=== PATIENT | female | born 1945 | race Caucasian/White ===

== ENCOUNTER → 2016-10-20 | Outpatient (CLI) | payer BC ==
[~2016-10-20] MED LIST: ADVIN50/60 INH; ALBUAER2 INH; CYAN3INJ IM; FLUC150T PO; INSDGI SC; INSUINJ14 SC; IPRASOL34 INH; MAGN1TAB15 PO; METF1000 PO; MULTCAP33 PO; POLY1POW2 PO; PRED1SUS3 OPB; ROPI0.5T15 PO; SIMV40TA2 PO; TELM40TA11 PO
[2016-10-20 10:58] LABS: HEMATOCRIT 39.5 % (37-47)
[2016-10-20 11:43] LABS: ESTIMATED AVERAGE GLUCOSE 160 mg/dl; HA1C FLAG Normal (Normal)
== END | disposition home or self-care (01) ==
LOC: C.LAB1850 09:38
PROVIDERS: ATTEND Nurse Practitioner Adult Health
DX: E11.9 Type 2 diabetes mellitus without complications (principal)

== ENCOUNTER → 2017-01-29 | Outpatient (CLI) | payer BC ==
[2017-01-29 12:17] LABS: BASO % 0.4 %; BASO ABS # 0.05 K/uL (0-0.2); COMPLETE YES; EOS % 1.1 %; HEMATOCRIT 38.8 % (37-47); IG% 1.2 %; LYMPH % 16.4 %; LYMPH ABS # 2.31 K/uL (1.2-3.4); MEAN CELL VOLUME 88.6 fL (80-100); MEAN CORPUSCULAR HEMOGLOBIN 26.7 pg (25-34); MEAN CORPUSCULAR HGB CONC 30.2 g/dl (32-36); MEAN PLATELET VOLUME 11.8 fL (7.4-10.4); MONO % 4.9 %; PLATELET COUNT 344 K/uL (130-400); RED BLOOD COUNT 4.38 M/uL (4.2-5.4); WHITE BLOOD COUNT 14.08 K/uL (4.8-10.8)
[2017-01-29 12:34] LABS: ALT/SGPT 10 U/L (12-78); BLOOD UREA NITROGEN 17 mg/dl (7-18); BUN/CREATININE RATIO 27.5 (10-20); CARBON DIOXIDE 31 mmol/L (21-32); CHLORIDE 105 mmol/L (98-107); CHOLESTEROL 192 mg/dl (0-200); CREATININE 0.61 mg/dl (0.60-1.20); GLUCOSE 82 mg/dl (70-99); POTASSIUM 3.9 mmol/L (3.5-5.1); SODIUM 143 mmol/L (136-145); TRIGLYCERIDES 64 mg/dl (0-150); VERY LOW DENSITY LIPOPROT CALC 13 mg/dl
[2017-01-29 12:35] LABS: CALCIUM 9.1 mg/dl (8.5-10.1)
[2017-01-29 12:45] LABS: ALB/GLOB RATIO 1.1 (0.9-2); ALKALINE PHOSPHATASE 68 U/L (45-117); AST/SGOT 6 U/L (15-37); CHOLESTEROL/HDL RATIO 2.3; HDL CHOLESTEROL 84 mg/dl; LDL CHOLESTEROL CALCULATED 95 mg/dl; THYROID STIMULATING HORMONE 0.804 uIu/ml (0.300-4.500)
[2017-01-29 12:55] LABS: RATIO 22.4 mcg/mg (0-30.0)
[2017-01-29 13:41] LABS: ESTIMATED AVERAGE GLUCOSE 194 mg/dl; HA1C FLAG Normal (Normal)
[2017-02-03 20:20] LABS: ALTERNARIA CLASS 0; ALTERNARIA IGE <0.10 KU/L; ASPERG FUMIG CLASS 0; ASPERG FUMIG IGE <0.10 KU/L; BAHIA GRASS ASM CLASS 0; BAHIA GRASS IGE <0.10 KU/L; BERMUDA GRASS CLASS 0; BERMUDA GRASS IGE <0.10 KU/L; BIRCH CLASS 0; BLACK LOCUST CLASS 0; BLACK LOCUST IGE <0.35 kU/L (<0.35); CAT DANDER CLASS 0; CLADOSPORIUM HER CLASS 0; CLADOSPORIUM HER IGE <0.10 KU/L; COCKROACH CLASS 0; D. FARINAE CLASS 0; D. FARINAE IGE <0.10 KU/L; D. PTERONYSSINUS CLASS 0; D. PTERONYSSINUS IGE <0.10 KU/L; DOG DANDER CLASS 0; ELM CLASS 0; ENGLISH PLAN CLASS 0; ENGLISH PLAN IGE <0.10 KU/L; JOHNSON CLASS 0; JOHNSON IGE <0.10 KU/L; JUNE (KENTUCKY BLUE) CLASS 0; JUNE IGE <0.10 KU/L; MAPLE (BOX ELDER) IGE <0.10 KU/L; MAPLE CLASS 0; MOUNTAIN CEDAR ASM CLASS 0; MOUNTAIN CEDAR IGE <0.10 KU/L; MUCOR CLASS 0; MUCOR IGE <0.10 KU/L; NETTLE CLASS 0; NETTLE IGE <0.10 KU/L; PENIC NOTATUM CLASS 0; PENIC NOTATUM IGE <0.10 KU/L; ROUGH PIGWEED CLASS 0; ROUGH PIGWEED IGE <0.10 KU/L; SHORT RAGWEED CLASS 0; SHORT RAGWEED IGE <0.10 KU/L; STEMPHY BOTRY CLASS 0; STEMPHY BOTRY IGE <0.10 KU/L; WHITE HICKORY ASM CLASS 0; WHITE HICKORY IGE <0.10 kU/L (<0.35); WHITE MULBERRY CLASS 0; WHITE MULBERRY IGE <0.10 KU/L
--- NOTE | 2017-02-05 08:18 | CODING QUERY MEDICAL NECESSITY ---
CQSUPPORTING DIAGNOSIS NEEDED A supporting diagnosis is required for the test/procedure performed on this patient in order for us to be reimbursed by the patient's insurance. Please provide a supporting diagnosis for the following test/procedure listed below next to the test name along with your signature. *If there is no additional diagnosis for this patient that would support the following test/procedure please document that below next to the test/procedure. Test(s)/Procedure(s) that require a supporting diagnosis: DOS 01/29/17 ALLERGY TESTING Provider Signature: Date: Thank you Lanny Whelan [employer] Once completed, please kindly fax back to [phone] For questions please call [phone]
== END | disposition home or self-care (01) ==
LOC: C.LABBFT 07:49
PROVIDERS: ATTEND Internal Medicine Pulmonary Disease
DX: J45.909 Unspecified asthma, uncomplicated (principal); I10 Essential (primary) hypertension; D50.8 Other iron deficiency anemias; E11.9 Type 2 diabetes mellitus without complications

== ENCOUNTER → 2017-04-09 | Outpatient (CLI) | payer BC ==
--- NOTE | 2017-04-10 12:18 | MAMMOGRAPHY REPORT ---
BILATERAL DIGITAL SCREENING MAMMOGRAM WITH CAD: 04/09/2017 CLINICAL HISTORY: Routine screening. Patient has no complaints. TECHNIQUE: Bilateral CC, MLO and repeat CC views with nipples in profile were obtained. Current stud y was also evaluated with a Computer Aided Detection (CAD) system. COMPARISON: Comparison is made to exams dated: 04/07/2016 mammogram, 04/04/2015 mammogram, 04/03/2014 m ammogram, 03/30/2013 mammogram, 03/29/2012 mammogram, and 03/26/2011 mammogram - [facility]. BREAST COMPOSITION: There are scattered areas of fibroglandular density in both breasts. FINDINGS: There are diffuse bilateral benign-appearing rodlike calcifications and vascular calcificat ions in the breasts. A stable circumscribed mass in the left upper outer quadrant. No new suspiciou s mass, architectural distortion or cluster of microcalcifications is seen. IMPRESSION: ACR BI-RADS CATEGORY 1: NEGATIVE There is no mammographic evidence of malignancy. A 1 year screening mammogram is recommended. The pa tient will receive written notification of the results. Approximately 10% of breast cancers are not detected with mammography. A negative mammographic report should not delay biopsy if a clinically suggestive mass is present. Maria Isabel Pham M.D. ay/:04/09/2017 15:44:54 Hemmer Lockstitch: Dee ODELL)(M), [facility] letter sent: Normal 1/2 BI-RADS Code: ACR BI-RADS Category 1: Negative
== END | disposition home or self-care (01) ==
LOC: C.MAMM 09:19
PROVIDERS: ATTEND Internal Medicine Pulmonary Disease
DX: Z12.31 Encounter for screening mammogram for malignant neoplasm of breast (principal)

== ENCOUNTER → 2017-06-02 | Outpatient (CLI) | payer BC ==
[2017-06-02 13:08] LABS: ESTIMATED AVERAGE GLUCOSE 143 mg/dl; HA1C FLAG Normal (Normal)
== END | disposition home or self-care (01) ==
LOC: C.LABBFT 07:25
PROVIDERS: ATTEND Nurse Practitioner Adult Health
DX: E11.9 Type 2 diabetes mellitus without complications (principal); Z79.4 Long term (current) use of insulin

== ENCOUNTER → 2017-06-05 | Outpatient (CLI) | payer BC ==
--- NOTE | 2017-06-05 09:55 | DIAGNOSTIC IMAGING REPORT ---
CHEST 2 VIEWS ROUTINE CLINICAL HISTORY: R05 [id number] dyspnea COMPARISON STUDY: 12/19/2015 FINDINGS: Unchanging calcified granulomas right lateral costophrenic angle. Thickening of the right minor fissure presumably secondary to localized fluid accumulation. Lungs otherwise appear clear. There are no focal infiltrative changes. IMPRESSION: Chronic change. Moderate thickening of the right minor fissure presumably secondary to localized fluid accumulation. Subsegmental atelectasis is also a consideration. Otherwise negative study. The above report was generated using voice recognition software. It may contain grammatical, syntax or spelling errors. Electronically signed by: Vijay Hernandez M.D. 06/05/2017 9:54 AM Dictated Date/Time: 06/05/2017 9:53 AM
== END | disposition home or self-care (01) ==
LOC: C.RAD1850 09:36
PROVIDERS: ATTEND Physician Assistant Medical
DX: R05 Cough (principal)

== ENCOUNTER → 2017-06-16 | Outpatient (CLI) | payer BC ==
[2017-06-16 12:29] LABS: BLOOD UREA NITROGEN 19 mg/dl (7-18); BUN/CREATININE RATIO 27.2 (10-20); CALCIUM 9.1 mg/dl (8.5-10.1); CARBON DIOXIDE 32 mmol/L (21-32); CHLORIDE 107 mmol/L (98-107); CREATININE 0.71 mg/dl (0.60-1.20); GLUCOSE 105 mg/dl (70-99); POTASSIUM 4.8 mmol/L (3.5-5.1); SODIUM 143 mmol/L (136-145)
== END | disposition home or self-care (01) ==
LOC: C.LAB1850 10:13
PROVIDERS: ATTEND Nurse Practitioner Adult Health
DX: E11.9 Type 2 diabetes mellitus without complications (principal); Z51.81 Encounter for therapeutic drug level monitoring; Z79.4 Long term (current) use of insulin

== ENCOUNTER → 2017-07-14 | Outpatient (CLI) | payer BC ==
--- NOTE | 2017-07-14 09:23 | DIAGNOSTIC IMAGING REPORT ---
CHEST 2 VIEWS ROUTINE CLINICAL HISTORY: R93.8 Abnormal chest [id number] COMPARISON STUDY: 06/05/2017 FINDINGS: The cardiac and mediastinal contours remain stable. There are calcified granulomas within the right lung base. There is decreasing fissural fluid on the right. There is no focal pulmonary consolidation. There is no failure.[ There is a 5 mm opacity within the left midlung zone. This is unlikely to be of clinical significance as bronchogenic carcinoma's of this size are almost never visible on conventional chest x-ray. IMPRESSION: 1. Decreasing fissural fluid 2. Calcified granulomas the right lung base 3. No acute findings. Electronically signed by: Leonidas Aaron M.D. 07/14/2017 9:22 AM Dictated Date/Time: 07/14/2017 9:15 AM
[2017-07-14 13:39] LABS: BLOOD UREA NITROGEN 15 mg/dl (7-18); BUN/CREATININE RATIO 23.2 (10-20); CARBON DIOXIDE 31 mmol/L (21-32); CHLORIDE 104 mmol/L (98-107); CREATININE 0.64 mg/dl (0.60-1.20); GLUCOSE 154 mg/dl (70-99); POTASSIUM 3.9 mmol/L (3.5-5.1); SODIUM 142 mmol/L (136-145)
== END | disposition home or self-care (01) ==
LOC: C.LAB1850 08:53
PROVIDERS: ATTEND Physician Assistant Medical
DX: E11.9 Type 2 diabetes mellitus without complications (principal); R91.8 Other nonspecific abnormal finding of lung field

== ENCOUNTER 2017-10-27 09:11 | Emergency (ER) | payer BC ==
[~2017-10-27] VITALS: Ht 165.1 cm; Wt 121.0 kg
[~2017-10-27 09:11] MED LIST changes: -PRED1SUS3 OPB; +PRED1SUS3 OPL
[2017-10-27 09:17] VITALS: TEMP 36.6; Ht 165.1 cm; Wt 121.0 kg
[2017-10-27] MEDS ORDERED: ONDANSETRON INJ 2 MG/ML 2 ML VIAL IV STA (09:33)
[2017-10-27 09:52] LABS: BASO % 0.6 %; BASO ABS # 0.04 K/uL (0-0.2); EOS % 9.1 %; EOS ABS # 0.64 K/uL (0-0.5); HEMATOCRIT 37.8 % (37-47); HEMOGLOBIN 11.6 g/dL (12.0-16.0); IG# 0.02 K/uL (0.00-0.02); LYMPH % 20.1 %; LYMPH ABS # 1.42 K/uL (1.2-3.4); MEAN CELL VOLUME 89.4 fL (80-100); MEAN CORPUSCULAR HEMOGLOBIN 27.4 pg (25-34); MEAN CORPUSCULAR HGB CONC 30.7 g/dl (32-36); MEAN PLATELET VOLUME 11.1 fL (7.4-10.4); MONO % 6.8 %; MONO ABS # 0.48 K/uL (0.11-0.59); NEUT % 63.1 %; NEUT ABS # 4.47 K/uL (1.4-6.5); PLATELET COUNT 288 K/uL (130-400); RED CELL DISTRIBUTION WIDTH CV 15.4 % (11.5-14.5); RED CELL DISTRIBUTION WIDTH SD 49.8 fL (36.4-46.3); WHITE BLOOD COUNT 7.07 K/uL (4.8-10.8)
[2017-10-27] MEDS: MoRPHine SULFATE 4 MG/ML 1 ML CARP\\VIAL IV PRN ×2 (09:53→12:31)
--- NOTE | 2017-10-27 09:54 | DIAGNOSTIC IMAGING REPORT ---
CHEST ONE VIEW PORTABLE CLINICAL HISTORY: ABDOMINAL PAIN/GI pain. Nausea. COMPARISON STUDY: 07/14/2017 FINDINGS: The bones soft tissues and hemidiaphragms are normal. The cardiomediastinal silhouette is normal. The lungs are clear. The pulmonary vasculature is normal. Mild chronic bibasilar interstitial and peribronchial change. Unchanged calcified granulomas right base. IMPRESSION: Chronic change. No acute process. The above report was generated using voice recognition software. It may contain grammatical, syntax or spelling errors. Electronically signed by: Vijay Hernandez M.D. 10/27/2017 9:52 AM Dictated Date/Time: 10/27/2017 9:51 AM
[2017-10-27 10:01] LABS: INR 0.9 (0.9-1.1); PTT PATIENT 27.3 SECONDS (21.0-31.0)
--- NOTE | 2017-10-27 10:02 | EMERGENCY ROOM VISIT NOTE ---
History Report prepared by Danette: Mayra Pugh Under the Supervision of: Dr. Rajendra Francisco D.O. First contact with patient: 09:23 Chief Complaint: FLANK PAIN Stated Complaint: PAIN IN BACK LEFT SIDE History of Present Illness The patient is a 72 year old female who presents to the Emergency Room with complaints of constant left flank pain beginning Thursday, four days ago. The patient states her pain worsens when she moves and coughs. She denies any urinary bleeding, increased urination, leg pain, chest pain, fevers, rashes or chills. The patient took two Aleve yesterday with minimal relief. The patient has a history of asthma, double knee replacement, hip replacement, hysterectomy , appendectomy, and cholecystectomy. 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 Source of History: patient Onset: four days ago Position: other (left flank) Timing: constant Modifying Factors (Worsening): movement Associated Symptoms: No fevers, No chills, No chest pain, No urinary symptoms Review of Systems See HPI for pertinent positives & negatives. A total of 10 systems reviewed and were otherwise negative. Past Medical & Surgical Medical Problems: (1) Asthma (2) DM (diabetes mellitus) (3) HTN (hypertension) Family History Patient reports no known family medical history. Social History Smoking Status: Never Smoker Marital Status: Housing Status: lives with family Occupation Status: employed Current/Historical Medications Scheduled Amlodipine Besylate (Norvasc), 5 MG PO DAILY Cefdinir (Omnicef), 300 MG PO Q12H Cyanocobalamin (Vitamin B-12 Inj), 1 INJ IM MONTHLY Fluticasone Prop/Salmeterol (Advair Diskus 500/50 60 Dose), 1 PUFF INH BID Insulin Aspart Penfill (Novolog Penfill), 0 SC ACHS Insulin Glargine (Lantus), 35 UNITS SC HS Magnesium Chloride-Calcium (Slow Magnesium/Calcium), 1 TAB PO BID Metformin Hcl (Glucophage), 1,000 MG PO QAM Multiple Vitamins W/ Minerals (Preservision Areds), 1 CAP PO BID Polyethylene Glycol 3350 (Bulk (Polyethylene Glycol 3350), 0.5 DOSE PO QAM Prednisolone Acetate 1% Oph (Pred Forte 1% Oph), 1 DROP OPB QAM Ropinirole (Requip), 1.5 MG PO HS Simvastatin (Zocor), 40 MG PO QPM Telmisartan (Micardis), 40 MG PO QAM Scheduled PRN Albuterol (Ventolin Hfa), 2 PUFFS INH Q4H PRN for Shortness of Breath Fluconazole (Diflucan), 150 MG PO WK PRN Ipratropium-Albuterol (Duoneb), 1 TREATMENT INH TID PRN for Shortness of Breath Oxycodone Immediate Rel Tab (Roxicodone Ir), 1 TAB PO Q4H PRN for Severe Pain Allergies Coded Allergies: No Known Allergies (Verified , 10/27/17) Physical Exam Vital Signs Date Time Temp Pulse Resp B/P (MAP) Pulse Ox O2 Delivery O2 Flow Rate FiO2 10/27/17 14:27 74 20 136/84 96 10/27/17 13:22 77 10/27/17 12:36 96 Nasal Cannula 2.0 10/27/17 12:27 81 20 158/70 95 Nasal Cannula 2.0 10/27/17 10:30 78 20 140/65 92 Room Air 10/27/17 09:52 82 20 168/83 94 Room Air 10/27/17 09:36 96 Room Air 10/27/17 09:33 82 10/27/17 09:17 36.6 83 20 161/80 93 Room Air Physical Exam GENERAL: Patient is awake, alert, and in no acute distress. Patient is uncomfortable appearing and very anxious. EYES: The conjunctivae are clear. The pupils are round and reactive. EARS, NOSE, MOUTH AND THROAT: The nose is without any evidence of any deformity. Mucous membranes are moist tongue is midline NECK: The neck is nontender and supple. RESPIRATORY: Lung sounds diminished throughout, no tachypnea or conversational dyspnea. CARDIOVASCULAR: Regular rate and rhythm noted there no murmurs rubs or gallops normal S1 normal S2 GASTROINTESTINAL: The abdomen is mild distend, no guarding or rigidity. Bowel sounds are present in all quadrants. Abdomen is nontender BACK: No midline tenderness or or step-off noted range of motion in flexion extension as well as rotation no signs of muscle spasm noted MUSCULOSKELETAL/EXTREMITIES: There is no evidence of gross deformity full range of motion is noted in the hips and shoulders SKIN: Pedal edema bilaterally. There is no obvious evidence of any rash. There are no petechiae, pallor or cyanosis noted. NEUROLOGIC: Patient is awake alert and oriented x3 Medical Decision & Procedures ER Provider Diagnostic Interpretation: Radiology results as stated below per my review and radiologist interpretation: CHEST ONE VIEW PORTABLE FINDINGS: The bones soft tissues and hemidiaphragms are normal. The cardiomediastinal silhouette is normal. The lungs are clear. The pulmonary vasculature is normal. Mild chronic bibasilar interstitial and peribronchial change. Unchanged calcified granulomas right base. IMPRESSION: Chronic change. No acute process. The above report was generated using voice recognition software. It may contain grammatical, syntax or spelling errors. Electronically signed by: Vijay Hernandez M.D. ABD/PELVIS NO IV OR ORAL CONT FINDINGS: [employer] Head topogram: Cholecystectomy clips. Total left hip arthroplasty. Lung bases: Multiple solid pulmonary nodules measuring up to 5 mm noted at the lung bases. Calcified pleural plaque on the right. Normal heart size. No pericardial or pleural effusion. Several prominent though small pericardial lymph nodes also noted. Liver: Normal morphology. Density consistent with hepatic steatosis. Biliary: No gross biliary ductal dilatation allowing for noncontrast technique. Gallbladder surgically absent. Pancreas: Moderate parenchymal atrophy. Spleen: Normal noncontrast appearance. Adrenal glands: Normal noncontrast appearance. Kidneys and ureters: Nonobstructing 5 mm calculus at the lower pole the right kidney. No hydronephrosis. Bladder: Incompletely evaluated secondary to underdistention. Pelvic organs: Normal noncontrast appearance. Bowel: Moderate stool burden in the right colon. The patient appears to be postappendectomy. Subtle evidence of mild small bowel wall thickening. No bowel obstruction. Peritoneal cavity: No free fluid or intraperitoneal gas. Lymph nodes: Scattered subcentimeter retroperitoneal nodes likely reactive. Borderline enlarged right external iliac lymph nodes measuring up to 9 mm in short axis. No inguinal lymphadenopathy. Vasculature: Atherosclerosis of the normal caliber abdominal aorta. Abdominal wall: Nonspecific subcutaneous edema in the lumbar region. Musculoskeletal: Total left hip arthroplasty. The acetabular screw courses medial to the medial acetabular wall without significant effect on the adjacent soft tissues. Degenerative changes of the spine. Mild osteopenia. IMPRESSION: 1. Multiple solid pulmonary nodules at the lung bases measuring up to 5 mm. At least a few of these nodules were present in 2009. Multifocal sites of consolidation in the right lung limited evaluation on the prior chest CT to assess for the presence of additional nodules. Follow-up recommended as the chronicity of several nodules cannot be determined. 2. Borderline right external iliac lymphadenopathy. This lymph nodes could be reactive. 3. There is subtle evidence of mild small bowel wall thickening. Correlate for symptoms of enteritis. 4. No evidence of nephrolithiasis or hydronephrosis. 5. Nonobstructing right renal calculus. Please refer to below summary of Fleischner Society 2017 recommendations for follow-up of incidental CT nodules (Shola Michaels et al. Guidelines for management of incidental pulmonary nodules detected on CT images: From the Fleischner Society 2017. Radiology 2017; 284: 228-243.) SOLID NODULES Single nodule; size < 6 mm * Low risk patients: No routine follow-up * High risk patients: Optional CT at 12 months Single nodule; size 6-8 mm * Low risk patients: CT at 6-12 months, then consider CT at 18-24 months * High risk patients: CT at 6-12 months, then at 18-24 months Single nodule; size > 8 mm * Either low or high risk patients: Considered CT at 3 months, PET/CT, or tissue sampling Multiple nodules; size < 6 mm * Low risk patients: No routine follow up * High risk patients: Optional CT at 12 months Multiple nodules; size 6-8 mm * Low risk patients: CT at 3-6 months, then consider CT at 18-24 months * High risk patients: CT at 3-6 months, then at 18-24 months Multiple nodules; size > 8 mm * Low risk patients: CT at 3-6 months, then consider at 18-24 months * High risk patients: CT at 3-6 months, then at 18-24 months Note: These guidelines apply to incidental nodules. These guidelines do not apply to patients younger than 35 years, immunocompromised patients, or patients with cancer. * Low risk patients: Minimal or absent history of smoking and/or other known risk factors * High risk patients: History of smoking, exposure to other carcinogens, emphysema, fibrosis, upper lobe location, family history of lung cancer, etc. * If a nodule up to 8 mm is partly solid or is ground glass, further follow-up is required after 24 months to exclude possible slow growing adenocarcinoma. SUBSOLID NODULES Single ground-glass nodule * Nodule size < 6 mm: No routine follow-up * Nodule size > or = 6 mm: CT at 6-12 months to confirm persistence, then CT every 2 years until 5 years Single part-solid nodule * Nodule size < 6 mm: No routine follow-up * Nodules size > or = 6 mm: CT at 3-6 months to confirm persistence. If unchanged and solid component remains < 6 mm, annual CT should be performed for 5 years Multiple nodules * Nodule size < 6 mm: CT at 3-6 months. If stable, consider CT at 2 and 4 years. * Nodules size > or = 6 mm: CT at 3-6 months. Subsequent management based on the most suspicious nodule(s) Electronically signed by: Jhonny Guzman M.D. Laboratory Results 10/27/17 09:35 Red Blood Count 4.23, Mean Corpuscular Volume 89.4, Mean Corpuscular Hemoglobin 27.4, Mean Corpuscular Hemoglobin Concent 30.7, Mean Platelet Volume 11.1, Neutrophils (%) (Auto) 63.1, Lymphocytes (%) (Auto) 20.1, Monocytes (%) (Auto) 6.8, Eosinophils (%) (Auto) 9.1, Basophils (%) (Auto) 0.6, Neutrophils # (Auto) 4.47, Lymphocytes # (Auto) 1.42, Monocytes # (Auto) 0.48, Eosinophils # (Auto) 0.64, Basophils # (Auto) 0.04 10/27/17 09:35 Test 10/27/17 09:35 10/27/17 11:30 White Blood Count 7.07 K/uL (4.8-10.8) Red Blood Count 4.23 M/uL (4.2-5.4) Hemoglobin 11.6 g/dL (12.0-16.0) Hematocrit 37.8 % (37-47) Mean Corpuscular Volume 89.4 fL (80-100) Mean Corpuscular Hemoglobin 27.4 pg (25-34) Mean Corpuscular Hemoglobin Concent 30.7 g/dl (32-36) Platelet Count 288 K/uL (130-400) Mean Platelet Volume 11.1 fL (7.4-10.4) Neutrophils (%) (Auto) 63.1 % Lymphocytes (%) (Auto) 20.1 % Monocytes (%) (Auto) 6.8 % Eosinophils (%) (Auto) 9.1 % Basophils (%) (Auto) 0.6 % Neutrophils # (Auto) 4.47 K/uL (1.4-6.5) Lymphocytes # (Auto) 1.42 K/uL (1.2-3.4) Monocytes # (Auto) 0.48 K/uL (0.11-0.59) Eosinophils # (Auto) 0.64 K/uL (0-0.5) Basophils # (Auto) 0.04 K/uL (0-0.2) RDW Standard Deviation 49.8 fL (36.4-46.3) RDW Coefficient of Variation 15.4 % (11.5-14.5) Immature Granulocyte % (Auto) 0.3 % Immature Granulocyte # (Auto) 0.02 K/uL (0.00-0.02) Prothrombin Time 9.7 SECONDS (9.0-12.0) Prothromb Time International Ratio 0.9 (0.9-1.1) Activated Partial Thromboplast Time 27.3 SECONDS (21.0-31.0) Partial Thromboplastin Ratio 1.1 Anion Gap 5.0 mmol/L (3-11) Est Creatinine Clear Calc Drug Dose 97.5 ml/min Estimated GFR () 100.9 Estimated GFR (Non- 87.0 BUN/Creatinine Ratio 23.7 (10-20) Calcium Level 8.4 mg/dl (8.5-10.1) Total Bilirubin 0.5 mg/dl (0.2-1) Direct Bilirubin 0.1 mg/dl (0-0.2) Aspartate Amino Transf (AST/SGOT) 5 U/L (15-37) Alanine Aminotransferase (ALT/SGPT) 9 U/L (12-78) Alkaline Phosphatase 83 U/L (45-117) Total Creatine Kinase 18 U/L (26-192) Creatine Kinase MB 0.7 ng/ml (0.5-3.6) Creatine Kinase MB Ratio 3.9 (0-3.0) Troponin I < 0.015 ng/ml (0-0.045) Total Protein 6.5 gm/dl (6.4-8.2) Albumin 3.0 gm/dl (3.4-5.0) Lipase 161 U/L (73-393) Urine Color YELLOW Urine Appearance CLEAR (CLEAR) Urine pH 5.0 (4.5-7.5) Urine Specific [place] 1.026 (1.000-1.030) Urine Protein NEG (NEG) Urine Glucose (UA) NEG (NEG) Urine Ketones NEG (NEG) Urine Occult Blood NEG (NEG) Urine Nitrite POS (NEG) Urine Bilirubin NEG (NEG) Urine Urobilinogen NEG (NEG) Urine Leukocyte Esterase MODERATE (NEG) Urine WBC (Auto) >30 /hpf (0-5) Urine RBC (Auto) 0-4 /hpf (0-4) Urine Hyaline Casts (Auto) 1-5 /lpf (0-5) Urine Epithelial Cells (Auto) >30 /lpf (0-5) Urine Bacteria (Auto) 1+ (NEG) Urine Pathogenic Casts /lpf (0) Laboratory results per my review. Medications Administered Medications (Trade) Dose Ordered Sig/Leonel Route Start Time Stop Time Status Last Admin Dose Admin Morphine Sulfate (MoRPHine SULFATE INJ) 4 mg Q15M PRN IV 10/27/17 09:45 10/27/17 15:33 DC 10/27/17 12:31 4 MG Ondansetron HCl (Zofran Inj) 4 mg NOW STAT IV 10/27/17 09:33 10/27/17 09:35 DC 10/27/17 09:53 4 MG Ceftriaxone Sodium (Rocephin Inj) 1 gm NOW STAT IV 10/27/17 12:04 10/27/17 12:05 DC 10/27/17 12:28 1 GM ECG Indication: back/shoulder pain Rate (beats per minute): 81 Rhythm: sinus rhythm Findings: 1st degree AV block, RBBB, no ectopy Comparison ECG Date: 12/11/13 Change: no significant change Change: EKG interpreted by me. ED Course 0932: The patient was evaluated in room B9. A complete history and physical examination were performed. 0933: Ordered Zofran Inj 4 mg. 0945: Ordered Morphine Sulfated 4 mg IV. 1204: Ordered Rocephin Inj 1 gm IV. 1352: I updated the patient on her test results. 1400: Upon reevaluation, the patient is resting comfortably. I discussed the results and treatment plan with her. She verbalized agreement of the treatment plan. The patient was discharged home. Medical Decision Differential diagnosis: Etiologies such as renal colic, appendicitis, diverticulitis, mesenteric ischemia, aortic pathology, infections, inflammatory bowel disease, PUD, biliary pathology, UTI, as well as others were entertained. Nursing notes reviewed. The patient is a 72-year-old female who presented to the emergency department for an evaluation of left flank pain. The patient did not complain of chest pain but she stated that her pain wrapped around to her upper abdomen. Her EKG did show some changes consistent with a new right bundle-branch block. This does not appear to be related to today's presentation. Her pain is more reproducible. Her cardiac biomarker was negative. The patient had a CAT scan which did not reveal any acute intra-abdominal process but did show some pulmonary nodules. The patient is treated with IV pain medicine and IV antiemetics. She was also treated with IV antibiotics. I discussed the patient' s laboratory radiographic studies with her. Her urinalysis appears to be consistent with a urinary tract infection. I discussed follow-up with the patient. She was encouraged to drink plenty clear liquids and continue all medications as prescribed. She was also encouraged to call her primary care physician to schedule follow-up appointment but return to the emergency department immediately if symptoms change worsen or the need arises. Medication Reconcilliation Current Medication List: was personally reviewed by me Blood Pressure Screening Patient's blood pressure: Elevated blood pressure Blood pressure disposition: Elevated BP felt to be situational Impression Primary Impression: Left flank pain Additional Impressions: Urinary tract infection Abnormal EKG Scribe Attestation The scribe's documentation has been prepared under my direction and personally reviewed by me in its entirety. I confirm that the note above accurately reflects all work, treatment, procedures, and medical decision making performed by me. Departure Information Dispostion Home / Self-Care Prescriptions Oxycodone Immediate Rel Tab (ROXICODONE IR) 5 Mg Tab 1 TAB PO Q4H Y for Severe Pain, #20 TAB Prov: Rajendra Francisco, DO 10/27/17 Cefdinir (Omnicef) 300 Mg Cap 300 MG PO Q12H, #14 CAP Prov: Rajendra Francisco, DO 10/27/17 Referrals Jean Beach M.D. (PCP) Forms HOME CARE DOCUMENTATION FORM, IMPORTANT VISIT INFORMATION Patient Instructions My [facility], Urinary Tract Infecs Women Additional Instructions Call your family to schedule a follow-up appointment. Drink plenty clear liquids. Continue all medications as prescribed. You may also asked her primary care physician specifically about the EKG was done in the emergency department today as well as the CAT scan which did show some nodules in your lung which appear to be present on previous scans. Return to the emergency department immediately if symptoms change worsen or the need arises. Problem Qualifiers Additional Impressions: Urinary tract infection Urinary tract infection type: site unspecified Hematuria presence: without hematuria Qualified Codes: N39.0 - Urinary tract infection, site not specified
[2017-10-27 10:09] LABS: BLOOD UREA NITROGEN 16 mg/dl (7-18); CALCIUM 8.4 mg/dl (8.5-10.1); CARBON DIOXIDE 29 mmol/L (21-32); CREATININE 0.66 mg/dl (0.60-1.20); GLUCOSE 123 mg/dl (70-99); POTASSIUM 4.1 mmol/L (3.5-5.1); SODIUM 140 mmol/L (136-145)
[2017-10-27 10:10] LABS: ALT/SGPT 9 U/L (12-78); AST/SGOT 5 U/L (15-37); LIPASE 161 U/L (73-393)
[2017-10-27 10:15] LABS: ALKALINE PHOSPHATASE 83 U/L (45-117); CKMB 0.7 ng/ml (0.5-3.6); TOTAL PROTEIN 6.5 gm/dl (6.4-8.2)
--- NOTE | 2017-10-27 10:25 | DIAGNOSTIC IMAGING REPORT ---
ABD/PELVIS NO IV OR ORAL CONT CLINICAL HISTORY: 72 years-old Female presenting with left flank pain. TECHNIQUE: Multidetector CT of the abdomen and pelvis was performed without the use of intravenous contrast. IV contrast: None. A dose lowering technique was used consistent with the principles of ALARA (as low as reasonably achievable). COMPARISON: 08/18/[address] from 02/12/2010. CT DOSE (mGy.cm): The estimated cumulative dose is 1869.01 mGy.cm. 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 Total left hip arthroplasty. Lung bases: Multiple solid pulmonary nodules measuring up to 5 mm noted at the lung bases. Calcified pleural plaque on the right. Normal heart size. No pericardial or pleural effusion. Several prominent though small pericardial lymph nodes also noted. Liver: Normal morphology. Density consistent with hepatic steatosis. Biliary: No gross biliary ductal dilatation allowing for noncontrast technique. Gallbladder surgically absent. Pancreas: Moderate parenchymal atrophy. Spleen: Normal noncontrast appearance. Adrenal glands: Normal noncontrast appearance. Kidneys and ureters: Nonobstructing 5 mm calculus at the lower pole the right kidney. No hydronephrosis. Bladder: Incompletely evaluated secondary to underdistention. Pelvic organs: Normal noncontrast appearance. Bowel: Moderate stool burden in the right colon. The patient appears to be postappendectomy. Subtle evidence of mild small bowel wall thickening. No bowel obstruction. Peritoneal cavity: No free fluid or intraperitoneal gas. Lymph nodes: Scattered subcentimeter retroperitoneal nodes likely reactive. Borderline enlarged right external iliac lymph nodes measuring up to 9 mm in short axis. No inguinal lymphadenopathy. Vasculature: Atherosclerosis of the normal caliber abdominal aorta. Abdominal wall: Nonspecific subcutaneous edema in the lumbar region. Musculoskeletal: Total left hip arthroplasty. The acetabular screw courses medial to the medial acetabular wall without significant effect on the adjacent soft tissues. Degenerative changes of the spine. Mild osteopenia. IMPRESSION: 1. Multiple solid pulmonary nodules at the lung bases measuring up to 5 mm. At least a few of these nodules were present in 2009. Multifocal sites of consolidation in the right lung limited evaluation on the prior chest CT to assess for the presence of additional nodules. Follow-up recommended as the chronicity of several nodules cannot be determined. 2. Borderline right external iliac lymphadenopathy. This lymph nodes could be reactive. 3. There is subtle evidence of mild small bowel wall thickening. Correlate for symptoms of enteritis. 4. No evidence of nephrolithiasis or hydronephrosis. 5. Nonobstructing right renal calculus. Please refer to below summary of Fleischner Society 2017 recommendations for follow-up of incidental CT nodules (Shola Michaels et al. Guidelines for management of incidental pulmonary nodules detected on CT images: From the Fleischner Society 2017. Radiology 2017; 284: 228-243.) SOLID NODULES Single nodule; size < 6 mm * Low risk patients: No routine follow-up * High risk patients: Optional CT at 12 months Single nodule; size 6-8 mm * Low risk patients: CT at 6-12 months, then consider CT at 18-24 months * High risk patients: CT at 6-12 months, then at 18-24 months Single nodule; size > 8 mm * Either low or high risk patients: Considered CT at 3 months, PET/CT, or tissue sampling Multiple nodules; size < 6 mm * Low risk patients: No routine follow up * High risk patients: Optional CT at 12 months Multiple nodules; size 6-8 mm * Low risk patients: CT at 3-6 months, then consider CT at 18-24 months * High risk patients: CT at 3-6 months, then at 18-24 months Multiple nodules; size > 8 mm * Low risk patients: CT at 3-6 months, then consider at 18-24 months * High risk patients: CT at 3-6 months, then at 18-24 months Note: These guidelines apply to incidental nodules. These guidelines do not apply to patients younger than 35 years, immunocompromised patients, or patients with cancer. * Low risk patients: Minimal or absent history of smoking and/or other known risk factors * High risk patients: History of smoking, exposure to other carcinogens, emphysema, fibrosis, upper lobe location, family history of lung cancer, etc. * If a nodule up to 8 mm is partly solid or is ground glass, further follow-up is required after 24 months to exclude possible slow growing adenocarcinoma. SUBSOLID NODULES Single ground-glass nodule * Nodule size < 6 mm: No routine follow-up * Nodule size > or = 6 mm: CT at 6-12 months to confirm persistence, then CT every 2 years until 5 years Single part-solid nodule * Nodule size < 6 mm: No routine follow-up * Nodules size > or = 6 mm: CT at 3-6 months to confirm persistence. If unchanged and solid component remains < 6 mm, annual CT should be performed for 5 years Multiple nodules * Nodule size < 6 mm: CT at 3-6 months. If stable, consider CT at 2 and 4 years. * Nodules size > or = 6 mm: CT at 3-6 months. Subsequent management based on the most suspicious nodule(s) Electronically signed by: Jhonny Guzman M.D. 10/27/2017 10:24 AM Dictated Date/Time: 10/27/2017 10:12 AM
[2017-10-27] MEDS ORDERED: AMLO5TAB2 PO (10:58)
[2017-10-27] MEDS ORDERED: CEFTRIAXONE SOD INJ 1 GM ADDVIAL IV STA (12:04)
[2017-10-27 12:36] VITALS: O2SAT 96
[2017-10-27] MEDS ORDERED: CEFD1CAP14 PO (13:50)
[2017-10-27] MEDS ORDERED: OXYC1TAB3 PO (13:51)
[2017-10-27 14:27] VITALS: BP 136/84; PULSE 74; O2SAT 96
--- NOTE | 2017-10-29 14:22 | Pharmacy Progress Note ---
ED Pharmacist Culture FollowUp Date of Service: Oct 29, 2017. Patient was sent home with a prescription for cefdinir 300 mg BID x 7 days, which should cover the Klebsiella pneumoniae and alpha strep. not enterococcus growing from the patient's urine culture.
== END 2017-10-27 14:28 | disposition home or self-care (01) ==
LOC: C.EDB 09:12
DX: R10.9 Unspecified abdominal pain (principal); R94.31 Abnormal electrocardiogram [ECG] [EKG]; R91.8 Other nonspecific abnormal finding of lung field; J45.909 Unspecified asthma, uncomplicated; E11.9 Type 2 diabetes mellitus without complications; I10 Essential (primary) hypertension; Z79.4 Long term (current) use of insulin; Z79.84 Long term (current) use of oral hypoglycemic drugs; Z90.49 Acquired absence of other specified parts of digestive tract

== ENCOUNTER 2017-10-29 12:36 | Emergency (ER) | payer BC ==
[~2017-10-29] VITALS: Ht 172.7 cm; Wt 120.0 kg
[~2017-10-29 12:36] MED LIST changes: +AMLO5TAB2 PO; +CEFD1CAP14 PO; +OXYC1TAB3 PO
[2017-10-29 12:38] VITALS: TEMP 36.6; Ht 172.7 cm; Wt 120.0 kg
[2017-10-29] MEDS ORDERED: ONDANSETRON INJ 2 MG/ML 2 ML VIAL IV STA (12:51)
--- NOTE | 2017-10-29 13:12 | EMERGENCY ROOM VISIT NOTE ---
History Report prepared by Danette: Paresh Simon Under the Supervision of: Dr. Rajendra Francisco D.O. First contact with patient: 12:42 Chief Complaint: FLANK PAIN Stated Complaint: PAIN LEFT SIDE History of Present Illness The patient is a 72 year old female who presents to the Emergency Room with complaints of worsening left flank pain that began five days ago. She rates her pain as a 9/10 in severity. Per the patient's report, the patient presented to the ER two days ago due to left flank pain. She was found to have non reproducible pain, but the pain was worsened with movement. The patient's UA showed she had a UTI, which she was treated with Rocephin in the ED for. She was sent home with a prescription of Omnicef and pain medication and was told to return to the ED if her symptoms worsened. The patient states that she has been taking her Omnicef, which she admits has mildly relieved her pain. She reports that over the last couple of days, her left flank pain has worsened and has been radiating into her back and chest. She states that today when she took a dose of OxyContin at 1130 this morning, but states that she vomited after taking it. The patient states that she become short of breath. She reports that she typically wears oxygen at night and if she knows she has to walk far. The patient denies rashes, leg pain or swelling, abdominal pain, constipation. Source of History: patient Onset: five days ago Position: other (left flank) Symptom Intensity: 9/10 Timing: worsening Modifying Factors (Worsening): movement Modifying Factors (Relieving): other (OxyContin, Omnicef) Associated Symptoms: + chest pain, + SOB, + vomiting, + back pain, No abdominal pain, No rash Review of Systems See HPI for pertinent positives & negatives. A total of 10 systems reviewed and were otherwise negative. Past Medical & Surgical Medical Problems: (1) Asthma (2) DM (diabetes mellitus) (3) HTN (hypertension) Family History Cancer Diabetes mellitus Heart disease Hypertension Lung disease Social History Smoking Status: Never Smoker Marital Status: Housing Status: lives with family Occupation Status: employed Current/Historical Medications Scheduled Amlodipine Besylate (Norvasc), 5 MG PO DAILY Cefdinir (Omnicef), 300 MG PO Q12H Cyanocobalamin (Vitamin B-12 Inj), 1 INJ IM MONTHLY Fluticasone Prop/Salmeterol (Advair Diskus 500/50 60 Dose), 1 PUFF INH BID Insulin Aspart Penfill (Novolog Penfill), 0 SC ACHS Insulin Glargine (Lantus), 40 UNITS SC HS Ipratropium-Albuterol (Duoneb), 1 TREATMENT INH QID Magnesium Chloride-Calcium (Slow Magnesium/Calcium), 1 TAB PO BID Metformin Hcl (Glucophage), 1,000 MG PO QAM Multiple Vitamins W/ Minerals (Preservision Areds), 1 CAP PO BID Omeprazole (Omeprazole), 1 TAB PO DAILY Polyethylene Glycol 3350 (Bulk (Polyethylene Glycol 3350), 0.5 DOSE PO QAM Prednisolone Acetate 1% Oph (Pred Forte 1% Oph), 1 DROP OPL Q2D Ropinirole (Requip), 1.5 MG PO HS Simvastatin (Zocor), 40 MG PO QPM Telmisartan (Micardis), 40 MG PO QAM Scheduled PRN Albuterol (Ventolin Hfa), 2 PUFFS INH Q4H PRN for Shortness of Breath Oxycodone Immediate Rel Tab (Roxicodone Ir), 1 TAB PO Q4H PRN for Severe Pain Oxycodone Immediate Rel Tab (Roxicodone Ir), 1-2 TAB PO Q4H PRN for Severe Pain Allergies Coded Allergies: No Known Allergies (Verified , 10/29/17) Physical Exam Vital Signs Date Time Temp Pulse Resp B/P (MAP) Pulse Ox O2 Delivery O2 Flow Rate FiO2 10/29/17 17:30 75 16 115/76 98 10/29/17 16:15 80 16 163/70 96 Nasal Cannula 2.0 10/29/17 15:00 75 16 137/63 98 Room Air 10/29/17 13:49 72 10/29/17 12:38 36.6 80 20 160/80 93 Nasal Cannula 2.0 Physical Exam GENERAL: Patient is awake, alert, and in no acute distress. Patient is resting comfortably and showing no signs of anxiety EYES: The conjunctivae are clear. The pupils are round and reactive. EARS, NOSE, MOUTH AND THROAT: The nose is without any evidence of any deformity. Mucous membranes are moist tongue is midline NECK: The neck is nontender and supple. RESPIRATORY: Diminished breath sounds throughout. No tachypnea or dyspneic conversation upon exam. There is no evidence of wheezing rhonchi or rales CARDIOVASCULAR: Regular rate and rhythm noted there no murmurs rubs or gallops normal S1 normal S2 GASTROINTESTINAL: The abdomen is soft. Bowel sounds are present in all quadrants. Left lower chest wall and left upper quadrant tenderness to palpation. No guarding or rigidity is appreciated. BACK: No midline tenderness or or step-off noted range of motion in flexion extension as well as rotation no signs of muscle spasm noted MUSCULOSKELETAL/EXTREMITIES: There is no evidence of gross deformity full range of motion is noted in the hips and shoulders SKIN: There is no obvious evidence of any rash. There are no petechiae, pallor or cyanosis noted. Pedal edema bilaterally. NEUROLOGIC: Patient is awake alert and oriented x3 strength is symmetric patellar reflexes are 2+ bilaterally Medical Decision & Procedures ER Provider Diagnostic Interpretation: Radiology results as stated below per my review and radiologist interpretation: CHEST ONE VIEW PORTABLE CLINICAL HISTORY: ABDOMINAL PAIN/GI pain. Nausea. COMPARISON STUDY: 10/27/2017 FINDINGS: Slight peribronchial prominence throughout both hemithoraces. This is slightly increased from the prior exam. A true focal or consolidative infiltrative process is not present. Upper lungs are clear. IMPRESSION: Slightly progressive peribronchial prominence throughout both hemithoraces raises the possibility of a nonspecific lower airway inflammatory process versus bronchitis. The above report was generated using voice recognition software. It may contain grammatical, syntax or spelling errors. Electronically signed by: Vijay Hernandez M.D. 10/29/2017 1:09 PM Dictated Date/Time: 10/29/2017 1:08 PM (CHEST FOR PE) ANGIO WITH CLINICAL HISTORY: 72 years-old Female presenting with ^left CP. TECHNIQUE: Multidetector CT angiography of the chest was performed after administration of intravenous contrast. 3-D volumetric and/or maximum intensity projection (MIP) images were subsequently reconstructed for review. IV contrast: 96 mL of Optiray 320. A dose lowering technique was used consistent with the principles of ALARA (as low as reasonably achievable). COMPARISON: 02/12/2010. CT DOSE (mGy.cm): The estimated cumulative dose is 650.19 mGy.cm. FINDINGS: Record Filing Clerk topogram: Cardiomegaly. Cholecystectomy clips. Pulmonary vasculature: The study is suboptimal for the assessment of the pulmonary vascular tree secondary to timing of the contrast bolus and respiratory motion artifact. Allowing for limited image quality, no central filling defect to suggest pulmonary embolus. Main pulmonary artery enlarged measuring 3.1 cm in transverse dimension. No flattening of the interventricular septum. No intracardiac filling defect. No reflux of contrast into the hepatic veins. Remaining chest: On soft tissue windows, normal thyroid and thoracic inlet. Prominent lymph node in the right supra clavicular fossa, which measures 8 mm in short axis (series 4 image 263). No axillary lymphadenopathy. Enlarged mediastinal and bilateral hilar lymph nodes. A prominent lymph node in the right paratracheal region measures 9 mm in the short axis (series 4 image 222). Hilar lymph nodes are difficult to discretely measure. Atherosclerosis of the aorta. Multichamber enlargement of the heart. Coronary artery and aortic valve calcification. No pericardial or pleural effusion. Borderline hepatic steatosis. On lung windows, Mosaic attenuation at the right upper lobe. Possible loculated fluid in the right major fissure along the superior segment of the right lower lobe. Solid 5 mm pulmonary nodule in the right upper lobe (series 4 image 160). Solid 6 mm nodule in the right middle lobe (series 4 image 139). Numerous additional solid nodules in the right lung involving all 3 lobes. Partially calcified solid nodule measuring 5 mm in the left lower lobe (series 4 image 79). Central airways patent. On bone windows, degenerative changes of the spine. Acute minimally displaced fracture of the left lateral eighth rib. IMPRESSION: 1. Multiple solid pulmonary nodules involving all 5 lobes. These are most concerning for pulmonary metastases. Correlate with an underlying malignancy. 2. Borderline enlarged bilateral hilar, mediastinal, and right supraclavicular lymphadenopathy. This is also concerning for metastatic disease. 3. Acute minimally displaced fracture of the left lateral eighth rib. 4. No evidence of pulmonary embolus. 5. Enlargement of the main pulmonary artery suggests pulmonary arterial hypertension. The report will be called/faxed according to standard departmental protocol. Electronically signed by: Jhonny Guzman M.D. 10/29/2017 4:24 PM Dictated Date/Time: 10/29/2017 4:11 PM Laboratory Results 10/29/17 13:10 Red Blood Count 4.14, Mean Corpuscular Volume 90.1, Mean Corpuscular Hemoglobin 28.0, Mean Corpuscular Hemoglobin Concent 31.1, Mean Platelet Volume 11.7, Neutrophils (%) (Auto) 71.8, Lymphocytes (%) (Auto) 14.2, Monocytes (%) (Auto) 8.8, Eosinophils (%) (Auto) 4.5, Basophils (%) (Auto) 0.4, Neutrophils # (Auto) 5.37, Lymphocytes # (Auto) 1.06, Monocytes # (Auto) 0.66, Eosinophils # (Auto) 0.34, Basophils # (Auto) 0.03 10/29/17 13:10 Test 10/29/17 12:38 10/29/17 13:10 10/29/17 13:15 10/29/17 14:09 Lab Scanned Report Laboratory Report/Additional White Blood Count 7.48 K/uL (4.8-10.8) Red Blood Count 4.14 M/uL (4.2-5.4) Hemoglobin 11.6 g/dL (12.0-16.0) Hematocrit 37.3 % (37-47) Mean Corpuscular Volume 90.1 fL (80-100) Mean Corpuscular Hemoglobin 28.0 pg (25-34) Mean Corpuscular Hemoglobin Concent 31.1 g/dl (32-36) Platelet Count 298 K/uL (130-400) Mean Platelet Volume 11.7 fL (7.4-10.4) Neutrophils (%) (Auto) 71.8 % Lymphocytes (%) (Auto) 14.2 % Monocytes (%) (Auto) 8.8 % Eosinophils (%) (Auto) 4.5 % Basophils (%) (Auto) 0.4 % Neutrophils # (Auto) 5.37 K/uL (1.4-6.5) Lymphocytes # (Auto) 1.06 K/uL (1.2-3.4) Monocytes # (Auto) 0.66 K/uL (0.11-0.59) Eosinophils # (Auto) 0.34 K/uL (0-0.5) Basophils # (Auto) 0.03 K/uL (0-0.2) RDW Standard Deviation 49.4 fL (36.4-46.3) RDW Coefficient of Variation 14.9 % (11.5-14.5) Immature Granulocyte % (Auto) 0.3 % Immature Granulocyte # (Auto) 0.02 K/uL (0.00-0.02) Anion Gap 7.0 mmol/L (3-11) Est Creatinine Clear Calc Drug Dose 108.5 ml/min Estimated GFR () 103.0 Estimated GFR (Non- 88.8 BUN/Creatinine Ratio 19.2 (10-20) Calcium Level 8.9 mg/dl (8.5-10.1) Total Bilirubin 0.6 mg/dl (0.2-1) Direct Bilirubin mg/dl (0-0.2) Aspartate Amino Transf (AST/SGOT) 55 U/L (15-37) Alanine Aminotransferase (ALT/SGPT) 39 U/L (12-78) Alkaline Phosphatase 186 U/L (45-117) Total Creatine Kinase 29 U/L (26-192) Creatine Kinase MB 0.6 ng/ml (0.5-3.6) Creatine Kinase MB Ratio 2.1 (0-3.0) Troponin I < 0.015 ng/ml (0-0.045) Total Protein 6.8 gm/dl (6.4-8.2) Albumin 3.1 gm/dl (3.4-5.0) Lipase 80 U/L (73-393) Chemistry Specimen Hemolysis Urine Color DK YELLOW Urine Appearance CLOUDY (CLEAR) Urine pH 5.0 (4.5-7.5) Urine Specific Anton 1.023 (1.000-1.030) Urine Protein 1+ (NEG) Urine Glucose (UA) NEG (NEG) Urine Ketones TRACE (NEG) Urine Occult Blood NEG (NEG) Urine Nitrite NEG (NEG) Urine Bilirubin NEG (NEG) Urine Urobilinogen NEG (NEG) Urine Leukocyte Esterase TRACE (NEG) Urine WBC (Auto) 5-10 /hpf (0-5) Urine RBC (Auto) 0-4 /hpf (0-4) Urine Hyaline Casts (Auto) 1-5 /lpf (0-5) Urine Epithelial Cells (Auto) >30 /lpf (0-5) Urine Bacteria (Auto) NEG (NEG) Urine Crystals CALCIUM OXALATE (NONE Urine Pathogenic Casts 0-3 GRANULAR CASTS /lpf (0) Prothrombin Time 9.8 SECONDS (9.0-12.0) Prothromb Time International Ratio 0.9 (0.9-1.1) Activated Partial Thromboplast Time 26.6 SECONDS (21.0-31.0) Partial Thromboplastin Ratio 1.0 D-Dimer 700 ug/L FEU (0-500) Laboratory results per my review. Medications Administered Medications (Trade) Dose Ordered Sig/Leonel Route Start Time Stop Time Status Last Admin Dose Admin Morphine Sulfate (MoRPHine SULFATE INJ) 4 mg Q15M PRN IV 10/29/17 13:00 10/29/17 18:30 DC 10/29/17 16:20 4 MG Ondansetron HCl (Zofran Inj) 4 mg NOW STAT IV 10/29/17 12:51 10/29/17 12:53 DC 10/29/17 12:51 4 MG Ceftriaxone Sodium (Rocephin Inj) 1 gm NOW STAT IV 10/29/17 16:17 10/29/17 16:18 DC 10/29/17 16:17 1 GM ECG Indication: chest pain Rate (beats per minute): 76 Rhythm: sinus rhythm Findings: 1st degree AV block, RBBB, other (No PVCs) Comparison ECG Date: 10/27/17 Change: no significant change Change: Patient's EKG was interpreted by me. ED Course 1247: The patient was evaluated in room C11B. A complete history and physical examination were performed. 1251: Ordered Zofran Injection 4 mg IV. 1300: Ordered Morphine Sulfate 4 mg IV. 1342: I reevaluated the patient and she is resting comfortably. 1617: Ordered Rocephin Injection 1 gm IV. 1634: Upon reevaluation, the patient is resting comfortably. I discussed the results and treatment plan with the patient. She verbalized agreement of the treatment plan. The patient was discharged home. Medical Decision Differential diagnosis: Etiologies such as cardiac ischemia, aortic dissection, pulmonary embolism, pneumonia, pneumothorax, musculoskeletal, infections, pericarditis, myocarditis , esophageal rupture, gastrointestinal, as well as others were entertained. Nursing notes reviewed. The patient's previous electronic medical records were reviewed. The patient is a 72-year-old female who I recently treated for left upper quadrant abdominal pain and left lower chest pain. The patient at that time was found have a urinary tract infection. She was started on an antibiotic as well as pain medication. The patient returns the emergency department today because of increasing symptoms and worsening pain. She also had an episode of nausea vomiting which I feel could be related to the patient's pain medication. I discussed the patient's laboratory radiographic studies with her. On this presentation she appears to have more lower chest pain and abdominal pain. I was concerned that there could have been a pulmonary embolism so a CT the chest was obtained. The patient was found have nodules in her lung on her previous visit. This CT does show multiple nodules which are felt to be consistent with a possible metastatic process. I discussed this with her as well as her significant other. She states that this is been ongoing for quite some time but I explained to her as well as her that this will require follow-up to determine where this is coming from. I discussed possible sites and recommended that she follow-up with her doctor for possible referral to a software design manager and biopsy to further evaluate the cause of these software design manager. I also related to her that this could've caused her rib fracture. The patient was encouraged to follow-up with her primary care physician as soon as possible return to the emergency department immediately symptoms change worsen or the need arises. Medication Reconcilliation Current Medication List: was personally reviewed by me Blood Pressure Screening Patient's blood pressure: Elevated blood pressure Blood pressure disposition: Elevated BP felt to be situational Impression Primary Impression: Urinary tract infection Additional Impressions: Pulmonary nodules Rib fracture Scribe Attestation The scribe's documentation has been prepared under my direction and personally reviewed by me in its entirety. I confirm that the note above accurately reflects all work, treatment, procedures, and medical decision making performed by me. Departure Information Dispostion Home / Self-Care Prescriptions Oxycodone Immediate Rel Tab (ROXICODONE IR) 5 Mg Tab 1-2 TAB PO Q4H Y for Severe Pain, #24 TAB Prov: Rajendra Francisco, DO 10/29/17 Referrals Jean Beach M.D. (PCP) Forms HOME CARE DOCUMENTATION FORM, IMPORTANT VISIT INFORMATION Patient Instructions ED Fx Rib, ED UTI Cystitis Female, My [facility] Additional Instructions Call your family doctor to schedule a follow-up appointment. Rest and avoid any strenuous activity. Continue all medications as prescribed. Return to the emergency department if symptoms worsen or change or if the need arises. Problem Qualifiers Primary Impression: Urinary tract infection Urinary tract infection type: site unspecified Hematuria presence: without hematuria Qualified Codes: N39.0 - Urinary tract infection, site not specified Additional Impressions: Rib fracture Encounter type: initial encounter Rib fracture type: single rib Fracture type: closed Laterality: left Qualified Codes: S22.32XA - Fracture of one rib, left side, initial encounter for closed fracture
[2017-10-29 13:34] LABS: BASO % 0.4 %; BASO ABS # 0.03 K/uL (0-0.2); EOS % 4.5 %; EOS ABS # 0.34 K/uL (0-0.5); HEMATOCRIT 37.3 % (37-47); HEMOGLOBIN 11.6 g/dL (12.0-16.0); IG# 0.02 K/uL (0.00-0.02); LYMPH % 14.2 %; LYMPH ABS # 1.06 K/uL (1.2-3.4); MEAN CELL VOLUME 90.1 fL (80-100); MEAN CORPUSCULAR HGB CONC 31.1 g/dl (32-36); MEAN PLATELET VOLUME 11.7 fL (7.4-10.4); MONO % 8.8 %; MONO ABS # 0.66 K/uL (0.11-0.59); NEUT % 71.8 %; NEUT ABS # 5.37 K/uL (1.4-6.5); PLATELET COUNT 298 K/uL (130-400); RED CELL DISTRIBUTION WIDTH CV 14.9 % (11.5-14.5); RED CELL DISTRIBUTION WIDTH SD 49.4 fL (36.4-46.3); WHITE BLOOD COUNT 7.48 K/uL (4.8-10.8)
[2017-10-29] MEDS: MoRPHine SULFATE 4 MG/ML 1 ML CARP\\VIAL IV PRN ×3 (13:42→16:20)
[2017-10-29 14:08] LABS: ALBUMIN 3.1 gm/dl (3.4-5.0); ALKALINE PHOSPHATASE 186 U/L (45-117); ALT/SGPT 39 U/L (12-78); AST/SGOT 55 U/L (15-37); BLOOD UREA NITROGEN 12 mg/dl (7-18); CALCIUM 8.9 mg/dl (8.5-10.1); CARBON DIOXIDE 29 mmol/L (21-32); CKMB 0.6 ng/ml (0.5-3.6); CREATININE 0.62 mg/dl (0.60-1.20); GLUCOSE 98 mg/dl (70-99); LIPASE 80 U/L (73-393); POTASSIUM 4.3 mmol/L (3.5-5.1); SODIUM 137 mmol/L (136-145); TOTAL PROTEIN 6.8 gm/dl (6.4-8.2)
[2017-10-29 14:33] LABS: INR 0.9 (0.9-1.1); PTT PATIENT 26.6 SECONDS (21.0-31.0)
[2017-10-29] MEDS ORDERED: OMEP20TA PO (14:36)
[2017-10-29] MEDS ORDERED: OPTIRAY 320 IV PRN (15:00)
[2017-10-29] MEDS ORDERED: CEFTRIAXONE SOD INJ 1 GM ADDVIAL IV STA (16:17)
--- NOTE | 2017-10-29 16:25 | DIAGNOSTIC IMAGING REPORT ---
(CHEST FOR PE) ANGIO WITH CLINICAL HISTORY: 72 years-old Female presenting with ^left CP. TECHNIQUE: Multidetector CT angiography of the chest was performed after administration of intravenous contrast. 3-D volumetric and/or maximum intensity projection (MIP) images were subsequently reconstructed for review. IV contrast: 96 mL of Optiray 320. A dose lowering technique was used consistent with the principles of ALARA (as low as reasonably achievable). COMPARISON: 02/12/2010. CT DOSE (mGy.cm): The estimated cumulative dose is 650.19 mGy.cm. FINDINGS: [employer] topogram: Cardiomegaly. Cholecystectomy clips. Pulmonary vasculature: The study is suboptimal for the assessment of the pulmonary vascular tree secondary to timing of the contrast bolus and respiratory motion artifact. Allowing for limited image quality, no central filling defect to suggest pulmonary embolus. Main pulmonary artery enlarged measuring 3.1 cm in transverse dimension. No flattening of the interventricular septum. No intracardiac filling defect. No reflux of contrast into the hepatic veins. Remaining chest: On soft tissue windows, normal thyroid and thoracic inlet. Prominent lymph node in the right supra clavicular fossa, which measures 8 mm in short axis (series 4 image 263). No axillary lymphadenopathy. Enlarged mediastinal and bilateral hilar lymph nodes. A prominent lymph node in the right paratracheal region measures 9 mm in the short axis (series 4 image 222). Hilar lymph nodes are difficult to discretely measure. Atherosclerosis of the aorta. Multichamber enlargement of the heart. Coronary artery and aortic valve calcification. No pericardial or pleural effusion. Borderline hepatic steatosis. On lung windows, Mosaic attenuation at the right upper lobe. Possible loculated fluid in the right major fissure along the superior segment of the right lower lobe. Solid 5 mm pulmonary nodule in the right upper lobe (series 4 image 160). Solid 6 mm nodule in the right middle lobe (series 4 image 139). Numerous additional solid nodules in the right lung involving all 3 lobes. Partially calcified solid nodule measuring 5 mm in the left lower lobe (series 4 image 79). Central airways patent. On bone windows, degenerative changes of the spine. Acute minimally displaced fracture of the left lateral eighth rib. IMPRESSION: 1. Multiple solid pulmonary nodules involving all 5 lobes. These are most concerning for pulmonary metastases. Correlate with an underlying malignancy. 2. Borderline enlarged bilateral hilar, mediastinal, and right supraclavicular lymphadenopathy. This is also concerning for metastatic disease. 3. Acute minimally displaced fracture of the left lateral eighth rib. 4. No evidence of pulmonary embolus. 5. Enlargement of the main pulmonary artery suggests pulmonary arterial hypertension. The report will be called/faxed according to standard departmental protocol. Electronically signed by: Jhonny Guzman M.D. 10/29/2017 4:24 PM Dictated Date/Time: 10/29/2017 4:11 PM
[2017-10-29] MEDS ORDERED: OXYC1TAB3 PO (16:35)
[2017-10-29 17:30] VITALS: BP 115/76; PULSE 75; O2SAT 98
== END 2017-10-29 17:31 | disposition home or self-care (01) ==
LOC: C.EDB 12:38 → C.EDC 17:31
DX: N39.0 Urinary tract infection, site not specified (principal); R91.8 Other nonspecific abnormal finding of lung field; Z99.81 Dependence on supplemental oxygen; S22.32XA Fracture of one rib, left side, initial encounter for closed fracture; X58.XXXA Exposure to other specified factors, initial encounter; J45.909 Unspecified asthma, uncomplicated; E11.9 Type 2 diabetes mellitus without complications; I10 Essential (primary) hypertension; Z80.9 Family history of malignant neoplasm, unspecified; Z83.3 Family history of diabetes mellitus; Z82.49 Family history of ischemic heart disease and other diseases of the circulatory system; Z79.4 Long term (current) use of insulin; Z79.899 Other long term (current) drug therapy; Z79.84 Long term (current) use of oral hypoglycemic drugs

== ENCOUNTER → 2017-12-02 | Outpatient (CLI) | payer BC ==
[~2017-12-02] MED LIST changes: -ALBUAER2 INH; -CEFD1CAP14 PO; -CYAN3INJ IM; -FLUC150T PO; +HYDR5SYP11 PO; -INSUINJ14 SC; -IPRASOL34 INH; +IPRASOL4 INH; +MAGN1CAP2 PO; -MAGN1TAB15 PO; +NVLGI/PEN SQ; +NYSTCRE11 TD; +OMEP20TA PO; +OXGN; -OXYC1TAB3 PO; -PRED1SUS3 OPL; -TELM40TA11 PO; +TELM80TA PO; +UMEC1INH INH; +VNTHFA/IN INH
--- NOTE | 2017-12-02 10:20 | DIAGNOSTIC IMAGING REPORT ---
PET/CT SKULL-THIGH HISTORY: Lymphadenopathy PULMONARY NODULE TECHNIQUE: PET/CT was performed from the base of the skull through the pelvis following the intravenous administration of 15.4 mCi of F18-FDG. Non-contrast CT imaging was performed over the same range without breath-hold for attenuation correction of PET images and anatomic correlation, but not for primary interpretation as it is not of standard diagnostic quality. CT DOSE: COMPARISON: CT chest abdomen and pelvis 10/27/2017 FINDINGS: HEAD AND NECK: There is no FDG-avid disease or significant lymphadenopathy in the imaged portions of the head and the neck. CHEST: Multiple parenchymal nodules primarily in the mid to lower lung regions bilaterally similar in distribution compared to the patient's prior CT study. The bulk of these are too small to register on PET scan is active or in active due to resolution limitations. 7 mm right upper lobe nodule shows a minimal increase in activity at 1.8. Several small additional nodules are present showing faint activity most likely secondary to their small size. Moderate increase in activity of a healing left eighth rib fracture. Focus of increased activity immediately lateral to the left scapula with no anatomic correlate. SUVs of 5.1. Moderate increase in hilar activity bilaterally appear to be a combination of atherosclerotic change as well as metabolic reactive hilar adenopathy. As a esophageal recess nodes measure up to 5.1 SUVs. Dimensions measure up to 1.2 cm. Moderate activity hilar nodes are present combine with atherosclerotic activity of the pulmonary vasculature. ABDOMEN/PELVIS: Unremarkable activity characteristics of the genitourinary tracts and liver. Unremarkable activity characteristics of the gastrointestinal tract. Increased metabolic activity of scattered nodes throughout the abdomen and pelvis and inguinal region. Nodes at the level of the renal vasculature at KUB to 6.0. Nodes measure to 1.3 cm. Nodes at the pelvic inlet show increased metabolic activity to SUVs of 3.9. These nodes slightly inferior to the aortic bifurcation measures 2 11 mm on the right and 9 mm on the left. Metabolically active nodes are identified in the iliac chains bilaterally as well as in the pelvic sidewall regions. Nodes measure from 5-11 SUV units bilaterally and measure to 1.0 cm in the right lateral pelvic sidewall regions and 1.7 cm on the left. Inguinal nodes measure to 1.4 cm in long axis measurement on the right and 1.2 cm on the left. Several anterior thigh nodes are present measuring 2 9 mm on the right and left and having increased SUV characteristics to 10 on the left and 11 on the right. Findings of bony metastatic change are noted with several small foci within the thoracic spine, lumbar spine, and at least one left rib. MUSCULOSKELETAL: Metastatic bony foci as noted IMPRESSION: 1. Diffuse increase in metabolic activity throughout renay pathology of the chest, abdomen, pelvis, including inguinal regions bilaterally and iliac chains as well as upper thigh. 2. Bilateral pulmonary nodularity the bulk of which are too small to register. Several larger nodules show mild activity. 3. Metastatic bone foci within the thoracal lumbar spine 4. The appearance is consistent with that of widespread metastatic disease The above report was generated using voice recognition software. It may contain grammatical, syntax or spelling errors. Electronically signed by: Vijay Hernadnez M.D. 12/02/2017 10:19 AM Dictated Date/Time: 12/02/2017 9:56 AM
== END | disposition home or self-care (01) ==
LOC: C.PET 07:06
PROVIDERS: ATTEND Surgery
DX: R91.1 Solitary pulmonary nodule (principal)

== ENCOUNTER → 2017-12-07 | Outpatient (CLI) | payer BC ==
--- NOTE | 2017-12-07 08:30 | DIAGNOSTIC IMAGING REPORT ---
CHEST CT SUPERDIMENSIONAL WITHOUT CONTRAST CT DOSE: 666.76 mGy.cm HISTORY: R91.1 Lung nodule seen on imaging study TECHNIQUE: Multiaxial CT images of the chest were performed without contrast. A dose lowering technique was utilized adhering to the principles of ALARA. Super dimensional imaging was also performed for preoperative evaluation. COMPARISON: Chest CTA 10/29/2017. Head CT 12/02/2017. FINDINGS: No pleural effusions. No pneumothorax. No significant change in the multiple bilateral pulmonary nodules, right greater than left. Dominant nodule within the right lower lobe posteriorly measures 8 mm. Small amount of loculated pleural fluid seen within the right major fissure, unchanged. No new pulmonary nodules identified. A few scattered calcified granulomas remain unchanged. Focal irregular density within the right upper lobe anteriorly may represent scarring and a trace amount of fluid within the minor fissure. This also remains unchanged. Healing left eighth rib fracture. No suspicious lytic or blastic osseous lesions. The visualized liver, spleen, and adrenal glands are unremarkable. No pericardial effusion. The heart is top normal in size. Normal caliber thoracic aorta. Mild calcified plaque within the thoracic aorta. The main pulmonary artery is mildly distended at 3.3 cm consistent with pulmonary arterial hypertension. No change in the borderline enlarged mediastinal lymph nodes. Mild bilateral hilar lymphadenopathy persists. IMPRESSION: 1. Overall, no significant change compared to the prior studies. 2. Multiple bilateral pulmonary nodules and borderline enlarged mediastinal and hilar lymphadenopathy persists. This is nonspecific but can be seen in the setting of metastatic disease. In addition, sarcoidosis could also have a similar appearance. Tissue sampling is recommended for further evaluation. Electronically signed by: Demar Sánchez M.D. 12/07/2017 8:28 AM Dictated Date/Time: 12/07/2017 8:15 AM
== END | disposition home or self-care (01) ==
LOC: C.CTS 07:02
PROVIDERS: ATTEND Surgery
DX: R91.1 Solitary pulmonary nodule (principal)

== ENCOUNTER → 2017-12-11 | Outpatient (CLI) | payer BC ==
[~2017-12-11] MED LIST changes: +ASPI81TA28 PO; +METH4PAK PO
[2017-12-11 12:53] LABS: HEMOGLOBIN A1C 7.5 % (4.5-5.6)
[2017-12-11 12:58] LABS: HEMATOCRIT 36.6 % (37-47); HEMOGLOBIN 11.5 g/dL (12.0-16.0)
[2017-12-11 13:01] LABS: BLOOD UREA NITROGEN 17 mg/dl (7-18); CALCIUM 8.8 mg/dl (8.5-10.1); CARBON DIOXIDE 28 mmol/L (21-32); GLUCOSE 238 mg/dl (70-99); POTASSIUM 4.5 mmol/L (3.5-5.1); SODIUM 139 mmol/L (136-145)
== END | disposition home or self-care (01) ==
LOC: C.LABBFT 08:44
PROVIDERS: ATTEND Nurse Practitioner Adult Health
DX: I10 Essential (primary) hypertension (principal); D51.0 Vitamin B12 deficiency anemia due to intrinsic factor deficiency; E11.9 Type 2 diabetes mellitus without complications; S22.39XA Fracture of one rib, unspecified side, initial encounter for closed fracture; X58.XXXA Exposure to other specified factors, initial encounter; Z79.52 Long term (current) use of systemic steroids

== ENCOUNTER 2017-12-18 05:04 | Inpatient (IN) | payer BC, OTHER ==
[2017-12-01 13:50] VITALS: BMI 40.0
[2017-12-18] VITALS (11 sets, daily range): BP systolic 125–154; BP diastolic 54–68; PULSE 78–101; TEMP 36.4–37.1; O2SAT 93–98; Ht 167.6 cm; Wt 122.0 kg
[~2017-12-18] VITALS: Ht 167.6 cm; Wt 122.0 kg
[~2017-12-18 05:04] MED LIST changes: -ASPI81TA28 PO; -METH4PAK PO
--- NOTE | 2017-12-18 06:57 | History & Physical Bridge Note ---
H&P Re-Evaluation Bridge Note: I have examined the patient, reviewed the History & Physical and in the interval since the performance of the History & Physical I have noted the following changes of clinical significance: No changes noted
[2017-12-18] MEDS ORDERED: FENTANYL CITRATE INJ 50 MCG/1 ML 2 ML VIAL ONE ×3 (06:59→09:09)
[2017-12-18] MEDS ORDERED: MIDAZOLAM HCL 1 MG/ML 2ML VIAL ONE (06:59)
[2017-12-18] MEDS ORDERED: ALBUT/IPRATROP 3MG/0.5MG NEB 3 ML VIAL INH ONE (07:00)
--- NOTE | 2017-12-18 07:06 | Discharge Instructions ---
Discharge Instructions Date of Service Dec 18, 2017. Visit Reason for Visit: Lung Nodules, Type 2 Diabetes Discharge Discharge Diagnosis / Problem: Lung Nodules Discharge Goals Goal(s): Learn about illness Activity Recommendations Activity Limitations: resume your previous activity (in 24 hours) Anesthesia . Post Anesthesia Instructions: If you have had General Anesthesia or IV Sedation: * Do not drive today. * Resume driving when surgeon permits. * Do not make important decisions or sign legal documents today. * Call surgeon for: 1. Temperature elevations greater than 101 degrees F. 2. Uncontrollable pain. 3. Excessive bleeding. 4. Persistent nausea and vomiting. 5. Medication intolerance (nausea, vomiting or rash). * For nausea and vomiting use only clear liquids such as: tea, soda, bouillon until nausea subsides, then gradually increase diet as tolerated. * If you have any concerns or questions, call your surgeon's office. If physician is unavailable and it is an emergency, call 911 or go to the nearest emergency room. . Instructions / Follow-Up Instructions / Follow-Up 1. Keep your scheduled appointment with Dr. Churchill on December 24 @ 9:30 am. 2. You may cough up some blood. Call physician if excessive amount noted. Diet Recommendations Recommended Home Diet: resume previous diet Pending Studies Studies pending at discharge: no Medical Emergencies . Who to Call and When: Medical Emergencies: If at any time you feel your situation is an emergency, please call 911 immediately. . Non-Emergent Contact Non-Emergency issues call your: Surgeon Call Non-Emergent contact if: you have a fever, your pain is not controlled . . "Provider Documentation" section prepared by Yury Sheikh. .
[2017-12-18] MEDS ORDERED: METHYLENE BLUE 0.5% 10 ML VIAL ONE (07:09)
[2017-12-18] MEDS ORDERED: ALBUT/IPRATROP 3MG/0.5MG NEB 3 ML VIAL ONE (07:12)
[2017-12-18] MEDS ORDERED: ASPI81TA28 PO (07:22)
[2017-12-18] MEDS: LACTATED RINGER'S 1000ML 1,000 ML IV SCH ×2 (07:28→11:55)
[2017-12-18] MEDS ORDERED: ONDANSETRON INJ 2 MG/ML 2 ML VIAL IV PRN (07:30)
[2017-12-18] MEDS ORDERED: EpHEDrine SULFATE INJ 50 MG/ML AMP IV PRN (07:30)
[2017-12-18] MEDS ORDERED: MEPERIDINE HCL 25 MG/ML CARP IV PRN (07:30)
[2017-12-18] MEDS ORDERED: FENTANYL CITRATE INJ 50 MCG/1 ML 2 ML VIAL IV PRN (07:30)
[2017-12-18] MEDS ORDERED: NALOXONE HCL 0.4 MG/1 ML VIAL/CARP IV PRN (07:30)
[2017-12-18] MEDS ORDERED: FLUMAZENIL 0.1 MG/1 ML 10 ML VIAL IV PRN (07:30)
[2017-12-18] MEDS ORDERED: ATROPINE SULFATE 0.1 MG/ML 5ML SYR IV PRN (07:30)
[2017-12-18] MEDS ORDERED: LABETALOL HCL IV 5 MG/ML 20ML IV PRN (07:30)
[2017-12-18] MEDS ORDERED: HYDROmorphone INJ 2 MG/ML SYR/VIAL IV PRN (07:30)
[2017-12-18] MEDS ORDERED: PHENYLEPHRINE 100MCG/ML 5ML SYR IV PRN (07:30)
[2017-12-18] MEDS ORDERED: HYDROmorphone INJ 2 MG/ML SYR/VIAL ONE ×2 (08:02→09:09)
[2017-12-18] MEDS ORDERED: SUCCINYLCHOLINE CHLORIDE 20 MG/ML 10 ML VIAL IV ONE (08:10)
[2017-12-18] MEDS ORDERED: PROPOFOL IV EMULSION 10 MG/ML 20 ML VIAL IV ONE (08:10)
[2017-12-18] MEDS ORDERED: LIDOCAINE HCL 2% 2 ML VIAL (20MG/ML) ONE (08:10)
[2017-12-18] MEDS ORDERED: ONDANSETRON INJ 2 MG/ML 2 ML VIAL ONE ×2 (08:10→09:27)
[2017-12-18] MEDS ORDERED: ROCURONIUM BROMIDE 10 MG/ML 5 ML VIAL IV ONE (08:10)
[2017-12-18] MEDS ORDERED: DEXAMETHASONE SOD INJ 4 MG/ML VIAL ONE (08:10)
--- NOTE | 2017-12-18 09:12 | [facility] Post Operative Brief Note ---
Immediate Operative Summary Operative Date Dec 18, 2017. Pre-Operative Diagnosis Multiple lung nodules mediastinal lymphadenopathy Post-Operative Diagnosis same Procedure(s) Performed EBUS ENB Surgeon Dr Churchill Funeral Director/Embalmer/Owner Surgeon(s) Leroy Estimated Blood Loss 5 cc's Findings Consistent with Post-Op Diagnosis Specimens All specimens handled by lab and respiratory Drains None Anesthesia Type General Complication(s) none Disposition Disposition: Recovery Room / PACU
[2017-12-18] MEDS ORDERED: GLYCOPYRROLATE INJ 0.2 MG/ML VIAL ONE (09:27)
[2017-12-18] MEDS ORDERED: NEOSTIGMINE METHYLSULFATE 5 MG/5 ML SYR ONE (09:27)
[2017-12-18] MEDS ORDERED: ESMOLOL HCL 10 MG/ML 10 ML VIAL ONE (10:57)
--- NOTE | 2017-12-18 10:58 | DIAGNOSTIC IMAGING REPORT ---
CHEST ONE VIEW PORTABLE CLINICAL HISTORY: FOB tube position COMPARISON STUDY: 10/29/2017 FINDINGS: Endotracheal tube 3.8 cm above the abe. Atelectasis right midlung. Mild emphysematous change. No focal infiltrate. Diaphragms smooth. IMPRESSION: Endotracheal tube 3.8 cm above the abe. Atelectasis right midlung. No evidence of pneumothorax. The above report was generated using voice recognition software. It may contain grammatical, syntax or spelling errors. Electronically signed by: Vijay Hernandez M.D. 12/18/2017 10:57 AM Dictated Date/Time: 12/18/2017 10:56 AM
--- NOTE | 2017-12-18 11:11 | OPERATIVE REPORT ---
DATE OF OPERATION: 12/18/2017 PREOPERATIVE DIAGNOSIS: Pulmonary nodules with mediastinal hypermetabolic adenopathy. POSTOPERATIVE DIAGNOSIS: Same. PROCEDURE: 1. Endobronchial ultrasound with biopsy. 2. Electromagnetic navigational bronchoscopy with biopsy. SURGEON: Miguel Angel Churchill MD SIGN DESIGNER: Jean Harper, respiratory therapy. ANESTHESIA: General anesthesia endotracheal intubation. INDICATION FOR PROCEDURE AND FINDINGS: Cady Resendiz is a 72-year-old female who sent to the office with a highly suspicious nodules in both lungs. They were rounded and appeared to be metastatic. She also had some hypermetabolic activity, but her mediastinal lymph nodes which were moderately enlarged were hypermetabolic. I felt that an endobronchial ultrasound with biopsy plus and electromagnetic navigation bronchoscopy would be advisable. On 12/18/2017, the patient underwent uncomplicated endobronchial ultrasound with biopsy as well as electromagnetic navigational bronchoscopy. I was disappointed. The lymph nodes were a bit enlarged, but I visualized them well; however, I did 20 separate needle aspirations in the right level 2, right level 4, right level 10 and level 7 and really we did not even see lymphocytes. I then biopsied the 2 of the nodules on the right and again we really did not see any evidence of malignant disease. I explained to the patient that this was possible preoperatively. She tolerated it well, was awakened in the room. PROCEDURE: The patient brought to the operating room and laid in supine position. General anesthesia induced and intubation was performed. After appropriate timeout had been called and antibiotics had been given, the endobronchial ultrasound scope was placed. I went down and saw no abnormal endobronchial lesions. It did appear to me, however, that she had some heaping up of the upper lobe bronchus. At any rate, I was able to visualize the right level 10 nodes well and biopsied these 10 separate occasions and we did not even see lymphocytes. By ultrasound, we were right in the middle of these nodes. I then biopsied level 7 and again appeared to we were right in it; however, we got no lymphocytes whatsoever. I biopsied the right level 4, as well as a right level 2. We did see a few lymphocytes in the right level 2. These nodes were not very large. I irrigated out the airway and sent for culture and cytology. I then switched over to a regular fiberoptic bronchoscope. I placed the navigational probe and we registered all of the airways. I then went down to the right lower lobe and came upon the lesion and did brushings as a needle biopsy, really did not see evidence of malignancy. On ultrasound, appeared we were in this nodule. We then switched over to the upper lobe and again I came down upon this lung mass; however, it was small and peripheral. I did do brushings and a needle biopsy. The rapid on-site evaluation did not show any abnormalities. I then did a washing of the right upper lobe bronchus alone. I slowly withdrew the bronchoscope and really had no abnormalities noted and no bleeding. The patient tolerated it well. She was transported to postanesthesia care unit in stable condition. I attest to the content of the Intraoperative Record and any orders documented therein. Any exception s are noted below.
--- NOTE | 2017-12-18 11:12 | Anesthesiology Progress Note ---
Anesthesia Post Op Note Date & Time Dec 18, 2017 at 10:52 Vital Signs Pain Intensity: 0 Vital Signs Past 12 Hours Date Time Temp Pulse Resp B/P (MAP) Pulse Ox O2 Delivery O2 Flow Rate FiO2 12/18/17 07:16 87 16 93 Room Air 12/18/17 05:44 37.1 92 20 140/64 (89) 94 Notes Mental Status: alert / awake / arousable Pt Amnestic to Procedure: Yes Nausea / Vomiting: adequately controlled Pain: adequately controlled Airway Patency, RR, SpO2: see Notes BP & HR: stable & adequate Hydration State: stable & adequate Anesthetic Complications: no major complications apparent The patient is a 72 y/o female with poor pulmonary function who underwent a navigational bronchoscopy. Preoperatively the patient was noted to have wheezing. She was given a Duoneb which slightly improved her function. The patient was also given IV Decadron. A special notation on the consent form was signed by the patient understanding that there was a chance of prolonged postoperative intubation due to her poor pulmonary function. The patient was easily intubated with a Glidescope. During the procedure, the patient was noted to have high peak pressures by the JUNK DEALER and was treated with opioids and increased volatile anesthetic. Her SpO2 remained in the 90s throughout the surgery. After the procedure was finished I was called back to the OR. The patient was awake, had good strength, and was following commands with no end tidal volatile anesthetic, however her ETCO2 was in the 70s and her tidal volumes were under 50 ml while spontaneously ventilating. Her SpO2 remained 100 when her ventilation was supported. The patient was kept intubated and transported on monitors with an Ambu bag to the PACU where she was placed on a ventilator and had ETCO2 monitoring. The patient's vent settings were adjusted between PSV and PCV. The patient had slightly improved tidal volumes with PSV [address] Lara came over to evaluate the patient along with Dr. Churchill. A CXR was obtained which showed some atelectasis and emphysema but no pneumothorax. I signed the patient out to Dr. Lara as she will remain intubated and be transferred to his care in the ICU. Once in the ICU, he will try to extubate her and attempt BiPAP with the possibility that she may require emergent reintubation. Her postop BSG was 193.
[2017-12-18] MEDS ORDERED: ICU PROTOCOL FOR HYPERGLYCEMIA PRN (11:15)
[2017-12-18] MEDS: ALBUT/IPRATROP 3MG/0.5MG NEB 3 ML VIAL INH PRN ×3 (11:30→22:59)
--- NOTE | 2017-12-18 11:39 | Critical Care Consultation ---
"Critical Care Consultation Date of Consultation: Dec 18, 2017. Attending Physician: Miguel Angel Churchill MD Reason for Consultation: Postoperative respiratory insufficiency History of Present Illness History is obtained from anesthesia provider as well as medical records secondary to patient being intubated Of note I attempted to access all prescription medical record, I was unable to visualize the patient's chart secondary to error message, dialogbox listed error handler. Patient is 72-year-old female with past medical history of type 2 diabetes, hypertension, reported COPD, obesity BMI 40, and pulmonary nodules. Patient underwent navigational bronchoscopy by Dr. Churchill for multiple pulmonary nodules as well as a positive PET scan concerning for malignant process. After the procedure it was reported to me that the patient was able to follow commands was attempted to be liberated from the ventilator however she had poor tidal volumes. She was also given IV Dilaudid. Patient did become apneic at some point. During my evaluation the patient is alert, able to follow complex commands and desires the tube be removed. She was switched from pressure control ventilation secondary to high peak pressures to pressure support ventilation with a PEEP of 15 and pressure support of 15, the patient was able to maintain minute ventilation was not Certainly her RSBI is less than 105. Chest x-ray was performed it was reviewed both by myself is Dr. Churchill, there is no evidence of pneumothorax at this time. Patient was transported to the ICU, she was still able to follow complex commands, not apneic and she was successfully extubated and transitioned to noninvasive ventilator inspiratory pressure of 15 expiratory pressure of 10 and was feeling much improved. Past Medical/Surgical History Pulmonary nodules Diabetes mellitus on long-term insulin Hypertension Status post bronchoscopy Family History Cancer Diabetes mellitus Heart disease Hypertension Lung disease Social History Smoking Status: Never Smoker Marital Status: Housing Status: lives with family Occupation Status: employed Allergies Coded Allergies: No Known Allergies (Verified , 12/18/17) Home Medications Scheduled Amlodipine Besylate (Norvasc), 5 MG PO QAM Aspirin (Aspirin Ec), 81 MG PO DAILY Fluticasone Prop/Salmeterol (Advair Diskus 500/50 60 Dose), 1 PUFF INH BID Home O2 Therapy (Oxygen), 2 LITERS NA PRN Insulin Aspart (Novolog Flexpen), 14 UNITS SQ TIDM Insulin Glargine (Lantus), 45-50 UNITS SC HS Magnesium Oxide (Mg Supplement (Magnesium), Unknown Dose PO BID Metformin Hcl (Glucophage), 1,000 MG PO QAM Multiple Vitamins W/ Minerals (Preservision Areds), 1 CAP PO BID Nystatin/Triamcinolone (Mycogen || ), 1 APPLN TD UD Omeprazole (Omeprazole), 20 MG PO HS Polyethylene Glycol 3350 (Bulk (Polyethylene Glycol 3350), 0.5 DOSE PO QAM Ropinirole (Requip), 1.5 MG PO HS Simvastatin (Zocor), 40 MG PO QPM Telmisartan (Micardis), 80 MG PO QAM Umeclidinium [place] (Incruse Ellipta), 1 PUFF INH QAM Scheduled PRN Albuterol Hfa (Ventolin Hfa), 2 PUFFS INH Q2H PRN for Shortness of Breath Hydrocodone W/ Homatropine (Hycodan 5/1.5MG 5 Ml), 5 ML PO Q4H PRN for Cough Ipratropium-Albuterol (Duoneb), 1 TREATMENT INH Q4H PRN for Shortness of Breath Current Inpatient Medications Current Inpatient Medications Medications (Trade) Dose Ordered Sig/Leonel Route Start Time Stop Time Status Last Admin Dose Admin Lactated Ringer's 1,000 ml @ 15 mls/hr Q24H IV 12/18/17 06:00 12/19/17 05:59 12/18/17 07:28 15 MLS/HR Hydromorphone HCl (Dilaudid Inj) 0.5 mg Q5M PRN IV 12/18/17 07:30 12/18/17 12:30 Fentanyl Citrate (Fentanyl Inj) 25 mcg Q5M PRN IV 12/18/17 07:30 12/18/17 12:30 Naloxone HCl (Narcan Inj) 0.2 mg Q2M PRN IV 12/18/17 07:30 12/18/17 12:30 Meperidine HCl (Demerol Inj) 12.5 mg Q5M PRN IV 12/18/17 07:30 12/18/17 12:30 Ondansetron HCl (Zofran Inj) 4 mg ONE PRN IV 12/18/17 07:30 12/18/17 12:30 Flumazenil (Romazicon Inj) 0.2 mg Q2M PRN IV 12/18/17 07:30 12/18/17 12:30 Labetalol HCl (Normodyne IV) 5 mg Q5M PRN IV 12/18/17 07:30 12/18/17 12:30 Ephedrine Sulfate (EpHEDrine SULFATE INJ) 5 mg Q5M PRN IV 12/18/17 07:30 12/18/17 12:30 Atropine Sulfate (Atropine Sulfate 0.1mg/ml Inj) 0.5 mg Q1M PRN IV 12/18/17 07:30 12/18/17 12:30 Phenylephrine HCl (Rolando-Synephrine 500MCG/5ML Syr) 100 mcg Q5M PRN IV 12/18/17 07:30 12/18/17 12:30 Review of Systems Unable to obtain secondary to patient being intubated Physical Exam Date Time Temp Pulse Resp B/P (MAP) Pulse Ox O2 Delivery O2 Flow Rate FiO2 12/18/17 10:45 50 12/18/17 10:25 50 12/18/17 10:14 36.6 93 20 225/110 97 Ambu-Bag 15 12/18/17 07:16 87 16 93 Room Air 12/18/17 05:44 37.1 92 20 140/64 (89) 94 General: Alert. nontoxic. Following complex commands, able to give thumbs up with left hand show 2 fingers on right hand Skin: Warm, dry, Head: Atraumatic Ears, nose, mouth and throat: airway patent Cardiovascular: Normal peripheral perfusion Respiratory: no respiratory distress, no evidence of retention on waveform analysis, rhonchi in right lung field greater than left Gastrointestinal: Non distended Musculoskeletal: No deformity Laboratory Results Last 24 Hours Test 12/18/17 10:56 Bedside Glucose 197 mg/dl Assessment & Plan Patient critically ill due to postoperative respiratory insufficiency and at high risk requiring intubation secondary to hypercarbic respiratory failure Impression #1 postoperative respiratory insufficiency 2. Pulmonary nodules 3. Diabetes mellitus on long-acting insulin 4. Hypertension Plan: #1 noninvasive mechanical ventilation as bridge postoperative 2. Continue home meds 3. Duo nebs every 4 hours as needed 4. Follow-up cytology and pathology results as outpatient 5. Avoid narcotic medication immediately postop to prevent narcosis I have personally spent 35 minutes of critical care time in the direct management of this patient. This is a life/limb threatening event. This includes time spent evaluating patient, direct bedside care, chart review, placing orders, interpretation of diagnostic studies, discussion with consultants, patient, and/or family members regarding treatment decisions, as well as other required patient management activities. This time is exclusive of all separately billable procedures, and teaching time and separate from and in addition to any other critical care service time."
[2017-12-18] MEDS ORDERED: HYDROCODONE/HOMATROPINE SYRUP 5MG/1.5MG 5ML UDP PO PRN (11:45)
[2017-12-18] MEDS ORDERED: ALBUTEROL HFA 8 GM INHALER INH PRN (11:45)
[2017-12-18] MEDS ORDERED: GLUCOSE 40% GEL 15 GM TUBE PO PRN (12:15)
[2017-12-18] MEDS ORDERED: GLUCAGON FOR INJ 1 MG VIAL SQ PRN (12:15)
[2017-12-18] MEDS ORDERED: GLUCOSE 10 TABS/TUBE PO PRN (12:15)
[2017-12-18] MEDS ORDERED: DEXTROSE 50% 50 ML SYR IV PRN (12:15)
--- NOTE | 2017-12-18 12:18 | History and Physical ---
"History & Physical Date & Time of Service: Dec 18, 2017 at 12:14 Chief Complaint: Respiratory Failure Primary Care Physician: Jean Beach M.D. History of Present Illness Source: patient, family Ms. Resendiz is a 72 y/o female COPD, Pernicious Anemia, T2DM, HTN, Pulmonary Nodules, REJI on night 2 L O2, and Morbid Obesity (BMI 40) who is a direct admit from the PACU due to acute respiratory failure and delay extubation after surgery. Patient is S/P endobronchial U/S with biopsy and electromagnetic navigational bronchoscopy with biopsy taking approx. 20 samples. HPI largely obtained from as patient is currently extubated but with BiPAP placed and having difficulty answering questions. She has known small nodules with outpatient PET concerning for a malignant process. reports that she has frequent exacerbations of her lung disease and with a recent prednisone taper that finished on or Thursday of last week. He states that he utilizes her nebulizers daily nearly every 4 hours even when not having an exacerbation. He states that she does utilize 2 L NC at night only unless having an exacerbation and she will intermittently use this during the day. Review of outpatient records show PFTs from January 2017 with severe obstructive airway disease with minimal improvement with bronchodilators. Patient is a non-smoker but does report occupational hazards in the past working at a [employer]. Past Medical/Surgical History Medical Problems: (1) Abnormal EKG (2) Asthma (3) DM (diabetes mellitus) (4) HTN (hypertension) (5) Left flank pain (6) Near syncope (7) Near syncope (8) Pulmonary nodules (9) Respiratory failure (10) Rib fracture (11) Urinary tract infection (12) Urinary tract infection Family History Cancer Diabetes mellitus Heart disease Hypertension Lung disease Social History Smoking Status: Never Smoker Smokeless Tobacco Use: No Alcohol Use: none Drug Use: none Marital Status: Housing status: lives with significant other Occupational Status: employed Immunizations History of Influenza Vaccine: N/A History of Tetanus Vaccine?: Yes Tetanus Immunization Date: May 30, 2012 History of Pneumococcal: Yes Pneumococcal Date: May 30, 2012 History of Hepatitis B Vaccine: No Allergies Coded Allergies: No Known Allergies (Verified , 12/18/17) Home Medications Scheduled Amlodipine Besylate (Norvasc), 5 MG PO QAM Aspirin (Aspirin Ec), 81 MG PO DAILY Fluticasone Prop/Salmeterol (Advair Diskus 500/50 60 Dose), 1 PUFF INH BID Home O2 Therapy (Oxygen), 2 LITERS NA PRN Insulin Aspart (Novolog Flexpen), 14 UNITS SQ TIDM Insulin Glargine (Lantus), 45-50 UNITS SC HS Magnesium Oxide (Mg Supplement (Magnesium), Unknown Dose PO BID Metformin Hcl (Glucophage), 1,000 MG PO QAM Multiple Vitamins W/ Minerals (Preservision Areds), 1 CAP PO BID Nystatin/Triamcinolone (Mycogen || ), 1 APPLN TD UD Omeprazole (Omeprazole), 20 MG PO HS Polyethylene Glycol 3350 (Bulk (Polyethylene Glycol 3350), 0.5 DOSE PO QAM Ropinirole (Requip), 1.5 MG PO HS Simvastatin (Zocor), 40 MG PO QPM Telmisartan (Micardis), 80 MG PO QAM Umeclidinium [place] (Incruse Ellipta), 1 PUFF INH QAM Scheduled PRN Albuterol Hfa (Ventolin Hfa), 2 PUFFS INH Q2H PRN for Shortness of Breath Hydrocodone W/ Homatropine (Hycodan 5/1.5MG 5 Ml), 5 ML PO Q4H PRN for Cough Ipratropium-Albuterol (Duoneb), 1 TREATMENT INH Q4H PRN for Shortness of Breath Review of Systems Constitutional: No fever, No chills ENT: No nasal symptoms, No sore throat Respiratory: + cough, + shortness of breath Cardiovascular: No chest pain Abdomen: No pain, No nausea, No vomiting, No diarrhea, No constipation Musculoskeletal: No swelling, No calf pain Genitourinary - Female: No dysuria Integumentary: No rash Physical Exam Vital Signs Date Time Temp Pulse Resp B/P (MAP) Pulse Ox O2 Delivery O2 Flow Rate FiO2 12/18/17 11:10 36.1 75 18 140/77 (115) 94 CPAP 50 Mechanical Ventilator 12/18/17 11:00 73 17 139/73 (103) 94 CPAP 50 Mechanical Ventilator 12/18/17 10:50 71 17 122/74 (102) 94 Mechanical Ventilator 50 12/18/17 10:45 50 12/18/17 10:40 65 20 98/60 (74) 98 Mechanical Ventilator 50 12/18/17 10:30 65 20 84/46 (61) 98 Mechanical Ventilator 50 12/18/17 10:25 50 12/18/17 10:20 65 14 155/169 (96) 89 Mechanical Ventilator 50 12/18/17 10:14 36.6 93 20 225/110 97 Ambu-Bag 15 12/18/17 07:16 87 16 93 Room Air 12/18/17 05:44 37.1 92 20 140/64 (89) 94 General Appearance: WD/WN, + mild distress (respiratory distress) Head: normocephalic, atraumatic Eyes: sclerae normal ENT: hearing grossly normal Neck: supple, no JVD, trachea midline Respiratory/Chest: + respiratory distress (mild), + rhonchi (diffuse) Cardiovascular: regular rate, rhythm, no gallop, no murmur Abdomen/GI: normal bowel sounds, non tender, soft Extremities/Musculoskelatal: no calf tenderness, no pedal edema Neurologic/Psych: alert Skin: + pallor (mild) Diagnostics Laboratory Results Results Past 24 Hours Test 12/18/17 05:36 12/18/17 10:56 Range/Units Bedside Glucose 122 197 70-90 mg/dl Microbiology Results 12/18/17 MRSA DNA Surveillance Screen, Received Pending 12/18/17 Fungal Smear, Ordered Pending 12/18/17 Fungal Culture, Ordered Pending 12/18/17 Acid Fast Stain, Ordered Pending 12/18/17 Mycobacterial Culture, Ordered Pending 12/18/17 Gram Stain, Ordered Pending 12/18/17 Bronchoalveolar Lavage Culture, Ordered Pending 12/18/17 Fungal Smear, Ordered Pending 12/18/17 Fungal Culture, Ordered Pending 12/18/17 Acid Fast Stain, Ordered Pending 12/18/17 Mycobacterial Culture, Ordered Pending 12/18/17 Gram Stain, Yair Batch Pending 12/18/17 Bronchoalveolar Lavage Culture, Yair Batch Pending 12/18/17 Fungal Smear, Received Pending 12/18/17 Fungal Culture, Received Pending 12/18/17 Acid Fast Stain, Received Pending 12/18/17 Mycobacterial Culture, Received Pending 12/18/17 Gram Stain, Received Pending 12/18/17 Bronchoalveolar Lavage Culture, Received Pending 12/18/17 Fungal Smear, Yair Batch Pending 12/18/17 Fungal Culture, Yair Batch Pending 12/18/17 Acid Fast Stain, Yair Batch Pending 12/18/17 Mycobacterial Culture, Yair Batch Pending 12/18/17 Gram Stain, Yair Batch Pending 12/18/17 Bacterial Culture, Yair Batch Pending 12/18/17 Gram Stain, Received Pending 12/18/17 Bacterial Culture, Received Pending 12/18/17 Fungal Smear, Received Pending 12/18/17 Fungal Culture, Received Pending 12/18/17 Acid Fast Stain, Received Pending 12/18/17 Mycobacterial Culture, Received Pending Diagnostic Radiology CHEST ONE VIEW PORTABLE FINDINGS: Endotracheal tube 3.8 cm above the abe. Atelectasis right midlung. Mild emphysematous change. No focal infiltrate. Diaphragms smooth. IMPRESSION: Endotracheal tube 3.8 cm above the abe. Atelectasis right midlung. No evidence of pneumothorax. Impression Assessment and Plan Ms. Resendiz is a 72 y/o female COPD, Pernicious Anemia, T2DM, HTN, Pulmonary Nodules, REJI on night 2 L O2, and Morbid Obesity (BMI 40) who is a direct admit from the PACU due to acute respiratory failure and delay extubation after surgery. Patient is S/P endobronchial U/S with biopsy and electromagnetic navigational bronchoscopy with biopsy taking approx. 20 samples. Post-Operative Respiratory Insufficiency: S/P Bx by Dr. Churchill - Likely multifactorial including known COPD, REJI, obesity hypoventilation...in the setting of anesthesia - Patient is currently extubated and and on BiPAP - appreciate ICU management of wean to baseline RA -- Patient does utilize 2 L NC at night of REJI and once fully weaned for NIV can instute this - Duonebs and Ventolin PRN; Advair BID - Intensivists consulted - appreciate assistance with BiPAP wean T2DM: - Hold Metformin and cover with Lantus and fixed meal dosing - adjust pending oral intake HTN: - Norvasc 5 mg daily and Telmisartan 80 mg daily HLD: - Simvastatin 40 mg daily Disposition: - Acutely ill in ICU Critical care time of 35 minutes including chart review, intervention, review of studies, assessment, and discussion with patient and family. ATTENDING PHYSICIAN ATTESTATION Pt was seen and examined by Omayra Woods PA-C and Armond Fisher MD. She is significant medical history which includes COPD, REJI on nocturnal oxygen at 2 liters. Ms. Wallace Resendiz came to [facility] for endobronchial U/S with biopsy and electromagnetic navigational bronchoscopy under general anestheia, which was performed by CT surgery. After procedure, she could not be successfully weaned off of mechanical ventilation. Otherwise, patient was afebrile and hemodynamically stable. Medical ICU was consulted and patient was moved to the Unit. She was successful extubated and placed on noninvasive ventilation. Medications have been restarted. We anticipate D/c tomorrow morning. Resuscitation Status VTE Prophylaxis Will order VTE Prophylaxis: Yes"
[2017-12-18] MEDS ORDERED: PHARMACY GLYCEMIC MGMT CONSULT PRN (13:00)
[2017-12-18] MEDS ORDERED: INSULIN GLARGINE SOLOSTAR 100 UNITS/ML 3 ML PEN SC ONE ×3 (13:30→15:30)
[2017-12-18] MEDS: INSULIN ASPART 100 UNITS/ML 3 ML PEN SQ SCH ×4 (13:48→23:36)
--- NOTE | 2017-12-18 15:05 | Pharmacy Progress Note ---
Glycemic Control Intl Consult Date of Service Dec 18, 2017. Scope Glycemic Pharmacist consulted by Dr Lara on 12/18 for glycemic control and to write orders per [facility] inpatient glycemic control protocol Objective Weight (Kilograms): 122.000 Accuchecks BSG (last 24hrs): Test 12/18/17 05:36 12/18/17 10:56 Bedside Glucose 122 mg/dl (70-90) 197 mg/dl (70-90) Recent Pertinent Medications Outpatient Anti-diabetic Regimen: * Lantus 45-50 units HS * Novolog 14 units TIDM * A1c = 7.5 % 12/11/17 Risk Factors for Insulin Resistance: * Steroids: Dexamethasone 8 mg IV x1 intra-op * Recent Surgery: POD 0 s/p bronch Assessment & Plan ASSESSMENT: * 72 yo F admitted to ICU s/p bronch on 12/18 2nd respiratory depression in PACU. Pt extubated successfully on arrival to ICU. * Anticipate insulin resistance 2nd steroids administered in OR - effects may persist x days due to prolonged duration of dexamethasone * Patient received reduced dose of home Lantus yesterday evening in anticipation of procedure (40 units) per med rec * Will give additional small dose Lantus now 2nd BSG > 180 mg/dL. Hesitant to be too aggressive with dose as pt not yet ordered diet * Additional Lantus this PM per BSG - up to full daily dose weight-based severe stress * Will order weight-based severe stress Novolog ACHS with 2 overnight checks PLAN FOR INPATIENT GLYCEMIC CONTROL: * Basal insulin with LANTUS 10 units SQ x1 now then qHS based on BSG * 20 units for BSG < 100 mg/dL * 40 units for BSG 100-140 mg/dL * 50 units for BSG 140-180 mg/dL * 60 units for BSG greater than 180 mg/dL * Correctional Insulin with NOVOLOG / per scale ACHS plus 2 overnight checks * Goal Range: Low 140 mg/dL - High 180 mg/dL * Correction Factor: 15 mg/dL/unit * Nutritional / Prandial insulin per carb ratio of 1 unit per 5 grams CHO consumed * Please note that the plan above was derived based on current level of insulin resistance and hospital stress. These recommendations are appropriate for inpatient admission only. Plan of care upon discharge will need to be reassessed to avoid potential outpatient hypo/hyperglycemia. Thank you.
--- NOTE | 2017-12-18 15:13 | Critical Care Progress Note ---
Critical Care Progress Note Date of Service Dec 18, 2017. Critical Care Progress Note Subjective: No complaints, mild soreness with coughing mild sore throat. Objective: Vital signs reviewed, tolerating 2 L nasal cannula at baseline patient has been extubated for 3 hours and has been off the noninvasive ventilator. Plan: I discussed the case with Dr. Churchill, the patient is comfortable maintaining her saturations breathing well no evidence of CO2 retention, no evidence of COPD exacerbation stable for downgrade to med surgical unit.
[2017-12-18] MEDS: FLUTICASONE/SALMETEROL (ADVAIR) 500/50 INH 14 PUFF INH SCH (20:48)
[2017-12-18] MEDS: INSULIN GLARGINE SOLOSTAR 100 UNITS/ML 3 ML PEN SC SCH (20:52)
[2017-12-18] MEDS ORDERED: INSULIN GLARGINE SOLOSTAR 100 UNITS/ML 3 ML PEN SC SCH (21:00)
[2017-12-18] MEDS ORDERED: SIMVASTATIN 20 MG TAB PO SCH (21:00)
[2017-12-18] MEDS ORDERED: ROPINIROLE HCL 1 MG TAB PO SCH (21:00)
[2017-12-18] MEDS ORDERED: SIMVASTATIN 40 MG TAB PO SCH (21:00)
[2017-12-19 00:32] VITALS: BP 116/57; PULSE 83; TEMP 36.7; O2SAT 96
[2017-12-19] MEDS: ALBUT/IPRATROP 3MG/0.5MG NEB 3 ML VIAL INH PRN (03:19)
[2017-12-19 03:20] VITALS: PULSE 68; O2SAT 93
[2017-12-19] MEDS: INSULIN ASPART 100 UNITS/ML 3 ML PEN SQ SCH ×2 (04:00→08:01)
[2017-12-19 07:20] VITALS: BP 130/77; PULSE 65; TEMP 36.5; O2SAT 94
[2017-12-19 07:21] VITALS: BP 128/62; PULSE 83; TEMP 36.8; O2SAT 96
[2017-12-19] MEDS: FLUTICASONE/SALMETEROL (ADVAIR) 500/50 INH 14 PUFF INH SCH (07:55)
[2017-12-19] MEDS: INSULIN GLARGINE SOLOSTAR 100 UNITS/ML 3 ML PEN SC SCH (08:01)
[2017-12-19] MEDS ORDERED: METH4PAK PO (08:57)
[2017-12-19] MEDS ORDERED: AMLODIPINE BESYLATE 5 MG TAB PO SCH (09:00)
[2017-12-19] MEDS ORDERED: TELMISARTAN 40 MG TAB PO SCH (09:00)
[2017-12-19] MEDS ORDERED: ASPIRIN 81 MG ECTAB PO SCH (09:00)
--- NOTE | 2017-12-19 09:09 | Discharge Summary ---
"Discharge Summary Date of Service Dec 19, 2017. Discharge Summary Admission Date: Dec 18, 2017 at 11:14 Discharge Date: Dec 19, 2017 Discharge Disposition: Home Principal Diagnosis: Post-operative respiratory insufficiency Problems/Secondary Diagnoses: COPD with chronic hypoxic respiratory failure Pernicious Anemia T2DM, on intermediate card tender insulin, with hyperglycemia HTN Pulmonary Nodules REJI on night 2 L O2 Morbid Obesity (BMI 43) HLD Immunizations: Have You Had Influenza Vaccine: N/A History of Tetanus Vaccine?: Yes Tetanus Immunization Date: May 30, 2012 History of Pneumococcal: Yes Pneumococcal Date: May 30, 2012 History of Hepatitis B Vaccine: No Procedures: EBUS and ENB with biopsies Chest xrays Consultations: Critical Care Medicine Thoracic Surgery Medication Reconciliation New Medications: Methylprednisolone (Medrol Dosepak) 4 Mg Rogers 0 PO DAILY, #1 PKT Continued Medications: Albuterol Hfa (Ventolin Hfa) 200 Puffs/82757 Mcg Aers 2 PUFFS INH Q2H PRN for Shortness of Breath Amlodipine Besylate (Norvasc) 5 Mg Tab 5 MG PO QAM Aspirin (Aspirin Ec) 81 Mg Tab 81 MG PO DAILY Fluticasone Prop/Salmeterol (Advair Diskus 500/50 60 Dose) 1 Ea Aerp 1 PUFF INH BID Home O2 Therapy (Oxygen) Gas 2 LITERS NA PRN, BTL Hydrocodone W/ Homatropine (Hycodan 5/1.5MG 5 Ml) 1 Syp Syp 5 ML PO Q4H PRN for Cough, ML Insulin Aspart (Novolog Flexpen) 100 Units/Ml Inj 14 UNITS SQ TIDM Insulin Glargine (Lantus) 100 Unit/Ml Inj 45-50 UNITS SC HS, VIAL Ipratropium-Albuterol (Duoneb) 3 Ml Nebu 1 TREATMENT INH Q4H PRN for Shortness of Breath, INHA Magnesium Oxide (Mg Supplement (Magnesium) Unknown Strength Cap Unknown Dose PO BID Metformin Hcl (Glucophage) 1,000 Mg Tab 1000 MG PO QAM Multiple Vitamins W/ Minerals (Preservision Areds) 1 Cap Cap 1 CAP PO BID Nystatin/Triamcinolone (Mycogen || ) Cr 1 APPLN TD UD Omeprazole (Omeprazole) 20 Mg Tab 20 MG PO HS Polyethylene Glycol 3350 (Bulk (Polyethylene Glycol 3350) 1 Pow Pow 0.5 DOSE PO QAM Ropinirole (Requip) 0.5 Mg Tab 1.5 MG PO HS TAKE THREE 0.5MG TABLETS Simvastatin (Zocor) 40 Mg Tab 40 MG PO QPM Telmisartan (Micardis) 80 Mg Tab 80 MG PO QAM, TAB Umeclidinium [place] (Incruse Ellipta) 62.5 Mcg/Inh Inh 1 PUFF INH QAM Discharge Exam Feels her usual wheezing but is requesting a Medrol Dose pack to go home with as this usually helps her. Last steroid use was about 2 weeks ago. She denies any other problems. has O2 for use at home qhs and prn during daytime. No N/V, no abd pain, is moving bowels, no diarrhea. No chest pain Review of Systems: Constitutional: No problem reported Eyes: No problem reported ENT: No problem reported Respiratory: + wheezing, + shortness of breath (chronic) Cardiovascular: No problem reported Abdomen: No problem reported Musculoskeletal: No problem reported Genitourinary - Female: No problem reported Neurologic: No problem reported Psychiatric: No problem reported Endocrine: No problem reported Hematologic / Lymphatic: No problem reported Integumentary: No problem reported Physical Exam: General Appearance: WD/WN, no apparent distress, + obese Eyes: normal inspection, sclerae normal ENT: hearing grossly normal, pharynx normal Neck: trachea midline Respiratory/Chest: no respiratory distress, no accessory muscle use, + decreased breath sounds (diminished througout, some scattered exp wheezes, no crackles or rhonchi) Cardiovascular: regular rate, rhythm, no edema, no murmur Abdomen / GI: normal bowel sounds, non tender, soft, no organomegaly, no pulsatile mass Extremities: normal inspection, no calf tenderness, normal capillary refill , no pedal edema Neurologic/Psychiatric: alert, normal mood/affect, oriented x 3 Skin: normal color, warm/dry, no rash Lymphatic: no adenopathy Hospital Course Ms. Resendiz is a 72 y/o female with a h/o COPD, chronic hypoxic respiratory failure , Pernicious Anemia, T2DM on insulin, HTN, Pulmonary Nodules, REJI on night 2 L O2, and Morbid Obesity (BMI 43) who is a direct admit from the PACU due to acute respiratory insufficiency and delayed extubation after surgery. Patient is S/P endobronchial U/S with biopsy and electromagnetic navigational bronchoscopy with biopsy taking approx. 20 samples. Post-Operative Respiratory Insufficiency/Acute on chronic hypercapnic and hypoxic respiratory failure/COPD/REJI: S/P Bx by Dr. Churchill - Likely multifactorial including known COPD, REJI, obesity hypoventilation...in the setting of anesthesia -had - Patient was extubated and and on BiPAP and then weaned to room air/2LNC intermittently (her baseline) - appreciate ICU management -transferred out of ICU within a few hours after admission -continue home O2 upon discharge - continue home inhalers and bronchodilators -requesting Medrol Dose pack for wheezing upon discharge Pulm nodules-s/p biopsies -f/u with Thoracic Surgery after discharge as scheduled to f/u on results -f/u with Pulmonology T2DM, on chcf insulin, with hyperglycemia here-now improved - restart home Metformin on discharge, continue home insulin HTN:BPs controlled - Norvasc 5 mg daily and Telmisartan 80 mg daily HLD:stable - Simvastatin 40 mg daily Stable for discharge to home Total Time Spent: Greater than 30 minutes This includes examination of the patient, discharge planning, medication reconciliation, and communication with other providers. Discharge Instructions Please refer to the electronic Patient Visit Report (Discharge Instructions) for additional information. Follow-Up PCP and Pulmonology within 1-2 weeks Thoracic Surgery within 1-2 weeks Additional Copies To Jean Beach M.D.; Miguel Angel Churchill MD"
[2017-12-19 09:34] VITALS: BP 128/62; PULSE 83; TEMP 36.8; O2SAT 96
--- NOTE | 2017-12-19 09:46 | SURGERY PROGRESS NOTE ---
DATE: 12/19/2017 Ms. Resendiz is seen today on 12/19/2017. She underwent an endobronchial ultrasound with navigational bronchoscopy yesterday. Her rapid on-site evaluation showed very little. We did multiple biopsies and really did not even get lymph tissue. She had difficulty after we came off the general anesthesia. She was admitted initially to the unit but then was able to be extubated and then did quite well. She has underlying pulmonary disease which was exacerbated by her general anesthesia. She is much improved this morning. She is going to be discharged. I will see her back in the office later this week to go over her final pathology. I suspect we are dealing with metastatic disease. We will discuss further diagnostic procedures based on what we find from the cell blocks from these current biopsies.
[2017-12-19] MEDS ORDERED: INSULIN GLARGINE SOLOSTAR 100 UNITS/ML 3 ML PEN SC SCH (21:00)
[2018-01-04] MEDS ORDERED: SLWMEC PO (08:34)
[2018-01-04] MEDS ORDERED: NVLGI/PEN SQ (08:43)
[2018-01-04] MEDS ORDERED: ERGO500037 PO (09:08)
== END 2017-12-19 10:31 | disposition home or self-care (01) | DRG 189 ==
LOC: C.ACU 05:04 → ENRESERV 10:54 → C.MSICU 11:14 → ENRESERV 16:57 → C.MS2W 17:38
PROVIDERS: ADMIT Internal Medicine; ATTEND Family Medicine
DX: J95.822 Acute and chronic postprocedural respiratory failure (principal); R59.0 Localized enlarged lymph nodes; R91.1 Solitary pulmonary nodule; R91.8 Other nonspecific abnormal finding of lung field; J45.909 Unspecified asthma, uncomplicated; J44.9 Chronic obstructive pulmonary disease, unspecified; K21.9 Gastro-esophageal reflux disease without esophagitis; E11.65 Type 2 diabetes mellitus with hyperglycemia; M15.9 Polyosteoarthritis, unspecified; E78.5 Hyperlipidemia, unspecified; I10 Essential (primary) hypertension; E66.01 Morbid (severe) obesity due to excess calories; G47.33 Obstructive sleep apnea (adult) (pediatric); G62.9 Polyneuropathy, unspecified; G25.81 Restless legs syndrome; E53.8 Deficiency of other specified B group vitamins; Z82.49 Family history of ischemic heart disease and other diseases of the circulatory system; Z83.3 Family history of diabetes mellitus; Z80.3 Family history of malignant neoplasm of breast; Z79.899 Other long term (current) drug therapy; Z79.4 Long term (current) use of insulin; Z79.82 Long term (current) use of aspirin; Z68.41 Body mass index [BMI] 40.0-44.9, adult

== ENCOUNTER → 2017-12-31 | Outpatient (CLI) | payer BC ==
[~2017-12-31] MED LIST changes: +ASPI81TA28 PO; +ERGO500037 PO; +SLWMEC PO; +TRAM-453 PO
== END | disposition home or self-care (01) ==
LOC: C.MAMM 07:44
PROVIDERS: ATTEND Nurse Practitioner Adult Health
DX: M85.80 Other specified disorders of bone density and structure, unspecified site (principal); Z79.52 Long term (current) use of systemic steroids

== ENCOUNTER 2018-01-18 10:39 | Day surgery (SDC) | payer BC ==
[2018-01-15 14:49] VITALS: Ht 167.6 cm; Wt 119.5 kg
[~2018-01-18] VITALS: Ht 167.6 cm; Wt 119.5 kg
[~2018-01-18 10:39] MED LIST changes: +LACTATED RINGER'S 1000ML 1,000 ML IV SCH; -MAGN1CAP2 PO; +METH1TAB81 PO; -OXGN; -TRAM-453 PO
[2018-01-18 11:04] VITALS: BP 167/87; PULSE 79; TEMP 36.7; O2SAT 97
--- NOTE | 2018-01-18 11:48 | Discharge Instructions ---
Discharge Instructions Date of Service Jan 18, 2018. Visit Reason for Visit: Mediastinal Adenopathy Discharge Discharge Diagnosis / Problem: Mediastinal Adenopathy Discharge Goals Goal(s): Learn about illness Activity Recommendations Activity Limitations: resume your previous activity (in 24 hours) Anesthesia . Post Anesthesia Instructions: If you have had General Anesthesia or IV Sedation: * Do not drive today. * Resume driving when surgeon permits. * Do not make important decisions or sign legal documents today. * Call surgeon for: 1. Temperature elevations greater than 101 degrees F. 2. Uncontrollable pain. 3. Excessive bleeding. 4. Persistent nausea and vomiting. 5. Medication intolerance (nausea, vomiting or rash). * For nausea and vomiting use only clear liquids such as: tea, soda, bouillon until nausea subsides, then gradually increase diet as tolerated. * If you have any concerns or questions, call your surgeon's office. If physician is unavailable and it is an emergency, call 911 or go to the nearest emergency room. . Instructions / Follow-Up Instructions / Follow-Up 1. You may remove dressing in 3 days and shower thereafter. No tub baths. 2. Keep your scheduled appointment with Dr. Churchill on January 26, 2018 @ 9:45 am. Diet Recommendations Recommended Home Diet: resume previous diet Pending Studies Studies pending at discharge: no Medical Emergencies . Who to Call and When: Medical Emergencies: If at any time you feel your situation is an emergency, please call 911 immediately. . Non-Emergent Contact Non-Emergency issues call your: Surgeon Call Non-Emergent contact if: you have a fever, your pain is not controlled, wound has increased drainage . . "Provider Documentation" section prepared by Yury Sheikh. .
[2018-01-18] MEDS ORDERED: ATROPINE SULFATE 0.1 MG/ML 5ML SYR IV PRN (12:00)
[2018-01-18] MEDS ORDERED: ONDANSETRON INJ 2 MG/ML 2 ML VIAL IV PRN (12:00)
[2018-01-18] MEDS ORDERED: FENTANYL CITRATE INJ 50 MCG/1 ML 2 ML VIAL IV PRN (12:00)
[2018-01-18] MEDS ORDERED: EpHEDrine SULFATE INJ 50 MG/ML AMP IV PRN (12:00)
[2018-01-18] MEDS ORDERED: PROMETHAZINE HCL INJ 6.25 MG in SODIUM CHLORIDE 0.9% 50ML 50 ML IV PRN (12:00)
[2018-01-18] MEDS ORDERED: FENTANYL CITRATE INJ 50 MCG/1 ML 2 ML VIAL ONE (12:18)
[2018-01-18] MEDS ORDERED: DEXAMETHASONE SOD INJ 4 MG/ML VIAL ONE (12:18)
[2018-01-18] MEDS ORDERED: ONDANSETRON INJ 2 MG/ML 2 ML VIAL ONE (12:18)
[2018-01-18] MEDS ORDERED: NEOSTIGMINE METHYLSULFATE 5 MG/5 ML SYR ONE (12:18)
[2018-01-18] MEDS ORDERED: PROPOFOL IV EMULSION 10 MG/ML 20 ML VIAL ONE (12:18)
[2018-01-18] MEDS ORDERED: GLYCOPYRROLATE INJ 0.2 MG/ML VIAL ONE (12:18)
[2018-01-18] MEDS ORDERED: MIDAZOLAM HCL 1 MG/ML 2ML VIAL ONE (12:18)
[2018-01-18] MEDS ORDERED: LIDOCAINE HCL 2% 2 ML VIAL (20MG/ML) ONE (12:18)
[2018-01-18] MEDS ORDERED: ULT/50 PO (13:31)
[2018-01-18] MEDS ORDERED: ESMOLOL HCL 10 MG/ML 10 ML VIAL ONE (14:07)
[2018-01-18] MEDS ORDERED: CEFAZOLIN SOD 1 GM VIAL ONE (14:08)
--- NOTE | 2018-01-18 14:11 | [facility] Post Operative Brief Note ---
Immediate Operative Summary Operative Date Jan 18, 2018. 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 Miguel Angel Churchill Data Sciences Director Surgeon(s) Chalino Sheikh PA-C Estimated Blood Loss 10ml Findings Consistent with Post-Op Diagnosis Specimens Frozen Specimen #1: R4 - sent out of room at 1353 by OR camden Tucker Anesthesia Type General
[2018-01-18] MEDS ORDERED: TRAMADOL HCL 50 MG TAB PO PRN (14:15)
[2018-01-18] MEDS ORDERED: MoRPHine SULFATE 2 MG/ML CARP IV PRN (14:15)
--- NOTE | 2018-01-18 14:51 | DIAGNOSTIC IMAGING REPORT ---
CHEST ONE VIEW PORTABLE CLINICAL HISTORY: Mediastinoscopy. COMPARISON STUDY: Chest CT December 07, 2017. FINDINGS: There is no pneumothorax. Several pulmonary nodules are better depicted on the prior chest CT. Mild cardiomegaly is noted without evidence for pulmonary edema. No pneumomediastinum is identified by radiography. IMPRESSION: 1. No acute cardiopulmonary findings. No pneumothorax. 2. Several pulmonary nodules which are better depicted on prior chest CT. Electronically signed by: Benjamin Wilkinson M.D. 01/18/2018 2:49 PM Dictated Date/Time: 01/18/2018 2:48 PM
--- NOTE | 2018-01-18 15:00 | Anesthesiology Progress Note ---
Anesthesia Post Op Note Date & Time Jan 18, 2018 at 14:59 Vital Signs Pain Intensity: 6.0 Vital Signs Past 12 Hours Date Time Temp Pulse Resp B/P (MAP) Pulse Ox O2 Delivery O2 Flow Rate FiO2 01/18/18 14:50 86 20 116/66 92 Room Air 01/18/18 14:40 87 16 140/71 100 Oxymask 10 01/18/18 14:30 87 19 162/78 100 Oxymask 10 01/18/18 14:22 36.4 87 16 158/84 100 Oxymask 10 01/18/18 11:04 36.7 79 18 167/87 (113) 97 Room Air Notes Mental Status: alert / awake / arousable, participated in evaluation Pt Amnestic to Procedure: Yes Nausea / Vomiting: adequately controlled Pain: adequately controlled Airway Patency, RR, SpO2: stable & adequate BP & HR: stable & adequate Hydration State: stable & adequate Anesthetic Complications: no major complications apparent
[2018-01-18 15:22] VITALS: BP 135/65; PULSE 85; TEMP 36.8; O2SAT 92
--- NOTE | 2018-01-18 15:25 | OPERATIVE REPORT ---
DATE OF OPERATION: 01/18/2018 PREOPERATIVE DIAGNOSIS: Hypermetabolic mediastinal lymphadenopathy. POSTOPERATIVE DIAGNOSIS: Hypermetabolic mediastinal lymphadenopathy. PROCEDURE: Video mediastinoscopy with biopsy. SURGEON: Miguel Angel Churchill MD. GROCERY DEPARTMENT MANAGER: Chalino Sheikh PA-C (MrOly Sheikh was present for the entire case and was instrumental, passing instruments, first assisting and closed the skin incision at the conclusion of the case). ANESTHESIA: General anesthesia, endotracheal intubation. INDICATION FOR PROCEDURE AND FINDINGS: Cady Resendiz is an interesting 72-year-old female who has been concerning to us with hypermetabolic lymphadenopathy. She also has a hypermetabolic spot in her spine as well as the left lateral rib. She also had hypermetabolic lymphadenopathy in her pelvis and inguinal area. I did an endobronchial ultrasound and all we got were inflammatory cells. I did not feel comfortable with this. I presented her at our multidisciplinary cancer conference and given that her lymph nodes were hypermetabolic, we felt that removing one of these would be helpful. Dr. Jos Esquivel performed an excision of a right inguinal groin node and granulomatous disease was noted. She had no evidence of malignancy. I am still concerned that she had metastatic disease to her bone and as the bone was going to be much more problematic to biopsy than her mediastinal lymph nodes, I felt that a mediastinoscopy would be beneficial. I had a long discussion with the patient and his in the office last week and we elected to proceed. On 01/18/2018, the patient underwent an uncomplicated video mediastinoscopy. I biopsied a large level 4 and large level 2 as well as a level 7 and level 10 lymph nodes on the right. These were very difficult to dissect down. They were quite adherent. Frozen section of level 4 nodes showed what appeared to be chronic burned out and granulomatous disease; however, Dr. Sanchez felt that it was different than what he had seen in the groin. We gave them a great deal more tissue than just a frozen section and we did send it for culture. DESCRIPTION OF PROCEDURE: The patient was brought to operating room and placed in supine position. General anesthesia induced and endotracheal intubation was performed. She was prepped and draped in the usual sterile fashion. Incision was made 1 fingerbreadth above the sternal notch. Sharp and blunt dissection were used to easily dissect down the strap muscles, which were divided in the midline. I easily developed a plane pretracheally bluntly with my finger could feel a hard lymph node in the right level 2 and level 4 area. Video mediastinoscope was then inserted down the trachea without difficulty and came upon a large level 4 node. I did several biopsies of this node. It was very hard and acanthotic. I sent this off for frozen section. While waiting, I removed this node in its entirety all the way down to the azygos vein. There was also a large node at the level 2 area which was a bit more white and fleshy and I removed this in its entirety. Portions of this were sent for culture. I then biopsied the level 10 node. It was very difficult to get to as it was very hard. I did biopsy of level 7 node which was quite stuck and adherent, difficult to biopsy. Dr. Sanchez elected to do this frozen section. I biopsied about all that we saw that was hypermetabolic. We got no significant bleeding. The video mediastinoscope was slowly removed. 3-0 Vicryl was used to close the strap muscles, 4-0 Monocryl was used in running subcuticular fashion to approximate the wound edges. She tolerated it quite well. I attest to the content of the Intraoperative Record and any orders documented therein. Any exception s are noted below.
[2018-01-18 15:52] VITALS: BP 144/62; PULSE 82; TEMP 36.6; O2SAT 95
== END 2018-01-18 16:15 | disposition home or self-care (01) ==
LOC: C.ACU 10:39
PROVIDERS: ATTEND Surgery
DX: R59.1 Generalized enlarged lymph nodes (principal); J44.9 Chronic obstructive pulmonary disease, unspecified; G47.33 Obstructive sleep apnea (adult) (pediatric); E11.9 Type 2 diabetes mellitus without complications; K21.9 Gastro-esophageal reflux disease without esophagitis; E55.9 Vitamin D deficiency, unspecified; G62.9 Polyneuropathy, unspecified; E53.8 Deficiency of other specified B group vitamins; K64.8 Other hemorrhoids; E78.5 Hyperlipidemia, unspecified; E66.01 Morbid (severe) obesity due to excess calories; Z68.41 Body mass index [BMI] 40.0-44.9, adult; Z99.81 Dependence on supplemental oxygen; Z86.010 Personal history of colon polyps; Z90.49 Acquired absence of other specified parts of digestive tract; Z96.649 Presence of unspecified artificial hip joint; Z79.4 Long term (current) use of insulin; Z82.49 Family history of ischemic heart disease and other diseases of the circulatory system; Z83.3 Family history of diabetes mellitus

== ENCOUNTER → 2018-04-09 | Outpatient (CLI) | payer BC ==
[~2018-04-09] MED LIST changes: +IPRA-64 INH; -IPRASOL4 INH; -LACTATED RINGER'S 1000ML 1,000 ML IV SCH; +ULT/50 PO
[2018-04-09 16:21] LABS: ALBUMIN 3.3 gm/dl (3.4-5.0); CALCIUM 8.8 mg/dl (8.5-10.1)
[2018-04-10 06:34] LABS: HEMOGLOBIN A1C 6.8 % (4.5-5.6)
== END | disposition home or self-care (01) ==
LOC: C.LAB1850 14:10
PROVIDERS: ATTEND Internal Medicine Endocrinology, Diabetes & Metabolism
DX: I10 Essential (primary) hypertension (principal); E66.01 Morbid (severe) obesity due to excess calories; E11.9 Type 2 diabetes mellitus without complications; E55.9 Vitamin D deficiency, unspecified; M85.80 Other specified disorders of bone density and structure, unspecified site

== ENCOUNTER → 2018-04-13 | Outpatient (CLI) | payer BC ==
--- NOTE | 2018-04-13 16:19 | MAMMOGRAPHY REPORT ---
BILATERAL DIGITAL SCREENING MAMMOGRAM TOMOSYNTHESIS WITH CAD: 04/13/2018 CLINICAL HISTORY: Routine screening. Patient has no complaints. TECHNIQUE: The study was acquired using full field digital technology and interpreted from soft copy. Breast tomosynthesis in addition to standard 2D mammography was performed. Current study was also ev aluated with a Computer Aided Detection (CAD) system. COMPARISON: Comparison is made to exams dated: 04/09/2017 mammogram, 04/07/2016 mammogram, 04/04/2015 m ammogram, 04/03/2014 mammogram, 03/30/2013 mammogram, and 03/29/2012 mammogram - [facility] nter. BREAST COMPOSITION: There are scattered areas of fibroglandular density in both breasts. FINDINGS: Decreasing focal asymmetry in the upper outer middle one third of the left breast confirms benignity. There are scattered benign coarse calcifications and mild vascular calcifications in the breasts. No suspicious mass, architectural distortion or cluster of microcalcifications is seen. IMPRESSION: ACR BI-RADS CATEGORY 1: NEGATIVE There is no mammographic evidence of malignancy. A 1 year screening mammogram is recommended.( 019) The patient will receive written notification of the results. Some breast cancers are not detected with mammography. A negative mammographic report should not familia y biopsy if a clinically suggestive mass is present. Maria Isabel Pham M.D. ay/:04/13/2018 15:53:01 Boat Hoist Operator: RT Suni(Soledad)(M), [facility] letter sent: Normal 1/2 BI-RADS Code: ACR BI-RADS Category 1: Negative
== END | disposition home or self-care (01) ==
LOC: C.MAMM 08:46
PROVIDERS: ATTEND Internal Medicine Pulmonary Disease
DX: Z12.31 Encounter for screening mammogram for malignant neoplasm of breast (principal)

== ENCOUNTER 2020-03-06 12:49 | Observation (INO) ==
--- NOTE | 2020-03-06 13:58 | History & Physical Bridge Note ---
Date of Service March 06, 2020 History & Physical Bridge Note I have examined the patient, reviewed the History & Physical and in the interval since the performance of the History & Physical I have noted the following changes of clinical significance: no changes noted. I reviewed the indications, procedure, risks and alternatives of pacemaker implantation and loop recorder explantation with her and she understands and agrees to proceed. Consent obtained. I also discussed sedation with her and she agrees. Consent obtained.
--- NOTE | 2020-03-06 13:59 | Pre Anesthesia Assessment ---
Date of Service March 06, 2020 Pre Sedation Assessment Vital Signs Temp Pulse Resp Pulse Ox 03/06/20 13:26 36.8 C 78 18 99 Cardiovascular RRR, no murmur, no edema Respiratory normal respiratory effort, lungs clear to auscultation Pre-Sedation Airway Assessment Smoking Status: Never smoker Hx Sleep Apnea: Yes Hx Difficult Intubation: No Short, Thick Neck: Yes Thyromental Distance: > or= 3.5 Finger Breadths Oral Cavity: + Dentures Mallampati Class: II ASA: ASA3 NPO Status Date of Last Intake of Fluids: 03/05/20 Time of Last Intake of Fluids: 23:55 Date of Last Intake of Solid Food: 03/05/20 Time of Last Intake of Solid Foods: 23:55 Procedure Planning Contraindications for Sedation: none Current Medications Reviewed: Yes Notes The planned sedation has been discussed with the patient. Informed Consent was obtained. I have identified the patient, determined the appropriateness of sedation and have assessed the patient immediately prior to the procedure. All medicine(s) and interventions are by my order.
[2020-03-06] MEDS ORDERED: fentaNYL citrate 100 MCG/2 ML VIAL ONE ×2 (14:04→15:16)
[2020-03-06] MEDS ORDERED: MIDAZOLAM HCL 5 MG/ML 1 ML VIAL ONE (14:04)
[2020-03-06] MEDS ORDERED: LIDOCAINE HCL 1% 20 ML VIAL ONE ×2 (14:06→15:38)
[2020-03-06] MEDS ORDERED: BACITRACIN INJ 50,000 UNIT VIAL ONE (14:06)
[2020-03-06] MEDS ORDERED: BACITRACIN OINT 0.9 GM PKT ONE ×2 (14:09→15:57)
[2020-03-06] MEDS ORDERED: CEFAZOLIN 250 MG/ML 1 GM VIAL IV STA (14:43)
[2020-03-06] MEDS ORDERED: ACETAMINOPHEN W/CODEINE #3 1 TAB PO PRN (16:04)
[2020-03-06] MEDS ORDERED: ACETAMINOPHEN 325 MG TAB PO PRN (16:04)
--- NOTE | 2020-03-06 16:04 | Electrophysiology Report ---
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 Dye was injected the left arm IV site to opacify the left crawford bclavian vein. The subclavian vein was identified and found to be free of obstruction. The left prepectoral region was anesthetized with 1% lidocaine local anesthetic and left axillary venipuncture was performed by percutaneous technique and a guidewire placed through the left subclavian vein into the superior vena cava. The area was further infiltrated with 1% lidocaine local anesthetic and a 5 cm incision was made parallel to the left clavicle and 2 cm below it and carried down to the anterior pectoralis fascia. A pacemaker pocket was formed by blunt dissection anterior to the pectoralis fascia and a bacitracin-soaked sponge (50,000 units in 50 cc normal saline solution) was placed in the pocket. An 8 Egyptian Medtronic lead introducer was placed over the guidewire into the left subclavian vein, the dilator and guidewire were removed and a bipolar active fixation steroid tipped ventricular lead was advanced through the introducer into the superior vena cava. A guidewire was placed through the introducer and the introducer was stripped from the lead and guidewire. Another 8 Egyptian Medtronic lead introducer was placed over the guidewire into the left subclavian vein, the dilator and guidewire were removed and a bipolar active fixation steroid tipped atrial lead was advanced through the introducer into the superior vena cava. A guidewire was placed back through the introducer and the introducer was stripped from the lead and guidewire. Using a curved stylette the ventricular lead was advanced through the right ventricular outflow tract into the pulmonary artery and then using a straight stylette was positioned in the right ventricular apex. The screw was extended fixing the lead in position. Pacing and sensing thresholds were evaluated in bipolar configuration and are recorded on the implant data sheet. Using a curved stylette the atrial lead was positioned in the region of the atrial appendage and the screw extended fixing the lead in position. Pacing and sensing t hresholds were evaluated in bipolar configuration and are recorded on the implant data sheet. Once the leads were in position they were attached to the anterior pectoralis fascia using 2 sutures of 2-0 silk around each lead collar. The bacitracin- soaked sponge was removed from the pocket, hemostasis was obtained, the pacemaker was attached to the leads and placed in the pocket with the leads coil ed beneath it. The incision was closed with a running double subcutaneous closure of 3-0 Vicryl absorbable suture, followed by running subcuticular skin closure of 4-0 Vicryl absorbable suture. The location of the loop recorder was identified by x-ray. The area was infiltrated with 1% lidocaine local anesthetic and a 1 cm incision was made through the old implant scar and carried down to the loop recorder. The loop recorder was dissected free of tissue and explanted. The incision was closed with a subcutaneous continuous closure of 4-0 Vicryl followed by running subcuticular skin closure of 4-0 Vicryl. Steri-Strips were applied and bacitracin ointment was placed on the incision. Bacitracin ointment was placed on both incisions and dressings applied. [facility] Electrophysiology codes Indication for Procedure (1) High-grade atrioventricular block: Pacing Procedure 1: Pacin Insert/Replace Pacer A & V Implantable Monitors Procedure 1: Implantable Monitors: 28532 Cardiac event recorder explant Miscellaneous Procedures Procedure 1: EP Miscellaneous: 42236 Contrast injection for venography Procedure 2: EP Miscellaneous: 31210-72 Vengraphy, extremity PG Moderate Sedation Codes Moderate Sedation Codes Procedure 1: Sedation/Anesthesia: 84596 Mod Sedation by the same physician;Init15 Min Child Age 5 & Up Procedure 2: Sedation/Anesthesia: 88017 Mod Sedation by the same physician; Ea [id number] Minutes
[2020-03-06] MEDS ORDERED: FUROSEMIDE 20 MG TAB PO PRN (16:07)
[2020-03-06] MEDS ORDERED: MECLIZINE 12.5 MG TAB PO PRN (16:07)
--- NOTE | 2020-03-06 16:24 | Post Anesthesia Assessment ---
Date of Service March 06, 2020 Post Sedation Assessment Vital Signs Temp Pulse Resp BP Pulse Ox 03/06/20 16:15 78 18 173/80 H 96 03/06/20 16:00 80 18 162/85 H 95 03/06/20 13:26 36.8 C 78 18 99 Recovery Score Activity: Moves 4 extremities Respiration: Deep Breath/Cough Circulation: +/-20% PreAnes Value Consciousness: Fully Awake Oxygen Saturation: > 92% On Room Air Post Anesthesia Score: 10 Discharge Sedation Level of Care: Fast Track Phase II Post Sedation Plan On clinical assessment, the patient appears to have tolerated the sedation without complications. Patient is recovering as anticipated. Patient will continue to be monitored by nursing and may be discharged when sedation discharge criteria are met per below protocol. Upon Completions of procedure up to 15 minutes continue every 5 minute vital signs and the P.A.R. score; then discharge to a Phase I or Fast Track to Phase II per the following guidelines: * Discharge Patient to appropriate Phase II area if PAR is 8 or greater or return to pre- procedure baseline. The post - procedure orders will be as directed. * If PAR score is less than 8 or not return to pre-procedure baseline then patient will follow Phase I monitoring till PAR is reached for Phase II. The Phase I may be done in procedure room or may call to secure a Phase I area. * If naloxone or flumazenil are used for reversal, hold in Phase I for continued monitoring from when last reversal dose was given for a minimum of 60 minutes or longer pending the nurse and/or physician discretion of patient condition before discharge to Phase II. Please call the Sedation Physician to re-evaluate and complete post-note for discharge to Phase II area. Do NOT discharge from procedure sedation or Phase 1 until post- sedation evaluation note is complete by procedure /sedation MD Sedation Discharge Instructions to be given to the patient at discharge to home.
[2020-03-06] MEDS ORDERED: GLUCOSE 10 TABS/TUBE PO PRN (17:00)
[2020-03-06] MEDS ORDERED: GLUCAGON FOR INJ 1 MG VIAL IM PRN (17:00)
[2020-03-06] MEDS ORDERED: INSULIN ASPART 100 UNITS/ML 3 ML PEN SQ SCH (17:00)
[2020-03-06] MEDS ORDERED: CARBOHYDRATES FOR HYPOGLYCEMIA PO PRN (17:00)
[2020-03-06] MEDS ORDERED: DEXTROSE 50% 50 ML SYRINGE IV PRN (17:00)
[2020-03-06] MEDS ORDERED: GLUCOSE 40% GEL 15 GM TUBE PO PRN (17:00)
[2020-03-06] MEDS ORDERED: ALBUT/IPRATROP 3MG/0.5MG NEB 3 ML VIAL INH PRN (17:46)
[2020-03-06] MEDS: INSULIN ASPART 100 UNITS/ML 3 ML PEN SC SCH (17:48)
[2020-03-06] MEDS: ALBUT/IPRATROP 3MG/0.5MG NEB 3 ML VIAL NEB SCH ×2 (19:49→23:05)
[2020-03-06] MEDS: MAGNESIUM CHLORIDE 64MG DELAYED REL TAB PO SCH (20:14)
[2020-03-06] MEDS: CHOLECALCIFEROL 1,000 UNITS 25 MCG TAB PO SCH (20:15)
[2020-03-06] MEDS ORDERED: ROPINIROLE HCL 1 MG TABLET PO SCH (21:00)
[2020-03-06] MEDS ORDERED: SIMVASTATIN 40 MG TAB PO SCH (21:00)
[2020-03-06] MEDS ORDERED: MONTELUKAST SODIUM 10 MG TABLET PO SCH (21:00)
[2020-03-06] MEDS ORDERED: INSULIN GLARGINE SOLOSTAR 100 UNITS/ML 3 ML PEN SQ SCH (21:00)
[2020-03-07] MEDS: ALBUT/IPRATROP 3MG/0.5MG NEB 3 ML VIAL NEB SCH ×2 (02:18→07:15)
[2020-03-07 06:36] LABS: BUN Creatinine Ratio 24.2 (10-20); Calcium 8.6 mg/dl (8.5-10.1); Creatinine Clr Calc Pharmacy 61.1 ml/min; Est GFR (African American) 69.2; Est GFR (Non-African American) 59.7; Potassium 4.5 mmol/L (3.5-5.1)
[2020-03-07] MEDS ORDERED: METFORMIN HCL 500 MG TAB PO SCH (07:30)
[2020-03-07] MEDS ORDERED: FERROUS SULFATE 325 MG TAB PO SCH (07:30)
[2020-03-07] MEDS ORDERED: [UNRECOGNIZED DRUG - REMARK] SCH (08:00)
--- NOTE | 2020-03-07 08:10 | XRay Report ---
XR chest 2V PA/lateral CLINICAL HISTORY: EXACT TIME ORDERED Evaluate for pneumothorax and l COMPARISON STUDY: 10/27/2019 FINDINGS: Placement of a permanent bipolar cardiac pacemaker. Leads are in good position. No evidence for pneumothorax. Minimal atelectasis right midlung and right base. Calcified granulomas previously noted are present. IMPRESSION: Permanent bipolar cardiac pacemaker with leads in good position. No evidence for pneumot horax. ACT 112: Negative or not required by law. The above report was generated using voice recognition software. It may contain grammatical, syntax or spelling errors. Electronically signed by: Vijay Hernandez M.D. 03/07/2020 8:09 AM
--- NOTE | 2020-03-07 08:35 | Cardiology Progress Note ---
Date of Service March 07, 2020 Assessment & Plan (1) Status post placement of cardiac pacemaker: She is doing well postop day #1 after pacemaker implantation. The site looks good, telemetry shows normal function, the chest x-ray shows good lead position without pneumothorax. She is stable for discharge. I will make arrangements for office follow-up in 2 days. Admission and Anticipated Discharge Date Admission Date: March 06, 2020 Subjective She is feeling well today, she has no significant incisional discomfort. No chest pain or shortness of breath. Physical Exam Physical Exam: Her pacemaker incision site as well as her loop recorder explantation site are clean and dry, there is no swelling or erythema, there is minimal ecchymosis. Dressing changed. Lungs are clear to auscultation and percussion Cardiac rhythm is regular with no murmur or rub Results & Data ([facility]) Vital Signs (Past 12 Hours) Vital Signs Temp Pulse Resp BP Pulse Ox 03/07/20 07:56 36.9 C 79 19 139/81 94 03/07/20 07:15 76 16 99 03/07/20 03:22 36.6 C 75 19 149/70 H 98 03/06/20 23:21 36.6 C 79 19 138/61 97 03/06/20 23:07 80 18 98 Laboratory Results Comprehensive Metabolic Panel 03/07/20 Range/Units 05:42 Sodium 141 (136-145) mmol/L Potassium 4.5 (3.5-5.1) mmol/L Chloride 106 (98-107) mmol/L Carbon Dioxide 32 (21-32) mmol/L BUN 22 H (7-18) mg/dl Creatinine 0.93 (0.6-1.2) mg/dl Glucose 73 (70-99) mg/dl Calcium 8.6 (8.5-10.1) mg/dl Intake and Output 03/06/20 03/07/20 03/07/20 22:59 06:59 14:59 Output Total 300 / 300 Balance -300 / -300 Output: Urine 300 / 300 Other: Other Intake Source Sips Weight 102.8 kg 105.9 kg Diagnostic Findings 1. Electrocardiogram: Postop shows sinus rhythm with first-degree AV block, bifascicular block, appropriate pacemaker inhibition 2. Telemetry: Sinus rhythm with intact AV conduction predominantly 3. Chest x-ray: Good lead position, no pneumothorax 4. Pacemaker evaluation: Excellent pacing and sensing characteristics PG Care Time/CCT Total # of Minutes Spent Total Time Spent with Patient: Total time spent is greater than 50% in coordination of care (as documented) at patient's floor/unit and/or counseling patient: Coding Level of Care Code 23629 Post Operative Follow-Up Diagnoses Status post placement of cardiac pacemaker Z95.0 CPT Codes Dual Lead Pacemaker System - 41856 ([id number])
[2020-03-07] MEDS: INSULIN ASPART 100 UNITS/ML 3 ML PEN SC SCH (08:36)
[2020-03-07] MEDS: MAGNESIUM CHLORIDE 64MG DELAYED REL TAB PO SCH (08:37)
[2020-03-07] MEDS: CHOLECALCIFEROL 1,000 UNITS 25 MCG TAB PO SCH (08:38)
[2020-03-07] MEDS ORDERED: MULTIVITAMIN TAB PO SCH (09:00)
[2020-03-07] MEDS ORDERED: TELMISARTAN 40 MG TAB PO SCH (09:00)
[2020-03-07] MEDS ORDERED: UMECLIDINIUM BROMIDE 62.5MCG/BLISTER 7 PUFFS/INHALER INH SCH (09:00)
[2020-03-07] MEDS ORDERED: FLUTICASONE/VILANTEROL 200/25MCG 14 PUFFS/INHALER INH SCH (09:00)
[2020-03-07] MEDS ORDERED: ASPIRIN 81 MG ECTAB PO SCH (09:00)
[2020-03-07] MEDS ORDERED: PANTOprazole 40 MG TAB PO SCH (09:00)
--- NOTE | 2020-03-07 15:29 | Electrocardiogram Report ---
Test Reason : Blood Pressure : / mmHG Vent. Rate : 081 BPM Atrial Rate : 081 BPM P-R Int : 280 ms QRS Dur : 162 ms QT Int : 402 ms P-R-T Axes : 066 -72 027 degrees QTc Int : 466 ms Sinus rhythm with 1st degree A-V block Left axis deviation Right bundle branch block Abnormal ECG When compared with ECG of 02-OCT-2018 04:28, Premature ventricular complexes are no longer Present Confirmed by Hank Parker ([id number] on 03/07/2020 3:29:09 PM Referred By: Feliz Mariano Confirmed By:Bethel Parker
--- NOTE | 2020-03-19 09:32 | Discharge Summary ---
Date of Service March 07, 2020 Admission HPI Per Admitting Provider This is a very pleasant 73-year-old woman who has a long history of first-degree AV block and a more recent history of intermittent presyncope and occasional syncope. Her first degree AV block goes back as far as our records do, at least to 2012, although at that time her intraventricular conduction was normal. Subsequently she has developed right bundle branch block (this was identified on 04/04/2016 and was not present 04/17/2014). She describes symptoms of presyncope going back several years, exactly how far back is not clear and they were infrequent when they first started but now are becoming quite frequent. She has presyncope often several times per day, not every day but most days she will have at least one episode. She has also had several episodes of syncope, these are momentary (her thinks a few minutes although from the description it may not be that long), she has only truly passed out 2 or 3 times. When she feels presyncopal she will lay down and usually not pass out. The last time she passed out was about 3 months ago while in a restaurant, she felt as though she would pass out and remain sitting and evidently did lose consciousness. This was witnessed by her and family and they went over to her and then she woke up without sequela. She does not have any associated shortness of breath or chest discomfort when she has these episodes. She does have dyspnea on exertion, however she also has asthma and this has not been progressive. She is also quite overweight. She does not have exertional lightheadedness or dizziness. At times at night she will feel her heart beating rapidly, but this is not associated with presyncope or syncope and she doesn't recall having palpitations when she does have her presyncope. She does not have orthopnea or PND and a dobutamine echo in 2012 was negative for ischemia and her LV function was good. To evaluate her presyncope and syncope I arranged a 24- hour Holter monitor which was unremarkable, we therefore arranged an event recor vijay to try to record these symptoms. She did not have symptoms while wearing the Holter monitor but she did well wearing the event recorder. She had one of her typical presyncopal events and did record it along with her symptoms. An event monitor was worn from 07/23/2016 through 08/20/2016. She did have one of her typical presyncopal events on 08/15/2016 at 11:20 AM, she did send in the recording with a note that she was dizzy. At this time there is no change in rhythm, it was sinus rhythm with first-degree AV block and a heart rate of about 85 bpm. We therefore implanted a loop recorder on January 11, 2019. She has not had much in the way of symptoms other than the palpitations since loop recorder implantation until recently, however toward the end of January 2020 she was having symptoms that she felt like she might pass out, which is quite different than her typical palpitations for which she is activated the recorder in the past. There is been no change in her medications. Other than that she has done well, she still has difficulty with exertion due to her lung disease so she comes to the office in a wheelchair because of the long walk, but she can ambulate around her home without difficulty. Coinciding with her symptoms of presyncope are a number of episodes of second- degree AV block resulting in significant bradycardia. She had 5 episodes on February 15, 2020 where the heart rate averaged 34 to 39 bpm, however there was at least one episode where she had a pause during this time with a heart rate of less than 30 bpm. The rhythm recorded in the loop recorder is consistent with second-degree AV block, often 2-1 but at times higher grade probably a brief episode of complete heart block with an escape rhythm. She had symptoms with these episodes and they are probably what she was experiencing in the past and she should have a pacemaker. Admission Exam (Per Admitting) Respiratory normal respiratory effort, lungs clear to auscultation Cardiovascular Rate/Rhythm: regular rate Discharge Data Procedures Performed Operation Date: 03/06/20 14:00 Actual Procedures p Pacer with A/V Leads (Dual) - Feliz Mariano MD s Venogram, Unilateral - Feliz Mariano MD s Remove Cardiac Event Recorder - Feliz Mariano MD Hospital Course (1) Status post placement of cardiac pacemaker: A pacemaker was implanted without difficulty. She is doing well postop day #1 after pacemaker implantation. The site looks good, telemetry shows normal function, the chest x-ray shows good lead position without pneumothorax. She is stable for discharge. I will make arrangements for office follow-up in 2 days. Coding Level of Care Code D/C Day Management <30 mins Diagnoses Status post placement of cardiac pacemaker Z95.0
== END 2020-03-07 10:55 | disposition home or self-care (01) ==
LOC: EP 12:49 → 2S 12:49

== ENCOUNTER 2020-10-24 21:42 | Inpatient (IN) ==
[2020-10-24] MEDS ORDERED: fentaNYL citrate 100 MCG/2 ML VIAL IV STA (22:40)
[2020-10-24 23:34] LABS: Basophils # (auto) 0.02 K/uL (0-0.2); Basophils % (auto) 0.4 %; Eosinophils # (auto) 0.03 K/uL (0-0.5); Eosinophils % (auto) 0.6 %; Hematocrit (blood only) 36.1 % (37-47); Hemoglobin 11.4 g/dL (12.0-16.0); Immature Granulocytes # (auto) 0.02 K/uL (0.00-0.02); Immature Granulocytes % (auto) 0.4 %; Lymphocytes % (auto) 18.8 %; Mean Corpuscular Hemoglobin 27.9 pg (25-34); Mean Corpuscular Hgb Conc 31.6 g/dL (32-36); Mean Corpuscular Volume 88.3 fL (80-100); Mean Platelet Volume 11.2 fL (7.4-10.4); Monocytes # (auto) 0.46 K/uL (0.11-0.59); Monocytes % (auto) 8.6 %; Neutrophils % (auto) 71.2 %; Platelet Count 266 K/uL (130-400); RDW Coefficient of Variation 14.3 % (11.5-14.5); RDW Standard Deviation 46.6 fL (36.4-46.3); Red Blood Count 4.09 M/uL (4.2-5.4); White Blood Count 5.33 K/uL (4.8-10.8)
[2020-10-24 23:48] LABS: Partial Thromboplastin Time 26.9 Seconds (21.0-31.0); Prothrombin Time 9.8 Seconds (9.0-12.0)
[2020-10-24 23:57] LABS: BUN Creatinine Ratio 17.3 (10-20); Calcium 8.4 mg/dl (8.5-10.1); Creatinine Clr Calc Pharmacy 59.7 ml/min; Est GFR (African American) 65.3; Est GFR (Non-African American) 56.3; Potassium 4.3 mmol/L (3.5-5.1)
[2020-10-25 00:25] LABS: Albumin Globulin Ratio 0.9 (0.9-2); Bilirubin,Total 0.3 mg/dl (0.2-1); Globulin 3.4 gm/dl (2.5-4.0); Total Protein 6.4 gm/dl (6.4-8.2); Troponin I 0.98 ng/ml (0-0.045)
[2020-10-25] MEDS ORDERED: MoRPHine SULFATE 4 MG/ML 1 ML CARP\\VIAL IV STA (00:27)
[2020-10-25 00:28] LABS: Appearance Urine Cloudy (Clear); Bacteria Urine Automated Negative (Negative); Blood Urine Negative (Negative); Color Urine Dark Yellow; Epithelial Cell Urine Auto >30 /lpf (0-5); Glucose Urine UA Negative (Negative); Ketones Urine Trace (Negative); Leukocyte Esterase Urine Trace (Negative); Nitrite Urine Negative (Negative); Protein Urine 2+ (Negative); Specific Gravity Urine 1.024 (1.000-1.030); Urobilinogen Urine Negative (Negative); pH Urine 5.5 (4.5-7.5)
[2020-10-25 00:34] LABS: Bilirubin Urine 1+ (Negative)
--- NOTE | 2020-10-25 01:21 | History & Physical Report ---
Date of Service October 25, 2020 Assessment & Plan (1) Periprosthetic fracture around internal prosthetic left hip joint: Patient will need to have cardiology assessment before going forward with hip surgery. Acetaminophen 650 mg p.o. every 6 hours as needed mild pain or temperature Mobile 5/325 1 p.o. every 4 hours as needed moderate pain Dilaudid 0.25 mg IV every 3 hours as needed severe pain Consult orthopedic surgery, Dr. Dinero is aware. Present on Admission?: Yes (2) Non-STEMI (non-ST elevated myocardial infarction): Troponin elevated at 0.98. The patient will be admitted to telemetry for serial cardiac enzymes, serial EKG's, cardiac rhythm monitoring and a 2-D echocardiogram with Dopplers. We will consult cardiology to help determine if this is more of an issue with COVID-19 myocarditis versus vascular disease. Present on Admission?: Yes (3) Restless leg syndrome: Continue ropinirole Present on Admission?: Yes (4) Vitamin D deficiency: Continue vitamin D Present on Admission?: Yes (5) Type 2 diabetes mellitus, with long-term current use of insulin: Hold Metformin. Decrease Lantus from 30 to 20 units subcu at bedtime Placed on Accu-Cheks before meals and at bedtime/every 6 hours with NovoLog coverage per scale Present on Admission?: Yes (6) Obstructive sleep apnea: Patient refuses CPAP Present on Admission?: Yes (7) Dyslipidemia: Placed on atorvastatin 40 mg daily Check a fasting lipid panel Present on Admission?: Yes (8) Esophageal reflux: Placed on famotidine 20 mg IV every 12 hours Present on Admission?: Yes (9) Asthma: Continue Umeclidinium. 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 The patient presents to the emergency department after mechanical fall, with work-up in the emergency department including x-rays showing a left periprosthetic hip fracture Allergies Allergy/AdvReac Type Severity Reaction Status Date / Time No Known Allergies Allergy Verified 10/24/20 22:58 Home Medications Medication Instructions Recorded Confirmed Type Slow-Mag 71.5 mg PO BID 10/02/18 10/24/20 History aspirin 81 mg PO DAILY 10/02/18 10/24/20 History cholecalciferol (vitamin D3) 2,000 unit PO BID 10/02/18 10/24/20 History [Vitamin D3] fluticasone propion-salmeterol 1 puff INHALATION BID 10/02/18 10/24/20 History furosemide 20 mg PO DAILY PRN 10/02/18 10/24/20 History zoledronic gbsf-vwvpesbt-kzrqu 5 mg IV USEASDIRECTD 01/11/19 10/24/20 History [Reclast] Dexcom G6 Relay Shop Tester #1 ea NS 07/29/19 07/23/20 Rx Dexcom G6 Sensor #3 ea NS 07/29/19 07/23/20 Rx Dexcom G6 Transmitter #1 ea NS 07/29/19 07/23/20 Rx polyethylene glycol 3350 17 8.5 - 17 g PO DAILY #510 gm 08/03/19 10/24/20 Rx gram/dose oral powder multivitamin 1 tab PO DAILY 10/25/19 10/24/20 History blood sugar diagnostic #100 ea 11/24/19 07/23/20 Rx nystatin-triamcinolone 100,000 1 applic TOPICAL TID PRN #15 gm 11/24/19 10/24/20 Rx unit/gram-0.1 % topical ointment pen needle, diabetic 31 gauge x #500 box 11/24/19 07/23/20 Rx 5/16" albuterol sulfate 90 mcg/actuation 2 puff INHALATION Q4H PRN #18 gm 12/08/19 10/24/20 Rx aerosol inhaler mepolizumab 100 mg/mL subcutaneous 100 mg SQ Q4WK #1 ml 01/04/20 10/24/20 Rx auto-injector syringe with needle 1 mL 27 x 1/2" #1 ea 01/04/20 07/23/20 Rx ferrous sulfate 325 mg (65 mg 325 mg PO DAILY tab 01/30/20 10/24/20 History iron) tablet meclizine 12.5 mg tablet 12.5 mg PO TID PRN #30 tab 02/16/20 10/24/20 Rx ipratropium 0.5 mg-albuterol 3 mg See Rx Instructions .ROUTE 04/18/20 10/24/20 History (2.5 mg base)/3 mL nebulization .COMPLEX vial soln telmisartan 80 mg tablet 80 mg PO DAILY #90 tab 04/26/20 10/24/20 Rx metformin 1,000 mg tablet 1,000 mg PO DAILY #90 tab 05/09/20 10/24/20 Rx montelukast 10 mg tablet 10 mg PO HS #90 tab 05/09/20 10/24/20 Rx omeprazole 20 mg capsule,delayed 20 mg PO DAILY #90 cap 05/09/20 10/24/20 Rx release simvastatin 40 mg tablet 40 mg PO HS #90 tab 05/09/20 10/24/20 Rx ropinirole 0.5 mg tablet 1.5 mg PO HS #270 tab 06/25/20 10/24/20 Rx Novolog Flexpen U-100 Insulin 100 See Rx Instructions SUBCUT TIDM 90 06/27/20 10/24/20 Rx unit/mL (3 mL) subcutaneous Days #3 box NS umeclidinium 62.5 mcg/actuation 62.5 mcg INHALATION DAILY #90 ea 07/05/20 10/24/20 Rx blister powder for inhalation Lantus Solostar U-100 Insulin 100 30 unit SUBCUT HS 90 Days #30 ml NS 09/25/20 10/24/20 Rx unit/mL (3 mL) subcutaneous pen cyanocobalamin (vitamin B-12) 1,000 mcg IM MONTHLY 10/24/20 10/24/20 History [Vitamin B-12] Past Med/Surg History Medical History (Updated 10/25/20 @ 03:52 by Len Hoskins MD) Asthma Carpal tunnel syndrome on right Diabetic peripheral neuropathy associated with type 2 diabetes mellitus Dyslipidemia Esophageal reflux First degree atrioventricular block HTN (hypertension) Hx of fracture of femur Iron deficiency anemia secondary to inadequate dietary iron intake Mediastinal adenopathy Multiple pulmonary nodules Obesity, morbid, BMI 40.0-49.9 Obstructive sleep apnea refuses CPAP Osteopenia Paroxysmal tachycardia Respiratory failure Restless leg syndrome Selective deficiency of IgG Syncope Type 2 diabetes mellitus, with long-term current use of insulin Vitamin D deficiency Surgical History H/O total hip arthroplasty left H/O: hysterectomy History of bronchoscopy (~11/2017) by Dr. Churchill followed by a mediastinoscopy and biopsy in December 2017 History of tonsillectomy and adenoidectomy Hx of cataract extraction bilateral. 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 Hx of cholecystectomy Hx of colonoscopy (~2015) Hx of eye surgery left Hx of total knee arthroplasty bilateral S/P appy Family History Father Cardiovascular disease Diabetes Asthma Brother Diabetes Cardiac disorder Mother Breast cancer Other Family history non-contributory Social History Smoking Status: Never smoker Second Hand Exposure: No; Hx Alcohol Use: No Hx Substance Use: No Preferred Language: German Communication Ability: Effective Frog Catcher Required: No Beliefs That Will Affect Care: None marital status: Current Living Situation: Spouse current occupational status: retired Feels Safe at Home: Yes Safety Concerns: Feels Safe At This Time Assistive Devices: Walker and Wheelchair Review of Systems Review of Systems: The patient denies chest pain, palpitations, shortness of breath, dyspnea on exertion, cough, sore throat, fevers, chills, sweats, nausea, vomiting, diarrhea , constipation, abdominal pain, pelvic pain, blood in urine or stool, dysuria, urinary frequency or urgency, loss of consciousness, rash, abnormal bruising or bleeding, generalized weakness, numbness or tingling in arms, generalized arthralgias or myalgias, back or neck pain, or night sweats. The review of systems is otherwise negative other than for that already noted above, and at least 10 systems have been reviewed. Physical Exam Physical Exam: The patient is awake, alert , well developed and well nourished, normocephalic and atraumatic, lying in bed and in no acute distress while lying still. HEENT--PERRL, EOMI, mucous membranes and oropharynx dry. Neck--supple. No JVD. No bruits. Thyroid normal, trachea midline, no adenopathy. Heart--normal S1 and S2. No murmurs, rubs or gallops. Lungs--clear bilaterally, no respiratory distress, no accessory muscle use. Abdomen--normal bowel sounds and soft. Nontender. Nondistended. Extremities--no cyanosis or clubbing. No edema. Dermatologic--normal skin turgor, normal color, no abnormal lymph nodes, no rash. Neurologic--cranial nerves II through XII grossly intact. Rheumatologic--limited exam Psychiatric--normal affect. Results & Data Results & Data ([facility]) Vital Signs (Past 12 Hours) Vital Signs Temp Pulse Pulse Resp BP BP Pulse Ox 10/25/20 01:00 88 22 113/58 L 98 10/25/20 00:39 95 H 20 126/53 L 92 10/25/20 00:00 92 H 17 97 10/24/20 23:31 89 22 111/51 L 95 10/24/20 23:01 86 21 103/62 97 10/24/20 23:00 87 20 97 10/24/20 22:30 85 19 125/71 100 10/24/20 22:16 98.8 F 80 16 112/54 L 100 10/24/20 22:00 78 18 112/54 L 100 10/24/20 21:53 98.8 F 83 21 96/76 L 99 Laboratory Results Laboratory Results WBC 5.33 K/uL (4.8-10.8) 10/24/20 23: RBC 4.09 M/uL (4.2-5.4) L 10/24/20 23:26 Hgb 11.4 g/dL (12.0-16.0) L 10/24/20 23:26 Hct 36.1 % (37-47) L 10/24/20 23:26 MCV 88.3 fL (80-100) 10/24/20 23: MCH 27.9 pg (25-34) 10/24/20 23: MCHC 31.6 g/dL (32-36) L 10/24/20 23: RDW Std Deviation 46.6 fL (36.4-46.3) H 10/24/20 23: RDW Coeff of Yevgeniy 14.3 % (11.5-14.5) 10/24/20 23: Plt Count 266 K/uL (130-400) 10/24/20 23: MPV 11.2 fL (7.4-10.4) H 10/24/20 23: Immature Gran % (Auto) 0.4 % 10/24/20 23: Neut % (Auto) 71.2 % 10/24/20 23: Lymph % (Auto) 18.8 % 10/24/20 23: Emmet % (Auto) 8.6 % 10/24/20 23: Eos % (Auto) 0.6 % 10/24/20 23: Baso % (Auto) 0.4 % 10/24/20: Neut # (Auto) 3.80 K/uL (1.4-6.5) 10/24/20: Lymph # (Auto) 1.00 K/uL (1.2-3.4) L 10/24/20: Emmet # (Auto) 0.46 K/uL (0.11-0.59) 10/24/20 23: Eos # (Auto) 0.03 K/uL (0-0.5) 10/24/20 23: Baso # (Auto) 0.02 K/uL (0-0.2) 10/24/20: Immature Gran # (Auto) 0.02 K/uL (0.00-0.02) 10/24/20 23: PT 9.8 Seconds (9.0-12.0) 10/24/20: INR 1.0 (0.9-1.1) 10/24/20 23: APTT 26.9 Seconds (21.0-31.0) 10/24/20: PTT Ratio 1.0 10/24/20 23: Sodium 143 mmol/L (136-145) 10/24/20 23: Potassium 4.3 mmol/L (3.5-5.1) 10/24/20 23: Chloride 108 mmol/L (98-107) H 10/24/20 23: Carbon Dioxide 33 mmol/L (21-32) H 10/24/20 23: Anion Gap 2.0 (3-11) L 10/24/20 23: BUN 17 mg/dl (7-18) 10/24/20 23:26 Creatinine 0.97 mg/dl (0.6-1.2) 10/24/20 23:26 Est Cr Clr Drug Dosing 59.7 ml/min 10/24/20 23:26 Est GFR ( Amer) 65.3 10/24/20 23:26 Est GFR (Non-Af Amer) 56.3 10/24/20 23:26 BUN/Creatinine Ratio 17.3 (10-20) 10/24/20 23:26 Glucose 143 mg/dl (70-99) H 10/24/20 23:26 POC Glucose 139 mg/dl (70-99) H 10/25/20 02:38 Calcium 8.4 mg/dl (8.5-10.1) L 10/24/20 23:26 Total Bilirubin 0.3 mg/dl (0.2-1) 10/24/20 23:26 AST 16 U/L (15-37) 10/24/20 23:26 ALT 20 U/L (12-78) 10/24/20 23:26 Alkaline Phosphatase 101 U/L (45-117) 10/24/20 23:26 Troponin I 0.980 ng/ml (0-0.045) H* 10/24/20 23:26 Total Protein 6.4 gm/dl (6.4-8.2) 10/24/20 23:26 Albumin 3.0 gm/dl (3.4-5.0) L 10/24/20 23:26 Globulin 3.4 gm/dl (2.5-4.0) 10/24/20 23:26 Albumin/Globulin Ratio 0.9 (0.9-2) 10/24/20 23:26 Urine Color Dark Yellow 10/25/20 00:04 Urine Appearance Cloudy (Clear) A 10/25/20 00:04 Urine pH 5.5 (4.5-7.5) 10/25/20 00:04 Ur Specific [place] 1.024 (1.000-1.030) 10/25/20 00:04 Urine Protein 2+ (Negative) H 10/25/20 00:04 Urine Glucose (UA) Negative (Negative) 10/25/20 00:04 Urine Ketones Trace (Negative) H 10/25/20 00:04 Urine Blood Negative (Negative) 10/25/20 00:04 Urine Nitrite Negative (Negative) 10/25/20 00:04 Urine Bilirubin 1+ (Negative) H 10/25/20 00:04 Urine Urobilinogen Negative (Negative) 10/25/20 00:04 Ur Leukocyte Esterase Trace (Negative) H 10/25/20 00:04 Urine WBC (Auto) 5-10 /hpf (0-5) H 10/25/20 00:04 Urine RBC (Auto) 5-10 /hpf (0-4) H 10/25/20 00:04 U Hyaline Cast (Auto) 10-30 /lpf (0-5) H 10/25/20 00:04 U Epithel Cells (Auto) >30 /lpf (0-5) H 10/25/20 00:04 Urine Bacteria (Auto) Negative (Negative) 10/25/20 00:04 Ur Renal Epithelial Cell Not Reportable 10/25/20 00:04 Granular Casts 1-5 /lpf (0) H 10/25/20 00:04 COVID-19 Eval Order Covid19 IDNow [facility] 10/24/20 23:25 SARS-CoV-2, RNA, NAAT POSITIVE (NEGATIVE) A* 10/24/20 23:25 Blood Type A Positive 10/24/20 23:26 Antibody Screen NEGATIVE 10/24/20 23:26 Code Status & VTE Plan Code Status Full code VTE Prophylaxis Plan VTE Prophylaxis will be ordered: Yes PG Care Time/CCT Total # of Minutes Spent Total Time Spent with Patient: Total time spent is greater than 50% in coordination of care (as documented) at patient's floor/unit and/or counseling patient: Coding Level of Care Code 28502 Initial Inpt Care Lvl 3 Diagnoses Periprosthetic fracture around internal prosthetic left hip joint M97.02XA Non-STEMI (non-ST elevated myocardial infarction) I21.4 Restless leg syndrome G25.81 Vitamin D deficiency E55.9 Type 2 diabetes mellitus, with long-term current use of insulin E11.9; Z79.4 Obstructive sleep apnea G47.33 Dyslipidemia E78.5 Esophageal reflux K21.9 Asthma J45.909
[2020-10-25] MEDS ORDERED: ONDANSETRON INJ 2 MG/ML 2 ML VIAL IV PRN (03:06)
[2020-10-25] MEDS ORDERED: ACETAMINOPHEN 325 MG TAB PO PRN (03:06)
[2020-10-25] MEDS ORDERED: MECLIZINE 12.5 MG TAB PO PRN (03:06)
[2020-10-25] MEDS ORDERED: MAGNESIUM HYDROXIDE SUSP 30 ML UDC PO PRN (03:40)
[2020-10-25] MEDS ORDERED: HYDROmorphone INJ 0.5 MG/0.5 ML SYR IV PRN (03:40)
[2020-10-25] MEDS ORDERED: bisacodyL 10 MG SUPP PR PRN (03:40)
[2020-10-25] MEDS ORDERED: NALOXONE HCL 0.4 MG/1 ML VIAL/CARP IV PRN (03:40)
[2020-10-25] MEDS ORDERED: dexAMETHasone 6 MG in SYRINGE 0 ML IV STA (04:10)
[2020-10-25] MEDS: HYDROCODONE/ACETAMOPHEN 5/325MG TAB PO PRN ×2 (04:51→19:53)
--- NOTE | 2020-10-25 05:28 | Emergency Department Note ---
History of Present Illness General Chief complaint: Knee Injury/Pain Stated complaint: FALL, KNEE PAIN, HYPOTENSION Time Seen by Provider: 10/24/20 22:28 Source: patient Mode of arrival: EMS Limitations: no limitations History of Present Illness Maximum Pain Intensity: 8 This patient is a 75-year-old female who presents to the emergency department for evaluation of a left leg injury and fall. Patient states that she has had diarrhea for the past few days. She received her first COVID-19 vaccine 2 days ago and attributed her diarrhea to this. She states that tonight, she felt like she had to have a bowel movement and became suddenly nauseous, and passed out on the way to the bathroom. Fall was unwitnessed. Patient is unsure if she struck her head. She complains primarily of pain to the left leg. She has a history of bilateral knee replacements as well as a left hip replacement secondary to a fracture. Patient rates her pain a 10/10. She does have a Pacemaker, denies any chest pain or shortness of breath. Home Medications Medication Instructions Recorded Confirmed Type Slow-Mag 71.5 mg PO BID 10/02/18 10/24/20 History aspirin 81 mg PO DAILY 10/02/18 10/24/20 History cholecalciferol (vitamin D3) 2,000 unit PO BID 10/02/18 10/24/20 History [Vitamin D3] fluticasone propion-salmeterol 1 puff INHALATION BID 10/02/18 10/24/20 History furosemide 20 mg PO DAILY PRN 10/02/18 10/24/20 History zoledronic dtaf-zgryfykh-fzmdc 5 mg IV USEASDIRECTD 01/11/19 10/24/20 History [Reclast] Dexcom G6 Replenishment Associate #1 ea NS 07/29/19 07/23/20 Rx Dexcom G6 Sensor #3 ea NS 07/29/19 07/23/20 Rx Dexcom G6 Transmitter #1 ea NS 07/29/19 07/23/20 Rx polyethylene glycol 3350 17 8.5 - 17 g PO DAILY #510 gm 08/03/19 10/24/20 Rx gram/dose oral powder multivitamin 1 tab PO DAILY 10/25/19 10/24/20 History blood sugar diagnostic #100 ea 11/24/19 07/23/20 Rx nystatin-triamcinolone 100,000 1 applic TOPICAL TID PRN #15 gm 11/24/19 10/24/20 Rx unit/gram-0.1 % topical ointment pen needle, diabetic 31 gauge x #500 box 11/24/19 07/23/20 Rx 5/16" albuterol sulfate 90 mcg/actuation 2 puff INHALATION Q4H PRN #18 gm 12/08/19 10/24/20 Rx aerosol inhaler mepolizumab 100 mg/mL subcutaneous 100 mg SQ Q4WK #1 ml 01/04/20 10/24/20 Rx auto-injector syringe with needle 1 mL 27 x 1/2" #1 ea 01/04/20 07/23/20 Rx ferrous sulfate 325 mg (65 mg 325 mg PO DAILY tab 01/30/20 10/24/20 History iron) tablet meclizine 12.5 mg tablet 12.5 mg PO TID PRN #30 tab 02/16/20 10/24/20 Rx ipratropium 0.5 mg-albuterol 3 mg See Rx Instructions .ROUTE 04/18/20 10/24/20 History (2.5 mg base)/3 mL nebulization .COMPLEX vial soln telmisartan 80 mg tablet 80 mg PO DAILY #90 tab 04/26/20 10/24/20 Rx metformin 1,000 mg tablet 1,000 mg PO DAILY #90 tab 05/09/20 10/24/20 Rx montelukast 10 mg tablet 10 mg PO HS #90 tab 05/09/20 10/24/20 Rx omeprazole 20 mg capsule,delayed 20 mg PO DAILY #90 cap 05/09/20 10/24/20 Rx release simvastatin 40 mg tablet 40 mg PO HS #90 tab 05/09/20 10/24/20 Rx ropinirole 0.5 mg tablet 1.5 mg PO HS #270 tab 06/25/20 10/24/20 Rx Novolog Flexpen U-100 Insulin 100 See Rx Instructions SUBCUT TIDM 90 06/27/20 10/24/20 Rx unit/mL (3 mL) subcutaneous Days #3 box NS umeclidinium 62.5 mcg/actuation 62.5 mcg INHALATION DAILY #90 ea 07/05/20 10/24/20 Rx blister powder for inhalation Lantus Solostar U-100 Insulin 100 30 unit SUBCUT HS 90 Days #30 ml NS 09/25/20 10/24/20 Rx unit/mL (3 mL) subcutaneous pen cyanocobalamin (vitamin B-12) 1,000 mcg IM MONTHLY 10/24/20 10/24/20 History Allergies Allergy/AdvReac Type Severity Reaction Status Date / Time No Known Allergies Allergy Verified 10/24/20 22:58 Past Med/Surg History Medical History (Updated 10/26/20 @ 00:05 by Emily Sierra) Asthma Carpal tunnel syndrome on right Diabetic peripheral neuropathy associated with type 2 diabetes mellitus Dyslipidemia Esophageal reflux First degree atrioventricular block HTN (hypertension) Hx of fracture of femur Iron deficiency anemia secondary to inadequate dietary iron intake Mediastinal adenopathy Multiple pulmonary nodules Obesity, morbid, BMI 40.0-49.9 Obstructive sleep apnea refuses CPAP Osteopenia Paroxysmal tachycardia Respiratory failure Restless leg syndrome Selective deficiency of IgG Syncope Type 2 diabetes mellitus, with long-term current use of insulin Vitamin D deficiency Surgical History H/O total hip arthroplasty left H/O: hysterectomy History of bronchoscopy (~11/2017) by Dr. Churchill followed by a mediastinoscopy and biopsy in December 2017 History of tonsillectomy and adenoidectomy Hx of cataract extraction bilateral. 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 Beliefs That Will Affect Care: None marital status: Current Living Situation: Spouse current occupational status: retired Feels Safe at Home: Yes Assistive Devices: Oxygen - Continuous Review of Systems A total of 10 systems reviewed and were otherwise negative Physical Exam Vital Signs Vital Signs - 24 hr 10/24/20 21:53 10/24/20 22:00 10/24/20 22:16 Temperature 37.1 C 37.1 C Temperature Source Oral Oral Pulse Rate 83 78 Pulse Rate [Left Apical] 80 Pulse Rate from SpO2 Sensor 82 81 Pulse Rhythm Regular Pulse Rhythm [Left Apical] Regular Pulse Strength Normal Pulse Strength [Left Apical] Normal Respiratory Rate 21 18 16 Respiratory Effort / Characteristics Non-Labored Spontaneous Respiratory Depth Normal Respiratory Pattern Regular Blood Pressure 96/76 L 112/54 L Blood Pressure [Right Arm] 112/54 L Blood Pressure Mean 82 73 Blood Pressure Mean [Right Arm] 73 Blood Pressure Position Lying Blood Pressure Position [Right Arm] Lying Pulse Oximetry 99 100 100 Oxygen Delivery Method Nasal Cannula Nasal Cannula Oxygen Flow Rate 4 2 Sepsis Recent Fever Within 48 Hours No Sepsis New/Unexplained Change in Mental Status N/A Sepsis Action Taken by Nursing No Action Required 10/24/20 22:30 10/24/20 23:00 10/24/20 23:01 Temperature Temperature Source Pulse Rate 85 87 86 Pulse Rate [Left Apical] Pulse Rate from SpO2 Sensor 85 84 Pulse Rhythm Pulse Rhythm [Left Apical] Pulse Strength Pulse Strength [Left Apical] Respiratory Rate 19 20 21 Respiratory Effort / Characteristics Respiratory Depth Respiratory Pattern Blood Pressure 125/71 103/62 Blood Pressure [Right Arm] Blood Pressure Mean 89 75 Blood Pressure Mean [Right Arm] Blood Pressure Position Blood Pressure Position [Right Arm] Pulse Oximetry 100 97 97 Oxygen Delivery Method Nasal Cannula Oxygen Flow Rate 2 Sepsis Recent Fever Within 48 Hours Sepsis New/Unexplained Change in Mental Status Sepsis Action Taken by Nursing 10/24/20 23:31 10/25/20 00:00 10/25/20 00:39 Temperature Temperature Source Pulse Rate 89 92 H 95 H Pulse Rate [Left Apical] Pulse Rate from SpO2 Sensor 86 Pulse Rhythm Pulse Rhythm [Left Apical] Pulse Strength Pulse Strength [Left Apical] Respiratory Rate 22 17 20 Respiratory Effort / Characteristics Respiratory Depth Respiratory Pattern Blood Pressure 111/51 L 126/53 L Blood Pressure [Right Arm] Blood Pressure Mean 71 77 Blood Pressure Mean [Right Arm] Blood Pressure Position Blood Pressure Position [Right Arm] Pulse Oximetry 95 97 92 Oxygen Delivery Method Oxygen Flow Rate Sepsis Recent Fever Within 48 Hours Sepsis New/Unexplained Change in Mental Status Sepsis Action Taken by Nursing 10/25/20 01:00 Temperature Temperature Source Pulse Rate 88 Pulse Rate [Left Apical] Pulse Rate from SpO2 Sensor 89 Pulse Rhythm Pulse Rhythm [Left Apical] Pulse Strength Pulse Strength [Left Apical] Respiratory Rate 22 Respiratory Effort / Characteristics Respiratory Depth Respiratory Pattern Blood Pressure 113/58 L Blood Pressure [Right Arm] Blood Pressure Mean 76 Blood Pressure Mean [Right Arm] Blood Pressure Position Blood Pressure Position [Right Arm] Pulse Oximetry 98 Oxygen Delivery Method Nasal Cannula Oxygen Flow Rate 2 Sepsis Recent Fever Within 48 Hours Sepsis New/Unexplained Change in Mental Status Sepsis Action Taken by Nursing VITALS: Vitals are noted on the nurse's note and reviewed by myself. GENERAL: This is a 75-year-old female, uncomfortable appearing, chronically unwell appearing. SKIN: The skin was without rashes, erythema, edema, or bruising. HEAD: Normocephalic atraumatic. EARS: External auditory canals clear, tympanic membranes pearly kaba without erythema or effusion bilaterally. EYES: Pupils equal round and reactive to light and accommodation. Extraocular movements intact. MOUTH: Mucous membranes moist. Tonsils are not enlarged. Pharynx without erythema or exudate. NECK: Supple without nuchal rigidity. No lymphadenopathy. HEART: Regular rate and rhythm without murmurs gallops or rubs. LUNGS: Clear to auscultation bilaterally without wheezes, rales or rhonchi. ABDOMEN: Positive bowel sounds x 4. Soft, nontender to palpation. No guarding or rebound tenderness. MUSCULOSKELETAL: Left leg is shortened and externally rotated. Tenderness to palpation along the left lateral hip. Dorsalis pedis pulse 2+. NEURO: Patient was alert and oriented to person place and time. Distal sensat ion intact. Course Consultations Consultation #1: Dr. Panda - [facility] Consultation #2: Dr. Hoskins [facility] hospitalist Administered Medications Discontinued Medications Hydrocodone Bitart/Acetaminophen (Hydrocodone/Acetamophen 5/325mg Tab) 1 tab PO Q4H PRN PRN Reason: MODERATE Pain (4,5,6) & Pre PT Stop: 11/08/20 03:39 Last Admin: 10/25/20 19:53 Dose: 1 tab Documented by: [id number] Admin: 10/25/20 04:51 Dose: 1 tab Documented by: [id number] Albuterol (Albut/Ipratrop 3mg/0.5mg Neb 3 Ml Vial) 3 ml NEB Q2H PRN PRN Reason: dyspnea Stop: 11/24/20 03:53 Last Admin: 10/25/20 19:39 Dose: 3 ml Documented by: [id number] Admin: 10/25/20 14:07 Dose: 3 ml Documented by: [id number] Admin: 10/25/20 07:47 Dose: 3 ml Documented by: [id number] Atorvastatin Calcium (Atorvastatin 40 Mg Tab) 40 mg PO QAM CRISTINA Stop: 11/24/20 08:59 Last Admin: 10/25/20 08:34 Dose: 40 mg Documented by: [id number] Famotidine (Famotidine 20 Mg Tab) 20 mg PO BID CRISTINA Stop: 11/24/20 20:59 Last Admin: 10/25/20 20:56 Dose: 20 mg Documented by: [id number] Fentanyl Citrate (Fentanyl Citrate 100 Mcg/2 Ml Vial) 100 mcg IV NOW STA Stop: 10/24/20 22:41 Last Admin: 10/24/20 23:08 Dose: 100 mcg Documented by: [id number] Ferrous Sulfate (Ferrous Sulfate 325 Mg Tab) 325 mg PO DAILY [facility] Stop: 11/24/20 08:59 Last Admin: 10/25/20 08:34 Dose: 325 mg Documented by: [id number] Fluticasone/Vilanterol (Fluticasone/Vilanterol 200/25mcg 14 Puffs/Inhaler) 1 puffs INH DAILY [facility] Stop: 11/24/20 08:59 Last Admin: 10/25/20 08:35 Dose: 1 puffs Documented by: [id number] Hydromorphone HCl (Hydromorphone Inj 0.5 Mg/0.5 Ml Syr) 0.25 mg IV Q3H PRN PRN Reason: Severe Pain Stop: 11/08/20 03:39 Last Admin: 10/25/20 20:50 Dose: 0.25 mg Documented by: [id number] Famotidine 20 mg/ Syringe 5 mls @ 2.5 mls/min IV Q12H CRISTINA Stop: 11/24/20 08:59 Last Admin: 10/25/20 08:40 Dose: 2.5 mls/min Documented by: [id number] Dexamethasone 6 mg/ Syringe 1.5 mls @ 1 mls/min IV NOW STA Stop: 10/25/20 04:11 Last Admin: 10/25/20 04:44 Dose: 1 mls/min Documented by: [id number] Sodium Chloride (Nss 1000ml) 500 mls @ 999 mls/hr IV .Q31M ONE Stop: 10/25/20 07:22 Last Infusion: 10/25/20 07:45 Dose: 0 mls/hr Documented by: [id number] Admin: 10/25/20 07:11 Dose: 999 mls/hr Documented by: [id number] Insulin Glargine (Insulin Glargine Solostar 100 Units/Ml 3 Ml Pen) 20 units SQ HS CRISTINA Stop: 11/24/20 20:59 Last Admin: 10/25/20 22:14 Dose: Not Given Documented by: [id number] Lorazepam (Lorazepam 0.5 Mg Tab) 0.5 mg PO Q8 PRN PRN Reason: Anxiety Stop: 11/24/20 15:48 Last Admin: 10/25/20 15:57 Dose: 0.5 mg Documented by: [id number] Magnesium Chloride (Magnesium Chloride 64mg Delayed Rel Tab) 64 mg PO BID CRISTINA Stop: 11/24/20 08:59 Last Admin: 10/25/20 20:55 Dose: 64 mg Documented by: [id number] Admin: 10/25/20 08:34 Dose: 64 mg Documented by: [id number] Montelukast Sodium (Montelukast Sodium 10 Mg Tablet) 10 mg PO HS CRISTINA Stop: 11/24/20 20:59 Last Admin: 10/25/20 20:53 Dose: 10 mg Documented by: [id number] Morphine Sulfate (Morphine Sulfate 4 Mg/Ml 1 Ml Carp\\Vial) 4 mg IV NOW STA Stop: 10/25/20 00:28 Last Admin: 10/25/20 00:47 Dose: 4 mg Documented by: [id number] Multivitamins (Multivitamin Tab) 1 tab PO DAILY CRISTINA Stop: 11/24/20 08:59 Last Admin: 10/25/20 08:34 Dose: 1 tab Documented by: [id number] Ropinirole HCl (Ropinirole Hcl 1 Mg Tablet) 1.5 mg PO HS CRISTINA Stop: 11/24/20 20:59 Last Admin: 10/25/20 20:54 Dose: 1.5 mg Documented by: [id number] Senna/Docusate Sodium (Docusate Sodium/Senna 50/8.6mg Tab) 2 tab PO HS CRISTINA Stop: 11/24/20 20:59 Last Admin: 10/25/20 22:13 Dose: Not Given Documented by: [id number] Umeclidinium [place] (Umeclidinium [place] 62.5mcg/Blister 7 Puffs/Inhaler) 1 puffs INH DAILY CRISTINA Stop: 11/24/20 08:59 Last Admin: 10/25/20 08:35 Dose: 1 puffs Documented by: [id number] Vitamin D (Cholecalciferol 1,000 Units 25 Mcg Tab) 2,000 units PO BID CRISTINA Stop: 11/24/20 08:59 Last Admin: 10/25/20 20:53 Dose: 2,000 units Documented by: [id number] Admin: 10/25/20 08:34 Dose: 2,000 units Documented by: [id number] Medical Decision Making Differential Diagnosis Vasovagal event, dehydration, infection, hypoglycemia, electrolyte abnormalities, cardiac sources, intracerebral event, pulmonary embolism, seizure, toxicologic, neurologic, as well as other pathologies. Home Medications Current Medication List: was personally reviewed by me Laboratory Data Attestation: I reviewed the patient's lab results. Result diagrams: 10/25/20 06:34 10/25/20 06:34 Lab Results 10/24/20 10/24/20 10/24/20 Range/Units 22:06 23:25 23:25 WBC (4.8-10.8) K/uL RBC (4.2-5.4) M/uL Hgb (12.0-16.0) g/dL Hct (37-47) % MCV (80-100) fL MCH (25-34) pg MCHC (32-36) g/dL RDW Std Deviation (36.4-46.3) fL RDW Coeff of Yevgeniy (11.5-14.5) % Plt Count (130-400) K/uL MPV (7.4-10.4) fL Immature Gran % (Auto) % Neut % (Auto) % Lymph % (Auto) % [place] % (Auto) % Eos % (Auto) % Baso % (Auto) % Neut # (Auto) (1.4-6.5) K/uL Lymph # (Auto) (1.2-3.4) K/uL [place] # (Auto) (0.11-0.59) K/uL Eos # (Auto) (0-0.5) K/uL Baso # (Auto) (0-0.2) K/uL Immature Gran # (Auto) (0.00-0.02) K/uL PT (9.0-12.0) Seconds INR (0.9-1.1) APTT (21.0-31.0) Seconds PTT Ratio Sodium (136-145) mmol/L Potassium (3.5-5.1) mmol/L Chloride (98-107) mmol/L Carbon Dioxide (21-32) mmol/L Anion Gap (3-11) BUN (7-18) mg/dl Creatinine (0.6-1.2) mg/dl Est Cr Clr Drug Dosing ml/min Est GFR ( Amer) Est GFR (Non-Af Amer) BUN/Creatinine Ratio (10-20) Glucose (70-99) mg/dl POC Glucose 128 H (70-99) mg/dl Calcium (8.5-10.1) mg/dl Total Bilirubin (0.2-1) mg/dl AST (15-37) U/L ALT (12-78) U/L Alkaline Phosphatase (45-117) U/L Troponin I (0-0.045) ng/ml Total Protein (6.4-8.2) gm/dl Albumin (3.4-5.0) gm/dl Globulin (2.5-4.0) gm/dl Albumin/Globulin Ratio (0.9-2) Urine Color Urine Appearance (Clear) Urine pH (4.5-7.5) Ur Specific [place] (1.000-1.030) Urine Protein (Negative) Urine Glucose (UA) (Negative) Urine Ketones (Negative) Urine Blood (Negative) Urine Nitrite (Negative) Urine Bilirubin (Negative) Urine Urobilinogen (Negative) Ur Leukocyte Esterase (Negative) Urine WBC (Auto) (0-5) /hpf Urine RBC (Auto) (0-4) /hpf U Hyaline Cast (Auto) (0-5) /lpf U Epithel Cells (Auto) (0-5) /lpf Urine Bacteria (Auto) (Negative) Ur Renal Epithelial Cell Granular Casts (0) /lpf COVID-19 Eval Order Covid19 IDNow [facility] SARS-CoV-2, RNA, NAAT POSITIVE A* (NEGATIVE) Blood Type Antibody Screen 10/24/20 10/24/20 10/24/20 Range/Units 23:26 23:26 23:26 WBC 5.33 (4.8-10.8) K/uL RBC 4.09 L (4.2-5.4) M/uL Hgb 11.4 L (12.0-16.0) g/dL Hct 36.1 L (37-47) % MCV 88.3 (80-100) fL MCH 27.9 (25-34) pg MCHC 31.6 L (32-36) g/dL RDW Std Deviation 46.6 H (36.4-46.3) fL RDW Coeff of Yevgeniy 14.3 (11.5-14.5) % Plt Count 266 (130-400) K/uL MPV 11.2 H (7.4-10.4) fL Immature Gran % (Auto) 0.4 % Neut % (Auto) 71.2 % Lymph % (Auto) 18.8 % [place] % (Auto) 8.6 % Eos % (Auto) 0.6 % Baso % (Auto) 0.4 % Neut # (Auto) 3.80 (1.4-6.5) K/uL Lymph # (Auto) 1.00 L (1.2-3.4) K/uL [place] # (Auto) 0.46 (0.11-0.59) K/uL Eos # (Auto) 0.03 (0-0.5) K/uL Baso # (Auto) 0.02 (0-0.2) K/uL Immature Gran # (Auto) 0.02 (0.00-0.02) K/uL PT 9.8 (9.0-12.0) Seconds INR 1.0 (0.9-1.1) APTT 26.9 (21.0-31.0) Seconds PTT Ratio 1.0 Sodium 143 (136-145) mmol/L Potassium 4.3 (3.5-5.1) mmol/L Chloride 108 H (98-107) mmol/L Carbon Dioxide 33 H (21-32) mmol/L Anion Gap 2.0 L (3-11) BUN 17 (7-18) mg/dl Creatinine 0.97 (0.6-1.2) mg/dl Est Cr Clr Drug Dosing 59.7 ml/min Est GFR ( Amer) 65.3 Est GFR (Non-Af Amer) 56.3 BUN/Creatinine Ratio 17.3 (10-20) Glucose 143 H (70-99) mg/dl POC Glucose (70-99) mg/dl Calcium 8.4 L (8.5-10.1) mg/dl Total Bilirubin 0.3 (0.2-1) mg/dl AST 16 (15-37) U/L ALT 20 (12-78) U/L Alkaline Phosphatase 101 (45-117) U/L Troponin I 0.980 H* (0-0.045) ng/ml Total Protein 6.4 (6.4-8.2) gm/dl Albumin 3.0 L (3.4-5.0) gm/dl Globulin 3.4 (2.5-4.0) gm/dl Albumin/Globulin Ratio 0.9 (0.9-2) Urine Color Urine Appearance (Clear) Urine pH (4.5-7.5) Ur Specific [place] (1.000-1.030) Urine Protein (Negative) Urine Glucose (UA) (Negative) Urine Ketones (Negative) Urine Blood (Negative) Urine Nitrite (Negative) Urine Bilirubin (Negative) Urine Urobilinogen (Negative) Ur Leukocyte Esterase (Negative) Urine WBC (Auto) (0-5) /hpf Urine RBC (Auto) (0-4) /hpf U Hyaline Cast (Auto) (0-5) /lpf U Epithel Cells (Auto) (0-5) /lpf Urine Bacteria (Auto) (Negative) Ur Renal Epithelial Cell Granular Casts (0) /lpf COVID-19 Eval Order SARS-CoV-2, RNA, NAAT (NEGATIVE) Blood Type Antibody Screen 10/24/20 10/25/20 Range/Units 23:26 00:04 WBC (4.8-10.8) K/uL RBC (4.2-5.4) M/uL Hgb (12.0-16.0) g/dL Hct (37-47) % MCV (80-100) fL MCH (25-34) pg MCHC (32-36) g/dL RDW Std Deviation (36.4-46.3) fL RDW Coeff of Yevgeniy (11.5-14.5) % Plt Count (130-400) K/uL MPV (7.4-10.4) fL Immature Gran % (Auto) % Neut % (Auto) % Lymph % (Auto) % [place] % (Auto) % Eos % (Auto) % Baso % (Auto) % Neut # (Auto) (1.4-6.5) K/uL Lymph # (Auto) (1.2-3.4) K/uL [place] # (Auto) (0.11-0.59) K/uL Eos # (Auto) (0-0.5) K/uL Baso # (Auto) (0-0.2) K/uL Immature Gran # (Auto) (0.00-0.02) K/uL PT (9.0-12.0) Seconds INR (0.9-1.1) APTT (21.0-31.0) Seconds PTT Ratio Sodium (136-145) mmol/L Potassium (3.5-5.1) mmol/L Chloride (98-107) mmol/L Carbon Dioxide (21-32) mmol/L Anion Gap (3-11) BUN (7-18) mg/dl Creatinine (0.6-1.2) mg/dl Est Cr Clr Drug Dosing ml/min Est GFR ( Amer) Est GFR (Non-Af Amer) BUN/Creatinine Ratio (10-20) Glucose (70-99) mg/dl POC Glucose (70-99) mg/dl Calcium (8.5-10.1) mg/dl Total Bilirubin (0.2-1) mg/dl AST (15-37) U/L ALT (12-78) U/L Alkaline Phosphatase (45-117) U/L Troponin I (0-0.045) ng/ml Total Protein (6.4-8.2) gm/dl Albumin (3.4-5.0) gm/dl Globulin (2.5-4.0) gm/dl Albumin/Globulin Ratio (0.9-2) Urine Color Dark Yellow Urine Appearance Cloudy A (Clear) Urine pH 5.5 (4.5-7.5) Ur Specific [place] 1.024 (1.000-1.030) Urine Protein 2+ H (Negative) Urine Glucose (UA) Negative (Negative) Urine Ketones Trace H (Negative) Urine Blood Negative (Negative) Urine Nitrite Negative (Negative) Urine Bilirubin 1+ H (Negative) Urine Urobilinogen Negative (Negative) Ur Leukocyte Esterase Trace H (Negative) Urine WBC (Auto) 5-10 H (0-5) /hpf Urine RBC (Auto) 5-10 H (0-4) /hpf U Hyaline Cast (Auto) 10-30 H (0-5) /lpf U Epithel Cells (Auto) >30 H (0-5) /lpf Urine Bacteria (Auto) Negative (Negative) Ur Renal Epithelial Cell Not Reportable Granular Casts 1-5 H (0) /lpf COVID-19 Eval Order SARS-CoV-2, RNA, NAAT (NEGATIVE) Blood Type A Positive Antibody Screen NEGATIVE Imaging Data Attestation: I personally reviewed and interpreted this imaging study as follows: ECG Data Attestation: I personally reviewed and interpreted this ECG as follows: Indication: + syncope Rate (beats per minute): 83 Rhythm: + normal sinus ECG Intervals/blocks: + First degree AV block and + Right Bundle branch block ECG ST segments: + T-wave inversions Change: the following changes noted (T-wave inversions more pronounced anterior leads) MDM Narrative Continuous quality assurance monitor body: Order was placed for continuous quality assurance monitor body. Patient was placed on the quality assurance monitor body. Patient was noted to be in normal sinus rhythm at an initial rate of 85 bpm. The patient is a 75-year-old female who presents today for evaluation of left leg pain after a syncopal episode and fall. Patient found to have a left periprosthetic hip fracture. Patient sustained a syncopal episode which I suspect was likely a vasovagal event given her nausea and diarrhea or possibly secondary to dehydration. Patient's pacemaker was interrogated and no events were found. Patient was found to have a mildly elevated troponin on lab testing. Additionally, patient's COVID-19 test was positive. She was treated with fentanyl and morphine for pain in the left leg. Orthopedics was consulted and will evaluate her tomorrow for the hip fracture. The [facility] hospitalist service was consulted and agreed to evaluate the patient for further care. Attending Attestation: I Erickson Nick MD independently saw and evaluated this patient and agree with history and physical is otherwise documented by the physician child welfare assistant. See their note for full details. Patient resting in bed with intact sensation in the left leg/foot; pain around the L hip and thigh. XR with periprosthetic fr acture and incidentally COVID + ( patient did just receive recent 1st vaccine dose). Ortho and hospitalist consulted for further care. Impression & Plan Periprosthetic fracture around internal prosthetic left hip joint, Syncope, Non-STEMI (non-ST elevated myocardial infarction), Lab test positive for detection of COVID-19 virus Discharge Plan Visit Data Chief Complaint: Knee Injury/Pain Stated Complaint: FALL, KNEE PAIN, HYPOTENSION ED Provider: Erickson Nick ED Midlevel Provider: Anne Weir Discharge Problem: Periprosthetic fracture around internal prosthetic left hip joint, Syncope, Non-STEMI (non-ST elevated myocardial infarction), Lab test positive for detection of COVID-19 virus Patient Disposition: Admitted As Inpatient Condition: Fair Discharge Instructions Interventions: ED Discharge Assessment Last Done: 10/25/20 01:58 Discharge Problem: Periprosthetic fracture around internal prosthetic left hip joint Qualifiers: Encounter type: initial encounter Qualified Code(s): M97.02XA - Periprosthetic fracture around internal prosthetic left hip joint, initial encounter Syncope Qualifiers: Syncope type: unspecified Qualified Code(s): R55 - Syncope and collapse
--- NOTE | 2020-10-25 06:36 | XRay Report ---
XR chest 1V portable HISTORY: 75 years-old Female fall, syncope acute chest trauma status post fall COMPARISON: Chest radiographs 06/05/2020, chest CT 06/13/2020 TECHNIQUE: Portable AP view of the chest FINDINGS: Cardiac silhouette is enlarged. Left subclavian pacer. Mild chronic interstitial coarsening. No pneum othorax, pleural effusion, airspace consolidation or overt pulmonary edema. Calcified granulomata of the right lung base redemonstrated. The previously noted solid pulmonary nodules described on compari son chest CT are not definitively seen. IMPRESSION: Cardiomegaly without acute process. ACT 112: Negative or not required by law. The above report was generated using voice recognition software. It may contain grammatical, syntax o r spelling errors. Electronically signed by: Elliott Mckay M.D. 10/25/2020 6:35 AM
--- NOTE | 2020-10-25 06:42 | XRay Report ---
XR hip LT min 2V, XR femur LT 2V routine HISTORY: 75 years-old Female left hip injury, fall acute left hip and femur pain status post fall COMPARISON: None TECHNIQUE: 2 views of the left hip and 2 views of the left femur FINDINGS: HIP: Left hip total joint arthroplasty without dislocation. Demineralized appearance of the bones. There i s an acute comminuted periprosthetic fracture involving the subtrochanteric proximal femur with media l fracture fragment contiguous with the lesser trochanter demonstrating apex superior lateral angulat ion with 3.5 cm medial displacement. The lateral fracture fragment is contiguous with the greater tro chanter and is displaced laterally 1.6 cm. FEMUR: Plate and screw fusion of the mid to distal femur without evidence of hardware complication. Total arnulfo int arthroplasty with patellar resurfacing. Demineralized appearance of the bones. IMPRESSION: 1. Left hip total joint arthroplasty with acute comminuted and displaced periprosthetic subtrochanter ic fracture as above. 2. ORIF changes of the mid and distal femur with left knee total joint arthroplasty. ACT 112: Negative or not required by law. The above report was generated using voice recognition software. It may contain grammatical, syntax o r spelling errors. Electronically signed by: Elliott Mckay M.D. 10/25/2020 6:40 AM
[2020-10-25] MEDS ORDERED: SODIUM CHLORIDE 0.9% 1000ML 500 ML IV ONE (06:52)
[2020-10-25 07:06] LABS: Basophils # (auto) 0.01 K/uL (0-0.2); Basophils % (auto) 0.2 %; Hematocrit (blood only) 33.2 % (37-47); Hemoglobin 10.5 g/dL (12.0-16.0); Immature Granulocytes # (auto) 0.02 K/uL (0.00-0.02); Immature Granulocytes % (auto) 0.3 %; Lymphocytes # (auto) 0.55 K/uL (1.2-3.4); Lymphocytes % (auto) 9.5 %; Mean Corpuscular Hemoglobin 27.8 pg (25-34); Mean Corpuscular Hgb Conc 31.6 g/dL (32-36); Mean Corpuscular Volume 87.8 fL (80-100); Mean Platelet Volume 11.3 fL (7.4-10.4); Monocytes % (auto) 5.2 %; Neutrophils # (auto) 4.93 K/uL (1.4-6.5); Neutrophils % (auto) 84.8 %; Platelet Count 251 K/uL (130-400); RDW Coefficient of Variation 14.4 % (11.5-14.5); RDW Standard Deviation 46.3 fL (36.4-46.3); Red Blood Count 3.78 M/uL (4.2-5.4); White Blood Count 5.81 K/uL (4.8-10.8)
--- NOTE | 2020-10-25 07:11 | CT Scan Report ---
CT head/brain wo con CLINICAL HISTORY: 75 years-old Female with fall, syncope. Acute head injury status post fall TECHNIQUE: Multiple axial CT images of the head were obtained without contrast. A dose lowering tech nique was utilized adhering to the principles of ALARA. CT DOSE: 687.98 mGy.cm COMPARISON: None. FINDINGS: Motion degraded exam. No acute intracranial hemorrhage, midline shift, intracranial mass, hydrocephal us, territorial ischemia or abnormal extra-axial collection. Age-related involutional changes with ch ronic microvascular ischemic disease and ex vacuo ventriculomegaly. Cerebral vascular calcifications are noted. Chronic appearing tiny lacunar infarct of the left lentiform nucleus. No acute calvarial fracture. Metopic suture. Prior left-sided lens replacement. Prosthetic material n oted within the right globe with scleral band. The paranasal sinuses, mastoid air cells, and middle ear cavities are clear. IMPRESSION: Motion degraded exam without acute intracranial abnormality. ACT 112: Negative or not required by law. The above report was generated using voice recognition software. It may contain grammatical, syntax o r spelling errors. Electronically signed by: Elliott Mckay M.D. 10/25/2020 7:10 AM
[2020-10-25 07:39] LABS: Albumin Level 2.9 gm/dl (3.4-5.0); BUN Creatinine Ratio 19.3 (10-20); Calcium 8.5 mg/dl (8.5-10.1); Creatinine Clr Calc Pharmacy 50.9 ml/min; Est GFR (African American) 56.1; Est GFR (Non-African American) 48.4
[2020-10-25 07:41] LABS: Albumin Globulin Ratio 0.9 (0.9-2); Bilirubin,Total 0.3 mg/dl (0.2-1); Globulin 3.3 gm/dl (2.5-4.0); Total Protein 6.2 gm/dl (6.4-8.2); Troponin I 0.447 ng/ml (0-0.045)
[2020-10-25] MEDS: ALBUT/IPRATROP 3MG/0.5MG NEB 3 ML VIAL NEB PRN ×3 (07:47→19:39)
[2020-10-25] MEDS: MAGNESIUM CHLORIDE 64MG DELAYED REL TAB PO SCH ×2 (08:34→20:55)
[2020-10-25] MEDS: CHOLECALCIFEROL 1,000 UNITS 25 MCG TAB PO SCH ×2 (08:34→20:53)
[2020-10-25] MEDS ORDERED: FLUTICASONE/VILANTEROL 200/25MCG 14 PUFFS/INHALER INH SCH (09:00)
[2020-10-25] MEDS ORDERED: MULTIVITAMIN TAB PO SCH (09:00)
[2020-10-25] MEDS ORDERED: UMECLIDINIUM BROMIDE 62.5MCG/BLISTER 7 PUFFS/INHALER INH SCH (09:00)
[2020-10-25] MEDS ORDERED: PANTOprazole 40 MG TAB PO SCH (09:00)
[2020-10-25] MEDS ORDERED: FERROUS SULFATE 325 MG TAB PO SCH (09:00)
[2020-10-25] MEDS ORDERED: ATORVASTATIN 40 MG TAB PO SCH (09:00)
[2020-10-25] MEDS ORDERED: ASPIRIN 81 MG ECTAB PO SCH (09:00)
[2020-10-25] MEDS ORDERED: FAMOTIDINE 20 MG in SYRINGE 3 ML IV SCH (09:00)
--- NOTE | 2020-10-25 12:42 | Cardiology Consultation ---
Date of Consultation October 25, 2020 Assessment & Plan (1) Syncope and collapse: (2) Elevated troponin: (3) Cardiac pacemaker: (4) High-grade atrioventricular block: (5) PRIDE (dyspnea on exertion): (6) Preop cardiovascular exam: ASSESSMENT/PLAN: 1. Syncope: Based on her description, she had a syncopal event that led to her left hip fracture. Etiology likely orthostatic hypotension versus vasovagal as she had the urge to have a bowel movement but had been laying in bed and got up quickly. No arrhythmia noted on pacemaker interrogation. Recommend adequate hydration. 2. Elevated troponin: She did not present with acute coronary syndrome. Elevated troponin could be due to the possibility of hypotension during her event as above if it was driven by vasovagal or orthostatic process. Cannot exclude mild myocarditis from COVID 19 infection. Ischemic evaluation is not recommended at this time, prior to her hip surgery. 3. High-grade AV block s/p dual chamber pacemaker: Follows with EP. No reported issues with pacemaker during interrogation. 4. Dyspnea with exertion: Chronic process and follows with Dr. Beach for significant asthma. 5. Preop cardiac assessment: Given elevated troponin, may be higher risk for hip surgery however did not present with acute coronary syndrome. Was notified by Dr. Gonzales of the primary hospitalist service that she will be transferred from this facility to another for her surgery and orthopedic evaluation. She will likely undergo further evaluation there as well. She had an echocardiogram done here which will be formally evaluated. 6. Disposition: When discharged from outside facility, she can continue to follow with Dr. Mariano for her pacemaker care. Patient care discussed with Dr. Gonzales of the primary hospitalist service. Thank you for allowing me to participate in the care of your patient. Please call for any other questions or concerns. Sincerely, Ravinder Keith M.D. History of Present Illness Reason for Consultation: Elevated troponin and preoperative cardiac assessment Requesting Physician: Dr. Hoskins Attending Physician: Mak Gonzales DO History of Present Illness Mrs. 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 Mariano), diabetic peripheral neuropathy, type 2 diabetes, sleep apnea, hypertension, dyslipidemia, and severe asthma on home supplemental oxygen, 2 L per nasal cannula. Her primary fire safety inspector is Dr. Mariano. For the past 5 or 6 days, she has been having symptoms of diarrhea, nausea, and shortness of breath. She underwent vaccination for COVID-19 4 days ago but tested positive for COVID-19 on 10/24/2020 after falling at home. According to H&P, her fall was mechanical however she states that she was laying in bed and felt the need to have a bowel movement. She had been having diarrhea often, with coughing and other movements. She got out of bed and remember seeing stars, recalling that she was falling but does not recall hitting the floor. The next thing she remembered, she had family with her and had left hip pain. She admits that she has not been keeping up with hydration sufficiently for the past several days of diarrhea. She has nausea but no vomiting. She denies chest pain. She has chronic shortness of breath. She denies edema, melena, hematochezia, hematuria, or other bleeding. She denies palpitations. Her pacemaker was interrogated in the emergency department without obvious arrhythmia. She had been having syncope and near-syncope in the past but that had resolved with pacemaker placement on 03/06/2020. Currently, she denies chest pain or shortness of breath. She is on less oxygen here than she is at home. She does have left hip pain. Review of systems: As above. Review of systems otherwise negative/unremarkable. Family history: CAD. Social history: She lives at home with her . She denies tobacco, alcohol, or drug abuse. She was alone in her room. Allergies Allergy/AdvReac Type Severity Reaction Status Date / Time No Known Allergies Allergy Verified 10/24/20 22:58 Home Medications Medication Instructions Recorded Confirmed Type Slow-Mag 71.5 mg PO BID 10/02/18 10/24/20 History aspirin 81 mg PO DAILY 10/02/18 10/24/20 History cholecalciferol (vitamin D3) 2,000 unit PO BID 10/02/18 10/24/20 History [Vitamin D3] fluticasone propion-salmeterol 1 puff INHALATION BID 10/02/18 10/24/20 History furosemide 20 mg PO DAILY PRN 10/02/18 10/24/20 History zoledronic uhmc-[id number]-hvvcf 5 mg IV USEASDIRECTD 01/11/19 10/24/20 History [Reclast] Dexcom G6 Edi Architect #1 ea NS 07/29/19 07/23/20 Rx Dexcom G6 Sensor #3 ea NS 07/29/19 07/23/20 Rx Dexcom G6 Transmitter #1 ea NS 07/29/19 07/23/20 Rx polyethylene glycol 3350 17 8.5 - 17 g PO DAILY #510 gm 08/03/19 10/24/20 Rx gram/dose oral powder multivitamin 1 tab PO DAILY 10/25/19 10/24/20 History blood sugar diagnostic #100 ea 11/24/19 07/23/20 Rx nystatin-triamcinolone 100,000 1 applic TOPICAL TID PRN #15 gm 11/24/19 10/24/20 Rx unit/gram-0.1 % topical ointment pen needle, diabetic 31 gauge x #500 box 11/24/19 07/23/20 Rx 5/16" albuterol sulfate 90 mcg/actuation 2 puff INHALATION Q4H PRN #18 gm 12/08/19 10/24/20 Rx aerosol inhaler mepolizumab 100 mg/mL subcutaneous 100 mg SQ Q4WK #1 ml 01/04/20 10/24/20 Rx auto-injector syringe with needle 1 mL 27 x 1/2" #1 ea 01/04/20 07/23/20 Rx ferrous sulfate 325 mg (65 mg 325 mg PO DAILY tab 01/30/20 10/24/20 History iron) tablet meclizine 12.5 mg tablet 12.5 mg PO TID PRN #30 tab 02/16/20 10/24/20 Rx ipratropium 0.5 mg-albuterol 3 mg See Rx Instructions .ROUTE 04/18/20 10/24/20 History (2.5 mg base)/3 mL nebulization .COMPLEX vial soln telmisartan 80 mg tablet 80 mg PO DAILY #90 tab 04/26/20 10/24/20 Rx metformin 1,000 mg tablet 1,000 mg PO DAILY #90 tab 05/09/20 10/24/20 Rx montelukast 10 mg tablet 10 mg PO HS #90 tab 05/09/20 10/24/20 Rx omeprazole 20 mg capsule,delayed 20 mg PO DAILY #90 cap 05/09/20 10/24/20 Rx release simvastatin 40 mg tablet 40 mg PO HS #90 tab 05/09/20 10/24/20 Rx ropinirole 0.5 mg tablet 1.5 mg PO HS #270 tab 06/25/20 10/24/20 Rx Novolog Flexpen U-100 Insulin 100 See Rx Instructions SUBCUT TIDM 90 06/27/20 10/24/20 Rx unit/mL (3 mL) subcutaneous Days #3 box NS umeclidinium 62.5 mcg/actuation 62.5 mcg INHALATION DAILY #90 ea 07/05/20 10/24/20 Rx blister powder for inhalation Lantus Solostar U-100 Insulin 100 30 unit SUBCUT HS 90 Days #30 ml NS 09/25/20 10/24/20 Rx unit/mL (3 mL) subcutaneous pen cyanocobalamin (vitamin B-12) 1,000 mcg IM MONTHLY 10/24/20 10/24/20 History [Vitamin B-12] Patient History Medical History (Updated 10/25/20 @ 12:53 by Minh Keith MD) Asthma Carpal tunnel syndrome on right Diabetic peripheral neuropathy associated with type 2 diabetes mellitus Dyslipidemia Esophageal reflux First degree atrioventricular block HTN (hypertension) Hx of fracture of femur Iron deficiency anemia secondary to inadequate dietary iron intake Mediastinal adenopathy Multiple pulmonary nodules Obesity, morbid, BMI 40.0-49.9 Obstructive sleep apnea refuses CPAP Osteopenia Paroxysmal tachycardia Respiratory failure Restless leg syndrome Selective deficiency of IgG Syncope Type 2 diabetes mellitus, with long-term current use of insulin Vitamin D deficiency Surgical History H/O total hip arthroplasty left H/O: hysterectomy History of bronchoscopy (~11/2017) by Dr. Churchill followed by a mediastinoscopy and biopsy in December 2017 History of tonsillectomy and adenoidectomy Hx of cataract extraction bilateral. 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 Hx of cholecystectomy Hx of colonoscopy (~2015) Hx of eye surgery left Hx of total knee arthroplasty bilateral S/P appy Family History Father Cardiovascular disease Diabetes Asthma Brother Diabetes Cardiac disorder Mother Breast cancer Other Family history non-contributory Social History Smoking Status: Never smoker Second Hand Exposure: No; Hx Alcohol Use: No Hx Substance Use: No Preferred Language: Lao Communication Ability: Effective Newspaper Or Periodical Editor Required: No Beliefs That Will Affect Care: None marital status: Current Living Situation: Spouse current occupational status: retired Feels Safe at Home: Yes Safety Concerns: Feels Safe At This Time Assistive Devices: Oxygen - Continuous Physical Exam Physical Exam: Gen.: No acute distress. Alert and oriented. HEENT: Anicteric sclera. Neck: No JVD. No bruits. Normal carotid upstrokes bilaterally. Cardiac: PMI was nonpalpable. No ventricular heave. Regular rate and rhythm. Normal S1-S2. 1/6 systolic murmur. No rubs, or gallops. Pulmonary: Clear to auscultation bilaterally without wheezes, rales, or rhonchi. Abdomen: Soft, nontender, nondistended, with normoactive bowel sounds. No bruits noted. Extremities: 2+ radial pulses bilaterally. 2+ posterior tibialis pulses bilaterally. No pitting edema or cyanosis. Psychiatric: Affect appears appropriate. Results & Data ([facility]) Vital Signs (Past 12 Hours) Vital Signs Temp Pulse Pulse Resp BP BP Pulse Ox 10/25/20 11:59 37.2 C 86 18 125/55 L 96 10/25/20 07:47 87 18 97 10/25/20 07:17 37.1 C 91 H 22 113/76 96 10/25/20 02:30 98 H 10/25/20 02:20 36.9 C 98 H 18 108/67 97 10/25/20 01:58 90 18 101/45 L 97 10/25/20 01:00 88 22 113/58 L 98 Laboratory Results Laboratory Results - last 24 hr 10/24/20 10/24/20 10/24/20 22:06 23:25 23:25 WBC RBC Hgb Hct MCV MCH MCHC RDW Std Deviation RDW Coeff of Yevgeniy Plt Count MPV Immature Gran % (Auto) Neut % (Auto) Lymph % (Auto) Arthur % (Auto) Eos % (Auto) Baso % (Auto) Neut # (Auto) Lymph # (Auto) Arthur # (Auto) Eos # (Auto) Baso # (Auto) Immature Gran # (Auto) PT INR APTT PTT Ratio Sodium Potassium Chloride Carbon Dioxide Anion Gap BUN Creatinine Est Cr Clr Drug Dosing Est GFR ( Amer) Est GFR (Non-Af Amer) BUN/Creatinine Ratio Glucose POC Glucose 128 H Calcium Total Bilirubin AST ALT Alkaline Phosphatase Troponin I Total Protein Albumin Globulin Albumin/Globulin Ratio Urine Color Urine Appearance Urine pH Ur Specific Underwood Urine Protein Urine Glucose (UA) Urine Ketones Urine Blood Urine Nitrite Urine Bilirubin Urine Urobilinogen Ur Leukocyte Esterase Urine WBC (Auto) Urine RBC (Auto) U Hyaline Cast (Auto) U Epithel Cells (Auto) Urine Bacteria (Auto) Ur Renal Epithelial Cell Granular Casts COVID-19 Eval Order Covid19 IDNow [facility] SARS-CoV-2, RNA, NAAT POSITIVE A* Blood Type Antibody Screen 10/24/20 10/24/20 10/24/20 23:26 23:26 23:26 WBC 5.33 RBC 4.09 L Hgb 11.4 L Hct 36.1 L MCV 88.3 MCH 27.9 MCHC 31.6 L RDW Std Deviation 46.6 H RDW Coeff of Yevgeniy 14.3 Plt Count 266 MPV 11.2 H Immature Gran % (Auto) 0.4 Neut % (Auto) 71.2 Lymph % (Auto) 18.8 Arthur % (Auto) 8.6 Eos % (Auto) 0.6 Baso % (Auto) 0.4 Neut # (Auto) 3.80 Lymph # (Auto) 1.00 L Arthur # (Auto) 0.46 Eos # (Auto) 0.03 Baso # (Auto) 0.02 Immature Gran # (Auto) 0.02 PT 9.8 INR 1.0 APTT 26.9 PTT Ratio 1.0 Sodium 143 Potassium 4.3 Chloride 108 H Carbon Dioxide 33 H Anion Gap 2.0 L BUN 17 Creatinine 0.97 Est Cr Clr Drug Dosing 59.7 Est GFR ( Amer) 65.3 Est GFR (Non-Af Amer) 56.3 BUN/Creatinine Ratio 17.3 Glucose 143 H POC Glucose Calcium 8.4 L Total Bilirubin 0.3 AST 16 ALT 20 Alkaline Phosphatase 101 Troponin I 0.980 H* Total Protein 6.4 Albumin 3.0 L Globulin 3.4 Albumin/Globulin Ratio 0.9 Urine Color Urine Appearance Urine pH Ur Specific Underwood Urine Protein Urine Glucose (UA) Urine Ketones Urine Blood Urine Nitrite Urine Bilirubin Urine Urobilinogen Ur Leukocyte Esterase Urine WBC (Auto) Urine RBC (Auto) U Hyaline Cast (Auto) U Epithel Cells (Auto) Urine Bacteria (Auto) Ur Renal Epithelial Cell Granular Casts COVID-19 Eval Order SARS-CoV-2, RNA, NAAT Blood Type Antibody Screen 10/24/20 10/25/20 10/25/20 23:26 00:04 02:38 WBC RBC Hgb Hct MCV MCH MCHC RDW Std Deviation RDW Coeff of Yevgeniy Plt Count MPV Immature Gran % (Auto) Neut % (Auto) Lymph % (Auto) Arthur % (Auto) Eos % (Auto) Baso % (Auto) Neut # (Auto) Lymph # (Auto) Arthur # (Auto) Eos # (Auto) Baso # (Auto) Immature Gran # (Auto) PT INR APTT PTT Ratio Sodium Potassium Chloride Carbon Dioxide Anion Gap BUN Creatinine Est Cr Clr Drug Dosing Est GFR ( Amer) Est GFR (Non-Af Amer) BUN/Creatinine Ratio Glucose POC Glucose 139 H Calcium Total Bilirubin AST ALT Alkaline Phosphatase Troponin I Total Protein Albumin Globulin Albumin/Globulin Ratio Urine Color Dark Yellow Urine Appearance Cloudy A Urine pH 5.5 Ur Specific Underwood 1.024 Urine Protein 2+ H Urine Glucose (UA) Negative Urine Ketones Trace H Urine Blood Negative Urine Nitrite Negative Urine Bilirubin 1+ H Urine Urobilinogen Negative Ur Leukocyte Esterase Trace H Urine WBC (Auto) 5-10 H Urine RBC (Auto) 5-10 H U Hyaline Cast (Auto) 10-30 H U Epithel Cells (Auto) >30 H Urine Bacteria (Auto) Negative Ur Renal Epithelial Cell Not Reportable Granular Casts 1-5 H COVID-19 Eval Order SARS-CoV-2, RNA, NAAT Blood Type A Positive Antibody Screen NEGATIVE 10/25/20 10/25/20 10/25/20 06:34 06:34 07:54 WBC 5.81 RBC 3.78 L Hgb 10.5 L Hct 33.2 L MCV 87.8 MCH 27.8 MCHC 31.6 L RDW Std Deviation 46.3 RDW Coeff of Yevgeniy 14.4 Plt Count 251 MPV 11.3 H Immature Gran % (Auto) 0.3 Neut % (Auto) 84.8 Lymph % (Auto) 9.5 Arthur % (Auto) 5.2 Eos % (Auto) 0.0 Baso % (Auto) 0.2 Neut # (Auto) 4.93 Lymph # (Auto) 0.55 L Arthur # (Auto) 0.30 Eos # (Auto) 0.00 Baso # (Auto) 0.01 Immature Gran # (Auto) 0.02 PT INR APTT PTT Ratio Sodium 139 Potassium 5.0 D Chloride 107 Carbon Dioxide 27 Anion Gap 5.0 BUN 21 H Creatinine 1.10 Est Cr Clr Drug Dosing 50.9 Est GFR ( Amer) 56.1 Est GFR (Non-Af Amer) 48.4 BUN/Creatinine Ratio 19.3 Glucose 148 H POC Glucose 153 H Calcium 8.5 Total Bilirubin 0.3 AST 15 ALT 20 Alkaline Phosphatase 92 Troponin I 0.447 H* Total Protein 6.2 L Albumin 2.9 L Globulin 3.3 Albumin/Globulin Ratio 0.9 Urine Color Urine Appearance Urine pH Ur Specific Underwood Urine Protein Urine Glucose (UA) Urine Ketones Urine Blood Urine Nitrite Urine Bilirubin Urine Urobilinogen Ur Leukocyte Esterase Urine WBC (Auto) Urine RBC (Auto) U Hyaline Cast (Auto) U Epithel Cells (Auto) Urine Bacteria (Auto) Ur Renal Epithelial Cell Granular Casts COVID-19 Eval Order SARS-CoV-2, RNA, NAAT Blood Type Antibody Screen 10/25/20 11:57 WBC RBC Hgb Hct MCV MCH MCHC RDW Std Deviation RDW Coeff of Yevgeniy Plt Count MPV Immature Gran % (Auto) Neut % (Auto) Lymph % (Auto) Arthur % (Auto) Eos % (Auto) Baso % (Auto) Neut # (Auto) Lymph # (Auto) Arthur # (Auto) Eos # (Auto) Baso # (Auto) Immature Gran # (Auto) PT INR APTT PTT Ratio Sodium Potassium Chloride Carbon Dioxide Anion Gap BUN Creatinine Est Cr Clr Drug Dosing Est GFR ( Amer) Est GFR (Non-Af Amer) BUN/Creatinine Ratio Glucose POC Glucose 155 H Calcium Total Bilirubin AST ALT Alkaline Phosphatase Troponin I Total Protein Albumin Globulin Albumin/Globulin Ratio Urine Color Urine Appearance Urine pH Ur Specific Underwood Urine Protein Urine Glucose (UA) Urine Ketones Urine Blood Urine Nitrite Urine Bilirubin Urine Urobilinogen Ur Leukocyte Esterase Urine WBC (Auto) Urine RBC (Auto) U Hyaline Cast (Auto) U Epithel Cells (Auto) Urine Bacteria (Auto) Ur Renal Epithelial Cell Granular Casts COVID-19 Eval Order SARS-CoV-2, RNA, NAAT Blood Type Antibody Screen Diagnostic Findings Telemetry personally reviewed: no arrhythmia noted. Sinus rhythm. ECG personally reviewed: ECG 10/24/2020: Sinus rhythm with first-degree AV block. RBBB. 83 beats per minute. Pacemaker interrogation: No noted ventricular arrhythmia. Chest x-ray 10/24/2020: No acute process per Radiology. Femur x-ray 10/24/2020: Left hip total joint arthroplasty with acute comminuted and displaced periprosthetic subtrochanteric fracture. Medications Administered Current Inpatient Medications Acetaminophen (Acetaminophen 325 Mg Tab) 650 mg PO Q4H PRN PRN Reason: Pain or Fever Stop: 11/24/20 03:05 Hydrocodone Bitart/Acetaminophen (Hydrocodone/Acetamophen 5/325mg Tab) 1 tab PO Q4H PRN PRN Reason: MODERATE Pain (4,5,6) & Pre PT Stop: 11/08/20 03:39 Last Admin: 10/25/20 04:51 Dose: 1 tab Documented by: Albuterol (Albut/Ipratrop 3mg/0.5mg Neb 3 Ml Vial) 3 ml NEB Q2H PRN PRN Reason: dyspnea Stop: 11/24/20 03:53 Last Admin: 10/25/20 07:47 Dose: 3 ml Documented by: Atorvastatin Calcium (Atorvastatin 40 Mg Tab) 40 mg PO QAM [facility] Stop: 11/24/20 08:59 Last Admin: 10/25/20 08:34 Dose: 40 mg Documented by: Bisacodyl (Bisacodyl 10 Mg Supp) 10 mg OH DAILY PRN PRN Reason: Constipation Stop: 11/24/20 03:39 Famotidine (Famotidine 20 Mg Tab) 20 mg PO BID [facility] Stop: 11/24/20 20:59 Ferrous Sulfate (Ferrous Sulfate 325 Mg Tab) 325 mg PO DAILY [facility] Stop: 11/24/20 08:59 Last Admin: 10/25/20 08:34 Dose: 325 mg Documented by: Fluticasone/Vilanterol (Fluticasone/Vilanterol 200/25mcg 14 Puffs/Inhaler) 1 puffs INH DAILY [facility] Stop: 11/24/20 08:59 Last Admin: 10/25/20 08:35 Dose: 1 puffs Documented by: Hydromorphone HCl (Hydromorphone Inj 0.5 Mg/0.5 Ml Syr) 0.25 mg IV Q3H PRN PRN Reason: Severe Pain Stop: 11/08/20 03:39 Insulin Glargine (Insulin Glargine Solostar 100 Units/Ml 3 Ml Pen) 20 units SQ HS [facility] Stop: 11/24/20 20:59 Magnesium Chloride (Magnesium Chloride 64mg Delayed Rel Tab) 64 mg PO BID [facility] Stop: 11/24/20 08:59 Last Admin: 10/25/20 08:34 Dose: 64 mg Documented by: Magnesium Hydroxide (Magnesium Hydroxide Susp 30 Ml Udc) 30 ml PO DAILY PRN PRN Reason: Constipation Stop: 11/24/20 03:39 Meclizine HCl (Meclizine 12.5 Mg Tab) 12.5 mg PO TID PRN PRN Reason: dizziness Stop: 11/24/20 03:05 Montelukast Sodium (Montelukast Sodium 10 Mg Tablet) 10 mg PO [facility] Stop: 11/24/20 20:59 Multivitamins (Multivitamin Tab) 1 tab PO DAILY [facility] Stop: 11/24/20 08:59 Last Admin: 10/25/20 08:34 Dose: 1 tab Documented by: Naloxone HCl (Naloxone Hcl 0.4 Mg/1 Ml Vial/Carp) 0.1 mg IV UD PRN PRN Reason: Opiate Overdose Stop: 11/24/20 03:39 Ondansetron HCl (Ondansetron Inj 2 Mg/Ml 2 Ml Vial) 4 mg IV Q6H PRN PRN Reason: Nausea Stop: 11/24/20 03:05 Ropinirole HCl (Ropinirole Hcl 1 Mg Tablet) 1.5 mg PO [facility] Stop: 11/24/20 20:59 Senna/Docusate Sodium (Docusate Sodium/Senna 50/8.6mg Tab) 2 tab PO [facility] Stop: 11/24/20 20:59 Umeclidinium Atlantic (Umeclidinium [place] 62.5mcg/Blister 7 Puffs/Inhaler) 1 puffs INH DAILY [facility] Stop: 11/24/20 08:59 Last Admin: 10/25/20 08:35 Dose: 1 puffs Documented by: Vitamin D (Cholecalciferol 1,000 Units 25 Mcg Tab) 2,000 units PO BID [facility] Stop: 11/24/20 08:59 Last Admin: 10/25/20 08:34 Dose: 2,000 units Documented by: PG Care Time/CCT Total # of Minutes Spent Total Time Spent with Patient: Total time spent is greater than 50% in coordination of care (as documented) at patient's floor/unit and/or counseling patient: Coding Level of Care Code 68866 Initial Inpt Care Lvl 2 Diagnoses Syncope and collapse R55 Elevated troponin R77.8 Cardiac pacemaker Z95.0 High-grade atrioventricular block I44.39 PRIDE (dyspnea on exertion) R06.00 Preop cardiovascular exam Z01.810
--- NOTE | 2020-10-25 14:45 | XCELERA ---
[id number] [id number]
[2020-10-25] MEDS ORDERED: LORazepam 0.5 MG TAB PO PRN (15:49)
--- NOTE | 2020-10-25 16:06 | Discharge Summary ---
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 The patient presents to the emergency department after mechanical fall, with work-up in the emergency department including x-rays showing a left periprosthetic hip fracture Principal Diagnosis left periprosthetic hip fracture due to ground level fall Discharge Exam Constitutional WD/WN, vitals as above + obese; no acute distress Neck trachea midline, no thyromegaly Respiratory normal respiratory effort, lungs clear to auscultation Cardiovascular RRR, no murmur, no edema Gastrointestinal (Abdomen) normal bowel sounds, soft, nontender, no hepatosplenomegaly Musculoskeletal Head/Neck/Chest: normocephalic, head atraumatic and neck supple Spine: lumbar spine normal to inspection Extremities: + limited ROM of extremities (cannot move left hip joint due to pain) and strength 5/5 throughout; no cyanosis, no clubbing and no petechiae Hip: + limited ROM of hip (left) and + log roll test positive (left) Skin no rashes, warm and dry Neurologic patellar DTR's 2+ bilat, sensation intact and PERRL, EOMI, accommodation nl, no face palsy, no dysarthria Psychiatric Orientation: alert and oriented x 3 Affect: + anxious affect and + tearful affect (about needing transferred) Lymphatic no cervical or axillary lymphadenopathy Discharge Data Allergies Allergy/AdvReac Type Severity Reaction Status Date / Time No Known Allergies Allergy Verified 10/24/20 22:58 Consultations 10/25/20 00:03 ED Decision to Admit Stat 10/25/20 03:40 Consult Case Management - Discharge Planning Routine Consult Orthopedic Surgery Routine 10/25/20 04:07 Consult Cardiology Routine 10/25/20 15:26 Burn CD for patient Stat Ordered Studies 10/24/20 23:21 CT head/brain wo con Urgent Hospital Course (1) Periprosthetic fracture around internal prosthetic left hip joint: history of bilateral TKA in 1995 suffered fall with periprosthetic fracture of distal femur about 10 years ago, had ORIF left femur by Dr. Elliott subsequently developed left hip pain and needed left KYLAH in 2016 yesterday she had a syncopal episode while standing in her bathroom she awoke on the floor in severe pain in her left hip Left femur x-ray: 1. Left hip total joint arthroplasty with acute comminuted and displaced periprosthetic subtrochanteric fracture 2. ORIF changes of the mid and distal femur with left knee total joint arthroplasty. pain control with Acetaminophen 650 mg p.o. every 6 hours as needed mild pain or temperature [place]am 5/325 1 p.o. every 4 hours as needed moderate pain Dilaudid 0.25 mg IV every 3 hours as needed severe pain discussed with [facility], they recommend transfer to tertiary care for trauma orthopedics, complex case spoke with Dr. Park with orthopedics, he will accept the case to trauma ortho transfer to [facility] once they have a bed and insurance authorization (2) Non-STEMI (non-ST elevated myocardial infarction): initially suspected to have NSTEMI Troponin elevated at 0.98, repeat 0.44 evaluated by cardiology, do not suspect ACS, likely elevated troponin from hypovolemia, vomiting and diarrhea she would be at elevated risk for surgery but needs it due to fracture would recommend getting cardiology consult BP has been stable, she is paced, has history of high grade AV block (3) Lab test positive for detection of COVID-19 virus: patient received her first COVID vaccine on Sunday 10/22, she is unsure which vaccine it was she developed diarrhea and vomiting the next day, both she and her who also got the vaccine she tested positive, PCR test, here in the emergency room on admission no dyspnea, no fever CXR is clear and lungs clear on exam she wears 2L chronically so she does not have any worsening hypoxia however, would treat this as positive test since the vaccine would not give her positive PCR test no known sick contacts, she does not leave her house except for doctor's appointments (4) Syncope and collapse: happened afternoon/evening on 10/24 she had been experiencing vomiting and diarrhea, weakness she felt like she had to move her bowels, walked to the bathroom she started to feel light headed and then she woke up on the bathroom floor with pain in left hip she has a pacemaker, no focal neurological deficits to suggest stroke elevated troponin, cardiology doubts ACS most logical explanation would be hypovolemia from GI losses and possibly vasovagal if she felt like she had to have a bowel movement (5) Vomiting and diarrhea: started after getting COVID vaccine on Sunday 10/22 both she and her had the same symptoms, both got the vaccine given her positive COVID test, it could be COVID infection giving her the GI symptoms Cr is normal, electrolytes stable, BP stable no issues with vomiting or diarrhea while here (6) Chronic respiratory failure with hypoxia: stable on 2L (7) Restless leg syndrome: Continue ropinirole (8) Vitamin D deficiency: Continue vitamin D (9) Type 2 diabetes mellitus, with long-term current use of insulin: Hold Metformin. Decrease Lantus from 30 to 20 units subcu at bedtime Placed on Accu-Cheks before meals and at bedtime/every 6 hours with NovoLog coverage per scale (10) Obstructive sleep apnea: Patient refuses CPAP (11) Dyslipidemia: Placed on atorvastatin 40 mg daily Check a fasting lipid panel (12) Esophageal reflux: Placed on famotidine 20 mg IV every 12 hours (13) Asthma: Continue Umeclidinium. DuoNebs every 2 hours as needed Total Time Total Time Spent Total Time Spent (In Minutes): 45 minutes Total Time Includes: Examination of the Patient, Discharge Planning and Medication Reconciliation Discharge Plan Discharge Items Patient Disposition: Transfer Acute Care Hospital Reason For Visit: PERIPROSTHETIC HIP FRACTURE Discharge Diagnosis: Left hip periprosthetic fracture COVID + without evidence of pneumonia Syncope Condition on Discharge: Fair Goals: transfer to [facility] Activity: As commented below Activity Comment: bedrest Non-emergency contact: Surgeon Call non-emergency contact if: you have any medication questions Follow-up/Referrals: Jean Beach MD [Primary Care Provider] - Diet: Carb Consistent or DM2 Addtl Attending Provider Instructions: transfer to [facility] for surgical correction of fracture Pending Studies at Discharge: No Stand-Alone Forms: My [facility] Skilled Items Patient informed of condition?: Yes DNR: No Discharge Level of Care: Other Communicable Disease: No Discharge Prognosis: Stable Lines: Peripheral IV Urinary Catheter: Yes Medications and DC Order Prescriptions: Continued polyethylene glycol 3350 [Miralax] 17 gram/dose powder 8.5 - 17 g PO DAILY Qty: 510 RF: 3 (DME) OneTouch Ultra Blue Test Strip Strip See Dose Instructions .ROUTE .MEDSUPPLY Qty: 100 RF: 3 nystatin-triamcinolone 100,000-0.1 unit/gram-% ointment 1 applic topical TID PRN (Reason: Unknown) Qty: 15 RF: 3 (DME) pen needle, diabetic [BD Ultra-Fine Short Pen Needle] 31 gauge x 5/16" needle See Rx Instructions .ROUTE .MEDSUPPLY Qty: 500 RF: 3 albuterol sulfate [Ventolin HFA] 90 mcg/actuation HFA aerosol inhaler 2 puff INHALATION Q4H PRN (Reason: Shortness Of Breath) Qty: 18 RF: 3 Nucala 100 mg/mL auto-injector 100 mg SQ Q4WK Qty: 1 RF: 11 (DME) Allergy Syringe 1 mL 27 x 1/2" syringe See Rx Instructions .ROUTE .MEDSUPPLY Qty: 1 RF: 0 telmisartan 80 mg tablet 80 mg PO DAILY Qty: 90 RF: 3 metformin 1,000 mg tablet 1,000 mg PO DAILY Qty: 90 RF: 3 montelukast 10 mg tablet 10 mg PO HS Qty: 90 RF: 3 omeprazole 20 mg capsule,delayed release(DR/EC) 20 mg PO DAILY Qty: 90 RF: 3 simvastatin 40 mg tablet 40 mg PO HS Qty: 90 RF: 3 ropinirole 0.5 mg tablet 1.5 mg PO HS Qty: 270 RF: 3 Novolog Flexpen U-100 Insulin 100 unit/mL (3 mL) insulin pen See Rx Instructions SUBCUT TIDM 90 Days Qty: 3 RF: 3 umeclidinium 62.5 mcg/actuation blister with device 62.5 mcg Inhalation DAILY Qty: 90 RF: 3 Lantus Solostar U-100 Insulin 100 unit/mL (3 mL) insulin pen 30 unit SUBCUT HS 90 Days Qty: 30 RF: 3 (DME) Dexcom G6 Stamping Die Try Out Worker misc See Dose Instructions .ROUTE .MEDSUPPLY Qty: 1 RF: 0 (DME) Dexcom G6 Transmitter device See Dose Instructions .ROUTE .MEDSUPPLY Qty: 1 RF: 3 (DME) Dexcom G6 Sensor device See Dose Instructions .ROUTE .MEDSUPPLY Qty: 3 RF: 11 multivitamin Tablet 1 tab PO DAILY RF: 0 meclizine 12.5 mg tablet 12.5 mg PO TID PRN (Reason: dizziness) Qty: 30 RF: 0 ipratropium-albuterol 0.5 mg-3 mg(2.5 mg base)/3 mL solution for nebulization See Rx Instructions .ROUTE .COMPLEX RF: 0 aspirin 81 mg Tablet,Delayed Release (Dr/Ec) 81 mg PO DAILY RF: 0 fluticasone propion-salmeterol 500-50 mcg/dose blister with device 1 puff Inhalation BID RF: 0 cholecalciferol (vitamin D3) [Vitamin D3] 2,000 unit Capsule 2,000 unit PO BID RF: 0 furosemide 20 mg Tablet 20 mg PO DAILY PRN (Reason: Edema) RF: 0 Slow-Mag 71.5 mg Tablet,Delayed Release (Dr/Ec) 71.5 mg PO BID RF: 0 ferrous sulfate 325 mg (65 mg iron) tablet 325 mg PO DAILY RF: 0 zoledronic [id number] [Reclast] 5 mg/100 mL Piggyback 5 mg IV USEASDIRECTD RF: 0 cyanocobalamin (vitamin B-12) [Vitamin B-12] 1,000 mcg/mL Solution 1,000 mcg IM MONTHLY RF: 0 Discharge Orders: Discharge Order (Routine); Ordered 10/25/20 Ordered By: Mak Gonzales Admission Data Admit Date/Time: 10/25/20 01:20 Attending Provider: Mak Gonzales Admit Provider: Len Hoskins Primary Care Provider: Jean Beach Other Providers: Len Hoskins ; Janak Panda ; Minh Keith Coding Level of Care Code D/C Day Management >30 mins Diagnoses Periprosthetic fracture around internal prosthetic left hip joint M97.02XA Encounter type: initial encounter Non-STEMI (non-ST elevated myocardial infarction) I21.4 Lab test positive for detection of COVID-19 virus U07.1 Syncope and collapse R55 Vomiting and diarrhea R11.10; R19.7 Chronic respiratory failure with hypoxia J96.11 Restless leg syndrome G25.81 Vitamin D deficiency E55.9 Type 2 diabetes mellitus, with long-term current use of insulin E11.9; Z79.4 Obstructive sleep apnea G47.33 Dyslipidemia E78.5 Esophageal reflux K21.9 Asthma J45.909
[2020-10-25] MEDS ORDERED: rOPINIRole HCL 1 MG TABLET PO SCH (21:00)
[2020-10-25] MEDS ORDERED: INSULIN GLARGINE SOLOSTAR 100 UNITS/ML 3 ML PEN SQ SCH (21:00)
[2020-10-25] MEDS ORDERED: DOCUSATE SODIUM/SENNA 50/8.6MG TAB PO SCH (21:00)
[2020-10-25] MEDS ORDERED: SIMVASTATIN 40 MG TAB PO SCH (21:00)
[2020-10-25] MEDS ORDERED: MONTELUKAST SODIUM 10 MG TABLET PO SCH (21:00)
[2020-10-25] MEDS ORDERED: FAMOTIDINE 20 MG TAB PO SCH (21:00)
--- NOTE | 2020-10-26 05:42 | Electrocardiogram Report ---
Test Reason : Blood Pressure : / mmHG Vent. Rate : 083 BPM Atrial Rate : 083 BPM P-R Int : 266 ms QRS Dur : 164 ms QT Int : 400 ms P-R-T Axes : 059 260 -13 degrees QTc Int : 470 ms Sinus rhythm with 1st degree A-V block Right bundle branch block Abnormal ECG When compared with ECG of 07-MAR-2020 09:46, T wave inversion more evident in Anterior leads Confirmed by Minh Keith ([id number]) on 10/26/2020 5:42:12 AM Referred By: REFERRED SELF Confirmed By:Minh Keith
== END 2020-10-25 22:27 | disposition short-term general hospital (02) | DRG 559 ==
LOC: ED 21:42 → SUATTDRO 10-25 01:20 → 2E 10-25 01:20

== ENCOUNTER 2020-11-11 05:56 | Inpatient (IN) ==
[2020-11-11] MEDS ORDERED: ONDANSETRON INJ 2 MG/ML 2 ML VIAL IV STA (06:30)
[2020-11-11] MEDS ORDERED: SODIUM CHLORIDE 0.9% 500 ML IV SCH (06:30)
--- NOTE | 2020-11-11 06:40 | Emergency Department Note ---
History of Present Illness General Chief complaint: Diarrhea Stated complaint: BLOOD IN STOOL Time Seen by Provider: 11/11/20 06:29 Source: patient and RN notes reviewed Mode of arrival: EMS Limitations: no limitations History of Present Illness This patient is brought in by EMS from [facility] after having blood in her stool. She fell on October 23 and at that time was diagnosed with Covid she was asymptomatic besides having some diarrhea. She had hip surgery on the seventh. She has chronic shortness of breath which is nothing new. Today she reportedly had bright red blood in her stool she is not sure but just with [facility] told her. She said some nausea and some mild abdominal discomfort as well. No recent fall or trauma since the initial incident. She does not believe she is on any blood thinners. She said no lightheadedness or dizziness Home Medications Medication Instructions Recorded Confirmed Type Dexcom G6 Commercial Account Executive #1 ea NS 07/29/19 07/23/20 Rx Dexcom G6 Sensor #3 ea NS 07/29/19 07/23/20 Rx Dexcom G6 Transmitter #1 ea NS 07/29/19 07/23/20 Rx blood sugar diagnostic #100 ea 11/24/19 07/23/20 Rx pen needle, diabetic 31 gauge x #500 box 11/24/19 07/23/20 Rx 5/16" syringe with needle 1 mL 27 x 1/2" #1 ea 01/04/20 07/23/20 Rx simvastatin 40 mg tablet 40 mg PO HS #90 tab 05/09/20 11/11/20 Rx Lantus Solostar U-100 Insulin 40 unit SUBCUT DAILY 11/11/20 11/11/20 History PNV cmb#95-ferrous fumarate-FA 1 tab PO DAILY 11/11/20 11/11/20 History [] acetaminophen [Tylenol] 975 mg PO Q8 11/11/20 11/11/20 History albuterol sulfate [Ventolin HFA] 1 puff INHALATION Q4H PRN 11/11/20 11/11/20 History ascorbic acid (vitamin C) 500 mg PO DAILY 11/11/20 11/11/20 History dulaglutide [Trulicity] 0.75 mg SUBCUT .DAILY EVERY 7 DAYS 11/11/20 11/11/20 History enoxaparin 60 mg SUBCUT Q12H 11/11/20 11/11/20 History menthol-zinc oxide [Calmoseptine] 1 applic TOPICAL QS 11/11/20 11/11/20 History mepolizumab [Nucala] 100 mg SUBCUT .EVERY 28 DAYS 11/11/20 11/11/20 History metformin 1,000 mg PO BID 11/11/20 11/11/20 History mometasone [Asmanex Twisthaler] 1 inh INHALATION AMHS 11/11/20 11/11/20 History nystatin 1 applic TOPICAL QS 11/11/20 11/11/20 History oxycodone 5 mg PO Q6 PRN 11/11/20 11/11/20 History oxycodone 10 mg PO Q6 PRN 11/11/20 11/11/20 History polyethylene glycol 3350 [Miralax] 17 g PO DAILY 11/11/20 11/11/20 History prednisolone sodium phosphate 1 drp OPL DAILY 11/11/20 11/11/20 History telmisartan 40 mg PO DAILY 11/11/20 11/11/20 History Allergies Allergy/AdvReac Type Severity Reaction Status Date / Time No Known Allergies Allergy Verified 11/11/20 07:25 Past Med/Surg History Medical History (Updated 11/11/20 @ 14:14 by Sumit Mead MD) Asthma Carpal tunnel syndrome on right Diabetic peripheral neuropathy associated with type 2 diabetes mellitus Dyslipidemia Esophageal reflux First degree atrioventricular block HTN (hypertension) Hx of fracture of femur Iron deficiency anemia secondary to inadequate dietary iron intake Mediastinal adenopathy Multiple pulmonary nodules Obesity, morbid, BMI 40.0-49.9 Obstructive sleep apnea refuses CPAP Osteopenia Paroxysmal tachycardia Respiratory failure Restless leg syndrome Selective deficiency of IgG Syncope Type 2 diabetes mellitus, with long-term current use of insulin Vitamin D deficiency Surgical History H/O total hip arthroplasty left H/O: hysterectomy History of bronchoscopy (~11/2017) by Dr. Churchill followed by a mediastinoscopy and biopsy in December 2017 History of tonsillectomy and adenoidectomy Hx of cataract extraction bilateral. 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 Hx of cholecystectomy Hx of colonoscopy (~2015) Hx of eye surgery left Hx of total knee arthroplasty bilateral S/P appy Family History Father Cardiovascular disease Diabetes Asthma Brother Diabetes Cardiac disorder Mother Breast cancer Other Family history non-contributory Social History Smoking Status: Never smoker Second Hand Exposure: No; Hx Alcohol Use: No Hx Substance Use: No Preferred Language: Kazakh Communication Ability: Effective Transit Mix Operator Required: No Beliefs That Will Affect Care: None marital status: Current Living Situation: [facility]irement [facility] Current Living Situation Comment: Rehab at [facility] current occupational status: retired Feels Safe at Home: Yes Assistive Devices: Walker and Wheelchair Review of Systems A total of 10 systems reviewed and were otherwise negative Physical Exam Vital Signs Vital Signs - 24 hr 11/11/20 06:05 11/11/20 06:09 11/11/20 06:10 Temperature 36.9 C Temperature Source Oral Pulse Rate 77 96 H 100 H Pulse Rate [Right] Pulse Rate from SpO2 Sensor 94 H 100 H Pulse Rhythm Regular Pulse Rhythm [Right] Pulse Strength Normal Pulse Strength [Right] Respiratory Rate 22 18 21 Respiratory Effort / Characteristics Non-Labored Spontaneous Respiratory Depth Normal Blood Pressure 91/43 L Blood Pressure [Right Arm] Blood Pressure Mean 59 Blood Pressure Mean [Right Arm] Blood Pressure Position [Right Arm] Pulse Oximetry 87 L 100 100 Oxygen Delivery Method Nasal Cannula Oxygen Flow Rate 3 Sepsis Recent Fever Within 48 Hours No Sepsis New/Unexplained Change in Mental Status N/A Sepsis Action Taken by Nursing No Action Required 11/11/20 06:16 11/11/20 06:20 11/11/20 06:30 Temperature Temperature Source Pulse Rate 92 H 94 H 92 H Pulse Rate [Right] Pulse Rate from SpO2 Sensor 94 H 96 H Pulse Rhythm Pulse Rhythm [Right] Pulse Strength Pulse Strength [Right] Respiratory Rate 21 21 21 Respiratory Effort / Characteristics Respiratory Depth Blood Pressure 91/43 L Blood Pressure [Right Arm] Blood Pressure Mean 59 Blood Pressure Mean [Right Arm] Blood Pressure Position [Right Arm] Pulse Oximetry 100 100 Oxygen Delivery Method Oxygen Flow Rate Sepsis Recent Fever Within 48 Hours Sepsis New/Unexplained Change in Mental Status Sepsis Action Taken by Nursing 11/11/20 06:37 11/11/20 06:39 11/11/20 06:40 Temperature Temperature Source Pulse Rate 91 H 89 Pulse Rate [Right] 89 Pulse Rate from SpO2 Sensor 91 H 89 Pulse Rhythm Pulse Rhythm [Right] Regular Pulse Strength Pulse Strength [Right] Normal Respiratory Rate 21 20 Respiratory Effort / Characteristics Non-Labored Spontaneous Respiratory Depth Normal Blood Pressure 120/39 L Blood Pressure [Right Arm] 120/39 L Blood Pressure Mean 66 Blood Pressure Mean [Right Arm] 66 Blood Pressure Position [Right Arm] Lying Pulse Oximetry 100 100 100 Oxygen Delivery Method Nasal Cannula Nasal Cannula Oxygen Flow Rate 3 3 Sepsis Recent Fever Within 48 Hours Sepsis New/Unexplained Change in Mental Status Sepsis Action Taken by Nursing 11/11/20 06:50 11/11/20 07:00 11/11/20 07:10 Temperature Temperature Source Pulse Rate 91 H 89 88 Pulse Rate [Right] Pulse Rate from SpO2 Sensor 85 Pulse Rhythm Pulse Rhythm [Right] Pulse Strength Pulse Strength [Right] Respiratory Rate 19 18 19 Respiratory Effort / Characteristics Respiratory Depth Blood Pressure Blood Pressure [Right Arm] Blood Pressure Mean Blood Pressure Mean [Right Arm] Blood Pressure Position [Right Arm] Pulse Oximetry 88 L Oxygen Delivery Method Oxygen Flow Rate Sepsis Recent Fever Within 48 Hours Sepsis New/Unexplained Change in Mental Status Sepsis Action Taken by Nursing 11/11/20 07:20 11/11/20 07:30 11/11/20 07:40 Temperature Temperature Source Pulse Rate 86 94 H 94 H Pulse Rate [Right] Pulse Rate from SpO2 Sensor 87 Pulse Rhythm Pulse Rhythm [Right] Pulse Strength Pulse Strength [Right] Respiratory Rate 19 24 20 Respiratory Effort / Characteristics Respiratory Depth Blood Pressure Blood Pressure [Right Arm] Blood Pressure Mean Blood Pressure Mean [Right Arm] Blood Pressure Position [Right Arm] Pulse Oximetry 96 83 L Oxygen Delivery Method Oxygen Flow Rate Sepsis Recent Fever Within 48 Hours Sepsis New/Unexplained Change in Mental Status Sepsis Action Taken by Nursing 11/11/20 07:45 Temperature Temperature Source Pulse Rate 97 H Pulse Rate [Right] Pulse Rate from SpO2 Sensor 83 Pulse Rhythm Pulse Rhythm [Right] Pulse Strength Pulse Strength [Right] Respiratory Rate 23 Respiratory Effort / Characteristics Respiratory Depth Blood Pressure 108/59 L Blood Pressure [Right Arm] Blood Pressure Mean 75 Blood Pressure Mean [Right Arm] Blood Pressure Position [Right Arm] Pulse Oximetry 91 Oxygen Delivery Method Oxygen Flow Rate Sepsis Recent Fever Within 48 Hours Sepsis New/Unexplained Change in Mental Status Sepsis Action Taken by Nursing General: Well developed well nourished slightly pale older female who appears in no acute distress, breathing comfortably on room air. Normal speech HEENT: Normal cephalic atraumatic. Pupils are equal round and reactive to light. Extraocular movements are intact. Oropharynx is pink with moist mucous membranes. No swelling of the mouth lips or tongue. Neck: Supple with a midline trachea. No meningeal signs or stiffness, no JVD or bruits. No Stridor. Chest: Clear to auscultation bilaterally. No wheezes or rhonchi. No increased work of breathing. Heart: Regular rate and rhythm without murmurs or gallops. Abdomen: Soft nontender, nondistended without rebound guarding or rigidity. Rectal: (Performed in the presence of a female nurse country manager): Dark/melanotic stool with some maroon. Guaiac positive Extremities: No cyanosis clubbing or edema. No calf tenderness or assymetry Spine/Back. Non tender to palpation. No CVA tenderness Skin: Good turgor without rashes. Neurologic exam: Cranial nerves two through 12 are intact. Motor and sensation are intact and symmetrical throughout. Course Administered Medications Fluticasone Furoate (Fluticasone Furoate 100mcg 14 Puffs/Inhaler) 1 puffs INH QAM [facility] Stop: 12/11/20 10:29 Last Admin: 11/11/20 10:32 Dose: 1 puffs Documented by: [id number] Pantoprazole Sodium 40 mg/ (Dextrose) 100 mls @ 20 mls/hr IV Q5H [facility] Stop: 12/11/20 10:14 Last Admin: 11/11/20 10:30 Dose: 8 mg/hr, 20 mls/hr Documented by: [id number] Furosemide 20 mg/ Syringe 2 mls @ 4 mls/min IV 1200 [facility] Stop: 11/11/20 16:00 Last Admin: 11/11/20 12:08 Dose: 4 mls/min Documented by: [id number] Insulin Aspart (Insulin Aspart 100 Units/Ml 3 Ml Pen) 0 units SC Q6 [facility] Stop: 12/11/20 09:40 Last Admin: 11/11/20 12:18 Dose: Not Given Documented by: [id number] Cosigned by: [id number] Admin: 11/11/20 10:29 Dose: Not Given Documented by: [id number] Cosigned by: [id number] Nystatin (Nystatin Cr 15 Gm Tube) 1 appln EXT QS [facility] Stop: 11/23/20 23:00 Last Admin: 11/11/20 10:29 Dose: 1 appln Documented by: [id number] Prednisolone Sodium Phosphate (Prednisolone Sod Phos 1% 10 Ml Btl) 1 drops OPL DAILY [facility] Stop: 12/11/20 09:40 Last Admin: 11/11/20 10:28 Dose: 1 drops Documented by: [id number] Discontinued Medications Calcium Gluconate (Calcium Gluconate 1000 Mg/60 Ml Nss) Confirm Administered Dose 1,000 mg IV .STK-MED ONE Stop: 11/11/20 08:00 Last Admin: 11/11/20 08:16 Dose: 1,000 mg Documented by: [id number] Dextrose (Dextrose 50% 50 Ml Syringe) 50 ml IV NOW STA Stop: 11/11/20 07:51 Last Admin: 11/11/20 08:16 Dose: Not Given Documented by: [id number] Dextrose (Dextrose 50% 50 Ml Syringe) Confirm Administered Dose 50 ml IV .STK- MED ONE Stop: 11/11/20 08:01 Last Admin: 11/11/20 08:15 Dose: 50 ml Documented by: [id number] Dextrose (Dextrose 50% 50 Ml Syringe) 50 ml IV NOW STA Stop: 11/11/20 13:12 Last Admin: 11/11/20 13:48 Dose: 50 ml Documented by: [id number] Sodium Chloride (Nss) 500 mls @ 999 mls/hr IV .Q31M [facility] Stop: 11/11/20 07:00 Last Infusion: 11/11/20 07:14 Dose: 0 mls/hr Documented by: [id number] Admin: 11/11/20 06:38 Dose: 999 mls/hr Documented by: [id number] Pantoprazole Sodium 80 mg/ (Dextrose) 100 mls @ 400 mls/hr IV ONE STA Stop: 11/11/20 07:47 Last Infusion: 11/11/20 08:30 Dose: 0 mls/hr Documented by: [id number] Admin: 11/11/20 08:17 Dose: 400 mls/hr Documented by: [id number] Calcium Gluconate 1,000 mg/ (Sodium Chloride) 60 mls @ 240 mls/hr IV NOW STA Stop: 11/11/20 08:04 Last Admin: 11/11/20 08:16 Dose: Not Given Documented by: [id number] Insulin Human Regular 10 units (/ Syringe) 9.9 mls @ 3 mls/sec IV ONE STA Stop: 11/11/20 07:51 Last Admin: 11/11/20 08:16 Dose: Not Given Documented by: [id number] Sodium Chloride (Nss 1000ml) 500 mls @ 999 mls/hr IV .Q31M ONE Stop: 11/11/20 10:11 Last Admin: 11/11/20 10:32 Dose: Not Given Documented by: [id number] Calcium Gluconate 1,000 mg/ (Sodium Chloride) 60 mls @ 240 mls/hr IV NOW STA Stop: 11/11/20 13:25 Last Admin: 11/11/20 13:40 Dose: 240 mls/hr Documented by: [id number] Insulin Human Regular 10 units (/ Syringe) 9.9 mls @ 3 mls/sec IV ONE STA Stop: 11/11/20 13:12 Last Admin: 11/11/20 13:40 Dose: 3 mls/sec Documented by: [id number] Cosigned by: [id number] Furosemide 20 mg/ Syringe 2 mls @ 4 mls/min IV NOW STA Stop: 11/11/20 13:12 Last Admin: 11/11/20 13:40 Dose: 4 mls/min Documented by: [id number] Insulin Human Regular (Novolin-R Insulin Per Unit Charge) Confirm Administered Dose 10 units .ROUTE .STK-MED ONE Stop: 11/11/20 08:04 Last Admin: 11/11/20 08:15 Dose: 10 units Documented by: [id number] Cosigned by: [id number] Ondansetron HCl (Ondansetron Inj 2 Mg/Ml 2 Ml Vial) 4 mg IV NOW STA Stop: 11/11/20 06:31 Last Admin: 11/11/20 06:38 Dose: 4 mg Documented by: [id number] Critical Care Time Critical Care Time: Yes Total Critical Care Time: 35 I have personally spent greater than 305minutes of critical care time in the direct management of this patient. This includes bedside care, interpretation of diagnostic studies, and testing, discussion with consultants, patient, and family members, and other required patient management activities. This 35 minutes is in excess of all separately billable procedures. Medical Decision Making Differential Diagnosis Diarrhea, dehydration, GI bleed, anemia, sepsis, Covid, electrolyte or metabolic abnormality Medical Records Attestation: I reviewed the patient's medical records. Home Medications Current Medication List: was personally reviewed by me Laboratory Data Result diagrams: 11/11/20 06:47 11/11/20 12:24 Lab Results 11/11/20 11/11/20 11/11/20 Range/Units 06:47 06:47 06:47 WBC 13.97 H (4.8-10.8) K/uL RBC 1.49 L (4.2-5.4) M/uL Hgb 4.4 L* (12.0-16.0) g/dL Hct 14.6 L* (37-47) % MCV 98.0 (80-100) fL MCH 29.5 (25-34) pg MCHC 30.1 L (32-36) g/dL RDW Std Deviation 64.8 H (36.4-46.3) fL RDW Coeff of Yevgeniy 18.7 H (11.5-14.5) % Plt Count 637 H (130-400) K/uL MPV 9.8 (7.4-10.4) fL Immature Gran % (Auto) 1.0 % Neut % (Auto) 82.2 % Lymph % (Auto) 8.9 % [place] % (Auto) 7.3 % Eos % (Auto) 0.5 % Baso % (Auto) 0.1 % Neut # (Auto) 11.47 H (1.4-6.5) K/uL Lymph # (Auto) 1.25 (1.2-3.4) K/uL [place] # (Auto) 1.02 H (0.11-0.59) K/uL Eos # (Auto) 0.07 (0-0.5) K/uL Baso # (Auto) 0.02 (0-0.2) K/uL Immature Gran # (Auto) 0.14 H (0.00-0.02) K/uL Absolute Nucleated RBC 0.02 H (0-0) K/uL Nucleated RBC % (auto) 0.1 % Polychromasia 1+ PT 10.7 (9.0-12.0) Seconds INR 1.1 (0.9-1.1) APTT 26.9 (21.0-31.0) Seconds PTT Ratio 1.0 Sodium (136-145) mmol/L Potassium (3.5-5.1) mmol/L Chloride (98-107) mmol/L Carbon Dioxide (21-32) mmol/L Anion Gap (3-11) BUN (7-18) mg/dl Creatinine (0.6-1.2) mg/dl Est Cr Clr Drug Dosing ml/min Est GFR ( Amer) Est GFR (Non-Af Amer) BUN/Creatinine Ratio (10-20) Glucose (70-99) mg/dl Calcium (8.5-10.1) mg/dl Total Bilirubin (0.2-1) mg/dl AST (15-37) U/L ALT (12-78) U/L Alkaline Phosphatase (45-117) U/L Total Protein (6.4-8.2) gm/dl Albumin (3.4-5.0) gm/dl Globulin (2.5-4.0) gm/dl Albumin/Globulin Ratio (0.9-2) Lipase (73-393) U/L Blood Type A Positive Antibody Screen NEGATIVE Crossmatch See Detail 11/11/20 Range/Units 06:47 WBC (4.8-10.8) K/uL RBC (4.2-5.4) M/uL Hgb (12.0-16.0) g/dL Hct (37-47) % MCV (80-100) fL MCH (25-34) pg MCHC (32-36) g/dL RDW Std Deviation (36.4-46.3) fL RDW Coeff of Yevgeniy (11.5-14.5) % Plt Count (130-400) K/uL MPV (7.4-10.4) fL Immature Gran % (Auto) % Neut % (Auto) % Lymph % (Auto) % [place] % (Auto) % Eos % (Auto) % Baso % (Auto) % Neut # (Auto) (1.4-6.5) K/uL Lymph # (Auto) (1.2-3.4) K/uL [place] # (Auto) (0.11-0.59) K/uL Eos # (Auto) (0-0.5) K/uL Baso # (Auto) (0-0.2) K/uL Immature Gran # (Auto) (0.00-0.02) K/uL Absolute Nucleated RBC (0-0) K/uL Nucleated RBC % (auto) % Polychromasia PT (9.0-12.0) Seconds INR (0.9-1.1) APTT (21.0-31.0) Seconds PTT Ratio Sodium 138 (136-145) mmol/L Potassium 6.3 H* (3.5-5.1) mmol/L Chloride 108 H (98-107) mmol/L Carbon Dioxide 27 (21-32) mmol/L Anion Gap 4.0 (3-11) BUN 49 H (7-18) mg/dl Creatinine 1.01 (0.6-1.2) mg/dl Est Cr Clr Drug Dosing 59.6 ml/min Est GFR ( Amer) 62.2 Est GFR (Non-Af Amer) 53.7 BUN/Creatinine Ratio 48.6 H (10-20) Glucose 137 H (70-99) mg/dl Calcium 7.3 L (8.5-10.1) mg/dl Total Bilirubin 0.6 (0.2-1) mg/dl AST 12 L (15-37) U/L ALT 11 L (12-78) U/L Alkaline Phosphatase 77 (45-117) U/L Total Protein 4.4 L (6.4-8.2) gm/dl Albumin 1.5 L (3.4-5.0) gm/dl Globulin 2.9 (2.5-4.0) gm/dl Albumin/Globulin Ratio 0.5 L (0.9-2) Lipase 103 (73-393) U/L Blood Type Antibody Screen Crossmatch Imaging Data Attestation: I personally reviewed and interpreted this imaging study as follows: ECG Data Attestation: I personally reviewed and interpreted this ECG as follows: Indication: + weakness Rate (beats per minute): 96 Rhythm: + sinus rhythm ECG Intervals/blocks: + First degree AV block, + Right Bundle branch block and + Normal QT-c ECG [place]: + Normal ECG ST segments: + Normal ST segments ECG Findings: no PACs and no PVCs Comparison ECG Date: from (10/24/20) Change: no significant change MDM Narrative This patient comes in as described above. She has been having diarrhea had some blood in it today. She was placed on a air sampling and monitoring room a 9. She complains of some nausea as well. IV access was established she was hydrated with 500 cc IV normal saline bolus she was typed and screened blood work was obtained she was reassessed frequently. I also asked the nurse to establish a second IV sites well the blood was getting drawn. Her hemoglobin did come back low at 4.4. Initial pressure was low in the 90s but recheck was 120. She was typed and crossed for blood I did order 2 units of blood. I did talk to the patient at length she has had blood transfusions before I explained the risk and the benefits which would include transfusion reaction or infection. I told her that her hemoglobin is very low and she does need the blood and the benefit would outweigh any risk she agrees and wishes to proceed. I did a rectal exam and was black stool slightly maroon. I did order Protonix 40 mg IV. Her coagulation studies are normal. I did consult the [facility] hospitalist Dr. Gonzales for admission. In the meantime the patient's potassium also came back at 6.5. She has no significant EKG changes. I did go to put orders in and Dr. Gonzales had already ordered medications for her potassium including calcium chloride IV and others. The patient did remain hemodynamically stable she did have an episode of to where her pressure was on the low side but seems to be responding to blood she did receive the first unit in the ED with a second running as well. She will be admitted for further treatment and evaluation. Continuous cardiac monitoring: An order was placed in EMR for continuous cardiac monitoring. The patient was noted to be in normal sinus rhythm pulse of 96. Impression & Plan Acute GI bleeding, Anemia, Acute hyperkalemia, Diabetes mellitus Discharge Plan Visit Data Chief Complaint: Diarrhea Stated Complaint: BLOOD IN STOOL ED Provider: Sumit Mead Discharge Problem: Acute GI bleeding, Anemia, Acute hyperkalemia, Diabetes mellitus Patient Disposition: Admitted As Inpatient Discharge Instructions Interventions: ED Discharge Assessment Last Done: 11/11/20 09:19 Discharge Problem: Anemia Qualifiers: Anemia type: iron deficiency Iron deficiency anemia type: unspecified iron deficiency Qualified Code(s): D50.9 - Iron deficiency anemia, unspecified Diabetes mellitus Qualifiers: Diabetes mellitus type: type 2 Diabetes mellitus shelter insulin use: with terminal gauger supervisor use Diabetes mellitus complication status: with other specified complication Qualified Code(s): E11.69 - Type 2 diabetes mellitus with other specified complication
[2020-11-11 07:21] LABS: Hematocrit (blood only) 14.6 % (37-47); Hemoglobin 4.4 g/dL (12.0-16.0); Mean Corpuscular Hemoglobin 29.5 pg (25-34); Mean Corpuscular Hgb Conc 30.1 g/dL (32-36); Mean Platelet Volume 9.8 fL (7.4-10.4); Nucleated RBC # (auto) 0.02 K/uL (0-0); Nucleated RBC % (auto) 0.1 %; Platelet Count 637 K/uL (130-400); RDW Coefficient of Variation 18.7 % (11.5-14.5); RDW Standard Deviation 64.8 fL (36.4-46.3); Red Blood Count 1.49 M/uL (4.2-5.4); White Blood Count 13.97 K/uL (4.8-10.8)
[2020-11-11 07:22] LABS: INR 1.1 (0.9-1.1); Partial Thromboplastin Time 26.9 Seconds (21.0-31.0); Prothrombin Time 10.7 Seconds (9.0-12.0)
[2020-11-11] MEDS ORDERED: SODIUM CHLORIDE 0.9% 250 ML IV PRN ×2 (07:25→09:41)
[2020-11-11 07:29] LABS: Basophils # (auto) 0.02 K/uL (0-0.2); Basophils % (auto) 0.1 %; Eosinophils # (auto) 0.07 K/uL (0-0.5); Eosinophils % (auto) 0.5 %; Immature Granulocytes # (auto) 0.14 K/uL (0.00-0.02); Lymphocytes # (auto) 1.25 K/uL (1.2-3.4); Lymphocytes % (auto) 8.9 %; Monocytes # (auto) 1.02 K/uL (0.11-0.59); Monocytes % (auto) 7.3 %; Neutrophils # (auto) 11.47 K/uL (1.4-6.5); Neutrophils % (auto) 82.2 %; Polychromasia 1+
[2020-11-11] MEDS ORDERED: PANTOprazole 80 MG in DEXTROSE 5% 100 ML IV STA (07:33)
[2020-11-11 07:42] LABS: Albumin Globulin Ratio 0.5 (0.9-2); Albumin Level 1.5 gm/dl (3.4-5.0); BUN Creatinine Ratio 48.6 (10-20); Bilirubin,Total 0.6 mg/dl (0.2-1); Calcium 7.3 mg/dl (8.5-10.1); Creatinine Clr Calc Pharmacy 59.6 ml/min; Est GFR (African American) 62.2; Est GFR (Non-African American) 53.7; Globulin 2.9 gm/dl (2.5-4.0); Potassium 6.3 mmol/L (3.5-5.1); Total Protein 4.4 gm/dl (6.4-8.2)
[2020-11-11] MEDS ORDERED: INSULIN HUMAN REGULAR PER UNIT 10 UNITS in SYRINGE 9.9 ML IV STA ×2 (07:50→13:11)
[2020-11-11] MEDS ORDERED: CALCIUM GLUCONATE 10% 1,000 MG in SODIUM CHLORIDE 0.9% 50 ML IV STA ×2 (07:50→13:11)
[2020-11-11] MEDS ORDERED: DEXTROSE 50% 50 ML SYRINGE IV STA ×3 (07:50→21:34)
[2020-11-11] MEDS ORDERED: CALCIUM GLUCONATE 1000 MG/60 ML NSS IV ONE (07:59)
[2020-11-11] MEDS ORDERED: DEXTROSE 50% 50 ML SYRINGE IV ONE (08:00)
[2020-11-11] MEDS ORDERED: NovoLIN-R INSULIN PER UNIT CHARGE ONE (08:03)
--- NOTE | 2020-11-11 08:39 | History & Physical Report ---
Date of Service November 11, 2020 Assessment & Plan (1) Acute blood loss anemia: presents with Hb of 4.4 and low normal blood pressure, one reading in 70's systolic last known hemoglobin at the beginning of the month was 10.5 when she was admitted for periprosthetic hip fracture on the left patient with several days of diarrhea, in past 24 hours noted to have melena by staff at [facility] some intermittent abdominal pain, vomited once but not coffee ground emesis transfuse two units now, run it as fast as possible, check H/H q8, likely transfuse two more units once she gets to PCU NPO Protonix drip consult Dr. Bragg, gastroenterology, he will see her today but [facility] will take over tomorrow (2) GI bleed: several days of diarrhea and now with melena past 24 hours upper GI bleed vs colitis BUN is 49 to Cr of only 1.0 which would likely indicate PUD, upper bleed Protonix drip, NPO, consult GI transfuse for Hb > 8, stable blood pressure, anticipate her needing 4 units total noted that she was on Lovenox BID for DVT prophylaxis at [facility] (3) Hypotension: most pressures have been low normal, 90-120 systolic had one reading that was 70's systolic but the next one was 99 systolic mentating clearly, making urine will aggressively transfuse, will likely need 4 units PRBC gave her 500cc bolus of NSS in the ED, go with PRBC right now, if she gets hypotensive can give an additional 500cc bolus admit to PCU since she does not appear to be in shock, what she needs is volume, not vasopressors (4) Hyperkalemia: K of 6.3, no evidence of hemolysis reported on sample Cr is normal she was reportedly taking ARB which would be contributing no changes on tele monitor will give Calcium gluconate 1000mg IV now, dextrose 50 and regular insulin 10 un its after her second unit of PRBC, if BP is stable can give Lasix 20mg IV to promote clearance of K repeat BMP in 4 hours to see if it is coming down (5) Vomiting and diarrhea: Zofran PRN, no signs of coffee ground emesis (6) Chronic respiratory failure with hypoxia: stable on her 3L, no respiratory distress (7) Periprosthetic fracture around internal prosthetic left hip joint: suffered fracture at the beginning of October, was admitted 10/25/20 transferred to [facility] on 10/25 and she said she had surgical correction of the fracture was at [facility] for rehab but she said she was not doing much there no pain in left hip at this time once the GI bleed is resolved will get PT/OT she is adamant about not going back to [facility], consult CM (8) Type 2 diabetes mellitus, with long-term current use of insulin: hold Lantus since NPO Novolog SS q6 gave regular insulin 10 units with dextrose in the ED for K of 6.3 (9) HTN (hypertension): hold anti-hypertensives with low BP and GI bleeding (10) Lab test positive for detection of COVID-19 virus: patient received vaccine back on 10/22 had diarrhea/vomiting after getting vaccine, caused her to pass out and fracture left hip she tested positive for COVID PCR on 10/25, only had GI symptoms, never had pneumonia no sick contacts, all of her family has tested negative according to her son Ankit will repeat COVID test now as she will need a test prior to EGD anyway for now will be in isolation room, but in reality she is 17 days out from positive test with no symptoms of COVID History of Present Illness Chief Complaint: I've been pooping non-stop at [facility] Primary Care Provider: Jean Beach MD 75 yo female with history of chronic hypoxic respiratory failure, pacemaker for AV node block, recent syncope and collapse at the beginning of October with left hip periprosthetic fracture, transferred to [facility] from [facility] for extensive surgical correction. She was at [facility] for nine days, disc harged on 11/04 to [facility]. At that time her hemoglobin was 9.6, her Cr was normal at 1.0, she was breathing well on her baseline 2-3L NC. Per orthopedics instructions, she cannot bear any weight on the left leg for 6 weeks so she could not even get therapy, she would sit in a chair but that was all. She has been very frustrated because she has been having diarrhea and urinating in her bed, she will ring her hodgson, no help for 20-30 minutes and she has to lay in her urine and stool. She has had intermittent epigastric pain but nothing severe. It was noted that over the past 24hours her diarrhea appeared more like melena. Rectal exam showed black and maroon stool. She admits to feeling light headed, no chest pain, no dyspnea, no cough. She tested positive for COVID back on 10/25/20 despite not sick contacts and no symptoms of COVID. She got her first COVID vaccine back on 10/22/20 and started with diarrhea afterwards which lead to her having hypovolemia, passing out and fracturing her left hip. In the ED she was borderline hypotensive but most pressures were 90-110 systolic, she was mentating well, making urine and a paez was placed. Hemoglobin noted to be 4.4 and she was typed and crossed for 2 units. K was 6.3, ordered calcium, insulin and dextrose. Discussed with Dr. Bragg, GI acid polymerization operator, he will see her later today. Will restore her volume, will check a COVID since she will need EGD. Allergies Allergy/AdvReac Type Severity Reaction Status Date / Time No Known Allergies Allergy Verified 11/11/20 07:25 Home Medications Medication Instructions Recorded Confirmed Type Dexcom G6 Meat Cutter #1 ea NS 07/29/19 07/23/20 Rx Dexcom G6 Sensor #3 ea NS 07/29/19 07/23/20 Rx Dexcom G6 Transmitter #1 ea NS 07/29/19 07/23/20 Rx blood sugar diagnostic #100 ea 11/24/19 07/23/20 Rx pen needle, diabetic 31 gauge x #500 box 11/24/19 07/23/20 Rx 5/16" syringe with needle 1 mL 27 x 1/2" #1 ea 01/04/20 07/23/20 Rx simvastatin 40 mg tablet 40 mg PO HS #90 tab 05/09/20 11/11/20 Rx Lantus Solostar U-100 Insulin 40 unit SUBCUT DAILY 11/11/20 11/11/20 History PNV cmb#95-ferrous fumarate-FA 1 tab PO DAILY 11/11/20 11/11/20 History [] acetaminophen [Tylenol] 975 mg PO Q8 11/11/20 11/11/20 History albuterol sulfate [Ventolin HFA] 1 puff INHALATION Q4H PRN 11/11/20 11/11/20 History ascorbic acid (vitamin C) 500 mg PO DAILY 11/11/20 11/11/20 History dulaglutide [Trulicity] 0.75 mg SUBCUT .DAILY EVERY 7 DAYS 11/11/20 11/11/20 History enoxaparin 60 mg SUBCUT Q12H 11/11/20 11/11/20 History menthol-zinc oxide [Calmoseptine] 1 applic TOPICAL QS 11/11/20 11/11/20 History mepolizumab [Nucala] 100 mg SUBCUT .EVERY 28 DAYS 11/11/20 11/11/20 History metformin 1,000 mg PO BID 11/11/20 11/11/20 History mometasone [Asmanex Twisthaler] 1 inh INHALATION AMHS 11/11/20 11/11/20 History nystatin 1 applic TOPICAL QS 11/11/20 11/11/20 History oxycodone 5 mg PO Q6 PRN 11/11/20 11/11/20 History oxycodone 10 mg PO Q6 PRN 11/11/20 11/11/20 History polyethylene glycol 3350 [Miralax] 17 g PO DAILY 11/11/20 11/11/20 History prednisolone sodium phosphate 1 drp OPL DAILY 11/11/20 11/11/20 History telmisartan 40 mg PO DAILY 11/11/20 11/11/20 History Past Med/Surg History Medical History Asthma Carpal tunnel syndrome on right Diabetic peripheral neuropathy associated with type 2 diabetes mellitus Dyslipidemia Esophageal reflux First degree atrioventricular block HTN (hypertension) Hx of fracture of femur Iron deficiency anemia secondary to inadequate dietary iron intake Mediastinal adenopathy Multiple pulmonary nodules Obesity, morbid, BMI 40.0-49.9 Obstructive sleep apnea refuses CPAP Osteopenia Paroxysmal tachycardia Respiratory failure Restless leg syndrome Selective deficiency of IgG Syncope Type 2 diabetes mellitus, with long-term current use of insulin Vitamin D deficiency Surgical History H/O total hip arthroplasty left H/O: hysterectomy History of bronchoscopy (~11/2017) by Dr. Churchill followed by a mediastinoscopy and biopsy in December 2017 History of tonsillectomy and adenoidectomy Hx of cataract extraction bilateral. 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 Hx of cholecystectomy Hx of colonoscopy (~2015) Hx of eye surgery left Hx of total knee arthroplasty bilateral S/P appy Family History Father Cardiovascular disease Diabetes Asthma Brother Diabetes Cardiac disorder Mother Breast cancer Other Family history non-contributory Social History Smoking Status: Never smoker Second Hand Exposure: No; Do You Dip or Chew Tobacco: No; Tobacco Cessation Education Requested by Patient: No Hx Alcohol Use: No Hx Substance Use: No Preferred Language: Turkmen Communication Ability: Effective Blockmason Required: No Beliefs That Will Affect Care: None marital status: Current Living Situation: Detention and Rehab Current Living Situation Comment: Rehab at [facility] current occupational status: retired Other Information That Helps Us Care for You: No Feels Safe at Home: Yes Safety Concerns: Feels Safe At This Time Assistive Devices: Walker and Wheelchair Review of Systems Review of Systems: All systems reviewed & are unremarkable except as noted in HPI & below Constitutional: + fatigue and + weakness; no fever, no chills and no sweats Respiratory: no cough and no dyspnea Cardiovascular: no chest pain and no edema Gastrointestinal: + abdominal pain, + nausea, + vomiting, + diarrhea/loose stools, + constant urge to pass stools, + blood in stools and + melena; no constipation Musculoskeletal: + joint pain (left hip) Neurologic: no syncope and no confusion Physical Exam Constitutional: well developed, well nourished, + ill appearing, + frail appearing, cooperative and + overweight; no acute distress Eyes: normal visual nielson by confrontation, + conjunctival abnormality (pale), PERRL and EOM intact bilaterally ENMT: external ear and nose normal, oropharynx normal Neck: trachea midline, no thyromegaly Respiratory: normal respiratory effort, lungs clear to auscultation Cardiovascular: RRR, no murmur, no edema Gastrointestinal (Abdomen): normal bowel sounds, soft, nontender, no hepatosplenomegaly Rectal Exam: + heme positive stool Musculoskeletal: no cyanosis or clubbing, extremities motor strength 5/5 Skin: no rashes, warm and dry Neurologic: patellar DTR's 2+ bilat, sensation intact and PERRL, EOMI, accommodation nl, no face palsy, no dysarthria Psychiatric: A+Ox3, euthymic affect Lymphatic: no cervical or axillary lymphadenopathy Results & Data Results & Data ([facility]) Vital Signs (Past 12 Hours) Vital Signs Temp Pulse Pulse Resp BP BP Pulse Ox 11/11/20 08:15 89 20 99/42 L 97 11/11/20 08:10 88 20 100 11/11/20 08:01 88 19 73/27 L 100 11/11/20 08:00 89 18 100 11/11/20 07:50 90 18 99 11/11/20 07:45 97 H 23 108/59 L 91 11/11/20 07:40 94 H 20 11/11/20 07:30 94 H 24 83 L 11/11/20 07:20 86 19 96 11/11/20 07:10 88 19 88 L 11/11/20 07:00 89 18 11/11/20 06:50 91 H 19 11/11/20 06:40 89 89 20 120/39 L 100 11/11/20 06:39 100 11/11/20 06:37 91 H 21 120/39 L 100 11/11/20 06:30 92 H 21 11/11/20 06:20 94 H 21 100 11/11/20 06:16 92 H 21 91/43 L 100 11/11/20 06:10 100 H 21 100 11/11/20 06:09 36.9 C 96 H 18 91/43 L 100 11/11/20 06:05 77 22 87 L Laboratory Results Laboratory Results - last 24 hr 11/11/20 11/11/20 11/11/20 06:47 06:47 06:47 WBC 13.97 H RBC 1.49 L Hgb 4.4 L* Hct 14.6 L* MCV 98.0 MCH 29.5 MCHC 30.1 L RDW Std Deviation 64.8 H RDW Coeff of Yevgeniy 18.7 H Plt Count 637 H MPV 9.8 Immature Gran % (Auto) 1.0 Neut % (Auto) 82.2 Lymph % (Auto) 8.9 Casey % (Auto) 7.3 Eos % (Auto) 0.5 Baso % (Auto) 0.1 Neut # (Auto) 11.47 H Lymph # (Auto) 1.25 Casey # (Auto) 1.02 H Eos # (Auto) 0.07 Baso # (Auto) 0.02 Immature Gran # (Auto) 0.14 H Absolute Nucleated RBC 0.02 H Nucleated RBC % (auto) 0.1 Polychromasia 1+ PT 10.7 INR 1.1 APTT 26.9 PTT Ratio 1.0 Sodium Potassium Chloride Carbon Dioxide Anion Gap BUN Creatinine Est Cr Clr Drug Dosing Est GFR ( Amer) Est GFR (Non-Af Amer) BUN/Creatinine Ratio Glucose Calcium Total Bilirubin AST ALT Alkaline Phosphatase Total Protein Albumin Globulin Albumin/Globulin Ratio Lipase Blood Type A Positive Antibody Screen NEGATIVE Crossmatch See Detail 11/11/20 06:47 WBC RBC Hgb Hct MCV MCH MCHC RDW Std Deviation RDW Coeff of Yevgeniy Plt Count MPV Immature Gran % (Auto) Neut % (Auto) Lymph % (Auto) Casey % (Auto) Eos % (Auto) Baso % (Auto) Neut # (Auto) Lymph # (Auto) Casey # (Auto) Eos # (Auto) Baso # (Auto) Immature Gran # (Auto) Absolute Nucleated RBC Nucleated RBC % (auto) Polychromasia PT INR APTT PTT Ratio Sodium 138 Potassium 6.3 H* Chloride 108 H Carbon Dioxide 27 Anion Gap 4.0 BUN 49 H Creatinine 1.01 Est Cr Clr Drug Dosing 59.6 Est GFR ( Amer) 62.2 Est GFR (Non-Af Amer) 53.7 BUN/Creatinine Ratio 48.6 H Glucose 137 H Calcium 7.3 L Total Bilirubin 0.6 AST 12 L ALT 11 L Alkaline Phosphatase 77 Total Protein 4.4 L Albumin 1.5 L Globulin 2.9 Albumin/Globulin Ratio 0.5 L Lipase 103 Blood Type Antibody Screen Crossmatch Medications Administered Current Inpatient Medications Sodium Chloride (Nss) 250 mls @ 15 mls/hr IV .[id number] PRN PRN Reason: For Transfusion Stop: 11/11/20 17:25 Code Status & VTE Plan VTE Prophylaxis Plan VTE Prophylaxis will be ordered: Yes Critical Care Time Critical Care Time: Yes Total Critical Care Time: 45 This case had a high probability of a clinically significant, sudden, or life threatening deterioration of this patient's condition which required my full and direct attention, intervention and personal management. PG Care Time/CCT Total # of Minutes Spent Total Time Spent with Patient: Total time spent is greater than 50% in coordination of care (as documented) at patient's floor/unit and/or counseling patient: Critical Care Time: Yes Total Critical Care Time: 45 Coding Level of Care Code 86771 Initial Inpt Care Lvl 3 Diagnoses Acute blood loss anemia D62 GI bleed K92.2 Hypotension I95.9 Hyperkalemia E87.5 Vomiting and diarrhea R11.10; R19.7 Chronic respiratory failure with hypoxia J96.11 Periprosthetic fracture around internal prosthetic left hip joint M97.02XA Encounter type: initial encounter Type 2 diabetes mellitus, with long-term current use of insulin E11.9; Z79.4 HTN (hypertension) I10 Lab test positive for detection of COVID-19 virus U07.1 Additional Codes Critical Care Time - Critical Care Time: Yes ([id number]) (1) Periprosthetic fracture around internal prosthetic left hip joint Encounter type: initial encounter Qualified Code(s): M97.02XA - Periprosthetic fracture around internal prosthetic left hip joint, initial encounter
[2020-11-11] MEDS ORDERED: SODIUM CHLORIDE 0.9% 1000ML 500 ML IV ONE (09:41)
[2020-11-11] MEDS ORDERED: ONDANSETRON INJ 2 MG/ML 2 ML VIAL IV PRN (09:41)
[2020-11-11] MEDS ORDERED: GLUCOSE 10 TABS/TUBE PO PRN (10:00)
[2020-11-11] MEDS ORDERED: GLUCOSE 40% GEL 15 GM TUBE PO PRN (10:00)
[2020-11-11] MEDS ORDERED: DEXTROSE 50% 50 ML SYRINGE IV PRN (10:00)
[2020-11-11] MEDS ORDERED: GLUCAGON FOR INJ 1 MG VIAL IM PRN (10:00)
[2020-11-11] MEDS ORDERED: CARBOHYDRATES FOR HYPOGLYCEMIA PO PRN (10:00)
[2020-11-11] MEDS: prednisoLONE sod phos 1% 10 ML BTL OPL SCH (10:28)
[2020-11-11] MEDS: NYSTATIN CR 15 GM TUBE EXT SCH ×2 (10:29→15:34)
[2020-11-11] MEDS: INSULIN ASPART 100 UNITS/ML 3 ML PEN SC SCH ×3 (10:29→18:40)
[2020-11-11] MEDS: PANTOprazole 40 MG in DEXTROSE 5% 100 ML IV SCH ×3 (10:30→20:16)
[2020-11-11] MEDS: FLUTICASONE FUROATE 100MCG 14 PUFFS/INHALER INH SCH (10:32)
--- NOTE | 2020-11-11 11:12 | Gastrointestinal Consultation ---
Date of Consultation November 11, 2020 Assessment & Plan (1) Melena: 75-year-old female with chronic respiratory failure who presents with melena and worsening of an acute on chronic anemia. It appears her hemoglobin is dropped by about 2 to 2-1/2 g since November 04. She is right now hemodynamically quite stable, I had a long discussion with her as well as her son today about endoscopy. They are unsure at this time if they want to undergo that and would prefer for this to be avoided. She does have a tenuous anesthesia state and would have to be discussed if they feel comfortable sedating here. Recommendations -Continue hemodynamic support with blood transfusion -Continue IV PPI -N.p.o. -Dr. Killian will return tomorrow and make the definitive decision with him, patient and family if to pursue EGD. -Call with any questions concerns History of Present Illness Attending Physician: Mak Gonzales, History of Present Illness 75 yo female with history of chronic hypoxic respiratory failure, pacemaker for AV node block, no history of upper GI pathology, and last colonoscopy was performed by Dr. Killian in 2015 at which time she had 2 adenomatous polyps. She has a history of recent syncope and collapse at the beginning of October with left hip periprosthetic fracture, transferred to [facility] from [facility] for extensive surgical correction. She was at [place] for nine days, discharged on 11/04 to [facility]. [facility], and as you can see her blood counts were copied and pasted into the note below, but she was discharged with a hemoglobin of between 6-1/2 and 7. She also had chronically elevated BUNs during the hospital stay when she was discharged on November 04. She is very unhappy with her current living arrangements and stated that she began to have a few loose bowel movements yesterday, they noted some blood and/or black stools and sent her to the emergency room today. Her hemoglobin was found to be 4.4 with stable hemodynamics. She denies any abdominal pain or nausea vomiting. She has been receiving Lovenox twice daily. Since presentation here at the hospital, she has had no further bowel movements for over 6 hours. She was started on IV PPI infusion, she is currently receiving her second unit of blood. She has some prolonged expiratory phase and mildly labored breathing, most recent blood pressure shows a blood pressure 153/72 with pulse 95. She feels tired frustrated, I did discuss with her about the necessity of likely undergoing endoscopy, she says at this time she is quite reluctant to undergo that. She states that she would like to try medical therapy if possible, I did speak with her son who also was in agreement that further anesthesia given her recent history would like to be avoided. Stool was noted to be black upon rectal exam per the ER MD. She was diagnosed or swab positive for Covid prior to her hip surgery here at [facility] prior to transfer, she is exhibited no symptoms this was 17 days ago. Results for HANNAH SUTTON ( ) as of 11/11/2020 11:01 11/01/2020 21:30 WBC: 13.16 (H) HGB: 7.9 (L) HCT: 24.7 (L) MCV: 89.2 Plt: 349 11/02/2020 04:20 WBC: 14.84 (H) HGB: 7.5 (L) HCT: 23.0 (L) MCV: 89.8 Plt: 337 11/03/2020 04:22 WBC: 16.17 (H) HGB: 6.4 (LL) HCT: 21.5 (L) MCV: 93.9 Plt: 381 11/03/2020 10:45 WBC: 16.31 (H) HGB: 7.4 (L) HCT: 23.6 (L) MCV: 88.4 Plt: 400 11/04/2020 05:50 WBC: 18.31 (H) HGB: 7.3 (L) HCT: 23.2 (L) MCV: 90.3 Plt: 473 (H) Allergies Allergy/AdvReac Type Severity Reaction Status Date / Time No Known Allergies Allergy Verified 11/11/20 07:25 Home Medications Medication Instructions Recorded Confirmed Type Dexcom G6 Mine Car Mechanic #1 ea NS 07/29/19 07/23/20 Rx Dexcom G6 Sensor #3 ea NS 07/29/19 07/23/20 Rx Dexcom G6 Transmitter #1 ea NS 07/29/19 07/23/20 Rx blood sugar diagnostic #100 ea 11/24/19 07/23/20 Rx pen needle, diabetic 31 gauge x #500 box 11/24/19 07/23/20 Rx 5/16" syringe with needle 1 mL 27 x 1/2" #1 ea 01/04/20 07/23/20 Rx simvastatin 40 mg tablet 40 mg PO HS #90 tab 05/09/20 11/11/20 Rx Lantus Solostar U-100 Insulin 40 unit SUBCUT DAILY 11/11/20 11/11/20 History PNV cmb#95-ferrous fumarate-FA 1 tab PO DAILY 11/11/20 11/11/20 History [] acetaminophen [Tylenol] 975 mg PO Q8 11/11/20 11/11/20 History albuterol sulfate [Ventolin HFA] 1 puff INHALATION Q4H PRN 11/11/20 11/11/20 History ascorbic acid (vitamin C) 500 mg PO DAILY 11/11/20 11/11/20 History dulaglutide [Trulicity] 0.75 mg SUBCUT .DAILY EVERY 7 DAYS 11/11/20 11/11/20 History enoxaparin 60 mg SUBCUT Q12H 11/11/20 11/11/20 History menthol-zinc oxide [Calmoseptine] 1 applic TOPICAL QS 11/11/20 11/11/20 History mepolizumab [Nucala] 100 mg SUBCUT .EVERY 28 DAYS 11/11/20 11/11/20 History metformin 1,000 mg PO BID 11/11/20 11/11/20 History mometasone [Asmanex Twisthaler] 1 inh INHALATION AMHS 11/11/20 11/11/20 History nystatin 1 applic TOPICAL QS 11/11/20 11/11/20 History oxycodone 5 mg PO Q6 PRN 11/11/20 11/11/20 History oxycodone 10 mg PO Q6 PRN 11/11/20 11/11/20 History polyethylene glycol 3350 [Miralax] 17 g PO DAILY 11/11/20 11/11/20 History prednisolone sodium phosphate 1 drp OPL DAILY 11/11/20 11/11/20 History telmisartan 40 mg PO DAILY 11/11/20 11/11/20 History Patient History Medical History (Updated 11/11/20 @ 11:18 by Aba Bragg MD) Asthma Carpal tunnel syndrome on right Diabetic peripheral neuropathy associated with type 2 diabetes mellitus Dyslipidemia Esophageal reflux First degree atrioventricular block HTN (hypertension) Hx of fracture of femur Iron deficiency anemia secondary to inadequate dietary iron intake Mediastinal adenopathy Multiple pulmonary nodules Obesity, morbid, BMI 40.0-49.9 Obstructive sleep apnea refuses CPAP Osteopenia Paroxysmal tachycardia Respiratory failure Restless leg syndrome Selective deficiency of IgG Syncope Type 2 diabetes mellitus, with long-term current use of insulin Vitamin D deficiency Surgical History H/O total hip arthroplasty left H/O: hysterectomy History of bronchoscopy (~11/2017) by Dr. Churchill followed by a mediastinoscopy and biopsy in December 2017 History of tonsillectomy and adenoidectomy Hx of cataract extraction bilateral. 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 Hx of cholecystectomy Hx of colonoscopy (~2015) Hx of eye surgery left Hx of total knee arthroplasty bilateral S/P appy Family History Father Cardiovascular disease Diabetes Asthma Brother Diabetes Cardiac disorder Mother Breast cancer Other Family history non-contributory Social History Smoking Status: Never smoker Second Hand Exposure: No; Hx Alcohol Use: No Hx Substance Use: No Preferred Language: Cymraes Communication Ability: Effective Geoscience Professor Required: No Beliefs That Will Affect Care: None marital status: Current Living Situation: Shelter and Rehab Current Living Situation Comment: Rehab at [facility] current occupational status: retired Feels Safe at Home: Yes Assistive Devices: Walker and Wheelchair Review of Systems Review of Systems: All systems reviewed & are unremarkable except as noted in Subjective Physical Exam Physical Exam: She is in no apparent distress, she is a lady awake alert oriented x3 Heart is regular Respiratory status shows a quite prolonged respiratory phase, poor effort, diminished in the bases Normal active soft nontender Obese Mildly pale skin Results & Data ([facility]) Vital Signs (Past 12 Hours) Vital Signs Temp Pulse Pulse Resp BP BP BP 11/11/20 11:00 36.9 C 100 H 21 153/72 H 11/11/20 10:30 36.6 C 95 H 21 98/51 L 11/11/20 10:15 36.8 C 99 H 21 106/38 L 11/11/20 09:43 36.8 C 86 23 108/62 11/11/20 09:19 36.5 C 95 H 16 115/72 11/11/20 09:10 36.6 C 95 H 16 97/46 L 11/11/20 08:55 36.7 C 97 H 18 91/48 L 11/11/20 08:40 36.9 C 96 H 18 90/51 L 11/11/20 08:31 98 H 21 11/11/20 08:30 95 H 18 89/63 L 11/11/20 08:24 36.5 C 95 H 21 108/54 L 11/11/20 08:20 94 H 18 11/11/20 08:16 91 H 18 11/11/20 08:15 89 20 99/42 L 11/11/20 08:10 88 20 11/11/20 08:01 88 19 73/27 L 11/11/20 08:00 89 18 11/11/20 07:50 90 18 11/11/20 07:45 97 H 23 108/59 L 11/11/20 07:40 94 H 20 11/11/20 07:30 94 H 24 11/11/20 07:20 86 19 11/11/20 07:10 88 19 11/11/20 07:00 89 18 11/11/20 06:50 91 H 19 11/11/20 06:40 89 89 20 120/39 L 11/11/20 06:39 11/11/20 06:37 91 H 21 120/39 L 11/11/20 06:30 92 H 21 11/11/20 06:20 94 H 21 11/11/20 06:16 92 H 21 91/43 L 11/11/20 06:10 100 H 21 11/11/20 06:09 36.9 C 96 H 18 91/43 L 11/11/20 06:05 77 22 Pulse Ox 11/11/20 11:00 100 11/11/20 10:30 95 11/11/20 10:15 94 11/11/20 09:43 100 11/11/20 09:19 95 11/11/20 09:10 100 11/11/20 08:55 93 11/11/20 08:40 95 11/11/20 08:31 75 L 11/11/20 08:30 77 L 11/11/20 08:24 82 L 11/11/20 08:20 97 11/11/20 08:16 100 11/11/20 08:15 97 11/11/20 08:10 100 11/11/20 08:01 100 11/11/20 08:00 100 11/11/20 07:50 99 11/11/20 07:45 91 11/11/20 07:40 11/11/20 07:30 83 L 11/11/20 07:20 96 11/11/20 07:10 88 L 11/11/20 07:00 11/11/20 06:50 11/11/20 06:40 100 11/11/20 06:39 100 11/11/20 06:37 100 11/11/20 06:30 11/11/20 06:20 100 11/11/20 06:16 100 11/11/20 06:10 100 11/11/20 06:09 100 11/11/20 06:05 87 L
[2020-11-11 11:15] LABS: Influenza A virus by PCR Negative (Neg); Influenza B virus by PCR Negative (Neg); RSV by PCR Negative (Neg)
[2020-11-11 11:44] LABS: SARS CoV2 RNA(COVID-19) InHosp POSITIVE (Negative)
[2020-11-11] MEDS ORDERED: FUROSEMIDE 20 MG in SYRINGE 0 ML IV SCH (12:00)
[2020-11-11 12:56] LABS: BUN Creatinine Ratio 54.9 (10-20); Calcium 8.1 mg/dl (8.5-10.1); Creatinine Clr Calc Pharmacy 62.1 ml/min; Est GFR (African American) 65.3; Est GFR (Non-African American) 56.3; Potassium 6.5 mmol/L (3.5-5.1)
[2020-11-11] MEDS ORDERED: FUROSEMIDE 20 MG in SYRINGE 0 ML IV STA (13:11)
--- NOTE | 2020-11-11 13:18 | Electrocardiogram Report ---
Test Reason : Blood Pressure : / mmHG Vent. Rate : 096 BPM Atrial Rate : 096 BPM P-R Int : 244 ms QRS Dur : 154 ms QT Int : 370 ms P-R-T Axes : 061 -78 069 degrees QTc Int : 467 ms Sinus rhythm with 1st degree A-V block Left axis deviation Right bundle branch block Abnormal ECG When compared with ECG of 24-OCT-2020 22:13, Nonspecific T wave abnormality no longer evident in Inferior leads T wave inversion less evident in Anterior leads Confirmed by Hank Parker ([id number]) on 11/11/2020 1:18:02 PM Referred By: REFERRED SELF Confirmed By:Bethel Parker
[2020-11-11 16:47] LABS: Hematocrit (blood only) 26.7 % (37-47); Hemoglobin 8.8 g/dL (12.0-16.0)
[2020-11-11 17:00] LABS: Appearance Urine Cloudy (Clear); Bacteria Urine Automated Negative (Negative); Bilirubin Urine Negative (Negative); Blood Urine Trace (Negative); Color Urine Yellow; Epithelial Cell Urine Auto >30 /lpf (0-5); Glucose Urine UA Negative (Negative); Ketones Urine Negative (Negative); Leukocyte Esterase Urine 1+ (Negative); Nitrite Urine Negative (Negative); Protein Urine Negative (Negative); Specific Gravity Urine 1.016 (1.000-1.030); Urobilinogen Urine Negative (Negative)
[2020-11-11 17:13] LABS: Uric Acid Crystals Urine Present (None Prsent)
[2020-11-11 17:15] LABS: BUN Creatinine Ratio 52.7 (10-20); Calcium 7.5 mg/dl (8.5-10.1); Creatinine Clr Calc Pharmacy 60.2 ml/min; Est GFR (African American) 62.9; Est GFR (Non-African American) 54.3; Potassium 6.1 mmol/L (3.5-5.1)
[2020-11-11] MEDS ORDERED: FUROSEMIDE 20 MG in SYRINGE 0 ML IV ONE (19:45)
[2020-11-11 20:08] LABS: Hematocrit (blood only) 26.2 % (37-47); Hemoglobin 8.5 g/dL (12.0-16.0)
[2020-11-11 20:59] LABS: BUN Creatinine Ratio 51.8 (10-20); Calcium 7.7 mg/dl (8.5-10.1); Creatinine Clr Calc Pharmacy 57.3 ml/min; Est GFR (African American) 59.3; Est GFR (Non-African American) 51.2; Potassium 6.2 mmol/L (3.5-5.1)
[2020-11-11] MEDS ORDERED: CALCIUM GLUCONATE 10% 1,000 MG in SODIUM CHLORIDE 0.9% 50 ML IV ONE (21:33)
[2020-11-11] MEDS ORDERED: INSULIN ASPART PER UNIT 10 UNITS in SYRINGE 0 ML SC STA (21:34)
--- NOTE | 2020-11-11 21:41 | Communication Note ---
Date of Service: November 11, 2020 Subjective: I was messaged about a patient with a potassium of 6.3 up from 6.2 prior. She was not having any pain, no palpitations. She had received insulin and glucose at 2PM, Lasix at 8:30PM. She can not receive laxatives due to bloody stool. Objective: Patient is minimally responsive to me. Appears to be fluid + HR slightly elevated at 97 A/P: - insulin 10U, Glucose 50 - Calcium gluconate 1000 - recheck BMP & Ca++ at midnight, consider another dose of Lasix at that time if appropriate - informed nursing if there is any changes on telemetry to inform me
[2020-11-11] MEDS ORDERED: INSULIN HUMAN REGULAR PER UNIT 10 UNITS in SYRINGE 9.9 ML IV ONE (21:45)
[2020-11-12] MEDS: INSULIN ASPART 100 UNITS/ML 3 ML PEN SC SCH ×5 (00:30→21:09)
[2020-11-12 00:42] LABS: BUN Creatinine Ratio 47.2 (10-20); Creatinine Clr Calc Pharmacy 51.9 ml/min; Est GFR (African American) 52.6; Est GFR (Non-African American) 45.4; Potassium 5.8 mmol/L (3.5-5.1)
[2020-11-12] MEDS: NYSTATIN CR 15 GM TUBE EXT SCH ×4 (01:19→23:43)
[2020-11-12] MEDS: PANTOprazole 40 MG in DEXTROSE 5% 100 ML IV SCH ×5 (01:20→21:09)
[2020-11-12 03:47] LABS: Hematocrit (blood only) 26.2 % (37-47); Hemoglobin 8.5 g/dL (12.0-16.0)
[2020-11-12 04:14] LABS: BUN Creatinine Ratio 47.9 (10-20); Calcium 8.1 mg/dl (8.5-10.1); Creatinine Clr Calc Pharmacy 55.2 ml/min; Est GFR (African American) 56.7; Est GFR (Non-African American) 48.9; Potassium 5.9 mmol/L (3.5-5.1)
[2020-11-12] MEDS: prednisoLONE sod phos 1% 10 ML BTL OPL SCH (08:35)
[2020-11-12] MEDS: FLUTICASONE FUROATE 100MCG 14 PUFFS/INHALER INH SCH (08:35)
--- NOTE | 2020-11-12 09:08 | Communication Note ---
Date of Service: November 12, 2020 Patient is a 75 yo female with anemia due to possible GI bleed. Based on patient wishes, we will cancel EGD that was tentatively scheduled for today. Patient is meeting with family today; if for some reason there is a change to the overall plan of care, would need to consider anesthesia & GI re- evaluation as anesthesia had reportedly recommended completing the EGD at a tertiary center due to O2 status. Please re-consult GI if needed.
[2020-11-12 09:14] LABS: Basophils # (auto) 0.02 K/uL (0-0.2); Basophils % (auto) 0.1 %; Eosinophils # (auto) 0.08 K/uL (0-0.5); Eosinophils % (auto) 0.5 %; Hematocrit (blood only) 25.6 % (37-47); Hemoglobin 8.2 g/dL (12.0-16.0); Immature Granulocytes # (auto) 0.11 K/uL (0.00-0.02); Immature Granulocytes % (auto) 0.7 %; Lymphocytes # (auto) 1.23 K/uL (1.2-3.4); Lymphocytes % (auto) 8.3 %; Mean Corpuscular Hemoglobin 30.3 pg (25-34); Mean Corpuscular Volume 94.5 fL (80-100); Mean Platelet Volume 10.2 fL (7.4-10.4); Monocytes # (auto) 1.18 K/uL (0.11-0.59); Monocytes % (auto) 7.9 %; Neutrophils # (auto) 12.25 K/uL (1.4-6.5); Neutrophils % (auto) 82.5 %; Platelet Count 504 K/uL (130-400); RDW Coefficient of Variation 16.7 % (11.5-14.5); RDW Standard Deviation 54.7 fL (36.4-46.3); Red Blood Count 2.71 M/uL (4.2-5.4); White Blood Count 14.87 K/uL (4.8-10.8)
[2020-11-12 10:01] LABS: Albumin Globulin Ratio 0.6 (0.9-2); Albumin Level 1.8 gm/dl (3.4-5.0); BUN Creatinine Ratio 48.9 (10-20); Bilirubin,Total 0.8 mg/dl (0.2-1); Calcium 8.2 mg/dl (8.5-10.1); Creatinine Clr Calc Pharmacy 54.5 ml/min; Est GFR (African American) 57.3; Est GFR (Non-African American) 49.5; Globulin 3.1 gm/dl (2.5-4.0); Magnesium 2.4 mg/dl (1.8-2.4); Phosphorus 3.6 mg/dl (2.5-4.9); Potassium 6.1 mmol/L (3.5-5.1); Total Protein 4.9 gm/dl (6.4-8.2)
--- NOTE | 2020-11-12 11:05 | Palliative Care Consultation ---
Date of Consultation November 12, 2020 Assessment & Plan (1) Palliative care encounter: Cady is a 75 year old female who presented to the [facility] from [facility] after nursing noticed her to have melena. She was at [facility] for rehabilitation s/p left hip fracture. Additional PMH includes DM2 hypotension, COPD, COVID-19, 2nd degree AV block, BPPV, SNHL, vitamin D deficiency, HLD and GERD. On admission her Hgb was 4.4 and her K+ was 6.1. She was started on a Protonix gtt, was given 3 UPRBC, and was given Lasix and Insulin to lower her K+. Conversation with the hospitalist and family over the weekend regarding her code status led to her being a DNR/DNI. GI was consulted for evaluation for an EGD. Palliatiive Care was consulted to discuss goals of care. I spoke with Cady in room 202. She was AAOx3 and able to follow commands and participate fully in our conversation with appropriate insight. She was tearful indicating that she was unsure if she wanted to proceed with an EGD. We discussed the risks vs benefits and what options she has. Since she received 3 UPRBC, her Hgb has risen to 8.5, now down to 8.2 with another CBC pending. Protonix gtt infusing and this ultimately could be transitioned to oral if she remains stable. She indicated that she has been in and out of the hospital so much over the past few months and really just wants to go home and be with her , Gabe of 56 years. She indicated that she would prefer being transferred to another SNF other than [facility] upon her discharge if possible. We discussed limited options due to her having a COVID-19 history and limitations with accepting facilities and bed availability. Later, around 1600, I met with her , and sons Jonh and Sumit at the bedside. They were granted a bedside visit today as she was unstable overnight and to assist with decision making. We all discussed the above with Cady present. Today, there have not been any clear visible signs of active bleeding. She has not had BRBPR or hematemesis. Should her next Hgb drop they are requesting an additional GI an an esthesia evaluation and are willing to proceed. From a pain standpoint, she has Percocet and Morphine ordered PRN and she has utilized ZERO doses. She is not experiencing any respiratory distress at this time. She is to have rehab for a 6 week period, and was about half way into her rehab when she was brought to [facility]. At this time, palliative will follow peripherally and if there would be any lynn ges, please contact us. (2) Acute blood loss anemia: (3) Acute hyperkalemia: (4) Periprosthetic fracture around internal prosthetic left hip joint: Encounter type: initial encounter Qualified Code(s): M97.02XA - Periprosthetic fracture around internal prosthetic left hip joint, initial encounter History of Present Illness Reason for Consultation: Goals of Care Requesting Physician: Dr. Gonzales Attending Physician: Christie Flores MD History of Present Illness Cady is a 75 year old female who presented to the [facility] from [facility] after nursing noticed her to have melena. She was at [facility] for rehabilitation s/p left hip fracture. Additional PMH includes DM2 hypotension, COPD, COVID-19, 2nd degree AV block, BPPV, SNHL, vitamin D deficiency, HLD and GERD. On admission her Hgb was 4.4 and her K+ was 6.1. She was started on a Protonix gtt, was given 3 UPRBC, and was given Lasix and Insulin to lower her K+. Conversation with the hospitalist and family over the weekend regarding her code status led to her being a DNR/DNI. GI was consulted for evaluation for an EGD. Palliative Care was consulted to discuss goals of care. Please see A/P for further details. Thanks for involving palliative care with this individual. Allergies Allergy/AdvReac Type Severity Reaction Status Date / Time No Known Allergies Allergy Verified 11/11/20 07:25 Home Medications Medication Instructions Recorded Confirmed Type Dexcom G6 Gum Cook #1 ea NS 07/29/19 07/23/20 Rx Dexcom G6 Sensor #3 ea NS 07/29/19 07/23/20 Rx Dexcom G6 Transmitter #1 ea NS 07/29/19 07/23/20 Rx blood sugar diagnostic #100 ea 11/24/19 07/23/20 Rx pen needle, diabetic 31 gauge x #500 box 11/24/19 07/23/20 Rx 5/16" syringe with needle 1 mL 27 x 1/2" #1 ea 01/04/20 07/23/20 Rx simvastatin 40 mg tablet 40 mg PO HS #90 tab 05/09/20 11/11/20 Rx Lantus Solostar U-100 Insulin 40 unit SUBCUT DAILY 11/11/20 11/11/20 History PNV cmb#95-ferrous fumarate-FA 1 tab PO DAILY 11/11/20 11/11/20 History [] acetaminophen [Tylenol] 975 mg PO Q8 11/11/20 11/11/20 History albuterol sulfate [Ventolin HFA] 1 puff INHALATION Q4H PRN 11/11/20 11/11/20 History ascorbic acid (vitamin C) 500 mg PO DAILY 11/11/20 11/11/20 History dulaglutide [Trulicity] 0.75 mg SUBCUT .DAILY EVERY 7 DAYS 11/11/20 11/11/20 History enoxaparin 60 mg SUBCUT Q12H 11/11/20 11/11/20 History menthol-zinc oxide [Calmoseptine] 1 applic TOPICAL QS 11/11/20 11/11/20 History mepolizumab [Nucala] 100 mg SUBCUT .EVERY 28 DAYS 11/11/20 11/11/20 History metformin 1,000 mg PO BID 11/11/20 11/11/20 History mometasone [Asmanex Twisthaler] 1 inh INHALATION AMHS 11/11/20 11/11/20 History nystatin 1 applic TOPICAL QS 11/11/20 11/11/20 History oxycodone 5 mg PO Q6 PRN 11/11/20 11/11/20 History oxycodone 10 mg PO Q6 PRN 11/11/20 11/11/20 History polyethylene glycol 3350 [Miralax] 17 g PO DAILY 11/11/20 11/11/20 History prednisolone sodium phosphate 1 drp OPL DAILY 11/11/20 11/11/20 History telmisartan 40 mg PO DAILY 11/11/20 11/11/20 History Patient History Medical History (Updated 11/12/20 @ 16:59 by TIFFANY Graham) Asthma Carpal tunnel syndrome on right Diabetic peripheral neuropathy associated with type 2 diabetes mellitus Dyslipidemia Esophageal reflux First degree atrioventricular block HTN (hypertension) Hx of fracture of femur Iron deficiency anemia secondary to inadequate dietary iron intake Mediastinal adenopathy Multiple pulmonary nodules Obesity, morbid, BMI 40.0-49.9 Obstructive sleep apnea refuses CPAP Osteopenia Palliative care encounter Paroxysmal tachycardia Respiratory failure Restless leg syndrome Selective deficiency of IgG Syncope Type 2 diabetes mellitus, with long-term current use of insulin Vitamin D deficiency Surgical History H/O total hip arthroplasty left H/O: hysterectomy History of bronchoscopy (~11/2017) by Dr. Churchill followed by a mediastinoscopy and biopsy in December 2017 History of tonsillectomy and adenoidectomy Hx of cataract extraction bilateral. 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 Hx of cholecystectomy Hx of colonoscopy (~2015) Hx of eye surgery left Hx of total knee arthroplasty bilateral S/P appy Family History Father Cardiovascular disease Diabetes Asthma Brother Diabetes Cardiac disorder Mother Breast cancer Other Family history non-contributory Social History Smoking Status: Never smoker Second Hand Exposure: No; Hx Alcohol Use: No Hx Substance Use: No Preferred Language: Nepali Communication Ability: Effective Water Purifier Required: No Beliefs That Will Affect Care: None marital status: Current Living Situation: Custodial and Rehab Current Living Situation Comment: Rehab at [facility] current occupational status: retired Feels Safe at Home: Yes Assistive Devices: None Review of Systems Review of Systems: [place] System Assessment Scale Pain: 1/3 Nausea: 0/3 Depression: 1/3 Anxiety: 1/3 Palliative Performance Scale: 40% Physical Exam Constitutional: + obese, cooperative and comfortable; no acute distress Neck: trachea midline, no thyromegaly Respiratory: normal respiratory effort; no labored breathing and does not use accessory muscles Auscultation: + diminished lung sounds Cardiovascular: Rate/Rhythm: regular rate and regular rhythm Heart Sounds: normal S1 and normal S2 Gastrointestinal (Abdomen): normal bowel sounds, soft, nontender, no hepatosplenomegaly Percussion/Palpation: abdomen soft; no guarding and no ascites Skin: no rashes, warm and dry + pallor Psychiatric: A+Ox3, euthymic affect Insight: good insight Judgement: good judgement Genitourinary: indwelling paez catheter - concentrated yellow urine Results & Data ([facility]) Vital Signs (Past 12 Hours) Vital Signs Temp Pulse Pulse Resp BP Pulse Ox 11/12/20 07:19 37.0 C 87 22 120/68 98 11/12/20 07:00 85 11/12/20 03:14 36.6 C 88 18 141/61 H 98 11/11/20 23:59 81 11/11/20 23:33 36.6 C 94 H 18 126/65 98 PG Care Time/CCT Total # of Minutes Spent Total Time Spent with Patient: Total time spent is greater than 50% in coordination of care (as documented) at patient's floor/unit and/or counseling patient: 100 Coding Level of Care Code 52886 Inpt Consult Level 4 Diagnoses Palliative care encounter Z51.5 Acute blood loss anemia D62 Acute hyperkalemia E87.5 Periprosthetic fracture around internal prosthetic left hip joint M97.02XA Encounter type: initial encounter Time Spent (min) 100
[2020-11-12] MEDS ORDERED: INSULIN HUMAN REGULAR PER UNIT 10 UNITS in SYRINGE 9.9 ML IV ONE (11:15)
[2020-11-12] MEDS ORDERED: DEXTROSE 50% 50 ML SYRINGE IV ONE (11:15)
[2020-11-12] MEDS ORDERED: CALCIUM GLUCONATE 10% 1,000 MG in SODIUM CHLORIDE 0.9% 50 ML IV ONE ×2 (11:15→23:20)
--- NOTE | 2020-11-12 15:48 | Hospitalist Progress Note ---
Date of Service November 12, 2020 Assessment & Plan (1) Acute blood loss anemia: presents with Hb of 4.4 and low normal blood pressure, one reading in 70's systolic last known hemoglobin at the beginning of the month was 10.5 when she was admitted for periprosthetic hip fracture on the left and then was around 7.5 when she was discharged from [facility] on 11/04 patient with several days of diarrhea, in past 24 hours noted to have melena by staff at [facility] some intermittent abdominal pain, vomited once but not coffee ground emesis Now status post 4 units PRBCs, hemoglobin stable today at 8.5, coags normal GI and anesthesia canceled the EGD for possible comorbidities, but patient not agreeable to transfer to tertiary care Continue Protonix drip -HOLD Lovenox from post-op hip--> Ortho notes say to stay on this for 2 weeks only anyway which is now at this point After palliative care consultation, patient is agreeable to EGD only at [facility] if continues to have bleeding and hemoglobin drops. Follow CBC in the morning (2) GI bleed: several days of diarrhea and now with melena past 24 hours prior to admission upper GI bleed most likely given elevated BUN and normal creatinine noted that she was on Lovenox BID for DVT prophylaxis at [facility] which is now on hold (3) Hypotension: most pressures have been low normal, 90-120 systolic had one reading that was 70's systolic but the next one was 99 systolic mentating clearly, making urine but low side Now s/p 4 units PRBC and NS bolus BPs improved Holding home telmisartan (4) Hyperkalemia: K of 6.3 on admission and remains persistently elevated but a bit lower today at 5.9 after multiple rounds of insulin and D50, IV Lasix, and calcium gluconate was also given yesterday and today - no evidence of hemolysis reported on sample Cr is normal she was reportedly taking ARB which would be contributing and is now on hold no changes on tele monitor Continue to follow BMP and treat accordingly if remains elevated (5) Vomiting and diarrhea: Zofran PRN, no signs of coffee ground emesis-now improved Advance to full liquids diet for today (6) Chronic respiratory failure with hypoxia: stable on her 3L, no respiratory distress (7) Periprosthetic fracture around internal prosthetic left hip joint: suffered fracture at the beginning of February, was admitted 10/25/20 transferred to [facility] on 10/25 and she said she had surgical correction of the fracture on 10/[address] [facility] for rehab but she said she was not doing much there-is not allowed to bear weight but was doing bed to chair transfers with a Jj lift no pain in left hip at this time once the GI bleed is resolved will get PT/OT she is adamant about not going back to [facility], consult CM -Review of orthopedic discharge summary notes that she should have dressing rem ly and emmanuel removed at the 2-week point which would be now-she is supposed to be having a telemedicine appointment with orthopedics tomorrow-I called [facility] orthopedics and left a message for them to call me back for further instructions (8) Type 2 diabetes mellitus, with long-term current use of insulin: hold Lantus while NPO Novolog SS q6 gave regular insulin 10 units with dextrose in the ED for K at multiple locations (9) HTN (hypertension): hold anti-hypertensives with low BP and GI bleeding (10) Lab test positive for detection of COVID-19 virus: patient received vaccine back on 10/22 had diarrhea/vomiting after getting vaccine, caused her to pass out and fracture left hip she tested positive for COVID PCR on 10/25, only had GI symptoms, never had pneumonia. Test remains positive now but she is off precautions as it has been over 3 weeks no sick contacts, all of her family has tested negative according to her son Ankit (11) DVT prophylaxis: SCDs only Disposition-continued stay in PCU DNR/DNI Appreciate palliative care consultation for goals of care discussion Admission and Anticipated Discharge Date Admission Date: November 11, 2020 Subjective No further bloody stools today. She denies pain in the hip at the time. We discussed her condition and prognosis and after consultation with palliative care and after family visit, she is decided that she would be agreeable to an EGD only at [facility] if her hemoglobin drops further and she continues to bleed. Denies chest pain or shortness of breath. I discussed her care with palliative care nurse practitioner. Telemetry with normal sinus rhythm, PACs, rates 80s to 90s Review of Systems Review of Systems: All systems reviewed & are unremarkable except as noted in HPI & below Physical Exam Constitutional: WD/WN, vitals as above + obese Eyes: + anicteric sclerae Neck: trachea midline, no thyromegaly Respiratory: normal respiratory effort, lungs clear to auscultation Cardiovascular: RRR, no murmur, no edema Chest (Breasts): Chest: normal inspection of chest Gastrointestinal (Abdomen): normal bowel sounds, soft, nontender, no hepatosplenomegaly Musculoskeletal: Extremities: + extremities abnormal to inspection (Left hip with dressing in place with surrounding edema), no cyanosis and no clubbing Skin: no rashes, warm and dry Neurologic: moves all extremities and awake; no focal motor deficits Psychiatric: Orientation: alert and oriented x 3 Speech: normal rate/rhythm/volume of speech Affect: + tearful affect Thought Process: goal directed thought process Genitourinary: + abnormal external appearance (Olivares catheter in place) Results & Data Results & Data ([facility]) Vital Signs (Past 12 Hours) Vital Signs Temp Pulse Pulse Resp BP BP Pulse Ox 11/12/20 15:14 37 C 88 20 132/72 99 11/12/20 14:55 89 11/12/20 11:24 36.9 C 88 18 116/61 100 11/12/20 07:19 37.0 C 87 22 120/68 98 11/12/20 07:00 85 Laboratory Results Laboratories reviewed PG Care Time/CCT Total # of Minutes Spent Total Time Spent with Patient: Total time spent is greater than 50% in coordination of care (as documented) at patient's floor/unit and/or counseling patient: Coding Level of Care Code 63018 Subseq Hosp Care Lvl 3 Diagnoses Acute blood loss anemia D62 GI bleed K92.2 Hypotension I95.9 Hyperkalemia E87.5 Vomiting and diarrhea R11.10; R19.7 Chronic respiratory failure with hypoxia J96.11 Periprosthetic fracture around internal prosthetic left hip joint M97.02XA Encounter type: initial encounter Type 2 diabetes mellitus, with long-term current use of insulin E11.9; Z79.4 HTN (hypertension) I10 Lab test positive for detection of COVID-19 virus U07.1 DVT prophylaxis Z29.9 (1) Periprosthetic fracture around internal prosthetic left hip joint Encounter type: initial encounter Qualified Code(s): M97.02XA - Periprosthetic fracture around internal prosthetic left hip joint, initial encounter
[2020-11-12 15:52] LABS: Hematocrit (blood only) 27.2 % (37-47); Hemoglobin 8.6 g/dL (12.0-16.0); Mean Corpuscular Hgb Conc 31.6 g/dL (32-36); Mean Corpuscular Volume 94.8 fL (80-100); Mean Platelet Volume 10.2 fL (7.4-10.4); Platelet Count 515 K/uL (130-400); RDW Coefficient of Variation 16.7 % (11.5-14.5); RDW Standard Deviation 55.7 fL (36.4-46.3); Red Blood Count 2.87 M/uL (4.2-5.4); White Blood Count 15.92 K/uL (4.8-10.8)
[2020-11-12 16:14] LABS: BUN Creatinine Ratio 50.1 (10-20); Calcium 8.3 mg/dl (8.5-10.1); Creatinine Clr Calc Pharmacy 55.1 ml/min; Potassium 5.8 mmol/L (3.5-5.1)
[2020-11-12] MEDS ORDERED: INSULIN HUMAN REGULAR PER UNIT 10 UNITS in SYRINGE 9.9 ML IV STA ×2 (17:03→23:21)
[2020-11-12] MEDS ORDERED: DEXTROSE 50% 50 ML SYRINGE IV STA ×2 (17:03→23:20)
[2020-11-12] MEDS ORDERED: FUROSEMIDE 20 MG in SYRINGE 0 ML IV ONE (17:15)
[2020-11-12] MEDS ORDERED: Nursing to Pharmacy Communication SCH (21:00)
[2020-11-12] MEDS: MELATONIN 3 MG TAB PO PRN (21:18)
[2020-11-12 22:11] LABS: BUN Creatinine Ratio 48.8 (10-20); Calcium 8.4 mg/dl (8.5-10.1); Creatinine Clr Calc Pharmacy 50.3 ml/min; Est GFR (African American) 52.1; Est GFR (Non-African American) 44.9
[2020-11-12] MEDS ORDERED: FUROSEMIDE 40 MG in SYRINGE 0 ML IV ONE (23:16)
--- NOTE | 2020-11-12 23:29 | Communication Note ---
Date of Service: November 12, 2020 Subjective: Nursing notified that patient had a potassium of 6. Objective: Patient has UOP of 300 over the last 12 hours. HR 89, BP 154/46 A/P: - placed order for Lasix 40 - Calcium Gluconate - Insulin 10U, 50 Dex - recheck in AM
[2020-11-12] MEDS ORDERED: FUROSEMIDE 40 MG/4 ML VIAL IV ONE (23:30)
[2020-11-13] MEDS: PANTOprazole 40 MG in DEXTROSE 5% 100 ML IV SCH ×2 (03:40→09:27)
[2020-11-13 06:09] LABS: Eosinophils # (auto) 0.08 K/uL (0-0.5); Eosinophils % (auto) 0.7 %; Hematocrit (blood only) 23.2 % (37-47); Hemoglobin 7.5 g/dL (12.0-16.0); Immature Granulocytes # (auto) 0.08 K/uL (0.00-0.02); Immature Granulocytes % (auto) 0.7 %; Mean Corpuscular Hemoglobin 30.5 pg (25-34); Mean Corpuscular Hgb Conc 32.3 g/dL (32-36); Mean Corpuscular Volume 94.3 fL (80-100); Mean Platelet Volume 10.2 fL (7.4-10.4); Monocytes # (auto) 1.07 K/uL (0.11-0.59); Monocytes % (auto) 8.8 %; Neutrophils # (auto) 9.88 K/uL (1.4-6.5); Neutrophils % (auto) 80.8 %; Platelet Count 422 K/uL (130-400); RDW Coefficient of Variation 16.5 % (11.5-14.5); RDW Standard Deviation 54.7 fL (36.4-46.3); Red Blood Count 2.46 M/uL (4.2-5.4); White Blood Count 12.21 K/uL (4.8-10.8)
[2020-11-13 06:37] LABS: Calcium 7.9 mg/dl (8.5-10.1); Creatinine Clr Calc Pharmacy 54.7 ml/min; Est GFR (African American) 57.3; Est GFR (Non-African American) 49.5
[2020-11-13 06:42] LABS: Polychromasia 1+
[2020-11-13] MEDS ORDERED: SODIUM CHLORIDE 0.9% 250 ML IV PRN (07:24)
--- NOTE | 2020-11-13 07:40 | Hospitalist Progress Note ---
Date of Service November 13, 2020 Assessment & Plan (1) Acute blood loss anemia: Presented with Hb of 4.4 and low normal blood pressure after having melena, one BP reading in 70's systolic upon arrival last known hemoglobin at the beginning of the month was 10.5 when she was admitted for periprosthetic hip fracture on the left and then was around 7.5 when she was discharged from [facility] on 11/04 patient with several days of diarrhea, in past 24 hours noted to have melena by staff at [facility] some intermittent abdominal pain, vomited once but not coffee ground emesis Initially given 3 units PRBCs, hemoglobin was stable at 8.5, coags normal. GI and anesthesia canceled the EGD on Thursday for possible comorbidities, but patient not agreeable to transfer to tertiary care Patient continued to have burgundy colored stools and hemoglobin dropped to 7.5 and was mildly hypotensive on the morning of 11/13 Patient agreeable to EGD. Anesthesia consultation and GI consultation appreciated EGD showed 2 no longer actively bleeding ulcers in the duodenum Give another 1 unit of PRBCs on 11/13 Continue Protonix and convert to 40 mg IV twice daily-then will need 2 to 3 months of p.o. Protonix twice daily -Continue to HOLD Lovenox from post-op hip--> Ortho notes say to stay on this for 2 weeks only anyway which is now at this point Follow CBC in the morning (2) GI bleed: With melena as above upper GI bleed most likely given elevated BUN and normal creatinine noted that she was on Lovenox BID for DVT prophylaxis at [facility] which is now on hold Now status post EGD on 11/13 which showed duodenal ulcers as above No longer actively bleeding Continue Protonix (3) Hypotension: Blood pressures were low upon arrival and now improving after PRBC transfusions mentating clearly, making urine Now s/p 4 units PRBC and NS bolus BPs improved Continue holding home telmisartan (4) Hyperkalemia: K of 6.3 on admission and remains persistently elevated but improved today at 5.0 after multiple rounds of insulin and D50, IV Lasix, and calcium gluconate - no evidence of hemolysis reported on sample Cr is normal she was reportedly taking ARB which would be contributing and is now on hold no changes on tele monitor Continue to follow BMP and treat accordingly if remains elevated -We will begin a standing dose of Lasix 20 mg IV twice daily especially she is also volume overloaded and remains hyperkalemic (5) Vomiting and diarrhea: Zofran PRN, no signs of coffee ground emesis-now improved Advance to full liquids diet for today after EGD and to solids likely tomorrow if tolerating (6) Chronic respiratory failure with hypoxia: stable on her 3L, no respiratory distress (7) Periprosthetic fracture around internal prosthetic left hip joint: suffered fracture at the beginning of October, was admitted 10/25/20 transferred to [facility] on 10/25 and she said she had surgical correction of the fracture on 10/28 was at [facility] for rehab but she said she was not doing much there-is not allowed to bear weight but was doing bed to chair transfers with a Jj lift no pain in left hip at this time once the GI bleed is resolved will get PT/OT she is adamant about not going back to [facility], consult CM -Review of orthopedic discharge summary notes that she should have dressing removed and emmanuel removed at the 2-week point which would be now-I discussed her care with the orthopedic team at [facility] to remove emmanuel and place Steri-Strips. She is to remain nonweightbearing on the left hip and has follow- up planned on 12/12 with orthopedic surgeon (8) Type 2 diabetes mellitus, with long-term current use of insulin: hold Lantus while NPO Novolog SS q6 gave regular insulin 10 units with dextrose in the ED for K at multiple locations (9) HTN (hypertension): hold anti-hypertensives with low BP and GI bleeding (10) Lab test positive for detection of COVID-19 virus: patient received vaccine back on 10/22 had diarrhea/vomiting after getting vaccine, caused her to pass out and fracture left hip she tested positive for COVID PCR on 10/25, only had GI symptoms, never had pneumonia. Test remains positive now but she is off precautions as it has been over 3 weeks no sick contacts, all of her family has tested negative according to her son Ankit (11) Pressure ulcer: * Pressure ulcer of left medial dorsal foot, POA, unstageable * Pressure ulcer of left medial buttocks POA, stage I * Pressure ulcer of left posterior heel(s) POA, unstageable Pressure ulcer of left lateral ankle, POA, unstageable Pressure ulcer of right lower posterior lateral back, POA, stage I Wound care following, follow wound care recommendations Offload pressure (12) DVT prophylaxis: SCDs only Disposition-continued stay in PCU DNR/DNI Appreciate palliative care consultation for goals of care discussion Admission and Anticipated Discharge Date Admission Date: November 11, 2020 Subjective Patient had another burgundy colored stool overnight and hemoglobin dropped to 7.5 this morning. I transfused 1 more unit of PRBCs and she was made n.p.o.; and I reconsulted GI and anesthesia. She had an EGD which showed 2 ulcers in the duodenum not actively bleeding. I saw her after recovery from the EGD and she was doing well but a little bit drowsy. She denied abdominal pain or nausea and was feeling hungry. She denied chest pains or shortness of breath. I discussed her care with her son at length on the phone. Her urine output has picked up. She was given more treatment for hyperkalemia overnight. Telemetry with sinus rhythm, first-degree AV block, PVCs and rates in the 90s to 100s I also discussed her care with the orthopedic surgery team from [facility] regarding the appearance of her wound of the hip and they said it was okay to remove the dressing and emmanuel. Review of Systems Review of Systems: All systems reviewed & are unremarkable except as noted in HPI & below Physical Exam Constitutional: WD/WN, vitals as above + obese Eyes: + anicteric sclerae Neck: trachea midline, no thyromegaly Respiratory: normal respiratory effort, lungs clear to auscultation Cardiovascular: Rate/Rhythm: regular rate and regular rhythm Heart Sounds: no murmur Extremities: + edema (1+ pitting edema left lower extremity, trace pitting edema of the RLE) Chest (Breasts): Chest: normal inspection of chest Gastrointestinal (Abdomen): normal bowel sounds, soft, nontender, no hepatosplenomegaly Musculoskeletal: Extremities: + extremities abnormal to inspection (Left hip with dressing in place with surrounding edema), no cyanosis and no clubbing Skin: + lesion (Blisters,sloughing skin underneath dressing over L hip,2 cm from incision) Neurologic: moves all extremities and awake; no focal motor deficits Psychiatric: Orientation: alert and oriented x 3 Speech: normal rate/rhythm/volume of speech Genitourinary: + abnormal external appearance (Olivares catheter in place) Results & Data Results & Data ([facility]) Vital Signs (Past 12 Hours) Vital Signs Temp Pulse Pulse Resp BP BP Pulse Ox 11/13/20 07:24 90 11/13/20 07:07 37.0 C 90 19 93/42 L 98 11/13/20 03:27 36.9 C 92 H 22 119/47 L 98 11/12/20 23:40 36.9 C 89 18 162/70 H 98 11/12/20 21:00 36.5 C 89 18 154/46 H 98 Laboratory Results 11/13/20 11/13/20 11/13/20 Range/Units 16:17 13:10 09:31 WBC (4.8-10.8) K/uL RBC (4.2-5.4) M/uL Hgb (12.0-16.0) g/dL Hct (37-47) % MCV (80-100) fL MCH (25-34) pg MCHC (32-36) g/dL RDW Std Deviation (36.4-46.3) fL RDW Coeff of Yevgeniy (11.5-14.5) % Plt Count (130-400) K/uL MPV (7.4-10.4) fL Immature Gran % (Auto) % Neut % (Auto) % Lymph % (Auto) % Mcminn % (Auto) % Eos % (Auto) % Baso % (Auto) % Neut # (Auto) (1.4-6.5) K/uL Lymph # (Auto) (1.2-3.4) K/uL Mcminn # (Auto) (0.11-0.59) K/uL Eos # (Auto) (0-0.5) K/uL Baso # (Auto) (0-0.2) K/uL Immature Gran # (Auto) (0.00-0.02) K/uL Polychromasia Sodium (136-145) mmol/L Potassium 5.4 H (3.5-5.1) mmol/L Chloride (98-107) mmol/L Carbon Dioxide (21-32) mmol/L Anion Gap (3-11) BUN (7-18) mg/dl Creatinine (0.6-1.2) mg/dl Est Cr Clr Drug Dosing ml/min Est GFR ( Amer) Est GFR (Non-Af Amer) BUN/Creatinine Ratio (10-20) Glucose (70-99) mg/dl POC Glucose 145 H 158 H (70-99) mg/dl Calcium (8.5-10.1) mg/dl Blood Type Antibody Screen Crossmatch 11/13/20 11/13/20 11/13/20 Range/Units 07:36 05:19 05:19 WBC 12.21 H (4.8-10.8) K/uL RBC 2.46 L (4.2-5.4) M/uL Hgb 7.5 L (12.0-16.0) g/dL Hct 23.2 L (37-47) % MCV 94.3 (80-100) fL MCH 30.5 (25-34) pg MCHC 32.3 (32-36) g/dL RDW Std Deviation 54.7 H (36.4-46.3) fL RDW Coeff of Yevgeniy 16.5 H (11.5-14.5) % Plt Count 422 H (130-400) K/uL MPV 10.2 (7.4-10.4) fL Immature Gran % (Auto) 0.7 % Neut % (Auto) 80.8 % Lymph % (Auto) 9.0 % Mcminn % (Auto) 8.8 % Eos % (Auto) 0.7 % Baso % (Auto) 0.0 % Neut # (Auto) 9.88 H (1.4-6.5) K/uL Lymph # (Auto) 1.10 L (1.2-3.4) K/uL Mcminn # (Auto) 1.07 H (0.11-0.59) K/uL Eos # (Auto) 0.08 (0-0.5) K/uL Baso # (Auto) 0.00 (0-0.2) K/uL Immature Gran # (Auto) 0.08 H (0.00-0.02) K/uL Polychromasia 1+ Sodium 138 (136-145) mmol/L Potassium 5.0 D (3.5-5.1) mmol/L Chloride 105 (98-107) mmol/L Carbon Dioxide 27 (21-32) mmol/L Anion Gap 6.0 (3-11) BUN 55 H (7-18) mg/dl Creatinine 1.08 (0.6-1.2) mg/dl Est Cr Clr Drug Dosing 54.7 ml/min Est GFR ( Amer) 57.3 Est GFR (Non-Af Amer) 49.5 BUN/Creatinine Ratio 51.0 H (10-20) Glucose 114 H (70-99) mg/dl POC Glucose 143 H (70-99) mg/dl Calcium 7.9 L (8.5-10.1) mg/dl Blood Type Antibody Screen Crossmatch 11/12/20 11/12/20 11/11/20 Range/Units 21:44 21:09 06:47 WBC (4.8-10.8) K/uL RBC (4.2-5.4) M/uL Hgb (12.0-16.0) g/dL Hct (37-47) % MCV (80-100) fL MCH (25-34) pg MCHC (32-36) g/dL RDW Std Deviation (36.4-46.3) fL RDW Coeff of Yevgeniy (11.5-14.5) % Plt Count (130-400) K/uL MPV (7.4-10.4) fL Immature Gran % (Auto) % Neut % (Auto) % Lymph % (Auto) % Mcminn % (Auto) % Eos % (Auto) % Baso % (Auto) % Neut # (Auto) (1.4-6.5) K/uL Lymph # (Auto) (1.2-3.4) K/uL Mcminn # (Auto) (0.11-0.59) K/uL Eos # (Auto) (0-0.5) K/uL Baso # (Auto) (0-0.2) K/uL Immature Gran # (Auto) (0.00-0.02) K/uL Polychromasia Sodium 136 (136-145) mmol/L Potassium 6.0 H (3.5-5.1) mmol/L Chloride 104 (98-107) mmol/L Carbon Dioxide 28 (21-32) mmol/L Anion Gap 4.0 (3-11) BUN 57 H (7-18) mg/dl Creatinine 1.17 (0.6-1.2) mg/dl Est Cr Clr Drug Dosing 50.3 ml/min Est GFR ( Amer) 52.1 Est GFR (Non-Af Amer) 44.9 BUN/Creatinine Ratio 48.8 H (10-20) Glucose 119 H (70-99) mg/dl POC Glucose 124 H (70-99) mg/dl Calcium 8.4 L (8.5-10.1) mg/dl Blood Type A Positive Antibody Screen NEGATIVE Crossmatch See Detail PG Care Time/CCT Total # of Minutes Spent Total Time Spent with Patient: Total time spent is greater than 50% in coordination of care (as documented) at patient's floor/unit and/or counseling patient: Coding Level of Care Code 12090 Subseq Hosp Care Lvl 3 Diagnoses Acute blood loss anemia D62 GI bleed K92.2 Hypotension I95.9 Hyperkalemia E87.5 Vomiting and diarrhea R11.10; R19.7 Chronic respiratory failure with hypoxia J96.11 Periprosthetic fracture around internal prosthetic left hip joint M97.02XA Encounter type: initial encounter Type 2 diabetes mellitus, with long-term current use of insulin E11.9; Z79.4 HTN (hypertension) I10 Lab test positive for detection of COVID-19 virus U07.1 Pressure ulcer L89.90 DVT prophylaxis Z29.9 (1) Periprosthetic fracture around internal prosthetic left hip joint Encounter type: initial encounter Qualified Code(s): M97.02XA - Periprosthetic fracture around internal prosthetic left hip joint, initial encounter
[2020-11-13] MEDS: prednisoLONE sod phos 1% 10 ML BTL OPL SCH (08:24)
[2020-11-13] MEDS: FLUTICASONE FUROATE 100MCG 14 PUFFS/INHALER INH SCH (08:25)
[2020-11-13] MEDS: NYSTATIN CR 15 GM TUBE EXT SCH ×3 (08:25→23:38)
[2020-11-13] MEDS: INSULIN ASPART 100 UNITS/ML 3 ML PEN SC SCH ×4 (08:38→20:29)
--- NOTE | 2020-11-13 09:16 | History & Physical Bridge Note ---
Date of Service November 13, 2020 History & Physical Bridge Note I have examined the patient, reviewed the History & Physical and in the interval since the performance of the History & Physical I have noted the following changes of clinical significance: no changes noted. Patient is a 75 yo female with anemia and melena concerning for GI bleeding. H/H is usually around 11 at baseline, but was around 4 upon arrival to the ED. Since that time, she has been transfused multiple units PRBCs and H/H had been around 8.5 all day on 11/12/20. This AM, H/H is 7.5/23.2. Stool is charted as dark red. Patient is COVID19+ diagnosed on 10/24/20. She is now off precautions. After her initial decision to not seek further interventions, she now is agreeable to pursue an EGD only if it can be done at [facility]. She notes that she is apprehensive about proceeding with an EGD, but feels she will disappoint her children if she does not do this. Reviewed clinical case with Dr. Colunga of anesthesia. Pending patient's repeat potassium this morning, could move forward with an EGD today. Patient reports she has been NPO since prior to midnight. If patient is agreeable and K is wnl, will plan to move forward with an EGD. Keep NPO. Continue Pantoprazole 40 mg IV BID. Supervising Physician Co-Signing Physician Notes Agree with LAWRENCE Iqbal as above Abd: Soft, NT, ND, +BS Continue current therapy Proceed with EGD now.
[2020-11-13] MEDS ORDERED: FUROSEMIDE 20 MG in SYRINGE 0 ML IV ONE (10:15)
[2020-11-13] MEDS: PANTOprazole 40 MG in SYRINGE 0 ML IV SCH ×2 (10:17→20:20)
[2020-11-13] MEDS ORDERED: LIDOCAINE HCL 2% 2 ML VIAL/AMP(20MG/ML) INFIL ONE ×2 (11:31→12:27)
[2020-11-13] MEDS ORDERED: PROPOFOL IV EMULSION 10 MG/ML 20 ML VIAL IV ONE (11:31)
[2020-11-13] MEDS ORDERED: ATROPINE SULFATE 0.1 MG/ML 10ML SYR IV PRN (11:53)
[2020-11-13] MEDS ORDERED: ePHEDrine sulfate 50 MG/ML AMP IV PRN (11:53)
--- NOTE | 2020-11-13 11:53 | Anesthesiology Consultation ---
Date of Service November 13, 2020 Assessment & Plan ASA ASA4 Proposed Anesthesia Anesthesia Type: MAC Risk / Benefits Reviewed With: PT / POA / Parent / Guardian, Accepts Plan and Informed Consent Obtained History Surgery Operation Date: 11/12/20 16:30 Proposed Procedures p Esophagogastroduodenoscopy Dr Constantin Morales Case, DO Operation Date: 11/13/20 16:30 Proposed Procedures p Esophagogastroduodenoscopy Dr Constantin Morales Case, DO Height/Weight Height: 5 ft 5 in Weight: 112.9 kg Allergies Allergy/AdvReac Type Severity Reaction Status Date / Time No Known Allergies Allergy Verified 11/11/20 07:25 Medications Home Medications Medication Instructions Recorded Confirmed Last Taken Dexcom G6 Silver Spray Worker #1 ea NS 07/29/19 07/23/20 Unknown Dexcom G6 Sensor #3 ea NS 07/29/19 07/23/20 Unknown Dexcom G6 Transmitter #1 ea NS 07/29/19 07/23/20 Unknown blood sugar diagnostic #100 ea 11/24/19 07/23/20 Unknown pen needle, diabetic 31 gauge x #500 box 11/24/19 07/23/20 Unknown 5/16" syringe with needle 1 mL 27 x 1/2" #1 ea 01/04/20 07/23/20 Unknown simvastatin 40 mg tablet 40 mg PO HS #90 tab 05/09/20 11/11/20 10/24/20 Lantus Solostar U-100 Insulin 40 unit SUBCUT DAILY 11/11/20 11/11/20 Unknown PNV cmb#95-ferrous fumarate-FA 1 tab PO DAILY 11/11/20 11/11/20 Unknown [] acetaminophen [Tylenol] 975 mg PO Q8 11/11/20 11/11/20 Unknown albuterol sulfate [Ventolin HFA] 1 puff INHALATION Q4H PRN 11/11/20 11/11/20 Unknown ascorbic acid (vitamin C) 500 mg PO DAILY 11/11/20 11/11/20 Unknown dulaglutide [Trulicity] 0.75 mg SUBCUT .DAILY EVERY 7 DAYS 11/11/20 11/11/20 Unknown enoxaparin 60 mg SUBCUT Q12H 11/11/20 11/11/20 Unknown menthol-zinc oxide [Calmoseptine] 1 applic TOPICAL QS 11/11/20 11/11/20 Unknown mepolizumab [Nucala] 100 mg SUBCUT .EVERY 28 DAYS 11/11/20 11/11/20 Unknown metformin 1,000 mg PO BID 11/11/20 11/11/20 Unknown mometasone [Asmanex Twisthaler] 1 inh INHALATION AMHS 11/11/20 11/11/20 Unknown nystatin 1 applic TOPICAL QS 11/11/20 11/11/20 Unknown oxycodone 5 mg PO Q6 PRN 11/11/20 11/11/20 Unknown oxycodone 10 mg PO Q6 PRN 11/11/20 11/11/20 Unknown polyethylene glycol 3350 [Miralax] 17 g PO DAILY 11/11/20 11/11/20 Unknown prednisolone sodium phosphate 1 drp OPL DAILY 11/11/20 11/11/20 Unknown telmisartan 40 mg PO DAILY 11/11/20 11/11/20 Unknown Active Medications Generic Name Dose Route Start Last Admin Trade Name Freq PRN Reason Stop Dose Admin Fluticasone Furoate 1 puffs 11/11/20 10:30 11/13/20 08:25 Fluticasone Furoate 100mcg 14 Puffs/Inhaler INH 12/11/20 10:29 1 puffs QAM CRISTINA Administration Pantoprazole Sodium 40 mg/ 10 mls @ 5 mls/min 11/13/20 09:15 11/13/20 10:17 Syringe IV 12/13/20 09:14 5 mls/min BID@0900,2100 CRISTINA Administration Insulin Aspart 0 units 11/12/20 21:00 11/13/20 08:38 Insulin Aspart 100 Units/Ml 3 Ml Pen SC 12/11/20 09:40 Not Given ACHS CRISTINA Melatonin 3 mg 11/12/20 21:06 11/12/20 21:18 Melatonin 3 Mg Tab PO 12/12/20 21:05 3 mg HS PRN Administration Sleep Nystatin 1 appln 11/11/20 09:41 11/13/20 08:25 Nystatin Cr 15 Gm Tube EXT 11/23/20 23:00 1 appln QS CRISTINA Administration Prednisolone Sodium Phosphate 1 drops 11/11/20 09:41 11/13/20 08:24 Prednisolone Sod Phos 1% 10 Ml Btl OPL 12/11/20 09:40 1 drops DAILY CRISTINA Administration NPO Date Last Intake of Fluids: 11/12/20 Time Last Intake of Fluids: 17:00 Date Last Intake of Solids: 11/08/20 Time Last Intake of Solids: 17:00 Past Medical History Medical History Asthma Carpal tunnel syndrome on right Diabetic peripheral neuropathy associated with type 2 diabetes mellitus Dyslipidemia Esophageal reflux First degree atrioventricular block HTN (hypertension) Hx of fracture of femur Iron deficiency anemia secondary to inadequate dietary iron intake Mediastinal adenopathy Multiple pulmonary nodules Obesity, morbid, BMI 40.0-49.9 Obstructive sleep apnea refuses CPAP Osteopenia Palliative care encounter Paroxysmal tachycardia Respiratory failure Restless leg syndrome Selective deficiency of IgG Syncope Type 2 diabetes mellitus, with long-term current use of insulin Vitamin D deficiency Exercise / Class Metabolic Activity IV < 2 Limit ADL/Bedbound Past Family History Family History Father Cardiovascular disease Diabetes Asthma Brother Diabetes Cardiac disorder Mother Breast cancer Other Family history non-contributory Past Surgical History Surgical History H/O total hip arthroplasty left H/O: hysterectomy History of bronchoscopy (~11/2017) by Dr. Churchill followed by a mediastinoscopy and biopsy in December 2017 History of tonsillectomy and adenoidectomy Hx of cataract extraction bilateral. 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 Hx of cholecystectomy Hx of colonoscopy (~2015) Hx of eye surgery left Hx of total knee arthroplasty bilateral S/P appy Past Anesthesia History No Hx of Anesthesia Complications and No Family Hx of Anesthesia Complications History of PONV No Hx of PONV and No Hx of Motion Sickness Social History Smoking Status: Never smoker Do You Dip or Chew Tobacco: No Hx Alcohol Use: No Alcohol type: beer alcohol intake frequency: holidays/special occasions only Hx Substance Use: No substance use type: does not use Review of Systems denies fever/cough/ colds/ chest pain/ REJI +SOB at baseline denies REJI Physical Exam Vital Signs Last Vital Signs Temp 36.7 C 11/13/20 11:34 Pulse 80 11/13/20 11:34 Resp 20 11/13/20 11:34 BP 143/45 H 11/13/20 11:34 Pulse Ox 100 11/13/20 11:34 ENMT Mouth: + dentures; no TMJ abnormality and no dentition abnormality Thyromental Distance: > or= 3.5 Finger Breadths Mallampati Class: II Neck neck extension not limited Respiratory + labored breathing and + uses accessory muscles Auscultation: lungs clear to auscultation bilaterally Cardiovascular Rate/Rhythm: regular rate and regular rhythm Neurologic moves all extremities Psychiatric Orientation: alert and oriented x 3 Testing Laboratory Results 11/13/20 05:19 11/13/20 09:31 PT 10.7 Seconds (9.0-12.0) 11/11/20 06:47 INR 1.1 (0.9-1.1) 11/11/20 06:47 APTT 26.9 Seconds (21.0-31.0) 11/11/20 06:47 Urine Color Yellow 11/11/20 16:30 Urine Appearance Cloudy (Clear) A 11/11/20 16:30 Urine pH 5.0 (4.5-7.5) 11/11/20 16:30 Ur Specific [place] 1.016 (1.000-1.030) 11/11/20 16:30 Urine Protein Negative (Negative) 11/11/20 16:30 Urine Glucose (UA) Negative (Negative) 11/11/20 16:30 Urine Ketones Negative (Negative) 11/11/20 16:30 Urine Nitrite Negative (Negative) 11/11/20 16:30 Ur Leukocyte Esterase 1+ (Negative) H 11/11/20 16:30 Urine WBC (Auto) 5-10 /hpf (0-5) H 11/11/20 16:30 Urine RBC (Auto) 5-10 /hpf (0-4) H 11/11/20 16:30 U Hyaline Cast (Auto) 1-5 /lpf (0-5) 11/11/20 16:30 U Epithel Cells (Auto) >30 /lpf (0-5) H 11/11/20 16:30 Urine Bacteria (Auto) Negative (Negative) 11/11/20 16:30 Blood Type A Positive 11/11/20 06:47 Antibody Screen NEGATIVE 11/11/20 06:47 11/11/20 16:30 Urine Culture - Final Urine,Clean Catch Gram negative bacilli 11/13/20 07:36 POC Glucose 143 H
--- NOTE | 2020-11-13 12:38 | GI REPORT ---
Patient Name: Cady Resendiz Procedure Date: 11/13/2020 11:37 AM Date of : 1945 Admit Type: Inpatient Age: 75 Gender: Female Attending MD: Esteban Killian DO Procedure: Upper GI endoscopy Providers: Esteban Killian DO Referring MD: Christie Flores Md Indications: Acute post hemorrhagic anemia, Melena Medicines: Monitored Anesthesia Care Complications: No immediate complications. Estimated Blood Loss: Estimated blood loss: none. Procedure: Pre-Anesthesia Assessment: - Prior to the procedure, a History and Physical was performed, and patient medications and allergies were reviewed. The patient's tolerance of previous anesthesia was also reviewed. The risks and benefits of the procedure and the sedation options and risks were discussed with the patient. All questions were answered, and informed consent was obtained. Prior Anticoagulants: The patient has taken Lovenox (enoxaparin), last dose was 2 days prior to procedure. ASA Grade Assessment: IV - A patient with severe systemic disease that is a constant threat to life. After reviewing the risks and benefits, the patient was deemed in satisfactory condition to undergo the procedure. After obtaining informed consent, the endoscope was passed under direct vision. Throughout the procedure, the patient's blood pressure, pulse, and oxygen saturations were monitored continuously. The Endoscope was introduced through the mouth, and advanced to the second part of duodenum. The upper GI endoscopy was accomplished without difficulty. The patient tolerated the procedure well. Findings: The esophagus was normal. A small hiatal hernia was present. Localized mild inflammation characterized by erythema was found in the gastric antrum. Two non-bleeding superficial duodenal ulcers with no stigmata of bleeding were found in the second portion of the duodenum. The largest lesion was 5 mm in largest dimension. Impression: - Normal esophagus. - Small hiatal hernia. - Gastritis. - Non-bleeding duodenal ulcers with no stigmata of bleeding. - No specimens collected. Recommendation: - [facility]. - Advance diet as tolerated. - Continue present medications. Esteban Killian DO 11/13/2020 12:37:46 PM This report has been signed electronically. Note Initiated On: 11/13/2020 11:37 AM Number of Addenda: 0 I attest to the content of the Intraoperative Record and orders documented therein, exceptions below {[id number]}
--- NOTE | 2020-11-13 12:46 | Anesthesiology Progress Note ---
Date of Service November 13, 2020 Anesthesia Post Procedure Vital Signs Vital Signs: Temp Pulse Pulse Resp BP BP BP 11/13/20 12:40 80 16 117/48 L 11/13/20 12:25 73 16 90/52 L 11/13/20 11:34 36.7 C 80 20 143/45 H 11/13/20 11:25 37.0 C 87 20 107/45 L 11/13/20 10:05 37.0 C 87 20 107/45 L 11/13/20 09:05 36.7 C 86 18 126/46 L 11/13/20 08:35 36.6 C 84 20 111/38 L 11/13/20 08:20 36.9 C 87 18 119/34 L 11/13/20 08:04 36.6 C 86 18 130/39 L 11/13/20 07:24 90 11/13/20 07:07 37.0 C 90 19 93/42 L 11/13/20 03:27 36.9 C 92 H 22 119/47 L 11/12/20 23:40 36.9 C 89 18 162/70 H 11/12/20 21:00 36.5 C 89 18 154/46 H 11/12/20 15:14 37 C 88 20 132/72 11/12/20 14:55 89 Pulse Ox 11/13/20 12:40 99 11/13/20 12:25 100 11/13/20 11:34 100 11/13/20 11:25 11/13/20 10:05 11/13/20 09:05 11/13/20 08:35 11/13/20 08:20 11/13/20 08:04 11/13/20 07:24 11/13/20 07:07 98 11/13/20 03:27 98 11/12/20 23:40 98 11/12/20 21:00 98 11/12/20 15:14 99 11/12/20 14:55 Pain Intensity Abdomen: Pain Intensity: 4 Transfer of Care Handoff Completed per policy Notes Mental Status: alert / awake / arousable and participated in evaluation Patient Amnestic to Procedure: Yes Nausea / Vomiting: adequately controlled Pain: adequately controlled Airway Patency, RR, SpO2: stable & adequate BP & HR: stable & adequate Hydration State: stable & adequate Anesthetic Complications: no major complications apparent and Pt Satisfied with anesthetic care
[2020-11-13] MEDS: FUROSEMIDE 20 MG in SYRINGE 0 ML IV SCH (16:26)
--- NOTE | 2020-11-13 16:41 | Palliative Care Progress Note ---
Date of Service November 13, 2020 Assessment & Plan (1) Palliative care encounter: She had EGD earlier today which showed two nonbleeding duodenal ulcers, gastritis and a small hiatal hernia. She is on PPI. Plan is for SNF for further rehab. She has repeatedly said that she does not want to return to [facility]. She said to me that if there was no place to go, "then I'll go home with hospice". When I explored that further, her perception was that hospice would help her get better. We reviewed hospice as end of life care and that if she wants to try and get better, home care would be more appropriate. However, caregivers at home would be an issue, so she would like to try SNF. (2) Acute GI bleeding: (3) Diabetes mellitus: (4) Chronic respiratory failure with hypoxia: Admission and Anticipated Discharge Date Admission Date: November 11, 2020 Subjective Sleepy but easily arousable. She denies pain or nausea. Review of Systems Review of Systems: [place] Symptom Assessment Scale Pain 0/3 Dyspnea 1/3 Nausea 0/3 Fatigue 2/3 Drowsiness 1/3 Palliative Performance Score 40% Physical Exam Constitutional: + frail appearing ENMT: Mouth: + dry oral mucous membranes Respiratory: no labored breathing Cardiovascular: Rate/Rhythm: regular rate and regular rhythm Skin: warm and dry Neurologic: no focal motor deficits Psychiatric: Orientation: oriented x 3 Results & Data ([facility]) Vital Signs (Past 12 Hours) Vital Signs Temp Pulse Pulse Resp BP BP Pulse Ox 11/13/20 15:12 98.2 F 91 H 18 123/53 L 98 11/13/20 14:58 84 11/13/20 13:09 98.8 F 89 20 119/59 L 99 11/13/20 12:55 76 16 123/43 L 100 11/13/20 12:40 80 16 117/48 L 99 11/13/20 12:25 73 16 90/52 L 100 11/13/20 11:34 98.1 F 80 20 143/45 H 100 11/13/20 11:25 98.6 F 87 20 107/45 L 11/13/20 10:05 98.6 F 87 20 107/45 L 11/13/20 09:05 98.1 F 86 18 126/46 L 11/13/20 08:35 97.9 F 84 20 111/38 L 02/23/21 08:20 98.4 F 87 18 119/34 L 11/13/20 08:04 97.9 F 86 18 130/39 L 11/13/20 07:24 90 11/13/20 07:07 98.6 F 90 19 93/42 L 98 PG Care Time/CCT Total # of Minutes Spent Total Time Spent with Patient: Total time spent is greater than 50% in coordination of care (as documented) at patient's floor/unit and/or counseling patient: Coding Level of Care Code 38198 Subseq Hosp Care Lvl 2 Diagnoses Palliative care encounter Z51.5 Acute GI bleeding K92.2 Diabetes mellitus E11.69; Z79.4 Diabetes mellitus complication status: with other specified complication Diabetes mellitus terminologist insulin use: with nursing home use Diabetes mellitus type: type 2 Chronic respiratory failure with hypoxia J96.11 (1) Diabetes mellitus Diabetes mellitus complication status: with other specified complication Diabetes mellitus nursing home insulin use: with terminologist use Diabetes mellitus type: type 2 Qualified Code(s): E11.69 - Type 2 diabetes mellitus with other specified complication; Z79.4 - [facility] (current) use of insulin
[2020-11-13] MEDS: MELATONIN 3 MG TAB PO PRN (20:20)
[2020-11-14 06:20] LABS: Basophils # (auto) 0.01 K/uL (0-0.2); Basophils % (auto) 0.1 %; Eosinophils # (auto) 0.08 K/uL (0-0.5); Hematocrit (blood only) 28.7 % (37-47); Hemoglobin 9.2 g/dL (12.0-16.0); Immature Granulocytes # (auto) 0.05 K/uL (0.00-0.02); Immature Granulocytes % (auto) 0.6 %; Lymphocytes # (auto) 0.78 K/uL (1.2-3.4); Lymphocytes % (auto) 9.4 %; Mean Corpuscular Hemoglobin 30.5 pg (25-34); Mean Corpuscular Hgb Conc 32.1 g/dL (32-36); Mean Platelet Volume 10.3 fL (7.4-10.4); Monocytes # (auto) 0.85 K/uL (0.11-0.59); Monocytes % (auto) 10.2 %; Neutrophils # (auto) 6.53 K/uL (1.4-6.5); Neutrophils % (auto) 78.7 %; Platelet Count 348 K/uL (130-400); RDW Coefficient of Variation 16.1 % (11.5-14.5); RDW Standard Deviation 53.1 fL (36.4-46.3); Red Blood Count 3.02 M/uL (4.2-5.4)
[2020-11-14 06:47] LABS: Albumin Level 1.8 gm/dl (3.4-5.0); BUN Creatinine Ratio 50.7 (10-20); Bilirubin Direct 0.5 mg/dl (0-0.2); Creatinine Clr Calc Pharmacy 65.1 ml/min; Est GFR (African American) 72.5; Est GFR (Non-African American) 62.5; Potassium 4.5 mmol/L (3.5-5.1)
[2020-11-14 06:49] LABS: Bilirubin,Total 1.2 mg/dl (0.2-1); Total Protein 5.1 gm/dl (6.4-8.2)
[2020-11-14] MEDS: FLUTICASONE FUROATE 100MCG 14 PUFFS/INHALER INH SCH (08:04)
[2020-11-14] MEDS: NYSTATIN CR 15 GM TUBE EXT SCH ×2 (08:05→16:20)
[2020-11-14] MEDS: prednisoLONE sod phos 1% 10 ML BTL OPL SCH (08:05)
[2020-11-14] MEDS: INSULIN ASPART 100 UNITS/ML 3 ML PEN SC SCH ×4 (08:13→21:17)
[2020-11-14] MEDS: PANTOprazole 40 MG in SYRINGE 0 ML IV SCH ×2 (08:17→20:44)
[2020-11-14] MEDS: FUROSEMIDE 20 MG in SYRINGE 0 ML IV SCH ×2 (08:17→17:17)
--- NOTE | 2020-11-14 10:44 | Hospitalist Progress Note ---
Date of Service November 14, 2020 Assessment & Plan (1) Acute blood loss anemia: Presented with Hb of 4.4 and low normal blood pressure after having melena, one BP reading in 70's systolic upon arrival last known hemoglobin at the beginning of the month was 10.5 when she was admitted for periprosthetic hip fracture on the left and then was around 7.5 when she was discharged from [facility] on 11/04 patient with several days of diarrhea, and then noted to have melena by staff at [facility] te day of admission some intermittent abdominal pain, vomited once but not coffee ground emesis--> now resolved Initially given 3 units PRBCs, hemoglobin was stable at 8.5, coags normal. GI and anesthesia canceled the EGD on Thursday for possible comorbidities, but patient not agreeable to transfer to tertiary care Patient continued to have burgundy colored stools and hemoglobin dropped to 7.5 and was mildly hypotensive on the morning of 11/13 Patient agreeable to EGD. Anesthesia consultation and GI consultation appreciated EGD showed 2 no longer actively bleeding ulcers in the duodenum Give another 1 unit of PRBCs on 11/13 Hgb up to 9.2 and no further bleeding on 11/14, doing well Continue Protonix 40 mg IV twice daily x 1 more day then will need 2 to 3 months of p.o. Protonix twice daily -Continue to HOLD Lovenox from post-op hip--> Ortho notes say to stay on this for 2 weeks only anyway which is now at this point Follow CBC in the morning (2) GI bleed: With melena as above upper GI bleed most likely given elevated BUN and normal creatinine noted that she was on Lovenox BID for DVT prophylaxis at [facility] which is now discontinued Now status post EGD on 11/13 which showed duodenal ulcers as above No longer actively bleeding Continue Protonix (3) Peptic ulcer disease: as above (4) Hypotension: Blood pressures were low upon arrival and now improving after PRBC transfusions mentating clearly, making urine Now s/p 4 units PRBC and NS bolus Continue holding home telmisartan (5) Hyperkalemia: K of 6.3 on admission and remains persistently elevated but improved today at 5.0 after multiple rounds of insulin and D50, IV Lasix, and calcium gluconate - no evidence of hemolysis reported on sample Cr is normal she was reportedly taking ARB which would be contributing and is now on hold no changes on tele monitor K+ finally normalized after starting standing bid IV lasix dosing on 11/13--> K+ 4.5 on 11/14 Continue to follow BMP and treat accordingly if remains elevated -continue Lasix 20 mg IV twice daily especially she is also volume overloaded (6) Vomiting and diarrhea: resolved adv diet today to ADA/HH easy to chew/soft (7) Chronic respiratory failure with hypoxia: stable on her 3L, no respiratory distress (8) Periprosthetic fracture around internal prosthetic left hip joint: suffered fracture at the beginning of October, was admitted 10/25/20 transferred to [facility] on 10/25 and she said she had surgical correction of the fracture on 10/28 was at [facility] for rehab but she said she was not doing much there-is not allowed to bear weight but was doing bed to chair transfers with a Jj lift no pain in left hip at this time consult PT/OT today she is adamant about not going back to [facility], consult CM -I discussed her care with the orthopedic team at [facility] to remove emmanuel and place Steri-Strips on 11/13. She is to remain nonweightbearing on the left hip and has follow-up planned on 12/12 with orthopedic surgeon (9) Type 2 diabetes mellitus, with long-term current use of insulin: Glucose controlled -continue to hold home Lantus, Trulicity, metformin Novolog SS q6 gave regular insulin 10 units with dextrose in the ED for K on multiple occasions -now that advancing diet, may need to add Lantus back on-will start 5 units this AM (10) HTN (hypertension): hold anti-hypertensives with low BP and GI bleeding (11) Lab test positive for detection of COVID-19 virus: patient received vaccine back on 10/22 had diarrhea/vomiting after getting vaccine, caused her to pass out and fracture left hip she tested positive for COVID PCR on 10/25, only had GI symptoms, never had pneumonia. Test remains positive now but she is off precautions as it has been over 3 weeks no sick contacts, all of her family has tested negative according to her son Ankit (12) Pressure ulcer: * Pressure ulcer of left medial dorsal foot, POA, unstageable * Pressure ulcer of left medial buttocks POA, stage I * Pressure ulcer of left posterior heel(s) POA, unstageable Pressure ulcer of left lateral ankle, POA, unstageable Pressure ulcer of right lower posterior lateral back, POA, stage I Wound care following, follow wound care recommendations Offload pressure (13) Asymptomatic bacteriuria: UA is contaminated with epithelials Ur cx with GNR is asymptomatic, no treatment needed (14) Insomnia: increase melatonin to 6mg and make scheduled for tonight (15) DVT prophylaxis: SCDs only Disposition-continued stay in PCU DNR/DNI Appreciate palliative care consultation for goals of care discussion Admission and Anticipated Discharge Date Admission Date: November 11, 2020 Subjective Feels better, no bleeding in stool. No SOB over her usual, no hip pain. Is having trouble sleeping and melatonin 3mg took too long to help-is requesting to take 2 melatonin pills. Tele with SR, 1st degree AVB, PVCs, rates 90s Review of Systems Review of Systems: All systems reviewed & are unremarkable except as noted in HPI & below Physical Exam Constitutional: WD/WN, vitals as above + obese Eyes: + anicteric sclerae Neck: trachea midline, no thyromegaly Respiratory: normal respiratory effort, lungs clear to auscultation Cardiovascular: Rate/Rhythm: regular rate and regular rhythm Heart Sounds: no murmur Extremities: + edema (1+ pitting edema left lower extremity, trace pitting edema of the RLE) Chest (Breasts): Chest: normal inspection of chest Gastrointestinal (Abdomen): normal bowel sounds, soft, nontender, no hepatosplenomegaly Musculoskeletal: Extremities: + extremities abnormal to inspection (Left hip with dressing in place with surrounding edema), no cyanosis and no clubbing Skin: no rashes, warm and dry Neurologic: moves all extremities and awake; no focal motor deficits Psychiatric: Orientation: alert and oriented x 3 Speech: normal rate/rhythm/volume of speech Thought Process: goal directed thought process Genitourinary: + abnormal external appearance (Olivares catheter in place) Results & Data Results & Data ([facility]) Vital Signs (Past 12 Hours) Vital Signs Temp Pulse Pulse Resp BP BP Pulse Ox 11/14/20 07:38 89 11/14/20 07:01 36.5 C 92 H 19 113/57 L 97 11/14/20 04:41 36.5 C 92 H 18 163/66 H 96 11/13/20 23:52 36.7 C 92 H 18 123/67 98 Laboratory Results 11/14/20 05:50 11/14/20 05:50 Ur cx -GNR PG Care Time/CCT Total # of Minutes Spent Total Time Spent with Patient: Total time spent is greater than 50% in coordination of care (as documented) at patient's floor/unit and/or counseling patient: Coding Level of Care Code 88238 Subseq Hosp Care Lvl 3 Diagnoses Acute blood loss anemia D62 GI bleed K92.2 Peptic ulcer disease K27.9 Hypotension I95.9 Hyperkalemia E87.5 Vomiting and diarrhea R11.10; R19.7 Chronic respiratory failure with hypoxia J96.11 Periprosthetic fracture around internal prosthetic left hip joint M97.02XA Encounter type: initial encounter Type 2 diabetes mellitus, with long-term current use of insulin E11.9; Z79.4 HTN (hypertension) I10 Lab test positive for detection of COVID-19 virus U07.1 Pressure ulcer L89.90 Asymptomatic bacteriuria R82.71 Insomnia G47.00 DVT prophylaxis Z29.9 (1) Periprosthetic fracture around internal prosthetic left hip joint Encounter type: initial encounter Qualified Code(s): M97.02XA - Periprosthetic fracture around internal prosthetic left hip joint, initial encounter
[2020-11-14] MEDS: INSULIN GLARGINE SOLOSTAR 100 UNITS/ML 3 ML PEN SC SCH (12:05)
[2020-11-14 14:20] LABS: Cdiff Antigen Positive
[2020-11-14 14:22] LABS: Cdiff Toxin A+B Positive Cdiff Toxin (Negative)
[2020-11-14] MEDS: VANCOMYCIN HCL 125 MG/2.5ML SOLN PO SCH ×2 (16:20→18:00)
[2020-11-14] MEDS: RASPBERRY SYRUP 5 ML UDP PO SCH ×2 (16:20→17:59)
[2020-11-14] MEDS: MELATONIN 3 MG TAB PO SCH (20:44)
[2020-11-15] MEDS: RASPBERRY SYRUP 5 ML UDP PO SCH ×5 (05:46→23:29)
[2020-11-15] MEDS: VANCOMYCIN HCL 125 MG/2.5ML SOLN PO SCH ×5 (05:47→23:29)
[2020-11-15 06:08] LABS: Basophils # (auto) 0.01 K/uL (0-0.2); Basophils % (auto) 0.1 %; Eosinophils # (auto) 0.07 K/uL (0-0.5); Eosinophils % (auto) 0.8 %; Hematocrit (blood only) 27.6 % (37-47); Hemoglobin 8.9 g/dL (12.0-16.0); Immature Granulocytes # (auto) 0.06 K/uL (0.00-0.02); Immature Granulocytes % (auto) 0.7 %; Lymphocytes # (auto) 0.65 K/uL (1.2-3.4); Lymphocytes % (auto) 7.2 %; Mean Corpuscular Hemoglobin 30.8 pg (25-34); Mean Corpuscular Hgb Conc 32.2 g/dL (32-36); Mean Corpuscular Volume 95.5 fL (80-100); Mean Platelet Volume 10.4 fL (7.4-10.4); Monocytes # (auto) 0.89 K/uL (0.11-0.59); Monocytes % (auto) 9.9 %; Neutrophils # (auto) 7.31 K/uL (1.4-6.5); Neutrophils % (auto) 81.3 %; Platelet Count 351 K/uL (130-400); RDW Coefficient of Variation 15.8 % (11.5-14.5); RDW Standard Deviation 53.2 fL (36.4-46.3); Red Blood Count 2.89 M/uL (4.2-5.4); White Blood Count 8.99 K/uL (4.8-10.8)
[2020-11-15 06:36] LABS: BUN Creatinine Ratio 40.7 (10-20); Calcium 7.8 mg/dl (8.5-10.1); Creatinine Clr Calc Pharmacy 70.5 ml/min; Potassium 4.5 mmol/L (3.5-5.1)
[2020-11-15] MEDS: INSULIN GLARGINE SOLOSTAR 100 UNITS/ML 3 ML PEN SC SCH (09:03)
[2020-11-15] MEDS: INSULIN ASPART 100 UNITS/ML 3 ML PEN SC SCH ×4 (09:03→20:53)
[2020-11-15] MEDS: NYSTATIN CR 15 GM TUBE EXT SCH ×4 (09:04→23:29)
[2020-11-15] MEDS: prednisoLONE sod phos 1% 10 ML BTL OPL SCH (09:04)
[2020-11-15] MEDS: FUROSEMIDE 20 MG in SYRINGE 0 ML IV SCH ×2 (09:05→17:39)
[2020-11-15] MEDS: FLUTICASONE FUROATE 100MCG 14 PUFFS/INHALER INH SCH (09:05)
[2020-11-15] MEDS: PANTOprazole 40 MG in SYRINGE 0 ML IV SCH ×2 (09:05→21:15)
--- NOTE | 2020-11-15 10:39 | Palliative Care Progress Note ---
Date of Service November 15, 2020 Assessment & Plan (1) Palliative care encounter: Cady had an EGD yesterday showing two nonbleeding duodenal ulcers, along with gastritis and a hiatal hernia. When I visited her, OT was working with her. Unfortunately, she now has CDiff and is on medications for treatment. She does continue to require SNF for continued rehab s/p hip surgery. Case management is working diligently on other SNF placement options at the request of the patient. At this time, patient will continue with current treatment plan and no additional overt goals or symptom management needs. Palliative Care will sign off for now. Please re-involve if any additional needs arise. (2) Acute GI bleeding: Hgb was 4.4 on admission s/p 3 UPBC and an eventual EGD. EGD results: Two non bleeding duodenal ulcers. She remains on a PPI and will be discharged on one. Hgb trend from yesterday 9.2--> 8.9. Stable. (3) Diabetes mellitus: (4) Chronic respiratory failure with hypoxia: She has returned to baseline supplemental O2 requirement. On 3LNC. Admission and Anticipated Discharge Date Admission Date: November 11, 2020 Subjective Overall, feels better. Breathing has returned to baseline. Appears Hgb is stable and holding at 8.9 She was working with OT during my encounter. Please see A/P for further details. Review of Systems Review of Systems: [place] Symptom Assessment Scale Pain 1/3 Dyspnea 1/3 Nausea 0/3 Fatigue 1/3 Drowsiness 0/3 Palliative Performance Score 40% Physical Exam Constitutional: + obese, cooperative and comfortable; no acute distress Neck: trachea midline, no thyromegaly Respiratory: normal respiratory effort; no labored breathing and does not use accessory muscles Auscultation: + diminished lung sounds Cardiovascular: Rate/Rhythm: regular rate and regular rhythm Heart Sounds: normal S1 and normal S2 Gastrointestinal (Abdomen): normal bowel sounds, soft, nontender, no hepatosplenomegaly Percussion/Palpation: abdomen soft; no guarding and no ascites Skin: no rashes, warm and dry + pallor left hip incision with emmanuel. no erythema or drainage noted Psychiatric: A+Ox3, euthymic affect Insight: good insight Judgement: good judgement Results & Data ([facility]) Vital Signs (Past 12 Hours) Vital Signs Temp Pulse Pulse Resp BP BP Pulse Ox 02/25/21 07:52 96 H 11/15/20 07:09 37.1 C 97 H 20 131/52 L 96 11/15/20 03:47 36.6 C 100 H 20 117/41 L 95 11/15/20 00:00 36.8 C 97 H 20 100/51 L 97 11/14/20 22:53 91 H PG Care Time/CCT Total # of Minutes Spent Total Time Spent with Patient: Total time spent is greater than 50% in coordination of care (as documented) at patient's floor/unit and/or counseling patient: Total time spent 25 minutes with > 50% of that time spent assessing the patient, and discussing plan of care with patient and IDT Coding Level of Care Code 32049 Subseq Hosp Care Lvl 2 Diagnoses Palliative care encounter Z51.5 Acute GI bleeding K92.2 Diabetes mellitus E11.69; Z79.4 Diabetes mellitus complication status: with other specified complication Diabetes mellitus fdc insulin use: with fdc use Diabetes mellitus type: type 2 Chronic respiratory failure with hypoxia J96.11 Time Spent (min) 25 (1) Diabetes mellitus Diabetes mellitus complication status: with other specified complication Diabetes mellitus watermelon inspector insulin use: with fdc use Diabetes mellitus type: type 2 Qualified Code(s): E11.69 - Type 2 diabetes mellitus with other specified complication; Z79.4 - half-way (current) use of insulin
--- NOTE | 2020-11-15 13:54 | Hospitalist Progress Note ---
Date of Service November 15, 2020 Assessment & Plan (1) Acute blood loss anemia: Presented with Hb of 4.4 and low normal blood pressure after having melena, one BP reading in 70's systolic upon arrival last known hemoglobin at the beginning of the month was 10.5 when she was admitted for periprosthetic hip fracture on the left and then was around 7.5 when she was discharged from [facility] on 11/04 patient with several days of diarrhea, and then noted to have melena by staff at [facility] te day of admission some intermittent abdominal pain, vomited once but not coffee ground emesis--> now resolved Initially given 3 units PRBCs, hemoglobin was stable at 8.5, coags normal. GI and anesthesia canceled the EGD on Thursday for possible comorbidities, but patient not agreeable to transfer to tertiary care Patient continued to have burgundy colored stools and hemoglobin dropped to 7.5 and was mildly hypotensive on the morning of 11/13 Patient was then agreeable to EGD. Anesthesia consultation and GI consultation appreciated EGD on 11/13 showed 2 no longer actively bleeding ulcers in the duodenum Give another 1 unit of PRBCs on 11/13 Hgb fairly stable at 8.9 today but also having bleeding from left hip now - no further GI bleeding Continue Protonix 40 mg IV twice daily today then convert to po PPI in the AM--> will need 2 to 3 months of p.o. Protonix twice daily -Continue to HOLD Lovenox from post-op hip--> Ortho notes say to stay on this for 2 weeks only anyway which is now at this point Follow CBC now for left hip bleeding and again in the AM (2) GI bleed: With melena as above upper GI bleed , with elevated BUN and normal creatinine noted that she was on Lovenox BID for DVT prophylaxis at [facility] which is now discontinued Now status post EGD on 11/13 which showed duodenal ulcers as above No longer actively bleeding Continue Protonix (3) Peptic ulcer disease: as above (4) Hypotension: Blood pressures were low upon arrival and now improved after PRBC transfusions mentating clearly, making urine Now s/p 4 units PRBC and NS bolus Continue holding home telmisartan (5) Periprosthetic fracture around internal prosthetic left hip joint: suffered fracture at the beginning of October, was admitted 10/25/20 transferred to [facility] on 10/25 and she said she had surgical correct ion of the fracture on 10/28 was at [facility] for rehab but she said she was not doing much there-is not allowed to bear weight but was doing bed to chair transfers with a Jj lift no pain in left hip at this time consult PT/OT today she is adamant about not going back to [facility], consult CM -I discussed her care with the orthopedic team at [facility] to remove emmanuel and place Steri-Strips on 11/13. She is to remain nonweightbearing on the left hip and has follow-up planned on 12/12 with orthopedic surgeon On 11/15 had continuous bleeding from distal portion of incision. WOund does not appear dehisched but bleeding from a small area between 2 previous staple sites. -consulted Ortho here to see if needs sutured does not appear ot have large hematoma apply pressure dressing -check CBC now (6) Hyperkalemia: K of 6.3 on admission and remains persistently elevated but improved today at 5.0 after multiple rounds of insulin and D50, IV Lasix, and calcium gluconate - no evidence of hemolysis reported on sample Cr is normal she was reportedly taking ARB which would be contributing and is now on hold no changes on tele monitor K+ finally normalized after starting standing bid IV lasix dosing on 11/13--> K+ 4.5 on 11/14 and remains stable Continue to follow BMP and treat accordingly if remains elevated -continue Lasix 20 mg IV twice daily especially she is also volume overloaded (7) Vomiting and diarrhea: was improved, now some nausea on 11/15 continue ZOfran prn diet as tolerated add sucralfate Diarrhea with C. diff as below (8) Chronic respiratory failure with hypoxia: stable on her 3L, no respiratory distress except a little more SOB today -diuresing check hgb (9) Type 2 diabetes mellitus, with long-term current use of insulin: Glucose controlled -continue to hold home Lantus, Trulicity, metformin Novolog SS q6 gave regular insulin 10 units with dextrose in the ED for K on multiple occasions -continue Lantus 5 units this AM has poor po intake (10) HTN (hypertension): hold anti-hypertensives with low BP and GI bleeding (11) Lab test positive for detection of COVID-19 virus: patient received vaccine back on 10/22 had diarrhea/vomiting after getting vaccine, caused her to pass out and fracture left hip she tested positive for COVID PCR on 10/25, only had GI symptoms, never had pneumonia. Test remains positive now but she is off precautions as it has been over 3 weeks no sick contacts, all of her family has tested negative according to her son Ankit (12) Pressure ulcer: * Pressure ulcer of left medial dorsal foot, POA, unstageable * Pressure ulcer of left medial buttocks POA, stage I * Pressure ulcer of left posterior heel(s) POA, unstageable Pressure ulcer of left lateral ankle, POA, unstageable Pressure ulcer of right lower posterior lateral back, POA, stage I Wound care following, follow wound care recommendations Offload pressure (13) Asymptomatic bacteriuria: UA is contaminated with epithelials Ur cx with GNR is asymptomatic, no treatment needed (14) Insomnia: melatonin 6mg not helping -add on benadryl prn for tonight at her request (15) C. difficile diarrhea: tested positive on 11/14 started po Vanco 125mg qid x 10 day course-lst day of tx will be 11/24 (16) DVT prophylaxis: SCDs only Disposition-continued stay in PCU DNR/DNI Appreciate palliative care consultation for goals of care discussion Admission and Anticipated Discharge Date Admission Date: November 11, 2020 Subjective Pt feels more SOB today and had some nausea earlier which is now improved. Had one smear of a BM today but no larger BM. Her left hip incision has been bleeding as per RN and this was confirmed by me. She did get to the sit on the side of the bed today for the first time in weeks and was happy about this. She tested positive for C. diff last evening and was started on po Vanco Tele with sinus rhythm w/ 1st degree AVB rate in 90s I discussed her case with [place] HUNTER Review of Systems Review of Systems: All systems reviewed & are unremarkable except as noted in HPI & below Physical Exam Constitutional: WD/WN, vitals as above + obese Eyes: + anicteric sclerae Neck: trachea midline, no thyromegaly Respiratory: normal respiratory effort, lungs clear to auscultation Cardiovascular: Rate/Rhythm: regular rate and regular rhythm Heart Sounds: no murmur Extremities: + edema (1+ pitting edema left lower extremity, trace pitting edema of the RLE) Chest (Breasts): Chest: normal inspection of chest Gastrointestinal (Abdomen): normal bowel sounds, soft, nontender, no hepatosplenomegaly Musculoskeletal: Extremities: + extremities abnormal to inspection (Left hip with edema,prox incision intact,distal incision bleeding dark red ), no cyanosis and no clubbing Skin: +edema left hip, swelling, mild erythema Neurologic: moves all extremities and awake; no focal motor deficits Psychiatric: Orientation: alert and oriented x 3 Speech: normal rate/rh ythm/volume of speech Thought Process: goal directed thought process Genitourinary: + abnormal external appearance (Olivares catheter in place) Results & Data Results & Data ([facility]) Vital Signs (Past 12 Hours) Vital Signs Temp Pulse Pulse Resp BP Pulse Ox Pulse Ox 11/15/20 11:16 36.6 C 91 H 18 113/44 L 98 11/15/20 10:53 95 11/15/20 07:52 96 H 11/15/20 07:09 37.1 C 97 H 20 131/52 L 96 11/15/20 03:47 36.6 C 100 H 20 117/41 L 95 Laboratory Results 11/15/20 11/15/20 11/15/20 Range/Units 11:12 07:11 05:26 WBC (4.8-10.8) K/uL RBC (4.2-5.4) M/uL Hgb (12.0-16.0) g/dL Hct (37-47) % MCV (80-100) fL MCH (25-34) pg MCHC (32-36) g/dL RDW Std Deviation (36.4-46.3) fL RDW Coeff of Yevgeniy (11.5-14.5) % Plt Count (130-400) K/uL MPV (7.4-10.4) fL Immature Gran % (Auto) % Neut % (Auto) % Lymph % (Auto) % [place] % (Auto) % Eos % (Auto) % Baso % (Auto) % Neut # (Auto) (1.4-6.5) K/uL Lymph # (Auto) (1.2-3.4) K/uL [place] # (Auto) (0.11-0.59) K/uL Eos # (Auto) (0-0.5) K/uL Baso # (Auto) (0-0.2) K/uL Immature Gran # (Auto) (0.00-0.02) K/uL Sodium 139 (136-145) mmol/L Potassium 4.5 (3.5-5.1) mmol/L Chloride 106 (98-107) mmol/L Carbon Dioxide 30 (21-32) mmol/L Anion Gap 3.0 (3-11) BUN 33 H (7-18) mg/dl Creatinine 0.82 (0.6-1.2) mg/dl Est Cr Clr Drug Dosing 70.5 ml/min Est GFR ( Amer) 80.0 Est GFR (Non-Af Amer) 69.0 BUN/Creatinine Ratio 40.7 H (10-20) Glucose 162 H (70-99) mg/dl POC Glucose 169 H 191 H (70-99) mg/dl Calcium 7.8 L (8.5-10.1) mg/dl Stl C.difficile Tox A&B (Negative) 11/15/20 11/14/20 11/14/20 Range/Units 05:26 20:51 16:07 WBC 8.99 (4.8-10.8) K/uL RBC 2.89 L (4.2-5.4) M/uL Hgb 8.9 L (12.0-16.0) g/dL Hct 27.6 L (37-47) % MCV 95.5 (80-100) fL MCH 30.8 (25-34) pg MCHC 32.2 (32-36) g/dL RDW Std Deviation 53.2 H (36.4-46.3) fL RDW Coeff of Yevgeniy 15.8 H (11.5-14.5) % Plt Count 351 (130-400) K/uL MPV 10.4 (7.4-10.4) fL Immature Gran % (Auto) 0.7 % Neut % (Auto) 81.3 % Lymph % (Auto) 7.2 % [place] % (Auto) 9.9 % Eos % (Auto) 0.8 % Baso % (Auto) 0.1 % Neut # (Auto) 7.31 H (1.4-6.5) K/uL Lymph # (Auto) 0.65 L (1.2-3.4) K/uL [place] # (Auto) 0.89 H (0.11-0.59) K/uL Eos # (Auto) 0.07 (0-0.5) K/uL Baso # (Auto) 0.01 (0-0.2) K/uL Immature Gran # (Auto) 0.06 H (0.00-0.02) K/uL Sodium (136-145) mmol/L Potassium (3.5-5.1) mmol/L Chloride (98-107) mmol/L Carbon Dioxide (21-32) mmol/L Anion Gap (3-11) BUN (7-18) mg/dl Creatinine (0.6-1.2) mg/dl Est Cr Clr Drug Dosing ml/min Est GFR ( Amer) Est GFR (Non-Af Amer) BUN/Creatinine Ratio (10-20) Glucose (70-99) mg/dl POC Glucose 149 H 134 H (70-99) mg/dl Calcium (8.5-10.1) mg/dl Stl C.difficile Tox A&B (Negative) 11/14/20 Range/Units 10:50 WBC (4.8-10.8) K/uL RBC (4.2-5.4) M/uL Hgb (12.0-16.0) g/dL Hct (37-47) % MCV (80-100) fL MCH (25-34) pg MCHC (32-36) g/dL RDW Std Deviation (36.4-46.3) fL RDW Coeff of Yevgeniy (11.5-14.5) % Plt Count (130-400) K/uL MPV (7.4-10.4) fL Immature Gran % (Auto) % Neut % (Auto) % Lymph % (Auto) % [place] % (Auto) % Eos % (Auto) % Baso % (Auto) % Neut # (Auto) (1.4-6.5) K/uL Lymph # (Auto) (1.2-3.4) K/uL [place] # (Auto) (0.11-0.59) K/uL Eos # (Auto) (0-0.5) K/uL Baso # (Auto) (0-0.2) K/uL Immature Gran # (Auto) (0.00-0.02) K/uL Sodium (136-145) mmol/L Potassium (3.5-5.1) mmol/L Chloride (98-107) mmol/L Carbon Dioxide (21-32) mmol/L Anion Gap (3-11) BUN (7-18) mg/dl Creatinine (0.6-1.2) mg/dl Est Cr Clr Drug Dosing ml/min Est GFR ( Amer) Est GFR (Non-Af Amer) BUN/Creatinine Ratio (10-20) Glucose (70-99) mg/dl POC Glucose (70-99) mg/dl Calcium (8.5-10.1) mg/dl Stl C.difficile Tox A&B Positive Cdiff Toxin A* (Negative) PG Care Time/CCT Total # of Minutes Spent Total Time Spent with Patient: Total time spent is greater than 50% in coordination of care (as documented) at patient's floor/unit and/or counseling patient: Coding Level of Care Code 64082 Subseq Hosp Care Lvl 3 Diagnoses Acute blood loss anemia D62 GI bleed K92.2 Peptic ulcer disease K27.9 Hypotension I95.9 Periprosthetic fracture around internal prosthetic left hip joint M97.02XA Encounter type: initial encounter Hyperkalemia E87.5 Vomiting and diarrhea R11.10; R19.7 Chronic respiratory failure with hypoxia J96.11 Type 2 diabetes mellitus, with long-term current use of insulin E11.9; Z79.4 HTN (hypertension) I10 Lab test positive for detection of COVID-19 virus U07.1 Pressure ulcer L89.90 Asymptomatic bacteriuria R82.71 Insomnia G47.00 C. difficile diarrhea A04.72 DVT prophylaxis Z29.9 (1) Periprosthetic fracture around internal prosthetic left hip joint Encounter type: initial encounter Qualified Code(s): M97.02XA - Periprosthetic fracture around internal prosthetic left hip joint, initial encounter
[2020-11-15] MEDS ORDERED: NYSTATIN POWDER 15GM BTL EXT PRN (14:38)
--- NOTE | 2020-11-15 15:10 | Orthopedic Consultation ---
Date of Consultation November 15, 2020 Assessment & Plan (1) Bleeding from wound: I have spoken to about this patient. Plans will be to get x- rays of her left femur to make sure all the hardware is intact. Plans will be then to cleanse the wound and put some Steri-Strips across the section of bleeding to see if this will help stem the flow. We will place another compression dressing over it at that time. Consider a short dose of oral antibiotics with the small portion of wound that has obviously reopened. We will continue to follow the patient to see how the wound progresses. History of Present Illness Reason for Consultation: Surgical wound bleeding Attending Physician: Christie Flores MD History of Present Illness Patient is a 75-year-old white female who was admitted earlier in the week for GI bleed. Patient came in with a hemoglobin of 4. She has a history of having a periprosthetic femur fracture earlier in the month of which she was then transferred down to [facility] service and treated there. She was eventually then brought back to [facility] where she was convalescing. She returned to the hospital this week with the above-noted problem. During that time, hospital service had been in contact with [facility] surgery service concerning her emmanuel of her left lower extremity wound. They were given the okay to remove the emmanuel but hold off on Steri-Strips secondary to previous blistering on the skin. At [facility] the patient was being lifted out of bed with a Jj lift. After the emmanuel were removed, she became a little bit more active and was helping the nursing staff get her to the bedside. It was noted then that she started having some bloody drainage from the distal end of the wound. This was investigated by Dr. Flores from the hospital service and she noted that the patient had a fairly good trickle of what appeared to be venous blood from this portion of the wound. She is asked us to see the patient's wound for recommendations. Allergies Allergy/AdvReac Type Severity Reaction Status Date / Time No Known Allergies Allergy Verified 11/11/20 07:25 Home Medications Medication Instructions Recorded Confirmed Type Dexcom G6 Dormitory Counselor #1 ea NS 07/29/19 07/23/20 Rx Dexcom G6 Sensor #3 ea NS 07/29/19 07/23/20 Rx Dexcom G6 Transmitter #1 ea NS 07/29/19 07/23/20 Rx blood sugar diagnostic #100 ea 11/24/19 07/23/20 Rx pen needle, diabetic 31 gauge x #500 box 11/24/19 07/23/20 Rx 5/16" syringe with needle 1 mL 27 x 1/2" #1 ea 01/04/20 07/23/20 Rx simvastatin 40 mg tablet 40 mg PO HS #90 tab 05/09/20 11/11/20 Rx Lantus Solostar U-100 Insulin 40 unit SUBCUT DAILY 11/11/20 11/11/20 History PNV cmb#95-ferrous fumarate-FA 1 tab PO DAILY 11/11/20 11/11/20 History [] acetaminophen [Tylenol] 975 mg PO Q8 11/11/20 11/11/20 History albuterol sulfate [Ventolin HFA] 1 puff INHALATION Q4H PRN 11/11/20 11/11/20 History ascorbic acid (vitamin C) 500 mg PO DAILY 11/11/20 11/11/20 History dulaglutide [Trulicity] 0.75 mg SUBCUT .DAILY EVERY 7 DAYS 11/11/20 11/11/20 History enoxaparin 60 mg SUBCUT Q12H 11/11/20 11/11/20 History menthol-zinc oxide [Calmoseptine] 1 applic TOPICAL QS 11/11/20 11/11/20 History mepolizumab [Nucala] 100 mg SUBCUT .EVERY 28 DAYS 11/11/20 11/11/20 History metformin 1,000 mg PO BID 11/11/20 11/11/20 History mometasone [Asmanex Twisthaler] 1 inh INHALATION AMHS 11/11/20 11/11/20 History nystatin 1 applic TOPICAL QS 11/11/20 11/11/20 History oxycodone 5 mg PO Q6 PRN 11/11/20 11/11/20 History oxycodone 10 mg PO Q6 PRN 11/11/20 11/11/20 History polyethylene glycol 3350 [Miralax] 17 g PO DAILY 11/11/20 11/11/20 History prednisolone sodium phosphate 1 drp OPL DAILY 11/11/20 11/11/20 History telmisartan 40 mg PO DAILY 11/11/20 11/11/20 History Patient History Medical History Asthma Carpal tunnel syndrome on right Diabetic peripheral neuropathy associated with type 2 diabetes mellitus Dyslipidemia Esophageal reflux First degree atrioventricular block HTN (hypertension) Hx of fracture of femur Iron deficiency anemia secondary to inadequate dietary iron intake Mediastinal adenopathy Multiple pulmonary nodules Obesity, morbid, BMI 40.0-49.9 Obstructive sleep apnea refuses CPAP Osteopenia Palliative care encounter Paroxysmal tachycardia Peptic ulcer disease Respiratory failure Restless leg syndrome Selective deficiency of IgG Syncope Type 2 diabetes mellitus, with long-term current use of insulin Vitamin D deficiency Surgical History H/O total hip arthroplasty left H/O: hysterectomy History of bronchoscopy (~11/2017) by Dr. Churchill followed by a mediastinoscopy and biopsy in December 2017 History of tonsillectomy and adenoidectomy Hx of cataract extraction bilateral. 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 Hx of cholecystectomy Hx of colonoscopy (~2015) Hx of eye surgery left Hx of total knee arthroplasty bilateral S/P appy Family History Father Cardiovascular disease Diabetes Asthma Brother Diabetes Cardiac disorder Mother Breast cancer Other Family history non-contributory Social History Smoking Status: Never smoker Second Hand Exposure: No; Hx Alcohol Use: No Hx Substance Use: No Preferred Language: Urdu Communication Ability: Effective Correspondence Coordinator Required: No Beliefs That Will Affect Care: None marital status: Current Living Situation: Group Home and Rehab Current Living Situation Comment: Rehab at [facility] current occupational status: retired Feels Safe at Home: Yes Assistive Devices: Glasses and Oxygen - Continuous Physical Exam Physical Exam: The nursing staff is able to help me roll the patient up onto her right side to view the whole surgical wound on her left lower extremity. There is an Optifoam dressing noted on the distal portion of the incision that was draining. This has a fair amount of dark blood noted on it. I removed the Optifoam dressing. There is a small portion of wound that is approximately a centimeter or less that is the area where there is a steady trickle of dark blood. On applying pressure to the thigh posteriorly and anteriorly, this does not appear to accentuate the bleeding at all. There is no erythema noted and no purulent drainage. The rest of the wound appears benign. At the time, Adaptic, 4 x 4's and several ABD dressings were applied to the wound and compression tape was placed over this. Once the patient was brought back onto her back, a bedspread was rolled up and placed for compression against the thigh and the wound that was bolstered by a pillow and the rail of the bed. The patient tolerated this well. She had no complaints of pain during moving her left lower extremity. Results & Data ([facility]) Vital Signs (Past 12 Hours) Vital Signs Temp Pulse Pulse Resp BP Pulse Ox Pulse Ox 11/15/20 11:16 36.6 C 91 H 18 113/44 L 98 11/15/20 10:53 95 11/15/20 07:52 96 H 11/15/20 07:09 37.1 C 97 H 20 131/52 L 96 11/15/20 03:47 36.6 C 100 H 20 117/41 L 95
[2020-11-15] MEDS: SUCRALFATE 1 GM/10 ML UDC PO SCH ×3 (16:34→21:15)
[2020-11-15 16:37] LABS: Hematocrit (blood only) 27.7 % (37-47); Hemoglobin 8.9 g/dL (12.0-16.0); Mean Corpuscular Hemoglobin 30.2 pg (25-34); Mean Corpuscular Hgb Conc 32.1 g/dL (32-36); Mean Corpuscular Volume 93.9 fL (80-100); Mean Platelet Volume 10.3 fL (7.4-10.4); Platelet Count 342 K/uL (130-400); RDW Coefficient of Variation 15.7 % (11.5-14.5); RDW Standard Deviation 53.4 fL (36.4-46.3); Red Blood Count 2.95 M/uL (4.2-5.4); White Blood Count 9.54 K/uL (4.8-10.8)
[2020-11-15 16:38] LABS: Platelet Estimate Normal (Normal)
--- NOTE | 2020-11-15 17:24 | XRay Report ---
XR femur LT 2V routine HISTORY: 75 years-old Female post surgery acute fracture left femur COMPARISON: Left femur radiographs 10/24/2020 TECHNIQUE: 2 views of the left femur FINDINGS: Left hip total joint arthroplasty. Status post placement of 4 cerclage wires fixating the acute perip rosthetic fracture of the subtrochanteric proximal femur. There is improved near anatomic alignment. Lateral plate and screw fusion of the distal femur appears intact. Left knee total joint arthroplasty . There are no expected opaque foreign bodies. IMPRESSION: Satisfactory alignment of the acute periprosthetic fracture of the proximal left femur st atus post placement of cerclage wires. ACT 112: Negative or not required by law. The above report was generated using voice recognition software. It may contain grammatical, syntax o r spelling errors. Electronically signed by: Elliott Mckay M.D. 11/15/2020 5:23 PM
[2020-11-15] MEDS: cephALEXin 500 MG CAP PO SCH ×2 (17:42→20:52)
[2020-11-15] MEDS: MELATONIN 3 MG TAB PO SCH (20:52)
[2020-11-16] MEDS: VANCOMYCIN HCL 125 MG/2.5ML SOLN PO SCH ×3 (06:05→17:07)
[2020-11-16] MEDS: RASPBERRY SYRUP 5 ML UDP PO SCH ×3 (06:05→17:07)
[2020-11-16 06:49] LABS: Basophils # (auto) 0.02 K/uL (0-0.2); Basophils % (auto) 0.2 %; Eosinophils # (auto) 0.04 K/uL (0-0.5); Eosinophils % (auto) 0.4 %; Hematocrit (blood only) 28.4 % (37-47); Immature Granulocytes # (auto) 0.02 K/uL (0.00-0.02); Immature Granulocytes % (auto) 0.2 %; Lymphocytes # (auto) 0.56 K/uL (1.2-3.4); Lymphocytes % (auto) 5.9 %; Mean Corpuscular Hemoglobin 30.3 pg (25-34); Mean Corpuscular Hgb Conc 31.7 g/dL (32-36); Mean Corpuscular Volume 95.6 fL (80-100); Mean Platelet Volume 9.9 fL (7.4-10.4); Monocytes # (auto) 0.92 K/uL (0.11-0.59); Monocytes % (auto) 9.7 %; Neutrophils # (auto) 7.88 K/uL (1.4-6.5); Neutrophils % (auto) 83.6 %; Platelet Count 302 K/uL (130-400); RDW Coefficient of Variation 15.5 % (11.5-14.5); RDW Standard Deviation 52.7 fL (36.4-46.3); Red Blood Count 2.97 M/uL (4.2-5.4); White Blood Count 9.44 K/uL (4.8-10.8)
[2020-11-16 07:29] LABS: Calcium 7.7 mg/dl (8.5-10.1); Creatinine Clr Calc Pharmacy 74.3 ml/min; Est GFR (African American) 83.7; Est GFR (Non-African American) 72.2; Potassium 4.6 mmol/L (3.5-5.1)
[2020-11-16] MEDS: FLUTICASONE FUROATE 100MCG 14 PUFFS/INHALER INH SCH (07:44)
[2020-11-16] MEDS: NYSTATIN CR 15 GM TUBE EXT SCH ×2 (07:46→16:59)
[2020-11-16] MEDS: SUCRALFATE 1 GM/10 ML UDC PO SCH (07:46)
[2020-11-16] MEDS: prednisoLONE sod phos 1% 10 ML BTL OPL SCH (07:47)
[2020-11-16] MEDS: cephALEXin 500 MG CAP PO SCH ×4 (07:47→20:14)
[2020-11-16] MEDS: FUROSEMIDE 20 MG in SYRINGE 0 ML IV SCH ×2 (07:47→17:08)
[2020-11-16] MEDS: PANTOprazole 40 MG TAB PO SCH ×2 (07:47→20:18)
[2020-11-16] MEDS: INSULIN GLARGINE SOLOSTAR 100 UNITS/ML 3 ML PEN SC SCH (07:48)
[2020-11-16] MEDS: INSULIN ASPART 100 UNITS/ML 3 ML PEN SC SCH ×4 (07:49→21:04)
--- NOTE | 2020-11-16 11:56 | Hospitalist Progress Note ---
Date of Service November 16, 2020 Assessment & Plan (1) Acute blood loss anemia: Presented with Hb of 4.4 and low normal blood pressure after having melena, one BP reading in 70's systolic upon arrival last known hemoglobin at the beginning of the month was 10.5 when she was admitted for periprosthetic hip fracture on the left and then was around 7.5 when she was discharged from [facility] on 11/04 patient with several days of diarrhea, and then noted to have melena by staff at [facility] te day of admission some intermittent abdominal pain, vomited once but not coffee ground emesis--> now resolved Initially given 3 units PRBCs, hemoglobin was stable at 8.5, coags normal. GI and anesthesia canceled the EGD on Thursday for possible comorbidities, but patient not agreeable to transfer to tertiary care Patient continued to have burgundy colored stools and hemoglobin dropped to 7.5 and was mildly hypotensive on the morning of 11/13 Patient was then agreeable to EGD after Palliative discussion with her and family. Anesthesia consultation and GI consultation appreciated EGD on 11/13 showed 2 no longer actively bleeding ulcers in the duodenum Give another 1 unit of PRBCs on 11/13 Hgb remains stable since then at 9, but also having bleeding from left hip now - no further GI bleeding Received IV Protonix x 4 days then converted to po PPI bid--> will need 2 to 3 months -Continue to HOLD Lovenox from post-op hip--> Ortho notes say to stay on this for 2 weeks only anyway which is now at this point Follow CBC for left hip bleeding (2) GI bleed: With melena as above upper GI bleed , with elevated BUN and normal creatinine noted that she was on Lovenox BID for DVT prophylaxis at [facility] which is now discontinued Now status post EGD on 11/13 which showed duodenal ulcers as above No longer actively bleeding Continue Protonix -adv diet as janice--> she wishes to remain on full liquids for now (3) Peptic ulcer disease: as above (4) Hypotension: Blood pressures were low upon arrival and now improved after PRBC transfusions mentating clearly, making urine Now s/p 4 units PRBC and NS bolus Continue holding home telmisartan (5) Periprosthetic fracture around internal prosthetic left hip joint: suffered fracture at the beginning of October, was admitted 10/25/20 transferred to [facility] on 10/25 and she said she had surgical correction of the fracture on 10/28 was at [facility] for rehab but she said she was not doing much there-is not allowed to bear weight but was doing bed to chair transfers with a Jj lift no pain in left hip at this time consult PT/OT appreciated she is adamant about not going back to [facility], consult CM -I discussed her care with the orthopedic team at [facility] to remove emmanuel and place Steri-Strips on 11/13. She is to remain nonweightbearing on the left hip and has follow-up planned on 12/12 with orthopedic surgeon On 11/15 had continuous bleeding from distal portion of incision. WOund does not appear dehisched but bleeding from a small area between 2 previous staple sites. -consulted Ortho here to see if needs sutured--> for now applied pressure dressing and started po prophylactic abx with keflex does not appear to have large hematoma 11/16, bleeding again fairly heavily apply pressure dressing again -Ortho to [id number] need suture? -continue Olivares for now to prevent excessive manipulation and keep wound dry (6) Hyperkalemia: K of 6.3 on admission and remained persistently elevated x 2 days after multiple rounds of insulin and D50, IV Lasix, and calcium gluconate - no evidence of hemolysis reported on sample Cr is normal she was reportedly taking ARB which would be contributing and is now on hold no changes on tele monitor K+ finally normalized after starting standing bid IV lasix dosing on 11/13--> K+ 4.6 and remains stable Continue to follow BMP and treat accordingly if remains elevated -continue Lasix 20 mg IV twice daily especially she is also volume overloaded (7) Vomiting and diarrhea: was improved, now some nausea on 11/15 which is now improving continue ZOfran prn diet as tolerated added sucralfate but she did not like the taste and aspirated on it--> discontinued Diarrhea with C. diff as below which is now much improved (8) Chronic respiratory failure with hypoxia: stable on her 3L, no respiratory distress -diuresing hgb stable (9) Type 2 diabetes mellitus, with long-term current use of insulin: Glucose controlled -continue to hold home Lantus, Trulicity, metformin Novolog SS q6 gave regular insulin 10 units with dextrose in the ED for K on multiple occasions -continue Lantus 5 units q AM has poor po intake but will increase as needed (10) HTN (hypertension): hold anti-hypertensives with low BP and GI bleeding (11) Lab test positive for detection of COVID-19 virus: patient received vaccine back on 10/22 had diarrhea/vomiting after getting vaccine, caused her to pass out and fracture left hip she tested positive for COVID PCR on 10/25, only had GI symptoms, never had pneumonia. Test remains positive now but she is off precautions as it has been over 3 weeks no sick contacts, all of her family has tested negative according to her son Ankit (12) Pressure ulcer: * Pressure ulcer of left medial dorsal foot, POA, unstageable * Pressure ulcer of left medial buttocks POA, stage I * Pressure ulcer of left posterior heel(s) POA, unstageable Pressure ulcer of left lateral ankle, POA, unstageable Pressure ulcer of right lower posterior lateral back, POA, stage I Wound care following, follow wound care recommendations Offload pressure (13) Asymptomatic bacteriuria: UA is contaminated with epithelials Ur cx with GNR is asymptomatic, no treatment needed although is on keflex now anyway for wound (14) Insomnia: melatonin 6mg not helping - benadryl prn for sleep (15) C. difficile diarrhea: tested positive on 11/14 started po Vanco 125mg qid x 10 day course-lst day of tx will be / no further diarrhea now (16) DVT prophylaxis: SCDs only due to bleeding Disposition-continued stay in PCU, eventually has been accepted at [facility] DNR/DNI Appreciate palliative care consultation for goals of care discussion Admission and Anticipated Discharge Date Admission Date: November 11, 2020 Subjective Pt feels less nauseated today but only wants to stay on full liquids. No abd pains. Had an episode where she aspirated carafate last night that really scared her and she coughed for a while; said the carafate tasted disgusting, doesn't want to take it anymore. Denies chest pain. Also had sweats overnight. Her hip wound also started bleeding again this AM as per RN and saturated the bed pad. Pressure dressing was reapplied and now dressing c/d/i. I discussed her care with Ortho PA. Tele with SR,rates 90s, 1st degree AVB Review of Systems Review of Systems: All systems reviewed & are unremarkable except as noted in HPI & below Physical Exam Constitutional: WD/WN, vitals as above + obese Eyes: + anicteric sclerae Neck: trachea midline, no thyromegaly Respiratory: normal respiratory effort, lungs clear to auscultation Cardiovascular: Rate/Rhythm: regular rate and regular rhythm Heart Sounds: no murmur Extremities: + edema (1+ pitting edema left lower extremity, trace pitting edema of the RLE) Chest (Breasts): Chest: normal inspection of chest Gastrointestinal (Abdomen): normal bowel sounds, soft, nontender, no hepatosplenomegaly Musculoskeletal: Extremities: + extremities abnormal to inspection (Left hip with edema,prox incision intact,distal incision with dressing cdi), no cyanosis and no clubbing Skin: no rashes, warm and dry + erythema (mild surrounding prox wound) Neurologic: moves all extremities and awake; no focal motor deficits Psychiatric: Orientation: alert and oriented x 3 Speech: normal rate/rhythm/volume of speech Thought Process: goal directed thought process Genitourinary: + abnormal external appearance (Olivares catheter in place) Results & Data Results & Data ([facility]) Vital Signs (Past 12 Hours) Vital Signs Temp Pulse Resp BP Pulse Ox 11/16/20 11:21 37.3 C 91 H 16 121/52 L 100 11/16/20 07:21 36.7 C 98 H 16 127/51 L 98 11/16/20 03:40 37.3 C 105 H 20 112/46 L 96 Laboratory Results 11/16/20 11/16/20 11/16/20 Range/Units 11:23 07:19 06:32 WBC RBC Hgb Hct MCV MCH MCHC RDW Std Deviation RDW Coeff of Yevgeniy Plt Count MPV Immature Gran % (Auto) % Neut % (Auto) % Lymph % (Auto) % [place] % (Auto) % Eos % (Auto) % Baso % (Auto) % Neut # (Auto) (1.4-6.5) K/uL Lymph # (Auto) (1.2-3.4) K/uL [place] # (Auto) (0.11-0.59) K/uL Eos # (Auto) (0-0.5) K/uL Baso # (Auto) (0-0.2) K/uL Immature Gran # (Auto) (0.00-0.02) K/uL Absolute Nucleated RBC Nucleated RBC % (auto) Platelet Estimate Sodium 137 (136-145) mmol/L Potassium 4.6 (3.5-5.1) mmol/L Chloride 103 (98-107) mmol/L Carbon Dioxide 30 (21-32) mmol/L Anion Gap 4.0 (3-11) BUN 30 H (7-18) mg/dl Creatinine 0.79 (0.6-1.2) mg/dl Est Cr Clr Drug Dosing 74.3 ml/min Est GFR ( Amer) 83.7 Est GFR (Non-Af Amer) 72.2 BUN/Creatinine Ratio 38.0 H (10-20) Glucose 171 H (70-99) mg/dl POC Glucose 153 H 179 H (70-99) mg/dl Calcium 7.7 L (8.5-10.1) mg/dl 11/16/20 11/15/20 11/15/20 Range/Units 06:32 20:48 19:23 WBC 9.44 RBC 2.97 L Hgb 9.0 L Hct 28.4 L MCV 95.6 MCH 30.3 MCHC 31.7 L RDW Std Deviation 52.7 H RDW Coeff of Yevgeniy 15.5 H Plt Count 302 MPV 9.9 Immature Gran % (Auto) 0.2 % Neut % (Auto) 83.6 % Lymph % (Auto) 5.9 % [place] % (Auto) 9.7 % Eos % (Auto) 0.4 % Baso % (Auto) 0.2 % Neut # (Auto) 7.88 H (1.4-6.5) K/uL Lymph # (Auto) 0.56 L (1.2-3.4) K/uL [place] # (Auto) 0.92 H (0.11-0.59) K/uL Eos # (Auto) 0.04 (0-0.5) K/uL Baso # (Auto) 0.02 (0-0.2) K/uL Immature Gran # (Auto) 0.02 (0.00-0.02) K/uL Absolute Nucleated RBC Nucleated RBC % (auto) Platelet Estimate Sodium (136-145) mmol/L Potassium (3.5-5.1) mmol/L Chloride (98-107) mmol/L Carbon Dioxide (21-32) mmol/L Anion Gap (3-11) BUN (7-18) mg/dl Creatinine (0.6-1.2) mg/dl Est Cr Clr Drug Dosing ml/min Est GFR ( Amer) Est GFR (Non-Af Amer) BUN/Creatinine Ratio (10-20) Glucose (70-99) mg/dl POC Glucose 160 H 178 H (70-99) mg/dl Calcium (8.5-10.1) mg/dl 11/15/20 11/15/20 11/15/20 Range/Units 16:25 15:39 14:35 WBC 9.54 Cancelled RBC 2.95 L Cancelled Hgb 8.9 L Cancelled Hct 27.7 L Cancelled MCV 93.9 Cancelled MCH 30.2 Cancelled MCHC 32.1 Cancelled RDW Std Deviation 53.4 H Cancelled RDW Coeff of Yevgeniy 15.7 H Cancelled Plt Count 342 Cancelled MPV 10.3 Cancelled Immature Gran % (Auto) % Neut % (Auto) % Lymph % (Auto) % [place] % (Auto) % Eos % (Auto) % Baso % (Auto) % Neut # (Auto) (1.4-6.5) K/uL Lymph # (Auto) (1.2-3.4) K/uL [place] # (Auto) (0.11-0.59) K/uL Eos # (Auto) (0-0.5) K/uL Baso # (Auto) (0-0.2) K/uL Immature Gran # (Auto) (0.00-0.02) K/uL Absolute Nucleated RBC Cancelled Nucleated RBC % (auto) Cancelled Platelet Estimate Normal Cancelled Sodium (136-145) mmol/L Potassium (3.5-5.1) mmol/L Chloride (98-107) mmol/L Carbon Dioxide (21-32) mmol/L Anion Gap (3-11) BUN (7-18) mg/dl Creatinine (0.6-1.2) mg/dl Est Cr Clr Drug Dosing ml/min Est GFR ( Amer) Est GFR (Non-Af Amer) BUN/Creatinine Ratio (10-20) Glucose (70-99) mg/dl POC Glucose 175 H (70-99) mg/dl Calcium (8.5-10.1) mg/dl PG Care Time/CCT Total # of Minutes Spent Total Time Spent with Patient: Total time spent is greater than 50% in coord ination of care (as documented) at patient's floor/unit and/or counseling patient: Coding Level of Care Code 73129 Subseq Hosp Care Lvl 3 Diagnoses Acute blood loss anemia D62 GI bleed K92.2 Peptic ulcer disease K27.9 Hypotension I95.9 Periprosthetic fracture around internal prosthetic left hip joint M97.02XA Encounter type: initial encounter Hyperkalemia E87.5 Vomiting and diarrhea R11.10; R19.7 Chronic respiratory failure with hypoxia J96.11 Type 2 diabetes mellitus, with long-term current use of insulin E11.9; Z79.4 HTN (hypertension) I10 Lab test positive for detection of COVID-19 virus U07.1 Pressure ulcer L89.90 Asymptomatic bacteriuria R82.71 Insomnia G47.00 C. difficile diarrhea A04.72 DVT prophylaxis Z29.9 (1) Periprosthetic fracture around internal prosthetic left hip joint Encounter type: initial encounter Qualified Code(s): M97.02XA - Periprosthetic fracture around internal prosthetic left hip joint, initial encounter
[2020-11-16 20:03] LABS: Hematocrit (blood only) 28.1 % (37-47); Hemoglobin 8.9 g/dL (12.0-16.0); Mean Corpuscular Hemoglobin 30.4 pg (25-34); Mean Corpuscular Hgb Conc 31.7 g/dL (32-36); Mean Corpuscular Volume 95.9 fL (80-100); Mean Platelet Volume 10.3 fL (7.4-10.4); Platelet Count 291 K/uL (130-400); RDW Coefficient of Variation 15.3 % (11.5-14.5); RDW Standard Deviation 53.2 fL (36.4-46.3); Red Blood Count 2.93 M/uL (4.2-5.4); White Blood Count 7.49 K/uL (4.8-10.8)
[2020-11-16] MEDS: MELATONIN 3 MG TAB PO SCH (20:14)
[2020-11-17] MEDS: NYSTATIN CR 15 GM TUBE EXT SCH ×4 (00:24→23:36)
[2020-11-17] MEDS: RASPBERRY SYRUP 5 ML UDP PO SCH ×5 (00:28→23:36)
[2020-11-17] MEDS: VANCOMYCIN HCL 125 MG/2.5ML SOLN PO SCH ×5 (00:28→23:38)
[2020-11-17] MEDS: FLUTICASONE FUROATE 100MCG 14 PUFFS/INHALER INH SCH (08:17)
[2020-11-17] MEDS: FUROSEMIDE 20 MG in SYRINGE 0 ML IV SCH (08:17)
[2020-11-17] MEDS: PANTOprazole 40 MG TAB PO SCH ×2 (08:17→21:06)
[2020-11-17] MEDS: cephALEXin 500 MG CAP PO SCH ×4 (08:18→21:05)
[2020-11-17] MEDS: INSULIN GLARGINE SOLOSTAR 100 UNITS/ML 3 ML PEN SC SCH (08:19)
[2020-11-17] MEDS: prednisoLONE sod phos 1% 10 ML BTL OPL SCH (08:19)
[2020-11-17] MEDS: INSULIN ASPART 100 UNITS/ML 3 ML PEN SC SCH ×4 (08:24→21:42)
[2020-11-17 08:45] LABS: Albumin Level 1.7 gm/dl (3.4-5.0); BUN Creatinine Ratio 47.2 (10-20); Calcium 8.1 mg/dl (8.5-10.1); Creatinine Clr Calc Pharmacy 75.2 ml/min; Est GFR (Non-African American) 73.3; Potassium 4.8 mmol/L (3.5-5.1)
[2020-11-17 08:48] LABS: Albumin Globulin Ratio 0.5 (0.9-2); Bilirubin,Total 0.9 mg/dl (0.2-1); Globulin 3.6 gm/dl (2.5-4.0); Total Protein 5.3 gm/dl (6.4-8.2)
[2020-11-17 09:00] LABS: Basophils # (auto) 0.02 K/uL (0-0.2); Basophils % (auto) 0.3 %; Eosinophils # (auto) 0.19 K/uL (0-0.5); Eosinophils % (auto) 2.8 %; Hematocrit (blood only) 30.2 % (37-47); Hemoglobin 9.4 g/dL (12.0-16.0); Immature Granulocytes # (auto) 0.02 K/uL (0.00-0.02); Immature Granulocytes % (auto) 0.3 %; Lymphocytes # (auto) 0.73 K/uL (1.2-3.4); Lymphocytes % (auto) 10.9 %; Mean Corpuscular Hemoglobin 30.1 pg (25-34); Mean Corpuscular Volume 96.8 fL (80-100); Mean Platelet Volume 10.2 fL (7.4-10.4); Monocytes # (auto) 0.68 K/uL (0.11-0.59); Monocytes % (auto) 10.1 %; Neutrophils # (auto) 5.06 K/uL (1.4-6.5); Neutrophils % (auto) 75.6 %; Platelet Count 285 K/uL (130-400); RDW Coefficient of Variation 15.3 % (11.5-14.5); Red Blood Count 3.12 M/uL (4.2-5.4)
--- NOTE | 2020-11-17 09:31 | Orthopedic Progress Note ---
Date of Service November 17, 2020 Assessment & Plan (1) Bleeding from wound: I saw the patient this AM at the bedside. The drainage from her incision appears to be primarily a bleeding problem, rather than wound dehiscence. I recommend holding all 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. Perhaps she would benefit from further evaluation for coagulopathy? Will consult wound care as well for a more effective pressure dressing. Patient was seen this am with Dr. Panda present and evaluating the incision. At this time, recommend continue with Compression dressing and allow for drainage. Does not recommend suturing at this time. Continue to hold Lovenox if okay with medicine services and continue to monitor H/H. Admission and Anticipated Discharge Date Admission Date: November 11, 2020 Subjective Patient resting comfortably in bed. No new complaints today. Physical Exam Physical Exam: left hip incision about 1 cm open portion draining dark blood at distal incision. No signs erythema or infection. Area is soft. Toes mobile. NVI. Results & Data ([facility]) Vital Signs (Past 12 Hours) Vital Signs Temp Pulse Resp BP BP Pulse Ox 11/17/20 08:14 36.7 C 92 H 18 130/47 L 99 11/17/20 03:31 37.1 C 91 H 19 106/52 L 99 11/16/20 23:23 37.2 C 90 19 127/71 99
[2020-11-17 09:40] LABS: Mean Corpuscular Hgb Conc 31.1 g/dL (32-36)
--- NOTE | 2020-11-17 10:51 | Hospitalist Progress Note ---
Date of Service November 17, 2020 Assessment & Plan (1) Acute blood loss anemia: Presented with Hb of 4.4 and low normal blood pressure after having melena, one BP reading in 70's systolic upon arrival last known hemoglobin at the beginning of the month was 10.5 when she was admitted for periprosthetic hip fracture on the left and then was around 7.5 when she was discharged from [facility] on 11/04 patient with several days of diarrhea, and then noted to have melena by staff at [facility] the day of admission some intermittent abdominal pain, vomited once but not coffee ground emesis--> now resolved Initially given 3 units PRBCs, hemoglobin was stable at 8.5, coags normal. GI and anesthesia canceled the EGD on Thursday for possible comorbidities, but patient not agreeable to transfer to tertiary care Patient continued to have burgundy colored stools and hemoglobin dropped to 7.5 and was mildly hypotensive on the morning of 11/13 Patient was then agreeable to EGD after Palliative discussion with her and family. Anesthesia consultation and GI consultation appreciated EGD on 11/13 showed 2 no longer actively bleeding ulcers in the duodenum Give another 1 unit of PRBCs on 11/13 Hgb remains stable since then at 9, despite having bleeding from left hip now - no further GI bleeding or diarrhea Received IV Protonix x 4 days then converted to po PPI bid--> will need 2 to 3 months -Continue to HOLD Lovenox from post-op hip--> Ortho notes say to stay on this for 2 weeks only anyway which is now at this point Follow CBC for left hip bleeding (2) GI bleed: With melena as above upper GI bleed , with elevated BUN and normal creatinine noted that she was on Lovenox BID for DVT prophylaxis at [facility] which is now discontinued Now status post EGD on 11/13 which showed duodenal ulcers as above No longer actively bleeding Continue Protonix -now tolerating soft diet (3) Peptic ulcer disease: as above (4) Hypotension: Blood pressures were low upon arrival and now improved after PRBC transfusions mentating clearly, making urine Now s/p 4 units PRBC and NS bolus Continue holding home telmisartan (5) Periprosthetic fracture around internal prosthetic left hip joint: suffered fracture at the beginning of October, was admitted 10/25/20 transferred to [facility] on 10/25 and she said she had surgical correction of the fracture on 10/[address] [facility] for rehab but she said she was not doing much there-is not allowed to bear weight but was doing bed to chair transfers with a Jj lift no pain in left hip at this time consult PT/OT appreciated she is adamant about not going back to [facility], consult CM -I discussed her care with the orthopedic team at [facility] to remove emmanuel and place Steri-Strips on 11/13. She is to remain nonweightbearing on the left hip and has follow-up planned on 12/12 with orthopedic surgeon On 11/15 had continuous bleeding from distal portion of incision. WOund does not appear dehisced but bleeding from a small area between 2 previous staple sites. -consulted Ortho here to see if needs sutured--> for now applied pressure dressing and started po prophylactic abx with keflex does not appear to have large hematoma 11/17, bleeding persists but slowed down slightly with pressure dressings being changed out. Hgb stable Check coags again, no h/o previous bleeding issues, do not suspect VonWillebrands, renal function is normal, not on antiplatelets -continue pressure dressings, awaiting recs from wound care on Thursday, could trial a wound vac to see if helps collapse the vein that's bleeding -continue Olivares for now to prevent excessive manipulation and keep wound dry (6) Hyperkalemia: K of 6.3 on admission and remained persistently elevated x 2 days after multiple rounds of insulin and D50, IV Lasix, and calcium gluconate - no evidence of hemolysis reported on sample Cr is normal she was reportedly taking ARB which would be contributing and is now on hold no changes on tele monitor K+ finally normalized after starting standing bid IV lasix dosing on 11/13--> K+ 4.6 and remains stable Continue to follow BMP and treat accordingly if remains elevated -continue Lasix 20 mg but dc IV and convert to po 20mg daily as BUN rising (7) Vomiting and diarrhea: was improved, now some nausea on 11/15 which is now resolved continue ZOfran prn diet as tolerated added sucralfate but she did not like the taste and aspirated on it--> discontinued Diarrhea with C. diff as below which is now much improved (8) Chronic respiratory failure with hypoxia: stable on her 3L, no respiratory distress -diuresing hgb stable (9) Type 2 diabetes mellitus, with long-term current use of insulin: Glucose controlled -continue to hold home Trulicity, metformin Novolog SS q6 gave regular insulin 10 units with dextrose in the ED for K on multiple occasions -continue Lantus 5 units q AM has poor po intake but will increase as needed (10) HTN (hypertension): hold anti-hypertensives with low BP and GI bleeding (11) Lab test positive for detection of COVID-19 virus: patient received vaccine back on 10/22 had diarrhea/vomiting after getting vaccine, caused her to pass out and fracture left hip she tested positive for COVID PCR on 10/25, only had GI symptoms, never had pneumonia. Test remains positive now but she is off precautions as it has been over 3 weeks no sick contacts, all of her family has tested negative according to her son Ankit (12) Pressure ulcer: * Pressure ulcer of left medial dorsal foot, POA, unstageable * Pressure ulcer of left medial buttocks POA, stage I * Pressure ulcer of left posterior heel(s) POA, unstageable Pressure ulcer of left lateral ankle, POA, unstageable Pressure ulcer of right lower posterior lateral back, POA, stage I Wound care following, follow wound care recommendations Offload pressure (13) Asymptomatic bacteriuria: UA is contaminated with epithelials Ur cx with GNR is asymptomatic,only 8ooo CFUs no treatment needed although is on keflex now anyway for wound (14) Insomnia: melatonin 6mg not helping - benadryl prn for sleep (15) C. difficile diarrhea: tested positive on 11/14 started po Vanco 125mg qid x 10 day course-lst day of tx will be / no further diarrhea now (16) DVT prophylaxis: SCDs only due to bleeding Disposition-stable for downgrade to medical/surgical floor, eventually has been accepted at [facility] DNR/DNI Appreciate palliative care consultation for goals of care discussion Admission and Anticipated Discharge Date Admission Date: November 11, 2020 Subjective Pt feels better today but tired,not sleeping much. Still having bleeding from left hip wound but seems to have slowed down a little bit as per RN. CHanged dressing twice since yesterday. Denies pain. Reports nausea is improved and ate some solid foods this AM. Has a little SOB, no chest pain, no abd pain. No diarrhea as per RN. Discussed case with Ortho Tele with sinus rhythm, 1st degree AVB, rates 80-90s. Review of Systems Review of Systems: All systems reviewed & are unremarkable except as noted in HPI & below Physical Exam Constitutional: WD/WN, vitals as above + obese Eyes: + anicteric sclerae Neck: trachea midline, no thyromegaly Respiratory: normal respiratory effort, lungs clear to auscultation Cardiovascular: Rate/Rhythm: regular rate and regular rhythm Heart Sounds: no murmur Extremities: + edema (1+ pitting edema left lower extremity, trace pitting edema of the RLE) Chest (Breasts): Chest: normal inspection of chest Gastrointestinal (Abdomen): normal bowel sounds, soft, nontender, no hepatosplenomegaly Musculoskeletal: Extremities: + extremities abnormal to inspection (Left hip with edema,prox incision intact,distal inc w/ dressing blood soake), no cyanosis and no clubbing Skin: no rashes, warm and dry + erythema (mild surrounding prox wound improved) Neurologic: moves all extremities and awake; no focal motor deficits Psychiatric: Orientation: alert and oriented x 3 Speech: normal rate/rhythm/volume of speech Thought Process: goal directed thought process Genitourinary: + abnormal external appearance (Olivares catheter in place) Results & Data Results & Data ([facility]) Vital Signs (Past 12 Hours) Vital Signs Temp Pulse Resp BP BP Pulse Ox 11/17/20 08:14 36.7 C 92 H 18 130/47 L 99 11/17/20 03:31 37.1 C 91 H 19 106/52 L 99 11/16/20 23:23 37.2 C 90 19 127/71 99 Laboratory Results 11/17/20 11/17/20 11/17/20 Range/Units 08:37 07:53 07:53 WBC 6.70 Cancelled (4.8-10.8) K/uL RBC 3.12 L Cancelled (4.2-5.4) M/uL Hgb 9.4 L Cancelled (12.0-16.0) g/dL Hct 30.2 L Cancelled (37-47) % MCV 96.8 Cancelled (80-100) fL MCH 30.1 Cancelled (25-34) pg MCHC 31.1 L Cancelled (32-36) g/dL RDW Std Deviation 53.0 H Cancelled (36.4-46.3) fL RDW Coeff of Yevgeniy 15.3 H Cancelled (11.5-14.5) % Plt Count 285 Cancelled (130-400) K/uL MPV 10.2 Cancelled (7.4-10.4) fL Immature Gran % (Auto) 0.3 Cancelled Neut % (Auto) 75.6 Cancelled Lymph % (Auto) 10.9 Cancelled Heard % (Auto) 10.1 Cancelled Eos % (Auto) 2.8 Cancelled Baso % (Auto) 0.3 Cancelled Neut # (Auto) 5.06 Cancelled Lymph # (Auto) 0.73 L Cancelled Heard # (Auto) 0.68 H Cancelled Eos # (Auto) 0.19 Cancelled Baso # (Auto) 0.02 Cancelled Immature Gran # (Auto) 0.02 Cancelled Absolute Nucleated RBC Cancelled Nucleated RBC % (auto) Cancelled Neutrophils % (Manual) Cancelled Band Neutrophils % Cancelled Lymphocytes % (Manual) Cancelled Prolymphocyte % Cancelled Reactive Lymphs % (Man) Cancelled Monocytes % (Manual) Cancelled Eosinophils % (Manual) Cancelled Basophils % (Manual) Cancelled Metamyelocytes % (Man) Cancelled Myelocytes % (Man) Cancelled Promyelocytes % (Man) Cancelled Blast Cells % (Manual) Cancelled Plasma Cell % (Manual) Cancelled Other Cells % Cancelled Nucleated RBC % Cancelled Neutrophils # (Manual) Cancelled Band Neutrophils # Cancelled Total Absolute Neuts Cancelled Lymphocytes # (Manual) Cancelled Prolymphocyte # Cancelled Reactive Lymphs # Cancelled Total Abs Lymphocytes Cancelled Monocytes # (Manual) Cancelled Eosinophils # (Manual) Cancelled Basophils # (Manual) Cancelled Metamyelocytes # (Man) Cancelled Myelocytes # (Manual) Cancelled Promyelocytes # (Man) Cancelled Blast Cells # (Man) Cancelled Plasma Cell # (Manual) Cancelled Other Cells # Cancelled Nucleated RBCs # (Man) Cancelled Hypersegmented Neuts Cancelled Hyposegmented Neuts Cancelled Hypogranular Neuts Cancelled Large Granular Lymphs Cancelled # Lrg Granular Lymphs Cancelled Hairy Cells Cancelled Smudge Cells Cancelled Toxic Granulation Cancelled Toxic Vacuolation Cancelled Dohle Bodies Cancelled Jay Rods Cancelled Platelet Estimate Cancelled Hypogranular Platelets Cancelled Clumped Platelets Cancelled Giant Platelets Cancelled Platelet Satelliting Cancelled RBC Morphology Cancelled Polychromasia Cancelled Hypochromasia Cancelled Poikilocytosis Cancelled Basophilic Stippling Cancelled Anisocytosis Cancelled Microcytosis Cancelled Macrocytosis Cancelled Spherocytes Cancelled Pappenheimer Bodies Cancelled Sickle Cells Cancelled Target Cells Cancelled Tear Drop Cells Cancelled Ovalocytes Cancelled Stomatocytes Cancelled Payne-[place] Bodies Cancelled Echinocytes Cancelled Acanthocytes (Spur) Cancelled Rouleaux Cancelled RBC Agglutinates Cancelled Schistocytes Cancelled RBC Morph Comment Cancelled Sezary Cell Cancelled Sodium 137 (136-145) mmol/L Potassium 4.8 (3.5-5.1) mmol/L Chloride 103 (98-107) mmol/L Carbon Dioxide 31 (21-32) mmol/L Anion Gap 3.0 (3-11) BUN 37 H (7-18) mg/dl Creatinine 0.78 (0.6-1.2) mg/dl Est Cr Clr Drug Dosing 75.2 ml/min Est GFR ( Amer) 85.0 Est GFR (Non-Af Amer) 73.3 BUN/Creatinine Ratio 47.2 H (10-20) Glucose 140 H (70-99) mg/dl POC Glucose (70-99) mg/dl Calcium 8.1 L (8.5-10.1) mg/dl Magnesium 2.0 (1.8-2.4) mg/dl Total Bilirubin 0.9 (0.2-1) mg/dl AST 47 H (15-37) U/L ALT 46 (12-78) U/L Alkaline Phosphatase 170 H (45-117) U/L Total Protein 5.3 L (6.4-8.2) gm/dl Albumin 1.7 L (3.4-5.0) gm/dl Globulin 3.6 (2.5-4.0) gm/dl Albumin/Globulin Ratio 0.5 L (0.9-2) 11/17/20 11/16/20 11/16/20 Range/Units 07:34 20:59 19:53 WBC 7.49 (4.8-10.8) K/uL RBC 2.93 L (4.2-5.4) M/uL Hgb 8.9 L (12.0-16.0) g/dL Hct 28.1 L (37-47) % MCV 95.9 (80-100) fL MCH 30.4 (25-34) pg MCHC 31.7 L (32-36) g/dL RDW Std Deviation 53.2 H (36.4-46.3) fL RDW Coeff of Yevgeniy 15.3 H (11.5-14.5) % Plt Count 291 (130-400) K/uL MPV 10.3 (7.4-10.4) fL Immature Gran % (Auto) Neut % (Auto) Lymph % (Auto) Heard % (Auto) Eos % (Auto) Baso % (Auto) Neut # (Auto) Lymph # (Auto) Heard # (Auto) Eos # (Auto) Baso # (Auto) Immature Gran # (Auto) Absolute Nucleated RBC Nucleated RBC % (auto) Neutrophils % (Manual) Band Neutrophils % Lymphocytes % (Manual) Prolymphocyte % Reactive Lymphs % (Man) Monocytes % (Manual) Eosinophils % (Manual) Basophils % (Manual) Metamyelocytes % (Man) Myelocytes % (Man) Promyelocytes % (Man) Blast Cells % (Manual) Plasma Cell % (Manual) Other Cells % Nucleated RBC % Neutrophils # (Manual) Band Neutrophils # Total Absolute Neuts Lymphocytes # (Manual) Prolymphocyte # Reactive Lymphs # Total Abs Lymphocytes Monocytes # (Manual) Eosinophils # (Manual) Basophils # (Manual) Metamyelocytes # (Man) Myelocytes # (Manual) Promyelocytes # (Man) Blast Cells # (Man) Plasma Cell # (Manual) Other Cells # Nucleated RBCs # (Man) Hypersegmented Neuts Hyposegmented Neuts Hypogranular Neuts Large Granular Lymphs # Lrg Granular Lymphs Hairy Cells Smudge Cells Toxic Granulation Toxic Vacuolation Dohle Bodies Jay Rods Platelet Estimate Hypogranular Platelets Clumped Platelets Giant Platelets Platelet Satelliting RBC Morphology Polychromasia Hypochromasia Poikilocytosis Basophilic Stippling Anisocytosis Microcytosis Macrocytosis Spherocytes Pappenheimer Bodies Sickle Cells Target Cells Tear Drop Cells Ovalocytes Stomatocytes Payne-[place] Bodies Echinocytes Acanthocytes (Spur) Rouleaux RBC Agglutinates Schistocytes RBC Morph Comment Sezary Cell Sodium (136-145) mmol/L Potassium (3.5-5.1) mmol/L Chloride (98-107) mmol/L Carbon Dioxide (21-32) mmol/L Anion Gap (3-11) BUN (7-18) mg/dl Creatinine (0.6-1.2) mg/dl Est Cr Clr Drug Dosing ml/min Est GFR ( Amer) Est GFR (Non-Af Amer) BUN/Creatinine Ratio (10-20) Glucose (70-99) mg/dl POC Glucose 140 H 173 H (70-99) mg/dl Calcium (8.5-10.1) mg/dl Magnesium (1.8-2.4) mg/dl Total Bilirubin (0.2-1) mg/dl AST (15-37) U/L ALT (12-78) U/L Alkaline Phosphatase (45-117) U/L Total Protein (6.4-8.2) gm/dl Albumin (3.4-5.0) gm/dl Globulin (2.5-4.0) gm/dl Albumin/Globulin Ratio (0.9-2) 11/16/20 11/16/20 Range/Units 16:05 11:23 WBC (4.8-10.8) K/uL RBC (4.2-5.4) M/uL Hgb (12.0-16.0) g/dL Hct (37-47) % MCV (80-100) fL MCH (25-34) pg MCHC (32-36) g/dL RDW Std Deviation (36.4-46.3) fL RDW Coeff of Yevgeniy (11.5-14.5) % Plt Count (130-400) K/uL MPV (7.4-10.4) fL Immature Gran % (Auto) Neut % (Auto) Lymph % (Auto) Heard % (Auto) Eos % (Auto) Baso % (Auto) Neut # (Auto) Lymph # (Auto) Heard # (Auto) Eos # (Auto) Baso # (Auto) Immature Gran # (Auto) Absolute Nucleated RBC Nucleated RBC % (auto) Neutrophils % (Manual) Band Neutrophils % Lymphocytes % (Manual) Prolymphocyte % Reactive Lymphs % (Man) Monocytes % (Manual) Eosinophils % (Manual) Basophils % (Manual) Metamyelocytes % (Man) Myelocytes % (Man) Promyelocytes % (Man) Blast Cells % (Manual) Plasma Cell % (Manual) Other Cells % Nucleated RBC % Neutrophils # (Manual) Band Neutrophils # Total Absolute Neuts Lymphocytes # (Manual) Prolymphocyte # Reactive Lymphs # Total Abs Lymphocytes Monocytes # (Manual) Eosinophils # (Manual) Basophils # (Manual) Metamyelocytes # (Man) Myelocytes # (Manual) Promyelocytes # (Man) Blast Cells # (Man) Plasma Cell # (Manual) Other Cells # Nucleated RBCs # (Man) Hypersegmented Neuts Hyposegmented Neuts Hypogranular Neuts Large Granular Lymphs # Lrg Granular Lymphs Hairy Cells Smudge Cells Toxic Granulation Toxic Vacuolation Dohle Bodies Jay Rods Platelet Estimate Hypogranular Platelets Clumped Platelets Giant Platelets Platelet Satelliting RBC Morphology Polychromasia Hypochromasia Poikilocytosis Basophilic Stippling Anisocytosis Microcytosis Macrocytosis Spherocytes Pappenheimer Bodies Sickle Cells Target Cells Tear Drop Cells Ovalocytes Stomatocytes Payne-[place] Bodies Echinocytes Acanthocytes (Spur) Rouleaux RBC Agglutinates Schistocytes RBC Morph Comment Sezary Cell Sodium (136-145) mmol/L Potassium (3.5-5.1) mmol/L Chloride (98-107) mmol/L Carbon Dioxide (21-32) mmol/L Anion Gap (3-11) BUN (7-18) mg/dl Creatinine (0.6-1.2) mg/dl Est Cr Clr Drug Dosing ml/min Est GFR ( Amer) Est GFR (Non-Af Amer) BUN/Creatinine Ratio (10-20) Glucose (70-99) mg/dl POC Glucose 142 H 153 H (70-99) mg/dl Calcium (8.5-10.1) mg/dl Magnesium (1.8-2.4) mg/dl Total Bilirubin (0.2-1) mg/dl AST (15-37) U/L ALT (12-78) U/L Alkaline Phosphatase (45-117) U/L Total Protein (6.4-8.2) gm/dl Albumin (3.4-5.0) gm/dl Globulin (2.5-4.0) gm/dl Albumin/Globulin Ratio (0.9-2) PG Care Time/CCT Total # of Minutes Spent Total Time Spent with Patient: Total time spent is greater than 50% in coordination of care (as documented) at patient's floor/unit and/or counseling patient: Coding Level of Care Code 13992 Subseq Hosp Care Lvl 3 Diagnoses Acute blood loss anemia D62 GI bleed K92.2 Peptic ulcer disease K27.9 Hypotension I95.9 Periprosthetic fracture around internal prosthetic left hip joint M97.02XA Encounter type: initial encounter Hyperkalemia E87.5 Vomiting and diarrhea R11.10; R19.7 Chronic respiratory failure with hypoxia J96.11 Type 2 diabetes mellitus, with long-term current use of insulin E11.9; Z79.4 HTN (hypertension) I10 Lab test positive for detection of COVID-19 virus U07.1 Pressure ulcer L89.90 Asymptomatic bacteriuria R82.71 Insomnia G47.00 C. difficile diarrhea A04.72 DVT prophylaxis Z29.9 (1) Periprosthetic fracture around internal prosthetic left hip joint Encounter type: initial encounter Qualified Code(s): M97.02XA - Periprosthetic fracture around internal prosthetic left hip joint, initial encounter
[2020-11-17 11:22] LABS: Partial Thromboplastin Ratio 0.8; Partial Thromboplastin Time 21.7 Seconds (21.0-31.0); Prothrombin Time 10.3 Seconds (9.0-12.0)
[2020-11-17 17:18] LABS: Hematocrit (blood only) 29.3 % (37-47); Hemoglobin 9.3 g/dL (12.0-16.0); Mean Corpuscular Hemoglobin 29.7 pg (25-34); Mean Corpuscular Hgb Conc 31.7 g/dL (32-36); Mean Corpuscular Volume 93.6 fL (80-100); Mean Platelet Volume 10.2 fL (7.4-10.4); Nucleated RBC % (auto) 1.4 %; Platelet Count 294 K/uL (130-400); RDW Coefficient of Variation 15.1 % (11.5-14.5); RDW Standard Deviation 51.2 fL (36.4-46.3); Red Blood Count 3.13 M/uL (4.2-5.4); White Blood Count 7.51 K/uL (4.8-10.8)
[2020-11-17 17:19] LABS: Basophils # (auto) 0.08 K/uL (0-0.2); Basophils % (auto) 1.1 %; Eosinophils # (auto) 0.25 K/uL (0-0.5); Eosinophils % (auto) 3.3 %; Immature Granulocytes # (auto) 0.13 K/uL (0.00-0.02); Immature Granulocytes % (auto) 1.7 %; Lymphocytes # (auto) 1.07 K/uL (1.2-3.4); Lymphocytes % (auto) 14.2 %; Monocytes # (auto) 0.72 K/uL (0.11-0.59); Monocytes % (auto) 9.6 %; Neutrophils # (auto) 5.26 K/uL (1.4-6.5); Neutrophils % (auto) 70.1 %
[2020-11-17] MEDS: MELATONIN 3 MG TAB PO SCH (21:06)
[2020-11-17] MEDS: SIMVASTATIN 40 MG TAB PO SCH (21:06)
[2020-11-17] MEDS ORDERED: ALBUT/IPRATROP 3MG/0.5MG NEB 3 ML VIAL NEB PRN (21:33)
[2020-11-18] MEDS: RASPBERRY SYRUP 5 ML UDP PO SCH ×3 (05:42→17:50)
[2020-11-18] MEDS: VANCOMYCIN HCL 125 MG/2.5ML SOLN PO SCH ×3 (05:42→17:50)
[2020-11-18 07:00] LABS: Basophils # (auto) 0.01 K/uL (0-0.2); Basophils % (auto) 0.2 %; Eosinophils # (auto) 0.14 K/uL (0-0.5); Eosinophils % (auto) 2.6 %; Hematocrit (blood only) 25.4 % (37-47); Immature Granulocytes # (auto) 0.03 K/uL (0.00-0.02); Immature Granulocytes % (auto) 0.6 %; Lymphocytes # (auto) 0.63 K/uL (1.2-3.4); Lymphocytes % (auto) 11.6 %; Mean Corpuscular Hemoglobin 30.3 pg (25-34); Mean Corpuscular Hgb Conc 31.5 g/dL (32-36); Mean Corpuscular Volume 96.2 fL (80-100); Mean Platelet Volume 9.9 fL (7.4-10.4); Monocytes # (auto) 0.56 K/uL (0.11-0.59); Monocytes % (auto) 10.3 %; Neutrophils # (auto) 4.07 K/uL (1.4-6.5); Neutrophils % (auto) 74.7 %; Platelet Count 277 K/uL (130-400); RDW Coefficient of Variation 15.2 % (11.5-14.5); RDW Standard Deviation 52.6 fL (36.4-46.3); Red Blood Count 2.64 M/uL (4.2-5.4); White Blood Count 5.44 K/uL (4.8-10.8)
[2020-11-18 07:34] LABS: BUN Creatinine Ratio 47.2 (10-20); Calcium 8.4 mg/dl (8.5-10.1); Creatinine Clr Calc Pharmacy 82.6 ml/min; Est GFR (African American) 95.2; Est GFR (Non-African American) 82.2; Magnesium 2.1 mg/dl (1.8-2.4); Potassium 4.6 mmol/L (3.5-5.1)
[2020-11-18] MEDS: NYSTATIN CR 15 GM TUBE EXT SCH ×2 (08:18→17:51)
[2020-11-18] MEDS: cephALEXin 500 MG CAP PO SCH ×4 (08:19→20:38)
[2020-11-18] MEDS: PANTOprazole 40 MG TAB PO SCH ×2 (08:19→20:39)
[2020-11-18] MEDS: FUROSEMIDE 20 MG TAB PO SCH (08:19)
[2020-11-18] MEDS: ASCORBIC ACID 500 MG TAB PO SCH (08:19)
[2020-11-18] MEDS: INSULIN GLARGINE SOLOSTAR 100 UNITS/ML 3 ML PEN SC SCH (08:20)
[2020-11-18] MEDS: prednisoLONE sod phos 1% 10 ML BTL OPL SCH (08:20)
[2020-11-18] MEDS: FLUTICASONE FUROATE 100MCG 14 PUFFS/INHALER INH SCH (08:20)
[2020-11-18] MEDS: INSULIN ASPART 100 UNITS/ML 3 ML PEN SC SCH ×4 (08:21→20:38)
[2020-11-18] MEDS ORDERED: SODIUM CHLORIDE 0.9% 250 ML IV PRN (09:05)
--- NOTE | 2020-11-18 09:56 | Hospitalist Progress Note ---
Date of Service November 18, 2020 Assessment & Plan (1) Acute blood loss anemia: Presented with Hb of 4.4 and low normal blood pressure after having melena, one BP reading in 70's systolic upon arrival last known hemoglobin at the beginning of the month was 10.5 when she was admitted for periprosthetic hip fracture on the left and then was around 7.5 when she was discharged from [facility] on 11/04 patient with several days of diarrhea, and then noted to have melena by staff at [facility] the day of admission Found here to be C. diff positive some intermittent abdominal pain, vomited once but not coffee ground emesis--> now resolved Initially given 3 units PRBCs, hemoglobin was stable at 8.5, coags normal. GI and anesthesia canceled the EGD on Thursday for possible comorbidities, but patient not agreeable to transfer to tertiary care Patient continued to have burgundy colored stools and hemoglobin dropped to 7.5 and was mildly hypotensive on the morning of 11/13 Patient was then agreeable to EGD after Palliative discussion with her and family. Anesthesia consultation and GI consultation appreciated EGD on 11/13 showed 2 no longer actively bleeding ulcers in the duodenum Gave another 1 unit of PRBCs on 11/13 Hgb remained stable since then at 9, despite having bleeding from left hip UNTIL 11/18 hgb dropped to 8.0 Did have one small black stool with some red/esau blood around it on night of 11/17----> suspect hgb drop from HIP BLEEDING, not GI so much Discussed with GI on 11/18--> plan to observe for further GIB, transfuse as needed if hgb <8, and could do colonoscopy on Thursday if has further GIB. Received IV Protonix x 4 days then converted to po PPI bid--> will need 2 to 3 months of PPI -discontinued Lovenox from post-op hip after receiving 2 weeks-worth Follow CBC now and type and cross fo r1 unit PRBCs daily CBC (2) GI bleed: With melena as above and now some red blood on 11/17 upper GI bleed , with elevated BUN and normal creatinine noted that she was on Lovenox BID for DVT prophylaxis at [facility] which is now discontinued Now status post EGD on 11/13 which showed duodenal ulcers as above Continue Protonix -now tolerating soft diet -follow BCC -possible colonoscopy as above if continued BRBPR (3) Peptic ulcer disease: as above (4) Hypotension: Blood pressures were low upon arrival and now improved after PRBC transfusions mentating clearly, making urine Now s/p 4 units PRBC and NS bolus Continue holding home telmisartan (5) Periprosthetic fracture around internal prosthetic left hip joint: suffered fracture at the beginning of October, was admitted 10/25/20 transferred to [facility] on 10/25 and she said she had surgical correc tion of the fracture on 10/28 was at [facility] for rehab but she said she was not doing much there-is not allowed to bear weight but was doing bed to chair transfers with a Jj lift no pain in left hip at this time consult PT/OT appreciated -I discussed her care with the orthopedic team at [facility] on 11/13-okay to remove emmanuel and place Steri-Strips on 11/13. She is to remain nonweightbeari ng on the left hip and has follow-up planned on 12/12 with orthopedic surgeon On 11/15 had continuous bleeding from distal portion of incision. WOund does not appear dehisced but bleeding from a small area between 2 previous staple sites. -consulted Ortho here to see if needs sutured--> for now applied pressure dressing and started po prophylactic abx with keflex does not appear to have large hematoma 11/16-11/17, bleeding persists but slowed down slightly with pressure dressings being changed out. Hgb stable Coags remain normal, plts normal, off all blood thinners---> no h/o previous bleeding issues, do not suspect VonWillebrands, renal function is normal, not on antiplatelets, no not suspect bleeding diathesis 11/18-dressing is soaked today but not as much -continue pressure dressings, awaiting recs from wound care on Thursday, could trial a wound vac to see if helps collapse the vein that's bleeding -pt has not wanted transfer in the past to [facility], would hope this would not be necessary for a superficial bleed -continue Olivares for now to prevent excessive manipulation and keep wound dry (6) Hyperkalemia: K of 6.3 on admission and remained persistently elevated x 2 days after multiple rounds of insulin and D50, IV Lasix, and calcium gluconate - no evidence of hemolysis reported on sample Cr is normal she was reportedly taking ARB which would be contributing and is now on hold no changes on tele monitor K+ finally normalized after starting standing bid IV lasix dosing--> K+ 4.6 and remains stable Continue to follow BMP and treat accordingly if remains elevated -continue Lasix 20 mg po daily (7) Vomiting and diarrhea: now resolved continue ZOfran prn diet as tolerated added sucralfate but she did not like the taste and aspirated on it--> discontinued Diarrhea with C. diff as below which is now much improved (8) Chronic respiratory failure with hypoxia: stable on her 3L, but reports some SOB overnight resolved with prn neb-she requests standing order for nebs as she does at home--> mad nebs tid -diuresing (9) Type 2 diabetes mellitus, with long-term current use of insulin: Glucose controlled to mildly elevated now that eating more -continue to hold home Trulicity, metformin Novolog SS achs gave regular insulin 10 units with dextrose in the ED for K on multiple occasions -increase Lantus to 10 units q AM (10) HTN (hypertension): holding anti-hypertensives with low BP and bleeding (11) Lab test positive for detection of COVID-19 virus: patient received vaccine back on 10/22 had diarrhea/vomiting after getting vaccine, caused her to pass out and fracture left hip she tested positive for COVID PCR on 10/25, only had GI symptoms, never had pneumonia. Test remains positive now but she is off precautions as it has been over 3 weeks no sick contacts, all of her family has tested negative according to her son Ankit (12) Pressure ulcer: * Pressure ulcer of left medial dorsal foot, POA, unstageable * Pressure ulcer of left medial buttocks POA, stage I * Pressure ulcer of left posterior heel(s) POA, unstageable Pressure ulcer of left lateral ankle, POA, unstageable Pressure ulcer of right lower posterior lateral back, POA, stage I Wound care following, follow wound care recommendations Offload pressure (13) Asymptomatic bacteriuria: UA is contaminated with epithelials Ur cx with GNR is asymptomatic,only 8ooo CFUs no treatment needed although is on keflex now anyway for wound (14) Insomnia: melatonin 6mg not helping - benadryl prn for sleep (15) C. difficile diarrhea: tested positive on 11/14 started po Vanco 125mg qid x 10 day course-lst day of tx will be / no further diarrhea now (16) DVT prophylaxis: SCDs only due to bleeding Disposition-continued stay medical/surgical floor, eventually dc to SNF- has been accepted at [facility] DNR/DNI Appreciate palliative care consultation for goals of care discussion Admission and Anticipated Discharge Date Admission Date: November 11, 2020 Subjective Pt reports nausea is gone, has some pain in left hip with rolling. She had a small black stool last evening with some red/esau blood around it. Pt denies abd pain. No more BMs since then. Hip dressing has not had to be changed since 1600 yesterday and finally is not soaked through so hopefully hip bleeding has stopped. Denies chest pain but reports SOB that was relieved with nebulizer treatment. SH eusually uses her nebs q3 hours all day scheduled at home and would like them to be scheduled here. Pt discouraged that she is still having so many issues and states "I don't think I'll make it out of here." Discussed her care and GI bleeding with GI today. Discussed her care with Ortho at bedside today Review of Systems Review of Systems: All systems reviewed & are unremarkable except as noted in HPI & below Physical Exam Constitutional: WD/WN, vitals as above + obese Eyes: + anicteric sclerae Neck: trachea midline, no thyromegaly Respiratory: normal respiratory effort, lungs clear to auscultation Cardiovascular: Rate/Rhythm: regular rate and regular rhythm Heart Sounds: no murmur Extremities: + edema (1+ pitting edema left lower extremity, trace pitting edema of the RLE) Chest (Breasts): Chest: + pacemaker (left chest wall) Gastrointestinal (Abdomen): normal bowel sounds, soft, nontender, no hepatosplenomegaly Musculoskeletal: Extremities: + extremities abnormal to inspection (Left hip with edema,prox incision intact,distal inc with 1cm open portion ), no cyanosis and no clubbing dressing blood-soaked and removed no erythema round entire wound Skin: no rashes, warm and dry Neurologic: moves all extremities and awake; no focal motor deficits Psychiatric: Orientation: alert and oriented x 3 Speech: normal rate/rhythm/volume of speech Affect: + depressed affect Thought Process: goal directed thought process Genitourinary: + abnormal external appearance (Olivares catheter in place) Results & Data Results & Data ([facility]) Vital Signs (Past 12 Hours) Vital Signs Temp Pulse Resp BP Pulse Ox 11/18/20 07:00 36.7 C 85 20 106/56 L 99 11/17/20 22:59 36.8 C 88 20 122/61 99 11/17/20 22:42 89 20 99 Laboratory Results 11/18/20 11/18/20 11/17/20 Range/Units 06:43 06:43 21:39 WBC 5.44 (4.8-10.8) K/uL RBC 2.64 L (4.2-5.4) M/uL Hgb 8.0 L (12.0-16.0) g/dL Hct 25.4 L (37-47) % MCV 96.2 (80-100) fL MCH 30.3 (25-34) pg MCHC 31.5 L (32-36) g/dL RDW Std Deviation 52.6 H (36.4-46.3) fL RDW Coeff of Yevgeniy 15.2 H (11.5-14.5) % Plt Count 277 (130-400) K/uL MPV 9.9 (7.4-10.4) fL Immature Gran % (Auto) 0.6 % Neut % (Auto) 74.7 % Lymph % (Auto) 11.6 % Kendall % (Auto) 10.3 % Eos % (Auto) 2.6 % Baso % (Auto) 0.2 % Neut # (Auto) 4.07 (1.4-6.5) K/uL Lymph # (Auto) 0.63 L (1.2-3.4) K/uL Kendall # (Auto) 0.56 (0.11-0.59) K/uL Eos # (Auto) 0.14 (0-0.5) K/uL Baso # (Auto) 0.01 (0-0.2) K/uL Immature Gran # (Auto) 0.03 H (0.00-0.02) K/uL Absolute Nucleated RBC (0-0) K/uL Nucleated RBC % (auto) % PT (9.0-12.0) Seconds INR (0.9-1.1) APTT (21.0-31.0) Seconds PTT Ratio Sodium 136 (136-145) mmol/L Potassium 4.6 (3.5-5.1) mmol/L Chloride 103 (98-107) mmol/L Carbon Dioxide 30 (21-32) mmol/L Anion Gap 3.0 (3-11) BUN 34 H (7-18) mg/dl Creatinine 0.71 (0.6-1.2) mg/dl Est Cr Clr Drug Dosing 82.6 ml/min Est GFR ( Amer) 95.2 Est GFR (Non-Af Amer) 82.2 BUN/Creatinine Ratio 47.2 H (10-20) Glucose 156 H (70-99) mg/dl POC Glucose 140 H (70-99) mg/dl Calcium 8.4 L (8.5-10.1) mg/dl Magnesium 2.1 (1.8-2.4) mg/dl 11/17/20 11/17/20 11/17/20 Range/Units 16:33 16:13 11:12 WBC 7.51 (4.8-10.8) K/uL RBC 3.13 L (4.2-5.4) M/uL Hgb 9.3 L (12.0-16.0) g/dL Hct 29.3 L (37-47) % MCV 93.6 (80-100) fL MCH 29.7 (25-34) pg MCHC 31.7 L (32-36) g/dL RDW Std Deviation 51.2 H (36.4-46.3) fL RDW Coeff of Yevgeniy 15.1 H (11.5-14.5) % Plt Count 294 (130-400) K/uL MPV 10.2 (7.4-10.4) fL Immature Gran % (Auto) 1.7 % Neut % (Auto) 70.1 % Lymph % (Auto) 14.2 % Kendall % (Auto) 9.6 % Eos % (Auto) 3.3 % Baso % (Auto) 1.1 % Neut # (Auto) 5.26 (1.4-6.5) K/uL Lymph # (Auto) 1.07 L (1.2-3.4) K/uL Kendall # (Auto) 0.72 H (0.11-0.59) K/uL Eos # (Auto) 0.25 (0-0.5) K/uL Baso # (Auto) 0.08 (0-0.2) K/uL Immature Gran # (Auto) 0.13 H (0.00-0.02) K/uL Absolute Nucleated RBC 0.10 H (0-0) K/uL Nucleated RBC % (auto) 1.4 % PT (9.0-12.0) Seconds INR (0.9-1.1) APTT (21.0-31.0) Seconds PTT Ratio Sodium (136-145) mmol/L Potassium (3.5-5.1) mmol/L Chloride (98-107) mmol/L Carbon Dioxide (21-32) mmol/L Anion Gap (3-11) BUN (7-18) mg/dl Creatinine (0.6-1.2) mg/dl Est Cr Clr Drug Dosing ml/min Est GFR ( Amer) Est GFR (Non-Af Amer) BUN/Creatinine Ratio (10-20) Glucose (70-99) mg/dl POC Glucose 130 H 161 H (70-99) mg/dl Calcium (8.5-10.1) mg/dl Magnesium (1.8-2.4) mg/dl 11/17/20 Range/Units 10:45 WBC (4.8-10.8) K/uL RBC (4.2-5.4) M/uL Hgb (12.0-16.0) g/dL Hct (37-47) % MCV (80-100) fL MCH (25-34) pg MCHC (32-36) g/dL RDW Std Deviation (36.4-46.3) fL RDW Coeff of Yevgeniy (11.5-14.5) % Plt Count (130-400) K/uL MPV (7.4-10.4) fL Immature Gran % (Auto) % Neut % (Auto) % Lymph % (Auto) % Kendall % (Auto) % Eos % (Auto) % Baso % (Auto) % Neut # (Auto) (1.4-6.5) K/uL Lymph # (Auto) (1.2-3.4) K/uL Kendall # (Auto) (0.11-0.59) K/uL Eos # (Auto) (0-0.5) K/uL Baso # (Auto) (0-0.2) K/uL Immature Gran # (Auto) (0.00-0.02) K/uL Absolute Nucleated RBC (0-0) K/uL Nucleated RBC % (auto) % PT 10.3 (9.0-12.0) Seconds INR 1.0 (0.9-1.1) APTT 21.7 (21.0-31.0) Seconds PTT Ratio 0.8 Sodium (136-145) mmol/L Potassium (3.5-5.1) mmol/L Chloride (98-107) mmol/L Carbon Dioxide (21-32) mmol/L Anion Gap (3-11) BUN (7-18) mg/dl Creatinine (0.6-1.2) mg/dl Est Cr Clr Drug Dosing ml/min Est GFR ( Amer) Est GFR (Non-Af Amer) BUN/Creatinine Ratio (10-20) Glucose (70-99) mg/dl POC Glucose (70-99) mg/dl Calcium (8.5-10.1) mg/dl Magnesium (1.8-2.4) mg/dl PG Care Time/CCT Total # of Minutes Spent Total Time Spent with Patient: Total time spent is greater than 50% in coordination of care (as documented) at patient's floor/unit and/or counseling patient: Coding Level of Care Code 21638 Subseq Hosp Care Lvl 3 Diagnoses Acute blood loss anemia D62 GI bleed K92.2 Peptic ulcer disease K27.9 Hypotension I95.9 Periprosthetic fracture around internal prosthetic left hip joint M97.02XA Encounter type: initial encounter Hyperkalemia E87.5 Vomiting and diarrhea R11.10; R19.7 Chronic respiratory failure with hypoxia J96.11 Type 2 diabetes mellitus, with long-term current use of insulin E11.9; Z79.4 HTN (hypertension) I10 Lab test positive for detection of COVID-19 virus U07.1 Pressure ulcer L89.90 Asymptomatic bacteriuria R82.71 Insomnia G47.00 C. difficile diarrhea A04.72 DVT prophylaxis Z29.9 (1) Periprosthetic fracture around internal prosthetic left hip joint Encounter type: initial encounter Qualified Code(s): M97.02XA - Periprosthetic fracture around internal prosthetic left hip joint, initial encounter
[2020-11-18 10:09] LABS: Hematocrit (blood only) 26.6 % (37-47); Hemoglobin 8.3 g/dL (12.0-16.0); Mean Corpuscular Hemoglobin 30.3 pg (25-34); Mean Corpuscular Hgb Conc 31.2 g/dL (32-36); Mean Corpuscular Volume 97.1 fL (80-100); Mean Platelet Volume 10.3 fL (7.4-10.4); Platelet Count 310 K/uL (130-400); RDW Standard Deviation 52.5 fL (36.4-46.3); Red Blood Count 2.74 M/uL (4.2-5.4); White Blood Count 5.57 K/uL (4.8-10.8)
[2020-11-18] MEDS ORDERED: INSULIN GLARGINE SOLOSTAR 100 UNITS/ML 3 ML PEN SC ONE (10:24)
--- NOTE | 2020-11-18 10:35 | Orthopedic Progress Note ---
Date of Service November 18, 2020 Assessment & Plan (1) Bleeding from wound: Patient does exhibit continued drainage from her wound. My recommendation is wound care consult to see if they can apply either hemostatic agent and/or pressure dressing. Should this fail to provide adequate hemostasis we would consider surgical closure of wound dehiscence with application of incisional wound VAC. We will continue to follow Admission and Anticipated Discharge Date Admission Date: November 11, 2020 Subjective Cady verbalizes no new complaints in regard to her hip Physical Exam Constitutional: WD/WN, vitals as above + obese Eyes: + anicteric sclerae Neck: trachea midline, no thyromegaly Respiratory: normal respiratory effort, lungs clear to auscultation Cardiovascular: Rate/Rhythm: regular rate and regular rhythm Heart Sounds: no murmur Extremities: + edema (1+ pitting edema left lower extremity, trace pitting edema of the RLE) Chest (Breasts): Chest: normal inspection of chest Gastrointestinal (Abdomen): normal bowel sounds, soft, nontender, no hepatosplenomegaly Musculoskeletal: Extremities: + extremities abnormal to inspection (Left hip with edema,prox incision intact,distal inc w/ dressing blood soake), no cyanosis and no clubbing Right hip shows a 1 inch area of dehiscence. She has continued serous drainage. No gross erythema or purulence Skin: no rashes, warm and dry + erythema (mild surrounding prox wound improved) Neurologic: moves all extremities and awake; no focal motor deficits Psychiatric: Orientation: alert and oriented x 3 Speech: normal rate/rhythm/volume of speech Thought Process: goal directed thought process Genitourinary: + abnormal external appearance (Olivares catheter in place) Results & Data ([facility]) Vital Signs (Past 12 Hours) Vital Signs Temp Pulse Resp BP Pulse Ox 11/18/20 07:00 36.7 C 85 20 106/56 L 99 11/17/20 22:59 36.8 C 88 20 122/61 99 11/17/20 22:42 89 20 99
[2020-11-18] MEDS: ALBUT/IPRATROP 3MG/0.5MG NEB 3 ML VIAL NEB SCH ×3 (11:15→19:43)
--- NOTE | 2020-11-18 12:39 | XRay Report ---
XR hip LT min 2V CLINICAL HISTORY: check alignment of hip replacement COMPARISON: Left femur radiographs November 15, 2020. FINDINGS: Left hip arthroplasty is noted. Hardware is intact. Cerclage wires fixate the subtrochante noble fracture of the left femur. Alignment of this portion of the fracture is unchanged since prior ex am. Intertrochanteric fragment is moderately displaced. There are no unexpected radiopaque foreign antony dies. Distal left femoral fixation plate is partially imaged IMPRESSION: Status post left hip arthroplasty with internal fixation of a subtrochanteric fracture of the left femur with cerclage wires. Subtrochanteric fracture in near anatomic alignment. Moderate di splacement of the intertrochanteric fragment. This finding is age indeterminate. ACT 112: Negative or not required by law. Electronically signed by: Benjamin Wilkinson M.D. 11/18/2020 12:37 PM
[2020-11-18] MEDS: SIMVASTATIN 40 MG TAB PO SCH (20:39)
[2020-11-18] MEDS: MELATONIN 3 MG TAB PO SCH (20:44)
[2020-11-19] MEDS: VANCOMYCIN HCL 125 MG/2.5ML SOLN PO SCH ×5 (00:06→23:49)
[2020-11-19] MEDS: RASPBERRY SYRUP 5 ML UDP PO SCH ×5 (00:06→23:49)
[2020-11-19] MEDS: diphenhydrAMINE Capsule 25 MG CAP PO PRN ×2 (00:06→22:11)
[2020-11-19] MEDS: NYSTATIN CR 15 GM TUBE EXT SCH ×4 (00:07→23:51)
[2020-11-19] MEDS: ALBUT/IPRATROP 3MG/0.5MG NEB 3 ML VIAL NEB SCH ×3 (07:19→19:42)
[2020-11-19 08:54] LABS: Basophils # (auto) 0.01 K/uL (0-0.2); Basophils % (auto) 0.2 %; Eosinophils # (auto) 0.15 K/uL (0-0.5); Hematocrit (blood only) 27.5 % (37-47); Hemoglobin 8.6 g/dL (12.0-16.0); Immature Granulocytes # (auto) 0.06 K/uL (0.00-0.02); Immature Granulocytes % (auto) 1.2 %; Lymphocytes # (auto) 0.72 K/uL (1.2-3.4); Lymphocytes % (auto) 14.6 %; Mean Corpuscular Hemoglobin 30.2 pg (25-34); Mean Corpuscular Hgb Conc 31.3 g/dL (32-36); Mean Corpuscular Volume 96.5 fL (80-100); Mean Platelet Volume 10.3 fL (7.4-10.4); Monocytes # (auto) 0.59 K/uL (0.11-0.59); Monocytes % (auto) 11.9 %; Neutrophils # (auto) 3.41 K/uL (1.4-6.5); Neutrophils % (auto) 69.1 %; Platelet Count 294 K/uL (130-400); RDW Coefficient of Variation 15.1 % (11.5-14.5); Red Blood Count 2.85 M/uL (4.2-5.4); White Blood Count 4.94 K/uL (4.8-10.8)
[2020-11-19 09:19] LABS: BUN Creatinine Ratio 43.9 (10-20); Calcium 8.6 mg/dl (8.5-10.1); Creatinine Clr Calc Pharmacy 91.7 ml/min; Est GFR (African American) 99.8; Est GFR (Non-African American) 86.1; Potassium 4.4 mmol/L (3.5-5.1)
[2020-11-19] MEDS: PANTOprazole 40 MG TAB PO SCH ×2 (09:27→21:02)
[2020-11-19] MEDS: cephALEXin 500 MG CAP PO SCH ×4 (09:27→21:01)
[2020-11-19] MEDS: ASCORBIC ACID 500 MG TAB PO SCH (09:27)
[2020-11-19] MEDS: FUROSEMIDE 20 MG TAB PO SCH (09:27)
[2020-11-19] MEDS: FLUTICASONE FUROATE 100MCG 14 PUFFS/INHALER INH SCH (09:28)
[2020-11-19] MEDS: INSULIN ASPART 100 UNITS/ML 3 ML PEN SC SCH ×4 (09:30→21:00)
[2020-11-19] MEDS: INSULIN GLARGINE SOLOSTAR 100 UNITS/ML 3 ML PEN SC SCH (09:31)
[2020-11-19] MEDS: prednisoLONE sod phos 1% 10 ML BTL OPL SCH (09:34)
--- NOTE | 2020-11-19 11:56 | Hospitalist Progress Note ---
Date of Service November 19, 2020 Assessment & Plan (1) Acute blood loss anemia: Presented with Hb of 4.4 and low normal blood pressure after having melena, one BP reading in 70's systolic upon arrival last known hemoglobin at the beginning of the month was 10.5 when she was admitted for periprosthetic hip fracture on the left and then was around 7.5 when she was discharged from [facility] on 11/04 patient with several days of diarrhea, and then noted to have melena by staff at [facility] the day of admission Found here to be C. diff positive some intermittent abdominal pain, vomited once but not coffee ground emesis--> now resolved Initially given 3 units PRBCs, hemoglobin was stable at 8.5, coags normal. GI and anesthesia canceled the EGD on Thursday for possible comorbidities, but patient not agreeable to transfer to tertiary care Patient continued to have burgundy colored stools and hemoglobin dropped to 7.5 and was mildly hypotensive on the morning of 11/13 Patient was then agreeable to EGD after Palliative discussion with her and family. Anesthesia consultation and GI consultation appreciated EGD on 11/13 showed 2 no longer actively bleeding ulcers in the duodenum Gave another 1 unit of PRBCs on 11/13 Hgb is stable at 8.6 today Received IV Protonix x 4 days then converted to po PPI bid--> will need 2 to 3 months of PPI -discontinued Lovenox from post-op hip after receiving 2 weeks-worth (2) GI bleed: With melena as above and now some red blood on 11/17 upper GI bleed , with elevated BUN and normal creatinine noted that she was on Lovenox BID for DVT prophylaxis at [facility] which is now discontinued Now status post EGD on 11/13 which showed duodenal ulcers as above Continue Protonix PO -now tolerating soft diet -follow Hb, it is 8.6 today (3) Peptic ulcer disease: as above (4) Hypotension: Blood pressures were low upon arrival and now improved after PRBC transfusions mentating clearly, making urine Now s/p 4 units PRBC and NS bolus BP is elevated today (5) Periprosthetic fracture around internal prosthetic left hip joint: suffered fracture at the beginning of October, was admitted 10/25/20 transferred to [facility] on 10/25 and she said she had surgical correction of the fracture on 10/28 was at [facility] for rehab but she said she was not doing much there-is not allowed to bear weight but was doing bed to chair transfers with a Jj lift no pain in left hip at this time consult PT/OT appreciated Dr. Flores discussed her care with the orthopedic team at [facility] on 11/13-okay to remove emmanuel and place Steri-Strips on 11/13. She is to remain nonweightbearing on the left hip and has follow-up planned on 12/12 with orthopedic surgeon On 11/15 had continuous bleeding from distal portion of incision. Wound does not appear dehisced but bleeding from a small area between 2 previous staple sites. -consulted Ortho at [facility], placed wound vac for pressure dressing hopeful that the bleeding will stop if she would require exploration of wound ortho would recommend return to [facility] as they performed the original surgery (6) Hyperkalemia: K of 6.3 on admission and remained persistently elevated x 2 days after multiple rounds of insulin and D50, IV Lasix, and calcium gluconate - no evidence of hemolysis reported on sample Cr is normal she was reportedly taking ARB which would be contributing and is now on hold no changes on tele monitor K+ finally normalized after starting standing bid IV lasix dosing--> K+ 4.4 and remains stable Continue to follow BMP and treat accordingly if remains elevated -continue Lasix 20 mg po daily (7) Vomiting and diarrhea: now resolved continue ZOfran prn diet as tolerated added sucralfate but she did not like the taste and aspirated on it--> discontinued Diarrhea with C. diff as below which is now much improved (8) Chronic respiratory failure with hypoxia: stable on her 2-3L, but reports some SOB overnight resolved with prn neb- she requests standing order for nebs as she does at home--> mad nebs tid -diuresing (9) Type 2 diabetes mellitus, with long-term current use of insulin: Glucose controlled to mildly elevated now that eating more -continue to hold home Trulicity, metformin Novolog SS achs Lantus to 10 units q AM monitor for hypoglycemia (10) HTN (hypertension): holding anti-hypertensives with low BP and bleeding (11) Lab test positive for detection of COVID-19 virus: patient received vaccine back on 10/22 had diarrhea/vomiting after getting vaccine, caused her to pass out and fracture left hip she tested positive for COVID PCR on 10/25, only had GI symptoms, never had pneumonia. Test remains positive now but she is off precautions as it has been over 3 weeks no sick contacts, all of her family has tested negative according to her son Ankit (12) Pressure ulcer: * Pressure ulcer of left medial dorsal foot, POA, unstageable * Pressure ulcer of left medial buttocks POA, stage I * Pressure ulcer of left posterior heel(s) POA, unstageable Pressure ulcer of left lateral ankle, POA, unstageable Pressure ulcer of right lower posterior lateral back, POA, stage I Wound care following, follow wound care recommendations Offload pressure (13) Asymptomatic bacteriuria: UA is contaminated with epithelials Ur cx with GNR is asymptomatic,only 8ooo CFUs no treatment needed although is on keflex now anyway for wound (14) Insomnia: melatonin 6mg not helping - benadryl prn for sleep (15) C. 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, topical, trying to apply some pressure to get bleeding to stop Hb is trending up to 8.6 from 8.3, no signs of GI bleeding, had a soft stool, more formed, responding well to Vanco PO no chest pain, no dyspnea, eating okay, no vomiting, no fever/chills she accepts the plan to go to [facility] once the bleeding situation is sorted out she said that today is her wedding anniversary, 56 years today, told her about our revised visitor policy, can have visitors from 2-6pm Review of Systems Review of Systems: All systems reviewed & are unremarkable except as noted in Subjective Constitutional: + weakness; no fever and no fatigue Respiratory: no cough and no dyspnea Cardiovascular: no chest pain and no edema Gastrointestinal: + fecal incontinence; no abdominal pain, no nausea, no vomiting, no constipation, no diarrhea/loose stools, no blood in stools and no melena Musculoskeletal: + muscle weakness Physical Exam Constitutional: well developed, well nourished, cooperative and + overweight; no acute distress Neck: trachea midline, no thyromegaly Respiratory: normal respiratory effort, lungs clear to auscultation Cardiovascular: RRR, no murmur, no edema Gastrointestinal (Abdomen): normal bowel sounds, soft, nontender, no hepatosplenomegaly Musculoskeletal: Head/Neck/Chest: normocephalic, head atraumatic and neck supple Extremities: + limited ROM of extremities and + abnormal strength (generalized weakness); no cyanosis, no clubbing and no petechiae Skin: no rashes, warm and dry + ulcer (pressure ulcers) and + wound (left hip wound) Neurologic: patellar DTR's 2+ bilat, sensation intact and PERRL, EOMI, accommodation nl, no face palsy, no dysarthria Psychiatric: A+Ox3, euthymic affect Lymphatic: no cervical or axillary lymphadenopathy Results & Data Results & Data ([facility]) Vital Signs (Past 12 Hours) Vital Signs Temp Pulse Resp BP Pulse Ox 11/19/20 07:22 86 16 97 11/19/20 07:00 37 C 84 20 135/57 L 98 Laboratory Results Laboratory Results - last 24 hr 11/18/20 11/18/20 11/18/20 12:26 16:12 20:13 WBC RBC Hgb Hct MCV MCH MCHC RDW Std Deviation RDW Coeff of Yevgeniy Plt Count MPV Immature Gran % (Auto) Neut % (Auto) Lymph % (Auto) Yuba % (Auto) Eos % (Auto) Baso % (Auto) Neut # (Auto) Lymph # (Auto) [place] # (Auto) Eos # (Auto) Baso # (Auto) Immature Gran # (Auto) Sodium Potassium Chloride Carbon Dioxide Anion Gap BUN Creatinine Est Cr Clr Drug Dosing Est GFR ( Amer) Est GFR (Non-Af Amer) BUN/Creatinine Ratio Glucose POC Glucose 182 H 202 H 154 H Calcium 11/19/20 11/19/20 11/19/20 07:22 08:11 08:11 WBC 4.94 RBC 2.85 L Hgb 8.6 L Hct 27.5 L MCV 96.5 MCH 30.2 MCHC 31.3 L RDW Std Deviation 53.0 H RDW Coeff of Yevgeniy 15.1 H Plt Count 294 MPV 10.3 Immature Gran % (Auto) 1.2 Neut % (Auto) 69.1 Lymph % (Auto) 14.6 [place]uba % (Auto) 11.9 Eos % (Auto) 3.0 Baso % (Auto) 0.2 Neut # (Auto) 3.41 Lymph # (Auto) 0.72 L [place] # (Auto) 0.59 Eos # (Auto) 0.15 Baso # (Auto) 0.01 Immature Gran # (Auto) 0.06 H Sodium 138 Potassium 4.4 Chloride 100 Carbon Dioxide 32 Anion Gap 6.0 BUN 28 H Creatinine 0.64 Est Cr Clr Drug Dosing 91.7 Est GFR ( Amer) 99.8 Est GFR (Non-Af Amer) 86.1 BUN/Creatinine Ratio 43.9 H Glucose 148 H POC Glucose 155 H Calcium 8.6 11/19/20 11:26 WBC RBC Hgb Hct MCV MCH MCHC RDW Std Deviation RDW Coeff of Yevgeniy Plt Count MPV Immature Gran % (Auto) Neut % (Auto) Lymph % (Auto) [place] % (Auto) Eos % (Auto) Baso % (Auto) Neut # (Auto) Lymph # (Auto) [place] # (Auto) Eos # (Auto) Baso # (Auto) Immature Gran # (Auto) Sodium Potassium Chloride Carbon Dioxide Anion Gap BUN Creatinine Est Cr Clr Drug Dosing Est GFR ( Amer) Est GFR (Non-Af Amer) BUN/Creatinine Ratio Glucose POC Glucose 180 H Calcium Medications Administered Current Inpatient Medications Albuterol (Albut/Ipratrop 3mg/0.5mg Neb 3 Ml Vial) 3 ml NEB TIDR CRISTINA Stop: 12/18/20 09:59 Last Admin: 11/19/20 07:19 Dose: 3 ml Documented by: Ascorbic Acid (Ascorbic Acid 500 Mg Tab) 500 mg PO DAILY CRISTINA Stop: 12/18/20 08:59 Last Admin: 11/19/20 09:27 Dose: 500 mg Documented by: Cephalexin HCl (Cephalexin 500 Mg Cap) 500 mg PO QID CRISTINA Stop: 11/22/20 17:29 Last Admin: 11/19/20 09:27 Dose: 500 mg Documented by: Dextrose (Dextrose 50% 50 Ml Syringe) 25 - 50 ml IV UD PRN; Protocol PRN Reason: Hypoglycemia Protocol Stop: 12/11/20 09:59 Diphenhydramine HCl (Diphenhydramine Capsule 25 Mg Cap) 25 mg PO HS PRN PRN Reason: insomnia Stop: 12/15/20 14:37 Last Admin: 11/19/20 00:06 Dose: 25 mg Documented by: Fluticasone Furoate (Fluticasone Furoate 100mcg 14 Puffs/Inhaler) [facility] Stop: 12/11/20 10:29 Last Admin: 11/19/20 09:28 Dose: 1 puffs Documented by: Furosemide (Furosemide 20 Mg Tab) 20 mg PO QAM CRISTINA Stop: 12/18/20 08:59 Last Admin: 11/19/20 09:27 Dose: 20 mg Documented by: Glucagon (Glucagon For Inj 1 Mg Vial) 1 mg IM UD PRN; Protocol PRN Reason: Hypoglycemia Protocol Stop: 12/11/20 09:59 Glucose (Glucose 40% Gel 15 Gm Tube) 15 - 30 gm PO UD PRN; Protocol PRN Reason: Hypoglycemia Protocol Stop: 12/11/20 09:59 Glucose (Glucose 10 Tabs/Tube) 4 - 8 tabs PO UD PRN; Protocol PRN Reason: Hypoglycemia Protocol Stop: 12/11/20 09:59 Insulin Aspart (Insulin Aspart 100 Units/Ml 3 Ml Pen) 0 units SC ACHS [facility] Stop: 12/11/20 09:40 Last Admin: 11/19/20 09:30 Dose: 6 units Documented by: Insulin Glargine (Insulin Glargine Solostar 100 Units/Ml 3 Ml Pen) 10 [facility] SC [facility] Stop: 12/19/20 08:59 Last Admin: 11/19/20 09:31 Dose: 10 units Documented by: Melatonin (Melatonin 3 Mg Tab) 6 mg PO HS CRISTINA Stop: 12/14/20 20:59 Last Admin: 11/18/20 20:44 Dose: 6 mg Documented by: Miscellaneous (Carbohydrates For Hypoglycemia ) 15 - 30 gm PO UD PRN PRN Reason: Hypoglycemia Treatment Stop: 12/11/20 09:59 Nystatin (Nystatin Cr 15 Gm Tube) 1 appln EXT QS CRISTINA Stop: 11/23/20 23:00 Last Admin: 11/19/20 09:27 Dose: 1 appln Documented by: Nystatin (Nystatin Powder 15gm Btl) 1 appln EXT BID PRN PRN Reason: skin fold rash Stop: 12/15/20 14:37 Ondansetron HCl (Ondansetron Inj 2 Mg/Ml 2 Ml Vial) 4 mg IV Q6H PRN PRN Reason: Nausea Stop: 12/11/20 09:40 Pantoprazole Sodium (Pantoprazole 40 Mg Tab) 40 mg PO BID CRISTINA Stop: 12/16/20 08:59 Last Admin: 11/19/20 09:27 Dose: 40 mg Documented by: Prednisolone Sodium Phosphate (Prednisolone Sod Phos 1% 10 Ml Btl) 1 drops OPL DAILY CRISTINA Stop: 12/11/20 09:40 Last Admin: 11/19/20 09:34 Dose: 1 drops Documented by: Raspberry (Raspberry Syrup 5 Ml Udp) 5 ml PO Q6 CRISTINA Stop: 11/28/20 14:59 Last Admin: 11/19/20 05:26 Dose: 5 ml Documented by: Simvastatin (Simvastatin 40 Mg Tab) 40 mg PO HS CRISTINA Stop: 12/17/20 20:59 Last Admin: 11/18/20 20:39 Dose: 40 mg Documented by: Vancomycin HCl (Vancomycin Hcl 125 Mg/2.5ml Soln) 125 mg PO Q6 CRISTINA Stop: 11/24/20 14:59 Last Admin: 11/19/20 05:26 Dose: 125 mg Documented by: PG Care Time/CCT Total # of Minutes Spent Total Time Spent with Patient: Total time spent is greater than 50% in coordination of care (as documented) at patient's floor/unit and/or counseling patient: Coding Level of Care Code 67597 Subseq Hosp Care Lvl 3 Diagnoses Acute blood loss anemia D62 GI bleed K92.2 Peptic ulcer disease K27.9 Hypotension I95.9 Periprosthetic fracture around internal prosthetic left hip joint M97.02XA Encounter type: initial encounter Hyperkalemia E87.5 Vomiting and diarrhea R11.10; R19.7 Chronic respiratory failure with hypoxia J96.11 Type 2 diabetes mellitus, with long-term current use of insulin E11.9; Z79.4 HTN (hypertension) I10 Lab test positive for detection of COVID-19 virus U07.1 Pressure ulcer L89.90 Asymptomatic bacteriuria R82.71 Insomnia G47.00 C. difficile diarrhea A04.72 DVT prophylaxis Z29.9 (1) Periprosthetic fracture around internal prosthetic left hip joint Encounter type: initial encounter Qualified Code(s): M97.02XA - Periprosthetic fracture around internal prosthetic left hip joint, initial encounter
--- NOTE | 2020-11-19 12:20 | Orthopedic Progress Note ---
Date of Service November 19, 2020 Assessment & Plan (1) Bleeding from wound: I discussed the case with . Plans will be to go ahead with placement of a wound VAC. After discussing it with Jessica Montes from wound care, plans will be to use a regular wound VAC with the possibility of placing some of the collection sponge into the wound itself. We will see how this progresses over time. I have discussed with the patient that Dr. Trinh feels that if this wound VAC does not help the patient, that she should be returned to [facility] for her physician that did the surgery,to possibly explore the wound. Patient understands and is hoping that the wound VAC will work. We will continue to monitor the drainage with the wound VAC for now. Admission and Anticipated Discharge Date Admission Date: November 11, 2020 Subjective Patient sitting up in bed awake and alert. Patient seen today with the wound care team. Nursing team is present and states that the dressings have been changed at least 3 times a day over the weekend. Patient states that she has been having some increased pain in her knee and ankle yesterday but does not appear to be as bad today. With her continued wound drainage, wound care has been consulted to place a wound VAC on the wound at this time. Physical Exam Physical Exam: Dressings have been removed. She has a serous/bloody drainage at this time. This appears little different when I first saw her last week. No purulence. Some slight erythema around the edges of the wound itself. The wound has gotten bigger and was approximately a centimeter the last time I saw it. After measuring it, it is 2-1/2 cm at this time. There is no foul odor. No gross purulence. Pressing on the thigh around the wound does not increase or decrease the amount of drainage. The area around the wound itself is not erythematous and does not feel warm to the touch. Taking the left lower extremity through gentle range of motion does not cause her any discomfort. Calves are soft and nontender. Neurovascular intact. Toes are mobile. The hip appears located. Results & Data ([facility]) Vital Signs (Past 12 Hours) Vital Signs Temp Pulse Resp BP Pulse Ox 11/19/20 07:22 86 16 97 11/19/20 07:00 37 C 84 20 135/57 L 98
[2020-11-19] MEDS: SIMVASTATIN 40 MG TAB PO SCH (21:02)
[2020-11-19] MEDS: MELATONIN 3 MG TAB PO SCH (21:04)
[2020-11-20] MEDS: RASPBERRY SYRUP 5 ML UDP PO SCH ×3 (05:44→18:13)
[2020-11-20] MEDS: VANCOMYCIN HCL 125 MG/2.5ML SOLN PO SCH ×3 (05:44→18:12)
[2020-11-20] MEDS: ALBUT/IPRATROP 3MG/0.5MG NEB 3 ML VIAL NEB SCH ×3 (07:02→19:14)
[2020-11-20 07:54] LABS: Hemoglobin 8.2 g/dL (12.0-16.0); Mean Corpuscular Hgb Conc 31.5 g/dL (32-36); Mean Corpuscular Volume 95.2 fL (80-100); Mean Platelet Volume 10.2 fL (7.4-10.4); Platelet Count 273 K/uL (130-400); RDW Standard Deviation 51.8 fL (36.4-46.3); Red Blood Count 2.73 M/uL (4.2-5.4); White Blood Count 5.06 K/uL (4.8-10.8)
[2020-11-20 08:21] LABS: BUN Creatinine Ratio 35.8 (10-20); Calcium 8.4 mg/dl (8.5-10.1); Creatinine Clr Calc Pharmacy 88.9 ml/min; Est GFR (African American) 98.8; Est GFR (Non-African American) 85.2; Potassium 4.6 mmol/L (3.5-5.1)
[2020-11-20] MEDS: INSULIN ASPART 100 UNITS/ML 3 ML PEN SC SCH ×4 (09:03→21:16)
[2020-11-20] MEDS: INSULIN GLARGINE SOLOSTAR 100 UNITS/ML 3 ML PEN SC SCH (09:04)
[2020-11-20] MEDS: FLUTICASONE FUROATE 100MCG 14 PUFFS/INHALER INH SCH (09:08)
[2020-11-20] MEDS: FUROSEMIDE 20 MG TAB PO SCH (09:09)
[2020-11-20] MEDS: ASCORBIC ACID 500 MG TAB PO SCH (09:09)
[2020-11-20] MEDS: NYSTATIN CR 15 GM TUBE EXT SCH ×2 (09:09→16:07)
[2020-11-20] MEDS: PANTOprazole 40 MG TAB PO SCH ×2 (09:09→21:46)
[2020-11-20] MEDS: cephALEXin 500 MG CAP PO SCH ×4 (09:10→21:18)
[2020-11-20] MEDS: prednisoLONE sod phos 1% 10 ML BTL OPL SCH (09:10)
--- NOTE | 2020-11-20 12:40 | Hospitalist Progress Note ---
Date of Service November 20, 2020 Assessment & Plan (1) Acute blood loss anemia: Presented with Hb of 4.4 and low normal blood pressure after having melena, one BP reading in 70's systolic upon arrival last known hemoglobin at the beginning of the month was 10.5 when she was admitted for periprosthetic hip fracture on the left and then was around 7.5 when she was discharged from [facility] on 11/04 patient with several days of diarrhea, and then noted to have melena by staff at [facility] the day of admission Found here to be C. diff positive some intermittent abdominal pain, vomited once but not coffee ground emesis--> now resolved Initially given 3 units PRBCs, hemoglobin was stable at 8.5, coags normal. GI and anesthesia canceled the EGD on Thursday for possible comorbidities, but patient not agreeable to transfer to tertiary care Patient continued to have burgundy colored stools and hemoglobin dropped to 7.5 and was mildly hypotensive on the morning of 11/13 Patient was then agreeable to EGD after Palliative discussion with her and family. Anesthesia consultation and GI consultation appreciated EGD on 11/13 showed 2 no longer actively bleeding ulcers in the duodenum Gave another 1 unit of PRBCs on 11/13 Hgb is stable at 8.1 today, no signs of GI bleeding Received IV Protonix x 4 days then converted to po PPI bid--> will need 2 to 3 months of PPI -discontinued Lovenox from post-op hip after receiving 2 weeks-worth (2) GI bleed: With melena as above and now some red blood on 11/17 upper GI bleed , with elevated BUN and normal creatinine noted that she was on Lovenox BID for DVT prophylaxis at [facility] which is now discontinued Now status post EGD on 11/13 which showed duodenal ulcers as above Continue Protonix PO -now tolerating regular diet -follow Hb, it is 8.1 today, no signs of GI bleeding (3) Peptic ulcer disease: as above (4) Periprosthetic fracture around internal prosthetic left hip joint: suffered fracture at the beginning of October, was admitted 10/25/20 transferred to [facility] on 10/25 and she said she had surgical correction of the fracture on 10/28 was at [facility] for rehab but she said she was not doing much there-is not allowed to bear weight but was doing bed to chair transfers with a Jj lift no pain in left hip at this time consult PT/OT appreciated Dr. Flores discussed her care with the orthopedic team at [facility] on 11/13-okay to remove emmanuel and place Steri-Strips on 11/13. She is to remain nonweightbearing on the left hip and has follow-up planned on 12/12 with orthopedic surgeon On 11/15 had continuous bleeding from distal portion of incision. Wound does not appear dehisced but bleeding from a small area between 2 previous staple sites. -consulted Ortho at [facility], placed wound vac for pressure dressing hopeful that the bleeding will stop if she would require exploration of wound ortho would recommend return to [facility] as they performed the original surgery will continue to check with orthopedics about whether she needs transferred (5) Hyperkalemia: K is 4.6 today -continue Lasix 20 mg po daily and follow BMP (6) Vomiting and diarrhea: now resolved continue ZOfran prn diet as tolerated Diarrhea with C. diff as below which is now much improved (7) Chronic respiratory failure with hypoxia: stable on her 2-3L, but reports some SOB overnight resolved with prn neb- she requests standing order for nebs as she does at home (8) Type 2 diabetes mellitus, with long-term current use of insulin: Glucose controlled to mildly elevated now that eating more -continue to hold home Trulicity, metformin Novolog SS achs Lantus 10 units q AM monitor for hypoglycemia, no episodes, eating well (9) HTN (hypertension): holding anti-hypertensives, BP ranges from normal to slightly high (10) Lab test positive for detection of COVID-19 virus: patient received vaccine back on 10/22 had diarrhea/vomiting after getting vaccine, caused her to pass out and fracture left hip she tested positive for COVID PCR on 10/25, only had GI symptoms, never had pneumonia. Test remains positive now but she is off precautions as it has been over 3 weeks no sick contacts, all of her family has tested negative according to her son Ankit (11) Pressure ulcer: * Pressure ulcer of left medial dorsal foot, POA, unstageable * Pressure ulcer of left medial buttocks POA, stage I * Pressure ulcer of left posterior heel(s) POA, unstageable Pressure ulcer of left lateral ankle, POA, unstageable Pressure ulcer of right lower posterior lateral back, POA, stage I Wound care following, follow wound care recommendations Offload pressure (12) Asymptomatic bacteriuria: UA is contaminated with epithelials Ur cx with GNR is asymptomatic,only 8ooo CFUs no treatment needed although is on keflex now anyway for wound (13) Insomnia: melatonin 6mg not helping - benadryl prn for sleep (14) C. difficile diarrhea: tested positive on 11/14 started po Vanco 125mg qid x 10 day course- last day of tx will be / no further diarrhea now (15) DVT prophylaxis: SCDs only due to bleeding Disposition-continued stay medical/surgical floor, eventually dc to SNF- has been accepted at [facility] DNR/DNI Appreciate palliative care consultation for goals of care discussion Admission and Anticipated Discharge Date Admission Date: November 11, 2020 Subjective patient says she is doing well, no major complaints says her breathing was a little labored this morning when the room was warm, but it got better when they cooled the room no cough, no chest pain, no abdominal symptoms, still has some pain in left hip but not bad reviewed labs, Hb is down very slightly at 8.1, will watch closely Cr and electrolytes are stable she is eating well, says she has a good appetite she is very hopeful that the wound vac will be enough to help with hip incision heal Review of Systems Review of Systems: All systems reviewed & are unremarkable except as noted in Subjective Physical Exam Constitutional: well developed, well nourished, cooperative and + overweight; no acute distress Neck: trachea midline, no thyromegaly Respiratory: normal respiratory effort, lungs clear to auscultation Cardiovascular: RRR, no murmur, no edema Gastrointestinal (Abdomen): normal bowel sounds, soft, nontender, no hepatosplenomegaly Musculoskeletal: Head/Neck/Chest: normocephalic, head atraumatic and neck supple Extremities: + limited ROM of extremities and + abnormal strength (generalized weakness); no cyanosis, no clubbing and no petechiae Skin: no rashes, warm and dry + ulcer (pressure ulcers) and + wound (left hip wound) Neurologic: patellar DTR's 2+ bilat, sensation intact and PERRL, EOMI, accommodation nl, no face palsy, no dysarthria Psychiatric: A+Ox3, euthymic affect Lymphatic: no cervical or axillary lymphadenopathy Results & Data Results & Data ([facility]) Vital Signs (Past 12 Hours) Vital Signs Temp Pulse Resp BP Pulse Ox 11/20/20 12:02 91 H 18 94 11/20/20 07:03 90 19 95 11/20/20 06:51 36.8 C 92 H 16 151/60 H 96 Laboratory Results Laboratory Results - last 24 hr 11/19/20 11/19/20 11/20/20 16:37 20:20 07:46 WBC 5.06 RBC 2.73 L Hgb 8.2 L Hct 26.0 L MCV 95.2 MCH 30.0 MCHC 31.5 L RDW Std Deviation 51.8 H RDW Coeff of Yevgeniy 15.0 H Plt Count 273 MPV 10.2 Sodium Potassium Chloride Carbon Dioxide Anion Gap BUN Creatinine Est Cr Clr Drug Dosing Est GFR ( Amer) Est GFR (Non-Af Amer) BUN/Creatinine Ratio Glucose POC Glucose 185 H 188 H Calcium 11/20/20 11/20/20 11/20/20 07:46 07:55 11:57 WBC RBC Hgb Hct MCV MCH MCHC RDW Std Deviation RDW Coeff of Yevgeniy Plt Count MPV Sodium 138 Potassium 4.6 Chloride 101 Carbon Dioxide 33 H Anion Gap 5.0 BUN 24 H Creatinine 0.66 Est Cr Clr Drug Dosing 88.9 Est GFR ( Amer) 98.8 Est GFR (Non-Af Amer) 85.2 BUN/Creatinine Ratio 35.8 H Glucose 161 H POC Glucose 178 H 163 H Calcium 8.4 L Medications Administered Current Inpatient Medications Albuterol (Albut/Ipratrop 3mg/0.5mg Neb 3 Ml Vial) 3 ml NEB TIDR CRISTINA Stop: 12/18/20 09:59 Last Admin: 11/20/20 12:01 Dose: 3 ml Documented by: Ascorbic Acid (Ascorbic Acid 500 Mg Tab) 500 mg PO DAILY CRISTINA Stop: 12/18/20 08:59 Last Admin: 11/20/20 09:09 Dose: 500 mg Documented by: Cephalexin HCl (Cephalexin 500 Mg Cap) 500 mg PO QID CRISTINA Stop: 11/22/20 17:29 Last Admin: 11/20/20 09:10 Dose: 500 mg Documented by: Dextrose (Dextrose 50% 50 Ml Syringe) 25 - 50 ml IV UD PRN; Protocol PRN Reason: Hypoglycemia Protocol Stop: 12/11/20 09:59 Diphenhydramine HCl (Diphenhydramine Capsule 25 Mg Cap) 25 mg PO HS PRN PRN Reason: insomnia Stop: 12/15/20 14:37 Last Admin: 11/19/20 22:11 Dose: 25 mg Documented by: Fluticasone Furoate (Fluticasone Furoate 100mcg 14 Puffs/Inhaler) [facility] Stop: 12/11/20 10:29 Last Admin: 11/20/20 09:08 Dose: 1 puffs Documented by: Furosemide (Furosemide 20 Mg Tab) 20 mg PO QAM [facility] Stop: 12/18/20 08:59 Last Admin: 11/20/20 09:09 Dose: 20 mg Documented by: Glucagon (Glucagon For Inj 1 Mg Vial) 1 mg IM UD PRN; Protocol PRN Reason: Hypoglycemia Protocol Stop: 12/11/20 09:59 Glucose (Glucose 40% Gel 15 Gm Tube) 15 - 30 gm PO UD PRN; Protocol PRN Reason: Hypoglycemia Protocol Stop: 12/11/20 09:59 Glucose (Glucose 10 Tabs/Tube) 4 - 8 tabs PO UD PRN; Protocol PRN Reason: Hypoglycemia Protocol Stop: 12/11/20 09:59 Insulin Aspart (Insulin Aspart 100 Units/Ml 3 Ml Pen) 0 units SC ACHS [facility] Stop: 12/11/20 09:40 Last Admin: 11/20/20 09:03 Dose: 7 units Documented by: Insulin Glargine (Insulin Glargine Solostar 100 Units/Ml 3 Ml Pen) 10 units [facility] Stop: 12/19/20 08:59 Last Admin: 11/20/20 09:04 Dose: 10 units Documented by: Melatonin (Melatonin 3 Mg Tab) 6 mg PO HS CRISTINA Stop: 12/14/20 20:59 Last Admin: 11/19/20 21:04 Dose: 6 mg Documented by: Miscellaneous (Carbohydrates For Hypoglycemia ) 15 - 30 gm PO UD PRN PRN Reason: Hypoglycemia Treatment Stop: 12/11/20 09:59 Nystatin (Nystatin Cr 15 Gm Tube) 1 appln EXT QS CRISTINA Stop: 11/23/20 23:00 Last Admin: 11/20/20 09:09 Dose: 1 appln Documented by: Nystatin (Nystatin Powder 15gm Btl) 1 appln EXT BID PRN PRN Reason: skin fold rash Stop: 12/15/20 14:37 Ondansetron HCl (Ondansetron Inj 2 Mg/Ml 2 Ml Vial) 4 mg IV Q6H PRN PRN Reason: Nausea Stop: 12/11/20 09:40 Pantoprazole Sodium (Pantoprazole 40 Mg Tab) 40 mg PO BID CRISTINA Stop: 12/16/20 08:59 Last Admin: 11/20/20 09:09 Dose: 40 mg Documented by: Prednisolone Sodium Phosphate (Prednisolone Sod Phos 1% 10 Ml Btl) 1 drops OPL DAILY CRISTINA Stop: 12/11/20 09:40 Last Admin: 11/20/20 09:10 Dose: 1 drops Documented by: Raspberry (Raspberry Syrup 5 Ml Udp) 5 ml PO Q6 CRISTINA Stop: 11/28/20 14:59 Last Admin: 11/20/20 05:44 Dose: 5 ml Documented by: Simvastatin (Simvastatin 40 Mg Tab) 40 mg PO HS CRISTINA Stop: 12/17/20 20:59 Last Admin: 11/19/20 21:02 Dose: 40 mg Documented by: Vancomycin HCl (Vancomycin Hcl 125 Mg/2.5ml Soln) 125 mg PO Q6 CRISTINA Stop: 11/24/20 14:59 Last Admin: 11/20/20 05:44 Dose: 125 mg Documented by: PG Care Time/CCT Total # of Minutes Spent Total Time Spent with Patient: Total time spent is greater than 50% in coordination of care (as documented) at patient's floor/unit and/or counseling patient: Coding Level of Care Code 96293 Subseq Hosp Care Lvl 3 Diagnoses Acute blood loss anemia D62 GI bleed K92.2 Peptic ulcer disease K27.9 Periprosthetic fracture around internal prosthetic left hip joint M97.02XA Encounter type: initial encounter Hyperkalemia E87.5 Vomiting and diarrhea R11.10; R19.7 Chronic respiratory failure with hypoxia J96.11 Type 2 diabetes mellitus, with long-term current use of insulin E11.9; Z79.4 HTN (hypertension) I10 Lab test positive for detection of COVID-19 virus U07.1 Pressure ulcer L89.90 Asymptomatic bacteriuria R82.71 Insomnia G47.00 C. difficile diarrhea A04.72 DVT prophylaxis Z29.9 (1) Periprosthetic fracture around internal prosthetic left hip joint Encounter type: initial encounter Qualified Code(s): M97.02XA - P eriprosthetic fracture around internal prosthetic left hip joint, initial encounter
--- NOTE | 2020-11-20 18:10 | Orthopedic Progress Note ---
Date of Service November 20, 2020 Assessment & Plan (1) Bleeding from wound: HD 1 with wound vac Vac functioning well. Hgb appears to be remaining stable. I spoke to Jessica Montes this AM about vac collection. This AM it was around 250ml. Currently around 300. Appears to be slowing down. Drainage looks to be old hematoma/seroma. Continue Wound VAC. Would benefit to have this on after dc at SNF or Rehab facility. No surgical intervention at this time. Continue po antibx. Would plan follow up with Tom Welch in the next week. Admission and Anticipated Discharge Date Admission Date: November 11, 2020 Subjective Pt sitting up in bed. She is very happy today due to the fact she was able to see her today. No new complaints. Pain controlled. Wound vac applied yesterday. Physical Exam Physical Exam: Wound vac intact and functioning well. Mild erythema in a spot proximal to the vac. No other areas of drainage noted. Thigh soft, NT. NV intact. Wound vac container has about 300cc collected so far. Results & Data ([facility]) Vital Signs (Past 12 Hours) Vital Signs Temp Pulse Resp BP Pulse Ox 11/20/20 14:44 36.9 C 88 16 149/62 H 97 11/20/20 12:02 91 H 18 94 11/20/20 07:03 90 19 95 11/20/20 06:51 36.8 C 92 H 16 151/60 H 96
[2020-11-20] MEDS: MELATONIN 3 MG TAB PO SCH (21:18)
[2020-11-20] MEDS: diphenhydrAMINE Capsule 25 MG CAP PO PRN (21:18)
[2020-11-20] MEDS: SIMVASTATIN 40 MG TAB PO SCH (21:46)
[2020-11-21] MEDS ORDERED: ZOLPIDEM TARTRATE 5 MG TAB PO PRN (01:14)
[2020-11-21] MEDS: VANCOMYCIN HCL 125 MG/2.5ML SOLN PO SCH ×4 (01:19→17:40)
[2020-11-21] MEDS: RASPBERRY SYRUP 5 ML UDP PO SCH ×4 (01:19→17:40)
[2020-11-21] MEDS: NYSTATIN CR 15 GM TUBE EXT SCH ×3 (01:21→17:39)
[2020-11-21] MEDS: ALBUT/IPRATROP 3MG/0.5MG NEB 3 ML VIAL NEB SCH ×3 (06:01→19:45)
[2020-11-21] MEDS: FLUTICASONE FUROATE 100MCG 14 PUFFS/INHALER INH SCH (08:25)
[2020-11-21] MEDS: prednisoLONE sod phos 1% 10 ML BTL OPL SCH (08:25)
[2020-11-21] MEDS: PANTOprazole 40 MG TAB PO SCH ×2 (08:27→20:29)
[2020-11-21] MEDS: ASCORBIC ACID 500 MG TAB PO SCH (08:27)
[2020-11-21] MEDS: FUROSEMIDE 20 MG TAB PO SCH (08:27)
[2020-11-21] MEDS: INSULIN GLARGINE SOLOSTAR 100 UNITS/ML 3 ML PEN SC SCH (08:28)
[2020-11-21] MEDS: cephALEXin 500 MG CAP PO SCH ×4 (08:28→20:29)
[2020-11-21] MEDS: INSULIN ASPART 100 UNITS/ML 3 ML PEN SC SCH ×4 (08:29→21:25)
[2020-11-21] MEDS ORDERED: LORazepam 0.5 MG TAB PO PRN (11:08)
--- NOTE | 2020-11-21 11:14 | Hospitalist Progress Note ---
Date of Service November 21, 2020 Assessment & Plan (1) Acute blood loss anemia: Presented with Hb of 4.4 and low normal blood pressure after having melena, one BP reading in 70's systolic upon arrival last known hemoglobin at the beginning of the month was 10.5 when she was admitted for periprosthetic hip fracture on the left and then was around 7.5 when she was discharged from [facility] on 11/04 patient with several days of diarrhea, and then noted to have melena by staff at [facility] the day of admission Found here to be C. diff positive some intermittent abdominal pain, vomited once but not coffee ground emesis--> now resolved Initially given 3 units PRBCs, hemoglobin was stable at 8.5, coags normal. GI and anesthesia canceled the EGD on Thursday for possible comorbidities, but patient not agreeable to transfer to tertiary care Patient continued to have burgundy colored stools and hemoglobin dropped to 7.5 and was mildly hypotensive on the morning of 11/13 Patient was then agreeable to EGD after Palliative discussion with her and family. Anesthesia consultation and GI consultation appreciated EGD on 11/13 showed 2 no longer actively bleeding ulcers in the duodenum Gave another 1 unit of PRBCs on 11/13 Hgb is stable at 8.9 today, no signs of GI bleeding Received IV Protonix x 4 days then converted to po PPI bid--> will need 2 to 3 months of PPI -discontinued Lovenox from post-op hip after receiving 2 weeks-worth (2) GI bleed: With melena as above and now some red blood on 11/17 upper GI bleed , with elevated BUN and normal creatinine noted that she was on Lovenox BID for DVT prophylaxis at [facility] which is now discontinued Now status post EGD on 11/13 which showed duodenal ulcers as above Continue Protonix PO -now tolerating regular diet -follow Hb, it is 8.9 today, no signs of GI bleeding (3) Peptic ulcer disease: as above (4) Periprosthetic fracture around internal prosthetic left hip joint: suffered fracture at the beginning of October, was admitted 10/25/20 transferred to [place] [facility] on 10/25 and she said she had surgical correction of the fracture on 10/28 was at [facility] for rehab but she said she was not doing much there-is not allowed to bear weight but was doing bed to chair transfers with a Jj lift no pain in left hip at this time consult PT/OT appreciated Dr. Flores discussed her care with the orthopedic team at [facility] on 11/13-okay to remove emmanuel and place Steri-Strips on 11/13. She is to remain nonweightbearing on the left hip and has follow-up planned on 12/12 with orthopedic surgeon On 11/15 had continuous bleeding from distal portion of incision. Wound does not appear dehisced but bleeding from a small area between 2 previous staple sites. -consulted Ortho at [facility], placed wound vac for pressure dressing hopeful that the bleeding will stop unfortunately the wound is looking worse today, new area appears to be dehisced deep culture taken by wound RN d/w orthopedics, they recommend transfer to [place] for their orthopedic team to manage wound, might need irrigated will arrange for transfer tomorrow morning (5) Hyperkalemia: K is 4.6 on 11/20 -continue Lasix 20 mg po daily and follow BMP (6) Vomiting and diarrhea: now resolved continue ZOfran prn diet as tolerated Diarrhea with C. diff as below which is now much improved, practically resolved (7) Chronic respiratory failure with hypoxia: stable on her 2-3L, but reports some SOB overnight resolved with prn neb- she requests standing order for nebs as she does at home (8) Type 2 diabetes mellitus, with long-term current use of insulin: Glucose controlled to mildly elevated now that eating more -continue to hold home Trulicity, metformin Novolog SS achs Lantus 10 units q AM monitor for hypoglycemia, no episodes, eating well (9) HTN (hypertension): holding anti-hypertensives, BP is normal (10) Lab test positive for detection of COVID-19 virus: patient received vaccine back on 10/22 had diarrhea/vomiting after getting vaccine, caused her to pass out and fracture left hip she tested positive for COVID PCR on 10/25, only had GI symptoms, never had pneumonia. Test remains positive now but she is off precautions as it has been over 3 weeks no sick contacts, all of her family has tested negative according to her son Ankit (11) Pressure ulcer: * Pressure ulcer of left medial dorsal foot, POA, unstageable * Pressure ulcer of left medial buttocks POA, stage I * Pressure ulcer of left posterior heel(s) POA, unstageable Pressure ulcer of left lateral ankle, POA, unstageable Pressure ulcer of right lower posterior lateral back, POA, stage I Wound care following, follow wound care recommendations Offload pressure (12) Asymptomatic bacteriuria: UA is contaminated with epithelials Ur cx with GNR is asymptomatic,only 8ooo CFUs no treatment needed although is on keflex now anyway for wound (13) Insomnia: melatonin 6mg not helping - benadryl prn for sleep (14) C. difficile diarrhea: tested positive on 11/14 started po Vanco 125mg qid x 10 day course- last day of tx will be 11/24 no further diarrhea now (15) DVT prophylaxis: SCDs only due to bleeding Disposition-continued stay medical/surgical floor, plan to transfer to [place] tomorrow DNR/DNI Appreciate palliative care consultation for goals of care discussion Admission and Anticipated Discharge Date Admission Date: November 11, 2020 Subjective patient is doing okay, no sever pain in her hip, she wants to straighten out her legs but lacks the strength she says her breathing feels a little labored while resting, she turns oxygen up to 3L when she gets like this at home no chest pain, no cough, no fever/chills no diarrhea, no melena the wound vac is in place, draining serosanguinous fluid d/w wound care, the type of wound vac she has cannot be done outpatient, which would make discharge to [facility] difficult ortho will come up to assess the wound today, they would like her to follow up with ortho at [place] next week difficult situation if the wound vac cannot be done at SNF patient is happy because she got to visit with her yesterday, he is coming to see her again today at 2pm she says she is having trouble sleeping, the Melatonin and Ambien not working, will try some Ativan tonight Review of Systems Review of Systems: All systems reviewed & are unremarkable except as noted in Subjective Physical Exam Constitutional: well developed, well nourished, cooperative and + overweight; no acute distress Neck: trachea midline, no thyromegaly Respiratory: normal respiratory effort, lungs clear to auscultation Cardiovascular: RRR, no murmur, no edema Gastrointestinal (Abdomen): normal bowel sounds, soft, nontender, no hepatosplenomegaly Musculoskeletal: Head/Neck/Chest: normocephalic, head atraumatic and neck supple Extremities: + limited ROM of extremities and + abnormal strength (generalized weakness); no cyanosis, no clubbing and no petechiae Skin: no rashes, warm and dry + ulcer (pressure ulcers) and + wound (left hip wound) Neurologic: patellar DTR's 2+ bilat, sensation intact and PERRL, EOMI, accommodation nl, no face palsy, no dysarthria Psychiatric: A+Ox3, euthymic affect Lymphatic: no cervical or axillary lymphadenopathy Results & Data Results & Data ([facility]) Vital Signs (Past 12 Hours) Vital Signs Temp Pulse Resp BP BP Pulse Ox 11/21/20 07:40 36.8 C 88 16 151/65 H 95 11/21/20 06:02 90 22 94 11/20/20 23:11 36.7 C 85 17 111/60 96 Laboratory Results Laboratory Results - last 24 hr 11/18/20 11/20/20 11/20/20 09:52 11:57 16:45 POC Glucose 163 H 158 H Crossmatch See Detail 11/20/20 11/21/20 21:07 08:29 POC Glucose 182 H 176 H Crossmatch Medications Administered Current Inpatient Medications Albuterol (Albut/Ipratrop 3mg/0.5mg Neb 3 Ml Vial) 3 ml NEB TIDR [facility] Stop: 12/18/20 09:59 Last Admin: 11/21/20 06:01 Dose: 3 ml Documented by: Ascorbic Acid (Ascorbic Acid 500 Mg Tab) 500 mg PO DAILY [facility] Stop: 12/18/20 08:59 Last Admin: 11/21/20 08:27 Dose: 500 mg Documented by: Cephalexin HCl (Cephalexin 500 Mg Cap) 500 mg PO QID [facility] Stop: 11/22/20 17:29 Last Admin: 11/21/20 08:28 Dose: 500 mg Documented by: Dextrose (Dextrose 50% 50 Ml Syringe) 25 - 50 ml IV UD PRN; Protocol PRN Reason: Hypoglycemia Protocol Stop: 12/11/20 09:59 Diphenhydramine HCl (Diphenhydramine Capsule 25 Mg Cap) 25 mg PO HS PRN PRN Reason: insomnia Stop: 12/15/20 14:37 Last Admin: 11/20/20 21:18 Dose: 25 mg Documented by: Fluticasone Furoate (Fluticasone Furoate 100mcg 14 Puffs/Inhaler) 1 puffs INH QAM [facility] Stop: 12/11/20 10:29 Last Admin: 11/21/20 08:25 Dose: 1 puffs Documented by: Furosemide (Furosemide 20 Mg Tab) 20 mg PO QAM [facility] Stop: 12/18/20 08:59 Last Admin: 11/21/20 08:27 Dose: 20 mg Documented by: Glucagon (Glucagon For Inj 1 Mg Vial) 1 mg IM UD PRN; Protocol PRN Reason: Hypoglycemia Protocol Stop: 12/11/20 09:59 Glucose (Glucose 40% Gel 15 Gm Tube) 15 - 30 gm PO UD PRN; Protocol PRN Reason: Hypoglycemia Protocol Stop: 12/11/20 09:59 Glucose (Glucose 10 Tabs/Tube) 4 - 8 tabs PO UD PRN; Protocol PRN Reason: Hypoglycemia Protocol Stop: 12/11/20 09:59 Insulin Aspart (Insulin Aspart 100 Units/Ml 3 Ml Pen) 0 units SC ACHS [facility] Stop: 12/11/20 09:40 Last Admin: 11/21/20 08:29 Dose: 6 units Documented by: Insulin Glargine (Insulin Glargine Solostar 100 Units/Ml 3 Ml Pen) [facility] Stop: 12/19/20 08:59 Last Admin: 11/21/20 08:28 Dose: 10 units Documented by: Lorazepam (Lorazepam 0.5 Mg Tab) 0.5 mg PO HS PRN PRN Reason: Insomnia Stop: 12/21/20 11:07 Melatonin (Melatonin 3 Mg Tab) 6 mg PO HS [facility] Stop: 12/14/20 20:59 Last Admin: 11/20/20 21:18 Dose: 6 mg Documented by: Miscellaneous (Carbohydrates For Hypoglycemia ) 15 - 30 gm PO UD PRN PRN Reason: Hypoglycemia Treatment Stop: 12/11/20 09:59 Nystatin (Nystatin Cr 15 Gm Tube) 1 appln EXT QS [facility] Stop: 11/23/20 23:00 Last Admin: 11/21/20 08:26 Dose: 1 appln Documented by: Nystatin (Nystatin Powder 15gm Btl) 1 appln EXT BID PRN PRN Reason: skin fold rash Stop: 12/15/20 14:37 Ondansetron HCl (Ondansetron Inj 2 Mg/Ml 2 Ml Vial) 4 mg IV Q6H PRN PRN Reason: Nausea Stop: 12/11/20 09:40 Pantoprazole Sodium (Pantoprazole 40 Mg Tab) 40 mg PO BID [facility] Stop: 12/16/20 08:59 Last Admin: 11/21/20 08:27 Dose: 40 mg Documented by: Prednisolone Sodium Phosphate (Prednisolone Sod Phos 1% 10 Ml Btl) 1 drops OPL DAILY [facility] Stop: 12/11/20 09:40 Last Admin: 11/21/20 08:25 Dose: 1 drops Documented by: Raspberry (Raspberry Syrup 5 Ml Udp) 5 ml PO Q6 [facility] Stop: 11/28/20 14:59 Last Admin: 11/21/20 05:46 Dose: 5 ml Documented by: Simvastatin (Simvastatin 40 Mg Tab) 40 mg PO HS [facility] Stop: 12/17/20 20:59 Last Admin: 11/20/20 21:46 Dose: 40 mg Documented by: Vancomycin HCl (Vancomycin Hcl 125 Mg/2.5ml Soln) 125 mg PO Q6 [facility] Stop: 11/24/20 14:59 Last Admin: 11/21/20 05:46 Dose: 125 mg Documented by: PG Care Time/CCT Total # of Minutes Spent Total Time Spent with Patient: Total time spent is greater than 50% in coordinat ion of care (as documented) at patient's floor/unit and/or counseling patient: Coding Level of Care Code 35056 Subseq Hosp Care Lvl 3 Diagnoses Acute blood loss anemia D62 GI bleed K92.2 Peptic ulcer disease K27.9 Periprosthetic fracture around internal prosthetic left hip joint M97.02XA Encounter type: initial encounter Hyperkalemia E87.5 Vomiting and diarrhea R11.10; R19.7 Chronic respiratory failure with hypoxia J96.11 Type 2 diabetes mellitus, with long-term current use of insulin E11.9; Z79.4 HTN (hypertension) I10 Lab test positive for detection of COVID-19 virus U07.1 Pressure ulcer L89.90 Asymptomatic bacteriuria R82.71 Insomnia G47.00 C. difficile diarrhea A04.72 DVT prophylaxis Z29.9 (1) Periprosthetic fracture around internal prosthetic left hip joint Encounter type: initial encounter Qualified Code(s): M97.02XA - Periprosthetic fracture around internal prosthetic left hip joint, initial encounter
[2020-11-21 11:34] LABS: Hematocrit (blood only) 28.4 % (37-47); Hemoglobin 8.9 g/dL (12.0-16.0)
--- NOTE | 2020-11-21 12:25 | Orthopedic Progress Note ---
Date of Service November 21, 2020 Assessment & Plan (1) Bleeding from wound: HD 1 with wound vac Wound VAC removed. Drainage appears more purulent to me with a thicker consistency and brighter red color. I spoken to the patient and felt that this is something that needs to be taken care of back at [facility] where she had the initial surgery. With the possibility of a wound infection versus complete hardware infection deeper, she would need a fairly large procedure which would be better for her to have it done there. I think although the patient is upset that she has to go back to [facility], she understands. I have spoken to Dr. Mak Gonzales about the current situation and he is planning to get in touch with [facility] to plan for transfer. She is currently on p.o. Keflex. Switch to IV antibiotic as per medicine choice prior to transfer. Depending on how soon she is able to go to [facility], we can follow her cultures and adjust from there. Admission and Anticipated Discharge Date Admission Date: November 11, 2020 Subjective Wound care team removing the VAC today to change it out. They asked me to come at the bedside to view the wound. Patient is lying in bed and is without complaints at this time. No overt pain. Denies shortness of breath, chest pain, lightheadedness, chills, fevers. Physical Exam Physical Exam: The wound VAC has been peeled off the thigh. She is starting to have an increase in spotty erythema around the thigh itself. More so than when I saw it yesterday. When the VAC was removed, wound care nurse stated that she had a copious amount of drainage from it at that time. Apparently a clot had formed and was blocking the exit. However the drainage has changed and is a bit brighter in color but also appears more purulent to me. Pressing on the thigh to try and express more drainage does not cause her pain. I am able to express more drainage that appears the same. She also has a small area proximal to the main opening that is about a centimeter long that appears to have opened. It has a bit of the same drainage. There is an area just distal to this larger section that has a little bit of purulent crusting to it. Is been decided not to put the wound VAC back on. Wound care team did a deep wound culture through the main opening. Plans were to put another collection type dressing on to limit the patient's turning for dressing changes. Results & Data ([facility]) Vital Signs (Past 12 Hours) Vital Signs Temp Pulse Resp BP Pulse Ox 11/21/20 07:40 36.8 C 88 16 151/65 H 95 11/21/20 06:02 90 22 94
[2020-11-21] MEDS: MELATONIN 3 MG TAB PO SCH (20:28)
[2020-11-21] MEDS: SIMVASTATIN 40 MG TAB PO SCH (20:29)
[2020-11-22] MEDS: NYSTATIN CR 15 GM TUBE EXT SCH ×2 (00:29→08:26)
[2020-11-22] MEDS: VANCOMYCIN HCL 125 MG/2.5ML SOLN PO SCH ×3 (00:29→12:05)
[2020-11-22] MEDS: RASPBERRY SYRUP 5 ML UDP PO SCH ×3 (00:29→12:06)
[2020-11-22] MEDS: ALBUT/IPRATROP 3MG/0.5MG NEB 3 ML VIAL NEB SCH ×2 (07:30→13:30)
[2020-11-22] MEDS: FLUTICASONE FUROATE 100MCG 14 PUFFS/INHALER INH SCH (08:25)
[2020-11-22] MEDS: PANTOprazole 40 MG TAB PO SCH (08:26)
[2020-11-22] MEDS: prednisoLONE sod phos 1% 10 ML BTL OPL SCH (08:26)
[2020-11-22] MEDS: cephALEXin 500 MG CAP PO SCH ×2 (08:26→12:06)
[2020-11-22] MEDS: INSULIN ASPART 100 UNITS/ML 3 ML PEN SC SCH ×2 (09:28→12:33)
[2020-11-22] MEDS: INSULIN GLARGINE SOLOSTAR 100 UNITS/ML 3 ML PEN SC SCH (09:30)
[2020-11-22] MEDS: FUROSEMIDE 20 MG TAB PO SCH (10:13)
[2020-11-22] MEDS: ASCORBIC ACID 500 MG TAB PO SCH (10:13)
--- NOTE | 2020-11-22 11:01 | Discharge Summary ---
Date of Service November 22, 2020 Admission HPI Per Admitting Provider 75 yo female with history of chronic hypoxic respiratory failure, pacemaker for AV node block, recent syncope and collapse at the beginning of October with left hip periprosthetic fracture, transferred to [facility] from [facility] for extensive surgical correction. She was at [place] for nine days, discharged on 11/04 to [facility]. At that time her hemoglobin was 9.6, her Cr was normal at 1.0, she was breathing well on her baseline 2-3L NC. Per orthopedics instructions, she cannot bear any weight on the left leg for 6 weeks so she could not even get therapy, she would sit in a chair but that was all. She has been very frustrated because she has been having diarrhea and urinating in her bed, she will ring her hodgson, no help for 20-30 minutes and she has to lay in her urine and stool. She has had intermittent epigastric pain but nothing severe. It was noted that over the past 24hours her diarrhea appeared more like melena. Rectal exam showed black and maroon stool. She admits to feeling light headed, no chest pain, no dyspnea, no cough. She tested positive for COVID back on 10/25/20 despite not sick contacts and no symptoms of COVID. She got her first COVID vaccine back on 10/22/20 and started with diarrhea afterwards which lead to her having hypovolemia, passing out and fracturing her left hip. In the ED she was borderline hypotensive but most pressures were 90-110 systolic, she was mentating well, making urine and a paez was placed. Hemoglobin noted to be 4.4 and she was typed and crossed for 2 units. K was 6.3, ordered calcium, insulin and dextrose. Discussed with Dr. Bragg, GI sound controller, he will see her later today. Will restore her volume, will check a COVID since she will need EGD. Principal Diagnosis GI bleeding from C diff colitis, acute blood loss anemia Discharge Exam Constitutional well developed, well nourished, cooperative and + overweight; no acute distress Eyes normal visual nielson by confrontation, PERRL and EOM intact bilaterally ENMT external ear and nose normal, oropharynx normal Neck trachea midline, no thyromegaly Respiratory normal respiratory effort, lungs clear to auscultation Cardiovascular RRR, no murmur, no edema Gastrointestinal (Abdomen) normal bowel sounds, soft, nontender, no hepatosplenomegaly Musculoskeletal Head/Neck/Chest: normocephalic, head atraumatic and neck supple Extremities: + limited ROM of extremities and + abnormal strength (generalized weakness); no cyanosis, no clubbing and no petechiae Skin no rashes, warm and dry + ulcer (pressure ulcers) and + wound (left hip wound with dehiscence, draining serosanguinous fluid) Neurologic patellar DTR's 2+ bilat, sensation intact and PERRL, EOMI, accommodation nl, no face palsy, no dysarthria Psychiatric A+Ox3, euthymic affect Lymphatic no cervical or axillary lymphadenopathy Discharge Data Allergies Allergy/AdvReac Type Severity Reaction Status Date / Time No Known Allergies Allergy Verified 11/11/20 07:25 Consultations 11/11/20 07:38 ED Decision to Admit Stat 11/11/20 12:35 Consult Case Management - Discharge Planning Routine 11/11/20 14:00 Consult Gastroenterology Routine 11/11/20 19:30 Consult Palliative Care Routine 11/13/20 07:18 Consult Anesthesiology Routine Consult Gastroenterology Routine 11/13/20 15:25 Consult Case Management - Discharge Planning Routine 11/15/20 13:49 Consult Orthopedic Surgery Routine 11/22/20 10:27 Burn CD for patient Routine Procedures Performed Operation Date: 11/12/20 16:30 <No data on this case meets the specified criteria> Operation Date: 11/13/20 16:30 Actual Procedures p Esophagogastroduodenoscopy - Esteban G. Case, DO Hospital Course (1) Acute blood loss anemia: Presented with Hb of 4.4 and low normal blood pressure after having melena she was on Lovenox at the time of admission for DVT prophylaxis from hip surgery in the beginning of October patient with several days of diarrhea, and then noted to have melena by staff at [facility] the day of admission Found here to be C. diff positive Initially given 3 units PRBCs, hemoglobin was stable at 8.5, coags normal. EGD on 11/13 showed 2 non bleeding ulcers in the duodenum received a 4th unit of PRBCs on 11/13 Hgb has been stable for the past week, 8.9 on 11/21/20, no signs of GI bleeding Received IV Protonix x 4 days then converted to po PPI bid--> will need 2 to 3 months of PPI (2) GI bleed: With melena and then some red blood on 11/17 suspected upper GI bleed , with elevated BUN and normal creatinine noted that she was on Lovenox BID for DVT prophylaxis at [facility] which was discontinued on admission Now status post EGD on 11/13 which showed duodenal ulcers as above Continue Protonix PO for 2-3 months treated C diff colitis with Vancomycin PO -now tolerating regular diet with soft bowel movements -follow Hb, it is 8.9 on 11/21/20, no signs of GI bleeding for over a week (3) C. difficile diarrhea: tested positive on 11/14 started po Vanco 125mg qid x 10 day course- last day of tx will be 11/24 no further diarrhea for almost a week eating well, stools formed (4) Peptic ulcer disease: as above (5) Periprosthetic fracture around internal prosthetic left hip joint: suffered fracture at the beginning of October, was admitted 10/25/20 transferred to [place] orth[facility]ics on 10/25 and she said she had surgical correction of the fracture on 10/28 was at [facility] for rehab but she said she was not doing much there-is not allowed to bear weight but was doing bed to chair transfers with a Jj lift no pain in left hip at this time consult PT/OT appreciated Dr. Flores discussed her care with the orthopedic team at [facility] on 11/13-okay to remove emmanuel and place Steri-Strips on 11/13. She is to remain nonweightbearing on the left hip and has follow-up planned on 12/12 with orthopedic surgeon On 11/15 had continuous bleeding from distal portion of incision and slight dehiscence Ortho here at [facility] recommended wound vac to apply pressure, stop bleeding unfortunately the wound is looking worse on 11/21, new area appears to be dehisced deep culture taken by wound RN d/w orthopedics, they recommend transfer to [place] for their orthopedic team to manage wound, might need irrigated arranged transfer to [place] today (6) Hyperkalemia: K is 4.6 on 11/20 -continue Lasix 20 mg po daily and follow BMP (7) Vomiting and diarrhea: now resolved continue ZOfran prn diet as tolerated Diarrhea with C. diff as below which is now much improved, practically resolved (8) Chronic respiratory failure with hypoxia: stable on her 2-3L, but reports some SOB overnight resolved with prn neb- she requests standing order for nebs as she does at home (9) Type 2 diabetes mellitus, with long-term current use of insulin: Glucose controlled to mildly elevated now that eating more -continue to hold home Trulicity, metformin Novolog SS achs Lantus 10 units q AM monitor for hypoglycemia, no episodes, eating well (10) HTN (hypertension): holding anti-hypertensives, BP is normal (11) Lab test positive for detection of COVID-19 virus: patient received vaccine back on 10/22 had diarrhea/vomiting after getting vaccine, caused her to pass out and fracture left hip she tested positive for COVID PCR on 10/25, only had GI symptoms, never had pneumonia. Test remains positive now but she is off precautions as it has been over 3 weeks no sick contacts, all of her family has tested negative according to her son Ankit (12) Pressure ulcer: * Pressure ulcer of left medial dorsal foot, POA, unstageable * Pressure ulcer of left medial buttocks POA, stage I * Pressure ulcer of left posterior heel(s) POA, unstageable Pressure ulcer of left lateral ankle, POA, unstageable Pressure ulcer of right lower posterior lateral back, POA, stage I Wound care following, follow wound care recommendations Offload pressure (13) Insomnia: melatonin 6mg not helping can try Ativan 0.5mg PO PRN (14) DVT prophylaxis: SCDs only due to bleeding Disposition- transfer to [facility] DNR/DNI Total Time Total Time Spent Total Time Spent (In Minutes): 35 minutes Total Time Includes: Examination of the Patient, Discharge Planning, Medication Reconciliation, Communication With Other Providers (phone call to [facility] to arrange transfer) and Other (updated patient's son Ankit over the phone) Discharge Plan Discharge Items Reason For Visit: ACUTE GI BLEED, BLOOD LOSS ANEMIA Follow-up/Referrals: Jean Beach MD [Primary Care Provider] - Stand-Alone Forms: My [facility] [employer] Medications and DC Order Prescriptions: No Action (DME) OneTouch Ultra Blue Test Strip Strip See Dose Instructions .ROUTE .MEDSUPPLY Qty: 100 RF: 3 (DME) pen needle, diabetic [BD Ultra-Fine Short Pen Needle] 31 gauge x 5/16" needle See Rx Instructions .ROUTE .MEDSUPPLY Qty: 500 RF: 3 (DME) Allergy Syringe 1 mL 27 x 1/2" syringe See Rx Instructions .ROUTE .MEDSUPPLY Qty: 1 RF: 0 simvastatin 40 mg tablet 40 mg PO HS Qty: 90 RF: 3 (DME) Dexcom G6 Coning Machine Operator misc See Dose Instructions .ROUTE .MEDSUPPLY Qty: 1 RF: 0 (DME) Dexcom G6 Transmitter device See Dose Instructions .ROUTE .MEDSUPPLY Qty: 1 RF: 3 (DME) Dexcom G6 Sensor device See Dose Instructions .ROUTE .MEDSUPPLY Qty: 3 RF: 11 ascorbic acid (vitamin C) 500 mg Tablet 500 mg PO DAILY RF: 0 Asmanex Twisthaler 220 mcg/ actuation (120) Aerosol Powdr Breath Activated 1 inh INHALATION AMHS RF: 0 metformin 1,000 mg tablet 1,000 mg PO BID RF: 0 telmisartan 40 mg Tablet 40 mg PO DAILY RF: 0 Nucala 100 mg/mL Syringe 100 mg SUBCUT .EVERY 28 DAYS RF: 0 nystatin 100,000 unit/gram Cream 1 applic TOPICAL QS RF: 0 enoxaparin 60 mg/0.6 mL Syringe 60 mg SUBCUT Q12H RF: 0 Lantus Solostar U-100 Insulin 100 unit/mL (3 mL) insulin pen 40 unit SUBCUT DAILY RF: 0 oxycodone 5 mg Tablet 10 mg PO Q6 PRN (Reason: Severe Pain (Scale Score 7-10)) RF: 0 oxycodone 5 mg Tablet 5 mg PO Q6 PRN (Reason: Moderate Pain (Scale Score 5-6)) RF: 0 albuterol sulfate [Ventolin HFA] 90 mcg/actuation HFA aerosol inhaler 1 puff INHALATION Q4H PRN (Reason: Shortness Of Breath Or Wheezing) RF: 0 polyethylene glycol 3350 [Miralax] 17 gram/dose powder 17 g PO DAILY RF: 0 prednisolone sodium phosphate 1 % Drops 1 drp OPL DAILY RF: 0 PNV cmb#95-ferrous fumarate-FA [] 28 mg iron- 800 mcg Tablet 1 tab PO DAILY RF: 0 Trulicity 0.75 mg/0.5 mL Pen Injector 0.75 mg SUBCUT .DAILY EVERY 7 DAYS RF: 0 acetaminophen [Tylenol] 325 mg Tablet 975 mg PO Q8 RF: 0 Calmoseptine 0.44-20.6 % Ointment 1 applic TOPICAL QS RF: 0 Admission Data Admit Date/Time: 11/11/20 07:46 Attending Provider: Mak Gonzales Admit Provider: Mak Gonzales Primary Care Provider: Jean Beach Other Providers: Esteban Killian ; [facility] ; [facility] ; [facility], ; Mak Gonzales ; Ivy Yousif ; Sumit Francisco ; Gary Laboy ; Aba Bragg Other Interventions: Discharge Summary Assessment (RN) Last Done: 11/13/20 12:43 Coding Level of Care Code D/C Day Management >30 mins Diagnoses Acute blood loss anemia D62 GI bleed K92.2 C. difficile diarrhea A04.72 Peptic ulcer disease K27.9 Periprosthetic fracture around internal prosthetic left hip joint M97.02XA Encounter type: initial encounter Hyperkalemia E87.5 Vomiting and diarrhea R11.10; R19.7 Chronic respiratory failure with hypoxia J96.11 Type 2 diabetes mellitus, with long-term current use of insulin E11.9; Z79.4 HTN (hypertension) I10 Lab test positive for detection of COVID-19 virus U07.1 Pressure ulcer L89.90 Insomnia G47.00 DVT prophylaxis Z29.9
== END 2020-11-22 17:11 | disposition short-term general hospital (02) | DRG 371 ==
LOC: ED 05:56 → SUATTDRO 07:46 → 2E 07:46 → 2W 11-17 12:55 → 3N 11-20 05:25

== ENCOUNTER 2022-07-21 02:10 | Inpatient (IN) ==
[2022-07-21 03:26] LABS: Albumin Level 3.2 gm/dl (3.4-5.0); BUN Creatinine Ratio 28.6 (10-20); Bilirubin Direct 0.1 mg/dl (0-0.2); Bilirubin,Total 0.5 mg/dl (0.2-1.0); Calcium 8.8 mg/dl (8.5-10.1); Creatinine Clr Calc Pharmacy 49.5 ml/min; Est GFR (African American) 54.5 ml/min; Magnesium 1.1 mg/dl (1.7-2.4); Potassium 5.7 mmol/L (3.5-5.1); Total Protein 6.6 gm/dl (6.0-8.3)
[2022-07-21 03:28] LABS: Troponin I High Sensitivity 25.7 pg/ml (0-14)
[2022-07-21 03:30] LABS: Basophils # (auto) 0.06 K/uL (0-0.2); Basophils % (auto) 0.4 %; Eosinophils # (auto) 0.04 K/uL (0-0.50); Eosinophils % (auto) 0.3 %; Hematocrit (blood only) 33.4 % (34.1-44.9); Hemoglobin 10.4 g/dl (12.0-16.0); Immature Granulocytes # (auto) 0.81 K/uL (0.00-0.02); Lymphocytes # (auto) 1.35 K/uL (1.2-3.4); Mean Corpuscular Hemoglobin 28.3 pg (25.0-34.0); Mean Corpuscular Hgb Conc 31.1 g/dL (32.0-36.0); Mean Platelet Volume 12.3 fL (9.4-12.3); Monocytes # (auto) 1.07 K/uL (0.24-0.82); Neutrophils # (auto) 10.12 K/uL (1.4-6.5); Neutrophils % (auto) 75.3 %; Platelet Count 353 K/uL (130-400); RBC Morphology Unremarkable; RDW Coefficient of Variation 14.4 % (11.5-14.5); RDW Standard Deviation 48.2 fL (36.4-46.3); Red Blood Count 3.67 M/uL (3.93-5.22); White Blood Count 13.45 K/ul (4.8-10.8)
--- NOTE | 2022-07-21 03:44 | Emergency Department Note ---
History of Present Illness General Chief complaint: Cough Stated complaint: COUGH Time Seen by Provider: 07/21/22 03:06 Home Medications Medication Instructions Recorded Confirmed Type calcium carbonate 600 mg calcium 600 mg PO BID 04/18/21 07/21/22 History (1,500 mg) tablet (Calcium) cholecalciferol (vitamin D3) 50 2,000 unit PO DAILY 04/18/21 07/21/22 History mcg (2,000 unit) capsule cyanocobalamin (vitamin B-12) 1,000 mcg PO DAILY 04/18/21 07/21/22 History 1,000 mcg capsule insulin aspart U-100 100 unit/mL 2 - 3 unit subcut UD 04/18/21 07/21/22 History (3 mL) subcutaneous pen (Novolog Flexpen U-100 Insulin aspart) multivitamin 1 tab PO DAILY 04/18/21 07/21/22 History umeclidinium 62.5 mcg/actuation 62.5 mcg inhalation DAILY #90 ea 09/04/21 07/21/22 Rx blister powder for inhalation albuterol sulfate 90 mcg/actuation 2 puff inhalation Q4H PRN 10/04/21 07/21/22 Rx aerosol inhaler (Ventolin HFA) Shortness Of Breath Or Wheezing #3 Inhalers acetaminophen 500 mg tablet 1,000 mg PO DIRECTED PRN 11/06/21 07/21/22 History headache ascorbic acid (vitamin C) 500 mg 1 g PO DAILY 11/06/21 07/21/22 History tablet ferrous sulfate 325 mg (65 mg 325 mg PO DAILY 11/06/21 07/21/22 History iron) tablet zoledronic acid 5 mg/100 mL in 1 ea IV YEARLY 12/17/21 07/21/22 History mannitol 5 %-water intravenous piggybck (Reclast) amoxicillin 500 mg tablet 500 mg PO BID #30 tabs 12/23/21 07/21/22 Rx insulin glargine 100 unit/mL (3 10 unit subcut HS 01/20/22 07/21/22 History mL) subcutaneous pen (Lantus Solostar U-100 Insulin) simvastatin 40 mg tablet 40 mg PO HS #90 tabs 02/24/22 07/21/22 Rx lancets 33 gauge (OneTouch Delica #200 ea 03/10/22 07/17/22 Rx Lancets) fluticasone 250 mcg-salmeterol 50 1 inh inhalation BID #60 ea 06/09/22 07/21/22 Rx mcg/dose blistr powdr for inhalation (Advair Diskus) brimonidine 0.1 % eye drops 1 drp ophthalmic (eye) BID 06/16/22 07/21/22 History (Alphagan P) latanoprost 0.005 % eye drops 1 drp OPR HS 06/16/22 07/21/22 History (Xalatan) timolol maleate 0.5 % eye drops 1 drp ophthalmic (eye) BID 06/16/22 07/21/22 History warfarin 5 mg tablet See Rx Instructions PO UD 07/17/22 07/21/22 History metformin 1,000 mg tablet 1,000 mg PO DAILY 07/21/22 07/21/22 History pantoprazole 40 mg tablet,delayed 40 mg PO DAILY 07/21/22 07/21/22 History release ropinirole 0.5 mg tablet 1.5 mg PO HS 07/21/22 07/21/22 History vit C 250 mg-vit E 90 mg-zinc 40 1 tab PO DAILY 07/21/22 07/21/22 History mg-copper 1 eg-xbsdro-daxofe capsule (PreserVision AREDS-2) Allergies Allergy/AdvReac Type Severity Reaction Status Date / Time No Known Allergies Allergy Verified 07/21/22 02:40 Past Med/Surg History Medical History Acute GI bleeding Acute hyperkalemia Asthma Carpal tunnel syndrome on right Diabetic peripheral neuropathy associated with type 2 diabetes mellitus Dyslipidemia Esophageal reflux Femur fracture, left First degree atrioventricular block History of rib fracture HTN (hypertension) Hx of fracture of femur Insomnia Iron deficiency anemia secondary to inadequate dietary iron intake Lab test positive for detection of COVID-19 virus Mediastinal adenopathy Multiple pulmonary nodules Obesity, morbid, BMI 40.0-49.9 Obstructive sleep apnea refuses CPAP Osteoporosis Paroxysmal tachycardia Peptic ulcer disease Periprosthetic fracture around internal prosthetic left hip joint Respiratory failure Restless leg syndrome Selective deficiency of IgG Type 2 diabetes mellitus, with long-term current use of insulin Vitamin D deficiency Surgical History H/O total hip arthroplasty left H/O: hysterectomy History of bronchoscopy (~11/2017) by Dr. Churchill followed by a mediastinoscopy and biopsy in December 2017 History of tonsillectomy and adenoidectomy Hx of cataract extraction bilateral. 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 Hx of cholecystectomy Hx of colonoscopy (~2015) Hx of eye surgery left Hx of total knee arthroplasty bilateral S/P appy Family History Father Cardiovascular disease Diabetes Asthma Brother Diabetes Cardiac disorder Mother Breast cancer Other Family history non-contributory Social History Smoking Status: Former smoker Second Hand Exposure: No; Hx Alcohol Use: No Hx Substance Use: No Preferred Language: [place] Communication Ability: Effective Fiscal Clerk Required: No Beliefs That Will Affect Care: None marital status: Current Living Situation: Custodial and Rehab Current Living Situation Comment: Rehab at [facility] current occupational status: retired Feels Safe at Home: Yes Assistive Devices: Oxygen - Continuous Review of Systems A total of 10 systems reviewed and were otherwise negative Physical Exam Vital Signs Vital Signs - 24 hr 07/21/22 02:27 07/21/22 02:32 07/21/22 02:33 Temperature 36.9 C Temperature Source Oral Pulse Rate 106 H 99 H Pulse Rate from SpO2 Sensor 98 H Respiratory Rate 20 Blood Pressure 134/69 Blood Pressure Mean 90 Pulse Oximetry 97 98 98 Oxygen Delivery Method Nasal Cannula Nasal Cannula Oxygen Flow Rate 2 2 Sepsis Recent Fever Within 48 Hours No Sepsis New/Unexplained Change in Mental Status No Sepsis Action Taken by Nursing No Action Required 07/21/22 03:00 07/21/22 03:01 07/21/22 03:01 Temperature Temperature Source Pulse Rate 112 H 111 H Pulse Rate from SpO2 Sensor 86 111 H Respiratory Rate 29 H 21 Blood Pressure 153/74 H Blood Pressure Mean 100 Pulse Oximetry 97 98 Oxygen Delivery Method Oxygen Flow Rate Sepsis Recent Fever Within 48 Hours Sepsis New/Unexplained Change in Mental Status Sepsis Action Taken by Nursing 07/21/22 03:20 07/21/22 03:20 07/21/22 03:30 Temperature Temperature Source Pulse Rate 101 H 105 H Pulse Rate from SpO2 Sensor 106 H 87 Respiratory Rate 24 19 Blood Pressure 171/73 H Blood Pressure Mean 105 Pulse Oximetry 100 96 Oxygen Delivery Method Oxygen Flow Rate Sepsis Recent Fever Within 48 Hours Sepsis New/Unexplained Change in Mental Status Sepsis Action Taken by Nursing GENERAL: Patient is awake alert in no acute distress patient is resting comfortably and showing no signs of anxiety EYES: 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 Mucous membranes are moist. Tongue is midline. NECK: The neck is nontender and supple. RESPIRATORY: Normal respiratory effort is noted there is rhonchi and crackles bilaterally CARDIOVASCULAR: Regular rate and rhythm noted there no murmurs rubs or gallops normal S1 normal S2. GASTROINTESTINAL: The abdomen is soft. Abdomen is nontender. PELVIS: The Pelvis is stable. No tenderness to palpation is noted. BACK: No midline tenderness or or step-off noted range of motion in flexion extension as well as rotation no signs of muscle spasm noted MUSCULOSKELETAL/EXTREMITIES: There is no evidence of gross deformity full range of motion is noted in the hips and shoulders. Bilateral lower extremity edema SKIN: There is no obvious evidence of any rash. There are no petechiae, pallor or cyanosis noted. NEUROLOGIC: Patient is awake alert and oriented x3 strength is symmetric Course Reevaluation(s) Reevaluation #1: Patient was started empirically on antibiotics, given IV Solu-Medrol, IV magnesium. [facility] I suspect a COPD exacerbation and low magnesium. Time: 04:30 Administered Medications Magnesium Sulfate/Dextrose (Magnesium Sulfate / D5w) 1 gm in 100 mls @ 200 mls/hr IV Q30M CRISTINA Stop: 07/21/22 04:47 Last Admin: 07/21/22 04:02 Dose: 200 mls/hr Documented By: YOGESH Discontinued Medications Ceftriaxone Sodium (Rocephin) 2,000 mg in 70 mls @ 140 mls/hr IV NOW STA Stop: 07/21/22 04:19 Last Admin: 07/21/22 04:02 Dose: 140 mls/hr Documented By: YOGESH Methylprednisolone (Methylprednisolone 125 Mg/2 Ml Vial) 125 mg IV NOW STA Stop: 07/21/22 03:51 Last Admin: 07/21/22 04:02 Dose: 125 mg Documented By: YOGESH Critical Care Time Critical Care Time: Yes Total Critical Care Time: 35 I have personally spent greater than 35 minutes of critical care time in the direct management of this patient. This includes bedside care, interpretation of diagnostic studies, and testing, discussion with consultants, patient, and family members, and other required patient management activities. These minutes are in excess of all separately billable procedures. Medical Decision Making Medical Records Attestation: I reviewed the patient's medical records. Home Medications Current Medication List: was personally reviewed by me Laboratory Data Attestation: I reviewed the patient's lab results. Result diagrams: 07/21/22 02:45 07/21/22 02:45 Lab Results 07/21/22 07/21/22 07/21/22 Range/Units 02:05 02:05 02:45 WBC Cancelled RBC Cancelled Hgb Cancelled Hct Cancelled MCV Cancelled MCH Cancelled MCHC Cancelled RDW Std Deviation Cancelled RDW Coeff of Yevgeniy Cancelled Plt Count Cancelled MPV Cancelled Immature Gran % (Auto) Cancelled Neut % (Auto) Cancelled Lymph % (Auto) Cancelled [place] % (Auto) Cancelled Eos % (Auto) Cancelled Baso % (Auto) Cancelled Neut # (Auto) Cancelled Lymph # (Auto) Cancelled [place] # (Auto) Cancelled Eos # (Auto) Cancelled Baso # (Auto) Cancelled Immature Gran # (Auto) Cancelled Absolute Nucleated RBC Cancelled Nucleated RBC % (auto) Cancelled Neutrophils % (Manual) Cancelled Band Neutrophils % Cancelled Lymphocytes % (Manual) Cancelled Prolymphocyte % Cancelled Reactive Lymphs % (Man) Cancelled Monocytes % (Manual) Cancelled Eosinophils % (Manual) Cancelled Basophils % (Manual) Cancelled Metamyelocytes % (Man) Cancelled Myelocytes % (Man) Cancelled Promyelocytes % (Man) Cancelled Blast Cells % (Manual) Cancelled Plasma Cell % (Manual) Cancelled Other Cells % Cancelled Nucleated RBC % Cancelled Neutrophils # (Manual) Cancelled Band Neutrophils # Cancelled Total Absolute Neuts Cancelled Lymphocytes # (Manual) Cancelled Prolymphocyte # Cancelled Reactive Lymphs # Cancelled Total Abs Lymphocytes Cancelled Monocytes # (Manual) Cancelled Eosinophils # (Manual) Cancelled Basophils # (Manual) Cancelled Metamyelocytes # (Man) Cancelled Myelocytes # (Manual) Cancelled Promyelocytes # (Man) Cancelled Blast Cells # (Man) Cancelled Plasma Cell # (Manual) Cancelled Other Cells # Cancelled Nucleated RBCs # (Man) Cancelled Hypersegmented Neuts Cancelled Hyposegmented Neuts Cancelled Hypogranular Neuts Cancelled Large Granular Lymphs Cancelled # Lrg Granular Lymphs Cancelled Hairy Cells Cancelled Smudge Cells Cancelled Toxic Granulation Cancelled Toxic Vacuolation Cancelled Dohle Bodies Cancelled Jay Rods Cancelled Platelet Estimate Cancelled Hypogranular Platelets Cancelled Clumped Platelets Cancelled Giant Platelets Cancelled Platelet Satelliting Cancelled RBC Morphology Cancelled Polychromasia Cancelled Hypochromasia Cancelled Poikilocytosis Cancelled Basophilic Stippling Cancelled Anisocytosis Cancelled Microcytosis Cancelled Macrocytosis Cancelled Spherocytes Cancelled Pappenheimer Bodies Cancelled Sickle Cells Cancelled Target Cells Cancelled Tear Drop Cells Cancelled Ovalocytes Cancelled Stomatocytes Cancelled [place] Bodies Cancelled Echinocytes Cancelled Acanthocytes (Spur) Cancelled Rouleaux Cancelled RBC Agglutinates Cancelled Schistocytes Cancelled Sezary Cell Cancelled Sodium (136-145) mmol/L Potassium (3.5-5.1) mmol/L Chloride (98-107) mmol/L Carbon Dioxide (21-32) mmol/L Anion Gap (3-11) BUN (6-23) mg/dl Creatinine (0.6-1.2) mg/dl Est Cr Clr Drug Dosing ml/min Est GFR ( Amer) ml/min Est GFR (Non-Af Amer) ml/min BUN/Creatinine Ratio (10-20) Glucose (70-99(Fasting)) mg/dl Lactate (0.4-2.0) mmol/L Calcium (8.5-10.1) mg/dl Magnesium (1.7-2.4) mg/dl Total Bilirubin (0.2-1.0) mg/dl Direct Bilirubin (0-0.2) mg/dl AST (13-39) U/L ALT (7-52) U/L Alkaline Phosphatase (34-104) U/L Troponin I High Sens (0-14) pg/ml Total Protein (6.0-8.3) gm/dl Albumin (3.4-5.0) gm/dl Procalcitonin Cancelled 0.40 SARS-CoV-2, RNA, NAAT (NEGATIVE) Blood Parasites ID Cancelled 07/21/22 07/21/22 07/21/22 Range/Units 02:45 02:45 02:45 WBC 13.45 H RBC 3.67 L Hgb 10.4 L Hct 33.4 L MCV 91.0 MCH 28.3 MCHC 31.1 L RDW Std Deviation 48.2 H RDW Coeff of Yevgeniy 14.4 Plt Count 353 MPV 12.3 Immature Gran % (Auto) 6.0 Neut % (Auto) 75.3 Lymph % (Auto) 10.0 [place] % (Auto) 8.0 Eos % (Auto) 0.3 Baso % (Auto) 0.4 Neut # (Auto) 10.12 H Lymph # (Auto) 1.35 [place] # (Auto) 1.07 H Eos # (Auto) 0.04 Baso # (Auto) 0.06 Immature Gran # (Auto) 0.81 H Absolute Nucleated RBC Nucleated RBC % (auto) Neutrophils % (Manual) Band Neutrophils % Lymphocytes % (Manual) Prolymphocyte % Reactive Lymphs % (Man) Monocytes % (Manual) Eosinophils % (Manual) Basophils % (Manual) Metamyelocytes % (Man) Myelocytes % (Man) Promyelocytes % (Man) Blast Cells % (Manual) Plasma Cell % (Manual) Other Cells % Nucleated RBC % Neutrophils # (Manual) Band Neutrophils # Total Absolute Neuts Lymphocytes # (Manual) Prolymphocyte # Reactive Lymphs # Total Abs Lymphocytes Monocytes # (Manual) Eosinophils # (Manual) Basophils # (Manual) Metamyelocytes # (Man) Myelocytes # (Manual) Promyelocytes # (Man) Blast Cells # (Man) Plasma Cell # (Manual) Other Cells # Nucleated RBCs # (Man) Hypersegmented Neuts Hyposegmented Neuts Hypogranular Neuts Large Granular Lymphs # Lrg Granular Lymphs Hairy Cells Smudge Cells Toxic Granulation Toxic Vacuolation Dohle Bodies Jay Rods Platelet Estimate Hypogranular Platelets Clumped Platelets Giant Platelets Platelet Satelliting RBC Morphology Unremarkable Polychromasia Hypochromasia Poikilocytosis Basophilic Stippling Anisocytosis Microcytosis Macrocytosis Spherocytes Pappenheimer Bodies Sickle Cells Target Cells Tear Drop Cells Ovalocytes Stomatocytes [place] Bodies Echinocytes Acanthocytes (Spur) Rouleaux RBC Agglutinates Schistocytes [place] Cell Sodium 134 L (136-145) mmol/L Potassium 5.7 H (3.5-5.1) mmol/L Chloride 101 (98-107) mmol/L Carbon Dioxide 25 (21-32) mmol/L Anion Gap 8 (3-11) BUN 32 H (6-23) mg/dl Creatinine 1.12 (0.6-1.2) mg/dl Est Cr Clr Drug Dosing 49.5 ml/min Est GFR ( Amer) 54.5 ml/min Est GFR (Non-Af Amer) 47.0 ml/min BUN/Creatinine Ratio 28.6 H (10-20) Glucose 132 H (70-99(Fasting)) mg/dl Lactate (0.4-2.0) mmol/L Calcium 8.8 (8.5-10.1) mg/dl Magnesium 1.1 L (1.7-2.4) mg/dl Total Bilirubin 0.5 (0.2-1.0) mg/dl Direct Bilirubin 0.1 (0-0.2) mg/dl AST 24 (13-39) U/L ALT 15 (7-52) U/L Alkaline Phosphatase 177 H (34-104) U/L Troponin I High Sens 25.7 H (0-14) pg/ml Total Protein 6.6 (6.0-8.3) gm/dl Albumin 3.2 L (3.4-5.0) gm/dl Procalcitonin SARS-CoV-2, RNA, NAAT NEGATIVE (NEGATIVE) Blood Parasites ID 07/21/22 Range/Units 03:53 WBC RBC Hgb Hct MCV MCH MCHC RDW Std Deviation RDW Coeff of Yevgeniy Plt Count MPV Immature Gran % (Auto) Neut % (Auto) Lymph % (Auto) [place] % (Auto) Eos % (Auto) Baso % (Auto) Neut # (Auto) Lymph # (Auto) [place] # (Auto) Eos # (Auto) Baso # (Auto) Immature Gran # (Auto) Absolute Nucleated RBC Nucleated RBC % (auto) Neutrophils % (Manual) Band Neutrophils % Lymphocytes % (Manual) Prolymphocyte % Reactive Lymphs % (Man) Monocytes % (Manual) Eosinophils % (Manual) Basophils % (Manual) Metamyelocytes % (Man) Myelocytes % (Man) Promyelocytes % (Man) Blast Cells % (Manual) Plasma Cell % (Manual) Other Cells % Nucleated RBC % Neutrophils # (Manual) Band Neutrophils # Total Absolute Neuts Lymphocytes # (Manual) Prolymphocyte # Reactive Lymphs # Total Abs Lymphocytes Monocytes # (Manual) Eosinophils # (Manual) Basophils # (Manual) Metamyelocytes # (Man) Myelocytes # (Manual) Promyelocytes # (Man) Blast Cells # (Man) Plasma Cell # (Manual) Other Cells # Nucleated RBCs # (Man) Hypersegmented Neuts Hyposegmented Neuts Hypogranular Neuts Large Granular Lymphs # Lrg Granular Lymphs Hairy Cells Smudge Cells Toxic Granulation Toxic Vacuolation Dohle Bodies Jay Rods Platelet Estimate Hypogranular Platelets Clumped Platelets Giant Platelets Platelet Satelliting RBC Morphology Polychromasia Hypochromasia Poikilocytosis Basophilic Stippling Anisocytosis Microcytosis Macrocytosis Spherocytes Pappenheimer Bodies Sickle Cells Target Cells Tear Drop Cells Ovalocytes Stomatocytes [place] Bodies Echinocytes Acanthocytes (Spur) Rouleaux RBC Agglutinates Schistocytes Sezary Cell Sodium (136-145) mmol/L Potassium (3.5-5.1) mmol/L Chloride (98-107) mmol/L Carbon Dioxide (21-32) mmol/L Anion Gap (3-11) BUN (6-23) mg/dl Creatinine (0.6-1.2) mg/dl Est Cr Clr Drug Dosing ml/min Est GFR ( Amer) ml/min Est GFR (Non-Af Amer) ml/min BUN/Creatinine Ratio (10-20) Glucose (70-99(Fasting)) mg/dl Lactate 0.7 (0.4-2.0) mmol/L Calcium (8.5-10.1) mg/dl Magnesium (1.7-2.4) mg/dl Total Bilirubin (0.2-1.0) mg/dl Direct Bilirubin (0-0.2) mg/dl AST (13-39) U/L ALT (7-52) U/L Alkaline Phosphatase (34-104) U/L Troponin I High Sens (0-14) pg/ml Total Protein (6.0-8.3) gm/dl Albumin (3.4-5.0) gm/dl Procalcitonin SARS-CoV-2, RNA, NAAT (NEGATIVE) Blood Parasites ID Imaging Data Attestation: I personally reviewed and interpreted this imaging study as follow s: My Impression: Chest x-ray interpreted by me pacer COPD changes questionable right lower lobe infiltrate ECG Data Attestation: I personally reviewed and interpreted this ECG as follows: Additional Comments: EKG interpreted by me sinus tachycardia rate of 124 first-degree AV block right bundle branch block possible paced rhythm no obvious ST segment elevation or depression MDM Narrative Medical decision making differential diagnosis COPD exacerbation, pneumonia, upper respiratory tract infection, electrolyte abnormality, cardiac event, CHF. Plan is to check labs, EKG, chest x-ray. Patient was found to have low magnesium that was replaced with IV magnesium, patient was given IV Solu-Medrol for COPD, patient was given empiric antibiotics for suspected pneumonia. The case was discussed with the hospitalist for admission. Patient will be admitted for dyspnea and hypomagnesemia and COPD exacerbation Impression & Plan COPD with acute exacerbation, Pneumonia, Elevated troponin, Acute hyperkalemia, Hypomagnesemia Discharge Plan Visit Data Chief Complaint: Cough Stated Complaint: COUGH ED Provider: Shaggy Love Discharge Problem: COPD with acute exacerbation, Pneumonia, Elevated troponin, Acute hyperkalemia, Hypomagnesemia Patient Disposition: Being Evaluated by Hospitalist Forms Stand Alone Forms: My [facility] [place] Prescriptions Prescriptions: No Action cholecalciferol (vitamin D3) 50 mcg (2,000 unit) capsule 2,000 unit PO DAILY latanoprost [Xalatan] 0.005 % drops 1 drp OPR HS Rx Instructions: 1 drop right eye daily at bedtime Alphagan P 0.1 % drops 1 drp ophthalmic (eye) BID Rx Instructions: 1 drop right eye twice daily timolol maleate 0.5 % drops 1 drp ophthalmic (eye) BID Rx Instructions: 1 drop right eye twice daily warfarin 5 mg tablet See Rx Instructions PO UD Rx Instructions: ON HOLD7.5mg q MWF, 10mg x 4 days per [facility] PO use as directed; zoledronic swlo-vfscdxbo-zhnit [Reclast] 5 mg/100 mL piggyback 1 ea IV YEARLY Rx Instructions: last dose November 2021 umeclidinium 62.5 mcg/actuation blister with device 62.5 mcg Inhalation DAILY Qty: 90 3RF albuterol sulfate [Ventolin HFA] 90 mcg/actuation HFA aerosol inhaler 2 puff INHALATION Q4H PRN (Reason: Shortness Of Breath Or Wheezing) Qty: 3 3RF amoxicillin 500 mg tablet 500 mg PO BID Qty: 30 0RF simvastatin 40 mg tablet 40 mg PO HS Qty: 90 3RF (DME) lancets [OneTouch Delica Lancets] 33 gauge misc See Rx Instructions .Route Qty: 200 3RF Rx Instructions: Test blood sugars twice a day fluticasone propion-salmeterol [Advair Diskus] 250-50 mcg/dose blister with device 1 inh inhalation BID Qty: 60 5RF Rx Instructions: WITH A RINSE OF MOUTH AFTERWARDS. insulin aspart U-100 [Novolog Flexpen U-100 Insulin] 100 unit/mL (3 mL) insulin pen 2 - 3 unit subcut UD Rx Instructions: Inject as directed meals by Endocrinology for high blood sugar Lantus Solostar U-100 Insulin 100 unit/mL (3 mL) insulin pen 10 unit SUBCUT HS ferrous sulfate 325 mg (65 mg iron) tablet 325 mg PO DAILY calcium carbonate [Calcium 600] 600 mg calcium (1,500 mg) tablet 600 mg PO BID cyanocobalamin (vitamin B-12) 1,000 mcg capsule 1,000 mcg PO DAILY multivitamin Tablet 1 tab PO DAILY acetaminophen 500 mg tablet 1,000 mg PO DIRECTED PRN (Reason: headache) ascorbic acid (vitamin C) 500 mg tablet 1 g PO DAILY PreserVision AREDS-2 250-90-40-1 mg Capsule 1 tab PO DAILY pantoprazole 40 mg tablet,delayed release (DR/EC) 40 mg PO DAILY Rx Instructions: TAKE 1 TABLET DAILY metformin 1,000 mg tablet 1,000 mg PO DAILY Rx Instructions: TAKE 1 TABLET DAILY ropinirole 0.5 mg tablet 1.5 mg PO HS Rx Instructions: TAKE 3 TABLETS (1.5 MG) AT BEDTIME Referrals Referrals: Jean Beach MD [Primary Care Provider] -
[2022-07-21] MEDS ORDERED: AZITHROMYCIN 500 MG in DEXTROSE 5% 250 ML IV STA (03:50)
[2022-07-21] MEDS ORDERED: methylPREDNISolone 125 MG/2 ML VIAL IV STA (03:50)
[2022-07-21] MEDS ORDERED: cefTRIAXone SODIUM 2,000 MG/70 ML BAG IV STA (03:50)
[2022-07-21] MEDS: MAGNESIUM SULFATE / D5W 1 GM/100 ML BAG IV SCH ×2 (04:02→04:38)
--- NOTE | 2022-07-21 04:30 | History & Physical Report ---
Date of Service July 21, 2022 Assessment & Plan (1) COPD with acute exacerbation: Plan: Patient is given by the ED the following: Magnesium sulfate 2 g IV, Solu-Medrol 125 mg IV, ceftriaxone 2 g IV, and azithromycin 500 mg IV. Solu-Medrol 40 mg IV every 8 hours Pulmicort Respules 0.5 mg inhaled twice daily Albuterol HFA 2 puffs 4 times daily, and every 2 hours as needed DuoNebs every 2 hours as needed Guaifenesin extended release 1200 mg p.o. twice daily Ceftriaxone 2 g IV daily Azithromycin 500 mg IV daily Patient is COVID-19 negative (2) Acute on chronic respiratory failure with hypoxia: Plan: Secondary to COPD exacerbation and URI Treat as above (3) Elevated troponin: Plan: Elevated troponin/paroxysmal atrial fibrillation Troponin 25.7 on admission The patient will be admitted to telemetry for serial cardiac enzymes, serial EKG's, cardiac rhythm monitoring and a 2-D echocardiogram with Dopplers. Likely type II supply demand mismatch Continue warfarin, check a PT/INR (4) URI (upper respiratory infection): Plan: See above (5) Acute hyperkalemia: Plan: Potassium 5.7 on admission, occasional PVCs on monitor and noted on EKG Give Veltassa 8.4 mg p.o. now and daily Calcium gluconate 1 g IV now (6) Paroxysmal atrial fibrillation: (7) DVT (deep venous thrombosis): Plan: On warfarin as outpatient Check a PT/INR (8) Diabetes mellitus: Plan: Hold metformin Continue glargine 10 units subcu at bedtime Anticipate increase in glucose readings associated with IV steroids (9) Diabetic peripheral neuropathy associated with type 2 diabetes mellitus: (10) Restless leg syndrome: Plan: Continue ropinirole 1.5 mg at bedtime (11) Obstructive sleep apnea: Plan: Patient refuses CPAP (12) Esophageal reflux: Plan: Continue pantoprazole 40 mg daily (13) Dyslipidemia: Plan: Continue simvastatin 40 mg at bedtime Check a fasting lipid panel History of Present Illness Chief Complaint: The patient presents to the emergency department, with her in attendance, with complaint of a couple weeks of progressively worsening productive cough, shortness of breath, dyspnea on exertion and generalized fatigue, all of which have worsened over the past 24 hours Primary Care Provider: Jean Beach MD The patient is a 76-year-old female with a past medical history including COPD, osteoporosis, paroxysmal atrial fibrillation, long-term use of 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, DVT, infected hardware in left leg, peptic ulcer disease, anemia, diabetes mellitus, cardiac pacemaker, high-grade AV block, BPPV, SNHL, RLS, vitamin D deficiency, hypertension, GERD, mediastinal adenopathy, multiple pulmonary nodules, dyslipidemia, asthma and pernicious anemia. The patient presents to the emergency department with 2 weeks of worsening symptoms as noted above, in particular worsening over the past 24 hours. In the emergency department, the patient looks quite fatigued, and pulse ox on room air is in the upper 80s to low 90s. Allergies Allergy/AdvReac Type Severity Reaction Status Date / Time No Known Allergies Allergy Verified 07/21/22 02:40 Home Medications Medication Instructions Recorded Confirmed Type calcium carbonate 600 mg calcium 600 mg PO BID 04/18/21 07/21/22 History (1,500 mg) tablet (Calcium) cholecalciferol (vitamin D3) 50 2,000 unit PO DAILY 04/18/21 07/21/22 History mcg (2,000 unit) capsule cyanocobalamin (vitamin B-12) 1,000 mcg PO DAILY 04/18/21 07/21/22 History 1,000 mcg capsule insulin aspart U-100 100 unit/mL 2 - 3 unit subcut UD 04/18/21 07/21/22 History (3 mL) subcutaneous pen (Novolog Flexpen U-100 Insulin aspart) multivitamin 1 tab PO DAILY 04/18/21 07/21/22 History umeclidinium 62.5 mcg/actuation 62.5 mcg inhalation DAILY #90 ea 09/04/21 07/21/22 Rx blister powder for inhalation albuterol sulfate 90 mcg/actuation 2 puff inhalation Q4H PRN 10/04/21 07/21/22 Rx aerosol inhaler (Ventolin HFA) Shortness Of Breath Or Wheezing #3 Inhalers acetaminophen 500 mg tablet 1,000 mg PO DIRECTED PRN 11/06/21 07/21/22 History headache ascorbic acid (vitamin C) 500 mg 1 g PO DAILY 11/06/21 07/21/22 History tablet ferrous sulfate 325 mg (65 mg 325 mg PO DAILY 11/06/21 07/21/22 History iron) tablet zoledronic acid 5 mg/100 mL in 1 ea IV YEARLY 12/17/21 07/21/22 History mannitol 5 %-water intravenous piggybck (Reclast) amoxicillin 500 mg tablet 500 mg PO BID #30 tabs 12/23/21 07/21/22 Rx insulin glargine 100 unit/mL (3 10 unit subcut HS 01/20/22 07/21/22 History mL) subcutaneous pen (Lantus Solostar U-100 Insulin) simvastatin 40 mg tablet 40 mg PO HS #90 tabs 02/24/22 07/21/22 Rx lancets 33 gauge (OneTouch Delica #200 ea 03/10/22 07/17/22 Rx Lancets) fluticasone 250 mcg-salmeterol 50 1 inh inhalation BID #60 ea 06/09/22 07/21/22 Rx mcg/dose blistr powdr for inhalation (Advair Diskus) brimonidine 0.1 % eye drops 1 drp ophthalmic (eye) BID 06/16/22 07/21/22 History (Alphagan P) latanoprost 0.005 % eye drops 1 drp OPR HS 06/16/22 07/21/22 History (Xalatan) timolol maleate 0.5 % eye drops 1 drp ophthalmic (eye) BID 06/16/22 07/21/22 History warfarin 5 mg tablet See Rx Instructions PO UD 07/17/22 07/21/22 History metformin 1,000 mg tablet 1,000 mg PO DAILY 07/21/22 07/21/22 History pantoprazole 40 mg tablet,delayed 40 mg PO DAILY 07/21/22 07/21/22 History release ropinirole 0.5 mg tablet 1.5 mg PO HS 07/21/22 07/21/22 History vit C 250 mg-vit E 90 mg-zinc 40 1 tab PO DAILY 07/21/22 07/21/22 History mg-copper 1 [id number]-[id number] capsule (PreserVision AREDS-2) Past Med/Surg History Medical History Acute GI bleeding Acute hyperkalemia Asthma Carpal tunnel syndrome on right Diabetic peripheral neuropathy associated with type 2 diabetes mellitus Dyslipidemia Esophageal reflux Femur fracture, left First degree atrioventricular block History of rib fracture HTN (hypertension) Hx of fracture of femur Insomnia Iron deficiency anemia secondary to inadequate dietary iron intake Lab test positive for detection of COVID-19 virus Mediastinal adenopathy Multiple pulmonary nodules Obesity, morbid, BMI 40.0-49.9 Obstructive sleep apnea refuses CPAP Osteoporosis Paroxysmal tachycardia Peptic ulcer disease Periprosthetic fracture around internal prosthetic left hip joint Respiratory failure Restless leg syndrome Selective deficiency of IgG Type 2 diabetes mellitus, with long-term current use of insulin Vitamin D deficiency Surgical History H/O total hip arthroplasty left H/O: hysterectomy History of bronchoscopy (~11/2017) by Dr. Churchill followed by a mediastinoscopy and biopsy in December 2017 History of tonsillectomy and adenoidectomy Hx of cataract extraction bilateral. 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 Hx of cholecystectomy Hx of colonoscopy (~2015) Hx of eye surgery left Hx of total knee arthroplasty bilateral S/P appy Family History Father Cardiovascular disease Diabetes Asthma Brother Diabetes Cardiac disorder Mother Breast cancer Other Family history non-contributory Social History Smoking Status: Former smoker Second Hand Exposure: No; Hx Alcohol Use: No Hx Substance Use: No Preferred Language: Comoran Communication Ability: Effective Vacuum Tester Cans Required: No Beliefs That Will Affect Care: None marital status: Current Living Situation[facility] Current Living Situation Comment: Rehab at [facility] current occupational status: retired Feels Safe at Home: Yes Assistive Devices: Oxygen - Continuous Review of Systems Review of Systems: The patient denies chest pain, palpitations, lower extremity swelling, sore throat, fevers, chills, sweats, nausea, vomiting, diarrhea , constipation, abdominal pain, pelvic pain, blood in urine or stool, dysuria, urinary frequency or urgency, lightheadedness, dizziness, headache, memory loss, loss of consciousness, rash, abnormal bruising or bleeding, focal weakness, numbness or tingling in arms or legs, generalized arthralgias or myalgias, back or neck pain, or night sweats. The review of systems is otherwise negative other than for that already noted above, and at least 10 systems have been reviewed. Physical Exam Physical Exam: The patient is awake, alert and oriented 3, looks fatigued, frequent moist cough, normocephalic and atraumatic, lying in bed and in no acute distress. HEENT--PERRL, EOMI, mucous membranes and oropharynx normal. Neck--supple. No JVD. No bruits. Thyroid normal, trachea midline, no adenopathy. Heart--normal S1 and S2. No murmurs, rubs or gallops. Lungs--coarse breath sounds with wheezes bilaterally. Mild respiratory distress during coughing spells, no accessory muscle use. Abdomen--normal bowel sounds and soft. Nontender. Nondistended. Obese Extremities--no cyanosis or clubbing. No edema. Dermatologic--normal skin turgor, normal color, no abnormal lymph nodes, no rash. Neurologic--cranial nerves II through XII grossly intact. Rheumatologic--normal range of motion. Psychiatric--normal affect. Results & Data Results & Data ([facility]) Vital Signs (Past 12 Hours) Vital Signs Temp Pulse Resp BP Pulse Ox O2 Del Method O2 Flow Rate 07/21/22 03:30 105 H 19 96 07/21/22 03:20 171/73 H 07/21/22 03:20 101 H 24 100 07/21/22 03:01 153/74 H 07/21/22 03:01 111 H 21 98 07/21/22 03:00 112 H 29 H 97 07/21/22 02:33 99 H 98 07/21/22 02:32 98 Nasal Cannula 2 07/21/22 02:27 36.9 C 106 H 20 134/69 97 Nasal Cannula 2 Laboratory Results Laboratory Results WBC 13.45 K/ul (4.8-10.8) H 07/21/22 02:45 RBC 3.67 M/uL (3.93-5.22) L 07/21/22 02:45 Hgb 10.4 g/dl (12.0-16.0) L 07/21/22 02:45 Hct 33.4 % (34.1-44.9) L 07/21/22 02:45 MCV 91.0 fL (80.0-100.0) 07/21/22 02:45 MCH 28.3 pg (25.0-34.0) 07/21/22 02:45 MCHC 31.1 g/dL (32.0-36.0) L 07/21/22 02:45 RDW Std Deviation 48.2 fL (36.4-46.3) H 07/21/22 02:45 RDW Coeff of Yevgeniy 14.4 % (11.5-14.5) 07/21/22 02:45 Plt Count 353 K/uL (130-400) 07/21/22 02:45 MPV 12.3 fL (9.4-12.3) 07/21/22 02:45 Immature Gran % (Auto) 6.0 % 07/21/22 02:45 Neut % (Auto) 75.3 % 07/21/22 02:45 Lymph % (Auto) 10.0 % 07/21/22 02:45 Grant % (Auto) 8.0 % 07/21/22 02:45 Eos % (Auto) 0.3 % 07/21/22 02:45 Baso % (Auto) 0.4 % 07/21/22 02:45 Neut # (Auto) 10.12 K/uL (1.4-6.5) H 07/21/22 02:45 Lymph # (Auto) 1.35 K/uL (1.2-3.4) 07/21/22 02:45 Grant # (Auto) 1.07 K/uL (0.24-0.82) H 07/21/22 02:45 Eos # (Auto) 0.04 K/uL (0-0.50) 07/21/22 02:45 Baso # (Auto) 0.06 K/uL (0-0.2) 07/21/22 02:45 Immature Gran # (Auto) 0.81 K/uL (0.00-0.02) H 07/21/22 02:45 Absolute Nucleated RBC Cancelled 07/21/22 02:05 Nucleated RBC % (auto) Cancelled 07/21/22 02:05 Neutrophils % (Manual) Cancelled 07/21/22 02:05 Band Neutrophils % Cancelled 07/21/22 02:05 Lymphocytes % (Manual) Cancelled 07/21/22 02:05 Prolymphocyte % Cancelled 07/21/22 02:05 Reactive Lymphs % (Man) Cancelled 07/21/22 02:05 Monocytes % (Manual) Cancelled 07/21/22 02:05 Eosinophils % (Manual) Cancelled 07/21/22 02:05 Basophils % (Manual) Cancelled 07/21/22 02:05 Metamyelocytes % (Man) Cancelled 07/21/22 02:05 Myelocytes % (Man) Cancelled 07/21/22 02:05 Promyelocytes % (Man) Cancelled 07/21/22 02:05 Blast Cells % (Manual) Cancelled 07/21/22 02:05 Plasma Cell % (Manual) Cancelled 07/21/22 02:05 Other Cells % Cancelled 07/21/22 02:05 Nucleated RBC % Cancelled 07/21/22 02:05 Neutrophils # (Manual) Cancelled 07/21/22 02:05 Band Neutrophils # Cancelled 07/21/22 02:05 Total Absolute Neuts Cancelled 07/21/22 02:05 Lymphocytes # (Manual) Cancelled 07/21/22 02:05 Prolymphocyte # Cancelled 07/21/22 02:05 Reactive Lymphs # Cancelled 07/21/22 02:05 Total Abs Lymphocytes Cancelled 07/21/22 02:05 Monocytes # (Manual) Cancelled 07/21/22 02:05 Eosinophils # (Manual) Cancelled 07/21/22 02:05 Basophils # (Manual) Cancelled 07/21/22 02:05 Metamyelocytes # (Man) Cancelled 07/21/22 02:05 Myelocytes # (Manual) Cancelled 07/21/22 02:05 Promyelocytes # (Man) Cancelled 07/21/22 02:05 Blast Cells # (Man) Cancelled 07/21/22 02:05 Plasma Cell # (Manual) Cancelled 07/21/22 02:05 Other Cells # Cancelled 07/21/22 02:05 Nucleated RBCs # (Man) Cancelled 07/21/22 02:05 Hypersegmented Neuts Cancelled 07/21/22 02:05 Hyposegmented Neuts Cancelled 07/21/22 02:05 Hypogranular Neuts Cancelled 07/21/22 02:05 Large Granular Lymphs Cancelled 07/21/22 02:05 # Lrg Granular Lymphs Cancelled 07/21/22 02:05 Hairy Cells Cancelled 07/21/22 02:05 Smudge Cells Cancelled 07/21/22 02:05 Toxic Granulation Cancelled 07/21/22 02:05 Toxic Vacuolation Cancelled 07/21/22 02:05 Dohle Bodies Cancelled 07/21/22 02:05 Ajy Rods Cancelled 07/21/22 02:05 Platelet Estimate Cancelled 07/21/22 02:05 Hypogranular Platelets Cancelled 07/21/22 02:05 Clumped Platelets Cancelled 07/21/22 02:05 Giant Platelets Cancelled 07/21/22 02:05 Platelet Satelliting Cancelled 07/21/22 02:05 RBC Morphology Unremarkable 07/21/22 02:45 Polychromasia Cancelled 07/21/22 02:05 Hypochromasia Cancelled 07/21/22 02:05 Poikilocytosis Cancelled 07/21/22 02:05 Basophilic Stippling Cancelled 07/21/22 02:05 Anisocytosis Cancelled 07/21/22 02:05 Microcytosis Cancelled 07/21/22 02:05 Macrocytosis Cancelled 07/21/22 02:05 Spherocytes Cancelled 07/21/22 02:05 Pappenheimer Bodies Cancelled 07/21/22 02:05 Sickle Cells Cancelled 07/21/22 02:05 Target Cells Cancelled 07/21/22 02:05 Tear Drop Cells Cancelled 07/21/22 02:05 Ovalocytes Cancelled 07/21/22 02:05 Stomatocytes Cancelled 07/21/22 02:05 [place] Bodies Cancelled 07/21/22 02:05 Echinocytes Cancelled 07/21/22 02:05 Acanthocytes (Spur) Cancelled 07/21/22 02:05 Rouleaux Cancelled 07/21/22 02:05 RBC Agglutinates Cancelled 07/21/22 02:05 Schistocytes Cancelled 07/21/22 02:05 Sezary Cell Cancelled 07/21/22 02:05 Sodium 134 mmol/L (136-145) L 07/21/22 02:45 Potassium 5.7 mmol/L (3.5-5.1) H 07/21/22 02:45 Chloride 101 mmol/L (98-107) 07/21/22 02:45 Carbon Dioxide 25 mmol/L (21-32) 07/21/22 02:45 Anion Gap 8 (3-11) 07/21/22 02:45 BUN 32 mg/dl (6-23) H 07/21/22 02:45 Creatinine 1.12 mg/dl (0.6-1.2) 07/21/22 02:45 Est Cr Clr Drug Dosing 49.5 ml/min 07/21/22 02:45 Est GFR ( Amer) 54.5 ml/min 07/21/22 02:45 Est GFR (Non-Af Amer) 47.0 ml/min 07/21/22 02:45 BUN/Creatinine Ratio 28.6 (10-20) H 07/21/22 02:45 Glucose 132 mg/dl (70-99(Fasting)) H 07/21/22 02:45 Lactate 0.7 mmol/L (0.4-2.0) 07/21/22 03:53 Calcium 8.8 mg/dl (8.5-10.1) 07/21/22 02:45 Magnesium 1.1 mg/dl (1.7-2.4) L 07/21/22 02:45 Total Bilirubin 0.5 mg/dl (0.2-1.0) 07/21/22 02:45 Direct Bilirubin 0.1 mg/dl (0-0.2) 07/21/22 02:45 AST 24 U/L (13-39) 07/21/22 02:45 ALT 15 U/L (7-52) 07/21/22 02:45 Alkaline Phosphatase 177 U/L (34-104) H 07/21/22 02:45 Troponin I High Sens 25.7 pg/ml (0-14) H 07/21/22 02:45 Total Protein 6.6 gm/dl (6.0-8.3) 07/21/22 02:45 Albumin 3.2 gm/dl (3.4-5.0) L 07/21/22 02:45 Procalcitonin 0.40 ng/ml (0-0.5) 07/21/22 02:45 SARS-CoV-2, RNA, NAAT NEGATIVE (NEGATIVE) 07/21/22 02:45 Blood Parasites ID Cancelled 07/21/22 02:05 9 Code Status & VTE Plan Code Status Full code VTE Prophylaxis Plan VTE Prophylaxis will be ordered: Yes (1) Diabetes mellitus Diabetes mellitus complication status: with other specified complication Diabetes mellitus transmitter engineer in charge insulin use: with transmitter engineer in charge use Diabetes mellitus type: type 2 Qualified Code(s): E11.69 - Type 2 diabetes mellitus with other specified complication; Z79.4 - education technician (current) use of insulin
[2022-07-21] MEDS ORDERED: PATIROMER CALCIUM SORBITEX 8.4 GM PACK PO ONE (04:52)
[2022-07-21] MEDS ORDERED: STAT IV STA (04:55)
[2022-07-21] MEDS ORDERED: CALCIUM GLUCONATE 10% 1,000 MG in DEXTROSE 5% 50 ML IV ONE (04:55)
[2022-07-21 05:00] LABS: INR 3.8 (0.9-1.1); Prothrombin Time 37.3 Seconds (9.0-12.0)
--- NOTE | 2022-07-21 05:00 | Billing Data ---
Date of Service July 21, 2022 Coding Level of Care Code 94359 Initial Inpt Care Lvl 3
[2022-07-21] MEDS ORDERED: WARFARIN SOD 5 MG TAB PO SCH (06:09)
[2022-07-21] MEDS ORDERED: ONDANSETRON INJ 2 MG/ML 2 ML VIAL IV PRN (06:09)
[2022-07-21] MEDS ORDERED: DEXTROSE 50% 50 ML SYRINGE IV PRN (06:09)
[2022-07-21] MEDS ORDERED: NITROGLYCERIN SL 0.4 MG/TAB TAB SL PRN (06:09)
[2022-07-21] MEDS ORDERED: GLUCOSE 40% GEL 15 GM TUBE PO PRN (06:09)
[2022-07-21] MEDS ORDERED: ALBUT/IPRATROP 3MG/0.5MG NEB 3 ML VIAL NEB PRN (06:09)
[2022-07-21] MEDS ORDERED: GLUCOSE 10 TAB/TUBE PO PRN (06:09)
[2022-07-21] MEDS ORDERED: ZOLEDRONIC ACID 5 MG/100 ML VIAL IV SCH (06:09)
[2022-07-21] MEDS ORDERED: GLUCAGON FOR INJ 1 MG VIAL SQ PRN (06:09)
[2022-07-21] MEDS ORDERED: CARBOHYDRATES FOR HYPOGLYCEMIA PO PRN (06:09)
[2022-07-21] MEDS: BUDESONIDE 0.5 MG/2 ML VIAL (PULMICORT) NEB SCH ×2 (06:44→19:32)
[2022-07-21] MEDS: ALBUTEROL HFA 8 GM INHALER INH SCH ×4 (06:45→19:32)
--- NOTE | 2022-07-21 07:19 | XRay Report ---
XR chest 1V portable CLINICAL HISTORY: Sepsis. COMPARISON STUDY: Chest CT June 13, 2001. Chest radiograph April 22, 2022. FINDINGS: Dual lead left subclavian pacer is unchanged in position. There is no evidence for pulmonar y edema. Cardiomegaly is unchanged. No pneumothorax or pleural effusion is present. Several calcified pulmonary nodules remain unchanged. No consolidation is identified to suggest pneumonia. The appeara nce of the chest is unchanged. IMPRESSION: No acute cardiopulmonary findings. No change in appearance of the chest. ACT 112: Negative or not required by law. Electronically signed by: Benjamin Wilkinson M.D. 07/21/2022 7:18 AM
[2022-07-21] MEDS: methylPREDNISolone 40 MG in SYRINGE 0 ML IV SCH ×3 (08:05→23:16)
[2022-07-21] MEDS: PANTOprazole 40 MG TAB PO SCH (08:12)
[2022-07-21] MEDS: guaiFENesin 600 MG TABCR PO SCH ×2 (08:15→21:30)
[2022-07-21] MEDS: TIMOLOL MALEATE 0.5% OP SOLN 5 ML BTL OPR SCH ×2 (08:16→21:31)
[2022-07-21] MEDS: UMECLIDINIUM BROMIDE 62.5MCG/BLISTER 7 PUFFS/INHALER INH SCH (08:19)
[2022-07-21] MEDS: FLUTICASONE/VILANTEROL 200/25MCG 14 PUFFS/INHALER INH SCH (08:19)
[2022-07-21] MEDS ORDERED: MULTIVITAMIN TAB PO SCH (09:00)
[2022-07-21] MEDS: INSULIN ASPART PER UNIT SC SCH ×4 (09:56→22:03)
[2022-07-21] MEDS: CALCIUM CARBONATE 1250MG TAB PO SCH ×2 (10:02→21:29)
[2022-07-21] MEDS: CHOLECALCIFEROL 1,000 UNITS 25 MCG TAB PO SCH (10:02)
[2022-07-21] MEDS: ASCORBIC ACID 500 MG TAB PO SCH (10:02)
[2022-07-21] MEDS: CYANOCOBALAMIN (B-12) 500 MCG TABLET PO SCH (10:02)
[2022-07-21] MEDS: CEROVITE ADV FORMULA TAB PO SCH (10:03)
[2022-07-21] MEDS: FERROUS SULFATE 325 MG TAB PO SCH (10:03)
--- NOTE | 2022-07-21 10:58 | Electrocardiogram Report ---
Test Reason : Blood Pressure : / mmHG Vent. Rate : 124 BPM Atrial Rate : 124 BPM P-R Int : 220 ms QRS Dur : 134 ms QT Int : 324 ms P-R-T Axes : 083 264 053 degrees QTc Int : 465 ms Sinus tachycardia with 1st degree A-V block with frequent Premature ventricular complexes Right bundle branch block Abnormal ECG When compared with ECG of 11-NOV-2020 06:03, Premature ventricular complexes are now Present QRS duration has decreased Confirmed by Hank Parker ([id number]) on 07/21/2022 10:57:43 AM Referred By: REFERRED SELF Confirmed By:Bethel Parker
--- NOTE | 2022-07-21 12:22 | Communication Note ---
Date of Service: July 21, 2022 Patient was seen and examined but admitted the same day therefore I will not be billing for this encounter. Ceftriaxone discontinued given procalcitonin negative, no consolidation on chest x-ray, no crackles on exam. She does have a mild neutrophilia. INR down to a 3.1 today and warfarin is being held over the weekend therefore we will restart her usual dosing today. Continue to measure INR daily as azithromycin may cause this to go back up but expected to decrease for the next few days due to holding warfarin previously. Urinalysis still pending from admission therefore we will get a straight cath sample given her neutrophilia and increased white blood count on admission without definitive pneumonia as above. Hypokalemia remains. Veltassa given this morning. We will repeat with a.m. labs.
[2022-07-21 12:53] LABS: INR 3.1 (0.9-1.1); Prothrombin Time 31.5 Seconds (9.0-12.0)
[2022-07-21 13:08] LABS: Calcium 8.7 mg/dl (8.5-10.1); Creatinine Clr Calc Pharmacy 51.8 ml/min; Est GFR (African American) 57.6 ml/min; Est GFR (Non-African American) 49.7 ml/min; Potassium 5.7 mmol/L (3.5-5.1)
[2022-07-21] MEDS ORDERED: WARFARIN SOD 7.5 MG TAB PO SCH (16:00)
[2022-07-21] MEDS ORDERED: WARFARIN SOD 7.5 MG TAB PO ONE (19:31)
[2022-07-21] MEDS ORDERED: ALBUTEROL HFA 8 GM INHALER INH PRN (20:41)
[2022-07-21] MEDS: SIMVASTATIN 40 MG TAB PO SCH (21:28)
[2022-07-21] MEDS: rOPINIRole HCL 1 MG TABLET PO SCH (21:33)
[2022-07-21] MEDS: LANTUS PER UNIT CHARGE SQ SCH (22:03)
[2022-07-21] MEDS: ALBUTEROL 0.083% NEBU SOLN 3 ML VIAL NEB SCH (22:30)
[2022-07-21] MEDS: LATANOPROST 0.005% OP SOLN 2.5 ML BTL OPR SCH (23:30)
[2022-07-22] MEDS: ALBUTEROL 0.083% NEBU SOLN 3 ML VIAL NEB SCH ×6 (02:14→22:45)
--- NOTE | 2022-07-22 04:53 | Communication Note ---
Date of Service: July 22, 2022 Messaged by nursing about Na of 130 on 07/21 noon labs. Corrected for hyperglycemia ~200 at the time is a sodium of 132. Downtrend from baseline. Presumed asymptomatic. Will add hyponatremia workup labs. serum osm, urine osm, urine Na, creatinine, BNP. Patient here w/ hyperkalemia. Will also check urine K.
[2022-07-22] MEDS ORDERED: cefTRIAXone SODIUM 2,000 MG in DEXTROSE 5% 50 ML IV SCH (06:00)
[2022-07-22] MEDS: methylPREDNISolone 40 MG in SYRINGE 0 ML IV SCH (06:34)
[2022-07-22 06:41] LABS: Appearance Urine Cloudy (Clear); Bilirubin Urine Negative (Negative); Blood Urine Negative (Negative); Color Urine Dark Yellow; Epithelial Cell Urine Auto >30 /lpf (0-5); Glucose Urine UA Negative (Negative); Ketones Urine Trace (Negative); Leukocyte Esterase Urine Trace (Negative); Nitrite Urine Negative (Negative); Protein Urine 1+ (Negative); Specific Gravity Urine 1.023 (1.000-1.030); Urobilinogen Urine Negative (Negative)
[2022-07-22 07:03] LABS: Bacteria Urine Automated 1+ (Negative)
[2022-07-22 07:26] LABS: Creatinine Urine Random 131.9 mg/dl; Potassium Random Urine 56.4 mmol/L; Sodium Random Urine < 10 mmol/L
[2022-07-22] MEDS: BUDESONIDE 0.5 MG/2 ML VIAL (PULMICORT) NEB SCH ×2 (07:41→19:46)
[2022-07-22] MEDS: INSULIN ASPART PER UNIT SC SCH ×4 (08:25→21:03)
[2022-07-22] MEDS: FERROUS SULFATE 325 MG TAB PO SCH (08:30)
[2022-07-22] MEDS: CHOLECALCIFEROL 1,000 UNITS 25 MCG TAB PO SCH (08:30)
[2022-07-22] MEDS: ASCORBIC ACID 500 MG TAB PO SCH (08:30)
[2022-07-22] MEDS: UMECLIDINIUM BROMIDE 62.5MCG/BLISTER 7 PUFFS/INHALER INH SCH (08:30)
[2022-07-22] MEDS: CYANOCOBALAMIN (B-12) 500 MCG TABLET PO SCH (08:30)
[2022-07-22] MEDS: CEROVITE ADV FORMULA TAB PO SCH (08:30)
[2022-07-22] MEDS: guaiFENesin 600 MG TABCR PO SCH ×2 (08:30→21:04)
[2022-07-22] MEDS: CALCIUM CARBONATE 1250MG TAB PO SCH ×2 (08:30→21:05)
[2022-07-22] MEDS: PANTOprazole 40 MG TAB PO SCH (08:30)
[2022-07-22] MEDS: TIMOLOL MALEATE 0.5% OP SOLN 5 ML BTL OPR SCH ×2 (08:31→21:09)
[2022-07-22] MEDS: FLUTICASONE/VILANTEROL 200/25MCG 14 PUFFS/INHALER INH SCH (08:31)
[2022-07-22] MEDS ORDERED: AZITHROMYCIN 500 MG in DEXTROSE 5% 250 ML IV SCH (09:00)
[2022-07-22 09:29] LABS: Hematocrit (blood only) 28.3 % (34.1-44.9); Mean Corpuscular Hemoglobin 27.7 pg (25.0-34.0); Mean Corpuscular Hgb Conc 31.8 g/dL (32.0-36.0); Mean Corpuscular Volume 87.1 fL (80.0-100.0); Mean Platelet Volume 12.3 fL (9.4-12.3); Platelet Count 325 K/uL (130-400); RDW Standard Deviation 45.1 fL (36.4-46.3); Red Blood Count 3.25 M/uL (3.93-5.22); White Blood Count 9.98 K/ul (4.8-10.8)
[2022-07-22 09:56] LABS: Basophils # (auto) 0.02 K/uL (0-0.2); Basophils % (auto) 0.2 %; Immature Granulocytes # (auto) 0.59 K/uL (0.00-0.02); Immature Granulocytes % (auto) 5.9 %; Lymphocytes # (auto) 0.79 K/uL (1.2-3.4); Lymphocytes % (auto) 7.9 %; Monocytes # (auto) 0.37 K/uL (0.24-0.82); Monocytes % (auto) 3.7 %; Neutrophils # (auto) 8.21 K/uL (1.4-6.5); Neutrophils % (auto) 82.3 %; Rouleaux 1+
[2022-07-22 09:58] LABS: Albumin Globulin Ratio 0.9 (0.9-2); Albumin Level 2.7 gm/dl (3.4-5.0); BUN Creatinine Ratio 35.3 (10-20); Bilirubin,Total 0.3 mg/dl (0.2-1.0); Calcium 8.5 mg/dl (8.5-10.1); Creatinine Clr Calc Pharmacy 47.7 ml/min; Est GFR (African American) 52.2 ml/min; Est GFR (Non-African American) 45.1 ml/min; Globulin 2.9 gm/dl (2.5-4.0); Magnesium 1.6 mg/dl (1.7-2.4); Potassium 5.8 mmol/L (3.5-5.1); Total Protein 5.6 gm/dl (6.0-8.3)
[2022-07-22 09:59] LABS: Prothrombin Time 39.2 Seconds (9.0-12.0)
[2022-07-22 10:07] LABS: Partial Thromboplastin Time 55.5 Seconds (21.0-31.0)
[2022-07-22] MEDS ORDERED: PATIROMER CALCIUM SORBITEX 8.4 GM PACK PO SCH (11:00)
--- NOTE | 2022-07-22 11:22 | Electrocardiogram Report ---
Test Reason : Blood Pressure : / mmHG Vent. Rate : 084 BPM Atrial Rate : 084 BPM P-R Int : 326 ms QRS Dur : 152 ms QT Int : 388 ms P-R-T Axes : 074 -74 049 degrees QTc Int : 458 ms Sinus rhythm with 1st degree A-V block Left axis deviation Right bundle branch block Abnormal ECG When compared with ECG of 21-JUL-2022 02:19, Premature ventricular complexes are no longer Present Confirmed by Hank Parker ([id number]) on 07/22/2022 11:21:34 AM Referred By: REFERRED SELF Confirmed By:Bethel Parker
[2022-07-22] MEDS ORDERED: PHARMACY GLYCEMIC MGMT CONSULT PRN (12:53)
[2022-07-22] MEDS ORDERED: SODIUM CHLORIDE 0.9% 1000ML 1,000 ML IV SCH (13:00)
[2022-07-22 13:19] LABS: Estimated Average Glucose 128 mg/dl; Hemoglobin A1C 6.1 % (4.5-5.6)
--- NOTE | 2022-07-22 13:52 | Pharmacy Report ---
Pharmacy Glycemic Short Note 2 - Date of Service July 22, 2022 - Glycemic Short BSG Results (Last 24 hours): 07/21/22 07/21/22 07/22/22 16:33 20:42 07:34 Glucose POC Glucose 184 H 161 H 177 H 07/22/22 07/22/22 08:52 11:50 Glucose 211 H POC Glucose 176 H OUTPATIENT ANTIDIABETIC REGIMEN: * Lantus 10 units HS * Novolog 2-3 units with meals * metformin 1000 mg PO daily * HbA1C = 6.1 % (07/22/22) ASSESSMENT: * Ms Resendiz is a 76 y/o F with a PMH of T2DM who presents with SOB/COPD exacerbation. * Patient received Solu-Medrol 125 mg IV x 1 on 07/21 @ 0400 then started Solu- Medrol 40 mg IV q8 on 07/21. She received 3 doses. * BSGs yesterday were [phone] mg/dl. She received 15 units of insulin (10 units of basal and 5 units of bolus). * BSGs today are 177-176 mg/dL. * Solu-Medrol decreased to 40 mg IV q12 (2 doses today) then will change to prednisone 40 mg daily. * Continue current regimen as BSGs are reasonable. Revaluate tomorrow. PLAN FOR INPATIENT GLYCEMIC CONTROL: * Hold outpatient oral diabetes medications * Basal insulin * Lantus 10 units SQ HS * Bolus insulin * NovoLog per scale ACHS or Q6hrs while NPO * Goal Range: Low 110 mg/dL - High 140 mg/dL * Correction Factor: 30 mg/dL/unit * Nutritional / Prandial insulin per carb ratio of 1 unit per 10 grams CHO consumed
[2022-07-22] MEDS: SODIUM ZIRCONIUM CYCLOSILICATE 10 GM PACKET PO SCH ×2 (14:27→21:08)
[2022-07-22] MEDS ORDERED: WARFARIN SOD 10 MG TAB PO SCH (16:00)
[2022-07-22] MEDS: MAGNESIUM SULFATE / D5W 1 GM/100 ML BAG IV SCH ×2 (17:14→19:09)
--- NOTE | 2022-07-22 18:01 | Hospitalist Progress Note ---
Date of Service July 22, 2022 Assessment & Plan (1) COPD with acute exacerbation: Plan: Patient is given by the ED the following: Magnesium sulfate 2 g IV, Solu-Medrol 125 mg IV, ceftriaxone 2 g IV, and azithromycin 500 mg IV. Solu-Medrol 40 mg IV switch to every 12 hours today, switch to prednisone 60 mg p.o. daily, will defer taper to physician on discharge Pulmicort Respules 0.5 mg inhaled twice daily Albuterol HFA 2 puffs 4 times daily, and every 2 hours as needed DuoNebs every 2 hours as needed Guaifenesin extended release 1200 mg p.o. twice daily Azithromycin 500 mg -> switch to p.o. tomorrow to finish 3-day course Patient is COVID-19 negative Procalcitonin negative and no consolidation on chest x-ray therefore typical coverage with ceftriaxone discontinued (2) Acute metabolic encephalopathy: Plan: Appears to be resolved at this time ?Due to COPD exacerbation +/- hypomagnesemia Hyponatremia and hyperkalemia obviously concerning for adrenal crisis however patient did not present in shock or hypotension however this remains in the differential especially if it occurs again since we are pseudo-treating this with corticosteroids. No known history of adrenal crisis If hypotensive would recommend stress dose hydrocortisone Given this has improved will defer CT head - not taken on admission Present on Admission?: Yes (3) Acute hyponatremia: Plan: Urine osmolality elevated with urine sodium low -indicative of either normal renal etiology of hypervolemia vs. edematous hyponatremia She examines relatively euvolemic although given her decreased oral intake suspect she is more hypovolemic than edematous at this time. No pulmonary edema on chest x-ray, low BNP leg swelling or JVD to suggest hypervolemia therefore will give normal saline @ 80ml/hr and serially measure sodium for response. Low urine sodium does not fit with SIADH Lower likelihood 2/2 adrenal crisis - see above TSH with AM labs (4) Acute hyperkalemia: Plan: Unclear what is driving her potassium to increase. No renal failure. No potassium supplementation. No potassium sparing diuretics. Will take labs for hemolysis and rhabdo with AM labs. Really her kidneys appear to be doing a good job of getting rid of this therefore do not suspect nephrogenic in nature. Switch Veltassa for Lokelma 10 g p.o. 3 times daily Continue to monitor potassium daily Lower likelihood 2/2 adrenal crisis - see above (5) Hypomagnesemia: Plan: Mag level 1.1 on admission 1.6 today. Magnesium sulfate 2 g IV ordered. Stop magnesium oxide 400 mg p.o. twice daily Repeat mag level in a.m. (6) Acute on chronic respiratory failure with hypoxia: Plan: Now resolved. At baseline oxygen saturation at this time (7) Elevated troponin: Plan: Do not suspect acute coronary syndrome on admission. Troponin only mildly elevated on admission. No need to repeat this. (8) Paroxysmal atrial fibrillation: Plan: Currently in normal sinus rhythm Anticoagulation with warfarin as below (9) DVT (deep venous thrombosis): Plan: Recently held warfarin due to INR greater than 8 INR back down to 3.1 yesterday therefore her usual dose was given of 7.5 mg INR 4.0 today therefore we will hold warfarin -suspect such an acute rise due to azithromycin (10) Diabetes mellitus: Plan: Hold metformin HbA1c 6.1 Appreciate pharmacy glycemic control during her inpatient admission (11) Diabetic peripheral neuropathy associated with type 2 diabetes mellitus: (12) Restless leg syndrome: Plan: Continue ropinirole 1.5 mg at bedtime (13) Obstructive sleep apnea: Plan: Patient refuses CPAP (14) Esophageal reflux: Plan: Continue pantoprazole 40 mg daily (15) Dyslipidemia: Plan: Continue simvastatin 40 mg at bedtime Plan VTE prophylaxis -supratherapeutic INR Diet -heart healthy, type 2 diabetes Disposition -continue on med telemetry pending improvement in sodium and potassium, PT/OT evals Admission and Anticipated Discharge Date Admission Date: July 21, 2022 Subjective Patient appears significantly improved from yesterday. Her is at bedside and reports she is back to her baseline mentation at this time. She is able to tell me what brought her into the hospital which she could not do yesterday. Reports progressively worse shortness of breath and generalized fatigue but it was mainly her intractable coughing and confusion that prompted her to bring her room. She is continuing to have a dry cough which is nonproductive. Review of Systems Review of Systems: All systems reviewed & are unremarkable except as noted in Subjective Physical Exam Constitutional: well developed; + not well nourished and no acute distress Eyes: Right eye recently surgically removed with mild ecchymosis surrounding this ENMT: external ear and nose normal, oropharynx normal Neck: trachea midline, no thyromegaly Respiratory: normal respiratory effort; no respiratory distress, no labored breathing, does not use accessory muscles and expiratory phase not prolonged Auscultation: + diminished lung sounds (Posteriorly); no crackles, no rales, no rhonchi and no wheezes Cardiovascular: Rate/Rhythm: regular rate and regular rhythm Heart Sounds: no murmur Vessels: no JVD Extremities: normal capillary refill and + pedal edema; no calf tenderness Gastrointestinal (Abdomen): normal bowel sounds, soft, nontender, no hepatosplenomegaly Musculoskeletal: no cyanosis or clubbing, extremities motor strength 5/5 Skin: no rashes, warm and dry Neurologic: moves all extremities and awake; not confused Psychiatric: A+Ox3, euthymic affect Results & Data Results & Data ([facility]) Vital Signs (Past 12 Hours) Vital Signs Temp Pulse Pulse Resp BP Pulse Ox Pulse Ox 07/22/22 16:44 75 07/22/22 15:53 64 16 98 07/22/22 15:26 36.5 C 75 18 119/64 98 07/22/22 11:40 07/22/22 11:32 36.7 C 86 20 108/57 L 100 07/22/22 10:51 68 16 99 07/22/22 07:55 36.6 C 86 18 116/78 96 07/22/22 07:00 95 07/22/22 07:41 78 20 99 07/22/22 07:27 86 O2 Del Method O2 Del Method O2 Flow Rate O2 Flow Rate 07/22/22 16:44 07/22/22 15:53 Nasal Cannula 2 07/22/22 15:26 Nasal Cannula 2 07/22/22 11:40 Nasal Cannula 2 07/22/22 11:32 Nasal Cannula 2 07/22/22 10:51 Nasal Cannula 2 07/22/22 07:55 Room Air 07/22/22 07:00 Nasal Cannula 2 07/22/22 07:41 Nasal Cannula 2 07/22/22 07:27 PG Care Time/CCT Total # of Minutes Spent Total Time Spent with Patient: Total time spent is greater than 50% in coordination of care (as documented) at patient's floor/unit and/or counseling patient: Coding Level of Care Code 67190 Subseq Hosp Care Lvl 3 Diagnoses COPD with acute exacerbation J44.1 Acute metabolic encephalopathy G93.41 Acute hyponatremia E87.1 Acute hyperkalemia E87.5 Hypomagnesemia E83.42 Acute on chronic respiratory failure with hypoxia J96.21 Elevated troponin R77.8 Paroxysmal atrial fibrillation I48.0 DVT (deep venous thrombosis) I82.409 Diabetes mellitus E11.69; Z79.4 Diabetes mellitus complication status: with other specified complication Diabetes mellitus terminal system operator insulin use: with assisted use Diabetes mellitus type: type 2 Diabetic peripheral neuropathy associated with type 2 diabetes mellitus E11.42 Restless leg syndrome G25.81 Obstructive sleep apnea G47.33 Esophageal reflux K21.9 Dyslipidemia E78.5 (1) Diabetes mellitus Diabetes mellitus complication status: with other specified complication Diabetes mellitus terminal system operator insulin use: with assisted use Diabetes mellitus type: type 2 Qualified Code(s): E11.69 - Type 2 diabetes mellitus with other specified complication; Z79.4 - terminal system operator (current) use of insulin
[2022-07-22 18:22] LABS: BUN Creatinine Ratio 36.3 (10-20); Calcium 8.3 mg/dl (8.5-10.1); Creatinine Clr Calc Pharmacy 44.6 ml/min; Est GFR (African American) 48.2 ml/min; Est GFR (Non-African American) 41.6 ml/min; Potassium 5.4 mmol/L (3.5-5.1)
[2022-07-22] MEDS ORDERED: DEXTROMETHORPHAN POLYMR COMPLX 30 MG/5 ML UDP PO PRN (19:26)
[2022-07-22] MEDS ORDERED: methylPREDNISolone 40 MG in SYRINGE 0 ML IV SCH (21:00)
[2022-07-22] MEDS: LANTUS PER UNIT CHARGE SQ SCH (21:03)
[2022-07-22] MEDS: LATANOPROST 0.005% OP SOLN 2.5 ML BTL OPR SCH (21:06)
[2022-07-22] MEDS: rOPINIRole HCL 1 MG TABLET PO SCH (21:07)
[2022-07-22] MEDS: SIMVASTATIN 40 MG TAB PO SCH (21:08)
[2022-07-23] MEDS: ALBUTEROL 0.083% NEBU SOLN 3 ML VIAL NEB SCH ×6 (02:30→22:22)
[2022-07-23] MEDS: BUDESONIDE 0.5 MG/2 ML VIAL (PULMICORT) NEB SCH ×2 (07:03→19:19)
[2022-07-23 07:06] LABS: Basophils # (auto) 0.02 K/uL (0-0.2); Basophils % (auto) 0.2 %; Hemoglobin 8.5 g/dl (12.0-16.0); Immature Granulocytes # (auto) 0.51 K/uL (0.00-0.02); Lymphocytes # (auto) 0.75 K/uL (1.2-3.4); Lymphocytes % (auto) 7.4 %; Mean Corpuscular Hemoglobin 27.6 pg (25.0-34.0); Mean Corpuscular Hgb Conc 31.5 g/dL (32.0-36.0); Mean Corpuscular Volume 87.7 fL (80.0-100.0); Mean Platelet Volume 12.1 fL (9.4-12.3); Monocytes # (auto) 0.57 K/uL (0.24-0.82); Monocytes % (auto) 5.6 %; Neutrophils # (auto) 8.25 K/uL (1.4-6.5); Neutrophils % (auto) 81.8 %; Nucleated RBC # (auto) 0.03 K/uL (0-0); Nucleated RBC % (auto) 0.3 %; Platelet Count 324 K/uL (130-400); RDW Coefficient of Variation 13.9 % (11.5-14.5); RDW Standard Deviation 44.4 fL (36.4-46.3); Red Blood Count 3.08 M/uL (3.93-5.22)
[2022-07-23 07:34] LABS: Albumin Level 2.5 gm/dl (3.4-5.0); BUN Creatinine Ratio 39.8 (10-20); Bilirubin,Total 0.3 mg/dl (0.2-1.0); Calcium 8.1 mg/dl (8.5-10.1); Creatinine Clr Calc Pharmacy 42.7 ml/min; Est GFR (African American) 48.7 ml/min; Globulin 2.6 gm/dl (2.5-4.0); Magnesium 2.1 mg/dl (1.7-2.4); Potassium 5.1 mmol/L (3.5-5.1); Total Protein 5.1 gm/dl (6.0-8.3)
[2022-07-23 07:35] LABS: INR 5.2 (0.9-1.1); Partial Thromboplastin Ratio 2.1; Prothrombin Time 50.8 Seconds (9.0-12.0)
[2022-07-23 07:46] LABS: Partial Thromboplastin Time 56.4 Seconds (21.0-31.0)
[2022-07-23] MEDS: FLUTICASONE/VILANTEROL 200/25MCG 14 PUFFS/INHALER INH SCH (08:09)
[2022-07-23] MEDS: UMECLIDINIUM BROMIDE 62.5MCG/BLISTER 7 PUFFS/INHALER INH SCH (08:09)
[2022-07-23] MEDS: CEROVITE ADV FORMULA TAB PO SCH (08:10)
[2022-07-23] MEDS: PANTOprazole 40 MG TAB PO SCH (08:10)
[2022-07-23] MEDS: CHOLECALCIFEROL 1,000 UNITS 25 MCG TAB PO SCH (08:10)
[2022-07-23] MEDS: MAGNESIUM OXIDE 400 MG TAB PO SCH ×2 (08:10→20:22)
[2022-07-23] MEDS: CYANOCOBALAMIN (B-12) 500 MCG TABLET PO SCH (08:10)
[2022-07-23] MEDS: CALCIUM CARBONATE 1250MG TAB PO SCH ×2 (08:11→20:22)
[2022-07-23] MEDS: ASCORBIC ACID 500 MG TAB PO SCH (08:11)
[2022-07-23] MEDS: FERROUS SULFATE 325 MG TAB PO SCH (08:11)
[2022-07-23] MEDS: INSULIN ASPART PER UNIT SC SCH ×4 (08:12→20:20)
[2022-07-23] MEDS: TIMOLOL MALEATE 0.5% OP SOLN 5 ML BTL OPR SCH ×2 (08:12→20:23)
[2022-07-23] MEDS ORDERED: predniSONE 20 MG TAB PO SCH ×2 (09:00)
[2022-07-23] MEDS ORDERED: AZITHROMYCIN 250 MG TAB PO SCH (09:00)
[2022-07-23] MEDS: guaiFENesin 600 MG TABCR PO SCH ×2 (09:49→20:22)
[2022-07-23] MEDS: SODIUM CHLORIDE 0.9% 1000ML 1,000 ML IV SCH ×2 (09:49→23:25)
[2022-07-23] MEDS: SODIUM ZIRCONIUM CYCLOSILICATE 10 GM PACKET PO SCH ×3 (11:42→23:43)
[2022-07-23] MEDS: ACETAMINOPHEN 325 MG TAB PO PRN ×2 (12:45→20:48)
--- NOTE | 2022-07-23 14:04 | Electrocardiogram Report ---
Test Reason : Blood Pressure : / mmHG Vent. Rate : 081 BPM Atrial Rate : 081 BPM P-R Int : 306 ms QRS Dur : 166 ms QT Int : 396 ms P-R-T Axes : 050 -81 030 degrees QTc Int : 460 ms Sinus rhythm with 1st degree A-V block Left axis deviation Right bundle branch block Abnormal ECG When compared with ECG of 23-JUL-2022 04:16, (unconfirmed) No significant change was found Confirmed by Hank Parker ([id number] on 07/23/2022 2:04:21 PM Referred By: REFERRED SELF Confirmed By:Bethel Parker
--- NOTE | 2022-07-23 18:13 | Hospitalist Progress Note ---
Date of Service July 23, 2022 Assessment & Plan (1) COPD with acute exacerbation: Plan: Patient is given by the ED the following: Magnesium sulfate 2 g IV, Solu-Medrol 125 mg IV, ceftriaxone 2 g IV, and azithromycin 500 mg IV. COVID-19 neg Procalcitonin negative and no consolidation on chest x-ray Much improved, on baseline O2, no wheezing -received Solu-Medrol and then switched to prednisone 60 mg p.o. daily--> go to 40mg tomorrow and taper down from there -continue Pulmicort Respules 0.5 mg inhaled twice daily -continue Albuterol HFA 2 puffs 4 times daily, and every 2 hours as needed -continue DuoNebs every 2 hours as needed -continue Guaifenesin extended release 1200 mg p.o. twice daily -completed 3 day course of Azithromycin 500 mg daily (2) Acute on chronic respiratory failure with hypoxia: Plan: Now resolved. At baseline oxygen saturation at this time of 2LNC (3) Acute hyperkalemia: Plan: Unclear what is driving her potassium to increase. No renal failure. No potassium supplementation. No potassium sparing diuretics. No evidence of rhabdo with normal CK It seems she typically is on lasix but this is not on her med list (but is prescribed as an outpatient) Really her kidneys appear to be doing a good job of getting rid of this therefore do not suspect nephrogenic in nature. Initially given Veltassa and now on Lokelma 10 g p.o. 3 times daily K+ now down to 5.1 Continue to monitor potassium daily Lower likelihood 2/2 adrenal crisis - see above -restart lasix but give lower dose 20mg daily -change diet to low K+ diet (4) Acute hyponatremia: Plan: Na+ 134 on arrival and went down to 127 over 48 hours Urine osmolality elevated at 516, with urine sodium severely low at < 10- indicative of either normal renal etiology of hypervolemia vs. edematous hyponatremia She examines relatively euvolemic although given her decreased oral intake suspect she is more hypovolemic No pulmonary edema on chest x-ray, low BNP leg swelling or JVD to suggest hypervolemia -received 1 L of normal saline @ 80ml/hr and Na+ up today to 129 -give another 2 L NS today -follow BMP in AM (5) Anemia: Plan: low at 8.5 but at baseline 8-10 normocytic check B12, folate, Fe studies in AM TSH normal continue FeSO4 (6) Hypomagnesemia: Plan: Mag level 1.1 on admission improved with replacement follow level in AM (7) Acute metabolic encephalopathy: Plan: resolved at this time ?Due to COPD exacerbation +/- hypomagnesemia and hyponatremia Hyponatremia and hyperkalemia obviously concerning for adrenal crisis however patient did not present in shock or hypotension however this remains in the differential especially if it occurs again since we are pseudo-treating this with corticosteroids. No known history of adrenal crisis Given this has improved will defer CT head - not taken on admission (8) Elevated troponin: Plan: Do not suspect acute coronary syndrome on admission. Troponin only mildly elevated on admission. No need to repeat this. (9) Paroxysmal atrial fibrillation: Plan: Currently in normal sinus rhythm Anticoagulation with warfarin as below (10) DVT (deep venous thrombosis): Plan: Recently held warfarin due to INR greater than 8-was given Vitamin K 10mg on 07/17 in antico clinic thought to be due to recent APAP use and poor po intake after her eye surgery INR back down to 3.1 on day of admission and then was given her usual dose was given of 7.5 mg INR now back up again to 5.2 -suspect such an acute rise due to azithromycin and steroids -no bleeding -continue to hold coumadin PTT also high at 55 for unclear reasons -check PTT in AM and if remains elevated, check mixing studies (11) Diabetes mellitus: Plan: Hold metformin HbA1c 6.1 Appreciate pharmacy glycemic control during her inpatient admission glucose well controlled (12) Diabetic peripheral neuropathy associated with type 2 diabetes mellitus: Plan: noted (13) Restless leg syndrome: Plan: Continue ropinirole 1.5 mg at bedtime (14) Obstructive sleep apnea: Plan: Patient refuses CPAP (15) Esophageal reflux: Plan: Continue pantoprazole 40 mg daily (16) Dyslipidemia: Plan: Continue simvastatin 40 mg at bedtime Plan VTE prophylaxis -supratherapeutic INR Disposition -continue on med telemetry pending improvement in sodium and potassium, PT/OT evals recommend return home. Hopeful for discharge to home tomorrow Admission and Anticipated Discharge Date Admission Date: July 21, 2022 Subjective Pt feeling much better. Cough overnight improved with cough syrup. Is eating and drinking, has no other complaints. Wants to get home tomorrow Tele with NSR, IVCD, PVC,s rates 80s Review of Systems Review of Systems: All systems reviewed & are unremarkable except as noted in HPI & below Physical Exam Constitutional: WD/WN, vitals as above Eyes: + no PERRL (OD enucleated) small amount right periorbital ecchymosis ENMT: external ear and nose normal, oropharynx normal Neck: trachea midline, no thyromegaly Respiratory: normal respiratory effort, lungs clear to auscultation Cardiovascular: RRR, no murmur, no edema Chest (Breasts): Chest: normal inspection of chest Gastrointestinal (Abdomen): normal bowel sounds, soft, nontender, no hepatosplenomegaly Musculoskeletal: Extremities: extremities normal to inspection; no cyanosis and no clubbing Skin: no rashes, warm and dry Neurologic: moves all extremities and awake; no focal motor deficits Psychiatric: A+Ox3, euthymic affect Lymphatic: no lymphedema Results & Data Results & Data ([facility]) Vital Signs (Past 12 Hours) Vital Signs Temp Pulse Pulse Resp BP Pulse Ox Pulse Ox 07/23/22 09:30 07/23/22 17:02 79 07/23/22 15:15 88 18 99 07/23/22 15:05 36.6 C 62 18 153/72 H 99 07/23/22 11:17 77 18 97 07/23/22 08:11 36.7 C 85 19 111/46 L 97 07/23/22 07:10 76 07/23/22 07:00 95 07/23/22 07:03 78 18 98 O2 Del Method O2 Del Method O2 Flow Rate O2 Flow Rate 07/23/22 09:30 Nasal Cannula 2 07/23/22 17:02 07/23/22 15:15 Nasal Cannula 2 07/23/22 15:05 Room Air 07/23/22 11:17 Nasal Cannula 2 07/23/22 08:11 Nasal Cannula 2 07/23/22 07:10 07/23/22 07:00 Nasal Cannula 2 07/23/22 07:03 Nasal Cannula 2 Laboratory Results 07/23/22 07/23/22 07/23/22 Range/Units 16:32 11:38 07:28 WBC (4.8-10.8) K/ul RBC (3.93-5.22) M/uL Hgb (12.0-16.0) g/dl Hct (34.1-44.9) % MCV (80.0-100.0) fL MCH (25.0-34.0) pg MCHC (32.0-36.0) g/dL RDW Std Deviation (36.4-46.3) fL RDW Coeff of Yevgeniy (11.5-14.5) % Plt Count (130-400) K/uL MPV (9.4-12.3) fL Immature Gran % (Auto) % Neut % (Auto) % Lymph % (Auto) % Barrow % (Auto) % Eos % (Auto) % Baso % (Auto) % Neut # (Auto) (1.4-6.5) K/uL Lymph # (Auto) (1.2-3.4) K/uL B[place] # (Auto) (0.24-0.82) K/uL Eos # (Auto) (0-0.50) K/uL Baso # (Auto) (0-0.2) K/uL Immature Gran # (Auto) (0.00-0.02) K/uL Absolute Nucleated RBC (0-0) K/uL Nucleated RBC % (auto) % Haptoglobin PT (9.0-12.0) Seconds INR (0.9-1.1) APTT (21.0-31.0) Seconds PTT Ratio Sodium (136-145) mmol/L Potassium (3.5-5.1) mmol/L Chloride (98-107) mmol/L Carbon Dioxide (21-32) mmol/L Anion Gap (3-11) BUN (6-23) mg/dl Creatinine (0.6-1.2) mg/dl Est Cr Clr Drug Dosing ml/min Est GFR ( Amer) ml/min Est GFR (Non-Af Amer) ml/min BUN/Creatinine Ratio (10-20) Glucose (70-99(Fasting)) mg/dl POC Glucose 159 H 170 H 141 H (70-99) mg/dl Calcium (8.5-10.1) mg/dl Magnesium (1.7-2.4) mg/dl Total Bilirubin (0.2-1.0) mg/dl AST (13-39) U/L ALT (7-52) U/L Alkaline Phosphatase (34-104) U/L Lactate Dehydrogenase (86-244) U/L Total Creatine Kinase (26-192) U/L Total Protein (6.0-8.3) gm/dl Albumin (3.4-5.0) gm/dl Globulin (2.5-4.0) gm/dl Albumin/Globulin Ratio (0.9-2) TSH (0.300-4.500) uIu/ml 07/23/22 07/23/22 07/23/22 Range/Units 06:44 06:44 06:44 WBC (4.8-10.8) K/ul RBC (3.93-5.22) M/uL Hgb (12.0-16.0) g/dl Hct (34.1-44.9) % MCV (80.0-100.0) fL MCH (25.0-34.0) pg MCHC (32.0-36.0) g/dL RDW Std Deviation (36.4-46.3) fL RDW Coeff of Yevgeniy (11.5-14.5) % Plt Count (130-400) K/uL MPV (9.4-12.3) fL Immature Gran % (Auto) % Neut % (Auto) % Lymph % (Auto) % Barrow % (Auto) % Eos % (Auto) % Baso % (Auto) % Neut # (Auto) (1.4-6.5) K/uL Lymph # (Auto) (1.2-3.4) K/uL Barrow # (Auto) (0.24-0.82) K/uL Eos # (Auto) (0-0.50) K/uL Baso # (Auto) (0-0.2) K/uL Immature Gran # (Auto) (0.00-0.02) K/uL Absolute Nucleated RBC (0-0) K/uL Nucleated RBC % (auto) % Haptoglobin Pending PT (9.0-12.0) Seconds INR (0.9-1.1) APTT (21.0-31.0) Seconds PTT Ratio Sodium (136-145) mmol/L Potassium (3.5-5.1) mmol/L Chloride (98-107) mmol/L Carbon Dioxide (21-32) mmol/L Anion Gap (3-11) BUN (6-23) mg/dl Creatinine (0.6-1.2) mg/dl Est Cr Clr Drug Dosing ml/min Est GFR ( Amer) ml/min Est GFR (Non-Af Amer) ml/min BUN/Creatinine Ratio (10-20) Glucose (70-99(Fasting)) mg/dl POC Glucose (70-99) mg/dl Calcium (8.5-10.1) mg/dl Magnesium (1.7-2.4) mg/dl Total Bilirubin (0.2-1.0) mg/dl AST (13-39) U/L ALT (7-52) U/L Alkaline Phosphatase (34-104) U/L Lactate Dehydrogenase 226 (86-244) U/L Total Creatine Kinase (26-192) U/L Total Protein (6.0-8.3) gm/dl Albumin (3.4-5.0) gm/dl Globulin (2.5-4.0) gm/dl Albumin/Globulin Ratio (0.9-2) TSH 0.973 (0.300-4.500) uIu/ml 07/23/22 07/23/22 07/23/22 Range/Units 06:44 06:44 06:44 WBC 10.10 (4.8-10.8) K/ul RBC 3.08 L (3.93-5.22) M/uL Hgb 8.5 L (12.0-16.0) g/dl Hct 27.0 L (34.1-44.9) % MCV 87.7 (80.0-100.0) fL MCH 27.6 (25.0-34.0) pg MCHC 31.5 L (32.0-36.0) g/dL RDW Std Deviation 44.4 (36.4-46.3) fL RDW Coeff of Yevgeniy 13.9 (11.5-14.5) % Plt Count 324 (130-400) K/uL MPV 12.1 (9.4-12.3) fL Immature Gran % (Auto) 5.0 % Neut % (Auto) 81.8 % Lymph % (Auto) 7.4 % Barrow % (Auto) 5.6 % Eos % (Auto) 0.0 % Baso % (Auto) 0.2 % Neut # (Auto) 8.25 H (1.4-6.5) K/uL Lymph # (Auto) 0.75 L (1.2-3.4) K/uL Barrow # (Auto) 0.57 (0.24-0.82) K/uL Eos # (Auto) 0.00 (0-0.50) K/uL Baso # (Auto) 0.02 (0-0.2) K/uL Immature Gran # (Auto) 0.51 H (0.00-0.02) K/uL Absolute Nucleated RBC 0.03 H (0-0) K/uL Nucleated RBC % (auto) 0.3 % Haptoglobin PT 50.8 H (9.0-12.0) Seconds INR 5.2 H (0.9-1.1) APTT 56.4 H* (21.0-31.0) Seconds PTT Ratio 2.1 Sodium 129 L (136-145) mmol/L Potassium 5.1 (3.5-5.1) mmol/L Chloride 100 (98-107) mmol/L Carbon Dioxide 24 (21-32) mmol/L Anion Gap 5 (3-11) BUN 49 H (6-23) mg/dl Creatinine 1.23 H (0.6-1.2) mg/dl Est Cr Clr Drug Dosing 42.7 ml/min Est GFR ( Amer) 48.7 ml/min Est GFR (Non-Af Amer) 42.0 ml/min BUN/Creatinine Ratio 39.8 H (10-20) Glucose 139 H (70-99(Fasting)) mg/dl POC Glucose (70-99) mg/dl Calcium 8.1 L (8.5-10.1) mg/dl Magnesium 2.1 (1.7-2.4) mg/dl Total Bilirubin 0.3 (0.2-1.0) mg/dl AST 31 (13-39) U/L ALT 20 (7-52) U/L Alkaline Phosphatase 267 H (34-104) U/L Lactate Dehydrogenase (86-244) U/L Total Creatine Kinase 25 L (26-192) U/L Total Protein 5.1 L (6.0-8.3) gm/dl Albumin 2.5 L (3.4-5.0) gm/dl Globulin 2.6 (2.5-4.0) gm/dl Albumin/Globulin Ratio 1.0 (0.9-2) TSH (0.300-4.500) uIu/ml 07/22/22 07/22/22 Range/Units 20:19 17:40 WBC (4.8-10.8) K/ul RBC (3.93-5.22) M/uL Hgb (12.0-16.0) g/dl Hct (34.1-44.9) % MCV (80.0-100.0) fL MCH (25.0-34.0) pg MCHC (32.0-36.0) g/dL RDW Std Deviation (36.4-46.3) fL RDW Coeff of Yevgeniy (11.5-14.5) % Plt Count (130-400) K/uL MPV (9.4-12.3) fL Immature Gran % (Auto) % Neut % (Auto) % Lymph % (Auto) % B[place] % (Auto) % Eos % (Auto) % Baso % (Auto) % Neut # (Auto) (1.4-6.5) K/uL Lymph # (Auto) (1.2-3.4) K/uL B[place] # (Auto) (0.24-0.82) K/uL Eos # (Auto) (0-0.50) K/uL Baso # (Auto) (0-0.2) K/uL Immature Gran # (Auto) (0.00-0.02) K/uL Absolute Nucleated RBC (0-0) K/uL Nucleated RBC % (auto) % Haptoglobin PT (9.0-12.0) Seconds INR (0.9-1.1) APTT (21.0-31.0) Seconds PTT Ratio Sodium 127 L (136-145) mmol/L Potassium 5.4 H (3.5-5.1) mmol/L Chloride 99 (98-107) mmol/L Carbon Dioxide 22 (21-32) mmol/L Anion Gap 6 (3-11) BUN 45 H (6-23) mg/dl Creatinine 1.24 H (0.6-1.2) mg/dl Est Cr Clr Drug Dosing 44.6 ml/min Est GFR ( Amer) 48.2 ml/min Est GFR (Non-Af Amer) 41.6 ml/min BUN/Creatinine Ratio 36.3 H (10-20) Glucose 177 H (70-99(Fasting)) mg/dl POC Glucose 154 H (70-99) mg/dl Calcium 8.3 L (8.5-10.1) mg/dl Magnesium (1.7-2.4) mg/dl Total Bilirubin (0.2-1.0) mg/dl AST (13-39) U/L ALT (7-52) U/L Alkaline Phosphatase (34-104) U/L Lactate Dehydrogenase (86-244) U/L Total Creatine Kinase (26-192) U/L Total Protein (6.0-8.3) gm/dl Albumin (3.4-5.0) gm/dl Globulin (2.5-4.0) gm/dl Albumin/Globulin Ratio (0.9-2) TSH (0.300-4.500) uIu/ml PG Care Time/CCT Total # of Minutes Spent Total Time Spent with Patient: Total time spent is greater than 50% in coordination of care (as documented) at patient's floor/unit and/or counseling patient: Coding Level of Care Code 82788 Subseq Hosp Care Lvl 3 Diagnoses COPD with acute exacerbation J44.1 Acute on chronic respiratory failure with hypoxia J96.21 Acute hyperkalemia E87.5 Acute hyponatremia E87.1 Anemia D50.9 Anemia type: iron deficiency Iron deficiency anemia type: unspecified iron deficiency Hypomagnesemia E83.42 Acute metabolic encephalopathy G93.41 Elevated troponin R77.8 Paroxysmal atrial fibrillation I48.0 DVT (deep venous thrombosis) I82.409 Diabetes mellitus E11.69; Z79.4 Diabetes mellitus complication status: with other specified complication Diabetes mellitus manager intermediate insulin use: with senior care use Diabetes mellitus type: type 2 Diabetic peripheral neuropathy associated with type 2 diabetes mellitus E11.42 Restless leg syndrome G25.81 Obstructive sleep apnea G47.33 Esophageal reflux K21.9 Dyslipidemia E78.5 (1) Diabetes mellitus Diabetes mellitus complication status: with other specified complication Diabetes mellitus senior care insulin use: with senior care use Diabetes mellitus type: type 2 Qualified Code(s): E11.69 - Type 2 diabetes mellitus with other specified complication; Z79.4 - skilled nursing (current) use of insulin (2) Anemia Anemia type: iron deficiency Iron deficiency anemia type: unspecified iron deficiency Qualified Code(s): D50.9 - Iron deficiency anemia, unspecified
[2022-07-23] MEDS: FUROSEMIDE 20 MG TAB PO SCH (19:33)
[2022-07-23] MEDS: LANTUS PER UNIT CHARGE SQ SCH (20:20)
[2022-07-23] MEDS: rOPINIRole HCL 1 MG TABLET PO SCH (20:22)
[2022-07-23] MEDS: LATANOPROST 0.005% OP SOLN 2.5 ML BTL OPR SCH (20:23)
[2022-07-23] MEDS: SIMVASTATIN 40 MG TAB PO SCH (20:23)
[2022-07-23] MEDS ORDERED: traMADol HCL 50 MG TABLET PO STA (21:48)
[2022-07-24] MEDS: ALBUTEROL 0.083% NEBU SOLN 3 ML VIAL NEB SCH ×4 (02:23→15:24)
[2022-07-24] MEDS: SODIUM ZIRCONIUM CYCLOSILICATE 10 GM PACKET PO SCH (05:41)
[2022-07-24] MEDS: BUDESONIDE 0.5 MG/2 ML VIAL (PULMICORT) NEB SCH (05:57)
[2022-07-24 08:03] LABS: Hematocrit (blood only) 26.4 % (34.1-44.9); Hemoglobin 8.3 g/dl (12.0-16.0); Mean Corpuscular Hemoglobin 27.9 pg (25.0-34.0); Mean Corpuscular Hgb Conc 31.4 g/dL (32.0-36.0); Mean Corpuscular Volume 88.6 fL (80.0-100.0); Mean Platelet Volume 12.5 fL (9.4-12.3); Nucleated RBC # (auto) 0.03 K/uL (0-0); Nucleated RBC % (auto) 0.3 %; Platelet Count 312 K/uL (130-400); RDW Standard Deviation 45.6 fL (36.4-46.3); Red Blood Count 2.98 M/uL (3.93-5.22); White Blood Count 11.03 K/ul (4.8-10.8)
[2022-07-24] MEDS: MAGNESIUM OXIDE 400 MG TAB PO SCH (08:22)
[2022-07-24] MEDS: guaiFENesin 600 MG TABCR PO SCH (08:22)
[2022-07-24] MEDS: CALCIUM CARBONATE 1250MG TAB PO SCH (08:23)
[2022-07-24] MEDS: FERROUS SULFATE 325 MG TAB PO SCH (08:23)
[2022-07-24] MEDS: ASCORBIC ACID 500 MG TAB PO SCH (08:23)
[2022-07-24] MEDS: CYANOCOBALAMIN (B-12) 500 MCG TABLET PO SCH (08:24)
[2022-07-24] MEDS: PANTOprazole 40 MG TAB PO SCH (08:24)
[2022-07-24] MEDS: FLUTICASONE/VILANTEROL 200/25MCG 14 PUFFS/INHALER INH SCH (08:24)
[2022-07-24] MEDS: CEROVITE ADV FORMULA TAB PO SCH (08:24)
[2022-07-24] MEDS: FUROSEMIDE 20 MG TAB PO SCH (08:24)
[2022-07-24] MEDS: TIMOLOL MALEATE 0.5% OP SOLN 5 ML BTL OPR SCH (08:24)
[2022-07-24] MEDS: CHOLECALCIFEROL 1,000 UNITS 25 MCG TAB PO SCH (08:24)
[2022-07-24] MEDS: UMECLIDINIUM BROMIDE 62.5MCG/BLISTER 7 PUFFS/INHALER INH SCH (08:25)
[2022-07-24 08:27] LABS: Basophils # (auto) 0.04 K/uL (0-0.2); Basophils % (auto) 0.4 %; Eosinophils # (auto) 0.01 K/uL (0-0.50); Eosinophils % (auto) 0.1 %; Immature Granulocytes # (auto) 0.78 K/uL (0.00-0.02); Immature Granulocytes % (auto) 7.1 %; Lymphocytes # (auto) 1.66 K/uL (1.2-3.4); Monocytes # (auto) 1.13 K/uL (0.24-0.82); Monocytes % (auto) 10.2 %; Neutrophils # (auto) 7.41 K/uL (1.4-6.5); Neutrophils % (auto) 67.2 %
[2022-07-24] MEDS: INSULIN ASPART PER UNIT SC SCH ×2 (08:28→12:44)
[2022-07-24 08:30] LABS: INR 4.7 (0.9-1.1); Partial Thromboplastin Ratio 1.9; Prothrombin Time 46.1 Seconds (9.0-12.0)
[2022-07-24 08:35] LABS: Partial Thromboplastin Time 51.7 Seconds (21.0-31.0)
[2022-07-24 08:51] LABS: Vitamin B12 > 1500 pg/ml (180-914)
[2022-07-24] MEDS ORDERED: predniSONE 20 MG TAB PO SCH (09:00)
[2022-07-24 09:31] LABS: BUN Creatinine Ratio 41.6 (10-20); Calcium 7.8 mg/dl (8.5-10.1); Creatinine Clr Calc Pharmacy 49.3 ml/min; Est GFR (African American) 53.9 ml/min; Est GFR (Non-African American) 46.5 ml/min; Magnesium 2.1 mg/dl (1.7-2.4)
--- NOTE | 2022-07-24 12:14 | Pharmacy Report ---
Pharmacy Glycemic Short Note 2 - Date of Service July 24, 2022 - Glycemic Short BSG Results (Last 24 hours): 07/23/22 07/23/22 07/24/22 16:32 20:05 06:53 Glucose 115 H POC Glucose 159 H 150 H 07/24/22 07/24/22 07:29 11:31 Glucose POC Glucose 115 H 111 H OUTPATIENT ANTIDIABETIC REGIMEN: * Lantus 10 units HS * Novolog 2-3 units with meals * metformin 1000 mg PO daily * HbA1C = 6.1 % (07/22/22) ASSESSMENT: 07/24 * Blood sugars at goal, steroids tapering down, loosen CR and decrease basal to prevent hypoglycemia. 07/22 * Ms Resendiz is a 76 y/o F with a PMH of T2DM who presents with SOB/COPD exacerbation. * Patient received Solu-Medrol 125 mg IV x 1 on 07/21 @ 0400 then started Solu- Medrol 40 mg IV q8 on 07/21. She received 3 doses. * BSGs yesterday were [id number] mg/dl. She received 15 units of insulin (10 units of basal and 5 units of bolus). * BSGs today are 177-176 mg/dL. * Solu-Medrol decreased to 40 mg IV q12 (2 doses today) then will change to prednisone 40 mg daily. * Continue current regimen as BSGs are reasonable. Revaluate tomorrow. PLAN FOR INPATIENT GLYCEMIC CONTROL: * Hold outpatient oral diabetes medications * Basal insulin * Lantus 8 units SQ HS * Bolus insulin * NovoLog per scale ACHS or Q6hrs while NPO * Goal Range: Low 110 mg/dL - High 140 mg/dL * Correction Factor: 30 mg/dL/unit * Nutritional / Prandial insulin per carb ratio of 1 unit per 7 grams CHO consumed
--- NOTE | 2022-07-24 15:25 | Discharge Summary ---
Date of Service July 24, 2022 Admission HPI Per Admitting Provider The patient is a 76-year-old female with a past medical history including COPD, osteoporosis, paroxysmal atrial fibrillation, long-term use of 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, DVT, infected hardware in left leg, peptic ulcer disease, anemia, diabetes mellitus, cardiac pacemaker, high-grade AV block, BPPV, SNHL, RLS, vitamin D deficiency, hypertension, GERD, mediastinal adenopathy, multiple pulmonary nodules, dyslipidemia, asthma and pernicious anemia. The patient presents to the emergency department with 2 weeks of worsening symptoms as noted above, in particular worsening over the past 24 hours. In the emergency department, the patient looks quite fatigued, and pulse ox on room air is in the upper 80s to low 90s. Principal Diagnosis COPD Exacerbation, Acute on chronic respiratory failure with hypoxia, Elevated PT/INR Hyponatremia, Hyperkalemia, Hypomagnesemia Discharge Exam Constitutional WD/WN, vitals as above Eyes + no PERRL (OD enucleated) ENMT external ear and nose normal, oropharynx normal Neck trachea midline, no thyromegaly Respiratory normal respiratory effort, lungs clear to auscultation Cardiovascular RRR, no murmur, no edema Chest (Breasts) Chest: normal inspection of chest Gastrointestinal (Abdomen) normal bowel sounds, soft, nontender, no hepatosplenomegaly Musculoskeletal Extremities: extremities normal to inspection; no cyanosis and no clubbing Skin no rashes, warm and dry Neurologic moves all extremities and awake; no focal motor deficits Psychiatric A+Ox3, euthymic affect Lymphatic no lymphedema Discharge Data Allergies Allergy/AdvReac Type Severity Reaction Status Date / Time No Known Allergies Allergy Verified 07/21/22 02:40 Consultations 07/21/22 04:29 ED Decision to Admit Stat Hospital Course (1) COPD with acute exacerbation: Patient is given by the ED the following: Magnesium sulfate 2 g IV, Solu-Medrol 125 mg IV, ceftriaxone 2 g IV, and azithromycin 500 mg IV. COVID-19 neg Procalcitonin negative and no consolidation on chest x-ray Much improved, on baseline O2, no wheezing -received Solu-Medrol and then switched to prednisone 60 mg p.o. daily--> go to 40mg tomorrow and taper down from there -continue Pulmicort Respules 0.5 mg inhaled twice daily -continue Albuterol HFA 2 puffs 4 times daily, and every 2 hours as needed -continue DuoNebs every 2 hours as needed -continue Guaifenesin extended release 1200 mg p.o. twice daily -completed 3 day course of Azithromycin 500 mg daily (2) Acute on chronic respiratory failure with hypoxia: Now resolved. At baseline oxygen saturation at this time of 2LNC (3) Acute hyperkalemia: Unclear what is driving her potassium to increase. No renal failure. No potassium supplementation. No potassium sparing diuretics. No evidence of rhabdo with normal CK It seems she typically is on lasix but this is not on her med list (but is prescribed as an outpatient) Really her kidneys appear to be doing a good job of getting rid of this therefore do not suspect nephrogenic in nature. Initially given Veltassa and now on Lokelma 10 g p.o. 3 times daily K+ now down to 5.1 Continue to monitor potassium daily Lower likelihood 2/2 adrenal crisis - see above -restart lasix but give lower dose 20mg daily -change diet to low K+ diet (4) Acute hyponatremia: Na+ 134 on arrival and went down to 127 over 48 hours Urine osmolality elevated at 516, with urine sodium severely low at < 10- indicative of either normal renal etiology of hypervolemia vs. edematous hyponatremia She examines relatively euvolemic although given her decreased oral intake suspect she is more hypovolemic No pulmonary edema on chest x-ray, low BNP leg swelling or JVD to suggest hypervolemia -received 1 L of normal saline @ 80ml/hr and Na+ up today to 129 -give another 2 L NS today -follow BMP in AM (5) Anemia: low at 8.5 but at baseline 8-10 normocytic check B12, folate, Fe studies in AM TSH normal continue FeSO4 (6) Hypomagnesemia: Mag level 1.1 on admission improved with replacement follow level in AM (7) Acute metabolic encephalopathy: resolved at this time ?Due to COPD exacerbation +/- hypomagnesemia and hyponatremia Hyponatremia and hyperkalemia obviously concerning for adrenal crisis however patient did not present in shock or hypotension however this remains in the differential especially if it occurs again since we are pseudo-treating this with corticosteroids. No known history of adrenal crisis Given this has improved will defer CT head - not taken on admission (8) Elevated troponin: Do not suspect acute coronary syndrome on admission. Troponin only mildly elevated on admission. No need to repeat this. (9) Paroxysmal atrial fibrillation: Currently in normal sinus rhythm Anticoagulation with warfarin as below (10) DVT (deep venous thrombosis): Recently held warfarin due to INR greater than 8-was given Vitamin K 10mg on 07/17 in [facility] thought to be due to recent APAP use and poor po intake after her eye surgery INR back down to 3.1 on day of admission and then was given her usual dose was given of 7.5 mg INR now back up again to 5.2 -suspect such an acute rise due to azithromycin and steroids -no bleeding -continue to hold coumadin PTT also high at 55 for unclear reasons -check PTT in AM and if remains elevated, check mixing studies (11) Diabetes mellitus: Hold metformin HbA1c 6.1 Appreciate pharmacy glycemic control during her inpatient admission glucose well controlled (12) Diabetic peripheral neuropathy associated with type 2 diabetes mellitus: noted (13) Restless leg syndrome: Continue ropinirole 1.5 mg at bedtime (14) Obstructive sleep apnea: Patient refuses CPAP (15) Esophageal reflux: Continue pantoprazole 40 mg daily (16) Dyslipidemia: Continue simvastatin 40 mg at bedtime (17) Elevated partial thromboplastin time (PTT): Plan VTE prophylaxis -supratherapeutic INR Disposition -continue on med telemetry pending improvement in sodium and potassium, PT/OT evals recommend return home. Hopeful for discharge to home tomorrow Home Health Attestation I certify that this patient is under my care and that I, or a physicians ass istant working with me, had a face to-face encounter that meets the home health [id number] encounter requirements with this patient. The encounter with the patient was in whole, or in part, for the following medical condition, which is the primary reason for home health care (list medical condition): I certify that, based on my findings, the following services are medically necessary home health services: My clinical findings support the need for the above services because: Further, I certify that my clinical findings support that this patient is homebound (i.e. absences from home require considerable and taxing effort and are for medical reasons or buddhism services or infrequently or of short duration when for other reasons) because: Certification for Home Health Services: Based on the above findings, I certify that this patient is confined to the home and needs intermittent residential care, physical therapy and/or speech therapy or continues to need occupational therapy. The patient is under my care, and I have initiated the establishment of the plan of care. This patient will be followed by a physician who will periodically review the plan of care. Discharge Plan Discharge Items Patient Disposition: Home - Home Health Services Reason For Visit: ACUTE RESP FAILURE W/ HYPOXIA, COPD EXACERBATION Discharge Diagnosis: COPD Exacerbation, Acute on chronic respiratory failure with hypoxia, Elevated PT/INR Hyponatremia, Hyperkalemia, Hypomagnesemia Condition on Discharge: Good Activity: As commented below Bathing: No limitations Exercise/Sports: Gradually increase as tolerated Weightbearing: Full weightbearing Non-emergency contact: Primary Care Provider Call non-emergency contact if: you have any medication questions and your symptoms worsen Follow-up/Referrals: Jean Beach MD [Primary Care Provider] - (Follow up within 1-2 weeks) Rosenda Moran MD, PhD [Pathologist] - (Dr. Moran's office will reach out to you on Thursday about your coumadin instructions) Diet: Carb Consistent or DM2 and Heart Healthy Ambulatory Orders: Basic Metabolic Panel (Routine) Timeframe: 4 Days Location: Determined by Patient Ordered By: Christie Flores Prothrombin Time INR (Routine) Timeframe: 4 Days Location: Determined by Patient Ordered By: Christie Flores Partial Thromboplastin Time (Routine) Timeframe: 4 Days Location: Determined by Patient Ordered By: Christie Flores Addtl Attending Provider Instructions: Please finish out 3 more days of prednisone once daily for your COPD exacerbation. Continue on your usual amount of oxygen. Your PT/INR is still quite high and you should continue to NOT TAKE YOUR COUMADIN. Please have blood work checked at the lab on Thursday to check your PT/INR as well as your sodium and potassium levels.Dr. Moran will let you know what to do with your coumadin at that time. Your PCP can review your sodium and potassium levels and make sure they are still remaining normal. Pending Studies at Discharge: No Stand-Alone Forms: My H.BLOOM, Smoking Cessation Medications and DC Order Prescriptions: New magnesium oxide 400 mg (241.3 mg magnesium) Tablet 400 mg PO BID Qty: 60 0RF Rx Instructions: OTC furosemide 20 mg Tablet 20 mg PO QAM Qty: 30 0RF prednisone 20 mg Tablet 40 mg PO QAM 3 Days Qty: 6 0RF Continued latanoprost [Xalatan] 0.005 % drops 1 drp OPR HS Rx Instructions: 1 drop right eye daily at bedtime Alphagan P 0.1 % drops 1 drp ophthalmic (eye) BID Rx Instructions: 1 drop right eye twice daily timolol maleate 0.5 % drops 1 drp ophthalmic (eye) BID Rx Instructions: 1 drop right eye twice daily zoledronic [id number]-nskid [Reclast] 5 mg/100 mL piggyback 1 ea IV YEARLY Rx Instructions: last dose November 2021 umeclidinium 62.5 mcg/actuation blister with device 62.5 mcg Inhalation DAILY Qty: 90 3RF albuterol sulfate [Ventolin HFA] 90 mcg/actuation HFA aerosol inhaler 2 puff INHALATION Q4H PRN (Reason: Shortness Of Breath Or Wheezing) Qty: 3 3RF simvastatin 40 mg tablet 40 mg PO HS Qty: 90 3RF (DME) lancets [OneTouch Delica Lancets] 33 gauge misc See Rx Instructions .Route Qty: 200 3RF Rx Instructions: Test blood sugars twice a day fluticasone propion-salmeterol [Advair Diskus] 250-50 mcg/dose blister with device 1 inh inhalation BID Qty: 60 5RF Rx Instructions: WITH A RINSE OF MOUTH AFTERWARDS. cholecalciferol (vitamin D3) 25 mcg (1,000 unit) capsule 1,000 unit PO DAILY Qty: 30 0RF insulin aspart U-100 [Novolog Flexpen U-100 Insulin] 100 unit/mL (3 mL) insulin pen 2 - 3 unit subcut UD Rx Instructions: Inject as directed meals by Endocrinology for high blood sugar Lantus Solostar U-100 Insulin 100 unit/mL (3 mL) insulin pen 10 unit SUBCUT HS ferrous sulfate 325 mg (65 mg iron) tablet 325 mg PO DAILY calcium carbonate [Calcium 600] 600 mg calcium (1,500 mg) tablet 600 mg PO BID cyanocobalamin (vitamin B-12) 1,000 mcg capsule 1,000 mcg PO DAILY multivitamin Tablet 1 tab PO DAILY acetaminophen 500 mg tablet 1,000 mg PO DIRECTED PRN (Reason: headache) ascorbic acid (vitamin C) 500 mg tablet 1 g PO DAILY PreserVision AREDS-2 250-90-40-1 mg Capsule 1 tab PO DAILY pantoprazole 40 mg tablet,delayed release (DR/EC) 40 mg PO DAILY Rx Instructions: TAKE 1 TABLET DAILY metformin 1,000 mg tablet 1,000 mg PO DAILY Rx Instructions: TAKE 1 TABLET DAILY ropinirole 0.5 mg tablet 1.5 mg PO HS Rx Instructions: TAKE 3 TABLETS (1.5 MG) AT BEDTIME Discontinued warfarin 5 mg tablet See Rx Instructions PO UD Rx Instructions: ON HOLD7.5mg q MWF, 10mg x 4 days per [facility] PO use as directed; amoxicillin 500 mg tablet 500 mg PO BID Qty: 30 0RF Discharge Orders: Discharge Order (Routine); Ordered 07/24/22 Ordered By: Christie Flores Admission Data Admit Date/Time: 07/21/22 04:29 Attending Provider: Christie Flores Admit Provider: Len Hoskins Primary Care Provider: Jean Beach Other Providers: Len Hoskins ; [facility] Coding Diagnoses COPD with acute exacerbation J44.1 Acute on chronic respiratory failure with hypoxia J96.21 Acute hyperkalemia E87.5 Acute hyponatremia E87.1 Anemia D50.9 Anemia type: iron deficiency Iron deficiency anemia type: unspecified iron deficiency Hypomagnesemia E83.42 Acute metabolic encephalopathy G93.41 Elevated troponin R77.8 Paroxysmal atrial fibrillation I48.0 DVT (deep venous thrombosis) I82.409 Diabetes mellitus E11.69; Z79.4 Diabetes mellitus complication status: with other specified complication Diabetes mellitus senior living insulin use: with senior living use Diabetes mellitus type: type 2 Diabetic peripheral neuropathy associated with type 2 diabetes mellitus E11.42 Restless leg syndrome G25.81 Obstructive sleep apnea G47.33 Esophageal reflux K21.9 Dyslipidemia E78.5 Elevated partial thromboplastin time (PTT) R79.1
[2022-07-24] MEDS ORDERED: LANTUS PER UNIT CHARGE SQ SCH (21:00)
== END 2022-07-24 17:14 | disposition home health service (06) | DRG 190 ==
LOC: ED 02:10 → EDINP 04:29 → SUATTDRO 04:29 → 2N 14:45

== ENCOUNTER 2024-10-02 09:08 | Inpatient (IN) ==
--- NOTE | 2024-10-02 09:27 | Emergency Department Note ---
Impression & Plan Pneumonia, SOB (shortness of breath), Infection due to human metapneumovirus (hMPV), Failure of outpatient treatment, Pedal edema, Anemia ED Provider Note NAME: HANNAH SUTTON AGE: 79 SEX: F : 1945 ARRIVES VIA: Ambulance INFORMANT: [Patient][ems] ED PROVIDER(S): [Yonathan Miramontes MD] CHIEF COMPLAINT: Short of breath HISTORY OF PRESENT ILLNESS: The patient is an 79-year-old female with a history of COPD. She has been sick with a cough and shortness of breath for 3 weeks. Her outpatient provider ordered doxycycline and prednisone. She took these without improvement. She was seen in the ED 9 days ago and diagnosed with human metapneumovirus and pneumonia. She was given cefdinir and discharged. The patient states that she is out of her medications and she feels no better in fact, she thinks she is worse. She is still short of breath. She has been increasing her O2 use from 2 L to 3. There has been no fever, there has been no vomiting or diarrhea. She does note some increasing pedal edema as well as some increasing fatigue and weakness. Because of how she was feeling, she presents for evaluation. PMHx/PSHx/Social Hx: See Below PHYSICAL EXAM: GENERAL: Patient is in no acute distress. HEENT: No acute trauma, normocephalic atraumatic, mucous membranes moist, no nasal congestion. NECK: No stridor, no adenopathy, no meningismus, trachea is midline. LUNGS: Diminished breath sounds bilaterally with some occasional wheezing. There are rhonchi/crackles on the left. Wet cough noted. HEART: Without murmurs gallops or rubs, regular rate and rhythm. Heart tones distant ABDOMEN: Soft, nontender, no peritonitis. EXTREMITIES: No cyanosis, full range of motion of all the joints without pain or difficulty. Mild bilateral pedal edema. NEUROLOGIC: Oriented x 3, no acute motor or sensory deficits, no focal weakness. SKIN: No jaundice, no diaphoresis. DIFFERENTIAL DIAGNOSIS: Failed outpatient management, pneumonia, bronchitis, CHF, IN, anemia, among others. EMERGENCY DEPARTMENT PROCEDURES: MEDICAL DECISION MAKING: There is no leukocytosis. The patient is anemic however, the patient carries a history of anemia. There is a normal platelet count. No coagulopathy. VBG does not show acidosis, there was some mild CO2 retention however, this is likely chronic. There was no renal failure or significant electrolyte abnormality. Lactic acid level was not elevated making sepsis less likely. No concerning liver enzyme elevation. BNP was slightly elevated however, the value was improved compared to some recent testing. Urinalysis did not show findings of infection. Chest x-ray does show a bilateral lower lung pneumonia. On exam, the patient was wheezing with rhonchi, the rhonchi were especially noted on the left. The patient presents with 3 weeks of symptoms. At this point, she has failed outpatient management. She continues to worsen despite treatment provided outpatient. The patient received IV Zosyn as antibiotic coverage. She was given IV Solu- Medrol, she received a dose of IV Lasix. She was given a DuoNeb. Patient is going to be hospitalized for her pneumonia, human metapneumovirus infection, COPD flare and dyspnea. I did speak with the patient at length, I spoke with case management, the on-call hospitalist was consulted. Prior/Outside records/notes reviewed: Today's EMS notes describing her presentation and transport to this hospital. ECG per my interpretation: Indication was shortness of breath. The ECG shows a sinus rhythm with a first-degree AV block. There is a right bundle branch block. The rate is 88. There is no acute ST elevation, no PVCs. The QTc is 474. Compared to an ECG from 09/23/2024, PVCs are no longer present. Continuous Cardiac Monitoring per my interpretation: An order was placed for continuous cardiac monitoring. The monitor shows a rate of 91 with normal sinus rhythm. Imaging/x-ray results per my interpretation: Chest x-ray shows a bilateral patchy lower lung pneumonia. Chronic Medical/Social conditions affecting care: Advanced age, history of COPD with chronic O2 use. Care/Management discussed with: Case management and the on-call hospitalist. Level of care consideration(s): After review of the information above and other included data: --I believe the patient requires escalation of care to admission DISPOSITION: Admission Past Med/Surg History Problem List (Updated 10/02/24 @ 16:25 by Yonathan Miramontes MD) Anemia (Acute) Pedal edema (Acute) Failure of outpatient treatment (Acute) Infection due to human metapneumovirus (hMPV) (Acute) SOB (shortness of breath) (Acute) Pneumonia (Acute) Bilateral pneumonia COPD exacerbation LLL pneumonia (Acute) Swelling (Acute) Cough (Acute) Human metapneumovirus pneumonia (Acute) COPD with exacerbation Leg swelling Dyspnea Severe aortic stenosis Systolic murmur Right calf pain COPD (chronic obstructive pulmonary disease) Asthma (Chronic) Type 2 diabetes mellitus, with long-term current use of insulin (Chronic) Selective deficiency of IgG (Chronic) Pernicious anemia (Chronic) Mediastinal adenopathy (Chronic) Iron deficiency anemia secondary to inadequate dietary iron intake High-grade 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 Chronic respiratory failure with hypoxia Infected hardware in left leg rn long term care (current) use of 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 (Chronic) Paroxysmal atrial fibrillation Osteoporosis Nephrolithiasis Diabetic peripheral 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) Restless leg syndrome (Chronic) Vitamin D deficiency Obstructive sleep apnea (Chronic) Refuses device per records Multiple pulmonary nodules (Chronic) HTN (hypertension) (Chronic) Esophageal reflux (Chronic) Dyslipidemia (Chronic) Medical History SNHL (sensorineural hearing loss) BPPV (benign paroxysmal positional vertigo) On home O2 2 LPM continuous Osteoarthritis History of DVT (deep vein thrombosis) RLE post op (approximtely 2 years ago) Taking Xarelto Insomnia Peptic ulcer disease Hx of fracture of femur Surgical History History of lithotripsy History of eye removal History of appendectomy History of esophagogastroduodenoscopy (EGD) History of colonoscopy History of open reduction and internal fixation (ORIF) procedure History of tooth extraction History of removal of skin mole History of carpal tunnel release of both wrists Hx of colonoscopy History of bronchoscopy Hx of cataract extraction Hx of eye surgery H/O total hip arthroplasty Hx of total knee arthroplasty History of tonsillectomy and adenoidectomy Hx of cholecystectomy H/O: hysterectomy Family History (Updated 07/26/24 @ 08:59 by Dayana Jenkins) Father Cardiovascular disease Diabetes Asthma Heart disease Brother Diabetes Cardiac disorder Mother Breast cancer Other Hypertension No family history of adverse response to anesthesia No family history of bleeding disorder Denies family history of Ovarian cancer Prostate cancer Myocardial infarction Colorectal cancer Social History Smoking Status: Never smoker Second Hand Exposure: Yes; Do You Dip or Chew Tobacco: No; Tobacco Cessation Education Requested by Patient: No Hx Alcohol Use: No Hx Substance Use: No Preferred Language: Tongan Communication Ability: Effective Grades 1 Thru 5 Teacher Required: No Beliefs That Will Affect Care: None marital status: Current Living Situation: Spouse current occupational status: retired Other Information That Helps Us Care for You: No Feels Safe at Home: Yes Safety Concerns: Feels Safe At This Time Diet: regular Dental Care, Regularly: No Physical Activity Frequency: Does not Exercise Seatbelt Use: always Sunscreen Use: No Assistive Devices: Walker Allergies Allergies Allergy/AdvReac Type Severity Reaction Status Date / Time No Known Drug Allergies Allergy Verified 10/02/24 12:11 Home Meds Home Medications Medication Instructions Recorded Confirmed multivitamin 1 tab PO QAM 04/18/21 10/02/24 vit C 250 mg-vit E 90 mg-zinc 40 1 tab PO BID 07/21/22 10/02/24 mg-copper 1 is-peknxa-kxrmfj capsule (PreserVision AREDS-2) insulin glargine 100 unit/mL (3 8 unit subcut 06/24/23 10/02/24 mL) subcutaneous pen (Lantus Solostar U-100 Insulin) lactobacillus combination no.9 4 4,000 mmu cells PO QPM 06/24/23 10/02/24 billion cell capsule (Adult 50 Plus Probiotic) ascorbic acid (vitamin C) 1,000 mg 1,000 mg PO DAILY 08/21/23 10/02/24 capsule docusate sodium 100 mg tablet 100 mg PO DAILY 08/21/23 10/02/24 (Stool Softener) cyanocobalamin (vitamin B-12) 1,000 mcg PO 2XWK 02/08/24 10/02/24 1,000 mcg capsule ferrous sulfate 325 mg (65 mg 325 mg PO 3XWK 02/08/24 10/02/24 iron) tablet albuterol sulfate 90 mcg/actuation 2 puff inhalation Q4H PRN 10/02/24 10/02/24 aerosol inhaler (Ventolin HFA) Shortness Of Breath Or Wheezing pantoprazole 40 mg tablet,delayed 40 mg PO QAM 10/02/24 10/02/24 release ropinirole 0.5 mg tablet 1.5 mg PO HS 10/02/24 10/02/24 simvastatin 40 mg tablet 40 mg PO HS 10/02/24 10/02/24 Previous Rx's Medication Instructions Recorded magnesium oxide 400 mg (241.3 mg 400 mg PO BID #60 tabs 07/24/22 magnesium) tablet lancets 33 gauge #200 ea 03/06/23 pen needle, diabetic 31 gauge x #200 ea 09/15/23 3/16" (UltiCare Pen Needle) nystatin-triamcinolone 100,000 1 applic topical TID PRN Unknown 01/07/24 unit/gram-0.1 % topical ointment #180 grams amoxicillin 500 mg tablet 500 mg PO BID #60 tabs 02/22/24 insulin aspart U-100 100 unit/mL See Rx Instructions subcut 03/04/24 (3 mL) subcutaneous pen (Novolog .COMPLEX #30 mL FlexPen U-100 Insulin aspart) mepolizumab 100 mg/mL subcutaneous See Rx Instructions subcut 03/17/24 auto-injector (Nucala) .COMPLEX #1 mL blood sugar diagnostic (OneTouch #300 ea 05/09/24 Verio test strips) fluticasone propionate 50 1 spray intranasal BID #18.2 mL 05/24/24 mcg/actuation nasal spray,suspension (Flonase Allergy Relief) sodium chloride, sodium See Rx Instructions .Route 05/24/24 bicarb-nasal rinse squeeze bottle .COMPLEX #50 ea with packet (Neilmed Sinus Rinse Complete with packet) metformin 1,000 mg tablet 1,000 mg PO QAM #90 tabs 06/09/24 ensifentrine 3 mg/2.5 mL 3 mg (2.5 mL) inhalation BID #150 07/18/24 suspension for nebulization mL (Ohtuvayre) ipratropium 0.5 mg-albuterol 3 mg 3 ml inhalation QID PRN shortness 07/18/24 (2.5 mg base)/3 mL nebulization of breath or wheezing #360 mL soln budesonide 160 mcg-glycopyr 9 2 inh inhalation BID #10.7 grams 07/28/24 mcg-formot 4.8 mcg/actuation HFA inhaler (Breztri Aerosphere) rivaroxaban 10 mg tablet (Xarelto) 10 mg PO QPM #90 tabs 08/29/24 furosemide 20 mg tablet 20 mg PO QAM #30 tabs 09/16/24 Results & Data (ED) Vital Signs Vital Signs - 24 hr 10/02/24 09:16 10/02/24 09:16 10/02/24 09:16 Temperature 36.7 C Temperature Source Oral Pulse Rate 89 Pulse Rate [Left Apical] Pulse Rate from SpO2 Sensor Respiratory Rate 18 Respiratory Effort / Characteristics Non-Labored Respiratory Depth Normal Respiratory Pattern Blood Pressure 157/60 H 157/60 H Blood Pressure [Right Arm] Blood Pressure Mean 92 107 Blood Pressure Mean [Right Arm] Pulse Oximetry 96 Oxygen Delivery Method Nasal Cannula Nasal Cannula Oxygen Flow Rate 3 3 Sepsis Recent Fever Within 48 Hours No Sepsis New/Unexplained Change in Mental Status No Sepsis Action Taken by Nursing No Action Required Oxygen Flow Rate - Titration Pulse Oximetry Post Tiitration 10/02/24 09:23 10/02/24 09:23 10/02/24 09:36 Temperature Temperature Source Pulse Rate 87 89 Pulse Rate [Left Apical] Pulse Rate from SpO2 Sensor 89 Respiratory Rate 20 Respiratory Effort / Characteristics Respiratory Depth Respiratory Pattern Blood Pressure Blood Pressure [Right Arm] Blood Pressure Mean Blood Pressure Mean [Right Arm] Pulse Oximetry 96 98 Oxygen Delivery Method Nasal Cannula Oxygen Flow Rate 3 Sepsis Recent Fever Within 48 Hours Sepsis New/Unexplained Change in Mental Status Sepsis Action Taken by Nursing Oxygen Flow Rate - Titration Pulse Oximetry Post Tiitration 10/02/24 10:00 10/02/24 10:12 10/02/24 11:27 Temperature Temperature Source Pulse Rate 90 Pulse Rate [Left Apical] 85 Pulse Rate from SpO2 Sensor 90 Respiratory Rate 19 20 Respiratory Effort / Characteristics Spontaneous Short of Breath Respiratory Depth Normal Respiratory Pattern Regular Blood Pressure Blood Pressure [Right Arm] 131/70 Blood Pressure Mean Blood Pressure Mean [Right Arm] 90 Pulse Oximetry 100 100 95 Oxygen Delivery Method Room Air Nebulizer Nasal Cannula Oxygen Flow Rate 6 2 Sepsis Recent Fever Within 48 Hours Sepsis New/Unexplained Change in Mental Status Sepsis Action Taken by Nursing Oxygen Flow Rate - Titration 2 Pulse Oximetry Post Tiitration 97 10/02/24 11:33 10/02/24 11:48 Temperature Temperature Source Pulse Rate 94 H 93 H Pulse Rate [Left Apical] Pulse Rate from SpO2 Sensor Respiratory Rate 19 21 Respiratory Effort / Characteristics Respiratory Depth Respiratory Pattern Blood Pressure Blood Pressure [Right Arm] Blood Pressure Mean Blood Pressure Mean [Right Arm] Pulse Oximetry 94 94 Oxygen Delivery Method Nasal Cannula Nasal Cannula Oxygen Flow Rate 2 2 Sepsis Recent Fever Within 48 Hours Sepsis New/Unexplained Change in Mental Status Sepsis Action Taken by Nursing Oxygen Flow Rate - Titration Pulse Oximetry Post Tiitration Home Medications Current Medication List: was personally reviewed by me Laboratory Data Attestation: I reviewed the patient's lab results. 10/02/24 09:53 10/02/24 09:53 Lab Results 10/02/24 10/02/24 10/02/24 Range/Units 09:53 10:30 10:52 WBC 7.89 (4.8-10.8) K/ul RBC 3.06 L (4.20-5.40) M/uL Hgb 8.4 L (12.0-16.0) g/dl Hct 27.8 L (37.0-47.0) % MCV 90.8 (80.0-100.0) fL MCH 27.5 (25.0-34.0) pg MCHC 30.2 L (32.0-36.0) g/dL RDW Std Deviation 47.3 H (36.4-46.3) fL RDW Coeff of Yevgeniy 14.3 (11.5-14.5) % Plt Count 269 (130-400) K/uL MPV 11.7 (9.4-12.4) fL Immature Gran % (Auto) 0.5 % Neut % (Auto) 73.3 % Lymph % (Auto) 18.5 % [place] % (Auto) 5.2 % Eos % (Auto) 1.9 % Baso % (Auto) 0.6 % Neut # (Auto) 5.78 (1.40-6.50) K/uL Lymph # (Auto) 1.46 (1.20-3.40) K/uL [place] # (Auto) 0.41 (0.11-0.59) K/uL Eos # (Auto) 0.15 (0.00-0.50) K/uL Baso # (Auto) 0.05 (0.00-0.20) K/uL Immature Gran # (Auto) 0.04 (0.01-0.20) K/uL PT 11.4 (9.0-12.0) Seconds INR 1.1 (0.9-1.1) APTT 27 (21-31) Seconds PTT Ratio 1.0 VBG pH 7.43 H (7.36-7.41) VBG pCO2 59 H (38-50) mmHg VBG pO2 39 mmHg VBG HCO3 39 mmol/L VBG O2 Saturation 64.3 % VBG Base Excess 12.3 mEq/L Sodium 142 (136-145) mmol/L Potassium 4.2 (3.5-5.1) mmol/L Chloride 99 (98-107) mmol/L Carbon Dioxide 36 H (21-32) mmol/L Anion Gap 7 (3-11) BUN 16 (6-23) mg/dl Creatinine 0.96 (0.6-1.2) mg/dl Est Cr Clr Drug Dosing 52.3 ml/min eGFR 59.44 BUN/Creatinine Ratio 16.7 (10-20) Glucose 120 H (70-99(Fasting)) mg/dl Lactate 0.8 (0.4-2.0) mmol/L Calcium 9.2 (8.6-10.3) mg/dl Magnesium 1.7 (1.7-2.4) mg/dl Total Bilirubin 0.7 (0.2-1.0) mg/dl AST 14 (13-39) U/L ALT 9 (7-52) U/L Alkaline Phosphatase 46 (34-104) U/L Troponin I High Sens 18.9 H (0-14) pg/ml B-Natriuretic Peptide 166 H (0-100) pg/ml Total Protein 5.9 L (6.0-8.3) gm/dl Albumin 3.5 (3.4-5.0) gm/dl Globulin 2.4 L (2.5-4.0) gm/dl Albumin/Globulin Ratio 1.5 (0.9-2) Procalcitonin 0.09 (0-0.5) ng/ml Urine Color Yellow Urine Appearance Clear (Clear) Urine pH 7.5 (4.5-7.5) Ur Specific [place] 1.015 (1.000-1.030) Urine Protein 1+ H (Negative) Urine Glucose (UA) Negative (Negative) Urine Ketones Negative (Negative) Urine Blood Negative (Negative) Urine Nitrite Negative (Negative) Urine Bilirubin Negative (Negative) Urine Urobilinogen Negative (Negative) Ur Leukocyte Esterase Negative (Negative) Urine WBC (Auto) 0-5 (0-5) /hpf Urine RBC (Auto) 0-2 (0-2) /hpf U Hyaline Cast (Auto) 0-2 (0-2) /lpf U Epithel Cells (Auto) 0-2 (0-2) /hpf Urine Bacteria (Auto) None Seen (None Seen) Administered Medications Albuterol (Albut/Ipratrop 3mg/0.5mg Neb 3 Ml Vial) 3 ml NEB Q4H CRISTINA; Protocol Stop: 11/01/24 14:07 Last Admin: 10/02/24 15:05 Dose: 3 ml Documented By: JESIKA Azithromycin (Azithromycin 250 Mg Tab) 500 mg PO Q24H CRISTINA Stop: 10/04/24 14:09 Last Admin: 10/02/24 14:56 Dose: 500 mg Documented By: LINCOLN Ceftriaxone Sodium (Rocephin) 2,000 mg in 50 mls @ 100 mls/hr IV Q24H [facility] Stop: 10/07/24 14:29 Last Infusion: 10/02/24 15:37 Dose: Infused Documented By: Admin: 10/02/24 15:03 Dose: 100 mls/hr Documented By: LINCOLN Insulin Aspart (Insulin Aspart Per Unit Charge) 0 units SC ACHS [facility] Stop: 11/01/24 14:29 Last Admin: 10/02/24 14:30 Dose: Not Given Documented By: LINCOLN Miscellaneous (Ohtuvayre Nebs--Order Awaiting Action) 1 each N/A QS [facility] Stop: 11/01/24 15:59 Last Admin: 10/02/24 15:37 Dose: Not Given Documented By: LINCOLN Discontinued Medications Albuterol (Albut/Ipratrop 3mg/0.5mg Neb 3 Ml Vial) 3 ml NEB NOW STA; Protocol Stop: 10/02/24 09:24 Last Admin: 10/02/24 09:52 Dose: 3 ml Documented By: YOGESH Furosemide (Furosemide 40 Mg/4 Ml Vial) 40 mg IV ONE ONE Stop: 10/02/24 10:14 Last Admin: 10/02/24 10:25 Dose: 40 mg Documented By: YOGESH Piperacillin Sod/Tazobactam Sod (Zosyn) 4.5 gm in 100 mls @ 200 mls/hr IV NOW ONE Stop: 10/02/24 09:52 Last Infusion: 10/02/24 10:00 Dose: Infused Documented By: Admin: 10/02/24 09:53 Dose: 200 mls/hr Documented By: YOGESH Methylprednisolone (Methylprednisolone 125 Mg/2 Ml Vial) 60 mg IV NOW STA Stop: 10/02/24 09:24 Last Admin: 10/02/24 09:53 Dose: 60 mg Documented By: YOGESH Imaging Data Radiologist's Impression: Chest X-Ray 10/02/24 09:14 XR chest 1V portable CLINICAL HISTORY: Dyspnea TECHNIQUE: Single frontal radiograph of the chest was obtained. Comparison: Comparison is made to chest radiograph 09/23/2024 FINDINGS: An implanted pacemaker is seen. The cardiomediastinal silhouette is stable. Right greater than left lower lung airspace opacity is seen. No evidence of pleural effusion or pneumothorax. IMPRESSION: Right greater than left lower lung airspace opacity. This may represent atelectasis, pneumonia, and/or aspiration. This is increased from prior exam. ACT 112: Negative or not required by law. Electronically signed by: Mak Edge M.D. 10/02/2024 10:45 AM Discharge Plan Visit Data Chief Complaint: Shortness of Breath/Dyspnea Stated Complaint: short of breath ED Provider: Yonathan Miramontes Discharge Problem: Pneumonia, SOB (shortness of breath), Infection due to human metapneumovirus (hMPV), Failure of outpatient treatment, Pedal edema, Anemia Patient Disposition: Admitted As Inpatient Condition: Fair Discharge Instructions Interventions: ED Discharge Assessment Last Done: 10/02/24 13:13 Discharge Problem: Pneumonia Qualifiers: Pneumonia type: due to unspecified organism Laterality: bilateral Lung location: lower lobe of lung Qualified Code(s): J18.9 - Pneumonia, unspecified organism Anemia Qualifiers: Anemia type: unspecified type Qualified Code(s): D64.9 - Anemia, unspecified
[2024-10-02] MEDS: ALBUT/IPRATROP 3MG/0.5MG NEB 3 ML VIAL NEB STA (09:52)
[2024-10-02] MEDS: methylPREDNISolone 125 MG/2 ML VIAL IV STA (09:53)
[2024-10-02] MEDS: PIPERACILLIN/TAZOBACTAM 4.5 GM/100 ML BAG IV ONE (09:53)
[2024-10-02 10:07] LABS: Base Excess VBG 12.3 mEq/L; HCO3 VBG 39 mmol/L; Oxygen Saturation VBG 64.3 %; PCO2 VBG 59 mmHg (38-50); PO2 VBG 39 mmHg; pH VBG 7.43 (7.36-7.41)
[2024-10-02 10:13] LABS: Basophils # (auto) 0.05 K/uL (0.00-0.20); Basophils % (auto) 0.6 %; Eosinophils # (auto) 0.15 K/uL (0.00-0.50); Eosinophils % (auto) 1.9 %; Hematocrit (blood only) 27.8 % (37.0-47.0); Hemoglobin 8.4 g/dl (12.0-16.0); Immature Granulocytes # (auto) 0.04 K/uL (0.01-0.20); Immature Granulocytes % (auto) 0.5 %; Lymphocytes # (auto) 1.46 K/uL (1.20-3.40); Lymphocytes % (auto) 18.5 %; Mean Corpuscular Hemoglobin 27.5 pg (25.0-34.0); Mean Corpuscular Hgb Conc 30.2 g/dL (32.0-36.0); Mean Corpuscular Volume 90.8 fL (80.0-100.0); Mean Platelet Volume 11.7 fL (9.4-12.4); Monocytes # (auto) 0.41 K/uL (0.11-0.59); Monocytes % (auto) 5.2 %; Neutrophils # (auto) 5.78 K/uL (1.40-6.50); Neutrophils % (auto) 73.3 %; Platelet Count 269 K/uL (130-400); RDW Coefficient of Variation 14.3 % (11.5-14.5); RDW Standard Deviation 47.3 fL (36.4-46.3); Red Blood Count 3.06 M/uL (4.20-5.40); White Blood Count 7.89 K/ul (4.8-10.8)
[2024-10-02] MEDS: FUROSEMIDE 40 MG/4 ML VIAL IV ONE (10:25)
[2024-10-02 10:34] LABS: Albumin Level 3.5 gm/dl (3.4-5.0); Bilirubin,Total 0.7 mg/dl (0.2-1.0); Calcium 9.2 mg/dl (8.6-10.3); Magnesium 1.7 mg/dl (1.7-2.4); Potassium 4.2 mmol/L (3.5-5.1)
[2024-10-02 10:40] LABS: Albumin Globulin Ratio 1.5 (0.9-2); BUN Creatinine Ratio 16.7 (10-20); Creatinine Clr Calc Pharmacy 52.3 ml/min; Globulin 2.4 gm/dl (2.5-4.0); Total Protein 5.9 gm/dl (6.0-8.3)
[2024-10-02 10:41] LABS: INR 1.1 (0.9-1.1); Partial Thromboplastin Time 27 Seconds (21-31); Prothrombin Time 11.4 Seconds (9.0-12.0)
[2024-10-02 10:43] LABS: Troponin I High Sensitivity 18.9 pg/ml (0-14)
[2024-10-02 10:45] LABS: Appearance Urine Clear (Clear); Bacteria Urine Automated None Seen (None Seen); Bilirubin Urine Negative (Negative); Blood Urine Negative (Negative); Cast Urine Automated 0-2 /lpf (0-2); Color Urine Yellow; Epithelial Cell Urine Auto 0-2 /hpf (0-2); Glucose Urine UA Negative (Negative); Ketones Urine Negative (Negative); Leukocyte Esterase Urine Negative (Negative); Nitrite Urine Negative (Negative); Protein Urine 1+ (Negative); RBC Urine Automated 0-2 /hpf (0-2); Specific Gravity Urine 1.015 (1.000-1.030); Urobilinogen Urine Negative (Negative); WBC Urine Automated 0-5 /hpf (0-5); pH Urine 7.5 (4.5-7.5)
--- NOTE | 2024-10-02 10:47 | XRay Report ---
XR chest 1V portable CLINICAL HISTORY: Dyspnea TECHNIQUE: Single frontal radiograph of the chest was obtained. Comparison: Comparison is made to chest radiograph 09/23/2024 FINDINGS: An implanted pacemaker is seen. The cardiomediastinal silhouette is stable. Right greater than left l ower lung airspace opacity is seen. No evidence of pleural effusion or pneumothorax. IMPRESSION: Right greater than left lower lung airspace opacity. This may represent atelectasis, pneumonia, and/o r aspiration. This is increased from prior exam. ACT 112: Negative or not required by law. Electronically signed by: Mak Edge M.D. 10/02/2024 10:45 AM
--- NOTE | 2024-10-02 12:09 | History & Physical Report ---
Date of Service October 02, 2024 Assessment & Plan (1) COPD exacerbation: Plan: Solu-medrol 60mg IV given in the ER, continue 40mg IV daily Duonebs q4h Formoterol/budesonide Nebs BID Guaifenesin 1200mg PO BID Incentive spirometer Flutter valve Sputum culture (2) Bilateral pneumonia: Plan: Multiple recent courses of antibiotics including amoxicillin, doxycycline and most recently cefdinir Procalcitonin now negative however CXR appears worse, favor extending antibiotics for short course with ceftriaxone and azithromycin (3) Human metapneumovirus pneumonia: Plan: Contact isolation precautions (4) Severe aortic stenosis: Plan: Repeat TTE (5) Type 2 diabetes mellitus, with long-term current use of insulin: Plan: HbA1C 6.0 in November 2023, repeat with AM labs Consult pharmacy for glycemic control (6) Chronic respiratory failure with hypoxia: Plan: On baseline O2 2LPM, aim O2 sats > 88% Plan Restless leg syndrome - continue ropinirole Paroxysmal atrial fibrillation - continue anticoagulation with Xarelto VTE Prophylaxis - Xarelto Diet - low sodium Disposition - admit to med/tele Admission and Anticipated Discharge Date Admission Date: October 02, 2024 History of Present Illness Chief Complaint: Shortness of breath Primary Care Provider: Felicia Costa MD Cady Resendiz is an 79 year old female with chronic anemia, COPD and severe aortic stenosis who presents to the ER with shortness of breath and increased productive cough for the last 3 weeks. She reports slight improvement when being put on amoxicillin/doxycycline/prednisone initially then started getting worse again and came to the ER on September 23 when she was started on cefdinir. She notes usually when she feels like this she goes on antibiotics and prednisone and improves but she doesn't think she is getting back to her baseline this time. No chest pressure. Allergies Allergy/AdvReac Type Severity Reaction Status Date / Time No Known Drug Allergies Allergy Verified 10/02/24 12:11 Home Medications Medication Instructions Recorded Confirmed Type multivitamin 1 tab PO QAM 04/18/21 10/02/24 History vit C 250 mg-vit E 90 mg-zinc 40 1 tab PO BID 07/21/22 10/02/24 History mg-copper 1 [id number]-beucqe capsule (PreserVision AREDS-2) magnesium oxide 400 mg (241.3 mg 400 mg PO BID #60 tabs 07/24/22 10/02/24 Rx magnesium) tablet lancets 33 gauge #200 ea 03/06/23 09/16/24 Rx insulin glargine 100 unit/mL (3 8 unit subcut HS 06/24/23 10/02/24 History mL) subcutaneous pen (Lantus Solostar U-100 Insulin) lactobacillus combination no.9 4 4,000 mmu cells PO QPM 06/24/23 10/02/24 History billion cell capsule (Adult 50 Plus Probiotic) ascorbic acid (vitamin C) 1,000 mg 1,000 mg PO DAILY 08/21/23 10/02/24 History capsule docusate sodium 100 mg tablet 100 mg PO DAILY 08/21/23 10/02/24 History (Stool Softener) pen needle, diabetic 31 gauge x #200 ea 09/15/23 09/16/24 Rx 3/16" (UltiCare Pen Needle) nystatin-triamcinolone 100,000 1 applic topical TID PRN Unknown 01/07/24 10/02/24 Rx unit/gram-0.1 % topical ointment #180 grams cyanocobalamin (vitamin B-12) 1,000 mcg PO 2XWK 02/08/24 10/02/24 History 1,000 mcg capsule ferrous sulfate 325 mg (65 mg 325 mg PO 3XWK 02/08/24 10/02/24 History iron) tablet amoxicillin 500 mg tablet 500 mg PO BID #60 tabs 02/22/24 10/02/24 Rx insulin aspart U-100 100 unit/mL See Rx Instructions subcut 03/04/24 10/02/24 Rx (3 mL) subcutaneous pen (Novolog .COMPLEX #30 mL FlexPen U-100 Insulin aspart) mepolizumab 100 mg/mL subcutaneous See Rx Instructions subcut 03/17/24 10/02/24 Rx auto-injector (Nucala) .COMPLEX #1 mL blood sugar diagnostic (OneTouch #300 ea 05/09/24 09/16/24 Rx Verio test strips) fluticasone propionate 50 1 spray intranasal BID #18.2 mL 05/24/24 10/02/24 Rx mcg/actuation nasal spray,suspension (Flonase Allergy Relief) sodium chloride, sodium See Rx Instructions .Route 05/24/24 10/02/24 Rx bicarb-nasal rinse squeeze bottle .COMPLEX #50 ea with packet (Neilmed Sinus Rinse Complete with packet) metformin 1,000 mg tablet 1,000 mg PO QAM #90 tabs 06/09/24 10/02/24 Rx ensifentrine 3 mg/2.5 mL 3 mg (2.5 mL) inhalation BID #150 07/18/24 10/02/24 Rx suspension for nebulization mL (Ohtuvayre) ipratropium 0.5 mg-albuterol 3 mg 3 ml inhalation QID PRN shortness 07/18/24 10/02/24 Rx (2.5 mg base)/3 mL nebulization of breath or wheezing #360 mL soln budesonide 160 mcg-glycopyr 9 2 inh inhalation BID #10.7 grams 07/28/24 10/02/24 Rx mcg-formot 4.8 mcg/actuation HFA inhaler (Breztri Aerosphere) rivaroxaban 10 mg tablet (Xarelto) 10 mg PO QPM #90 tabs 08/29/24 10/02/24 Rx furosemide 20 mg tablet 20 mg PO QAM #30 tabs 09/16/24 10/02/24 Rx albuterol sulfate 90 mcg/actuation 2 puff inhalation Q4H PRN 10/02/24 10/02/24 History aerosol inhaler (Ventolin HFA) Shortness Of Breath Or Wheezing pantoprazole 40 mg tablet,delayed 40 mg PO QAM 10/02/24 10/02/24 History release ropinirole 0.5 mg tablet 1.5 mg PO HS 10/02/24 10/02/24 History simvastatin 40 mg tablet 40 mg PO HS 10/02/24 10/02/24 History Past Med/Surg History Problem List (Updated 10/02/24 @ 16:25 by Yonathan Miramontes MD) Anemia (Acute) Pedal edema (Acute) Failure of outpatient treatment (Acute) Infection due to human metapneumovirus (hMPV) (Acute) SOB (shortness of breath) (Acute) Pneumonia (Acute) Bilateral pneumonia COPD exacerbation LLL pneumonia (Acute) Swelling (Acute) Cough (Acute) Human metapneumovirus pneumonia (Acute) COPD with exacerbation Leg swelling Dyspnea Severe aortic stenosis Systolic murmur Right calf pain COPD (chronic obstructive pulmonary disease) Asthma (Chronic) Type 2 diabetes mellitus, with long-term current use of insulin (Chronic) Selective deficiency of IgG (Chronic) Pernicious anemia (Chronic) Mediastinal adenopathy (Chronic) Iron deficiency anemia secondary to inadequate dietary iron intake High-grade 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 Chronic respiratory failure with hypoxia 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) use of 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 (Chronic) Paroxysmal atrial fibrillation Osteoporosis Nephrolithiasis Diabetic peripheral 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) Restless leg syndrome (Chronic) Vitamin D deficiency Obstructive sleep apnea (Chronic) Refuses device per records Multiple pulmonary nodules (Chronic) HTN (hypertension) (Chronic) Esophageal reflux (Chronic) Dyslipidemia (Chronic) Medical History SNHL (sensorineural hearing loss) BPPV (benign paroxysmal positional vertigo) On home O2 2 LPM continuous Osteoarthritis History of DVT (deep vein thrombosis) RLE post op (approximtely 2 years ago) Taking Xarelto Insomnia Peptic ulcer disease Hx of fracture of femur Surgical History History of lithotripsy History of eye removal History of appendectomy History of esophagogastroduodenoscopy (EGD) History of colonoscopy History of open reduction and internal fixation (ORIF) procedure History of tooth extraction History of removal of skin mole History of carpal tunnel release of both wrists Hx of colonoscopy History of bronchoscopy Hx of cataract extraction Hx of eye surgery H/O total hip arthroplasty Hx of total knee arthroplasty History of tonsillectomy and adenoidectomy Hx of cholecystectomy H/O: hysterectomy Family History (Updated 07/26/24 @ 08:59 by Dayana Jenkins) Father Cardiovascular disease Diabetes Asthma Heart disease Brother Diabetes Cardiac disorder Mother Breast cancer Other Hypertension No family history of adverse response to anesthesia No family history of bleeding disorder Denies family history of Ovarian cancer Prostate cancer Myocardial infarction Colorectal cancer Social History Smoking Status: Never smoker Second Hand Exposure: Yes; Do You Dip or Chew Tobacco: No; Tobacco Cessation Education Requested by Patient: No Hx Alcohol Use: No Hx Substance Use: No Preferred Language: Polish Communication Ability: Effective 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: No Beliefs That Will Affect Care: None marital status: Current Living Situation: Spouse current occupational status: retired Other Information That Helps Us Care for You: No Feels Safe at Home: Yes Safety Concerns: Feels Safe At This Time Diet: regular Dental Care, Regularly: No Physical Activity Frequency: Does not Exercise Seatbelt Use: always Sunscreen Use: No Assistive Devices: Walker Physical Exam Constitutional: WD/WN, vitals as above ENMT: external ear and nose normal, oropharynx normal Respiratory: + labored breathing and + uses accessory muscles Auscultation: + crackles and + wheezes Cardiovascular: Rate/Rhythm: regular rate and regular rhythm Heart Sounds: + murmur Extremities: normal capillary refill and + pedal edema; no calf tenderness Gastrointestinal (Abdomen): normal bowel sounds, soft, nontender, no hepatosplenomegaly Musculoskeletal: no cyanosis or clubbing, extremities motor strength 5/5 Skin: no rashes, warm and dry Neurologic: moves all extremities and awake; not confused Psychiatric: A+Ox3, euthymic affect Results & Data Results & Data Vital Signs (Past 12 Hours) Vital Signs Temp Pulse Pulse Resp BP BP Pulse Ox 10/02/24 11:48 93 H 21 94 10/02/24 11:33 94 H 19 94 10/02/24 11:27 85 20 131/70 95 10/02/24 10:12 100 10/02/24 10:00 90 19 100 10/02/24 09:36 89 20 98 10/02/24 09:23 87 10/02/24 09:23 96 10/02/24 09:16 157/60 H 10/02/24 09:16 36.7 C 89 18 157/60 H 96 10/02/24 09:16 O2 Del Method O2 Flow Rate 10/02/24 11:48 Nasal Cannula 2 10/02/24 11:33 Nasal Cannula 2 10/02/24 11:27 Nasal Cannula 2 10/02/24 10:12 Room Air, Nebulizer 6 10/02/24 10:00 10/02/24 09:36 10/02/24 09:23 10/02/24 09:23 Nasal Cannula 3 10/02/24 09:16 10/02/24 09:16 Nasal Cannula 3 10/02/24 09:16 Nasal Cannula 3 Laboratory Results Abnormal lab results 10/02/24 10/02/24 10/02/24 Range/Units 09:53 10:30 10:52 RBC 3.06 L (4.20-5.40) M/uL Hgb 8.4 L (12.0-16.0) g/dl Hct 27.8 L (37.0-47.0) % MCHC 30.2 L (32.0-36.0) g/dL RDW Std Deviation 47.3 H (36.4-46.3) fL VBG pH 7.43 H (7.36-7.41) VBG pCO2 59 H (38-50) mmHg Carbon Dioxide 36 H (21-32) mmol/L Glucose 120 H (70-99(Fasting)) mg/dl Troponin I High Sens 18.9 H (0-14) pg/ml B-Natriuretic Peptide 166 H (0-100) pg/ml Total Protein 5.9 L (6.0-8.3) gm/dl Globulin 2.4 L (2.5-4.0) gm/dl Urine Protein 1+ H (Negative) Diagnostic Findings XR chest 1V portable CLINICAL HISTORY: Dyspnea TECHNIQUE: Single frontal radiograph of the chest was obtained. Comparison: Comparison is made to chest radiograph 09/23/2024 FINDINGS: An implanted pacemaker is seen. The cardiomediastinal silhouette is stable. Right greater than left lower lung airspace opacity is seen. No evidence of pleural effusion or pneumothorax. IMPRESSION: Right greater than left lower lung airspace opacity. This may represent atelectasis, pneumonia, and/or aspiration. This is increased from prior exam. Medications Administered ER Medications Given: Duoneb 3ml NEB Zosyn 4.5g IV Furosemide 40mg IV ECG Rate (beats per minute): 88 Rhythm: normal sinus Findings: + 1st degree AV block, + LAFB and + RBBB Comparison ECG Date: from (September 23, 2024) Change: the following changes noted (PVCs no longer present) Code Status & VTE Plan Code Status DNR/DNI VTE Prophylaxis Plan VTE Prophylaxis will be ordered: Yes PG Care Time/CCT Total # of Minutes Spent Total Time Spent with Patient: Total time spent is greater than 50% in coordination of care (as documented) at patient's floor/unit and/or counseling patient: Coding Level of Care Code 64510 INT INP/OBS CARE MIN Diagnoses COPD exacerbation J44.1 Bilateral pneumonia J18.9 Human metapneumovirus pneumonia J12.3 Severe aortic stenosis I35.0 Type 2 diabetes mellitus, with long-term current use of insulin E11.9; Z79.4 Chronic respiratory failure with hypoxia J96.11
[2024-10-02] MEDS ORDERED: PHARMACY GLYCEMIC MGMT CONSULT PRN (12:48)
[2024-10-02] MEDS: INSULIN ASPART PER UNIT CHARGE SC SCH (14:30)
[2024-10-02] MEDS: AZITHROMYCIN 250 MG TAB PO SCH (14:56)
[2024-10-02] MEDS: cefTRIAXone SODIUM 2,000 MG/50 ML BAG IV SCH (15:03)
[2024-10-02] MEDS: ALBUT/IPRATROP 3MG/0.5MG NEB 3 ML VIAL NEB SCH (15:05)
--- NOTE | 2024-10-02 15:07 | Pharmacy Report ---
Pharmacy Glycemic Short Note 2 - Date of Service October 02, 2024 - Glycemic Short BSG Results (Last 24 hours): 10/02/24 09:53 Glucose 120 H OUTPATIENT ANTIDIABETIC REGIMEN: * Lantus 8 units SQ q HS * metformin 1000mg po q AM HbA1c ordered for 10/03 (last was 6% on 12/08/23) ASSESSMENT: * 79 year old female admitted today for COPD exacerbation/pneumonia. Pharmacy has been consulted for glycemic management while she is admitted. * BSG was 120mg/dL on admit. She received 60mg iv methylprednisolone in the ED this morning and is ordered 40mg iv daily starting tomorrow. * Her home dose of Lantus 8 units SQ HS has been order to start tonight and weight based bolus insulin dosing with a stress between 1 and 2 has been ordered to start this afternoon. PLAN FOR INPATIENT GLYCEMIC CONTROL: * Hold outpatient oral diabetes medications * Basal insulin * Lantus 8 units SQ HS * Bolus insulin * NovoLog per scale ACHS or Q6hrs while NPO * Goal Range: Low 110 mg/dL - High 140 mg/dL * Correction Factor: 30 mg/dL/unit * Nutritional / Prandial insulin per carb ratio of 1 unit per 10 grams CHO consumed
[2024-10-02] MEDS: RIVAROXABAN 10 MG TABLET PO SCH (17:08)
--- NOTE | 2024-10-02 19:04 | XCELERA ---
[id number]
[2024-10-02] MEDS: FORMOTEROL 20 MCG/2 ML VIAL NEB SCH (19:50)
[2024-10-02] MEDS: BUDESONIDE 0.5 MG/2 ML VIAL (PULMICORT) NEB SCH (19:50)
[2024-10-02] MEDS: FLUTICASONE PROPIONATE NA SPR 16 GM BTL NAE SCH (21:06)
[2024-10-02] MEDS: rOPINIRole HCL 1 MG TABLET PO SCH (21:07)
[2024-10-02] MEDS: LANTUS PER UNIT CHARGE SC SCH (21:10)
[2024-10-02] MEDS: ACETAMINOPHEN 325 MG TAB PO PRN (21:12)
[2024-10-02] MEDS: SIMVASTATIN 40 MG TAB PO SCH (21:12)
[2024-10-02] MEDS ORDERED: ALBUTEROL HFA 8 GM INHALER INH PRN (21:50)
--- NOTE | 2024-10-02 21:52 | Electrocardiogram Report ---
Test Reason : Blood Pressure : */* mmHG Vent. Rate : 88 BPM Atrial Rate : 88 BPM P-R Int : 296 ms QRS Dur : 154 ms QT Int : 392 ms P-R-T Axes : * -70 72 degrees QTcB Int : 474 ms Sinus rhythm with 1st degree A-V block Right bundle branch block Left anterior fascicular block Bifascicular block Septal infarct , age undetermined Abnormal ECG When compared with ECG of 23-Sep-2024 08:20, Premature ventricular complexes are no longer Present Confirmed by Minh Keith ([id number]) on 10/02/2024 9:52:41 PM Referred By: REFERRED SELF Confirmed By: Minh Keith
[2024-10-02] MEDS: guaiFENesin 600 MG TABCR PO SCH (22:10)
[2024-10-03 06:29] LABS: Basophils # (auto) 0.03 K/uL (0.00-0.20); Basophils % (auto) 0.3 %; Eosinophils # (auto) 0.04 K/uL (0.00-0.50); Eosinophils % (auto) 0.4 %; Hematocrit (blood only) 27.6 % (37.0-47.0); Hemoglobin 8.4 g/dl (12.0-16.0); Immature Granulocytes # (auto) 0.04 K/uL (0.01-0.20); Immature Granulocytes % (auto) 0.4 %; Lymphocytes % (auto) 18.9 %; Mean Corpuscular Hemoglobin 27.1 pg (25.0-34.0); Mean Corpuscular Hgb Conc 30.4 g/dL (32.0-36.0); Mean Platelet Volume 11.5 fL (9.4-12.4); Monocytes # (auto) 0.65 K/uL (0.11-0.59); Monocytes % (auto) 6.8 %; Neutrophils # (auto) 6.95 K/uL (1.40-6.50); Neutrophils % (auto) 73.2 %; Platelet Count 321 K/uL (130-400); RDW Coefficient of Variation 14.3 % (11.5-14.5); RDW Standard Deviation 46.4 fL (36.4-46.3); Reticulocyte % 1.93 % (0.50-2.00); White Blood Count 9.51 K/ul (4.8-10.8)
[2024-10-03 06:50] LABS: BUN Creatinine Ratio 16.4 (10-20); Potassium 4.3 mmol/L (3.5-5.1)
[2024-10-03 07:11] LABS: Ferritin 73.4 ng/ml (8-388); Thyroid Stimulating Hormone 0.478 uIu/ml (0.300-4.500)
[2024-10-03 07:14] LABS: Folate (Folic Acid),Ser orPlas > 22.30 ng/ml (>5.38)
[2024-10-03 07:15] LABS: Vitamin B12 941 pg/ml (180-914)
[2024-10-03] MEDS: methylPREDNISolone 40 MG in SYRINGE 0 ML IV SCH (08:00)
[2024-10-03] MEDS: PANTOprazole 40 MG TAB PO SCH (08:00)
[2024-10-03] MEDS: FUROSEMIDE 20 MG TAB PO SCH (08:00)
[2024-10-03 08:33] LABS: Estimated Average Glucose 120 mg/dl; Hemoglobin A1C 5.8 % (4.5-5.6)
[2024-10-03] MEDS: DOCUSATE SODIUM 100 MG CAP PO SCH (08:51)
[2024-10-03] MEDS ORDERED: methylPREDNISolone 125 MG/2 ML VIAL IV SCH (09:00)
--- NOTE | 2024-10-03 10:30 | Hospitalist Progress Note ---
Date of Service October 03, 2024 Assessment & Plan (1) COPD exacerbation: (2) Bilateral pneumonia: (3) Human metapneumovirus pneumonia: (4) Severe aortic stenosis: (5) Acute kidney injury: (6) Type 2 diabetes mellitus, with long-term current use of insulin: Plan Cady Resendiz is an 79 year old female with chronic anemia, end-stage COPD, REJI, DMT2, RSL and severe aortic stenosis who presents to the ER with shortness of breath and increased productive cough for the last 3 weeks. recently completed a course of prednisone and cefdinir and felt like she continued to get worse since then. #COPD exacerbation/pneumonia/human metapneumovirus/chronic respiratory failure with hypoxia Baseline 2L O2, 3L with activity Continue solumedrol 40mg IV Duonebs q4h, Formoterol/budesonide Nebs BID Pulm toilet: Guaifenesin 1200mg BID, IS, FV Sputum culture, pending - uncollected Blood cultures: No growth 24 hours Multiple recent courses of antibiotics including amoxicillin, doxycycline and cefdinir - however CXR appears worse, favor extending antibiotics for short course with ceftriaxone and azithromycin Physical deconditioning likely contributing - PT/OT added Given appropriate saturations on home dose O2 will add low dose ativan to see if that helps with sensation that she cant breathe. #Aortic Stenosis Echo: EF 55 to 60%, no regional wall motion abnormalities. Moderate aortic stenosis. Lasix recently increased to 20 mg daily, careful with overdiuresis/dehydration #DAVID Baseline creatinine~0.9-1 Creatinine bumped to 1.46 after diuresis. Will discontinue further IV Lasix, encouraging p.o. fluids deferring IV with her moderate AM BMP #DM - type II A1c 5.8. Home regimen: Lantus 8 units nightly, metformin Consult pharmacy for glycemic control #Anemia of chronic disease Hemoglobin 8.4 on admission which is near her baseline Vitamin B12, TSH, folate WNL. Iron studies consistent with anemia of chronic disease Restless leg syndrome - continue ropinirole Paroxysmal atrial fibrillation - continue anticoagulation with Xarelto VTE Prophylaxis - Xarelto Disposition - continued inpatient stay working to improve breathing and trending kidney function Admission and Anticipated Discharge Date Admission Date: October 02, 2024 Supervising Physician Co-Signing Physician Notes PA Supervision Note: I did not personally see or examine the patient today, but I verified all betancourt points of DALE Sy's assessment and plan with the following exceptions/additions: None Subjective Patient seen lying in bed - reports continuously that she feels like she cant breathe. She maintains 93-94% on 2L (home dose) during the duration of my encounter. She reports minimal cough, worse with nebulizer treatments. Reports "feeling like she is going to because she cant breath" Reassurance provided. Increased urine overnight likely secondary to diuresis Tele - SR 80-90s Review of Systems Review of Systems: All systems reviewed & are unremarkable except as noted in Subjective Physical Exam Physical Exam: General: appears anxious, VS as above Resp: on 2L NC, rhonchi throughout, no wheezing. some accessory muscle use on initial inspection, throughout the interview accessory muscle use increased CV: RRR, no murmur, Abd: normal bowel sounds, non tender, no hepatosplenomegaly Extremities: Moves all extremities, no edema Neuro: A&O x3, Results & Data Results & Data Vital Signs (Past 12 Hours) Vital Signs Temp Pulse Pulse Resp BP Pulse Ox O2 Del Method 10/03/24 09:17 Nasal Cannula 10/03/24 07:32 86 14 98 Nasal Cannula 10/03/24 07:31 81 10/03/24 07:21 97.7 F 87 18 144/63 H 100 Nasal Cannula 10/03/24 04:35 97.7 F 89 18 143/67 H 96 Nasal Cannula 10/03/24 02:41 95 H 20 100 Nasal Cannula 10/02/24 22:54 98.6 F 95 H 17 171/82 H 100 Nasal Cannula 10/02/24 22:42 105 H 20 95 Nasal Cannula O2 Flow Rate 10/03/24 09:17 2 10/03/24 07:32 2 10/03/24 07:31 10/03/24 07:21 2 10/03/24 04:35 2 10/03/24 02:41 2 10/02/24 22:54 2 10/02/24 22:42 2 Laboratory Results cbc, chemistry, B12, TSH, folate, iron studies reviewed blood cultures reviewed Diagnostic Findings echo reviewed PG Care Time/CCT Total # of Minutes Spent Total Time Spent with Patient: Total time spent is greater than 50% in coordination of care (as documented) at patient's floor/unit and/or counseling patient: Coding Level of Care Code 49333 SUB INP/OBS CARE MIN Diagnoses COPD exacerbation J44.1 Bilateral pneumonia J18.9 Human metapneumovirus pneumonia J12.3 Severe aortic stenosis I35.0 Acute kidney injury N17.9 Type 2 diabetes mellitus, with long-term current use of insulin E11.9; Z79.4
[2024-10-03] MEDS: LORazepam 0.5 MG TAB PO STA (15:59)
[2024-10-03] MEDS ORDERED: NON-FORMULARY MEDICATION (Budesonide-Glycopyr-Formoterol [Breztri Aerosphere] 160-9-4.8 mc INH SCH (21:00)
[2024-10-03] MEDS: OHTUVAYRE INH SCH (21:02)
--- NOTE | 2024-10-03 21:29 | Communication Note ---
Date of Service: October 03, 2024 Contacted by RN due to patient reporting increased SOB despite recent nebulizer therapy. On arrival to bedside patient found speaking to on the phone and in NAD. Patient endorses feeling SOB but denies chest pain/tightness, weakness, or any other associated symptom. VS with oxygen saturation at 96% with NC at 2LPM, and other vital signs wnl. To my exam, patient with mild expiratory wheezing but no crackles, no conversational dyspnea, and no increased work of breathing or respiratory distress. Suspect current SOB could be related to anxiety since she had similar sxs earlier in the day that improved with ativan. I did change her scheduled inhalers to add the ones she uses at home (uses Breztri, but changed to Anoro and Arnuity instead as Breztri not available). Also ordered one time dose of Ativan 0.25 mg PO. On re-evaluation, patient reports improvement in her symptoms. Resident Activity Tracking Resident Involvement: Resident Care Provided Care Provided: Adult [facility]
[2024-10-03] MEDS: LORazepam 0.5 MG TAB PO ONE (22:41)
[2024-10-04 06:24] LABS: Hematocrit (blood only) 27.5 % (37.0-47.0); Hemoglobin 8.5 g/dl (12.0-16.0); Mean Corpuscular Hemoglobin 27.6 pg (25.0-34.0); Mean Corpuscular Hgb Conc 30.9 g/dL (32.0-36.0); Mean Corpuscular Volume 89.3 fL (80.0-100.0); Mean Platelet Volume 11.7 fL (9.4-12.4); Platelet Count 322 K/uL (130-400); RDW Coefficient of Variation 14.4 % (11.5-14.5); RDW Standard Deviation 46.8 fL (36.4-46.3); Red Blood Count 3.08 M/uL (4.20-5.40); White Blood Count 11.02 K/ul (4.8-10.8)
[2024-10-04 06:56] LABS: BUN Creatinine Ratio 20.8 (10-20); Calcium 9.4 mg/dl (8.6-10.3); Creatinine Clr Calc Pharmacy 38.1 ml/min; Potassium 4.3 mmol/L (3.5-5.1)
[2024-10-04] MEDS: FLUTICASONE FUROATE 200MCG 14 PUFFS/INHALER INH SCH (08:00)
[2024-10-04] MEDS ORDERED: DEXTROSE 50% 50 ML SYRINGE IV PRN (08:00)
[2024-10-04] MEDS: UMECLIDINIUM/VILANTEROL 62.5/25MCG 7 PUFFS/INHALER INH SCH (08:00)
[2024-10-04] MEDS ORDERED: GLUCAGON FOR INJ 1 MG VIAL SQ PRN (08:00)
[2024-10-04] MEDS ORDERED: GLUCOSE 40% GEL 15 GM TUBE PO PRN (08:00)
[2024-10-04] MEDS ORDERED: CARBOHYDRATES FOR HYPOGLYCEMIA PO PRN (08:00)
[2024-10-04] MEDS ORDERED: GLUCOSE 10 TAB/TUBE PO PRN (08:00)
[2024-10-04] MEDS ORDERED: LORazepam 0.5 MG TAB PO PRN (10:22)
--- NOTE | 2024-10-04 14:22 | Pharmacy Report ---
Pharmacy Glycemic Short Note 2 - Date of Service October 04, 2024 - Glycemic Short BSG Results (Last 24 hours): 10/03/24 10/03/24 10/04/24 17:12 20:07 05:55 Glucose 107 H POC Glucose 180 H 112 H 10/04/24 10/04/24 07:58 11:59 Glucose POC Glucose 111 H 170 H OUTPATIENT ANTIDIABETIC REGIMEN: * Lantus 8 units SC HS * Metformin 1000 mg PO AM * HbA1c: 5.8% (10/03/24) ASSESSMENT: 10/04: * Cady received 20 units of insulin yesterday, 8 of which were basal. BSGs were: 424-306-106-112 mg/dL. * Fasting BSG controlled at 111 mg/dL this AM. No change to basal. * Some postprandial hyperglycemia throughout the evening which may be due to steroids. Continues on SoluMedrol 40 mg IV daily. Did tighten CF and CR slightly this AM to match weight/stress of 2. 10/02: * 79 year old female admitted today for COPD exacerbation/pneumonia. Pharmacy has been consulted for glycemic management while she is admitted. * BSG was 120mg/dL on admit. She received 60mg iv methylprednisolone in the ED this morning and is ordered 40mg iv daily starting tomorrow. * Her home dose of Lantus 8 units SQ HS has been order to start tonight and weight based bolus insulin dosing with a stress between 1 and 2 has been or dered to start this afternoon. PLAN FOR INPATIENT GLYCEMIC CONTROL: * Hold outpatient oral diabetes medications * Basal insulin * Lantus 8 units SC HS * Bolus insulin * NovoLog per scale ACHS or Q6hrs while NPO * Goal Range: Low 110 mg/dL - High 140 mg/dL * Correction Factor: 25 mg/dL/unit * Nutritional / Prandial insulin per carb ratio of 1 unit per 9 grams CHO consumed
--- NOTE | 2024-10-04 16:04 | Hospitalist Progress Note ---
Date of Service October 04, 2024 Assessment & Plan (1) COPD exacerbation: (2) Bilateral pneumonia: (3) Human metapneumovirus pneumonia: (4) Severe aortic stenosis: (5) Acute kidney injury: (6) Type 2 diabetes mellitus, with long-term current use of insulin: Plan Cady Resendiz is an 79 year old female with chronic anemia, end-stage COPD, REJI, DMT2, RSL and severe aortic stenosis who presents to the ER with shortness of breath and increased productive cough for the last 3 weeks. recently completed a course of prednisone and cefdinir and felt like she continued to get worse since then. given worsening appearance of chest x-ray will be treated with a short course of the antibiotics. #COPD exacerbation/pneumonia/human metapneumovirus/chronic respiratory failure with hypoxia Baseline 2L O2, 3L with activity Continue solumedrol 40mg IV, Duonebs q4h, Formoterol/budesonide Nebs BID Pulm toilet: Guaifenesin 1200mg BID, IS, FV Sputum culture, pending - uncollected Blood cultures: No growth 48 hours Physical deconditioning likely contributing - PT/OT added P.o. Ativan added and has been helpful with patient anxiety and feeling like she cannot breathe. Will continue low-dose as needed. Leukocytosis is likely reactive from steroids #Aortic Stenosis Echo: EF 55 to 60%, no regional wall motion abnormalities. Moderate aortic stenosis. Lasix recently increased to 20 mg daily, careful with overdiuresis/dehydration #DAVID Baseline creatinine~0.9-1 Creatinine bumped to 1.46 after diuresis, but now improving to 1.3. Will discontinue further IV Lasix, encouraging p.o. fluids deferring IV with her moderate AM BMP #DM - type II A1c 5.8. Home regimen: Lantus 8 units nightly, metformin Consult pharmacy for glycemic control #Anemia of chronic disease Hemoglobin 8.4 on admission which is near her baseline Vitamin B12, TSH, folate WNL. Iron studies consistent with anemia of chronic disease Restless leg syndrome - continue ropinirole Paroxysmal atrial fibrillation - continue anticoagulation with Xarelto VTE Prophylaxis - Xarelto Disposition - continued inpatient stay working to improve breathing and trending kidney function, possible discharge tomorrow Admission and Anticipated Discharge Date Admission Date: October 02, 2024 Supervising Physician Co-Signing Physician Notes PA Supervision Note: I did not personally see or examine the patient today, but I verified all betancourt points of DALE Sy's assessment and plan with the following exceptions/additions: None Subjective Patient seen lying in bed this morning - just prior to working with PT. States she is feeling better and does feel like ativan is helping. Non productive cough. Feels about 50% better. Tele - SR PAC/PVS IVCD in 80s Review of Systems Review of Systems: All systems reviewed & are unremarkable except as noted in Subjective Physical Exam Physical Exam: General: appears anxious, VS as above Resp: on 2L NC, coarse throughout, no wheezing. no accessory muscle use CV: RRR, no murmur, Abd: normal bowel sounds, non tender, no hepatosplenomegaly Extremities: Moves all extremities, no edema Neuro: A&O x3, Results & Data Results & Data Vital Signs (Past 12 Hours) Vital Signs Temp Pulse Pulse Resp BP Pulse Ox Pulse Ox 10/04/24 15:16 97 H 20 98 10/04/24 15:13 98.1 F 98 H 18 150/81 H 97 10/04/24 13:31 94 10/04/24 12:56 97 10/04/24 11:43 98.2 F 85 18 144/82 H 96 10/04/24 11:25 85 20 96 10/04/24 09:12 10/04/24 07:32 97.9 F 83 20 141/80 H 100 10/04/24 07:25 82 10/04/24 07:10 85 20 97 Pulse Ox O2 Del Method O2 Flow Rate O2 Flow Rate O2 Flow Rate 10/04/24 15:16 Nasal Cannula 2 10/04/24 15:13 Nasal Cannula 2 10/04/24 13:31 10/04/24 12:56 91 2 2 10/04/24 11:43 Nasal Cannula 2 10/04/24 11:25 Nasal Cannula 2 10/04/24 09:12 Nasal Cannula 2 10/04/24 07:32 Nasal Cannula 2 10/04/24 07:25 10/04/24 07:10 Nasal Cannula 2 Laboratory Results CBC Reviewed Chemistry reviewed Blood cultures reviewed PG Care Time/CCT Total # of Minutes Spent Total Time Spent with Patient: Total time spent is greater than 50% in coordination of care (as documented) at patient's floor/unit and/or counseling patient: Coding Level of Care Code 86159 SUB INP/OBS CARE 50MIN Diagnoses COPD exacerbation J44.1 Bilateral pneumonia J18.9 Human metapneumovirus pneumonia J12.3 Severe aortic stenosis I35.0 Acute kidney injury N17.9 Type 2 diabetes mellitus, with long-term current use of insulin E11.9; Z79.4
[2024-10-04] MEDS: ALBUT/IPRATROP 3MG/0.5MG NEB 3 ML VIAL NEB SCH (19:58)
[2024-10-05 06:27] LABS: Creatinine Clr Calc Pharmacy 32.9 ml/min; Potassium 3.9 mmol/L (3.5-5.1)
[2024-10-05 07:14] VITALS: RESP 18
[2024-10-05] MEDS: SODIUM CHLORIDE 0.9% 500 ML IV ONE (10:44)
[2024-10-05 11:22] VITALS: TEMP 98.1
[2024-10-05 15:26] VITALS: O2SAT 95
[2024-10-05 15:29] LABS: BUN Creatinine Ratio 22.1 (10-20); Creatinine Clr Calc Pharmacy 35.2 ml/min; Potassium 4.8 mmol/L (3.5-5.1)
[2024-10-05 15:34] VITALS: BP 130/72
--- NOTE | 2024-10-05 16:05 | Discharge Summary ---
Discharge Summary Date of Service October 05, 2024 Principal Dx & Hospital Course #1 = Principal Diagnosis (1) COPD exacerbation: (2) Bilateral pneumonia: (3) Human metapneumovirus pneumonia: (4) Severe aortic stenosis: (5) Acute kidney injury: (6) Type 2 diabetes mellitus, with long-term current use of insulin: Radha Resendiz is an 79 year old female with chronic anemia, end-stage COPD, REJI, DMT2, RSL and severe aortic stenosis who presents to the ER with shortness of breath and increased productive cough for the last 3 weeks. recently completed a course of prednisone and cefdinir and felt like she continued to get worse since then. given worsening appearance of chest x-ray will be treated with a short course of the antibiotics. #COPD exacerbation/pneumonia/human metapneumovirus/chronic respiratory failure with hypoxia found to have human pneumo virus and concerns for pneumonia on chest x-ray. She was treated with IV azithromycin and ceftriaxone as well as IV Solu-Medrol. She responded well to these in addition to her home nebulizer/inhaler treatments. She maintained on her home oxygen requirements and will be discharged home with a continued course of prednisone taper and Augmentin. She completed the course of azithromycin. Encouraged to continue using her flutter valve and incentive spirometer at home. Given low-dose Ativan twice while inpatient to help with the feeling that she cannot breathe. She was very grateful to have this at her use at home, discussed not overusing this. Message sent to PCP to inform about may need further prescriptions in the future. She has blood cultures pending at 48 hours however I do not expect them to turn positive. #Aortic Stenosis Echo: EF 55 to 60%, no regional wall motion abnormalities. Moderate aortic stenosis. Lasix recently increased to 20 mg daily with DAVID instructed to hold until PCP follow-up. Suspect she does not need daily dosing possibly as needed #DAVID Creatinine bumped to 1.46 after diuresis, slight bump again today to 1.5 after receiving p.o. Lasix yesterday. Given IV fluids, encouraged p.o. and repeat BMP had decreasing Cr to 1.4, discontinue p.o. Lasix. Encourage p.o. fluids. Consider repeat BMP #DM - type II A1c 5.8. well-controlled while inpatient, continue home regimen #Anemia of chronic disease Vitamin B12, TSH, folate WNL. Iron studies consistent with anemia of chronic disease. no active bleeding while inpatient. Dispo: Discharge to home updated at bedside 10/05 Notes For Next Care Provider initiated low-dose Ativan prescription as needed for shortness of breath/breathlessness/anxiety Recommend repeat BMP to ensure resolution of DAVID. Told patient to stop taking her Lasix and discussed that PCP follow-up if she should be using as needed Medication Changes From Visit stop Lasix Continued course of Augmentin Prednisone taper Admission HPI Per Admitting Provider Cady Resendiz is an 79 year old female with chronic anemia, COPD and severe aortic stenosis who presents to the ER with shortness of breath and increased productive cough for the last 3 weeks. She reports slight improvement when being put on amoxicillin/doxycycline/prednisone initially then started getting worse again and came to the ER on September 23 when she was started on cefdinir. She notes usually when she feels like this she goes on antibiotics and prednisone and improves but she doesn't think she is getting back to her baseline this time. No chest pressure. Discharge Exam General: appears for more comfortable than prior days, VS as above Resp: on 2L NC, coarse throughout, no wheezing. no accessory muscle use CV: RRR, no murmur, Abd: normal bowel sounds, non tender, no hepatosplenomegaly Extremities: Moves all extremities, no edema Neuro: A&O x3, Discharge Plan Discharge Items Patient Disposition: Home - Self-Care Reason For Visit: PNEUMONIA, COPD Discharge Diagnosis: Pneumonia and COPD exacerbation Condition on Discharge: Fair Activity: Resume your previous activity Weightbearing: Full weightbearing Non-emergency contact: Primary Care Provider and [facility] Call non-emergency contact if: you have any medication questions, your symptoms worsen and your temperature is above 101 Follow-up/Referrals: Juan Bolden MD, FCCP [Physician] - (keep appointment as scheduled ) Felicia Costa MD [Primary Care Provider] - 10/11/24 2:30 pm (follow up 7-10 days ) Diet: Carb Consistent or DM2 and Low Sodium (2gm) Addtl Attending Provider Instructions: Ms. Resendiz, You were hospitalized after having worsening shortness of breath feeling. You were found to have humanmetapneumavirus and a COPD exacerbation. You were treated with IV antibiotics and steroids and have gotten better. You will continue on a course of prednisone and Augmentin - both of these to start tomorrow morning 10/06. Continue your home inhalers and Mucinex. Continue to use the incentive spirometer. I have also prescribed a little bit of ativan you can use when you feel like you can't breathe but your pulse oximeter is saying otherwise. Only use this when you truly need it. You had a bump in your kidney function from the lasix you were given, it did come down prior to discharge. It is very important that you are staying extra hydrated over the next few days - drinking 2L of liquids a day. Please keep your appointment with pulmonology as scheduled for Thursday. No other changes to your home medications. Follow-up appointments: Make an appointment with your primary care physician within one week of discharge. A copy of this summary will be sent to them. Every time you see your primary care physician, or any other doctor, bring your medication list, and a list of questions. CONTACT YOUR PRIMARY CARE PROVIDER if you experience any of the following: Shortness of breath or difficulty breathing Fevers or chills Feeling tired with normal activity or experiencing dizziness or fainting Difficulty following your treatment plan, or difficulty taking medications CALL 911 OR GO TO THE EMERGENCY DEPARTMENT if you experience any of the following: Severe abdominal pain or nausea/vomiting Severe chest pain, or chest pain that radiates (moves) to your jaw or arm Sudden, severe shortness of breath or difficulty breathing Thank you for allowing us to participate in your care. Pending Studies at Discharge: No Stand-Alone Forms: [facility], Smoking Cessation Medications and DC Order Prescriptions: New lorazepam 0.5 mg Tablet 0.25 mg PO TID PRN (Reason: anxiety or shortness of breath) Qty: 15 0RF guaifenesin [Mucinex] 600 mg Tablet Extended Release 12hr 1,200 mg PO Q12 5 Days Qty: 20 0RF amoxicillin-pot clavulanate 875-125 mg tablet 1 tab PO BID Qty: 8 0RF prednisone 10 mg tablet See Taper PO DIRECTED Qty: 27 0RF Taper: Taper, Blank 40 mg DAILY for 3 Days and 0 Hour 30 mg DAILY for 3 Days and 0 Hour 20 mg DAILY for 3 Days and 0 Hour Rx Instructions: see taper instructions Continued Xarelto 10 mg tablet 10 mg PO QPM Qty: 90 1RF Rx Instructions: Per [facility] with evening meal ferrous sulfate 325 mg (65 mg iron) tablet 325 mg PO 3XWK Rx Instructions: M/W/F with food (DME) lancets 33 gauge misc See Rx Instructions .Route Qty: 200 3RF Rx Instructions: OneTouch Delica - Test blood sugars twice a day (DME) pen needle, diabetic [UltiCare Pen Needle] 31 gauge x 3/16" needle See Rx Instructions .Route Qty: 200 11RF Rx Instructions: Use 4 per day nystatin-triamcinolone 100,000-0.1 unit/gram-% ointment 1 applic topical TID PRN (Reason: Unknown) Qty: 180 3RF Rx Instructions: apply sparingly to affected areas insulin aspart U-100 [Novolog FlexPen U-100 Insulin] 100 unit/mL (3 mL) insulin pen See Rx Instructions subcut .COMPLEX MDD 20 units Qty: 30 3RF Rx Instructions: subcutaneously, three times a day with meals, and sliding scale for high blood sugar Nucala 100 mg/mL auto-injector See Rx Instructions subcut .COMPLEX Qty: 1 11RF Rx Instructions: INJECT 100MG SC EVERY 4 WEEKS SEND TO [facility] HOME APPROVED GOOD 01/16/24-03/16/25 [id number] (DME) OneTouch Verio test strips Strip See Rx Instructions .ROUTE .MEDSUPPLY Qty: 300 3RF Rx Instructions: test blood sugar TID metformin 1,000 mg tablet 1,000 mg PO QAM Qty: 90 0RF Rx Instructions: TAKE 1 TABLET DAILY Breztri Aerosphere 160-9-4.8 mcg/actuation HFA aerosol inhaler 2 inh inhalation BID Qty: 10.7 2RF docusate sodium [Stool Softener] 100 mg tablet 100 mg PO DAILY multivitamin Tablet 1 tab PO QAM Lantus Solostar U-100 Insulin 100 unit/mL (3 mL) insulin pen 8 unit SUBCUT HS Adult 50 Plus Probiotic 4 billion cell capsule 4,000 mmu cells PO QPM Rx Instructions: administer with a meal Neilmed Sinus Rinse Complete Packet With Rinse Device See Rx Instructions .Route .COMPLEX Qty: 50 3RF Rx Instructions: use daily; fluticasone propionate [Flonase Allergy Relief] 50 mcg/actuation spray,suspension 1 spray intranasal BID Qty: 18.2 2RF Rx Instructions: administer into each nostril Ohtuvayre 3 mg/2.5 mL suspension for nebulization 3 mg inhalation BID Qty: 150 11RF ipratropium-albuterol 0.5 mg-3 mg(2.5 mg base)/3 mL solution for nebulization 3 ml inhalation QID PRN (Reason: shortness of breath or wheezing) Qty: 360 3RF PreserVision AREDS-2 250-90-40-1 mg Capsule 1 tab PO BID magnesium oxide 400 mg (241.3 mg magnesium) Tablet 400 mg PO BID Qty: 60 0RF Rx Instructions: OTC simvastatin 40 mg tablet 40 mg PO HS Rx Instructions: TAKE 1 TABLET AT BEDTIME pantoprazole 40 mg tablet,delayed release (DR/EC) 40 mg PO QAM Rx Instructions: TAKE 1 TABLET DAILY ropinirole 0.5 mg tablet 1.5 mg PO HS Rx Instructions: TAKE 3 TABLETS (1.5 MG) AT BEDTIME albuterol sulfate [Ventolin HFA] 90 mcg/actuation HFA aerosol inhaler 2 puff INHALATION Q4H PRN (Reason: Shortness Of Breath Or Wheezing) Rx Instructions: Patient has been using more due to recent illness Discontinued furosemide 20 mg tablet 20 mg PO QAM Qty: 30 4RF No Action cyanocobalamin (vitamin B-12) 1,000 mcg capsule 1,000 mcg PO 3XWK Rx Instructions: Thursday, Thursday Discharge Orders: Discharge Order (Routine); Ordered 10/05/24 Ordered By: Francine Sy Admission Data Admit Date/Time: 10/02/24 11:54 Attending Provider: Christie Flores Admit Provider: Escobar Cutler Primary Care Provider: Felicia Costa Other Providers: Kiya Luna; Len Hoskins Other Interventions: Discharge Summary Assessment (RN) Last Done: 10/05/24 16:35 Hospital Stay Data Consultations 10/02/24 11:46 ED Decision to Admit Stat Diagnostic Imagining Performed Chest X-Ray 10/02/24 09:14 XR chest 1V portable CLINICAL HISTORY: Dyspnea TECHNIQUE: Single frontal radiograph of the chest was obtained. Comparison: Comparison is made to chest radiograph 09/23/2024 FINDINGS: An implanted pacemaker is seen. The cardiomediastinal silhouette is stable. Right greater than left lower lung airspace opacity is seen. No evidence of pleural effusion or pneumothorax. IMPRESSION: Right greater than left lower lung airspace opacity. This may represent atelectasis, pneumonia, and/or aspiration. This is increased from prior exam. ACT 112: Negative or not required by law. Electronically signed by: Mak Edge M.D. 10/02/2024 10:45 AM Pending Results Patient Have Any Pending Studies at Discharge: No Discharge Instructions Given to Patient (Per Discharging Provider) Ms. Resendiz, You were hospitalized after having worsening shortness of breath feeling. You were found to have humanmetapneumavirus and a COPD exacerbation. You were treated with IV antibiotics and steroids and have gotten better. You will continue on a course of prednisone and Augmentin - both of these to start tomorrow morning 10/06. Continue your home inhalers and Mucinex. Continue to use the incentive spirometer. I have also prescribed a little bit of ativan you can use when you feel like you can't breathe but your pulse oximeter is saying otherwise. Only use this when you truly need it. You had a bump in your kidney function from the lasix you were given, it did come down prior to discharge. It is very important that you are staying extra hydrated over the next few days - drinking 2L of liquids a day. Please keep your appointment with pulmonology as scheduled for Thursday. No other changes to your home medications. Follow-up appointments: Make an appointment with your primary care physician within one week of discharge. A copy of this summary will be sent to them. Every time you see your primary care physician, or any other doctor, bring your medication list, and a list of questions. CONTACT YOUR PRIMARY CARE PROVIDER if you experience any of the following: Shortness of breath or difficulty breathing Fevers or chills Feeling tired with normal activity or experiencing dizziness or fainting Difficulty following your treatment plan, or difficulty taking medications CALL 911 OR GO TO THE EMERGENCY DEPARTMENT if you experience any of the following: Severe abdominal pain or nausea/vomiting Severe chest pain, or chest pain that radiates (moves) to your jaw or arm Sudden, severe shortness of breath or difficulty breathing Thank you for allowing us to participate in your care. Supervising Physician Co-Signing Physician Notes PA Supervision Note: I did not personally see or examine the patient today, but I verified all betancourt points of DALE Sy's assessment and plan with the following exceptions/additions: None Total Time Total Time Spent Total Time Spent (In Minutes): Time spent day of discharge 40 minutes including direct patient care, medication reconciliation, documentation, review of labs and images, and coordination of care. Coding Level of Care Code 11475 INP/OBS DISCH >30 MIN Diagnoses COPD exacerbation J44.1 Bilateral pneumonia J18.9 Human metapneumovirus pneumonia J12.3 Severe aortic stenosis I35.0 Acute kidney injury N17.9 Type 2 diabetes mellitus, with long-term current use of insulin E11.9; Z79.4
[2024-10-05 16:35] VITALS: PULSE 97
[2024-10-05] MEDS: AMOXICILLIN/CLAVULANATE 875 MG TAB PO ONE (17:39)
== END 2024-10-05 18:21 | disposition home or self-care (01) | DRG 190 ==
LOC: ED 09:08 → 2W 11:54 → SUATTDRO 11:54 → 2W 13:13
DX: J96.11 Chronic respiratory failure with hypoxia; Z79.01 Long term (current) use of 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; Z79.84 Long term (current) use of oral hypoglycemic drugs; J12.3 Human metapneumovirus pneumonia; Z79.4 Long term (current) use of insulin; D64.9 Anemia, unspecified; N17.9 Acute kidney failure, unspecified; Z95.0 Presence of cardiac pacemaker; J44.1 Chronic obstructive pulmonary disease with (acute) exacerbation; Z82.49 Family history of ischemic heart disease and other diseases of the circulatory system; I10 Essential (primary) hypertension; Z79.899 Other long term (current) drug therapy; E11.43 Type 2 diabetes mellitus with diabetic autonomic (poly)neuropathy; G47.33 Obstructive sleep apnea (adult) (pediatric); G25.81 Restless legs syndrome; I35.0 Nonrheumatic aortic (valve) stenosis; I48.0 Paroxysmal atrial fibrillation

== ENCOUNTER 2025-01-10 18:02 | Inpatient (IN) ==
[2025-01-10] MEDS: ALBUT/IPRATROP 3MG/0.5MG NEB 3 ML VIAL NEB STA (18:28)
[2025-01-10] MEDS: predniSONE 50 MG TAB PO STA (18:28)
[2025-01-10 18:32] LABS: Base Excess VBG 4.3 mEq/L; HCO3 VBG 32 mmol/L; Oxygen Saturation VBG < 60.0 %; PCO2 VBG 59 mmHg (38-50); PO2 VBG 31 mmHg; pH VBG 7.34 (7.36-7.41)
[2025-01-10 18:42] LABS: Hemoglobin 9.6 g/dl (12.0-16.0); Mean Corpuscular Hemoglobin 28.4 pg (25.0-34.0); Mean Corpuscular Volume 91.7 fL (80.0-100.0); Platelet Count 241 K/uL (130-400); RDW Coefficient of Variation 14.8 % (11.5-14.5); RDW Standard Deviation 49.9 fL (36.4-46.3); Red Blood Count 3.38 M/uL (4.20-5.40); White Blood Count 6.02 K/ul (4.8-10.8)
--- NOTE | 2025-01-10 18:53 | XRay Report ---
Clinical History: Chest pain Technique: A frontal view of the chest was obtained Comparison is made to the prior examination dated 10/02/2024 Findings: There has been interval improvement in the previously seen right middle lobe pneumonia. The heart is mildly enlarged. There is a left chest wall pacemaker device. No pleural effusion or pneumothorax is seen. There are unchanged calcified granulomas in the right lung base. There is suspected mild pulmonary vascular congestion No fracture is noted. No foreign body is seen Impression: 1. Interval improvement in right middle lobe pneumonia 2. Cardiomegaly and mild pulmonary vascular congestion 3. Unchanged right lung base nodules, likely calcified granulomas ACT 112: Positive. There are findings on this exam that require communication between the performing entity and the patient following Patient Test Result Information Act ([place] ACT 112) guidelines. Electronically signed by Carmelo Hartman 01-10-2025 6:53 PM
[2025-01-10 19:03] LABS: BUN Creatinine Ratio 17.3 (10-20); Calcium 9.6 mg/dl (8.6-10.3); Creatinine Clr Calc Pharmacy 49.6 ml/min; Potassium 4.6 mmol/L (3.5-5.1)
[2025-01-10 19:09] LABS: Troponin I High Sensitivity 12.7 pg/ml (0-14)
[2025-01-10 19:14] LABS: Influenza A virus by PCR Negative (Neg); Influenza B virus by PCR Negative (Neg); RSV by PCR Negative (Neg); SARS CoV2 RNA(COVID-19) Ceph NEGATIVE (Negative)
[2025-01-10 19:23] LABS: INR 0.9 (0.9-1.1); Partial Thromboplastin Time 28 Seconds (21-31); Prothrombin Time 10.1 Seconds (9.0-12.0)
[2025-01-10 19:32] LABS: Basophils # (auto) 0.03 K/uL (0.00-0.20); Basophils % (auto) 0.5 %; Eosinophils # (auto) 0.01 K/uL (0.00-0.50); Eosinophils % (auto) 0.2 %; Immature Granulocytes # (auto) 0.05 K/uL (0.01-0.20); Immature Granulocytes % (auto) 0.8 %; Lymphocytes # (auto) 0.41 K/uL (1.20-3.40); Lymphocytes % (auto) 6.8 %; Monocytes # (auto) 0.05 K/uL (0.11-0.59); Monocytes % (auto) 0.8 %; Neutrophils # (auto) 5.47 K/uL (1.40-6.50); Neutrophils % (auto) 90.9 %; Ovalocytes 1+; Polychromasia 1+
[2025-01-10] MEDS: AZITHROMYCIN 250 MG TAB PO ONE (19:34)
[2025-01-10] MEDS: cefTRIAXone SODIUM 2,000 MG/50 ML BAG IV STA (19:34)
[2025-01-10] MEDS: FUROSEMIDE 40 MG/4 ML VIAL IV ONE (19:35)
--- NOTE | 2025-01-10 20:11 | Emergency Department Note ---
History of Present Illness General Chief Complaint: Shortness of Breath/Dyspnea Stated Complaint: SOB Time Seen by Provider: 01/10/25 18:11 History of Present Illness Provider Complaint: shortness of breath and chest pain Onset (ago): week(s) (3) Consistency/Duration: + progressively worsening Relieved By: + nothing Exacerbated By: + exertion and + coughing Known history of: COPD, congestive heart failure and recurrent pneumonia Associated symptoms: + cough, + wheezing, + sputum production and + chest congestion; no fever, no orthopnea, no hemoptysis, no nausea/vomiting, no abdominal pain or no rash Related Data Home oxygen amount: 2 liters Home Medications Medication Instructions Recorded Confirmed Type multivitamin 1 tab PO QAM 04/18/21 01/10/25 History vit C 250 mg-vit E 90 mg-zinc 40 1 tab PO BID 07/21/22 01/10/25 History mg-copper 1 at-[id number] capsule (PreserVision AREDS-2) magnesium oxide 400 mg (241.3 mg 400 mg PO BID #60 tabs 07/24/22 01/10/25 Rx magnesium) tablet lancets 33 gauge #200 ea 03/06/23 01/10/25 Rx insulin glargine 100 unit/mL (3 8 unit subcut HS 06/24/23 01/10/25 History mL) subcutaneous pen (Lantus Solostar U-100 Insulin) lactobacillus combination no.9 4 4,000 mmu cells PO QPM 06/24/23 01/10/25 History billion cell capsule (Adult 50 Plus Probiotic) docusate sodium 100 mg tablet 100 mg PO BID 08/21/23 01/10/25 History (Stool Softener) nystatin-triamcinolone 100,000 1 applic topical TID PRN Unknown 01/07/24 01/10/25 Rx unit/gram-0.1 % topical ointment #180 grams ferrous sulfate 325 mg (65 mg 325 mg PO 3XWK 02/08/24 01/10/25 History iron) tablet insulin aspart U-100 100 unit/mL See Rx Instructions subcut 03/04/24 01/10/25 Rx (3 mL) subcutaneous pen (Novolog .COMPLEX #30 mL FlexPen U-100 Insulin aspart) blood sugar diagnostic (OneTouch #300 ea 05/09/24 01/10/25 Rx Verio test strips) fluticasone propionate 50 1 spray intranasal BID #18.2 mL 05/24/24 01/10/25 Rx mcg/actuation nasal spray,suspension (Flonase Allergy Relief) sodium chloride, sodium See Rx Instructions .Route 05/24/24 01/10/25 Rx bicarb-nasal rinse squeeze bottle .COMPLEX #50 ea with packet (Neilmed Sinus Rinse Complete with packet) ensifentrine 3 mg/2.5 mL 3 mg (2.5 mL) inhalation BID #150 07/18/24 01/10/25 Rx suspension for nebulization mL (Ohtuvayre) ipratropium 0.5 mg-albuterol 3 mg 3 ml inhalation QID PRN shortness 07/18/24 01/10/25 Rx (2.5 mg base)/3 mL nebulization of breath or wheezing #360 mL soln rivaroxaban 10 mg tablet (Xarelto) 10 mg PO QPM #90 tabs 08/29/24 01/10/25 Rx pantoprazole 40 mg tablet,delayed 40 mg PO QAM 10/02/24 01/10/25 History release ropinirole 0.5 mg tablet 1.5 mg PO HS 10/02/24 01/10/25 History simvastatin 40 mg tablet 40 mg PO HS 10/02/24 01/10/25 History lorazepam 0.5 mg tablet 0.25 mg (1/2 x 0.5 mg) PO TID PRN 10/05/24 01/10/25 Rx anxiety or shortness of breath #15 tabs cyanocobalamin (vitamin B-12) 1,000 mcg PO 3XWK 10/06/24 01/10/25 History 1,000 mcg capsule albuterol sulfate 90 mcg/actuation 2 puff inhalation Q4H PRN 10/07/24 01/10/25 Rx aerosol inhaler (Ventolin HFA) Shortness Of Breath Or Wheezing #8.5 grams budesonide 160 mcg-glycopyr 9 2 inh inhalation BID #10.7 grams 10/07/24 01/10/25 Rx mcg-formot 4.8 mcg/actuation HFA inhaler (Breztri Aerosphere) dupilumab 300 mg/2 mL subcutaneous 300 mg (2 mL) subcut .COMPLEX #4 mL 11/03/24 01/10/25 Rx pen injector pen needle, diabetic 31 gauge x #200 ea 11/21/24 01/10/25 Rx 3/16" (UltiCare Pen Needle) amoxicillin 500 mg tablet 500 mg PO BID 01/10/25 01/10/25 History metformin 1,000 mg tablet 1,000 mg PO QAM 01/10/25 01/10/25 History Allergies Allergy/AdvReac Type Severity Reaction Status Date / Time No Known Drug Allergies Allergy Verified 01/06/25 08:15 Past Med/Surg History Problem List (Updated 01/10/25 @ 20:11 by Ron Santo MD) Community acquired pneumonia (Acute) Congestive heart failure (Acute) Microscopic hematuria Aortic stenosis Abnormal chest CT Asthma-COPD overlap syndrome Systolic murmur COPD (chronic obstructive pulmonary disease) Selective deficiency of IgG (Chronic) Pernicious anemia (Chronic) Mediastinal adenopathy (Chronic) Iron deficiency anemia secondary to inadequate dietary iron intake High-grade 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 Infected hardware in left leg care home (current) use of 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 (Chronic) Paroxysmal atrial fibrillation Osteoporosis Nephrolithiasis Diabetic peripheral 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) Restless leg syndrome (Chronic) Vitamin D deficiency Obstructive sleep apnea (Chronic) Refuses device per records Multiple pulmonary nodules (Chronic) HTN (hypertension) (Chronic) Esophageal reflux (Chronic) Dyslipidemia (Chronic) Medical History Acute kidney injury Severe aortic stenosis Chronic respiratory failure with hypoxia Type 2 diabetes mellitus, with long-term current use of insulin SNHL (sensorineural hearing loss) BPPV (benign paroxysmal positional vertigo) On home O2 2 LPM continuous Osteoarthritis History of DVT (deep vein thrombosis) RLE post op (approximtely 2 years ago) Taking Xarelto Insomnia Peptic ulcer disease Hx of fracture of femur Surgical History History of lithotripsy History of eye removal Right History of appendectomy History of esophagogastroduodenoscopy (EGD) EGD (11/13/20): MAC at [facility]. 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 Hx of eye surgery left H/O total hip arthroplasty left Hx of total knee arthroplasty R/L History of tonsillectomy and adenoidectomy Hx of cholecystectomy H/O: hysterectomy Family History Father Cardiovascular disease Diabetes Asthma Heart disease Brother Diabetes Cardiac disorder Mother Breast cancer Other Hypertension No family history of adverse response to anesthesia No family history of bleeding disorder Denies family history of Ovarian cancer Prostate cancer Myocardial infarction Colorectal cancer Social History Smoking Status: Former smoker Second Hand Exposure: Yes; Do You Dip or Chew Tobacco: No; Hx Alcohol Use: No Hx Substance Use: No Preferred Language: Colombian Communication Ability: Effective Manager Talent Management Required: No Beliefs That Will Affect Care: None marital status: Current Living Situation: Spouse current occupational status: retired Feels Safe at Home: Yes Diet: regular Dental Care, Regularly: No Physical Activity Frequency: Does not Exercise Seatbelt Use: always Sunscreen Use: No Assistive Devices: Oxygen - Continuous, Walker, Wheelchair and Other Physical Exam 2 Vital Signs: Vital Signs - 24 hr 01/10/25 18:05 01/10/25 18:18 01/10/25 18:18 Temperature 36.7 C Temperature Source Temporal Artery Sc an Pulse Rate 76 Pulse Rate [Apical ] Respiratory Rate 20 Respiratory Effort / Characteristics Non-Labored Sponta neous Non-Labored Sponta neous Respiratory Depth Normal Normal Respiratory Patter n Regular Regular Blood Pressure 172/70 H Blood Pressure [Ri ght Arm] Blood Pressure Oralia n 104 Blood Pressure Oralia n [Right Arm] Pulse Oximetry 95 100 Oxygen Delivery Me thod Nasal Cannula Nasal Cannula Room Air Oxygen Flow Rate 3 2 3 Sepsis Recent Feve r Within 48 Hours No Sepsis New/Unexpla ined Change in Men ela Status N/A Sepsis Action Take n by Nursing No Action Required Oxygen Flow Rate - Titration 2 Pulse Oximetry Pos t Tiitration 98 01/10/25 18:18 01/10/25 18:25 01/10/25 18:27 Temperature Temperature Source Pulse Rate 75 77 Pulse Rate [Apical ] 75 Respiratory Rate 16 16 Respiratory Effort / Characteristics Non-Labored Sponta neous Respiratory Depth Normal Respiratory Patter n Blood Pressure Blood Pressure [Ri ght Arm] 196/85 H Blood Pressure Oralia n Blood Pressure Oralia n [Right Arm] 122 Pulse Oximetry 98 98 Oxygen Delivery Me thod Nasal Cannula Room Air Oxygen Flow Rate Sepsis Recent Feve r Within 48 Hours Sepsis New/Unexpla ined Change in Men ela Status Sepsis Action Take n by Nursing Oxygen Flow Rate - Titration Pulse Oximetry Pos t Tiitration Physical Exam: Physical Exam GENERAL: oriented to person, place, and time. appears well-developed and well- nourished. HENT: Exam performed. - Head: Normocephalic and atraumatic. EYES: Conjunctivae and EOM are normal. Right eye exhibits no discharge. Left eye exhibits no discharge. No scleral icterus. NECK: Normal range of motion. Neck supple. CV: Normal rate, regular rhythm, systolic murmur and intact distal pulses. Palpable radial pulses bue. PULM/CHEST: Diminished breath sounds bilaterally. ABD: The abdomen is soft and obese. There is no tenderness. NEURO: Motor and sensation grossly intact. SKIN: Skin is warm and dry. He is not diaphoretic. PSYCH: normal mood and affect. Behavior is normal. Judgment and thought content normal. Course Course 1810: The patient was evaluated in room C3. A complete history and physical exam was performed Cardiac monitoring: An order was placed for continuous cardiac monitoring. The monitor shows a rate of 80 with sinus rhythm interpreted by ar 1924: Vital signs stable. Labs are significant for a proBNP of 601. X-ray viewed by me shows cardiomegaly with cephalization and possible right lower lobe infiltrate. Patient will be treated with Rocephin and azithromycin and Lasix. [facility]. Administered Medications Discontinued Medications Albuterol (Albut/Ipratrop 3mg/0.5mg Neb 3 Ml Vial) 3 ml NEB NOW STA; Protocol Stop: 01/10/25 18:18 Last Admin: 01/10/25 18:28 Dose: 3 ml Documented By: LOWELL Azithromycin (Azithromycin 250 Mg Tab) 500 mg PO NOW ONE Stop: 01/10/25 19:24 Last Admin: 01/10/25 19:34 Dose: 500 mg Documented By: LOWELL Furosemide (Furosemide 40 Mg/4 Ml Vial) 40 mg IV ONE ONE Stop: 01/10/25 19:24 Last Admin: 01/10/25 19:35 Dose: 40 mg Documented By: LOWELL Ceftriaxone Sodium (Rocephin) 2,000 mg in 50 mls @ 100 mls/hr IV NOW STA Stop: 01/10/25 19:52 Last Admin: 01/10/25 19:34 Dose: 100 mls/hr Documented By: LOWELL Prednisone (Prednisone 50 Mg Tab) 50 mg PO NOW STA Stop: 01/10/25 18:18 Last Admin: 01/10/25 18:28 Dose: 50 mg Documented By: LOWELL Medical Decision Making Laboratory Data Attestation: I reviewed the patient's lab results. 01/10/25 18:22 01/10/25 18:22 Lab Results 01/10/25 01/10/25 Range/Units 18:20 18:22 WBC 6.02 (4.8-10.8) K/ul RBC 3.38 L (4.20-5.40) M/uL Hgb 9.6 L (12.0-16.0) g/dl Hct 31.0 L (37.0-47.0) % MCV 91.7 (80.0-100.0) fL MCH 28.4 (25.0-34.0) pg MCHC 31.0 L (32.0-36.0) g/dL RDW Std Deviation 49.9 H (36.4-46.3) fL RDW Coeff of Yevgeniy 14.8 H (11.5-14.5) % Plt Count 241 (130-400) K/uL MPV 12.0 (9.4-12.4) fL Immature Gran % (Auto) 0.8 % Neut % (Auto) 90.9 % Lymph % (Auto) 6.8 % [place] % (Auto) 0.8 % Eos % (Auto) 0.2 % Baso % (Auto) 0.5 % Neut # (Auto) 5.47 (1.40-6.50) K/uL Lymph # (Auto) 0.41 L (1.20-3.40) K/uL Independence # (Auto) 0.05 L (0.11-0.59) K/uL Eos # (Auto) 0.01 (0.00-0.50) K/uL Baso # (Auto) 0.03 (0.00-0.20) K/uL Immature Gran # (Auto) 0.05 (0.01-0.20) K/uL Polychromasia 1+ Ovalocytes 1+ PT 10.1 (9.0-12.0) Seconds INR 0.9 (0.9-1.1) APTT 28 (21-31) Seconds PTT Ratio 1.0 VBG pH 7.34 L (7.36-7.41) VBG pCO2 59 H (38-50) mmHg VBG pO2 31 mmHg VBG HCO3 32 mmol/L VBG O2 Saturation < 60.0 % VBG Base Excess 4.3 mEq/L Sodium 140 (136-145) mmol/L Potassium 4.6 (3.5-5.1) mmol/L Chloride 102 (98-107) mmol/L Carbon Dioxide 35 H (21-32) mmol/L Anion Gap 3 (3-11) BUN 18 (6-23) mg/dl Creatinine 1.04 (0.6-1.2) mg/dl Est Cr Clr Drug Dosing 49.6 ml/min eGFR 54.00 BUN/Creatinine Ratio 17.3 (10-20) Glucose 164 H (70-99(Fasting)) mg/dl Calcium 9.6 (8.6-10.3) mg/dl Troponin I High Sens 12.7 (0-14) pg/ml B-Natriuretic Peptide 601 H (0-100) pg/ml Lipase 14 (11-82) U/L SARS-CoV-2 (PCR) NEGATIVE (Negative) Influenza Type A (PCR) Negative (Neg) Influenza Type B (PCR) Negative (Neg) RSV (RT-PCR) Negative (Neg) Imaging Data Attestation: I personally reviewed and interpreted this imaging study as follows: My Impression: Chest x-ray: Right lower lobe infiltrate Radiologist's Impression: Chest X-Ray 01/10/25 18:13 Clinical History: Chest pain Technique: A frontal view of the chest was obtained Comparison is made to the prior examination dated 10/02/2024 Findings: There has been interval improvement in the previously seen right middle lobe pneumonia. The heart is mildly enlarged. There is a left chest wall pacemaker device. No pleural effusion or pneumothorax is seen. There are unchanged calcified granulomas in the right lung base. There is suspected mild pulmonary vascular congestion No fracture is noted. No foreign body is seen Impression: 1. Interval improvement in right middle lobe pneumonia 2. Cardiomegaly and mild pulmonary vascular congestion 3. Unchanged right lung base nodules, likely calcified granulomas ACT 112: Positive. There are findings on this exam that require communication between the performing entity and the patient following Patient Test Result Information Act ([place] ACT 112) guidelines. Electronically signed by Carmelo Hartman 01-10-2025 6:53 PM ECG Data Attestation: I personally reviewed and interpreted this ECG as follows: Interpretation: EKG shows sinus rhythm with a rate of 77. CO 296 QRS [address] elevation or ST depression bifascicular block present. No significant change from the EKG in September 2024. [facility] Narrative 1810: The patient was evaluated in room C3. A complete history and physical exam was performed Cardiac monitoring: An order was placed for continuous cardiac monitoring. The monitor shows a rate of 80 with sinus rhythm interpreted by ar 1924: Vital signs stable. Labs are significant for a proBNP of 601. X-ray viewed by ar shows cardiomegaly with cephalization and possible right lower lobe infiltrate. Patient will be treated with Rocephin and azithromycin and Lasix. Patient will be admitted to the [facility] hospitalist team. Impression & Plan Congestive heart failure, Community acquired pneumonia Discharge Plan Visit Data Chief Complaint: Shortness of Breath/Dyspnea Stated Complaint: SOB ED Provider: Ron Satno Discharge Problem: Congestive heart failure, Community acquired pneumonia Patient Disposition: Being Evaluated by Hospitalist Forms Stand Alone Forms: My [facility] Prescriptions Prescriptions: No Action Xarelto 10 mg tablet 10 mg PO QPM Qty: 90 1RF Rx Instructions: Per [facility] with evening meal ferrous sulfate 325 mg (65 mg iron) tablet 325 mg PO 3XWK Rx Instructions: M/W/F with food (DME) lancets 33 gauge misc See Rx Instructions .Route Qty: 200 3RF Rx Instructions: OneTouch Delica - Test blood sugars twice a day nystatin-triamcinolone 100,000-0.1 unit/gram-% ointment 1 applic topical TID PRN (Reason: Unknown) Qty: 180 3RF Rx Instructions: apply sparingly to affected areas insulin aspart U-100 [Novolog FlexPen U-100 Insulin] 100 unit/mL (3 mL) insulin pen See Rx Instructions subcut .COMPLEX MDD 20 units Qty: 30 3RF Rx Instructions: subcutaneously, three times a day with meals, and sliding scale for high blood sugar (DME) OneTouch Verio test strips Strip See Rx Instructions .ROUTE .MEDSUPPLY Qty: 300 3RF Rx Instructions: test blood sugar TID dupilumab 300 mg/2 mL pen injector 300 mg subcut .COMPLEX Qty: 4 11RF Rx Instructions: Inject 600mg SQ on Day 1, then inject 300mg SQ every 2 weeks; APPROVED GOOD 09/01/24-05/01/25 [id number] (DME) pen needle, diabetic [UltiCare Pen Needle] 31 gauge x 3/16" needle See Rx Instructions .Route Qty: 200 11RF Rx Instructions: Use 4 per day docusate sodium [Stool Softener] 100 mg tablet 100 mg PO BID multivitamin Tablet 1 tab PO QAM cyanocobalamin (vitamin B-12) 1,000 mcg capsule 1,000 mcg PO 3XWK Rx Instructions: Thursday, Thursday Lantus Solostar U-100 Insulin 100 unit/mL (3 mL) insulin pen 8 unit SUBCUT HS Adult 50 Plus Probiotic 4 billion cell capsule 4,000 mmu cells PO QPM Rx Instructions: administer with a meal Neilmed Sinus Rinse Complete Packet With Rinse Device See Rx Instructions .Route .COMPLEX Qty: 50 3RF Rx Instructions: use daily; fluticasone propionate [Flonase Allergy Relief] 50 mcg/actuation spray,suspension 1 spray intranasal BID Qty: 18.2 2RF Rx Instructions: administer into each nostril Breztri Aerosphere 160-9-4.8 mcg/actuation HFA aerosol inhaler 2 inh inhalation BID Qty: 10.7 3RF albuterol sulfate [Ventolin HFA] 90 mcg/actuation HFA aerosol inhaler 2 puff INHALATION Q4H PRN (Reason: Shortness Of Breath Or Wheezing) Qty: 8.5 3RF Ohtuvayre 3 mg/2.5 mL suspension for nebulization 3 mg inhalation BID Qty: 150 11RF ipratropium-albuterol 0.5 mg-3 mg(2.5 mg base)/3 mL solution for nebulization 3 ml inhalation QID PRN (Reason: shortness of breath or wheezing) Qty: 360 3RF PreserVision AREDS-2 250-90-40-1 mg Capsule 1 tab PO BID magnesium oxide 400 mg (241.3 mg magnesium) Tablet 400 mg PO BID Qty: 60 0RF Rx Instructions: OTC simvastatin 40 mg tablet 40 mg PO HS Rx Instructions: TAKE 1 TABLET AT BEDTIME pantoprazole 40 mg tablet,delayed release (DR/EC) 40 mg PO QAM Rx Instructions: TAKE 1 TABLET DAILY ropinirole 0.5 mg tablet 1.5 mg PO HS Rx Instructions: TAKE 3 TABLETS (1.5 MG) AT BEDTIME lorazepam 0.5 mg Tablet 0.25 mg PO TID PRN (Reason: anxiety or shortness of breath) Qty: 15 0RF amoxicillin 500 mg tablet 500 mg PO BID metformin 1,000 mg tablet 1,000 mg PO QAM Rx Instructions: TAKE 1 TABLET BY MOUTH EVERY MORNING Referrals Referrals: Felicia Costa MD [Primary Care Provider] - Discharge Problem: Congestive heart failure Qualifiers: Heart failure type: unspecified Heart failure chronicity: unspecified Qualified Code(s): I50.9 - Heart failure, unspecified Community acquired pneumonia Qualifiers: Laterality: right Lung location: lower lobe of lung Qualified Code(s): J18.9 - Pneumonia, unspecified organism
--- NOTE | 2025-01-10 20:53 | History & Physical Report ---
Date of Service January 10, 2025 Assessment & Plan (1) Congestive heart failure: (2) Asthma-COPD overlap syndrome: Plan 79 y/o female with PMH of COPD, Valvular heart disease, Moderate Aortic Stenosis, Paroxysmal afib, DM 2, hx of Av block, s/p cardiac pacemaker that presented to the ED due to ongoing weakness of 3 weeks of duration. Found with CHF exacerbation. Patient will be admitted for diuresis and further monitor of renal function. #Acute on chronic HFpEF (valvular) exacerbation - Worsening SOB in the last 3 weeks, edema and orthopnea - Weight gained - 3 Kg - Echo 10/02/24- EF 55-60%, mild concentric left ventricular hypertrophy, left atrial dilation, Moderate aortic stenosis. - Chest Xray- Cardiomegaly and mild Pulmonary vascular congestion - Patient previously on Lasix, discontinue on last admission due to DAVID (09/2024) - BNP 601 (166 in September) - One dose of Lasix 40 mg given in the ED, will hold further doses until assessment on renal function in AM - Daily weight, I/Os - CMP in the morning to monitor for renal function #COPD/Asthma | Chronic respiratory failure with hypoxia - co signs of exacerbation on admission - Baseline 2-3 L NC - s/p Ceftriaxone and Azithromycin as well as prednisone on the Ed - CXR- with improvement of right middle pneumonia - No WBC, no fever, Procal negative - Will hold continuation of steroids and Abx due to no signs of current infection at this time and no wheezing on exam - continue home meds - CBC AM # Paroxysmal Afib - continue Xarelto #Moderate Aortic stenosis - No surgery plans #DM2 - Hgb A1C - 5.8 (09/2024) - Lantus 8 qhs - Sliding Scale - Metformin held DVT prophylaxis- Xarelto Disposition- Will admit to Med/ Tel for further diuresis and monitor of renal function History of Present Illness Primary Care Provider: Felicia Costa MD 79 y/o female with PMH of COPD, Valvular heart disease, Moderate Aortic Stenosis, Paroxysmal afib, DM 2, hx of Av block, s/p cardiac pacemaker that presented to the ED due to ongoing weakness of 3 weeks of duration. Patient does have a chronic respiratory failure with hypoxia with requirement of 2 L NC. States she had been feeling more tired in the past 3 weeks. Had been sleeping on a recliner. she used a wheelchair for transport but states she can ambulate short distances. Recently she is not able to do that due to worsening. States having increased of lower extremities edema. Denied any chills or fevers. Denied any frequency or urgency. no sick contacts. Denied any abdominal pain, nausea or vomiting. Denied any chest pain. Allergies Allergy/AdvReac Type Severity Reaction Status Date / Time No Known Drug Allergies Allergy Verified 01/06/25 08:15 Home Medications Medication Instructions Recorded Confirmed Type multivitamin 1 tab PO QAM 04/18/21 01/10/25 History vit C 250 mg-vit E 90 mg-zinc 40 1 tab PO BID 07/21/22 01/10/25 History mg-copper 1 [id number] capsule (PreserVision AREDS-2) magnesium oxide 400 mg (241.3 mg 400 mg PO BID #60 tabs 07/24/22 01/10/25 Rx magnesium) tablet lancets 33 gauge #200 ea 03/06/23 01/10/25 Rx insulin glargine 100 unit/mL (3 8 unit subcut HS 06/24/23 01/10/25 History mL) subcutaneous pen (Lantus Solostar U-100 Insulin) lactobacillus combination no.9 4 4,000 mmu cells PO QPM 06/24/23 01/10/25 History billion cell capsule (Adult 50 Plus Probiotic) docusate sodium 100 mg tablet 100 mg PO BID 08/21/23 01/10/25 History (Stool Softener) nystatin-triamcinolone 100,000 1 applic topical TID PRN Unknown 01/07/24 01/10/25 Rx unit/gram-0.1 % topical ointment #180 grams ferrous sulfate 325 mg (65 mg 325 mg PO 3XWK 02/08/24 01/10/25 History iron) tablet insulin aspart U-100 100 unit/mL See Rx Instructions subcut 03/04/24 01/10/25 Rx (3 mL) subcutaneous pen (Novolog .COMPLEX #30 mL FlexPen U-100 Insulin aspart) blood sugar diagnostic (OneTouch #300 ea 05/09/24 01/10/25 Rx Verio test strips) fluticasone propionate 50 1 spray intranasal BID #18.2 mL 05/24/24 01/10/25 Rx mcg/actuation nasal spray,suspension (Flonase Allergy Relief) sodium chloride, sodium See Rx Instructions .Route 05/24/24 01/10/25 Rx bicarb-nasal rinse squeeze bottle .COMPLEX #50 ea with packet (Neilmed Sinus Rinse Complete with packet) ensifentrine 3 mg/2.5 mL 3 mg (2.5 mL) inhalation BID #150 07/18/24 01/10/25 Rx suspension for nebulization mL (Ohtuvayre) ipratropium 0.5 mg-albuterol 3 mg 3 ml inhalation QID PRN shortness 07/18/24 01/10/25 Rx (2.5 mg base)/3 mL nebulization of breath or wheezing #360 mL soln rivaroxaban 10 mg tablet (Xarelto) 10 mg PO QPM #90 tabs 08/29/24 01/10/25 Rx pantoprazole 40 mg tablet,delayed 40 mg PO QAM 10/02/24 01/10/25 History release ropinirole 0.5 mg tablet 1.5 mg PO HS 10/02/24 01/10/25 History simvastatin 40 mg tablet 40 mg PO HS 10/02/24 01/10/25 History lorazepam 0.5 mg tablet 0.25 mg (1/2 x 0.5 mg) PO TID PRN 10/05/24 01/10/25 Rx anxiety or shortness of breath #15 tabs cyanocobalamin (vitamin B-12) 1,000 mcg PO 3XWK 10/06/24 01/10/25 History 1,000 mcg capsule albuterol sulfate 90 mcg/actuation 2 puff inhalation Q4H PRN 10/07/24 01/10/25 Rx aerosol inhaler (Ventolin HFA) Shortness Of Breath Or Wheezing #8.5 grams budesonide 160 mcg-glycopyr 9 2 inh inhalation BID #10.7 grams 10/07/24 01/10/25 Rx mcg-formot 4.8 mcg/actuation HFA inhaler (Breztri Aerosphere) dupilumab 300 mg/2 mL subcutaneous 300 mg (2 mL) subcut .COMPLEX #4 mL 11/03/24 01/10/25 Rx pen injector pen needle, diabetic 31 gauge x #200 ea 11/21/24 01/10/25 Rx 3/16" (UltiCare Pen Needle) amoxicillin 500 mg tablet 500 mg PO BID 01/10/25 01/10/25 History metformin 1,000 mg tablet 1,000 mg PO QAM 01/10/25 01/10/25 History Past Med/Surg History Problem List (Updated 01/10/25 @ 20:11 by Ron Santo MD) Community acquired pneumonia (Acute) Congestive heart failure (Acute) Microscopic hematuria Aortic stenosis Abnormal chest CT Asthma-COPD overlap syndrome Systolic murmur COPD (chronic obstructive pulmonary disease) Selective deficiency of IgG (Chronic) Pernicious anemia (Chronic) Mediastinal adenopathy (Chronic) Iron deficiency anemia secondary to inadequate dietary iron intake High-grade 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 Infected hardware in left leg nursing home (current) use of 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 (Chronic) Paroxysmal atrial fibrillation Osteoporosis Nephrolithiasis Diabetic peripheral 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) Restless leg syndrome (Chronic) Vitamin D deficiency Obstructive sleep apnea (Chronic) Refuses device per records Multiple pulmonary nodules (Chronic) HTN (hypertension) (Chronic) Esophageal reflux (Chronic) Dyslipidemia (Chronic) Medical History Acute kidney injury Severe aortic stenosis Chronic respiratory failure with hypoxia Type 2 diabetes mellitus, with long-term current use of insulin SNHL (sensorineural hearing loss) BPPV (benign paroxysmal positional vertigo) On home O2 2 LPM continuous Osteoarthritis History of DVT (deep vein thrombosis) RLE post op (approximtely 2 years ago) Taking Xarelto Insomnia Peptic ulcer disease Hx of fracture of femur Surgical History History of lithotripsy History of eye removal Right History of appendectomy History of esophagogastroduodenoscopy (EGD) EGD (11/13/20): MAC at [facility]. 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 Hx of eye surgery left H/O total hip arthroplasty left Hx of total knee arthroplasty R/L History of tonsillectomy and adenoidectomy Hx of cholecystectomy H/O: hysterectomy Family History Father Cardiovascular disease Diabetes Asthma Heart disease Brother Diabetes Cardiac disorder Mother Breast cancer Other Hypertension No family history of adverse response to anesthesia No family history of bleeding disorder Denies family history of Ovarian cancer Prostate cancer Myocardial infarction Colorectal cancer Social History Smoking Status: Never smoker Second Hand Exposure: Yes; Do You Dip or Chew Tobacco: No; Hx Alcohol Use: No Hx Substance Use: No Preferred Language: Citizen Of [place] Communication Ability: Effective Management Professor Required: No Beliefs That Will Affect Care: None marital status: Current Living Situation: Spouse current occupational status: retired Other Information That Helps Us Care for You: No Feels Safe at Home: Yes Safety Concerns: Feels Safe At This Time Diet: regular Dental Care, Regularly: No Physical Activity Frequency: Does not Exercise Seatbelt Use: always Sunscreen Use: No Assistive Devices: Glasses and Oxygen - Continuous Review of Systems Review of Systems: as per HPI Physical Exam Constitutional: well developed, well nourished and + obese; no acute distress and not ill appearing ENMT: external ear and nose normal, oropharynx normal Respiratory: no respiratory distress and no labored breathing Auscultation: + diminished lung sounds; no wheezes Cardiovascular: Rate/Rhythm: regular rate and regular rhythm Heart Sounds: normal S1 and normal S2 Extremities: + edema Gastrointestinal (Abdomen): normal bowel sounds, soft, nontender, no hepatosplenomegaly Skin: no rashes, warm and dry Results & Data Results & Data Vital Signs (Past 12 Hours) Vital Signs Temp Pulse Pulse Resp BP BP Pulse Ox 01/10/25 19:24 76 20 182/84 H 97 01/10/25 18:27 75 16 196/85 H 98 01/10/25 18:25 77 16 98 01/10/25 18:18 75 01/10/25 18:18 100 01/10/25 18:18 01/10/25 18:05 36.7 C 76 20 172/70 H 95 O2 Del Method O2 Flow Rate 01/10/25 19:24 Nasal Cannula 2 01/10/25 18:27 Room Air 01/10/25 18:25 Nasal Cannula 01/10/25 18:18 01/10/25 18:18 Room Air 3 01/10/25 18:18 Nasal Cannula 2 01/10/25 18:05 Nasal Cannula 3 Code Status & VTE Plan VTE Prophylaxis Plan VTE Prophylaxis will be ordered: Yes Supervising Physician Co-Signing Physician Notes I personally saw and examined the patient. I independently reviewed the labs, EKG, imaging, problem list, medication list, past medical history and family history. I verified all betancourt points and agree with resident physician Dr Mauricio Kraus MD with the following exceptions and/or additions: 79-year-old female presents to the ER with progressive worsening shortness of breath for the last 3 weeks with bilateral leg edema and orthopnea. Lasix discontinued in September due to mild DAVID in the setting of COPD exacerbation and increased diuretics. She was usually taking Lasix 20 mg p.o. daily. She also reports to increase salt intake over the Holidays. O/E HS RRR, systolic murmur, RUSB 3/6, Chest bibasal crackles, 1+ bilateral leg edema A/P Acute on chronic HFpEF (aortic stenosis, moderate on last echo) - suspect exacerbation due to increased salt intake and Lasix being discontinued last admission. Cr stable on AM labs, gentle diuresis recommended due to prior DAVID with therefore will start Lasix 20mg IV daily. Strict I&Os. Ddaily standing weights (1) Congestive heart failure Heart failure chronicity: unspecified Heart failure type: unspecified Qualified Code(s): I50.9 - Heart failure, unspecified
[2025-01-10] MEDS ORDERED: CARBOHYDRATES FOR HYPOGLYCEMIA PO PRN (23:09)
[2025-01-10] MEDS ORDERED: GLUCOSE 10 TAB/TUBE PO PRN (23:09)
[2025-01-10] MEDS ORDERED: DEXTROSE 50% 50 ML SYRINGE IV PRN (23:09)
[2025-01-10] MEDS ORDERED: GLUCAGON FOR INJ 1 MG VIAL SQ PRN (23:09)
[2025-01-10] MEDS ORDERED: NYSTATIN/TRIAMCIN OINT 15 GM TUBE EXT PRN (23:09)
[2025-01-10] MEDS ORDERED: GLUCOSE 40% GEL 15 GM TUBE PO PRN (23:09)
[2025-01-11] MEDS: DOCUSATE SODIUM 100 MG CAP PO SCH (00:23)
[2025-01-11] MEDS: FLUTICASONE PROPIONATE NA SPR 16 GM BTL NAE SCH (00:23)
[2025-01-11] MEDS: ALBUTEROL HFA 8 GM INHALER INH PRN (00:24)
[2025-01-11] MEDS: LANTUS PER UNIT CHARGE SQ SCH (00:24)
[2025-01-11] MEDS: INSULIN ASPART PER UNIT CHARGE SC SCH (00:24)
[2025-01-11] MEDS: ADVANCED PROBIOTIC 625 MG CAPSULE PO SCH (00:25)
[2025-01-11] MEDS: MAGNESIUM OXIDE 400 MG TAB PO SCH (00:25)
[2025-01-11] MEDS: RIVAROXABAN 10 MG TABLET PO SCH (00:26)
[2025-01-11] MEDS: SIMVASTATIN 40 MG TAB PO SCH (00:26)
[2025-01-11] MEDS: rOPINIRole HCL 1 MG TABLET PO SCH (00:26)
[2025-01-11] MEDS: ACETAMINOPHEN 325 MG TAB PO PRN (04:11)
[2025-01-11] MEDS: ALBUT/IPRATROP 3MG/0.5MG NEB 3 ML VIAL INH PRN (04:13)
[2025-01-11 05:00] LABS: Basophils # (auto) 0.01 K/uL (0.00-0.20); Basophils % (auto) 0.2 %; Hematocrit (blood only) 28.6 % (37.0-47.0); Immature Granulocytes # (auto) 0.03 K/uL (0.01-0.20); Immature Granulocytes % (auto) 0.6 %; Lymphocytes # (auto) 0.57 K/uL (1.20-3.40); Lymphocytes % (auto) 11.7 %; Mean Corpuscular Hemoglobin 28.3 pg (25.0-34.0); Mean Corpuscular Hgb Conc 31.5 g/dL (32.0-36.0); Mean Corpuscular Volume 89.9 fL (80.0-100.0); Mean Platelet Volume 12.2 fL (9.4-12.4); Monocytes # (auto) 0.04 K/uL (0.11-0.59); Monocytes % (auto) 0.8 %; Neutrophils # (auto) 4.21 K/uL (1.40-6.50); Neutrophils % (auto) 86.7 %; Platelet Count 218 K/uL (130-400); RDW Standard Deviation 49.4 fL (36.4-46.3); Red Blood Count 3.18 M/uL (4.20-5.40); White Blood Count 4.86 K/ul (4.8-10.8)
[2025-01-11 05:13] LABS: Albumin Globulin Ratio 1.6 (0.9-2); Albumin Level 3.6 gm/dl (3.4-5.0); BUN Creatinine Ratio 18.3 (10-20); Bilirubin,Total 0.3 mg/dl (0.2-1.0); Creatinine Clr Calc Pharmacy 47.3 ml/min; Globulin 2.3 gm/dl (2.5-4.0); Magnesium 1.8 mg/dl (1.7-2.4); Potassium 4.3 mmol/L (3.5-5.1); Total Protein 5.9 gm/dl (6.0-8.3)
[2025-01-11 05:30] LABS: INR 1.1 (0.9-1.1)
--- NOTE | 2025-01-11 05:40 | Billing Data ---
Date of Service January 10, 2025 Coding Level of Care Code 13380 INT INP/OBS CARE
[2025-01-11 08:21] LABS: Estimated Average Glucose 117 mg/dl; Hemoglobin A1C 5.7 % (4.5-5.6)
[2025-01-11] MEDS: CYANOCOBALAMIN (B-12) 500 MCG TABLET PO SCH (08:55)
[2025-01-11] MEDS: FERROUS SULFATE 325 MG TAB PO SCH (08:55)
[2025-01-11] MEDS: PANTOprazole 40 MG TAB PO SCH (08:56)
[2025-01-11] MEDS: MULTIVITAMIN TAB PO SCH (08:56)
[2025-01-11] MEDS: FUROSEMIDE INJ 20 MG/2 ML VIAL IV SCH (08:56)
[2025-01-11] MEDS: FLUTICASONE FUROATE 200MCG 14 PUFFS/INHALER INH SCH (08:56)
[2025-01-11] MEDS: UMECLIDINIUM/VILANTEROL 62.5/25MCG 7 PUFFS/INHALER INH SCH (08:56)
--- NOTE | 2025-01-11 10:24 | Electrocardiogram Report ---
Test Reason : Blood Pressure : */* mmHG Vent. Rate : 77 BPM Atrial Rate : 77 BPM P-R Int : 296 ms QRS Dur : 170 ms QT Int : 420 ms P-R-T Axes : 40 -58 23 degrees QTcB Int : 475 ms Sinus rhythm with 1st degree A-V block with occasional Premature ventricular complexes Right bundle branch block Left anterior fascicular block Bifascicular block Minimal voltage criteria for LVH, may be normal variant ( R in aVL ) Abnormal ECG When compared with ECG of 02-Oct-2024 09:14, Premature ventricular complexes are now Present Criteria for Septal infarct are no longer Present Nonspecific T wave abnormality now evident in Inferior leads Confirmed by Rajendra Daniels ([id number]) on 01/11/2025 10:24:00 AM Referred By: REFERRED SELF Confirmed By: Rajenrda Daniels
--- NOTE | 2025-01-11 16:33 | Hospitalist Progress Note ---
Date of Service January 11, 2025 Assessment & Plan (1) Congestive heart failure: (2) Asthma-COPD overlap syndrome: Plan 79yo female with chronic hypoxic resp failure, chronic HFpEF, Moderate Aortic Stenosis, Paroxysmal afib, DM 2, hx of Av block s/p cardiac pacemaker. Presented to the ED due to ongoing weakness of 3 weeks of duration. #Acute on chronic HFpEF exacerbation - -already improved with diuresis -per records she is quite diuretic sensitive -will hold further diuresis until am labs tomorrow return -repeat echo while here - was due for such in early January #Chest pain episode at home - -resolved with her 's SL nitro x 1 -previous CT chest with coronary calcifications -EKG with RBBB (chronic) but no ischemic change -previous echo without LV WMAs -no history of heart cath, but would need such prior to TAVR for her -will start with repeat echo and go from there #COPD/Asthma | Chronic respiratory failure with hypoxia and hypercapnia - -NO signs of exacerbation at this time -stable on home O2 amount -defer on additional steroids/abx -cont home inhalers, etc. # Paroxysmal Afib - -request pacemaker interrogation to see what a.fib burden is -continue Xarelto #Moderate Aortic stenosis - -was due for repeat echo in early January -will simply get one now #DM2 - -Hgb A1C - 5.8% (09/2024) -cont Lantus 8 units HS -cont novolog Sliding Scale -Metformin held #anemia - -chronic, baseline about 9 -hemoglobin here stable recent Fe studies, B12, folate wnl (ferritin wnl, transferrin sat 18%) -etiology?? -trend while here will obtain PT/OT due to weakness Admission and Anticipated Discharge Date Admission Date: January 10, 2025 Subjective patient reports that she had an episode of chest pain - central - at home prior to admission was walking a short distance which brought on the pain her had SL nitro and she took one and this resolved the pain within a few minutes she has had other episodes of "minor" pain in the past but not this severe breathing already improved vs yesterday during my visit she was resting comfortably in the bed - lying nearly flat she is on chronic NC O2 at home - 2-3 L was supposed to have an echo in early January for her known she asks about valve surgery and what that entails Review of Systems Review of Systems: CV - no chest pain since admission pulm - no significant cough GI - no N/V/abd pain gen - states appetite is always low; this is not new; "I don't eat big meals" Physical Exam Physical Exam: gen - NAD, lying comfortably in bed; frail appearing neck - no JVD heart - RRR, s1 s2, 2-3/6 holosystolic murmur heard loudest at the RUSB; s2 can be heard lungs - minimal rales b/l bases, otherwise CTA b/l; no wheeze; no increased work of breathing abd - soft NT ND BS+ ext - no edema, pulses 2+ b/l psych - a/o x 3 Results & Data Results & Data Vital Signs (Past 12 Hours) Vital Signs Temp Pulse Pulse Resp BP Pulse Ox O2 Del Method 01/11/25 16:15 36.5 C 67 18 177/67 H 100 Nasal Cannula 01/11/25 15:30 73 18 154/60 H 99 Nasal Cannula 01/11/25 14:57 67 01/11/25 09:08 66 19 157/70 H 99 Nasal Cannula 01/11/25 06:57 66 O2 Flow Rate 01/11/25 16:15 2 01/11/25 15:30 2 01/11/25 14:57 01/11/25 09:08 2 01/11/25 06:57 Laboratory Results Laboratory Results - last 48 hr 01/10/25 01/10/25 01/10/25 18:20 18:22 18:32 WBC 6.02 RBC 3.38 L Hgb 9.6 L Hct 31.0 L MCV 91.7 MCH 28.4 MCHC 31.0 L RDW Std Deviation 49.9 H RDW Coeff of Yevgeniy 14.8 H Plt Count 241 MPV 12.0 Immature Gran % (Auto) 0.8 Neut % (Auto) 90.9 Lymph % (Auto) 6.8 [place] % (Auto) 0.8 Eos % (Auto) 0.2 Baso % (Auto) 0.5 Neut # (Auto) 5.47 Lymph # (Auto) 0.41 L [place] # (Auto) 0.05 L Eos # (Auto) 0.01 Baso # (Auto) 0.03 Immature Gran # (Auto) 0.05 Polychromasia 1+ Ovalocytes 1+ PT 10.1 INR 0.9 APTT 28 PTT Ratio 1.0 VBG pH 7.34 L VBG pCO2 59 H VBG pO2 31 VBG HCO3 32 VBG O2 Saturation < 60.0 VBG Base Excess 4.3 Sodium 140 Potassium 4.6 Chloride 102 Carbon Dioxide 35 H Anion Gap 3 BUN 18 Creatinine 1.04 Est Cr Clr Drug Dosing 49.6 eGFR 54.00 BUN/Creatinine Ratio 17.3 Glucose 164 H POC Glucose Estimat Average Glucose Hemoglobin A1c Calcium 9.6 Magnesium Total Bilirubin AST ALT Alkaline Phosphatase Troponin I High Sens 12.7 B-Natriuretic Peptide 601 H Total Protein Albumin Globulin Albumin/Globulin Ratio Lipase 14 Procalcitonin 0.16 SARS-CoV-2 (PCR) NEGATIVE Influenza Type A (PCR) Negative Influenza Type B (PCR) Negative RSV (RT-PCR) Negative 01/11/25 01/11/25 01/11/25 00:13 04:07 07:36 WBC 4.86 RBC 3.18 L Hgb 9.0 L Hct 28.6 L MCV 89.9 MCH 28.3 MCHC 31.5 L RDW Std Deviation 49.4 H RDW Coeff of Yevgeniy 15.0 H Plt Count 218 MPV 12.2 Immature Gran % (Auto) 0.6 Neut % (Auto) 86.7 Lymph % (Auto) 11.7 [place] % (Auto) 0.8 Eos % (Auto) 0.0 Baso % (Auto) 0.2 Neut # (Auto) 4.21 Lymph # (Auto) 0.57 L [place] # (Auto) 0.04 L Eos # (Auto) 0.00 Baso # (Auto) 0.01 Immature Gran # (Auto) 0.03 Polychromasia Ovalocytes PT 12.0 INR 1.1 APTT PTT Ratio VBG pH VBG pCO2 VBG pO2 VBG HCO3 VBG O2 Saturation VBG Base Excess Sodium 140 Potassium 4.3 Chloride 100 Carbon Dioxide 34 H Anion Gap 6 BUN 20 Creatinine 1.09 Est Cr Clr Drug Dosing 47.3 eGFR 51.04 BUN/Creatinine Ratio 18.3 Glucose 184 H POC Glucose 174 H 201 H Estimat Average Glucose 117 Hemoglobin A1c 5.7 H Calcium 9.0 Magnesium 1.8 Total Bilirubin 0.3 AST 11 L ALT 7 Alkaline Phosphatase 54 Troponin I High Sens B-Natriuretic Peptide Total Protein 5.9 L Albumin 3.6 Globulin 2.3 L Albumin/Globulin Ratio 1.6 Lipase Procalcitonin SARS-CoV-2 (PCR) Influenza Type A (PCR) Influenza Type B (PCR) RSV (RT-PCR) 01/11/25 01/11/25 11:27 16:49 WBC RBC Hgb Hct MCV MCH MCHC RDW Std Deviation RDW Coeff of Yevgeniy Plt Count MPV Immature Gran % (Auto) Neut % (Auto) Lymph % (Auto) [place] % (Auto) Eos % (Auto) Baso % (Auto) Neut # (Auto) Lymph # (Auto) [place] # (Auto) Eos # (Auto) Baso # (Auto) Immature Gran # (Auto) Polychromasia Ovalocytes PT INR APTT PTT Ratio VBG pH VBG pCO2 VBG pO2 VBG HCO3 VBG O2 Saturation VBG Base Excess Sodium Potassium Chloride Carbon Dioxide Anion Gap BUN Creatinine Est Cr Clr Drug Dosing eGFR BUN/Creatinine Ratio Glucose POC Glucose 135 H 125 H Estimat Average Glucose Hemoglobin A1c Calcium Magnesium Total Bilirubin AST ALT Alkaline Phosphatase Troponin I High Sens B-Natriuretic Peptide Total Protein Albumin Globulin Albumin/Globulin Ratio Lipase Procalcitonin SARS-CoV-2 (PCR) Influenza Type A (PCR) Influenza Type B (PCR) RSV (RT-PCR) PG Care Time/CCT Total # of Minutes Spent Total Time Spent with Patient: Total time spent is greater than 50% in coordination of care (as documented) at patient's floor/unit and/or counseling patient: Coding Level of Care Code 97634 SUB INP/OBS CARE 2/35MIN Diagnoses Congestive heart failure I50.9 Heart failure chronicity: unspecified Heart failure type: unspecified Asthma-COPD overlap syndrome J44.89 (1) Congestive heart failure Heart failure chronicity: unspecified Heart failure type: unspecified Qualified Code(s): I50.9 - Heart failure, unspecified
[2025-01-11] MEDS: ENSIFENTRINE INH SCH (21:32)
[2025-01-11] MEDS: LORazepam 0.5 MG TAB PO PRN (21:41)
[2025-01-12 06:25] LABS: BUN Creatinine Ratio 23.1 (10-20); Calcium 8.8 mg/dl (8.6-10.3); Creatinine Clr Calc Pharmacy 37.7 ml/min; Magnesium 1.9 mg/dl (1.7-2.4); Potassium 4.2 mmol/L (3.5-5.1)
--- NOTE | 2025-01-12 09:35 | XCELERA ---
[id number]
--- NOTE | 2025-01-12 20:21 | Hospitalist Progress Note ---
"Date of Service January 12, 2025 Assessment & Plan (1) Congestive heart failure: (2) Asthma-COPD overlap syndrome: Plan 79yo female with chronic hypoxic resp failure, chronic HFpEF, Moderate Aortic Stenosis, Paroxysmal afib, DM 2, hx of Av block s/p cardiac pacemaker. Presented to the ED due to ongoing weakness of 3 weeks of duration. Had evidence of acute/chronic CHF at time of admission. #Acute on chronic HFpEF exacerbation - -acute decompensation resolved -quickly resolved with diuresis and her creatinine bumped very early in the diuresis process -per records she is quite diuretic sensitive -will hold further diuresis due to rise in Cr to 1.3 -repeat echo with preserved EF and her is stable (moderate in severity) #Chest pain episode at home - -resolved with her 's SL nitro x 1 -previous CT chest with coronary calcifications -EKG with RBBB (chronic) but no ischemic change -previous echo without LV WMAs; repeat echo this admit unchanged -no history of heart cath, but would need such prior to TAVR for her - but she is not close to needing the TAVR given the stability of the valve -discussed the chest pain with Dr Mariano, her primary boom boss -for now will observe and not pursue ischemic w/u (e.g. stress test, etc) -if she has recurrent episodes then at that point will do work-up -will have her see Dr Mariano shortly after discharge #COPD/Asthma | Chronic respiratory failure with hypoxia and hypercapnia - -no signs of exacerbation at this time -stable on home O2 amount -defer on additional steroids/abx -cont home inhalers, etc. # Paroxysmal Afib - -pacemaker interrogation with minimal to no PAF -continue Xarelto #Moderate Aortic stenosis - -stable moderate on echo this admission (valve area 0.9) -doubt it is contributing to any presenting symptoms at this time #DM2 - -Hgb A1C - 5.8% (09/2024) -multiple lows while here -stop lantus -loosen novolog SSI; get rid of carb coverage -at discharge consider stopping all insulins and just using low-dose metformin #anemia - -chronic, baseline about 9 -hemoglobin here stable recent Fe studies, B12, folate wnl (ferritin wnl, transferrin sat 18%) -etiology?? -will send message to Dr Wheat her primary golf course patroller -she was to have seen Dr Wheat this week but missed the appointment due to this hospitalization -will need to reschedule such PT/OT evals pending due to weakness ensure safe for d/c home care d/w Dr Mariano care d/w her at bedside today Admission and Anticipated Discharge Date Admission Date: January 10, 2025 Subjective breathing is back at baseline today main complaint is that of generalized weakness, including her arms she is interested in doing PT at home she really wants to go home today at bedside during the visit pacemaker interrogation done - no recent arrhythmia detected no recurrent chest pain episodes I discussed her case with Dr Mariano - we agree to not pursue additional ischemic evaluation at this time, but if she has recurrent symptoms a stress test could be pursued as outpatient in the near-future she has f/u with Dr Mariano in February 2025 eating fair no other new complaints did have low blood sugars earlier today Review of Systems Review of Systems: gen - no fevers or chills cv - no chest pain spells; no edema; no orthopnea overnight pulm - PRIDE at baseline GI - no N/V Physical Exam Physical Exam: gen - NAD, sitting in chair, looks ok today neck - no JVD heart - RRR, s1 s2, 2-3/6 holosystolic murmur heard loudest at the RUSB; s2 can be heard lungs - CTA b/l; no wheeze; no increased work of breathing; no rales abd - soft NT ND BS+ ext - no edema, pulses 2+ b/l psych - a/o x 3 Results & Data Results & Data Vital Signs (Past 12 Hours) Vital Signs Temp Pulse Resp BP Pulse Ox O2 Del Method O2 Flow Rate 01/12/25 20:13 36.6 C 69 20 133/65 98 Nasal Cannula 2 01/12/25 19:40 60 17 98 Room Air 1 01/12/25 15:37 36.6 C 61 20 148/56 H 98 Nasal Cannula 1.5 01/12/25 11:15 36.6 C 62 20 161/61 H 96 Room Air Laboratory Results Laboratory Results - last 24 hr 01/11/25 01/12/25 01/12/25 20:17 05:38 07:54 Sodium 141 Potassium 4.2 Chloride 100 Carbon Dioxide 38 H Anion Gap 3 BUN 31 H Creatinine 1.34 H Est Cr Clr Drug Dosing 37.7 eGFR 39.84 BUN/Creatinine Ratio 23.1 H Glucose 79 POC Glucose 118 H 71 Calcium 8.8 Magnesium 1.9 01/12/25 01/12/25 01/12/25 11:47 14:25 16:51 Sodium Potassium Chloride Carbon Dioxide Anion Gap BUN Creatinine Est Cr Clr Drug Dosing eGFR BUN/Creatinine Ratio Glucose POC Glucose 81 61 L* 91 Calcium Magnesium PG Care Time/CCT Total # of Minutes Spent Total Time Spent with Patient: Total time spent is greater than 50% in coordination of care (as documented) at patient's floor/unit and/or counseling patient: Coding Level of Care Code 68757 SUB INP/OBS CARE 350MIN Diagnoses Congestive heart failure I50.9 Heart failure chronicity: unspecified Heart failure type: unspecified Asthma-COPD overlap syndrome J44.89 (1) Congestive heart failure Heart failure chronicity: unspecified Heart failure type: unspecified Qualified Code(s): I50.9 - Heart failure, unspecified"
[2025-01-12] MEDS ORDERED: LANTUS PER UNIT CHARGE SQ SCH (21:00)
[2025-01-13 03:38] VITALS: TEMP 97.7
[2025-01-13 06:49] LABS: BUN Creatinine Ratio 23.5 (10-20); Calcium 8.8 mg/dl (8.6-10.3); Creatinine Clr Calc Pharmacy 42.4 ml/min; Potassium 4.5 mmol/L (3.5-5.1)
[2025-01-13 08:22] VITALS: RESP 20
[2025-01-13 11:32] VITALS: BP 153/69
--- NOTE | 2025-01-13 15:40 | Discharge Summary ---
Discharge Summary Date of Service January 13, 2025 Principal Dx & Hospital Course #1 = Principal Diagnosis (1) Congestive heart failure: (2) Asthma-COPD overlap syndrome: Plan 79yo female with chronic hypoxic resp failure, chronic HFpEF, Moderate Aortic Stenosis, Paroxysmal afib, DM 2, hx of Av block s/p cardiac pacemaker. Presented to the ED due to ongoing weakness of 3 weeks of duration. Had evidence of acute/chronic CHF at time of admission. #Acute on chronic HFpEF exacerbation - -acute decompensation resolved -quickly resolved with diuresis and her creatinine bumped very early in the diur esis process -per records she is quite diuretic sensitive -will hold further diuresis due to rise in Cr to 1.3 -repeat echo with preserved EF and her is stable (moderate in severity) #Chest pain episode at home - -resolved with her 's SL nitro x 1 -previous CT chest with coronary calcifications -EKG with RBBB (chronic) but no ischemic change -previous echo without LV WMAs; repeat echo this admit unchanged -no history of heart cath, but would need such prior to TAVR for her - but she is not close to needing the TAVR given the stability of the valve -discussed the chest pain with Dr Mariano, her primary bulk clerk -for now will observe and not pursue ischemic w/u (e.g. stress test, etc) -if she has recurrent episodes then at that point will do work-up -will have her see Dr Mariano shortly after discharge #COPD/Asthma | Chronic respiratory failure with hypoxia and hypercapnia - -no signs of exacerbation at this time -stable on home O2 amount -defer on additional steroids/abx -cont home inhalers, etc. # Paroxysmal Afib - -pacemaker interrogation with minimal to no PAF -continue Xarelto #Moderate Aortic stenosis - -stable moderate on echo this admission (valve area 0.9) -doubt it is contributing to any presenting symptoms at this time #DM2 - -Hgb A1C - 5.8% (09/2024) -multiple lows while here -stop lantus -loosen novolog SSI; get rid of carb coverage -at discharge consider stopping all insulins and just using low-dose metformin #anemia - -chronic, baseline about 9 -hemoglobin here stable recent Fe studies, B12, folate wnl (ferritin wnl, transferrin sat 18%) -etiology?? -will send message to Dr Wheat her primary internet sales representative -she was to have seen Dr Wheat this week but missed the appointment due to this hospitalization -will need to reschedule such PT/OT evals pending due to weakness ensure safe for d/c home care d/w Dr Mariano care d/w her at bedside today Admission HPI Per Admitting Provider 79 y/o female with PMH of COPD, Valvular heart disease, Moderate Aortic Stenosis, Paroxysmal afib, DM 2, hx of Av block, s/p cardiac pacemaker that presented to the ED due to ongoing weakness of 3 weeks of duration. Patient does have a chronic respiratory failure with hypoxia with requirement of 2 L NC. States she had been feeling more tired in the past 3 weeks. Had been sleeping on a recliner. she used a wheelchair for transport but states she can ambulate short distances. Recently she is not able to do that due to worsening. States having increased of lower extremities edema. Denied any chills or fevers. Denied any frequency or urgency. no sick contacts. Denied any abdominal pain, nausea or vomiting. Denied any chest pain. Discharge Exam gen - NAD, sitting in chair, looks ok today neck - no JVD heart - RRR, s1 s2, 2-3/6 holosystolic murmur heard loudest at the RUSB; s2 can be heard lungs - CTA b/l; no wheeze; no increased work of breathing; no rales abd - soft NT ND BS+ ext - no edema, pulses 2+ b/l psych - a/o x 3 Discharge Plan Discharge Items Patient Disposition: Home - Home Health Services Reason For Visit: weakness, shortness of breath Discharge Diagnosis: 1. shortness of breath - due to congestive heart failure (fluid build-up in lungs) - resolved 2. COPD on home oxygen 3. diabetes 4. recent chest pain - no evidence of heart attack; cardiology follow-up needed with Dr Mariano 5. pacemaker - interrogation completed and pacemaker working well 6. weakness - due to combination of anemia, heart & lung disease, and potentially other casues Activity: Resume your previous activity Activity Comment: as tolerated Non-emergency contact: Primary Care Provider and Key Punch Operator Call non-emergency contact if: you have any medication questions, your symptoms worsen and you have a fever Follow-up/Referrals: Feliz Mariano MD [Physician] - 01/30/25 1:30 pm (1-2 weeks) Felicia Costa MD [Primary Care Provider] - 01/23/25 1:00 pm (1 week) Sammie Wheat MD [Physician] - (please contact Dr Wheat next week to determine when she wants to reschedule your appointment) Diet: Carb Consistent or DM2 and Heart Healthy Addtl Attending Provider Instructions: Mrs Resendiz, You were hospitalized due to weakness and shortness of breath. When you arrived to [facility] it appeared you had fluid in the lungs from congestive heart failure. You received a few doses of IV lasix (furosemide) with resolution of the fluid build-up. Your breathing returned to your typical baseline. We performed echocardiogram and this showed that the aortic valve stenosis is stable. It is of moderate degree and you do not need surgery in the near-future for this. Dr Mariano will continue to follow the valve. Your pacemaker was checked and is operating normally. You haven't had any recent abnormal heart rhythms. We did not find any infections while here. You mentioned that you had had an episode of chest pain that resolved with use of a nitroglycerin tablet. I discussed this with Dr Mariano and we are going to follow this closely. If you have more episodes of chest pain Dr Mariano will likely pursue additional heart testing. You did NOT have any evidence of heart attack while here. Dr Mariano recommended that if you have chest pains you should seek medical attention right away rather than taking the nitroglycerin. Finally, despite holding your metformin, lantus, and novolog, your blood sugars were very stable while hospitalized. In fact you were so tightly controlled that you had a few low blood sugars while here. Recommendations - 1. check your weight every morning on the same scale after using the toilet. Keep a log of your weights. If you gain more than 3 pounds of weight over a 1-2 day period just assume this is fluid weight. If this happens start taking your furosemide every day until your weight is back to your "normal weight" or "dry weight." 2. you can also use the furosemide as needed for any swelling in your feet/ankles/legs. 3. if your weights are stable and you are not seeing any swelling you don't have to take the furosemide water pill. 4. ok to resume your metformin 1000mg daily upon return home. 5. please hold your Lantus & your novolog insulins for now. If your blood sugars are 150 or less fairly consistently I would continue to hold both insulins. If you are running greater than 150 consistently on your continuous glucose monitoring device I would start back your lantus but perhaps at a lower dose of 6 units at bedtime. If you have any questions please contact Melissa Segura at the diabetes clinic. I have sent her a message regarding your sugars during the hospitalization and the plan to hold your insulins for now. 6. continue your oxygen as previous. Follow-up - see separate section Return to [facility] if - * you have recurrent episodes of chest pain * you have worsening shortness of breath * you have to turn up the oxygen on your oxygen tank to 4 liters or more * your oxygen levels on your finger measured with a pulse oximeter device are consistently less than 88% * any other concerns It was our pleasure to care for you! -Dr Lira Pending Studies at Discharge: No Stand-Alone Forms: [facility] [employer], Smoking Cessation Medications and DC Order Prescriptions: New furosemide 20 mg tablet 20 mg PO QAM PRN (Reason: edema) Qty: 30 0RF Rx Instructions: take as needed for leg/foot swelling and also take if any weight gain of more than 3 pounds over 1-2 days Continued Xarelto 10 mg tablet 10 mg PO QPM Qty: 90 1RF Rx Instructions: Per [facility] with evening meal ferrous sulfate 325 mg (65 mg iron) tablet 325 mg PO 3XWK Rx Instructions: M/W/F with food (DME) lancets 33 gauge misc See Rx Instructions .Route Qty: 200 3RF Rx Instructions: OneTouch Delica - Test blood sugars twice a day nystatin-triamcinolone 100,000-0.1 unit/gram-% ointment 1 applic topical TID PRN (Reason: Unknown) Qty: 180 3RF Rx Instructions: apply sparingly to affected areas (DME) OneTouch Verio test strips Strip See Rx Instructions .ROUTE .MEDSUPPLY Qty: 300 3RF Rx Instructions: test blood sugar TID dupilumab 300 mg/2 mL pen injector 300 mg subcut .COMPLEX Qty: 4 11RF Rx Instructions: Inject 600mg SQ on Day 1, then inject 300mg SQ every 2 weeks; APPROVED GOOD 09/01/24-05/01/25 [id number] ([facility]) pen needle, diabetic [UltiCare Pen Needle] 31 gauge x 3/16" needle See Rx Instructions .Route Qty: 200 11RF Rx Instructions: Use 4 per day docusate sodium [Stool Softener] 100 mg tablet 100 mg PO BID multivitamin Tablet 1 tab PO QAM cyanocobalamin (vitamin B-12) 1,000 mcg capsule 1,000 mcg PO 3XWK Rx Instructions: Thursday, Thursday Adult 50 Plus Probiotic 4 billion cell capsule 4,000 mmu cells PO QPM Rx Instructions: administer with a meal Neilmed Sinus Rinse Complete Packet With Rinse Device See Rx Instructions .Route .COMPLEX Qty: 50 3RF Rx Instructions: use daily; fluticasone propionate [Flonase Allergy Relief] 50 mcg/actuation spray,suspension 1 spray intranasal BID Qty: 18.2 2RF Rx Instructions: administer into each nostril Breztri Aerosphere 160-9-4.8 mcg/actuation HFA aerosol inhaler 2 inh inhalation BID Qty: 10.7 3RF albuterol sulfate [Ventolin HFA] 90 mcg/actuation HFA aerosol inhaler 2 puff INHALATION Q4H PRN (Reason: Shortness Of Breath Or Wheezing) Qty: 8.5 3RF Ohtuvayre 3 mg/2.5 mL suspension for nebulization 3 mg inhalation BID Qty: 150 11RF ipratropium-albuterol 0.5 mg-3 mg(2.5 mg base)/3 mL solution for nebulization 3 ml inhalation QID PRN (Reason: shortness of breath or wheezing) Qty: 360 3RF PreserVision AREDS-2 250-90-40-1 mg Capsule 1 tab PO BID magnesium oxide 400 mg (241.3 mg magnesium) Tablet 400 mg PO BID Qty: 60 0RF Rx Instructions: OTC simvastatin 40 mg tablet 40 mg PO HS Rx Instructions: TAKE 1 TABLET AT BEDTIME pantoprazole 40 mg tablet,delayed release (DR/EC) 40 mg PO QAM Rx Instructions: TAKE 1 TABLET DAILY ropinirole 0.5 mg tablet 1.5 mg PO HS Rx Instructions: TAKE 3 TABLETS (1.5 MG) AT BEDTIME lorazepam 0.5 mg Tablet 0.25 mg PO TID PRN (Reason: anxiety or shortness of breath) Qty: 15 0RF amoxicillin 500 mg tablet 500 mg PO BID metformin 1,000 mg tablet 1,000 mg PO QAM Rx Instructions: TAKE 1 TABLET BY MOUTH EVERY MORNING Held insulin aspart U-100 [Novolog FlexPen U-100 Insulin] 100 unit/mL (3 mL) insulin pen See Rx Instructions subcut .COMPLEX MDD 20 units Qty: 30 3RF Hold Instructions: hold for now Rx Instructions: subcutaneously, three times a day with meals, and sliding scale for high blood sugar Lantus Solostar U-100 Insulin 100 unit/mL (3 mL) insulin pen 8 unit SUBCUT HS Hold Instructions: hold for now Discharge Orders: Discharge Order (Routine); Ordered 01/13/25 Ordered By: Ecsobar Lira Admission Data Admit Date/Time: 01/10/25 20:45 Attending Provider: Escobar Lira Admit Provider: Escobar Cutler Primary Care Provider: Felicia Costa Other Providers: Escobar Cutler; [facility] Stay Data Consultations 01/10/25 19:23 ED Decision to Admit Stat Pending Results Patient Have Any Pending Studies at Discharge: No Discharge Instructions Given to Patient (Per Discharging Provider) Mrs Resendiz, Tristan were hospitalized due to weakness and shortness of breath. When you arrived to [facility] it appeared you had fluid in the lungs from congestive heart failure. You received a few doses of IV lasix (furosemide) with resolution of the fluid build-up. Your breathing returned to your typical baseline. We performed echocardiogram and this showed that the aortic valve stenosis is stable. It is of moderate degree and you do not need surgery in the near-future for this. Dr Mariano will continue to follow the valve. Your pacemaker was checked and is operating normally. You haven't had any recent abnormal heart rhythms. We did not find any infections while here. You mentioned that you had had an episode of chest pain that resolved with use of a nitroglycerin tablet. I discussed this with Dr Mariano and we are going to follow this closely. If you have more episodes of chest pain Dr Mariano will likely pursue additional heart testing. You did NOT have any evidence of heart attack while here. Dr Mariano recommended that if you have chest pains you should seek medical attention right away rather than taking the nitroglycerin. Finally, despite holding your metformin, lantus, and novolog, your blood sugars were very stable while hospitalized. In fact you were so tightly controlled that you had a few low blood sugars while here. Recommendations - 1. check your weight every morning on the same scale after using the toilet. Keep a log of your weights. If you gain more than 3 pounds of weight over a 1-2 day period just assume this is fluid weight. If this happens start taking your furosemide every day until your weight is back to your "normal weight" or "dry weight." 2. you can also use the furosemide as needed for any swelling in your feet/ankles/legs. 3. if your weights are stable and you are not seeing any swelling you don't have to take the furosemide water pill. 4. ok to resume your metformin 1000mg daily upon return home. 5. please hold your Lantus & your novolog insulins for now. If your blood sugars are 150 or less fairly consistently I would continue to hold both insulins. If you are running greater than 150 consistently on your continuous glucose monitoring device I would start back your lantus but perhaps at a lower dose of 6 units at bedtime. If you have any questions please contact Melissa Segura at the diabetes clinic. I have sent her a message regarding your sugars during the hospitalization and the plan to hold your insulins for now. 6. continue your oxygen as previous. Follow-up - see separate section Return to [facility] if - * you have recurrent episodes of chest pain * you have worsening shortness of breath * you have to turn up the oxygen on your oxygen tank to 4 liters or more * your oxygen levels on your finger measured with a pulse oximeter device are consistently less than 88% * any other concerns It was our pleasure to care for you! -Dr Lira Coding Diagnoses Congestive heart failure I50.9 Heart failure chronicity: unspecified Heart failure type: unspecified Asthma-COPD overlap syndrome J44.89
[2025-01-13 15:43] VITALS: PULSE 65; O2SAT 99
== END 2025-01-13 16:30 | disposition home health service (06) | DRG 291 ==
LOC: ED 18:02 → EDINP 20:45 → SUATTDRO 20:45 → 2W 23:10
DX: J45.909 Unspecified asthma, uncomplicated; Z11.52 Encounter for screening for COVID-19; I48.0 Paroxysmal atrial fibrillation; Z79.899 Other long term (current) drug therapy; Z95.0 Presence of cardiac pacemaker; Z79.84 Long term (current) use of oral hypoglycemic drugs; D64.9 Anemia, unspecified; I50.33 Acute on chronic diastolic (congestive) heart failure; I35.0 Nonrheumatic aortic (valve) stenosis; Z82.49 Family history of ischemic heart disease and other diseases of the circulatory system; Z79.4 Long term (current) use of insulin; I11.0 Hypertensive heart disease with heart failure; E11.43 Type 2 diabetes mellitus with diabetic autonomic (poly)neuropathy; G25.81 Restless legs syndrome; Z79.01 Long term (current) use of 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; J44.9 Chronic obstructive pulmonary disease, unspecified; J96.11 Chronic respiratory failure with hypoxia; R07.89 Other chest pain; J96.12 Chronic respiratory failure with hypercapnia; G47.33 Obstructive sleep apnea (adult) (pediatric); Z99.81 Dependence on supplemental oxygen

== ENCOUNTER 2025-04-02 12:54 | Inpatient (IN) ==
[2025-04-02 13:28] LABS: Hematocrit (blood only) 24.8 % (37.0-47.0); Hemoglobin 7.0 g/dl (12.0-16.0); Immature Granulocytes # (auto) 0.03 K/uL (0.01-0.20); Immature Granulocytes % (auto) 0.5 %; Mean Corpuscular Hemoglobin 26.4 pg (25.0-34.0); Mean Corpuscular Volume 93.6 fL (80.0-100.0); Platelet Count 231 K/uL (130-400); RDW Standard Deviation 48.9 fL (36.4-46.3); Red Blood Count 2.65 M/uL (4.20-5.40); White Blood Count 5.76 K/ul (4.8-10.8)
[2025-04-02] MEDS: PLASMA-LYTE A 1,000 ML IV ONE (13:44)
[2025-04-02 13:46] LABS: Ovalocytes 1+; Polychromasia 1+
[2025-04-02] MEDS: ALUMINUM/MAGNESIUM SUSP 30 ML UDC PO STA (14:04)
[2025-04-02] MEDS: ONDANSETRON INJ 2 MG/ML 2 ML VIAL IV STA (14:04)
[2025-04-02 14:36] LABS: Alanine Aminotransferase 6.0 U/L (7-52); Albumin Globulin Ratio 1.7 (0.9-2); Alkaline Phosphatase 43.0 U/L (34-104); Anion Gap 3.0 (3-11); Bilirubin,Total 0.2 mg/dl (0.2-1.0); Blood Urea Nitrogen 22.0 mg/dl (6-23); Calcium 8.5 mg/dl (8.6-10.3); Carbon Dioxide 37.0 mmol/L (21-32); Chloride 107.0 mmol/L (98-107); Creatinine Clr Calc Pharmacy 51.0 ml/min; Globulin 2.0 gm/dl (2.5-4.0); Glucose 125.0 mg/dl (70-99(Fasting)); Potassium 4.7 mmol/L (3.5-5.1); Sodium 147.0 mmol/L (136-145); Total Protein 5.4 gm/dl (6.0-8.3)
--- NOTE | 2025-04-02 14:37 | Emergency Department Note ---
Impression & Plan UGIB (upper gastrointestinal bleed), Epigastric abdominal pain, Acute right flank pain, Symptomatic anemia, Acute hypernatremia ED Provider Note NAME: HANNAH SUTTON AGE: 79 SEX: F : 1945 ARRIVES VIA: Walk-In INFORMANT: Patient, ED PROVIDER(S): Saul Rod DO CHIEF COMPLAINT: right flank pain HPI: This is a 79-year-old female with the PMHx of Severe aortic stenosis, paroxysmal atrial fibrillation on low-dose Xarelto, second-degree AV block s/p PPM, COPD on chronic low-flow nasal cannula secondary to chronic hypoxemic respiratory failure, REJI, hypertension, dyslipidemia and pernicious anemia presenting to [facility] for further evaluation of back and flank pain for the last week. Patient is accompanied by has been who provide additional history. They report ongoing sharp and stabbing back pain. She denies this mostly is right- sided flank pain. Patient states this has been intermittent. She states this felt like prior kidney stones. She has also had epigastric pain. She denies any nausea or vomiting. Patient denies any hematemesis or hemoptysis. Has had ongoing issues with lightheadedness, syncope and dyspnea on exertion. The symptoms have not changed. Patient does take anticoagulation with Xarelto. She has no urinary symptoms. Patient has tried home medications without improvement. They deny fever or chills. No cough or congestion. Denies chest pain or palpitations. No shortness of breath. They deny abdominal pain, nausea and vomiting. No urinary complaints. No recent changes in bowel movements. Patient denies recent changes in medications or OTC supplements. Patient offers no other complaints, today. ADDITIONAL HISTORY OBTAINED: Per HPI Chronic Medical/Social Conditions Affecting Care: Per HPI PAST MEDICAL HISTORY: See Below PAST SURGICAL HISTORY: See Below FAMILY HISTORY: See Below SOCIAL HISTORY: See Below HOME MEDICATIONS: See Below ALLERGIES: See Below VITALS: See Below PHYSICAL EXAMINATION: GENERAL: Sitting up in bed, alert, well appearing, well nourished, no distress, non-toxic EYE EXAM: normal conjunctiva. OROPHARYNX: no exudate, no erythema, lips, buccal mucosa, and tongue normal and mucous membranes are moist, LFNC in place NECK: supple, no nuchal rigidity, no adenopathy, non-tender LUNGS: Clear to auscultation. Normal chest wall mechanics HEART: no murmurs, regular rate, irregular rhythm ABDOMEN: abdomen soft, significant tenderness to palpation in the epigastrium without significant rigidity or rebound BACK: Back is symmetrical on inspection and there is no deformity, no midline tenderness, R CVA tenderness present. SKIN: no rashes and no bruising UPPER EXTREMITIES: upper extremities are grossly normal. LOWER EXTREMITIES: lower extremity edema present. NEURO EXAM: Normal sensorium, GCS 15, normal speech MEDICAL DECISION MAKING: Differential diagnoses includes but not limited to nephrolithiasis, pyelonephritis, infected kidney stone, complicated UTI, gastritis, esophageal reflux, upper GI bleed, lower GI bleed, pneumonia, CHF, ACS, dysrhythmia, musculoskeletal strain, muscle spasm, hepatobiliary dysfunction, pancreatitis In summary, this is a 79 year old female who presented with back/flank pain. Differential as above. Nursing notes and pertinent past medical records reviewed. Vital signs reviewed and the patient is afebrile and hemodynamically stable. No acute respiratory distress present. History and presentation revealed Significant comorbidities. Prior kidney stone send pain is similar today. Physical examination revealed Significant epigastric tenderness to palpation as well as right CVA tenderness. As a result of my initial evaluation, we will plan for labs and CT imaging for further evaluation. Do feel her symptoms could be related to a kidney stone. She does not appear septic. She has no urinary complaints. Will obtain further workup. Diagnostics interpreted by me include EKG and cardiac monitoring as listed below: -Cardiac Monitoring: An order was placed for continuous cardiac monitoring. The monitor shows a rate of 70-90s with irregular rhythm. -ECG: EKG independently interpreted by me reveals normal sinus rhythm at a ventricular rate of 90 bpm. Frequent PVCs present on this rhythm strip. There is a bifascicular block. First-degree AV block noted. Intervals otherwise within normal limits. There are not significant ST segment changes to suggest STEMI. EKG is very similar to prior collected in 2023 that I have independently reviewed. Patient completed laboratory studies and imaging. Results independently interpreted by me are worsening anemia. Hemoglobin is 7.0 today this is down trended from 8.7 approximately 2 months ago. No significant leukocytosis. Patient has mild hypernatremia but otherwise no electrolyte derangements. No kidney dysfunction. Pending urinalysis and CT scan. The patient was managed with gentle IV fluid resuscitation as she. Dehydrated on physical examination and laboratory analysis. Patient was also given antiemetics and Maalox. Given low-dose IV fentanyl for further pain control. On reevaluation, the patient was having minimal improvement. Still has epigastric tenderness on reexamination. Will give her Protonix. Discussed further given acute anemia regarding bleeding. Patient has not had hematemesis, melena or hematochezia. No blood in the urine. No hemoptysis. Patient CT independently interpreted by me reveals no acute hepatobiliary dysfunction, obstructing stone or evidence of pancreatitis. Given ongoing epigastric tenderness and history of upper GI bleed, I am concerned for possible gastritis versus duodenal ulcer. I feel this would fit with her picture of pain as well as acute on chronic anemia. Unclear if she is just slowly been downtrending as well. Patient is not medically cleared for procedures like endoscopy at this time. Will continue Protonix as an inpatient. Given extensive cardiovascular history, the patient will benefit from a blood transfusion. 1 unit to be transferred over 4 hours given the risk of volume overload. Will give her a dose of Lasix. Patient was consented for blood transfusion. Patient agreeable to this. I spoke with the [facility] hospitalist team regarding admission for high risk upper GI bleed. She also has symptomatic anemia and electrolyte derangements. Patient agreeable to admission. [facility] group discussed the patient with me by telephone and they accepted for admission. Patient admitted to the ED with Dr. Luz Elena Nguyen. Consults/Care Managements Discussions: Per [facility] ER treatment provided: See above Procedures:none Critical Care: None The chart was completed utilizing [employer] Speech voice recognition software. Grammatical errors, random word insertions, pronoun errors, and incomplete sentences are an occasional consequence of this system due to software limitations, ambient noise, and hardware issues. Any formal questions or concerns about the content, text, or information contained within the body of this dictation should be directly addressed to the physician for clarification. 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 (Chronic) Paroxysmal atrial fibrillation Osteoporosis Diabetic peripheral 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) Restless leg syndrome (Chronic) Vitamin D deficiency Obstructive sleep apnea (Chronic) Refuses device per records Multiple pulmonary nodules (Chronic) HTN (hypertension) (Chronic) Esophageal reflux (Chronic) Dyslipidemia (Chronic) Medical History Nephrolithiasis Congestive heart failure Asthma-COPD overlap syndrome Acute kidney injury Severe aortic stenosis Chronic respiratory failure with hypoxia Type 2 diabetes mellitus, with long-term current use of insulin SNHL (sensorineural hearing loss) BPPV (benign paroxysmal positional vertigo) On home O2 2 LPM continuous Osteoarthritis History of DVT (deep vein thrombosis) RLE post op (approximtely 2 years ago) Taking Xarelto Insomnia Peptic ulcer disease Hx of fracture of femur Surgical History History of lithotripsy History of eye removal Right History of appendectomy History of esophagogastroduodenoscopy (EGD) EGD (11/13/20): MAC at [facility]. 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 Hx of eye surgery left H/O total hip arthroplasty left Hx of total knee arthroplasty R/L History of tonsillectomy and adenoidectomy Hx of cholecystectomy H/O: hysterectomy Family History Father Cardiovascular disease Diabetes Asthma Heart disease Brother Diabetes Cardiac disorder Mother Breast cancer Other Hypertension No family history of adverse response to anesthesia No family history of bleeding disorder Denies family history of Ovarian cancer Prostate cancer Myocardial infarction Colorectal cancer Social History Smoking Status: Never smoker Second Hand Exposure: Yes; Do You Dip or Chew Tobacco: No; Hx Alcohol Use: No Hx Substance Use: No Preferred Language: Turkmen Communication Ability: Effective Wireless Sales Manager Required: No Beliefs That Will Affect Care: None marital status: Current Living Situation: Spouse current occupational status: retired Feels Safe at Home: Yes Diet: regular Dental Care, Regularly: No Physical Activity Frequency: Does not Exercise Seatbelt Use: always Sunscreen Use: No Assistive Devices: Walker Allergies Allergies Allergy/AdvReac Type Severity Reaction Status Date / Time No Known Allergies Allergy Verified 04/02/25 16:21 Home Meds Home Medications Medication Instructions Recorded Confirmed multivitamin 1 tab PO QAM 04/18/21 04/02/25 vit C 250 mg-vit E 90 mg-zinc 40 1 tab PO BID 07/21/22 04/02/25 mg-copper 1 [id number] capsule (PreserVision AREDS-2) insulin glargine 100 unit/mL (3 8 unit subcut HS 06/24/23 04/02/25 mL) subcutaneous pen (Lantus Solostar U-100 Insulin) lactobacillus combination no.9 4 4,000 mmu cells PO QPM 06/24/23 04/02/25 billion cell capsule (Adult 50 Plus Probiotic) docusate sodium 100 mg tablet 100 mg PO BID 08/21/23 04/02/25 (Stool Softener) ferrous sulfate 325 mg (65 mg 325 mg PO 3XWK 02/08/24 04/02/25 iron) tablet cyanocobalamin (vitamin B-12) 1,000 mcg PO 3XWK 10/06/24 04/02/25 1,000 mcg capsule dupilumab 300 mg/2 mL subcutaneous 300 mg subcut .Q2WKS 04/02/25 04/02/25 pen injector nystatin-triamcinolone 100,000 1 applic topical TID PRN SKIN 04/02/25 04/02/25 unit/gram-0.1 % topical ointment IRRITATIONS sodium chloride, sodium 1 ea DAILY 04/02/25 04/02/25 bicarb-nasal rinse squeeze bottle with packet (Neilmed Sinus Rinse Complete with packet) Previous Rx's Medication Instructions Recorded magnesium oxide 400 mg (241.3 mg 400 mg PO BID #60 tabs 07/24/22 magnesium) tablet lancets 33 gauge #200 ea 03/06/23 insulin aspart U-100 100 unit/mL See Rx Instructions subcut 03/04/24 (3 mL) subcutaneous pen (Novolog .COMPLEX #30 mL FlexPen U-100 Insulin aspart) blood sugar diagnostic (OneTouch #300 ea 05/09/24 Verio test strips) fluticasone propionate 50 1 spray intranasal BID #18.2 mL 05/24/24 mcg/actuation nasal spray,suspension (Flonase Allergy Relief) ensifentrine 3 mg/2.5 mL 3 mg (2.5 mL) inhalation BID #150 07/18/24 suspension for nebulization mL (Ohtuvayre) rivaroxaban 10 mg tablet (Xarelto) 10 mg PO QPM #90 tabs 08/29/24 pen needle, diabetic 31 gauge x #200 ea 11/21/24/" (UltiCare Pen Needle) furosemide 20 mg tablet 20 mg PO QAM PRN edema #30 tabs 01/13/25 ropinirole 0.5 mg tablet 1.5 mg (3 x 0.5 mg) PO HS 90 days 01/23/25 #270 tabs metformin 1,000 mg tablet 1,000 mg PO QAM #90 tabs 02/03/25 simvastatin 40 mg tablet 40 mg PO HS #90 tabs 02/06/25 budesonide 160 mcg-glycopyr 9 2 inh inhalation BID #3 Inhalers 02/15/25 mcg-formot 4.8 mcg/actuation HFA inhaler (Breztri Aerosphere) albuterol sulfate 90 mcg/actuation 2 puff inhalation Q4H PRN 02/23/25 aerosol inhaler (Ventolin HFA) Shortness Of Breath Or Wheezing #8.5 grams ipratropium 0.5 mg-albuterol 3 mg 3 ml inhalation QID PRN shortness 02/23/25 (2.5 mg base)/3 mL nebulization of breath or wheezing #360 mL soln amoxicillin 500 mg tablet 500 mg PO BID 30 days #60 tabs 03/08/25 citalopram 20 mg tablet 20 mg PO DAILY 90 days #90 tabs 03/17/25 lorazepam 0.5 mg tablet 0.25 mg (1/2 x 0.5 mg) PO TID PRN 03/17/25 anxiety or shortness of breath #15 tabs pantoprazole 40 mg tablet,delayed 40 mg PO QAM #90 tabs 03/17/25 release Results & Data (ED) Vital Signs Vital Signs - 24 hr 04/02/25 12:59 04/02/25 13:53 04/02/25 14:05 Temperature 36.9 C Temperature Source Temporal Artery Scan Pulse Rate 88 84 Pulse Rate [Left Finger] 72 Pulse Rhythm [Left Finger] Regular Pulse Strength [Left Finger] Normal Respiratory Rate 22 20 Respiratory Effort / Characteristics Non-Labored Spontaneous Respiratory Depth Normal Respiratory Pattern Regular Blood Pressure 135/55 L Blood Pressure [Right Arm] 135/77 Blood Pressure Mean 81 Blood Pressure Mean [Right Arm] 96 Blood Pressure Position [Right Arm] Sitting Pulse Oximetry 91 98 Oxygen Delivery Method Nasal Cannula Oxygen Flow Rate 3 Sepsis Recent Fever Within 48 Hours No Sepsis New/Unexplained Change in Mental Status No Sepsis Action Taken by Nursing No Action Required 04/02/25 16:14 Temperature Temperature Source Pulse Rate Pulse Rate [Left Finger] Pulse Rhythm [Left Finger] Pulse Strength [Left Finger] Respiratory Rate Respiratory Effort / Characteristics Respiratory Depth Respiratory Pattern Blood Pressure Blood Pressure [Right Arm] Blood Pressure Mean Blood Pressure Mean [Right Arm] Blood Pressure Position [Right Arm] Pulse Oximetry Oxygen Delivery Method Nasal Cannula Oxygen Flow Rate 4 Sepsis Recent Fever Within 48 Hours Sepsis New/Unexplained Change in Mental Status Sepsis Action Taken by Nursing Laboratory Data 04/02/25 13:08 04/02/25 14:02 Lab Results 04/02/25 04/02/25 04/02/25 Range/Units 13:08 14:02 15:55 WBC 5.76 (4.8-10.8) K/ul RBC 2.65 L (4.20-5.40) M/uL Hgb 7.0 L (12.0-16.0) g/dl Hct 24.8 L (37.0-47.0) % MCV 93.6 (80.0-100.0) fL MCH 26.4 (25.0-34.0) pg MCHC 28.2 L (32.0-36.0) g/dL RDW Std Deviation 48.9 H (36.4-46.3) fL RDW Coeff of Yevgeniy 14.6 H (11.5-14.5) % Plt Count 231 (130-400) K/uL MPV 12.3 (9.4-12.4) fL Immature Gran % (Auto) 0.5 % Neut % (Auto) 69.9 % Lymph % (Auto) 18.9 % Bowie % (Auto) 5.0 % Eos % (Auto) 5.0 % Baso % (Auto) 0.7 % Neut # (Auto) 4.02 (1.40-6.50) K/uL Lymph # (Auto) 1.09 L (1.20-3.40) K/uL Bowie # (Auto) 0.29 (0.11-0.59) K/uL Eos # (Auto) 0.29 (0.00-0.50) K/uL Baso # (Auto) 0.04 (0.00-0.20) K/uL Immature Gran # (Auto) 0.03 (0.01-0.20) K/uL Polychromasia 1+ Ovalocytes 1+ Sodium Cancelled 147 H Potassium Cancelled 4.7 Chloride Cancelled 107 Carbon Dioxide Cancelled 37 H Anion Gap Cancelled 3 BUN Cancelled 22 Creatinine Cancelled 1.07 Est Cr Clr Drug Dosing Cancelled 51.0 eGFR Cancelled 52.18 BUN/Creatinine Ratio Cancelled 20.6 H Glucose Cancelled 125 H Calcium Cancelled 8.5 L Total Bilirubin Cancelled 0.2 AST Cancelled 10 L ALT Cancelled 6 L Alkaline Phosphatase Cancelled 43 Total Protein Cancelled 5.4 L Albumin Cancelled 3.4 Globulin Cancelled 2.0 L Albumin/Globulin Ratio Cancelled 1.7 Urine Color Yellow Urine Appearance Clear (Clear) Urine pH 5.5 (4.5-7.5) Ur Specific [place] 1.021 (1.000-1.030) Urine Protein 1+ H (Negative) Urine Glucose (UA) Negative (Negative) Urine Ketones Trace H (Negative) Urine Blood Negative (Negative) Urine Nitrite Negative (Negative) Urine Bilirubin Negative (Negative) Urine Urobilinogen Negative (Negative) Ur Leukocyte Esterase Negative (Negative) Urine WBC (Auto) 0-5 (0-5) /hpf Urine RBC (Auto) 0-2 (0-2) /hpf U Hyaline Cast (Auto) 3-5 H (0-2) /lpf U Epithel Cells (Auto) 3-5 H (0-2) /hpf Urine Bacteria (Auto) None Seen (None Seen) Urine Comment Administered Medications Discontinued Medications Al Hydrox/Mg Hydrox/Simethicone (Aluminum/Magnesium Susp 30 Ml Udc) 30 ml PO NOW STA Stop: 04/02/25 13:32 Last Admin: 04/02/25 14:04 Dose: 30 ml Documented By: MICHELLE Fentanyl Citrate (Fentanyl Citrate Pf 100 Mcg/2 Ml Vial) 50 mcg IV NOW ONE Stop: 04/02/25 13:32 Last Admin: 04/02/25 14:03 Dose: 50 mcg Documented By: MICHELLE Parenteral Electrolytes (Plasma-Lyte A Ph 7.4) 1,000 mls @ 999 mls/hr IV .Q1H1M ONE Stop: 04/02/25 14:31 Last Infusion: 04/02/25 14:41 Dose: Infused Documented By: Admin: 04/02/25 13:44 Dose: 999 mls/hr Documented By: MICHELLE Pantoprazole Sodium (Protonix) 40 mg in 10 mls @ 5 mls/min IV NOW STA Stop: 04/02/25 16:09 Last Admin: 04/02/25 16:23 Dose: 5 mls/min Documented By: ANA Ioversol (Optiray 320 100ml) 94 ml IV ONCE ONE Stop: 04/02/25 15:05 Last Admin: 04/02/25 15:05 Dose: 94 ml Documented By: ERIN Ondansetron HCl (Ondansetron Inj 2 Mg/Ml 2 Ml Vial) 4 mg IV NOW STA Stop: 04/02/25 13:32 Last Admin: 04/02/25 14:04 Dose: 4 mg Documented By: MICHELLE Imaging Data Radiologist's Impression: Abdomen/Pelvis CT 04/02/25 13:31 EXAMINATION: CT of the abdomen and pelvis performed after the administration of IV contrast TECHNIQUE: Helical CT images from the lung bases through the symphysis pubis were obtained with contrast. Coronal and sagittal reformatted images were generated at a workstation for further assessment. Dose reduction techniques were achieved by using automatic exposure control and/or adjustment of mA and/or kV according to patient size and/or use of iterative reconstruction technique. COMPARISON: 12/26/2024 HISTORY: Abdominal pain FINDINGS: Lung bases: Small bilateral pleural effusions are new. Few atelectatic bands are noted in the right lung base. A calcified granuloma is noted in the left lung base. Cardiomegaly noted. Pacemaker leads are noted in situ. Liver, biliary system: Liver appears normal in size with smooth margins and normal attenuation values. The intra and extrahepatic bile ducts appear unremarkable. Common bile duct appears unremarkable. No mass or abnormal post contrast enhancement seen. The portal vein is patent. Gallbladder fossa: Post cholecystectomy status. No gross pathology or fluid seen. Spleen: The spleen appears normal in size with homogeneous parenchyma. Pancreas: The pancreas appears normal in size with normal contours and homogenous parenchyma. The pancreatic duct appears unremarkable. Adrenals: Both adrenal glands appear unremarkable. Kidneys, ureter, bladder: A nonobstructing curvilinear 7 mm stone is again seen at the inferior right kidney. Very tiny, few punctate additional stones is seen in both kidneys. Simple cysts. No hydronephrosis. No obstructing ureteral stone. Distal esophagus and stomach: Visualized distal esophagus and stomach appears unremarkable. Bowel: Small and large intestine appears unremarkable. No dilatation or stenosis in the visualized bowel. Mild fecal loading of large bowel. Vascular: Imaged portions of major blood vessels show atherosclerotic disease. No aneurysmal dilation or dissection noted. Pelvis: No evidence of enlarged lymph nodes, ascites or free air. Multiple phleboliths are noted in the pelvis. Pelvic viscera: Poorly visualized secondary to metallic streak artifacts from the left hip arthroplasty. Musculoskeletal: Images bones and spine show mild to moderate degenerative changes. No aggressive-appearing osseous lesions noted. IMPRESSION: Unremarkable appearance of the pancreas. Nonobstructing renal calculi. No hydronephrosis or ureteral stone. New small pleural effusions. Cardiomegaly. Electronically signed by Hank Doshi 04-02-2025 3:55 PM Discharge Plan Visit Data Chief Complaint: Back Injury/Pain Stated Complaint: SEVERE BACK PAIN, KIDNEY PAIN ON RT SIDE ED Provider: Saul Rod Discharge Problem: UGIB (upper gastrointestinal bleed), Epigastric abdominal pain, Acute right flank pain, Symptomatic anemia, Acute hypernatremia Patient Disposition: Admitted As Inpatient Condition: Fair Forms Stand Alone Forms: My [place] Prescriptions Prescriptions: No Action Xarelto 10 mg tablet 10 mg PO QPM Qty: 90 1RF Rx Instructions: Per [facility] Clinic with evening meal ferrous sulfate 325 mg (65 mg iron) tablet 325 mg PO 3XWK Rx Instructions: M/W/F with food (DME) lancets 33 gauge misc See Rx Instructions .Route Qty: 200 3RF Rx Instructions: OneTouch Delica - Test blood sugars twice a day insulin aspart U-100 [Novolog FlexPen U-100 Insulin] 100 unit/mL (3 mL) insulin pen See Rx Instructions subcut .COMPLEX MDD 20 units Qty: 30 3RF Hold Instructions: hold for now Rx Instructions: subcutaneously, three times a day with meals, and sliding scale for high blood sugar (DME) OneTouch Verio test strips Strip See Rx Instructions .ROUTE .MEDSUPPLY Qty: 300 3RF Rx Instructions: test blood sugar TID (DME) pen needle, diabetic [UltiCare Pen Needle] 31 gauge x 3/16" needle See Rx Instructions .Route Qty: 200 11RF Rx Instructions: Use 4 per day ropinirole 0.5 mg tablet 1.5 mg PO HS 90 Days Qty: 270 3RF Rx Instructions: TAKE 3 TABLETS (1.5 MG) AT BEDTIME metformin 1,000 mg tablet 1,000 mg PO QAM Qty: 90 3RF Rx Instructions: TAKE 1 TABLET BY MOUTH EVERY MORNING simvastatin 40 mg tablet 40 mg PO HS Qty: 90 3RF Rx Instructions: TAKE 1 TABLET AT BEDTIME amoxicillin 500 mg tablet 500 mg PO BID 30 Days Qty: 60 3RF docusate sodium [Stool Softener] 100 mg tablet 100 mg PO BID multivitamin Tablet 1 tab PO QAM cyanocobalamin (vitamin B-12) 1,000 mcg capsule 1,000 mcg PO 3XWK Rx Instructions: Thursday, day Thursday Lantus Solostar U-100 Insulin 100 unit/mL (3 mL) insulin pen 8 unit SUBCUT HS Hold Instructions: hold for now Adult 50 Plus Probiotic 4 billion cell capsule 4,000 mmu cells PO QPM Rx Instructions: administer with a meal Breztri Aerosphere 160-9-4.8 mcg/actuation HFA aerosol inhaler 2 inh inhalation BID Qty: 3 3RF fluticasone propionate [Flonase Allergy Relief] 50 mcg/actuation spray,suspension 1 spray intranasal BID Qty: 18.2 2RF Rx Instructions: administer into each nostril Ohtuvayre 3 mg/2.5 mL suspension for nebulization 3 mg inhalation BID Qty: 150 11RF albuterol sulfate [Ventolin HFA] 90 mcg/actuation HFA aerosol inhaler 2 puff INHALATION Q4H PRN (Reason: Shortness Of Breath Or Wheezing) Qty: 8.5 3RF ipratropium-albuterol 0.5 mg-3 mg(2.5 mg base)/3 mL solution for nebulization 3 ml inhalation QID PRN (Reason: shortness of breath or wheezing) Qty: 360 12RF citalopram 20 mg tablet 20 mg PO DAILY 90 Days Qty: 90 2RF pantoprazole 40 mg tablet,delayed release (DR/EC) 40 mg PO QAM Qty: 90 3RF Rx Instructions: TAKE 1 TABLET DAILY lorazepam 0.5 mg tablet 0.25 mg PO TID PRN (Reason: anxiety or shortness of breath) Qty: 15 0RF PreserVision AREDS-2 250-90-40-1 mg Capsule 1 tab PO BID magnesium oxide 400 mg (241.3 mg magnesium) Tablet 400 mg PO BID Qty: 60 0RF Rx Instructions: OTC nystatin-triamcinolone 100,000-0.1 unit/gram-% ointment 1 applic topical TID PRN (Reason: SKIN IRRITATIONS) Rx Instructions: apply sparingly to affected areas Neilmed Sinus Rinse Complete Packet With Rinse Device 1 ea DAILY Rx Instructions: use daily; dupilumab 300 mg/2 mL pen injector 300 mg subcut .Q2WKS Rx Instructions: EVERY OTHER THURSDAY, DUE 04/03/25. Inject 600mg SQ on Day 1, then inject 300mg SQ every 2 weeks; APPROVED GOOD 09/01/24-05/01/25 [id number] furosemide 20 mg tablet 20 mg PO QAM PRN (Reason: edema) Qty: 30 0RF Rx Instructions: take as needed for leg/foot swelling and also take if any weight gain of more than 3 pounds over 1-2 days Referrals Referrals: Felicia Costa MD [Primary Care Provider] -
[2025-04-02] MEDS: OPTIRAY 320 100ml IV ONE (15:05)
--- NOTE | 2025-04-02 15:56 | CT Scan Report ---
EXAMINATION: CT of the abdomen and pelvis performed after the administration of IV contrast TECHNIQUE: Helical CT images from the lung bases through the symphysis pubis were obtained with contrast. Coronal and sagittal reformatted images were generated at a workstation for further assessment. Dose reduction techniques were achieved by using automatic exposure control and/or adjustment of mA and/or kV according to patient size and/or use of iterative reconstruction technique. COMPARISON: 12/26/2024 HISTORY: Abdominal pain FINDINGS: Lung bases: Small bilateral pleural effusions are new. Few atelectatic bands are noted in the right lung base. A calcified granuloma is noted in the left lung base. Cardiomegaly noted. Pacemaker leads are noted in situ. Liver, biliary system: Liver appears normal in size with smooth margins and normal attenuation values. The intra and extrahepatic bile ducts appear unremarkable. Common bile duct appears unremarkable. No mass or abnormal post contrast enhancement seen. The portal vein is patent. Gallbladder fossa: Post cholecystectomy status. No gross pathology or fluid seen. Spleen: The spleen appears normal in size with homogeneous parenchyma. Pancreas: The pancreas appears normal in size with normal contours and homogenous parenchyma. The pancreatic duct appears unremarkable. Adrenals: Both adrenal glands appear unremarkable. Kidneys, ureter, bladder: A nonobstructing curvilinear 7 mm stone is again seen at the inferior right kidney. Very tiny, few punctate additional stones is seen in both kidneys. Simple cysts. No hydronephrosis. No obstructing ureteral stone. Distal esophagus and stomach: Visualized distal esophagus and stomach appears unremarkable. Bowel: Small and large intestine appears unremarkable. No dilatation or stenosis in the visualized bowel. Mild fecal loading of large bowel. Vascular: Imaged portions of major blood vessels show atherosclerotic disease. No aneurysmal dilation or dissection noted. Pelvis: No evidence of enlarged lymph nodes, ascites or free air. Multiple phleboliths are noted in the pelvis. Pelvic viscera: Poorly visualized secondary to metallic streak artifacts from the left hip arthroplasty. Musculoskeletal: Images bones and spine show mild to moderate degenerative changes. No aggressive-appearing osseous lesions noted. IMPRESSION: Unremarkable appearance of the pancreas. Nonobstructing renal calculi. No hydronephrosis or ureteral stone. New small pleural effusions. Cardiomegaly. Electronically signed by Hank Doshi 04-02-2025 3:55 PM
[2025-04-02] MEDS: PANTOprazole 40 MG/10 ML SYR IV STA (16:23)
[2025-04-02 16:32] LABS: Appearance Urine Clear (Clear); Bacteria Urine Automated None Seen (None Seen); Glucose Urine UA Negative (Negative); RBC Urine Automated 0-2 /hpf (0-2); WBC Urine Automated 0-5 /hpf (0-5)
[2025-04-02] MEDS: FUROSEMIDE 40 MG/4 ML VIAL IV ONE (16:45)
[2025-04-02] MEDS ORDERED: SODIUM CHLORIDE 0.9% 100 ML IV PRN (17:05)
[2025-04-02 17:15] LABS: INR 1.0 (0.9-1.1); Partial Thromboplastin Time 26 Seconds (21-31); Prothrombin Time 10.5 Seconds (9.0-12.0)
--- NOTE | 2025-04-02 17:22 | XRay Report ---
Chest radiograph, one view History: GI bleed Comparison: 01/10/2025 Findings: Single AP view of the chest performed. No focal consolidation or pleural effusion. There is likely some mild right basilar atelectasis. No pneumothorax. The cardiomediastinal silhouette is enlarged. Left chest wall dual-lead AICD. Enlarged pulmonary vascularity. No evidence for lymphadenopathy. No visualized bony or soft tissue abnormality. Impression: No acute process Electronically signed by Hank Doshi 04-02-2025 5:21 PM
--- NOTE | 2025-04-02 17:47 | History & Physical Report ---
Date of Service April 02, 2025 Assessment & Plan (1) Iron deficiency anemia: Plan: Suspected. Iron level pending. Hemoglobin 7.0 on admission. 1 unit packed red blood cells ordered. Serial labs (2) Acute right flank pain: Plan: No evidence of zoster outbreak. Symptomatic treatment. (3) Epigastric abdominal pain: Plan: She could have underlying gastritis. Continue Protonix and add Carafate. Will consult GI service if symptoms persist (4) COPD (chronic obstructive pulmonary disease): Plan: Stable. Nebulizer treatments (5) High-grade atrioventricular block: Plan: Status post pacemaker implantation. Telemetry (6) Paroxysmal atrial fibrillation: Plan: Continue rate control measures. Discontinue Xarelto. Telemetry (7) Type 2 diabetes mellitus: Plan: He hold Lantus and metformin. Sliding scale coverage for now. Plan Hopeful discharge to home within the next 2 to 3 days History of Present Illness Chief Complaint: Flank pain and epigastric pain Primary Care Provider: eFlicia Costa MD 79-year-old female with right flank pain and epigastric pain for several days if not weeks that she does not feel has been evaluated as an outpatient and she came to the ER out of frustration. She was found to have hemoglobin level of 7.0 but she denies overt blood loss or hematochezia. She has chronically black stool from her oral iron pills. She received 1 unit packed red blood cells in the ED. Fecal occult blood testing and iron levels are pending. Xarelto will be discontinued as a likely source is chronic GI blood loss from the systemic anticoagulation. She denies palpitations or syncope. is at the bedside. Allergies Allergy/AdvReac Type Severity Reaction Status Date / Time No Known Allergies Allergy Verified 04/02/25 16:21 Home Medications Medication Instructions Recorded Confirmed Type multivitamin 1 tab PO QAM 04/18/21 04/02/25 History vit C 250 mg-vit E 90 mg-zinc 40 1 tab PO BID 07/21/22 04/02/25 History mg-copper 1 pg-[id number] capsule (PreserVision AREDS-2) magnesium oxide 400 mg (241.3 mg 400 mg PO BID #60 tabs 07/24/22 04/02/25 Rx magnesium) tablet lancets 33 gauge #200 ea 03/06/23 03/17/25 Rx insulin glargine 100 unit/mL (3 8 unit subcut HS 06/24/23 04/02/25 History mL) subcutaneous pen (Lantus Solostar U-100 Insulin) lactobacillus combination no.9 4 4,000 mmu cells PO QPM 06/24/23 04/02/25 History billion cell capsule (Adult 50 Plus Probiotic) docusate sodium 100 mg tablet 100 mg PO BID 08/21/23 04/02/25 History (Stool Softener) ferrous sulfate 325 mg (65 mg 325 mg PO 3XWK 02/08/24 04/02/25 History iron) tablet insulin aspart U-100 100 unit/mL See Rx Instructions subcut 03/04/24 04/02/25 Rx (3 mL) subcutaneous pen (Novolog .COMPLEX #30 mL FlexPen U-100 Insulin aspart) blood sugar diagnostic (OneTouch #300 ea 05/09/24 03/17/25 Rx Verio test strips) fluticasone propionate 50 1 spray intranasal BID #18.2 mL 05/24/24 04/02/25 Rx mcg/actuation nasal spray,suspension (Flonase Allergy Relief) ensifentrine 3 mg/2.5 mL 3 mg (2.5 mL) inhalation BID #150 07/18/24 04/02/25 Rx suspension for nebulization mL (Ohtuvayre) rivaroxaban 10 mg tablet (Xarelto) 10 mg PO QPM #90 tabs 08/29/24 04/02/25 Rx cyanocobalamin (vitamin B-12) 1,000 mcg PO 3XWK 10/06/24 04/02/25 History 1,000 mcg capsule pen needle, diabetic 31 gauge x #200 ea 11/21/24 03/17/25 Rx 3/16" (UltiCare Pen Needle) furosemide 20 mg tablet 20 mg PO QAM PRN edema #30 tabs 01/13/25 04/02/25 Rx ropinirole 0.5 mg tablet 1.5 mg (3 x 0.5 mg) PO HS 90 days 01/23/25 04/02/25 Rx #270 tabs metformin 1,000 mg tablet 1,000 mg PO QAM #90 tabs 02/03/25 04/02/25 Rx simvastatin 40 mg tablet 40 mg PO HS #90 tabs 02/06/25 04/02/25 Rx budesonide 160 mcg-glycopyr 9 2 inh inhalation BID #3 Inhalers 02/15/25 04/02/25 Rx mcg-formot 4.8 mcg/actuation HFA inhaler (Breztri Aerosphere) albuterol sulfate 90 mcg/actuation 2 puff inhalation Q4H PRN 02/23/25 04/02/25 Rx aerosol inhaler (Ventolin HFA) Shortness Of Breath Or Wheezing #8.5 grams ipratropium 0.5 mg-albuterol 3 mg 3 ml inhalation QID PRN shortness 02/23/25 04/02/25 Rx (2.5 mg base)/3 mL nebulization of breath or wheezing #360 mL soln amoxicillin 500 mg tablet 500 mg PO BID 30 days #60 tabs 03/08/25 04/02/25 Rx citalopram 20 mg tablet 20 mg PO DAILY 90 days #90 tabs 03/17/25 04/02/25 Rx lorazepam 0.5 mg tablet 0.25 mg (1/2 x 0.5 mg) PO TID PRN 03/17/25 04/02/25 Rx anxiety or shortness of breath #15 tabs pantoprazole 40 mg tablet,delayed 40 mg PO QAM #90 tabs 03/17/25 04/02/25 Rx release dupilumab 300 mg/2 mL subcutaneous 300 mg subcut .Q2WKS 04/02/25 04/02/25 History pen injector nystatin-triamcinolone 100,000 1 applic topical TID PRN SKIN 04/02/25 04/02/25 History unit/gram-0.1 % topical ointment IRRITATIONS sodium chloride, sodium 1 ea DAILY 04/02/25 04/02/25 History bicarb-nasal rinse squeeze bottle with packet (Neilmed Sinus Rinse Complete with packet) Past Med/Surg History Problem List (Updated 04/02/25 @ 17:46 by Gabe Mazariegos MD) Type 2 diabetes mellitus Iron deficiency anemia Acute hypernatremia (Acute) Symptomatic anemia (Acute) Acute right flank pain (Acute) Epigastric abdominal pain (Acute) UGIB (upper gastrointestinal bleed) (Acute) Microscopic hematuria Aortic stenosis Abnormal chest CT Systolic murmur COPD (chronic obstructive pulmonary disease) Selective deficiency of IgG (Chronic) Pernicious anemia (Chronic) Mediastinal adenopathy (Chronic) Iron deficiency anemia secondary to inadequate dietary iron intake High-grade 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 of 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 (Chronic) Paroxysmal atrial fibrillation Osteoporosis Diabetic peripheral 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) Restless leg syndrome (Chronic) Vitamin D deficiency Obstructive sleep apnea (Chronic) Refuses device per records Multiple pulmonary nodules (Chronic) HTN (hypertension) (Chronic) Esophageal reflux (Chronic) Dyslipidemia (Chronic) Medical History Nephrolithiasis Congestive heart failure Asthma-COPD overlap syndrome Acute kidney injury Severe aortic stenosis Chronic respiratory failure with hypoxia Type 2 diabetes mellitus, with long-term current use of insulin SNHL (sensorineural hearing loss) BPPV (benign paroxysmal positional vertigo) On home O2 2 LPM continuous Osteoarthritis History of DVT (deep vein thrombosis) RLE post op (approximtely 2 years ago) Taking Xarelto Insomnia Peptic ulcer disease Hx of fracture of femur Surgical History History of lithotripsy History of eye removal Right History of appendectomy History of esophagogastroduodenoscopy (EGD) EGD (11/13/20): MAC at [facility]. 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 Hx of eye surgery left H/O total hip arthroplasty left Hx of total knee arthroplasty R/L History of tonsillectomy and adenoidectomy Hx of cholecystectomy H/O: hysterectomy Family History Father Cardiovascular disease Diabetes Asthma Heart disease Brother Diabetes Cardiac disorder Mother Breast cancer Other Hypertension No family history of adverse response to anesthesia No family history of bleeding disorder Denies family history of Ovarian cancer Prostate cancer Myocardial infarction Colorectal cancer Social History Smoking Status: Never smoker Second Hand Exposure: Yes; Do You Dip or Chew Tobacco: No; Hx Alcohol Use: No Hx Substance Use: No Preferred Language: Indian Communication Ability: Effective 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 Chronic melena from oral iron. Epigastric discomfort GUno urinary retention, no urinary incontinence, no dysuria, no hematuria Musculoskeletalpersistent right flank pain without rash. No joint pain, no muscle tenderness Skinno bruising, no rashes, no pruritus Neurono isolated weakness, no paresthesia, no weakness Psychno depression, no anxiety Physical Exam 2 Physical Exam: General-alert and oriented x3, no fever, no chills HEENT-head atraumatic and normocephalic, enucleated right eye years ago Neck-no lymphadenopathy or thyromegaly, trachea midline Chest-clear to auscultation. No rales, wheezing or rhonchi Cardiac-regular rate and rhythm, normal S1 and S2 Abdomen-normal bowel sounds, no hepatosplenomegaly. Mildly tender epigastric region. No masses. No rebound or guarding Skinno evidence of zoster outbreak right flank Extremities-no cyanosis, clubbing, or edema Neuro-cranial nerves II through XII intact, motor and sensory function within normal limits, strength symmetrical, no focal deficits Psych-normal affect, normal mood Results & Data Results & Data Vital Signs (Past 12 Hours) Vital Signs Temp Pulse Pulse Resp BP BP Pulse Ox 04/02/25 16:14 04/02/25 16:00 67 20 166/59 H 97 04/02/25 14:05 72 20 135/77 98 04/02/25 13:53 84 04/02/25 12:59 36.9 C 88 22 135/55 L 91 O2 Del Method O2 Flow Rate 04/02/25 16:14 Nasal Cannula 4 04/02/25 16:00 Room Air 07/13/25 14:05 04/02/25 13:53 04/02/25 12:59 Nasal Cannula 3 Laboratory Results 04/02/25 13:08 04/02/25 14:02 Code Status & VTE Plan Code Status Full code VTE Prophylaxis Plan VTE Prophylaxis will be ordered: Yes PG Care Time/CCT Total # of Minutes Spent Total Time Spent with Patient: Total time spent is greater than 50% in coordination of care (as documented) at patient's floor/unit and/or counseling patient: Coding Level of Care Code 39469 INT INP/OBS CARE 3/75MIN Diagnoses Iron deficiency anemia D50.9 Acute right flank pain R10.9 Epigastric abdominal pain R10.13 Chronic obstructive pulmonary disease with acute exacerbation J44.1 COPD type: COPD with acute exacerbation High-grade atrioventricular block I44.39 Paroxysmal atrial fibrillation I48.0 Type 2 diabetes mellitus E11.9 (4) COPD (chronic obstructive pulmonary disease) COPD type: COPD with acute exacerbation Qualified Code(s): J44.1 - Chronic obstructive pulmonary disease with (acute) exacerbation
[2025-04-02] MEDS ORDERED: ONDANSETRON INJ 2 MG/ML 2 ML VIAL IV PRN (20:18)
[2025-04-02] MEDS ORDERED: GLUCAGON FOR INJ 1 MG VIAL SQ PRN (20:18)
[2025-04-02] MEDS ORDERED: LORazepam 0.5 MG TAB PO PRN (20:18)
[2025-04-02] MEDS ORDERED: GLUCOSE 10 TAB/TUBE PO PRN (20:18)
[2025-04-02] MEDS ORDERED: CARBOHYDRATES FOR HYPOGLYCEMIA PO PRN (20:18)
[2025-04-02] MEDS ORDERED: GLUCOSE 40% GEL 15 GM TUBE PO PRN (20:18)
[2025-04-02 20:38] LABS: Iron 15.0 mcg/dl (35-150)
[2025-04-02] MEDS: SODIUM CHLORIDE 0.9% 100 ML IV PRN (20:43)
[2025-04-02] MEDS: SODIUM CHLORIDE 0.9% 1,000 ML IV SCH (20:45)
[2025-04-02] MEDS: INSULIN ASPART PER UNIT CHARGE SC SCH (20:56)
[2025-04-02] MEDS: MAGNESIUM OXIDE 400 MG TAB PO SCH (20:58)
[2025-04-02] MEDS: FLUTICASONE PROPIONATE NA SPR 16 GM BTL NAE SCH (21:01)
[2025-04-02] MEDS: ENSIFENTRINE INH SCH (22:37)
[2025-04-02] MEDS: [UNRECOGNIZED DRUG - OTHER] INH SCH (22:37)
[2025-04-03 03:31] LABS: Base Excess VBG 6.5 mEq/L; HCO3 VBG 38 mmol/L; Oxygen Saturation VBG 95.8 %; PCO2 VBG 95 mmHg (38-50); PO2 VBG 69 mmHg; pH VBG 7.21 (7.36-7.41)
[2025-04-03 03:37] LABS: Hematocrit (blood only) 28.9 % (37.0-47.0); Hemoglobin 8.4 g/dl (12.0-16.0); Immature Granulocytes # (auto) 0.06 K/uL (0.01-0.20); Immature Granulocytes % (auto) 0.8 %; Mean Corpuscular Hemoglobin 27.5 pg (25.0-34.0); Mean Corpuscular Volume 94.4 fL (80.0-100.0); Platelet Count 240 K/uL (130-400); RDW Standard Deviation 49.9 fL (36.4-46.3); Red Blood Count 3.06 M/uL (4.20-5.40); White Blood Count 7.47 K/ul (4.8-10.8)
--- NOTE | 2025-04-03 03:46 | Communication Note ---
Date of Service: April 03, 2025 Notified by nurse that pt seemed more sedated/out of it than earlier in the evening. Went to bedside to assess. Pt is sitting up in med, moderate respirator y effort noted. Pt oriented but does sit with eyes closed most of the time. Pt notes that she does sometimes have increased resp effort at home. Overall, pt appears uncomfortable, fatigued, and with increased work of breathing. CXR ordered, VBG done with pH 7.2 and pCO2 of 95. Lactate wnl. Advised nurse to set up pt on bipap. To repeat VBG after placement of bipap to assess for improvement. Resident Activity Tracking Resident Involvement: Resident Care Provided Care Provided: Adult Hospital Medicine
[2025-04-03 03:51] LABS: Anion Gap 5.0 (3-11); Blood Urea Nitrogen 21.0 mg/dl (6-23); Calcium 8.8 mg/dl (8.6-10.3); Carbon Dioxide 36.0 mmol/L (21-32); Chloride 101.0 mmol/L (98-107); Creatinine Clr Calc Pharmacy 47.0 ml/min; Glucose 128.0 mg/dl (70-99(Fasting)); Potassium 4.5 mmol/L (3.5-5.1); Sodium 142.0 mmol/L (136-145)
--- NOTE | 2025-04-03 03:53 | XRay Report ---
EXAM: XR chest 1V portable CLINICAL HISTORY: SOB TECHNIQUE: Radiograph of chest was acquired. COMPARISON: 04/02/2025 16:07:00 [employer]LECT[employer]IC [employer]OR [employer] FINDINGS: Bilateral pulmonary hilar congestion and prominent bronchovascular markings. Blunted bilateral costophrenic angles, likely secondary to pleural effusion. Two small pulmonary nodules in right lower lobe. Decreased right lower zone hazy opacity. The cardiomediastinal silhouette appears enlarged. No acute osseous abnormality. Implantable cardiac device with leads in situ. IMPRESSION: 1. Decreased right lower zone hazy opacity. 2. Bilateral pulmonary hilar congestion and prominent bronchovascular markings. (Stable) 3. Blunted bilateral costophrenic angles, likely secondary to pleural effusion. (Stable) 4. Two small pulmonary nodules in right lower lobe. (Stable) Electronically signed by Joseph Guzman 04-03-2025 03:52 AM
[2025-04-03 05:11] LABS: Base Excess VBG 6.6 mEq/L; HCO3 VBG 37 mmol/L; Oxygen Saturation VBG 96.5 %; PCO2 VBG 87 mmHg (38-50); PO2 VBG 71 mmHg; pH VBG 7.24 (7.36-7.41)
[2025-04-03] MEDS: ALBUT/IPRATROP 3MG/0.5MG NEB 3 ML VIAL NEB SCH (05:44)
[2025-04-03] MEDS: FUROSEMIDE 40 MG/4 ML VIAL IV ONE (08:59)
[2025-04-03] MEDS ORDERED: NON-FORMULARY MEDICATION (Budesonide-Glycopyr-Formoterol [Breztri Aerosphere] 160-9-4.8 mc INH SCH (09:00)
[2025-04-03] MEDS: CITALOPRAM 20 MG TAB PO SCH (09:00)
[2025-04-03] MEDS: NITROGLYCERIN 2% OINTMENT 30GM TUBE EXT SCH (09:00)
--- NOTE | 2025-04-03 11:07 | Electrocardiogram Report ---
Test Reason : Blood Pressure : */* mmHG Vent. Rate : 90 BPM Atrial Rate : 100 BPM P-R Int : 264 ms QRS Dur : 166 ms QT Int : 398 ms P-R-T Axes : 30 -61 56 degrees QTcB Int : 486 ms Sinus rhythm with 1st degree A-V block Premature ventricular complexes Right bundle branch block Left anterior fascicular block Bifascicular block Septal infarct , age undetermined Abnormal ECG When compared with ECG of 10-Jan-2025 18:15, Septal infarct is now Present Confirmed by Rajendra Daniels ([id number]) on 04/03/2025 11:07:19 AM Referred By: REFERRED SELF Confirmed By: Rajendra Daniels
--- NOTE | 2025-04-03 11:16 | Electrocardiogram Report ---
Test Reason : Blood Pressure : */* mmHG Vent. Rate : 67 BPM Atrial Rate : 67 BPM P-R Int : 248 ms QRS Dur : 162 ms QT Int : 430 ms P-R-T Axes : 62 -53 50 degrees QTcB Int : 454 ms Sinus rhythm with sinus arrhythmia with 1st degree A-V block Right bundle branch block Left anterior fascicular block Bifascicular block Septal infarct (cited on or before 02-Apr-2025) Abnormal ECG When compared with ECG of 02-Apr-2025 13:42, (unconfirmed) No significant change was found Confirmed by Rajendra Daniels ([id number]) on 04/03/2025 11:12:12 AM Referred By: REFERRED SELF Confirmed By: Rajendra Daniels
--- NOTE | 2025-04-03 11:19 | Electrocardiogram Report ---
Test Reason : Blood Pressure : */* mmHG Vent. Rate : 65 BPM Atrial Rate : 65 BPM P-R Int : 186 ms QRS Dur : 158 ms QT Int : 440 ms P-R-T Axes : 100 -55 21 degrees QTcB Int : 457 ms Sinus rhythm with Premature atrial complexes Right bundle branch block Left anterior fascicular block Bifascicular block Abnormal ECG When compared with ECG of 02-Apr-2025 17:25, (unconfirmed) Premature atrial complexes are now Present OR interval has decreased Confirmed by Rajendra Daniels ([id number]) on 04/03/2025 11:19:09 AM Referred By: REFERRED SELF Confirmed By: Rajendra Daniels
--- NOTE | 2025-04-03 13:12 | Hospitalist Progress Note ---
Date of Service April 03, 2025 Assessment & Plan (1) Acute diastolic (congestive) heart failure: Plan: Parenteral Lasix therapy. Blood pressure control. Olivares catheter in place to monitor accurate urine output. Serial x-ray (2) Acute hypoxic respiratory failure: Plan: Supplemental oxygen to maintain saturation greater than 90%. Wean off as tolerated (3) Iron deficiency anemia: Plan: Iron levels are low as expected. Parenteral iron replacement will start tomorrow, April 04. Hemoglobin 7.0 on admission. Hemoglobin improved to 8.4 after 1 unit packed red blood cells. Will follow (4) Acute right flank pain: Plan: No evidence of zoster outbreak. Symptomatic treatment. Resolved (5) Epigastric abdominal pain: Plan: Suspected underlying gastritis. Resolved with Protonix and Carafate therapy (6) COPD (chronic obstructive pulmonary disease): Plan: Stable. Nebulizer treatments (7) High-grade atrioventricular block: Plan: Status post pacemaker implantation. Telemetry (8) Paroxysmal atrial fibrillation: Plan: Continue rate control measures. Discontinued Xarelto due to iron deficiency anemia from suspected chronic GI blood loss. Telemetry (9) Type 2 diabetes mellitus: Plan: Lantus and metformin currently on hold. Sliding scale coverage for now. Plan OT and PT assessments will be requested tomorrow, April 04. This will determine eventual disposition Admission and Anticipated Discharge Date Admission Date: April 02, 2025 Subjective Alert and oriented. No distress at the time of my rounds today, April 03. Unfortunately she developed some respiratory failure last night that appears to be due to congestive heart failure. She may have even had flash pulmonary edema. Topical nitrates have been applied and she is diuresing well with parenteral Lasix therapy. BNP ordered and pending. Olivares catheter has been placed for accurate urine output measurements. Hemoglobin improved to 8.4 after 1 unit packed red blood cells. Parenteral iron replacement will start tomorrow, April 04. Fecal occult blood is still pending. IV fluids have been discontinued Review of Systems 2 Review of Systems: Constitutionalno fever or chills ENTno blurred vision, no double vision, no epistaxis, no sore throat Respiratoryno cough, no wheezing. She developed shortness of breath at rest last night Cardiacno palpitations, no chest pain, no syncope Genet nausea, vomiting, diarrhea, hematochezia. Chronic melena from oral iron. Epigastric discomfort GUno urinary retention, no urinary incontinence, no dysuria, no hematuria Musculoskeletalpersistent right flank pain without rash. No joint pain, no muscle tenderness Skinno bruising, no rashes, no pruritus Neurono isolated weakness, no paresthesia, no weakness Psychno depression, no anxiety Physical Exam 2 Physical Exam: General-alert and oriented x3, no fever, no chills HEENT-head atraumatic and normocephalic, enucleated right eye years ago Neck-no lymphadenopathy or thyromegaly, trachea midline Chest-bibasilar inspiratory rales. No rhonchi. No wheezing Cardiac-regular rate and rhythm, normal S1 and S2 Abdomen-normal bowel sounds, no hepatosplenomegaly. Mildly tender epigastric region. No masses. No rebound or guarding Skinno evidence of zoster outbreak right flank Extremities-no cyanosis, clubbing, or edema Neuro-cranial nerves II through XII intact, motor and sensory function within normal limits, strength symmetrical, no focal deficits Psych-normal affect, normal mood Results & Data Results & Data Vital Signs (Past 12 Hours) Vital Signs Temp Pulse Pulse Resp BP Pulse Ox O2 Del Method 04/03/25 12:29 77 18 98 Nasal Cannula 04/03/25 11:41 36.6 C 75 19 167/58 H 99 Nasal Cannula 04/03/25 10:36 Nasal Cannula 04/03/25 07:41 36.9 C 74 20 159/56 H 96 BiPAP 04/03/25 07:12 77 16 94 04/03/25 07:12 77 16 94 BiPAP 04/03/25 05:45 66 13 96 04/03/25 05:45 70 15 96 BiPAP 04/03/25 03:53 66 21 98 04/03/25 02:37 37.2 C 68 20 176/62 H 97 Nasal Cannula O2 Flow Rate FiO2 04/03/25 12:29 4 04/03/25 11:41 4 04/03/25 10:36 3 04/03/25 07:41 04/03/25 07:12 40 04/03/25 07:12 40 04/03/25 05:45 40 04/03/25 05:45 40 04/03/25 03:53 40 04/03/25 02:37 Laboratory Results 04/03/25 03:20 04/03/25 03:20 PG Care Time/CCT Total # of Minutes Spent Total Time Spent with Patient: Total time spent is greater than 50% in coordination of care (as documented) at patient's floor/unit and/or counseling patient: Coding Level of Care Code 18546 SUB INP/OBS CARE 3/50MIN Diagnoses Acute diastolic (congestive) heart failure I50.31 Acute hypoxic respiratory failure J96.01 Iron deficiency anemia D50.9 Acute right flank pain R10.9 Epigastric abdominal pain R10.13 Chronic obstructive pulmonary disease with acute exacerbation J44.1 COPD type: COPD with acute exacerbation High-grade atrioventricular block I44.39 Paroxysmal atrial fibrillation I48.0 Type 2 diabetes mellitus E11.9 (6) COPD (chronic obstructive pulmonary disease) COPD type: COPD with acute exacerbation Qualified Code(s): J44.1 - Chronic obstructive pulmonary disease with (acute) exacerbation
[2025-04-03] MEDS: FUROSEMIDE 40 MG/4 ML VIAL IV SCH (21:21)
[2025-04-04 06:16] LABS: Hematocrit (blood only) 25.6 % (37.0-47.0); Hemoglobin 7.6 g/dl (12.0-16.0); Immature Granulocytes # (auto) 0.03 K/uL (0.01-0.20); Immature Granulocytes % (auto) 0.4 %; Mean Corpuscular Hemoglobin 26.8 pg (25.0-34.0); Mean Corpuscular Volume 90.1 fL (80.0-100.0); Platelet Count 224 K/uL (130-400); RDW Standard Deviation 46.8 fL (36.4-46.3); Red Blood Count 2.84 M/uL (4.20-5.40); White Blood Count 6.67 K/ul (4.8-10.8)
[2025-04-04 06:36] LABS: Anion Gap 5.0 (3-11); Blood Urea Nitrogen 30.0 mg/dl (6-23); Calcium 8.5 mg/dl (8.6-10.3); Carbon Dioxide 40.0 mmol/L (21-32); Chloride 96.0 mmol/L (98-107); Creatinine Clr Calc Pharmacy 40.4 ml/min; Glucose 109.0 mg/dl (70-99(Fasting)); Potassium 4.0 mmol/L (3.5-5.1); Sodium 141.0 mmol/L (136-145)
[2025-04-04 06:43] LABS: Ovalocytes 1+; Polychromasia 1+; Stomatocytes 1+
--- NOTE | 2025-04-04 08:04 | XRay Report ---
EXAM: XR chest 1V portable CLINICAL HISTORY: CHF, hypoxia TECHNIQUE: An X-ray image of the chest is obtained in AP projection. COMPARISON: CR 04/03/2025. FINDINGS: Pulmonary Parenchyma: Bilateral pulmonary hilar congestion and prominent bronchovascular markings. Blunted bilateral costophrenic angles, likely secondary to small pleural effusion. Two small pulmonary nodules in the right lower lobe. Stable right lower zone hazy opacity. Heart and Mediastinum: The cardiomediastinal silhouette appears enlarged. S/p cardiac pacemaker with leads in place. No mediastinal widening or masses. No hilar or mediastinal lymphadenopathy. Bony Thorax: Bony thorax appears intact without fractures or deformities. Soft Tissues: Soft tissues overlying the chest wall are unremarkable. IMPRESSION: 1. Bilateral pulmonary hilar congestion and prominent bronchovascular markings. Unchanged. 2. Blunted bilateral costophrenic angles, likely secondary to small pleural effusion. Unchanged. 3. Two small pulmonary nodules in the right lower lobe. Unchanged. 4. Unchanged right lower zone hazy opacity. 5. Compared to CR 04/03/2025. No interval change. Electronically signed by Boyd Ramos 04-04-2025 08:03 AM
[2025-04-04] MEDS: IRON SUCROSE 300 MG in SODIUM CHLORIDE 0.9% 250 ML IV ONE (09:50)
--- NOTE | 2025-04-04 11:46 | Hospitalist Progress Note ---
Date of Service April 04, 2025 Assessment & Plan (1) Acute diastolic (congestive) heart failure: Plan: Parenteral Lasix therapy down titrated to once daily dosing today, April 04. Improved. Olivares catheter was placed monitor accurate urine output. This can be removed before discharge. Serial x-ray (2) Acute hypoxic respiratory failure: Plan: Acute on chronic. She is now back to her baseline oxygen use. Supplemental oxygen to maintain saturation greater than 90%. (3) Iron deficiency anemia: Plan: Iron levels are low as expected. Parenteral iron replacement started today, April 04. Hemoglobin 7.0 on admission. Hemoglobin improved to 8.4 after 1 unit packed red blood cells and has drifted down to 7.6 today, April 04. Will follow (4) Acute right flank pain: Plan: No evidence of zoster outbreak. Symptomatic treatment. Resolved (5) Epigastric abdominal pain: Plan: Suspected underlying gastritis. Resolved with Protonix and Carafate therapy (6) COPD (chronic obstructive pulmonary disease): Plan: Stable. Nebulizer treatments (7) High-grade atrioventricular block: Plan: Status post pacemaker implantation. Telemetry (8) Paroxysmal atrial fibrillation: Plan: Continue rate control measures. Discontinued Xarelto due to iron deficiency anemia from suspected chronic GI blood loss. Telemetry (9) Type 2 diabetes mellitus: Plan: Lantus and metformin currently on hold. Sliding scale coverage for now. Fasting glucose this morning ,April 04, was 109 Plan OT and PT assessments pending. This will determine eventual disposition within the next day or 2 Admission and Anticipated Discharge Date Admission Date: April 02, 2025 Subjective Alert and oriented. No distress. Brisk diuresis with intravenous Lasix. Her chest x-ray done today, April 04 looks better. Lasix down titrated to once daily dosing. She is now down to her usual oxygen use. Parenteral iron replacement will start today, April 04. Hemoglobin improved to 8.4 after 1 unit packed red blood cells administered on admission and today is 7.6. No overt blood loss however. Xarelto has been discontinued and I think it would be best if she remains off Xarelto permanently. Olivares catheter was placed this admission with onset of acute diastolic CHF and probably can be removed before discharge. OT and PT assessments requested. Review of Systems 2 Review of Systems: Constitutionalno fever or chills ENTno blurred vision, no double vision, no epistaxis, no sore throat Respiratoryno cough, no wheezing. No shortness of breath at rest. Cardiacno palpitations, no chest pain, no syncope Genet nausea, vomiting, diarrhea, hematochezia. Chronic melena from oral iron. Epigastric discomfort GUno urinary retention, no urinary incontinence, no dysuria, no hematuria Musculoskeletalpersistent right flank pain without rash. No joint pain, no muscle tenderness Skinno bruising, no rashes, no pruritus Neurono isolated weakness, no paresthesia, no weakness Psychno depression, no anxiety Physical Exam 2 Physical Exam: General-alert and oriented x3, no fever, no chills HEENT-head atraumatic and normocephalic, enucleated right eye years ago Neck-no lymphadenopathy or thyromegaly, trachea midline Chest-bibasilar inspiratory rales have resolved. No rhonchi. No wheezing Cardiac-regular rate and rhythm, normal S1 and S2 Abdomen-normal bowel sounds, no hepatosplenomegaly. Mildly tender epigastric region. No masses. No rebound or guarding Skinno evidence of zoster outbreak right flank Extremities-no cyanosis, clubbing, or edema Neuro-cranial nerves II through XII intact, motor and sensory function within normal limits, strength symmetrical, no focal deficits Psych-normal affect, normal mood Results & Data Results & Data Vital Signs (Past 12 Hours) Vital Signs Temp Pulse Pulse Resp BP Pulse Ox O2 Del Method 04/04/25 10:51 37.2 C 70 18 147/60 H 97 Nasal Cannula 04/04/25 08:00 71 04/04/25 08:00 Nasal Cannula 04/04/25 07:22 36.6 C 77 18 160/61 H 100 Nebulizer 04/04/25 07:18 73 16 96 Nasal Cannula 04/04/25 05:44 85 04/04/25 03:42 77 18 95 Nasal Cannula 04/04/25 03:23 36.6 C 74 18 142/63 H 98 Nasal Cannula O2 Flow Rate 04/04/25 10:51 3 04/04/25 08:00 04/04/25 08:00 3 04/04/25 07:22 04/04/25 07:18 3 04/04/25 05:44 04/04/25 03:42 3 04/04/25 03:23 4 Laboratory Results 04/04/25 05:46 04/04/25 05:46 PG Care Time/CCT Total # of Minutes Spent Total Time Spent with Patient: Total time spent is greater than 50% in coordination of care (as documented) at patient's floor/unit and/or counseling patient: Coding Level of Care Code 13997 SUB INP/OBS CARE 3/50MIN Diagnoses Acute diastolic (congestive) heart failure I50.31 Acute hypoxic respiratory failure J96.01 Iron deficiency anemia D50.9 Acute right flank pain R10.9 Epigastric abdominal pain R10.13 Chronic obstructive pulmonary disease with acute exacerbation J44.1 COPD type: COPD with acute exacerbation High-grade atrioventricular block I44.39 Paroxysmal atrial fibrillation I48.0 Type 2 diabetes mellitus E11.9 (6) COPD (chronic obstructive pulmonary disease) COPD type: COPD with acute exacerbation Qualified Code(s): J44.1 - Chronic obstructive pulmonary disease with (acute) exacerbation
[2025-04-04] MEDS ORDERED: ALBUT/IPRATROP 3MG/0.5MG NEB 3 ML VIAL NEB PRN (17:36)
[2025-04-05 06:12] LABS: Hematocrit (blood only) 27.6 % (37.0-47.0); Hemoglobin 8.2 g/dl (12.0-16.0); Immature Granulocytes # (auto) 0.02 K/uL (0.01-0.20); Immature Granulocytes % (auto) 0.3 %; Mean Corpuscular Hemoglobin 26.9 pg (25.0-34.0); Mean Corpuscular Volume 90.5 fL (80.0-100.0); Platelet Count 237 K/uL (130-400); RDW Standard Deviation 47.9 fL (36.4-46.3); Red Blood Count 3.05 M/uL (4.20-5.40); White Blood Count 5.90 K/ul (4.8-10.8)
[2025-04-05 06:30] LABS: Anion Gap 5.0 (3-11); Blood Urea Nitrogen 28.0 mg/dl (6-23); Calcium 8.4 mg/dl (8.6-10.3); Carbon Dioxide 42.0 mmol/L (21-32); Chloride 95.0 mmol/L (98-107); Creatinine Clr Calc Pharmacy 43.3 ml/min; Glucose 106.0 mg/dl (70-99(Fasting)); Potassium 3.8 mmol/L (3.5-5.1); Sodium 142.0 mmol/L (136-145)
[2025-04-05] MEDS: FUROSEMIDE 40 MG/4 ML VIAL IV SCH (09:20)
[2025-04-05] MEDS ORDERED: POLYETHYLENE (MIRALAX) 17 GM PACK PO PRN (09:41)
[2025-04-05] MEDS: DOCUSATE SODIUM 100 MG CAP PO SCH (10:49)
--- NOTE | 2025-04-05 15:10 | Hospitalist Progress Note ---
Date of Service April 05, 2025 Assessment & Plan (1) Acute diastolic (congestive) heart failure: Plan: IV Lasix once daily. Patient received a dose today. Discontinued IV Lasix. Will switch to p.o. Lasix starting tomorrow. Improved Discontinue Olivares catheter (2) Acute hypoxic respiratory failure: Plan: Acute on chronic. She is now back to her baseline oxygen use. Supplemental oxygen to maintain saturation greater than 90%. I asked the nurse to titrate down O2 as tolerated (3) Iron deficiency anemia: Plan: Iron levels are low as expected. Parenteral iron replacement started today, April 04. Hemoglobin 7.0 on admission. Hemoglobin improved to 8.4 after 1 unit packed red blood cells. 8.2 today. (4) Acute right flank pain: Plan: No evidence of zoster outbreak. Symptomatic treatment. Resolved (5) Epigastric abdominal pain: Plan: Suspected underlying gastritis. Resolved with Protonix and Carafate therapy (6) COPD (chronic obstructive pulmonary disease): Plan: Stable. Nebulizer treatments (7) High-grade atrioventricular block: Plan: Status post pacemaker implantation. Telemetry (8) Paroxysmal atrial fibrillation: Plan: Continue rate control measures. Discontinued Xarelto due to iron deficiency anemia from suspected chronic GI blood loss. Telemetry (9) Type 2 diabetes mellitus: Plan: Lantus and metformin currently on hold. Sliding scale coverage for now. Fasting glucose this morning ,April 04, was 109 Plan OT and PT recommends discharge to home. Will discharge to home in the next 1 or 2 days. Admission and Anticipated Discharge Date Admission Date: April 02, 2025 Subjective Patient feels well overall. Denies chest pain or shortness of breath at rest. Review of Systems Review of Systems: All systems reviewed & are unremarkable except as noted in Subjective Physical Exam Physical Exam: General: Awake, conversant Heart: S1, S2/regular rate and rhythm, no murmur rubs or gallops Lungs: Clear to auscultation bilaterally. Normal effort Abdomen: Soft/nontender/nondistended. No hepatosplenomegaly Extremities: No clubbing/cyanosis. No edema Behavior: Appropriate, cooperative Results & Data Results & Data Vital Signs (Past 12 Hours) Vital Signs Temp Pulse Resp BP Pulse Ox Pulse Ox O2 Del Method 04/05/25 13:28 82 18 97 Nasal Cannula 04/05/25 12:04 94 04/05/25 11:40 36.8 C 79 18 148/74 H 96 Nasal Cannula 04/05/25 11:06 96 Nasal Cannula 04/05/25 08:23 36.7 C 66 18 160/64 H 96 Nasal Cannula 04/05/25 08:00 Nasal Cannula 04/05/25 07:17 69 18 97 Nasal Cannula 04/05/25 03:52 36.6 C 88 18 150/60 H 97 Nasal Cannula O2 Flow Rate O2 Flow Rate 04/05/25 13:28 2 04/05/25 12:04 2 04/05/25 11:40 2 04/05/25 11:06 2 04/05/25 08:23 3 04/05/25 08:00 3 04/05/25 07:17 3 04/05/25 03:52 3 Laboratory Results Abnormal lab results 04/04/25 04/04/25 04/05/25 Range/Units 16:27 20:01 05:33 RBC 3.05 L (4.20-5.40) M/uL Hgb 8.2 L (12.0-16.0) g/dl Hct 27.6 L (37.0-47.0) % MCHC 29.7 L (32.0-36.0) g/dL RDW Std Deviation 47.9 H (36.4-46.3) fL RDW Coeff of Yevgeniy 14.6 H (11.5-14.5) % Lymph # (Auto) 0.95 L (1.20-3.40) K/uL Chloride 95 L (98-107) mmol/L Carbon Dioxide 42 H* (21-32) mmol/L BUN 28 H (6-23) mg/dl Creatinine 1.26 H (0.6-1.2) mg/dl BUN/Creatinine Ratio 22.2 H (10-20) Glucose 106 H (70-99(Fasting)) mg/dl POC Glucose 118 H 111 H (70-99) mg/dl Calcium 8.4 L (8.6-10.3) mg/dl Stool Occult Bld Scrn (Negative) 04/05/25 04/05/25 Range/Units 08:05 09:45 RBC (4.20-5.40) M/uL Hgb (12.0-16.0) g/dl Hct (37.0-47.0) % MCHC (32.0-36.0) g/dL RDW Std Deviation (36.4-46.3) fL RDW Coeff of Yevgeniy (11.5-14.5) % Lymph # (Auto) (1.20-3.40) K/uL Chloride (98-107) mmol/L Carbon Dioxide (21-32) mmol/L BUN (6-23) mg/dl Creatinine (0.6-1.2) mg/dl BUN/Creatinine Ratio (10-20) Glucose (70-99(Fasting)) mg/dl POC Glucose 111 H (70-99) mg/dl Calcium (8.6-10.3) mg/dl Stool Occult Bld Scrn Positive A (Negative) PG Care Time/CCT Total # of Minutes Spent Total Time Spent with Patient: Total time spent is greater than 50% in coordination of care (as documented) at patient's floor/unit and/or counseling patient: Coding Level of Care Code 81220 SUB INP/OBS CARE 2/35MIN Diagnoses Acute diastolic (congestive) heart failure I50.31 Acute hypoxic respiratory failure J96.01 Iron deficiency anemia D50.9 Acute right flank pain R10.9 Epigastric abdominal pain R10.13 Chronic obstructive pulmonary disease with acute exacerbation J44.1 COPD type: COPD with acute exacerbation High-grade atrioventricular block I44.39 Paroxysmal atrial fibrillation I48.0 Type 2 diabetes mellitus E11.9 (6) COPD (chronic obstructive pulmonary disease) COPD type: COPD with acute exacerbation Qualified Code(s): J44.1 - Chronic obstructive pulmonary disease with (acute) exacerbation
[2025-04-05] MEDS: DEXTROSE 50% 50 ML SYRINGE IV PRN (20:22)
[2025-04-06] MEDS ORDERED: FUROSEMIDE 40 MG TAB PO SCH (09:00)
[2025-04-06 09:40] LABS: Hematocrit (blood only) 28.3 % (37.0-47.0); Hemoglobin 8.6 g/dl (12.0-16.0); Mean Corpuscular Hemoglobin 27.1 pg (25.0-34.0); Mean Corpuscular Volume 89.3 fL (80.0-100.0); Platelet Count 219 K/uL (130-400); RDW Standard Deviation 46.8 fL (36.4-46.3); Red Blood Count 3.17 M/uL (4.20-5.40); White Blood Count 5.51 K/ul (4.8-10.8)
[2025-04-06 09:41] LABS: Anion Gap 4.0 (3-11); Blood Urea Nitrogen 21.0 mg/dl (6-23); Calcium 8.4 mg/dl (8.6-10.3); Carbon Dioxide 42.0 mmol/L (21-32); Chloride 94.0 mmol/L (98-107); Creatinine Clr Calc Pharmacy 53.4 ml/min; Glucose 157.0 mg/dl (70-99(Fasting)); Potassium 4.0 mmol/L (3.5-5.1); Sodium 140.0 mmol/L (136-145)
[2025-04-06 09:47] LABS: Immature Granulocytes # (auto) 0.01 K/uL (0.01-0.20); Immature Granulocytes % (auto) 0.2 %; Ovalocytes 1+; Polychromasia 1+
--- NOTE | 2025-04-06 10:45 | Gastrointestinal Consultation ---
Date of Consultation April 06, 2025 Assessment & Plan (1) Iron deficiency anemia: H/H is at her baseline. CT abd/pelvis without acute GI issues. Patient notes that she chronically follows with hematology for this issue and receives iron infusions regularly. She is not interested in EGD/colonoscopy at this time due to a history of cardiac arrest when she was having an EGD. I do not have these records, but I do have cardiac records showing a history of moderate to severe aortic stenosis and pulmonary records that have addressed her chronic respiratory failure. Given her history of duodenal ulceration, consider increasing her home dose of Protonix to 40 mg BID. If patient decides she would like endoscopic evaluation of her AMY, I would encourage this occur at a tertiary center as an outpatient due to her aortic stenosis, CHF, and chronic respiratory failure. Alternatives could include a VCE at [facility] or [facility] if her insurance would approve this without EGD/colonoscopy first. Supervising Physician Co-Signing Physician Notes Patient seen and examined and agree with LAWRENCE Iqbal as above Abd: Soft, NT, ND, +BS Continue current therapy and supportive care No plans for invasive GI testing at present. History of Present Illness Reason for Consultation: Heme positive stools, AMY Attending Physician: Felipe Medrano MD History of Present Illness Patient is an 79 yo female who is currently admitted to [facility] for acute CHF exac erbation and acute on chronic respiratory failure. GI has been engaged to weigh in on her iron deficiency anemia and heme positive stool. 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 She notes years of dark stools since beginning her iron supplementation. She tells me that several years ago, they attempted to do an EGD/colonoscopy outside of the [facility] system for evaluation of her anemia. She reports to me that she suffered a cardiac arrest during that procedure. She notes she was advised by her opal miner and body and fender worker to avoid these procedures moving forward if possible. She does have a history of moderate to severe aortic stenosis. She is anticoagulated on Eliquis for a history of Afib. She denies abdominal pain, hemetemesis/coffee ground emesis, hematochezia, or changes in the pattern of her chronic dark stools. She feels that her breathing is returning to baseline since being hospitalized. Of note, an EGD in 2020 indicated duodenal ulcerations. Based on her home med list, she takes Protonix 40 mg daily. The last colonoscopy I can find from [facility] is from 2015 during which time several large polyps were removed, but patient is confident that she has had another one since that time that occurred at another facility. She had a CT of her abdomen/pelvis on 04/02/25 that was unremarkable for acute GI abnormalities. Current H/H is 8.6/28.3 which does appear to be her baseline in recent years. Allergies Allergy/AdvReac Type Severity Reaction Status Date / Time No Known Allergies Allergy Verified 04/02/25 16:21 Home Medications Medication Instructions Recorded Confirmed Type multivitamin 1 tab PO QAM 04/18/21 04/02/25 History vit C 250 mg-vit E 90 mg-zinc 40 1 tab PO BID 07/21/22 04/02/25 History mg-copper 1 hs-phzuks-rpoyog capsule (PreserVision AREDS-2) magnesium oxide 400 mg (241.3 mg 400 mg PO BID #60 tabs 07/24/22 04/02/25 Rx magnesium) tablet lancets 33 gauge #200 ea 03/06/23 03/17/25 Rx insulin glargine 100 unit/mL (3 8 unit subcut HS 06/24/23 04/02/25 History mL) subcutaneous pen (Lantus Solostar U-100 Insulin) lactobacillus combination no.9 4 4,000 mmu cells PO QPM 06/24/23 04/02/25 History billion cell capsule (Adult 50 Plus Probiotic) docusate sodium 100 mg tablet 100 mg PO BID 08/21/23 04/02/25 History (Stool Softener) ferrous sulfate 325 mg (65 mg 325 mg PO 3XWK 02/08/24 04/02/25 History iron) tablet insulin aspart U-100 100 unit/mL See Rx Instructions subcut 03/04/24 04/02/25 Rx (3 mL) subcutaneous pen (Novolog .COMPLEX #30 mL FlexPen U-100 Insulin aspart) blood sugar diagnostic (OneTouch #300 ea 05/09/24 03/17/25 Rx Verio test strips) fluticasone propionate 50 1 spray intranasal BID #18.2 mL 05/24/24 04/02/25 Rx mcg/actuation nasal spray,suspension (Flonase Allergy Relief) ensifentrine 3 mg/2.5 mL 3 mg (2.5 mL) inhalation BID #150 07/18/24 04/02/25 Rx suspension for nebulization mL (Ohtuvayre) rivaroxaban 10 mg tablet (Xarelto) 10 mg PO QPM #90 tabs 08/29/24 04/02/25 Rx cyanocobalamin (vitamin B-12) 1,000 mcg PO 3XWK 10/06/24 04/02/25 History 1,000 mcg capsule pen needle, diabetic 31 gauge x #200 ea 11/21/24 03/17/25 Rx 3/16" (UltiCare Pen Needle) furosemide 20 mg tablet 20 mg PO QAM PRN edema #30 tabs 01/13/25 04/02/25 Rx ropinirole 0.5 mg tablet 1.5 mg (3 x 0.5 mg) PO HS 90 days 01/23/25 04/02/25 Rx #270 tabs metformin 1,000 mg tablet 1,000 mg PO QAM #90 tabs 02/03/25 04/02/25 Rx simvastatin 40 mg tablet 40 mg PO HS #90 tabs 02/06/25 04/02/25 Rx budesonide 160 mcg-glycopyr 9 2 inh inhalation BID #3 Inhalers 02/15/25 04/02/25 Rx mcg-formot 4.8 mcg/actuation HFA inhaler (Breztri Aerosphere) albuterol sulfate 90 mcg/actuation 2 puff inhalation Q4H PRN 02/23/25 04/02/25 Rx aerosol inhaler (Ventolin HFA) Shortness Of Breath Or Wheezing #8.5 grams ipratropium 0.5 mg-albuterol 3 mg 3 ml inhalation QID PRN shortness 02/23/25 04/02/25 Rx (2.5 mg base)/3 mL nebulization of breath or wheezing #360 mL soln amoxicillin 500 mg tablet 500 mg PO BID 30 days #60 tabs 03/08/25 04/02/25 Rx citalopram 20 mg tablet 20 mg PO DAILY 90 days #90 tabs 03/17/25 04/02/25 Rx lorazepam 0.5 mg tablet 0.25 mg (1/2 x 0.5 mg) PO TID PRN 03/17/25 04/02/25 Rx anxiety or shortness of breath #15 tabs pantoprazole 40 mg tablet,delayed 40 mg PO QAM #90 tabs 03/17/25 04/02/25 Rx release dupilumab 300 mg/2 mL subcutaneous 300 mg subcut .Q2WKS 04/02/25 04/02/25 History pen injector nystatin-triamcinolone 100,000 1 applic topical TID PRN SKIN 04/02/25 04/02/25 History unit/gram-0.1 % topical ointment IRRITATIONS sodium chloride, sodium 1 ea DAILY 04/02/25 04/02/25 History bicarb-nasal rinse squeeze bottle with packet (Neilmed Sinus Rinse Complete with packet) Patient History Medical History Nephrolithiasis Congestive heart failure Asthma-COPD overlap syndrome Acute kidney injury Severe aortic stenosis Chronic respiratory failure with hypoxia Type 2 diabetes mellitus, with long-term current use of insulin SNHL (sensorineural hearing loss) BPPV (benign paroxysmal positional vertigo) On home O2 2 LPM continuous Osteoarthritis History of DVT (deep vein thrombosis) RLE post op (approximtely 2 years ago) Taking Xarelto Insomnia Peptic ulcer disease Hx of fracture of femur Surgical History History of lithotripsy History of eye removal Right History of appendectomy History of esophagogastroduodenoscopy (EGD) EGD (11/13/20): MAC at [facility]. 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 Hx of eye surgery left H/O total hip arthroplasty left Hx of total knee arthroplasty R/L History of tonsillectomy and adenoidectomy Hx of cholecystectomy H/O: hysterectomy Family History Father Cardiovascular disease Diabetes Asthma Heart disease Brother Diabetes Cardiac disorder Mother Breast cancer Other Hypertension No family history of adverse response to anesthesia No family history of bleeding disorder Denies family history of Ovarian cancer Prostate cancer Myocardial infarction Colorectal cancer Social History Smoking Status: Never smoker Second Hand Exposure: No; Do You Dip or Chew Tobacco: No; Hx Alcohol Use: Yes Alcohol type: beer Hx Substance Use: No Preferred Language: Albanian Communication Ability: Effective Waterside Worker Required: No Beliefs That Will Affect Care: None marital status: Current Living Situation: Spouse current occupational status: retired Feels Safe at Home: Yes Diet: regular Dental Care, Regularly: No Physical Activity Frequency: Does not Exercise Seatbelt Use: always Sunscreen Use: No Assistive Devices: Oxygen - Continuous and Wheelchair Review of Systems Constitutional: no fever and no chills Respiratory: + dyspnea and + dyspnea on exertion; no cough Gastrointestinal: no abdominal pain Physical Exam Constitutional: well developed Respiratory: no respiratory distress Cardiovascular: Rate/Rhythm: regular rate Heart Sounds: + murmur Gastrointestinal (Abdomen): normal bowel sounds, soft, nontender, no hepatosplenomegaly Musculoskeletal: Head/Neck/Chest: normocephalic Psychiatric: Orientation: alert and oriented x 3 Results & Data Vital Signs (Past 12 Hours) Vital Signs Temp Pulse Pulse Resp BP Pulse Ox O2 Del Method 04/06/25 07:25 36.8 C 89 20 179/79 H 93 Nasal Cannula 04/06/25 07:19 76 04/06/25 07:05 80 16 98 Nasal Cannula 04/06/25 03:34 36.7 C 81 20 120/56 L 94 Nasal Cannula 04/06/25 01:56 77 18 96 Nasal Cannula 04/06/25 01:20 81 04/05/25 23:25 36.9 C 83 20 165/75 H 95 Nasal Cannula 04/05/25 23:21 84 19 96 O2 Flow Rate FiO2 04/06/25 07:25 3 04/06/25 07:19 04/06/25 07:05 3 04/06/25 03:34 2 04/06/25 01:56 3 04/06/25 01:20 04/05/25 23:25 2 04/05/25 23:21 40 PG Care Time/CCT Total # of Minutes Spent Total Time Spent with Patient: Total time spent is greater than 50% in coordination of care (as documented) at patient's floor/unit and/or counseling patient: Coding Level of Care Code 13359 INT INP/OBS CARE 3MIN Diagnoses Iron deficiency anemia D50.9
[2025-04-06] MEDS: FUROSEMIDE 40 MG TAB PO SCH (13:38)
--- NOTE | 2025-04-06 13:57 | Hospitalist Progress Note ---
Date of Service April 06, 2025 Assessment & Plan (1) Acute diastolic (congestive) heart failure: Plan: Patient received IV Lasix up until 04/05. Started on p.o. Lasix today. Improved Discontinued Olivares catheter (2) Acute hypoxic respiratory failure: Plan: Acute on chronic. She is now back to her baseline oxygen use. Supplemental oxygen to maintain saturation greater than 90%. I asked the nurse to titrate down O2 as tolerated (3) Iron deficiency anemia: Plan: Iron levels are low as expected. Parenteral iron replacement started today, April 04. Hemoglobin 7.0 on admission. Hemoglobin improved to 8.4 after 1 unit packed red blood cells. Hemoccult positive GI consulted GI recommended starting her on Protonix 40 mg twice daily due to history of duodenal ulcer Patient has a history of cardiac arrest when she was having an EGD. GI plans on no endoscopic evaluation inpatient. The patient declines it to. If she were to decide on EGD/will colonoscopy, this should be done at a tertiary center per GI note. (4) Acute right flank pain: Plan: No evidence of zoster outbreak. Symptomatic treatment. Resolved (5) Epigastric abdominal pain: Plan: Suspected underlying gastritis. Resolved with Protonix and Carafate therapy (6) COPD (chronic obstructive pulmonary disease): Plan: Stable. Nebulizer treatments (7) High-grade atrioventricular block: Plan: Status post pacemaker implantation. Telemetry (8) Paroxysmal atrial fibrillation: Plan: Continue rate control measures. Discontinued Xarelto due to iron deficiency anemia from suspected chronic GI blood loss. Telemetry (9) Type 2 diabetes mellitus: Plan: Lantus and metformin currently on hold. Sliding scale coverage for now. Fasting glucose this morning ,April 04, was 109 Plan OT and PT recommends discharge to home. Will discharge to home tomorrow 04/07 Admission and Anticipated Discharge Date Admission Date: April 02, 2025 Subjective Patient feels well. Denies chest pain shortness of breath.. She says that she feels short of breath after using the bathroom but this is usual for her. Review of Systems Review of Systems: All systems reviewed & are unremarkable except as noted in Subjective Physical Exam Physical Exam: General: Awake, conversant Heart: S1, S2/regular rate and rhythm, no murmur rubs or gallops Lungs: Clear to auscultation bilaterally. Normal effort Abdomen: Soft/nontender/nondistended. No hepatosplenomegaly Extremities: No clubbing/cyanosis. No edema Behavior: Appropriate, cooperative Results & Data Results & Data Vital Signs (Past 12 Hours) Vital Signs Temp Pulse Pulse Resp BP Pulse Ox O2 Del Method 04/06/25 13:24 85 18 95 Nasal Cannula 04/06/25 11:42 37.1 C 81 20 163/69 H 98 Nasal Cannula 04/06/25 11:21 82 18 96 Nasal Cannula 04/06/25 09:40 Nasal Cannula 04/06/25 07:25 36.8 C 89 20 179/79 H 93 Nasal Cannula 04/06/25 07:19 76 04/06/25 07:05 80 16 98 Nasal Cannula 04/06/25 03:34 36.7 C 81 20 120/56 L 94 Nasal Cannula 04/06/25 01:56 77 18 96 Nasal Cannula O2 Flow Rate 04/06/25 13:24 3 04/06/25 11:42 3 04/06/25 11:21 2 04/06/25 09:40 2.5 04/06/25 07:25 3 04/06/25 07:19 04/06/25 07:05 3 04/06/25 03:34 2 04/06/25 01:56 3 Laboratory Results Abnormal lab results 04/05/25 04/05/25 04/05/25 Range/Units 17:04 20:13 20:16 RBC (4.20-5.40) M/uL Hgb (12.0-16.0) g/dl Hct (37.0-47.0) % MCHC (32.0-36.0) g/dL RDW Std Deviation (36.4-46.3) fL RDW Coeff of Yevgeniy (11.5-14.5) % Lymph # (Auto) (1.20-3.40) K/uL Chloride (98-107) mmol/L Carbon Dioxide (21-32) mmol/L BUN/Creatinine Ratio (10-20) Glucose (70-99(Fasting)) mg/dl POC Glucose 119 H 59 L* 61 L* (70-99) mg/dl Calcium (8.6-10.3) mg/dl 04/05/25 04/06/25 04/06/25 Range/Units 20:40 08:18 09:02 RBC 3.17 L (4.20-5.40) M/uL Hgb 8.6 L (12.0-16.0) g/dl Hct 28.3 L (37.0-47.0) % MCHC 30.4 L (32.0-36.0) g/dL RDW Std Deviation 46.8 H (36.4-46.3) fL RDW Coeff of Yevgeniy 14.6 H (11.5-14.5) % Lymph # (Auto) 1.01 L (1.20-3.40) K/uL Chloride 94 L (98-107) mmol/L Carbon Dioxide 42 H* (21-32) mmol/L BUN/Creatinine Ratio 20.6 H (10-20) Glucose 157 H (70-99(Fasting)) mg/dl POC Glucose 102 H 134 H (70-99) mg/dl Calcium 8.4 L (8.6-10.3) mg/dl PG Care Time/CCT Total # of Minutes Spent Total Time Spent with Patient: Total time spent is greater than 50% in coordination of care (as documented) at patient's floor/unit and/or counseling patient: Coding Level of Care Code 12004 SUB INP/OBS CARE 2/35MIN Diagnoses Acute diastolic (congestive) heart failure I50.31 Acute hypoxic respiratory failure J96.01 Iron deficiency anemia D50.9 Acute right flank pain R10.9 Epigastric abdominal pain R10.13 Chronic obstructive pulmonary disease with acute exacerbation J44.1 COPD type: COPD with acute exacerbation High-grade atrioventricular block I44.39 Paroxysmal atrial fibrillation I48.0 Type 2 diabetes mellitus E11.9 (6) COPD (chronic obstructive pulmonary disease) COPD type: COPD with acute exacerbation Qualified Code(s): J44.1 - Chronic obstructive pulmonary disease with (acute) exacerbation
[2025-04-07 03:41] VITALS: TEMP 98.1
[2025-04-07 08:02] VITALS: BP 129/57; RESP 18; O2SAT 94
[2025-04-07 09:03] LABS: Anion Gap 3.0 (3-11); Blood Urea Nitrogen 20.0 mg/dl (6-23); Calcium 8.1 mg/dl (8.6-10.3); Carbon Dioxide 42.0 mmol/L (21-32); Chloride 96.0 mmol/L (98-107); Creatinine Clr Calc Pharmacy 55.4 ml/min; Glucose 120.0 mg/dl (70-99(Fasting)); Potassium 4.0 mmol/L (3.5-5.1); Sodium 141.0 mmol/L (136-145)
--- NOTE | 2025-04-07 10:26 | Discharge Summary ---
Date of Service April 07, 2025 Admission HPI Per Admitting Provider 79-year-old female with right flank pain and epigastric pain for several days if not weeks that she does not feel has been evaluated as an outpatient and she came to the ER out of frustration. She was found to have hemoglobin level of 7.0 but she denies overt blood loss or hematochezia. She has chronically black stool from her oral iron pills. She received 1 unit packed red blood cells in the ED. Fecal occult blood testing and iron levels are pending. Xarelto will be discontinued as a likely source is chronic GI blood loss from the systemic anticoagulation. She denies palpitations or syncope. is at the bedside. Principal Diagnosis Acute diastolic congestive heart failure Acute on chronic hypoxic respiratory failure Iron deficiency anemia. Patient declined GI workup Epigastric abdominal pain possibly related to GI ulcer. Resolved with Protonix Discharge Exam General: Awake, conversant Heart: S1, S2/regular rate and rhythm, no murmur rubs or gallops Lungs: Clear to auscultation bilaterally. Normal effort Abdomen: Soft/nontender/nondistended. No hepatosplenomegaly Extremities: No clubbing/cyanosis. No edema Behavior: Appropriate, cooperative Discharge Data Allergies Allergy/AdvReac Type Severity Reaction Status Date / Time No Known Allergies Allergy Verified 04/02/25 16:21 Consultations 04/02/25 16:33 ED Decision to Admit Stat 04/06/25 08:44 Consult Gastroenterology Routine Ordered Studies Abdomen/Pelvis CT 04/02/25 13:31 EXAMINATION: CT of the abdomen and pelvis performed after the administration of IV contrast TECHNIQUE: Helical CT images from the lung bases through the symphysis pubis were obtained with contrast. Coronal and sagittal reformatted images were generated at a workstation for further assessment. Dose reduction techniques were achieved by using automatic exposure control and/or adjustment of mA and/or kV according to patient size and/or use of iterative reconstruction technique. COMPARISON: 12/26/2024 HISTORY: Abdominal pain FINDINGS: Lung bases: Small bilateral pleural effusions are new. Few atelectatic bands are noted in the right lung base. A calcified granuloma is noted in the left lung base. Cardiomegaly noted. Pacemaker leads are noted in situ. Liver, biliary system: Liver appears normal in size with smooth margins and normal attenuation values. The intra and extrahepatic bile ducts appear unremarkable. Common bile duct appears unremarkable. No mass or abnormal post contrast enhancement seen. The portal vein is patent. Gallbladder fossa: Post cholecystectomy status. No gross pathology or fluid seen. Spleen: The spleen appears normal in size with homogeneous parenchyma. Pancreas: The pancreas appears normal in size with normal contours and homogenous parenchyma. The pancreatic duct appears unremarkable. Adrenals: Both adrenal glands appear unremarkable. Kidneys, ureter, bladder: A nonobstructing curvilinear 7 mm stone is again seen at the inferior right kidney. Very tiny, few punctate additional stones is seen in both kidneys. Simple cysts. No hydronephrosis. No obstructing ureteral stone. Distal esophagus and stomach: Visualized distal esophagus and stomach appears unremarkable. Bowel: Small and large intestine appears unremarkable. No dilatation or stenosis in the visualized bowel. Mild fecal loading of large bowel. Vascular: Imaged portions of major blood vessels show atherosclerotic disease. No aneurysmal dilation or dissection noted. Pelvis: No evidence of enlarged lymph nodes, ascites or free air. Multiple phleboliths are noted in the pelvis. Pelvic viscera: Poorly visualized secondary to metallic streak artifacts from the left hip arthroplasty. Musculoskeletal: Images bones and spine show mild to moderate degenerative changes. No aggressive-appearing osseous lesions noted. IMPRESSION: Unremarkable appearance of the pancreas. Nonobstructing renal calculi. No hydronephrosis or ureteral stone. New small pleural effusions. Cardiomegaly. Electronically signed by Hank Doshi 04-02-2025 3:55 PM Chest X-Ray 04/02/25 16:48 Chest radiograph, one view History: GI bleed Comparison: 01/10/2025 Findings: Single AP view of the chest performed. No focal consolidation or pleural effusion. There is likely some mild right basilar atelectasis. No pneumothorax. The cardiomediastinal silhouette is enlarged. Left chest wall dual-lead AICD. Enlarged pulmonary vascularity. No evidence for lymphadenopathy. No visualized bony or soft tissue abnormality. Impression: No acute process Electronically signed by Hank Doshi 04-02-2025 5:21 PM Chest X-Ray 04/03/25 03:08 EXAM: XR chest 1V portable CLINICAL HISTORY: SOB TECHNIQUE: Radiograph of chest was acquired. 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 Blunted bilateral costophrenic angles, likely secondary to pleural effusion. Two small pulmonary nodules in right lower lobe. Decreased right lower zone hazy opacity. The cardiomediastinal silhouette appears enlarged. No acute osseous abnormality. Implantable cardiac device with leads in situ. IMPRESSION: 1. Decreased right lower zone hazy opacity. 2. Bilateral pulmonary hilar congestion and prominent bronchovascular markings. (Stable) 3. Blunted bilateral costophrenic angles, likely secondary to pleural effusion. (Stable) 4. Two small pulmonary nodules in right lower lobe. (Stable) Electronically signed by Joseph Guzman 04-03-2025 03:52 AM Chest X-Ray 04/04/25 08:00 EXAM: XR chest 1V portable CLINICAL HISTORY: CHF, hypoxia TECHNIQUE: An X-ray image of the chest is obtained in AP projection. COMPARISON: CR 04/03/2025. FINDINGS: Pulmonary Parenchyma: Bilateral pulmonary hilar congestion and prominent bronchovascular markings. Blunted bilateral costophrenic angles, likely secondary to small pleural effusion. Two small pulmonary nodules in the right lower lobe. Stable right lower zone hazy opacity. Heart and Mediastinum: The cardiomediastinal silhouette appears enlarged. S/p cardiac pacemaker with leads in place. No mediastinal widening or masses. No hilar or mediastinal lymphadenopathy. Bony Thorax: Bony thorax appears intact without fractures or deformities. Soft Tissues: Soft tissues overlying the chest wall are unremarkable. IMPRESSION: 1. Bilateral pulmonary hilar congestion and prominent bronchovascular markings. Unchanged. 2. Blunted bilateral costophrenic angles, likely secondary to small pleural effusion. Unchanged. 3. Two small pulmonary nodules in the right lower lobe. Unchanged. 4. Unchanged right lower zone hazy opacity. 5. Compared to CR 04/03/2025. No interval change. Electronically signed by Boyd Ramos 04-04-2025 08:03 AM 04/02/25 13:31 CT abd pelvis IV con only Stat Hospital Course (1) Acute diastolic (congestive) heart failure: Patient received IV Lasix up until 04/05. Switched to p.o. Lasix on 04/06 Improved Discontinued Olivares catheter Plan to discharge on 40 mg of p.o. Lasix which is higher than her usual home dose of 20 mg (2) Acute hypoxic respiratory failure: Acute on chronic. She is now back to her baseline oxygen use. Supplemental oxygen to maintain saturation greater than 90%. (3) Iron deficiency anemia: Iron levels are low as expected. Parenteral iron replacement administered during the hospital stay. Hemoglobin 7.0 on admission. Hemoglobin improved to 8.4 after 1 unit packed red blood cells. Hemoccult positive GI consulted GI recommended starting her on Protonix 40 mg twice daily due to history of duodenal ulcer Patient has a history of cardiac arrest when she was having an EGD. GI plans on no endoscopic evaluation inpatient. The patient declines it too. If she were to decide on EGD/colonoscopy, this should be done at a tertiary center per GI note. Discontinued Xarelto due to suspected GI losses (4) Acute right flank pain: No evidence of zoster outbreak. Symptomatic treatment. Resolved (5) Epigastric abdominal pain: Suspected underlying gastritis. Resolved with Protonix and Carafate therapy (6) COPD (chronic obstructive pulmonary disease): Stable. Nebulizer treatments (7) High-grade atrioventricular block: Status post pacemaker implantation. Telemetry (8) Paroxysmal atrial fibrillation: Continue rate control measures. Discontinued Xarelto due to iron deficiency anemia from suspected chronic GI blood loss. Telemetry (9) Type 2 diabetes mellitus: Resume home regimen Plan OT and PT recommends discharge to home. Discharge to home today Total Time Total Time Spent Total Time Spent (In Minutes): 35 Discharge Plan Discharge Items Patient Disposition: Home - Self-Care Reason For Visit: EGIGASTRIC AND FLANK PAIN, ANEMIA Discharge Diagnosis: Acute diastolic congestive heart failure Acute on chronic hypoxic respiratory failure Iron deficiency anemia. Patient declined GI workup Epigastric abdominal pain possibly related to GI ulcer. Resolved with Protonix Condition on Discharge: Fair Activity: Resume your previous activity Non-emergency contact: Primary Care Provider Call non-emergency contact if: you have any medication questions and your symptoms worsen Follow-up/Referrals: Felicia Costa MD [Primary Care Provider] - 04/17/25 1:00 pm (Hospital follow up on Thursday, April 17 at 1 pm.) Diet: Carb Consistent or DM2 and Heart Healthy Addtl Attending Provider Instructions: Advised to follow-up with PCP in 1 week Advised to note that you are being discharged on a higher dose of Lasix Advised to note that Xarelto has been discontinued because of concerns of GI bleed Pending Studies at Discharge: No Stand-Alone Forms: My [facility] [employer] [employer] Medications and DC Order Prescriptions: New furosemide 40 mg Tablet 40 mg PO QAM 30 Days Qty: 30 0RF pantoprazole 40 mg Tablet,Delayed Release (Dr/Ec) 40 mg PO BID 30 Days Qty: 60 0RF Continued ferrous sulfate 325 mg (65 mg iron) tablet 325 mg PO 3XWK Rx Instructions: M/W/F with food (DME) lancets 33 gauge misc See Rx Instructions .Route Qty: 200 3RF Rx Instructions: OneTouch Delica - Test blood sugars twice a day insulin aspart U-100 [Novolog FlexPen U-100 Insulin] 100 unit/mL (3 mL) insul in pen See Rx Instructions subcut .COMPLEX MDD 20 units Qty: 30 3RF Hold Instructions: hold for now Rx Instructions: subcutaneously, three times a day with meals, and sliding scale for high blood sugar (DME) OneTouch Verio test strips Strip See Rx Instructions .ROUTE .MEDSUPPLY Qty: 300 3RF Rx Instructions: test blood sugar TID (DME) pen needle, diabetic [UltiCare Pen Needle] 31 gauge x 3/16" needle See Rx Instructions .Route Qty: 200 11RF Rx Instructions: Use 4 per day ropinirole 0.5 mg tablet 1.5 mg PO HS 90 Days Qty: 270 3RF Rx Instructions: TAKE 3 TABLETS (1.5 MG) AT BEDTIME metformin 1,000 mg tablet 1,000 mg PO QAM Qty: 90 3RF Rx Instructions: TAKE 1 TABLET BY MOUTH EVERY MORNING simvastatin 40 mg tablet 40 mg PO HS Qty: 90 3RF Rx Instructions: TAKE 1 TABLET AT BEDTIME amoxicillin 500 mg tablet 500 mg PO BID 30 Days Qty: 60 3RF docusate sodium [Stool Softener] 100 mg tablet 100 mg PO BID multivitamin Tablet 1 tab PO QAM cyanocobalamin (vitamin B-12) 1,000 mcg capsule 1,000 mcg PO 3XWK Rx Instructions: Thursday, Thursday Lantus Solostar U-100 Insulin 100 unit/mL (3 mL) insulin pen 8 unit SUBCUT HS Hold Instructions: hold for now Adult 50 Plus Probiotic 4 billion cell capsule 4,000 mmu cells PO QPM Rx Instructions: administer with a meal Breztri Aerosphere 160-9-4.8 mcg/actuation HFA aerosol inhaler 2 inh inhalation BID Qty: 3 3RF fluticasone propionate [Flonase Allergy Relief] 50 mcg/actuation spray,suspension 1 spray intranasal BID Qty: 18.2 2RF Rx Instructions: administer into each nostril Ohtuvayre 3 mg/2.5 mL suspension for nebulization 3 mg inhalation BID Qty: 150 11RF albuterol sulfate [Ventolin HFA] 90 mcg/actuation HFA aerosol inhaler 2 puff INHALATION Q4H PRN (Reason: Shortness Of Breath Or Wheezing) Qty: 8.5 3RF ipratropium-albuterol 0.5 mg-3 mg(2.5 mg base)/3 mL solution for nebulization 3 ml inhalation QID PRN (Reason: shortness of breath or wheezing) Qty: 360 12RF citalopram 20 mg tablet 20 mg PO DAILY 90 Days Qty: 90 2RF lorazepam 0.5 mg tablet 0.25 mg PO TID PRN (Reason: anxiety or shortness of breath) Qty: 15 0RF PreserVision AREDS-2 250-90-40-1 mg Capsule 1 tab PO BID magnesium oxide 400 mg (241.3 mg magnesium) Tablet 400 mg PO BID Qty: 60 0RF Rx Instructions: OTC nystatin-triamcinolone 100,000-0.1 unit/gram-% ointment 1 applic topical TID PRN (Reason: SKIN IRRITATIONS) Rx Instructions: apply sparingly to affected areas Neilmed Sinus Rinse Complete Packet With Rinse Device 1 ea DAILY Rx Instructions: use daily; dupilumab 300 mg/2 mL pen injector 300 mg subcut .Q2WKS Rx Instructions: EVERY OTHER THURSDAY, DUE 04/03/25. Inject 600mg SQ on Day 1, then inject 300mg SQ every 2 weeks; APPROVED GOOD 09/01/24-05/01/25 [id number] Discontinued Xarelto 10 mg tablet 10 mg PO QPM Qty: 90 1RF Rx Instructions: Per [facility] with evening meal pantoprazole 40 mg tablet,delayed release (DR/EC) 40 mg PO QAM Qty: 90 3RF Rx Instructions: TAKE 1 TABLET DAILY furosemide 20 mg tablet 20 mg PO QAM PRN (Reason: edema) Qty: 30 0RF Rx Instructions: take as needed for leg/foot swelling and also take if any weight gain of more than 3 pounds over 1-2 days Discharge Orders: Discharge Order (Routine); Ordered 04/07/25 Ordered By: Felipe Medrano Admission Data Admit Date/Time: 04/02/25 17:30 Attending Provider: Felipe Medrano Admit Provider: Gabe Mazariegos Primary Care Provider: Felicia Costa Other Providers: Luz Elena Nguyen Dustin G. Other Interventions: Discharge Summary Assessment (RN) Last Done: 04/07/25 10:38
[2025-04-07 10:39] VITALS: PULSE 77
== END 2025-04-07 11:29 | disposition home or self-care (01) | DRG 811 ==
LOC: ED 12:54 → SUATTDRO 17:30 → 4W 17:30 → 2N 04-05 18:46

== ENCOUNTER 2025-05-21 13:37 | Inpatient (IN) ==
[2025-05-21 13:56] LABS: Base Excess VBG 4.4 mEq/L; HCO3 VBG 36 mmol/L; Oxygen Saturation VBG 84.0 %; PCO2 VBG 94 mmHg (38-50); PO2 VBG 53 mmHg; pH VBG 7.19 (7.36-7.41)
[2025-05-21] MEDS: ALBUT/IPRATROP 3MG/0.5MG NEB 3 ML VIAL INH STA (13:56)
[2025-05-21 14:00] LABS: Hematocrit (blood only) 31.7 % (37.0-47.0); Hemoglobin 8.9 g/dl (12.0-16.0); Immature Granulocytes # (auto) 0.08 K/uL (0.01-0.20); Immature Granulocytes % (auto) 0.7 %; Mean Corpuscular Hemoglobin 26.5 pg (25.0-34.0); Mean Corpuscular Volume 94.3 fL (80.0-100.0); Platelet Count 288 K/uL (130-400); RDW Standard Deviation 54.5 fL (36.4-46.3); Red Blood Count 3.36 M/uL (4.20-5.40); White Blood Count 11.68 K/ul (4.8-10.8)
--- NOTE | 2025-05-21 14:14 | Emergency Department Note ---
Impression & Plan Acute and chronic respiratory failure with hypercapnia, CHF (congestive heart failure), Asthma-COPD overlap syndrome ED Provider Note Provider: Erickson Nick MD CHIEF COMPLAINT: Breathing issues HISTORY OF PRESENT ILLNESS: Patient is a 79-year-old history of type 2 diabetes, GI bleed, COPD/asthma overlap, A-fib, CHF, and hypertension on chronic oxygen 2 and half to 3 L presenting here today the ambulance from home. Significant shortness of breath since this morning. Received 100.5 mg a Medrol DuoNeb and route with maybe little improvement. Patient states he is feeling weak and fatigued may be a little confused. No falls reported. later arrives. No longer on blood thinners due to concerns for anemia and GI bleed issues. Does receive iron infusions. Denies significant leg swelling and does not feel that this is like her CHF. No other sick contacts reported or fever. PAST MEDICAL HISTORY: As noted above MEDICATIONS: Reviewed no medication and includes home oxygen SOCIAL HISTORY: lives at home, lifelong non-smoker PHYSICAL EXAM: GENERAL: alert and oriented in no acute distress on stretcher Head: normocephalic and atraumatic EYES: No injection, discharge or icterus. NECK: Trachea midline. ENT: Mucous membranes pink and moist. LUNGS: Airway patent. Pursed lip breathing and mild tachypnea. Significant wheeze prickly expiratory HEART: Regular rate and rhythm. No chest wall tenderness ABDOMEN: Soft and non-tender, without guarding or rebound. SKIN: Acyanotic, warm, dry, without rashes EXTREMITIES: Without tenderness with trace lower extremity edema. No significant erythema or weeping. NEUROLOGICAL: No focal deficits. No aphasia. No facial droop or slurred speech. EK bpm atrial fibrillation frequently ventricular paced with a intraventricular conduction delay without clear acute ST segment elevation and a QTc of 43 is noted. CONTINUOUS CARDIAC MONITORING: was ordered and showed a heart rate of 70s to 90s bpm in ventricular paced rhythm/A-fib Patient's laboratory studies and imaging reviewed. Differential includes Reactive airway disease, pneumonia, pneumothorax, COPD, CHF, infections, cardiac ischemia, pulmonary embolism, musculoskeletal, gastrointestinal, as well as other pathologies. IMPRESSION/MEDICAL DECISION MAKING: Patient does not seem significant fluid overloaded but x-ray obtained as well as BNP to exclude signs of fluid overload. Denies significant infectious symptoms but respiratory viral panel and x-ray obtained to exclude pneumonia or viral infection. VBG sent and is hypercarbic here likely contributor fatigue. Significantly wheezy and seems much more like a reactive airway process. I received 105 mg of steroid. Given additional DuoNeb here. Blood work with stable anemia. Significant leukocytosis 11.68 is noted. No significant electrolyte abnormality or evidence of new renal dysfunction. Will cover empirically with a dose of azithromycin and cefepime given her significant respiratory symptoms, recent hospitalization, and leukocytosis. Chest x-ray without obvious focal pneumonia. Compared to previous x-ray per my interpretation less fluid overload April 04. BNP is somewhat elevated 873 and given a 20 mg IV dose of Lasix. Troponin is stable. Respiratory viral panel returns negative. Given her significant wheeze I have lower suspicion for acute PE. Still with some tachypnea but improved work of breathing with BiPAP. Discussed with patient plan to stay in the hospital. She was agreeable. Hospitalist team was consulted. DIAGNOSIS: Acute asthma/COPD exacerbation, acute on chronic hypoxic hypercapnic respiratory failure DISPOSITION: Hospitalist will evaluate Patient was agreeable with this plan. Critical Care I have personally spent 32 minutes of critical care time in the direct management of this patient. This includes bedside care, interpretation of diagnostic studies, and testing, discussion with consultants, patient, and family members, and other required patient management activities. These 32 minutes is in excess of all separately billable procedures. Past Med/Surg History Problem List (Updated 05/21/25 @ 14:40 by Erickson Nick M.D.) Asthma-COPD overlap syndrome (Acute) CHF (congestive heart failure) (Acute) Acute and chronic respiratory failure with hypercapnia (Acute) Acute hypoxic respiratory failure Acute diastolic (congestive) heart failure Type 2 diabetes mellitus Iron deficiency anemia Acute hypernatremia (Acute) Symptomatic anemia (Acute) Acute right flank pain (Acute) Epigastric abdominal pain (Acute) UGIB (upper gastrointestinal bleed) (Acute) Microscopic hematuria Aortic stenosis Abnormal chest CT Systolic murmur COPD (chronic obstructive pulmonary disease) Selective deficiency of IgG (Chronic) Pernicious anemia (Chronic) Mediastinal adenopathy (Chronic) Iron deficiency anemia secondary to inadequate dietary iron intake High-grade 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 Infected 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 in 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 (Chronic) Paroxysmal atrial fibrillation Osteoporosis Diabetic peripheral 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) Restless leg syndrome (Chronic) Vitamin D deficiency Obstructive sleep apnea (Chronic) Refuses device per records Multiple pulmonary nodules (Chronic) HTN (hypertension) (Chronic) Esophageal reflux (Chronic) Dyslipidemia (Chronic) Medical History Nephrolithiasis Congestive heart failure Asthma-COPD overlap syndrome Acute kidney injury Severe aortic stenosis Chronic respiratory failure with hypoxia Type 2 diabetes mellitus, with long-term current use of insulin SNHL (sensorineural hearing loss) BPPV (benign paroxysmal positional vertigo) On home O2 Osteoarthritis History of DVT (deep vein thrombosis) Insomnia Peptic ulcer disease Hx of fracture of femur Surgical History History of lithotripsy History of eye removal History of appendectomy History of esophagogastroduodenoscopy (EGD) History of colonoscopy History of open reduction and internal fixation (ORIF) procedure History of tooth extraction History of removal of skin mole History of carpal tunnel release of both wrists Hx of colonoscopy History of bronchoscopy Hx of cataract extraction Hx of eye surgery H/O total hip arthroplasty Hx of total knee arthroplasty History of tonsillectomy and adenoidectomy Hx of cholecystectomy H/O: hysterectomy Family History Father Cardiovascular disease Diabetes Asthma Heart disease Brother Diabetes Cardiac disorder Mother Breast cancer Other Hypertension No family history of adverse response to anesthesia No family history of bleeding disorder Denies family history of Ovarian cancer Prostate cancer Myocardial infarction Colorectal cancer Social History Smoking Status: Never smoker Second Hand Exposure: No; Do You Dip or Chew Tobacco: No; Hx Alcohol Use: Yes Alcohol type: beer Hx Substance Use: No Preferred Language: Tongan 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 Required: No Beliefs That Will Affect Care: None marital status: Current Living Situation: Spouse current occupational status: retired Feels Safe at Home: Yes Diet: regular Dental Care, Regularly: No Physical Activity Frequency: Does not Exercise Seatbelt Use: always Sunscreen Use: No Assistive Devices: Oxygen - Continuous and Wheelchair Allergies Allergies Allergy/AdvReac Type Severity Reaction Status Date / Time No Known Allergies Allergy Verified 05/21/25 14:50 Home Meds Home Medications Medication Instructions Recorded Confirmed multivitamin 1 tab PO QAM 04/18/21 05/21/25 vit C 250 mg-vit E 90 mg-zinc 40 1 tab PO BID 07/21/22 05/21/25 mg-copper 1 [id number] capsule (PreserVision AREDS-2) insulin glargine 100 unit/mL (3 8 unit subcut HS 06/24/23 05/21/25 mL) subcutaneous pen (Lantus Solostar U-100 Insulin) lactobacillus combination no.9 4 4,000 mmu cells PO QPM 06/24/23 05/21/25 billion cell capsule (Adult 50 Plus Probiotic) docusate sodium 100 mg tablet 100 mg PO BID 08/21/23 05/21/25 (Stool Softener) ferrous sulfate 325 mg (65 mg 325 mg PO 3XWK 02/08/24 05/21/25 iron) tablet cyanocobalamin (vitamin B-12) 1,000 mcg PO 3XWK 10/06/24 05/21/25 1,000 mcg capsule nystatin-triamcinolone 100,000 1 applic topical TID PRN SKIN 04/02/25 05/21/25 unit/gram-0.1 % topical ointment IRRITATIONS sodium chloride, sodium 1 ea DAILY 04/02/25 05/21/25 bicarb-nasal rinse squeeze bottle with packet (Neilmed Sinus Rinse Complete with packet) dupilumab 300 mg/2 mL subcutaneous 300 mg subcut .COMPLEX 04/28/25 05/21/25 pen injector cholecalciferol (vitamin D3) 75 75 mcg PO DAILY 05/15/25 05/21/25 mcg (3,000 unit) tablet Previous Rx's Medication Instructions Recorded magnesium oxide 400 mg (241.3 mg 400 mg PO BID #60 tabs 07/24/22 magnesium) tablet lancets 33 gauge #200 ea 03/06/23 insulin aspart U-100 100 unit/mL See Rx Instructions subcut 03/04/24 (3 mL) subcutaneous pen (Novolog .COMPLEX #30 mL FlexPen U-100 Insulin aspart) blood sugar diagnostic (OneTouch #300 ea 05/09/24 Verio test strips) fluticasone propionate 50 1 spray intranasal BID #18.2 mL 05/24/24 mcg/actuation nasal spray,suspension (Flonase Allergy Relief) ensifentrine 3 mg/2.5 mL 3 mg (2.5 mL) inhalation BID #150 07/18/24 suspension for nebulization mL (Ohtuvayre) pen needle, diabetic 31 gauge x #200 ea 11/21/24 3/16" (UltiCare Pen Needle) ropinirole 0.5 mg tablet 1.5 mg (3 x 0.5 mg) PO HS 90 days 01/23/25 #270 tabs metformin 1,000 mg tablet 1,000 mg PO QAM #90 tabs 02/03/25 simvastatin 40 mg tablet 40 mg PO HS #90 tabs 02/06/25 budesonide 160 mcg-glycopyr 9 2 inh inhalation BID #3 Inhalers 02/15/25 mcg-formot 4.8 mcg/actuation HFA inhaler (Breztri Aerosphere) ipratropium 0.5 mg-albuterol 3 mg 3 ml inhalation QID PRN shortness 02/23/25 (2.5 mg base)/3 mL nebulization of breath or wheezing #360 mL soln amoxicillin 500 mg tablet 500 mg PO BID 30 days #60 tabs 03/08/25 citalopram 20 mg tablet 20 mg PO DAILY 90 days #90 tabs 03/17/25 furosemide 40 mg tablet 40 mg PO QAM 1 month #90 tabs 04/17/25 pantoprazole 40 mg tablet,delayed 40 mg PO QAM #90 tabs 04/17/25 release potassium chloride 20 mEq 20 meq PO DAILY #90 tabs 04/17/25 tablet,extended release cholecalciferol (vitamin D3) 50 50 mcg PO DAILY #30 caps 05/02/25 mcg (2,000 unit) capsule albuterol sulfate 90 mcg/actuation 2 puff inhalation Q4H PRN 05/15/25 aerosol inhaler (Ventolin HFA) Shortness Of Breath Or Wheezing #3 inhalations lorazepam 0.5 mg tablet 0.25 mg (1/2 x 0.5 mg) PO TID PRN 05/16/25 anxiety or shortness of breath #15 tabs Results & Data (ED) Vital Signs Vital Signs - 24 hr 05/21/25 13:27 05/21/25 13:34 05/21/25 13:34 Temperature 36.7 C Temperature Source Oral Pulse Rate 81 Pulse Rate [Apical] Respiratory Rate 16 18 Respiratory Effort / Characteristics Respiratory Depth Respiratory Pattern Blood Pressure 170/81 H Blood Pressure Mean 110 Pulse Oximetry 97 Oxygen Delivery Method Nasal Cannula Room Air Oxygen Flow Rate 3 Fraction of Inspired Oxygen Sepsis Recent Fever Within 48 Hours No Sepsis New/Unexplained Change in Mental Status N/A Sepsis Action Taken by Nursing No Action Required 05/21/25 13:47 05/21/25 14:00 05/21/25 14:05 Temperature Temperature Source Pulse Rate 75 Pulse Rate [Apical] 80 Respiratory Rate 21 20 Respiratory Effort / Characteristics Non-Labored Spontaneous Non-Labored Spontaneous Respiratory Depth Normal Respiratory Pattern Regular Blood Pressure Blood Pressure Mean Pulse Oximetry 97 96 96 Oxygen Delivery Method Nasal Cannula BiPAP Oxygen Flow Rate 3 Fraction of Inspired Oxygen 30 30 Sepsis Recent Fever Within 48 Hours Sepsis New/Unexplained Change in Mental Status Sepsis Action Taken by Nursing Laboratory Data 05/21/25 13:48 05/21/25 13:48 Lab Results 05/21/25 Range/Units 13:48 WBC 11.68 H (4.8-10.8) K/ul RBC 3.36 L (4.20-5.40) M/uL Hgb 8.9 L (12.0-16.0) g/dl Hct 31.7 L (37.0-47.0) % MCV 94.3 (80.0-100.0) fL MCH 26.5 (25.0-34.0) pg MCHC 28.1 L (32.0-36.0) g/dL RDW Std Deviation 54.5 H (36.4-46.3) fL RDW Coeff of Yevgeniy 16.1 H (11.5-14.5) % Plt Count 288 (130-400) K/uL MPV 11.9 (9.4-12.4) fL Immature Gran % (Auto) 0.7 % Neut % (Auto) 72.6 % Lymph % (Auto) 17.3 % [place] % (Auto) 5.7 % Eos % (Auto) 2.8 % Baso % (Auto) 0.9 % Neut # (Auto) 8.48 H (1.40-6.50) K/uL Lymph # (Auto) 2.02 (1.20-3.40) K/uL [place] # (Auto) 0.67 H (0.11-0.59) K/uL Eos # (Auto) 0.33 (0.00-0.50) K/uL Baso # (Auto) 0.10 (0.00-0.20) K/uL Immature Gran # (Auto) 0.08 (0.01-0.20) K/uL PT 10.4 (9.0-12.0) Seconds INR 1.0 (0.9-1.1) VBG pH 7.19 L (7.36-7.41) VBG pCO2 94 H (38-50) mmHg VBG pO2 53 mmHg VBG HCO3 36 mmol/L VBG O2 Saturation 84.0 % VBG Base Excess 4.4 mEq/L Sodium 142 (136-145) mmol/L Potassium 4.8 (3.5-5.1) mmol/L Chloride 101 (98-107) mmol/L Carbon Dioxide 36 H (21-32) mmol/L Anion Gap 5 (3-11) BUN 21 (6-23) mg/dl Creatinine 1.07 (0.6-1.2) mg/dl Est Cr Clr Drug Dosing 47.2 ml/min eGFR 52.18 BUN/Creatinine Ratio 19.6 (10-20) Glucose 200 H (70-99(Fasting)) mg/dl Calcium 9.7 (8.6-10.3) mg/dl Magnesium 1.9 (1.7-2.4) mg/dl Total Bilirubin 0.4 (0.2-1.0) mg/dl AST 17 (13-39) U/L ALT 10 (7-52) U/L Alkaline Phosphatase 57 (34-104) U/L Troponin I High Sens 26.0 H (0-14) pg/ml B-Natriuretic Peptide 873 H (0-100) pg/ml Total Protein 6.9 (6.0-8.3) gm/dl Albumin 4.0 (3.4-5.0) gm/dl Globulin 2.9 (2.5-4.0) gm/dl Albumin/Globulin Ratio 1.4 (0.9-2) Adenovirus (PCR) Not Detected (NotDetected) B. pertussis DNA (PCR) Not Detected (NotDetected) B.parapertussis DNA PCR Not Detected (NotDetected) C. pneumoniae DNA (PCR) Not Detected (NotDetected) Coronavirus OC43 (PCR) Not Detected (NotDetected) Coronavirus HKU1 (PCR) Not Detected (NotDetected) Coronavirus 229E (PCR) Not Detected (NotDetected) SARS-CoV-2 (PCR) Not Detected (NotDetected) Coronavirus NL63 (PCR) Not Detected (NotDetected) Human Metapneumovir PCR Not Detected (NotDetected) Influenza Type A (PCR) Not Detected (NotDetected) Influenza Type B (PCR) Not Detected (NotDetected) M. pneumoniae (PCR) Not Detected (NotDetected) Parainfluenza 1 (PCR) Not Detected (NotDetected) Parainfluenza 2 (PCR) Not Detected (NotDetected) Parainfluenza 3 (PCR) Not Detected (NotDetected) Parainfluenza 4 (PCR) Not Detected (NotDetected) RSV (PCR) Not Detected (NotDetected) Entero/Rhino (PCR) Not Detected (NotDetected) Administered Medications Azithromycin (Zithromax) 500 mg in 255 mls @ 127.5 mls/hr IV NOW ONE Stop: 05/21/25 16:24 Last Admin: 05/21/25 14:47 Dose: 127.5 mls/hr Documented By: dat Discontinued Medications Albuterol (Albut/Ipratrop 3mg/0.5mg Neb 3 Ml Vial) 12 ml INH ONE STA Stop: 05/21/25 13:48 Last Admin: 05/21/25 13:56 Dose: 12 ml Documented By: NIA Furosemide (Furosemide Inj 20 Mg/2 Ml Vial) 20 mg IV ONE ONE Stop: 05/21/25 14:30 Last Admin: 05/21/25 14:44 Dose: 20 mg Documented By: dat Cefepime HCl (Maxipime 2000mg) 2,000 mg in 20 mls @ 5 mls/min IV NOW STA; Protocol Stop: 05/21/25 14:28 Last Admin: 05/21/25 14:44 Dose: 5 mls/min Documented By: dat Imaging Data Radiologist's Impression: Chest X-Ray 05/21/25 13:47 Exam: Chest one view portable Reason for exam: Shortness of breath. Previous study: 04/04/2025 FINDINGS: Left-sided pacemaker again noted. Heart remains enlarged with central pulmonary venous hypertension. Central interstitial prominence and small pleural effusions are present suggesting continuing chronic CHF; and agree with the previous study. No new focal consolidation is seen. Three small nodules right lower lobe remain stable. IMPRESSION: Chronic CHF, similar radiographically to the prior study. Electronically signed by Shaggy Granda 05-21-2025 2:41 PM Discharge Plan Visit Data Chief Complaint: Shortness of Breath/Dyspnea Stated Complaint: SOB ED Provider: Erickson Nick Discharge Problem: Acute and chronic respiratory failure with hypercapnia, CHF (congestive heart failure), Asthma-COPD overlap syndrome Patient Disposition: Being Evaluated by Hospitalist Condition: Serious Forms Stand Alone Forms: My BIXI Prescriptions Prescriptions: No Action ferrous sulfate 325 mg (65 mg iron) tablet 325 mg PO 3XWK Rx Instructions: M/W/F with food (DME) lancets 33 gauge misc See Rx Instructions .Route Qty: 200 3RF Rx Instructions: OneTouch Delica - Test blood sugars twice a day insulin aspart U-100 [Novolog FlexPen U-100 Insulin] 100 unit/mL (3 mL) insulin pen See Rx Instructions subcut .COMPLEX MDD 20 units Qty: 30 3RF Hold Instructions: hold for now Rx Instructions: subcutaneously, three times a day with meals, and sliding scale for high blood sugar (DME) OneTouch Verio test strips Strip See Rx Instructions .ROUTE .MEDSUPPLY Qty: 300 3RF Rx Instructions: test blood sugar TID (DME) pen needle, diabetic [UltiCare Pen Needle] 31 gauge x 3/16" needle See Rx Instructions .Route Qty: 200 11RF Rx Instructions: Use 4 per day ropinirole 0.5 mg tablet 1.5 mg PO HS 90 Days Qty: 270 3RF Rx Instructions: TAKE 3 TABLETS (1.5 MG) AT BEDTIME metformin 1,000 mg tablet 1,000 mg PO QAM Qty: 90 3RF Rx Instructions: TAKE 1 TABLET BY MOUTH EVERY MORNING simvastatin 40 mg tablet 40 mg PO HS Qty: 90 3RF Rx Instructions: TAKE 1 TABLET AT BEDTIME amoxicillin 500 mg tablet 500 mg PO BID 30 Days Qty: 60 3RF dupilumab 300 mg/2 mL pen injector 300 mg subcut .COMPLEX Rx Instructions: inject 300mg SQ every 2 weeks; APPROVED GOOD 02/25/25-04/26/26 [id number] cholecalciferol (vitamin D3) 50 mcg (2,000 unit) capsule 50 mcg PO DAILY Qty: 30 0RF lorazepam 0.5 mg tablet 0.25 mg PO TID PRN (Reason: anxiety or shortness of breath) Qty: 15 0RF docusate sodium [Stool Softener] 100 mg tablet 100 mg PO BID multivitamin Tablet 1 tab PO QAM cyanocobalamin (vitamin B-12) 1,000 mcg capsule 1,000 mcg PO 3XWK Rx Instructions: Thursday, Thursday & Thursday Lantus Solostar U-100 Insulin 100 unit/mL (3 mL) insulin pen 8 unit SUBCUT HS Hold Instructions: hold for now Adult 50 Plus Probiotic 4 billion cell capsule 4,000 mmu cells PO QPM Rx Instructions: administer with a meal Breztri Aerosphere 160-9-4.8 mcg/actuation HFA aerosol inhaler 2 inh inhalation BID Qty: 3 3RF fluticasone propionate [Flonase Allergy Relief] 50 mcg/actuation spray,suspension 1 spray intranasal BID Qty: 18.2 2RF Rx Instructions: administer into each nostril cholecalciferol (vitamin D3) 75 mcg (3,000 unit) tablet 75 mcg PO DAILY albuterol sulfate [Ventolin HFA] 90 mcg/actuation HFA aerosol inhaler 2 puff INHALATION Q4H PRN (Reason: Shortness Of Breath Or Wheezing) Qty: 3 3RF Ohtuvayre 3 mg/2.5 mL suspension for nebulization 3 mg inhalation BID Qty: 150 11RF ipratropium-albuterol 0.5 mg-3 mg(2.5 mg base)/3 mL solution for nebulization 3 ml inhalation QID PRN (Reason: shortness of breath or wheezing) Qty: 360 12RF citalopram 20 mg tablet 20 mg PO DAILY 90 Days Qty: 90 2RF pantoprazole 40 mg tablet,delayed release (DR/EC) 40 mg PO QAM Qty: 90 3RF Rx Instructions: TAKE 1 TABLET DAILY furosemide 40 mg tablet 40 mg PO QAM 30 Days Qty: 90 3RF potassium chloride 20 mEq tablet extended release 20 meq PO DAILY Qty: 90 3RF Rx Instructions: Take with furosemide PreserVision AREDS-2 250-90-40-1 mg Capsule 1 tab PO BID magnesium oxide 400 mg (241.3 mg magnesium) Tablet 400 mg PO BID Qty: 60 0RF Rx Instructions: OTC nystatin-triamcinolone 100,000-0.1 unit/gram-% ointment 1 applic topical TID PRN (Reason: SKIN IRRITATIONS) Rx Instructions: apply sparingly to affected areas Neilmed Sinus Rinse Complete Packet With Rinse Device 1 ea DAILY Rx Instructions: use daily; Referrals Referrals: Felicia Costa MD [Primary Care Provider] -
[2025-05-21 14:17] LABS: Alanine Aminotransferase 10.0 U/L (7-52); Albumin Globulin Ratio 1.4 (0.9-2); Alkaline Phosphatase 57.0 U/L (34-104); Anion Gap 5.0 (3-11); Bilirubin,Total 0.4 mg/dl (0.2-1.0); Blood Urea Nitrogen 21.0 mg/dl (6-23); Calcium 9.7 mg/dl (8.6-10.3); Carbon Dioxide 36.0 mmol/L (21-32); Chloride 101.0 mmol/L (98-107); Creatinine Clr Calc Pharmacy 47.2 ml/min; Globulin 2.9 gm/dl (2.5-4.0); Glucose 200.0 mg/dl (70-99(Fasting)); Magnesium 1.9 mg/dl (1.7-2.4); Potassium 4.8 mmol/L (3.5-5.1); Sodium 142.0 mmol/L (136-145); Total Protein 6.9 gm/dl (6.0-8.3)
[2025-05-21 14:30] LABS: INR 1.0 (0.9-1.1); Prothrombin Time 10.4 Seconds (9.0-12.0)
--- NOTE | 2025-05-21 14:43 | XRay Report ---
Exam: Chest one view portable Reason for exam: Shortness of breath. Previous study: 04/04/2025 FINDINGS: Left-sided pacemaker again noted. Heart remains enlarged with central pulmonary venous hypertension. Central interstitial prominence and small pleural effusions are present suggesting continuing chronic CHF; and agree with the previous study. No new focal consolidation is seen. Three small nodules right lower lobe remain stable. IMPRESSION: Chronic CHF, similar radiographically to the prior study. Electronically signed by Shaggy Granda 05-21-2025 2:41 PM
[2025-05-21] MEDS: CEFEPIME 2000MG 2,000 MG/20 ML SYR IV STA (14:44)
[2025-05-21] MEDS: FUROSEMIDE INJ 20 MG/2 ML VIAL IV ONE (14:44)
[2025-05-21] MEDS: AZITHROMYCIN 500 MG/255 ML BAG IV ONE (14:47)
[2025-05-21 14:51] LABS: Chlamydia pneumoniae PCR Not Detected (NotDetected); Coronavirus 229E PCR Not Detected (NotDetected); Coronavirus CoV-2 (COVID19)PCR Not Detected (NotDetected); Coronavirus HKU1 PCR Not Detected (NotDetected); Coronavirus NL63 PCR Not Detected (NotDetected); Coronavirus OC43PCR Not Detected (NotDetected); Human Metapneumovirus PCR Not Detected (NotDetected); Parainfluenza Virus 1 PCR Not Detected (NotDetected); Parainfluenza Virus 2 PCR Not Detected (NotDetected); Parainfluenza Virus 3 PCR Not Detected (NotDetected); Parainfluenza Virus 4 PCR Not Detected (NotDetected); Respiratory Syncytial VirusPCR Not Detected (NotDetected); Rhinovirus/Enterovirus PCR Not Detected (NotDetected)
[2025-05-21 16:02] LABS: Base Excess VBG 6.0 mEq/L; HCO3 VBG 35 mmol/L; Oxygen Saturation VBG 86.3 %; PCO2 VBG 69 mmHg (38-50); PO2 VBG 53 mmHg; pH VBG 7.31 (7.36-7.41)
--- NOTE | 2025-05-21 17:17 | History & Physical Report ---
Date of Service May 21, 2025 Assessment & Plan (1) CHF (congestive heart failure): (2) Type 2 diabetes mellitus: (3) Acute and chronic respiratory failure with hypercapnia: Plan #Acute on chronic respiratory failure with hypercarbia #COPD - pH: 7.19, pCO2: 94 - biofire neg - s/p solumedrol and duoneb en route - on BiPAP support, repeat blood gas improving, but will continue BiPAP through the night - s/p cefepime / azithro in the ED, will continue this for now - solumedrol 40mg IV daily for now - keep NPO - cont home inhalers #Chronic diastolic HF - BNP 873 though clinically does not appear overtly volume overloaded - at home takes Lasix 40mg po daily - s/p 1 dose of Lasix 20mg IV in the ED , ordered Lasix 40mg IV daily - monitor volume status - monitor renal and electrolytes #DM II - pt is currently NPO - will start with sliding scale - monitor BG closely #HLD - cont statin #DVT ppx: hep subq #Code status: DNR / DNI (confirmed with pt) #Dispo: admit to PCU History of Present Illness Chief Complaint: difficulty breathing Primary Care Provider: Felicia Costa MD 79 yr old F with PMHx of asthma / COPD, chronic respiratory failure on 2-3L supplemental oxygen, moderate aortic stenosis, valvular heart disease, paroxysmal AFib, DM II, h/o AV block s/p PPM presents to [facility] on 05/21 for the evaluation of acute shortness of breath. Pt reports severe shortness of breath that started this morning. Due to being on BiPAP and dyspnea, she is not able to provide much history. She notes she feels tired and weak. She is currently comfortable and not offering any complaints. Allergies Allergy/AdvReac Type Severity Reaction Status Date / Time No Known Allergies Allergy Verified 05/21/25 14:50 Home Medications Medication Instructions Recorded Confirmed Type multivitamin 1 tab PO QAM 04/18/21 05/21/25 History vit C 250 mg-vit E 90 mg-zinc 40 1 tab PO BID 07/21/22 05/21/25 History mg-copper 1 [id number] capsule (PreserVision AREDS-2) magnesium oxide 400 mg (241.3 mg 400 mg PO BID #60 tabs 07/24/22 05/21/25 Rx magnesium) tablet lancets 33 gauge #200 ea 03/06/23 05/15/25 Rx insulin glargine 100 unit/mL (3 8 unit subcut HS 06/24/23 05/21/25 History mL) subcutaneous pen (Lantus Solostar U-100 Insulin) lactobacillus combination no.9 4 4,000 mmu cells PO QPM 06/24/23 05/21/25 History billion cell capsule (Adult 50 Plus Probiotic) docusate sodium 100 mg tablet 100 mg PO BID 08/21/23 05/21/25 History (Stool Softener) ferrous sulfate 325 mg (65 mg 325 mg PO 3XWK 02/08/24 05/21/25 History iron) tablet insulin aspart U-100 100 unit/mL See Rx Instructions subcut 03/04/24 05/21/25 Rx (3 mL) subcutaneous pen (Novolog .COMPLEX #30 mL FlexPen U-100 Insulin aspart) blood sugar diagnostic (OneTouch #300 ea 05/09/24 05/15/25 Rx Verio test strips) fluticasone propionate 50 1 spray intranasal BID #18.2 mL 05/24/24 05/21/25 Rx mcg/actuation nasal spray,suspension (Flonase Allergy Relief) ensifentrine 3 mg/2.5 mL 3 mg (2.5 mL) inhalation BID #150 07/18/24 05/21/25 Rx suspension for nebulization mL (Ohtuvayre) cyanocobalamin (vitamin B-12) 1,000 mcg PO 3XWK 10/06/24 05/21/25 History 1,000 mcg capsule pen needle, diabetic 31 gauge x #200 ea 11/21/24 05/15/25 Rx 3/16" (UltiCare Pen Needle) ropinirole 0.5 mg tablet 1.5 mg (3 x 0.5 mg) PO HS 90 days 01/23/25 05/21/25 Rx #270 tabs metformin 1,000 mg tablet 1,000 mg PO QAM #90 tabs 02/03/25 05/21/25 Rx simvastatin 40 mg tablet 40 mg PO HS #90 tabs 02/06/25 05/21/25 Rx budesonide 160 mcg-glycopyr 9 2 inh inhalation BID #3 Inhalers 02/15/25 05/21/25 Rx mcg-formot 4.8 mcg/actuation HFA inhaler (Breztri Aerosphere) ipratropium 0.5 mg-albuterol 3 mg 3 ml inhalation QID PRN shortness 02/23/25 05/21/25 Rx (2.5 mg base)/3 mL nebulization of breath or wheezing #360 mL soln amoxicillin 500 mg tablet 500 mg PO BID 30 days #60 tabs 03/08/25 05/21/25 Rx citalopram 20 mg tablet 20 mg PO DAILY 90 days #90 tabs 03/17/25 05/21/25 Rx nystatin-triamcinolone 100,000 1 applic topical TID PRN SKIN 04/02/25 05/21/25 History unit/gram-0.1 % topical ointment IRRITATIONS sodium chloride, sodium 1 ea DAILY 04/02/25 05/21/25 History bicarb-nasal rinse squeeze bottle with packet (TERMINALFOUR Sinus Rinse Complete with packet) furosemide 40 mg tablet 40 mg PO QAM 1 month #90 tabs 04/17/25 05/21/25 Rx pantoprazole 40 mg tablet,delayed 40 mg PO QAM #90 tabs 04/17/25 05/21/25 Rx release potassium chloride 20 mEq 20 meq PO DAILY #90 tabs 04/17/25 05/21/25 Rx tablet,extended release dupilumab 300 mg/2 mL subcutaneous 300 mg subcut .COMPLEX 04/28/25 05/21/25 History pen injector cholecalciferol (vitamin D3) 50 50 mcg PO DAILY #30 caps 05/02/25 05/21/25 Rx mcg (2,000 unit) capsule albuterol sulfate 90 mcg/actuation 2 puff inhalation Q4H PRN 05/15/25 05/21/25 Rx aerosol inhaler (Ventolin HFA) Shortness Of Breath Or Wheezing #3 inhalations cholecalciferol (vitamin D3) 75 75 mcg PO DAILY 05/15/25 05/21/25 History mcg (3,000 unit) tablet lorazepam 0.5 mg tablet 0.25 mg (1/2 x 0.5 mg) PO TID PRN 05/16/25 05/21/25 Rx anxiety or shortness of breath #15 tabs Past Med/Surg History Problem List (Updated 05/21/25 @ 14:40 by Erickson Nick M.D.) Asthma-COPD overlap syndrome (Acute) CHF (congestive heart failure) (Acute) Acute and chronic respiratory failure with hypercapnia (Acute) Acute hypoxic respiratory failure Acute diastolic (congestive) heart failure Type 2 diabetes mellitus Iron deficiency anemia Acute hypernatremia (Acute) Symptomatic anemia (Acute) Acute right flank pain (Acute) Epigastric abdominal pain (Acute) UGIB (upper gastrointestinal bleed) (Acute) Microscopic hematuria Aortic stenosis Abnormal chest CT Systolic murmur COPD (chronic obstructive pulmonary disease) Selective deficiency of IgG (Chronic) Pernicious anemia (Chronic) Mediastinal adenopathy (Chronic) Iron deficiency anemia secondary to inadequate dietary iron intake High-grade 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) use of 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 (Chronic) Paroxysmal atrial fibrillation Osteoporosis Diabetic peripheral 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) Restless leg syndrome (Chronic) Vitamin D deficiency Obstructive sleep apnea (Chronic) Refuses device per records Multiple pulmonary nodules (Chronic) HTN (hypertension) (Chronic) Esophageal reflux (Chronic) Dyslipidemia (Chronic) Medical History Nephrolithiasis Congestive heart failure Asthma-COPD overlap syndrome Acute kidney injury Severe aortic stenosis Chronic respiratory failure with hypoxia Type 2 diabetes mellitus, with long-term current use of insulin SNHL (sensorineural hearing loss) BPPV (benign paroxysmal positional vertigo) On home O2 Osteoarthritis History of DVT (deep vein thrombosis) Insomnia Peptic ulcer disease Hx of fracture of femur Surgical History History of lithotripsy History of eye removal History of appendectomy History of esophagogastroduodenoscopy (EGD) History of colonoscopy History of open reduction and internal fixation (ORIF) procedure History of tooth extraction History of removal of skin mole History of carpal tunnel release of both wrists Hx of colonoscopy History of bronchoscopy Hx of cataract extraction Hx of eye surgery H/O total hip arthroplasty Hx of total knee arthroplasty History of tonsillectomy and adenoidectomy Hx of cholecystectomy H/O: hysterectomy Family History Father Cardiovascular disease Diabetes Asthma Heart disease Brother Diabetes Cardiac disorder Mother Breast cancer Other Hypertension No family history of adverse response to anesthesia No family history of bleeding disorder Denies family history of Ovarian cancer Prostate cancer Myocardial infarction Colorectal cancer Social History Smoking Status: Never smoker Second Hand Exposure: No; Do You Dip or Chew Tobacco: No; Hx Alcohol Use: Yes Alcohol type: beer Hx Substance Use: No Preferred Language: Romanian Communication Ability: 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 Physical Exam Physical Exam: Gen: no acute distress, lying in bed comfortable HEENT: NC/AT, MMM Lungs: bipap supported respirations, auscultation limited in the setting of B iPAP CVS: s1s2nl, RRR Abd: nl bowel sounds, soft, NT / ND : no paez Ext: no edema Neuro: AAOx3 Psych: calm cooperative Results & Data Results & Data Vital Signs (Past 12 Hours) Vital Signs Temp Pulse Pulse Resp BP Pulse Ox O2 Del Method 05/21/25 16:42 74 23 95 05/21/25 16:03 74 23 95 05/21/25 15:44 76 05/21/25 15:41 84 19 141/73 H 94 05/21/25 15:40 82 21 96 05/21/25 14:05 80 20 96 BiPAP 05/21/25 14:00 75 21 96 05/21/25 13:47 97 Nasal Cannula 05/21/25 13:34 18 05/21/25 13:34 Room Air 05/21/25 13:27 36.7 C 81 16 170/81 H 97 Nasal Cannula O2 Flow Rate FiO2 05/21/25 16:42 05/21/25 16:03 05/21/25 15:44 05/21/25 15:41 05/21/25 15:40 30 05/21/25 14:05 30 05/21/25 14:00 30 05/21/25 13:47 3 05/21/25 13:34 05/21/25 13:34 05/21/25 13:27 3 PG Care Time/CCT Total # of Minutes Spent Total Time Spent with Patient: Total time spent is greater than 50% in coordination of care (as documented) at patient's floor/unit and/or counseling patient: Coding Level of Care Code 68198 INT INP/OBS CARE 3/75MIN Diagnoses CHF (congestive heart failure) I50.9 Type 2 diabetes mellitus E11.9 Acute and chronic respiratory failure with hypercapnia J96.22
[2025-05-21] MEDS ORDERED: GLUCAGON FOR INJ 1 MG VIAL SQ PRN (18:29)
[2025-05-21] MEDS ORDERED: GLUCOSE 10 TAB/TUBE PO PRN (18:29)
[2025-05-21] MEDS ORDERED: GLUCOSE 40% GEL 15 GM TUBE PO PRN (18:29)
[2025-05-21] MEDS ORDERED: CARBOHYDRATES FOR HYPOGLYCEMIA PO PRN (18:29)
[2025-05-21] MEDS ORDERED: ALBUTEROL HFA 8 GM INHALER INH PRN (18:29)
[2025-05-21] MEDS ORDERED: DEXTROSE 50% 50 ML SYRINGE IV PRN (18:29)
[2025-05-21] MEDS ORDERED: Nursing to Pharmacy Communication SCH (19:15)
[2025-05-21] MEDS ORDERED: NON-FORMULARY MEDICATION (Budesonide-Glycopyr-Formoterol [Breztri Aerosphere] 160-9-4.8 mc INH SCH (21:00)
[2025-05-21] MEDS ORDERED: INSULIN ASPART PER UNIT CHARGE SC SCH (21:00)
[2025-05-21] MEDS: FLUTICASONE PROPIONATE NA SPR 16 GM BTL NAE SCH (21:14)
[2025-05-21] MEDS: SIMVASTATIN 40 MG TAB PO SCH (21:16)
[2025-05-21] MEDS: CEFEPIME 2000MG 2,000 MG/20 ML SYR IV SCH (21:17)
[2025-05-21 21:20] LABS: Appearance Urine Clear (Clear); Bacteria Urine Automated 1+ (None Seen); Cast Urine Automated 0-2 /lpf (0-2); Epithelial Cell Urine Auto 0-2 /hpf (0-2); Glucose Urine UA Negative (Negative); WBC Urine Automated 0-5 /hpf (0-5)
[2025-05-21] MEDS: DOCUSATE SODIUM 100 MG CAP PO SCH (21:22)
[2025-05-21] MEDS: ALBUT/IPRATROP 3MG/0.5MG NEB 3 ML VIAL INH PRN (21:35)
[2025-05-22] MEDS: INSULIN ASPART PER UNIT CHARGE SC SCH ×2 (00:20→12:48)
[2025-05-22] MEDS: MELATONIN 3 MG TAB PO PRN (00:47)
[2025-05-22 05:54] LABS: Base Excess VBG 11.5 mEq/L; HCO3 VBG 39 mmol/L; Oxygen Saturation VBG 98.5 %; PCO2 VBG 61 mmHg (38-50); PO2 VBG 142 mmHg; pH VBG 7.41 (7.36-7.41)
[2025-05-22 06:02] LABS: Hematocrit (blood only) 25.2 % (37.0-47.0); Hemoglobin 7.3 g/dl (12.0-16.0); Immature Granulocytes # (auto) 0.05 K/uL (0.01-0.20); Immature Granulocytes % (auto) 0.7 %; Mean Corpuscular Hemoglobin 26.4 pg (25.0-34.0); Mean Corpuscular Volume 91.0 fL (80.0-100.0); Platelet Count 220 K/uL (130-400); RDW Standard Deviation 51.7 fL (36.4-46.3); Red Blood Count 2.77 M/uL (4.20-5.40); White Blood Count 7.22 K/ul (4.8-10.8)
[2025-05-22 06:23] LABS: Anion Gap 5.0 (3-11); Blood Urea Nitrogen 27.0 mg/dl (6-23); Calcium 9.4 mg/dl (8.6-10.3); Carbon Dioxide 35.0 mmol/L (21-32); Chloride 101.0 mmol/L (98-107); Creatinine Clr Calc Pharmacy 47.3 ml/min; Glucose 125.0 mg/dl (70-99(Fasting)); Magnesium 1.8 mg/dl (1.7-2.4); Potassium 4.6 mmol/L (3.5-5.1); Sodium 141.0 mmol/L (136-145)
[2025-05-22 06:37] LABS: RBC Morphology Unremarkable
[2025-05-22] MEDS: LORazepam 0.5 MG TAB PO PRN (06:44)
--- NOTE | 2025-05-22 07:20 | Electrocardiogram Report ---
Test Reason : Blood Pressure : */* mmHG Vent. Rate : 81 BPM Atrial Rate : * BPM P-R Int : * ms QRS Dur : 164 ms QT Int : 416 ms P-R-T Axes : * -8 -26 degrees QTcB Int : 483 ms Sinus rhythm with atrial ectopy and PVCs vs aberrancy Right bundle branch block Abnormal ECG When compared with ECG of 03-Apr-2025 04:33, Left anterior fascicular block is no longer Present Inverted T waves have replaced nonspecific T wave abnormality in Inferior leads Inverted T waves have replaced nonspecific T wave abnormality in Anterior leads T wave amplitude has increased in Lateral leads Confirmed by Hank Parker ([id number]) on 05/22/2025 7:19:57 AM Referred By: Confirmed By: Hank Parker
[2025-05-22] MEDS: UMECLIDINIUM/VILANTEROL 62.5/25MCG 7 PUFFS/INHALER INH SCH (08:53)
[2025-05-22] MEDS: CITALOPRAM 20 MG TAB PO SCH (08:54)
[2025-05-22] MEDS: FLUTICASONE FUROATE 200MCG 14 PUFFS/INHALER INH SCH (08:54)
[2025-05-22] MEDS: FUROSEMIDE 40 MG/4 ML VIAL IV SCH (08:54)
[2025-05-22] MEDS: HEPARIN SOD 5,000 UNIT/0.5 ML VIAL SQ SCH (08:55)
[2025-05-22] MEDS ORDERED: Nursing to Pharmacy Communication SCH ×2 (10:45→19:30)
[2025-05-22] MEDS: FUROSEMIDE 40 MG/4 ML VIAL IV ONE (14:00)
[2025-05-22 14:12] LABS: Hematocrit (blood only) 31.4 % (37.0-47.0); Hemoglobin 9.2 g/dl (12.0-16.0); Immature Granulocytes # (auto) 0.13 K/uL (0.01-0.20); Immature Granulocytes % (auto) 0.8 %; Mean Corpuscular Hemoglobin 27.1 pg (25.0-34.0); Mean Corpuscular Volume 92.6 fL (80.0-100.0); Platelet Count 344 K/uL (130-400); RDW Standard Deviation 54.2 fL (36.4-46.3); Red Blood Count 3.39 M/uL (4.20-5.40); White Blood Count 17.17 K/ul (4.8-10.8)
[2025-05-22 14:19] LABS: iSTAT Art Bld Gas Base Excess 7.0 meg/L (-9-1.8)
[2025-05-22 14:32] LABS: Anion Gap 5.0 (3-11); Blood Urea Nitrogen 31.0 mg/dl (6-23); Calcium 10.0 mg/dl (8.6-10.3); Carbon Dioxide 36.0 mmol/L (21-32); Chloride 98.0 mmol/L (98-107); Creatinine Clr Calc Pharmacy 36.1 ml/min; Glucose 235.0 mg/dl (70-99(Fasting)); Magnesium 2.0 mg/dl (1.7-2.4); Potassium 5.2 mmol/L (3.5-5.1); Sodium 139.0 mmol/L (136-145)
--- NOTE | 2025-05-22 15:23 | XRay Report ---
EXAM: Radiograph of the Chest 1 View INDICATION: Respiratory distress TECHNIQUE: Frontal view of the chest. COMPARISON: 05/21/2025 FINDINGS: Lungs and pleural spaces: New groundglass infiltrate right base. Stable pulmonary vascular congestion. Probable small pleural effusions. No pneumothorax. Heart: Stable enlargement and pacing device. Mediastinum: Normal contour. Bones/joints: No fracture, erosion or dislocation. Soft tissues: No abnormality noted. No radiopaque foreign body noted. Upper abdomen: No abnormality noted. IMPRESSION: Stable vascular congestion and new mild/developing infiltrate right base. ACT 112: N/A Electronically signed by Sejal Blackwell 05-22-2025 3:23 PM
[2025-05-22] MEDS: AZITHROMYCIN 500 MG/255 ML BAG IV SCH (16:54)
--- NOTE | 2025-05-22 18:57 | Hospitalist Progress Note ---
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 HOST evaluated - cont home inhalers #Chronic diastolic HF - BNP 873 though clinically does not appear overtly volume overloaded - at home takes Lasix 40mg po daily - s/p 1 dose of Lasix 20mg IV in the ED , ordered Lasix 40mg IV daily (hold further dosing as pt received additional dose during Rapid Response) - monitor volume status - monitor renal and electrolytes #DM II - pt is currently NPO - cont glycemic management - monitor BG closely #HLD - cont statin #DVT ppx: hep subq #Code status: DNR / DNI (confirmed with pt) #Dispo: pending clinical improvement Admission and Anticipated Discharge Date Admission Date: May 21, 2025 Subjective Pt was able to come off of BiPAP, however, after lunch, she started again with severe shortness of breath, diaphoretic, hypoxic and Code Purple was called Pt's EKG reviewed with cardiology without any acute changes, trop trending down CXR showing infiltrate WBC elevated but also pt received steroids Pt denied choking on food Pt was also very hypertensive during the episode and received 1 dose of IV Lasix Review of Systems Review of Systems: Comprehensive ROS completed and is otherwise negative. Physical Exam Physical Exam: Gen: no acute distress, lying in bed comfortable HEENT: NC/AT, MMM Lungs: bipap supported respirations, auscultation limited in the setting of BiPAP CVS: s1s2nl, RRR Abd: nl bowel sounds, soft, NT / ND : no paez Ext: no edema Neuro: AAOx3 Psych: calm cooperative Results & Data Results & Data Vital Signs (Past 12 Hours) Vital Signs Temp Pulse Pulse Resp BP Pulse Ox O2 Del Method 05/22/25 18:00 97 Oxymask 05/22/25 17:02 36.5 C 74 19 166/73 H 100 Oxymask 05/22/25 14:10 72 209/63 H 97 CPAP 05/22/25 14:09 36.5 C 72 195/66 H CPAP 05/22/25 13:47 88 22 98 05/22/25 12:29 75 16 97 Nasal Cannula 05/22/25 11:54 Nasal Cannula 05/22/25 11:48 66 05/22/25 10:51 36.5 C 62 19 178/83 H 98 Nasal Cannula 05/22/25 07:26 36.6 C 74 18 151/70 H 98 Nasal Cannula 05/22/25 07:09 70 16 99 O2 Flow Rate FiO2 05/22/25 18:00 5 05/22/25 17:02 6 05/22/25 14:10 05/22/25 14:09 05/22/25 13:47 65 05/22/25 12:29 3 05/22/25 11:54 3 05/22/25 11:48 05/22/25 10:51 6 05/22/25 07:26 4 05/22/25 07:09 PG Care Time/CCT Total # of Minutes Spent Total Time Spent with Patient: Total time spent is greater than 50% in coordination of care (as documented) at patient's floor/unit and/or counseling patient: Coding Level of Care Code 89062 SUB INP/OBS CARE 3/50MIN Diagnoses CHF (congestive heart failure) I50.9 Type 2 diabetes mellitus E11.9 Acute and chronic respiratory failure with hypercapnia J96.22
[2025-05-22] MEDS: OHTUVAYRE NEB SCH (19:23)
[2025-05-22 19:57] LABS: Anion Gap 6.0 (3-11); Blood Urea Nitrogen 35.0 mg/dl (6-23); Calcium 9.4 mg/dl (8.6-10.3); Carbon Dioxide 37.0 mmol/L (21-32); Chloride 98.0 mmol/L (98-107); Creatinine Clr Calc Pharmacy 33.8 ml/min; Glucose 127.0 mg/dl (70-99(Fasting)); Potassium 4.7 mmol/L (3.5-5.1); Sodium 141.0 mmol/L (136-145)
[2025-05-22] MEDS: PIPERACILLIN/TAZOBACTAM 4.5 GM/100 ML BAG IV SCH (21:49)
[2025-05-23] MEDS: INSULIN ASPART PER UNIT CHARGE SC SCH (00:15)
[2025-05-23 06:26] LABS: Hematocrit (blood only) 26.7 % (37.0-47.0); Hemoglobin 7.8 g/dl (12.0-16.0); Immature Granulocytes # (auto) 0.03 K/uL (0.01-0.20); Immature Granulocytes % (auto) 0.4 %; Mean Corpuscular Hemoglobin 27.0 pg (25.0-34.0); Mean Corpuscular Volume 92.4 fL (80.0-100.0); Platelet Count 228 K/uL (130-400); RDW Standard Deviation 54.0 fL (36.4-46.3); Red Blood Count 2.89 M/uL (4.20-5.40); White Blood Count 8.20 K/ul (4.8-10.8)
[2025-05-23 06:44] LABS: Ovalocytes 1+; Polychromasia 1+
[2025-05-23 06:52] LABS: Anion Gap 4.0 (3-11); Blood Urea Nitrogen 32.0 mg/dl (6-23); Calcium 9.2 mg/dl (8.6-10.3); Carbon Dioxide 40.0 mmol/L (21-32); Chloride 98.0 mmol/L (98-107); Creatinine Clr Calc Pharmacy 37.2 ml/min; Glucose 103.0 mg/dl (70-99(Fasting)); Magnesium 1.9 mg/dl (1.7-2.4); Potassium 3.9 mmol/L (3.5-5.1); Sodium 142.0 mmol/L (136-145)
--- NOTE | 2025-05-23 10:48 | Electrocardiogram Report ---
Test Reason : Blood Pressure : */* mmHG Vent. Rate : 85 BPM Atrial Rate : 85 BPM P-R Int : 134 ms QRS Dur : 166 ms QT Int : 388 ms P-R-T Axes : 69 -64 83 degrees QTcB Int : 461 ms Poor data quality, interpretation may be adversely affected Normal sinus rhythm with sinus arrhythmia Right bundle branch block Left anterior fascicular block Bifascicular block Left ventricular hypertrophy with repolarization abnormality Abnormal ECG When compared with ECG of 21-May-2025 13:53, Sinus rhythm has replaced Atrial fibrillation Left anterior fascicular block is now Present T wave inversion no longer evident in Inferior leads Confirmed by Hank Parker ([id number]) on 05/23/2025 10:47:44 AM Referred By: REFERRED SELF Confirmed By: Hank Parker
--- NOTE | 2025-05-23 19:30 | Hospitalist Progress Note ---
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 , video swallow pending for 05/24 - cont home inhalers #Chronic diastolic HF - BNP 873 though clinically does not appear overtly volume overloaded - at home takes Lasix 40mg po daily - s/p 1 dose of Lasix 20mg IV in the ED , ordered Lasix 40mg IV daily (hold further dosing as pt received additional dose during Rapid Response) - monitor volume status - monitor renal and electrolytes #DM II - pt is currently NPO - cont glycemic management - monitor BG closely #HLD - cont statin #DVT ppx: hep subq #Code status: DNR / DNI (confirmed with pt) #Dispo: pending clinical improvement Admission and Anticipated Discharge Date Admission Date: May 21, 2025 Subjective no acute events overnight Currently states her breathing is much better Review of Systems Review of Systems: Comprehensive ROS completed and is otherwise negative. Physical Exam Physical Exam: Gen: no acute distress, lying in bed comfortable HEENT: NC/AT, MMM, enucleation of right eye Lungs: diminished breath sounds at the bases without expiratory wheezing CVS: s1s2nl, RRR Abd: nl bowel sounds, soft, NT / ND : no paez Ext: no edema Neuro: AAOx3 Psych: calm cooperative Results & Data Results & Data Vital Signs (Past 12 Hours) Vital Signs Temp Pulse Pulse Resp BP Pulse Ox O2 Del Method 05/23/25 15:58 36.6 C 80 17 138/71 97 Nasal Cannula 05/23/25 13:58 68 05/23/25 10:43 36.6 C 76 18 152/75 H 99 Nasal Cannula 05/23/25 10:42 99 Nasal Cannula 05/23/25 07:49 70 05/23/25 07:49 Oxymask O2 Flow Rate 05/23/25 15:58 2 05/23/25 13:58 05/23/25 10:43 3 05/23/25 10:42 3 05/23/25 07:49 05/23/25 07:49 4 PG Care Time/CCT Total # of Minutes Spent Total Time Spent with Patient: Total time spent is greater than 50% in coordination of care (as documented) at patient's floor/unit and/or counseling patient: Coding Level of Care Code 83831 SUB INP/OBS CARE 2/35MIN Diagnoses CHF (congestive heart failure) I50.9 Type 2 diabetes mellitus E11.9 Acute and chronic respiratory failure with hypercapnia J96.22
[2025-05-24 06:15] LABS: Hematocrit (blood only) 25.5 % (37.0-47.0); Hemoglobin 7.6 g/dl (12.0-16.0); Immature Granulocytes # (auto) 0.03 K/uL (0.01-0.20); Immature Granulocytes % (auto) 0.4 %; Mean Corpuscular Hemoglobin 27.0 pg (25.0-34.0); Mean Corpuscular Volume 90.4 fL (80.0-100.0); Platelet Count 211 K/uL (130-400); RDW Standard Deviation 51.8 fL (36.4-46.3); Red Blood Count 2.82 M/uL (4.20-5.40); White Blood Count 6.95 K/ul (4.8-10.8)
[2025-05-24 06:32] LABS: Anion Gap 5.0 (3-11); Blood Urea Nitrogen 30.0 mg/dl (6-23); Calcium 9.0 mg/dl (8.6-10.3); Carbon Dioxide 39.0 mmol/L (21-32); Chloride 97.0 mmol/L (98-107); Creatinine Clr Calc Pharmacy 42.2 ml/min; Glucose 96.0 mg/dl (70-99(Fasting)); Magnesium 1.9 mg/dl (1.7-2.4); Potassium 3.7 mmol/L (3.5-5.1); Sodium 141.0 mmol/L (136-145)
[2025-05-24 06:46] LABS: RBC Morphology Unremarkable
--- NOTE | 2025-05-24 08:23 | Hospitalist Progress Note ---
Date of Service May 24, 2025 Assessment & Plan (1) CHF (congestive heart failure): (2) Type 2 diabetes mellitus: (3) Acute and chronic respiratory failure with hypercapnia: Plan #Acute on chronic respiratory failure with hypercarbia #COPD - on admission pH: 7.19, pCO2: 94 - biofire neg - s/p solumedrol and duoneb en route - was on cefepime / vanc, vanc d/c-ed, cefepime switched to zosyn given aspiration concern, changed to unasyn, to be given through 05/26 for 5 day course - solumedrol 40mg IV daily changed to prednisone 40mg po daily through 05/26/25 for a total of 5 day course - Video swallow study reviewed, modified diet reordered - cont home inhalers #Chronic diastolic HF - BNP 873 though clinically does not appear overtly volume overloaded - at home takes Lasix 40mg po daily - s/p 1 dose of Lasix 20mg IV in the ED , ordered Lasix 40mg IV daily (hold further dosing as pt received additional dose during Rapid Response) - monitor volume status - monitor renal and electrolytes #DM II - pt is currently NPO - cont glycemic management - monitor BG closely #HLD - cont statin #DVT ppx: hep subq #Code status: DNR / DNI (confirmed with pt) #Dispo: potential d/c 05/25 pending PT / OT eval Admission and Anticipated Discharge Date Admission Date: May 21, 2025 Subjective no acute events overnight currently complaining of some headache Review of Systems Review of Systems: Comprehensive ROS completed and is otherwise negative. Physical Exam Physical Exam: Gen: no acute distress, lying in bed comfortable HEENT: NC/AT, MMM, enucleation of right eye Lungs: diminished breath sounds at the bases without expiratory wheezing CVS: s1s2nl, II/V RADHA, RRR Abd: nl bowel sounds, soft, NT / ND : no paez Ext: no edema Neuro: AAOx3 Psych: calm cooperative Results & Data Results & Data Vital Signs (Past 12 Hours) Vital Signs Temp Pulse Pulse Resp BP Pulse Ox O2 Del Method 05/24/25 07:21 36.7 C 73 17 151/69 H 98 Nasal Cannula 05/24/25 06:28 85 18 96 Nasal Cannula 05/24/25 03:48 36.4 C L 70 17 118/69 96 Nasal Cannula 05/23/25 23:26 36.6 C 78 16 140/58 L 96 BiPAP 05/23/25 22:04 82 20 97 05/23/25 21:51 73 O2 Flow Rate FiO2 05/24/25 07:21 3 05/24/25 06:28 2 05/24/25 03:48 2 05/23/25 23:26 05/23/25 22:04 50 05/23/25 21:51 PG Care Time/CCT Total # of Minutes Spent Total Time Spent with Patient: Total time spent is greater than 50% in coordination of care (as documented) at patient's floor/unit and/or counseling patient: Coding Level of Care Code 22268 SUB INP/OBS CARE 235MIN Diagnoses CHF (congestive heart failure) I50.9 Type 2 diabetes mellitus E11.9 Acute and chronic respiratory failure with hypercapnia J96.22
[2025-05-24] MEDS: ACETAMINOPHEN 1,000 MG/100 ML VIAL IV PRN (09:13)
[2025-05-24] MEDS: AMPICILLIN/SULBACTAM SOD 3,000 MG/100 ML BAG IV SCH (14:35)
--- NOTE | 2025-05-24 16:06 | Fluoroscopy Report ---
MODIFIED BARIUM SWALLOW CLINICAL HISTORY: r/o aspiration COMPARISON STUDY: None FLUOROSCOPY TIME: 1.29 minutes. Ka,r: 9.4 mGy TECHNIQUE: A modified barium swallow was performed in conjunction with Speech Pathology. The patient ingested varying consistencies of barium containing material. Video fluoroscopy was performed. FINDINGS: When swallowing thin liquid barium with a teaspoon there was flash penetration but no aspir ation. When drinking thin liquids through a straw, there was flash trace penetration but no aspiratio n. When swallowing nectar thick liquids there is no penetration or aspiration. When swallowing puddin g, there is no penetration or aspiration. When swallowing a cracker coated with pudding, there was no penetration or aspiration. There was premature leakage with a delayed swallow. Note is made of disordered esophageal motility with tertiary contractions. IMPRESSION: 1. Transient penetration but no evidence for aspiration when swallowing thin liquids 2. Prolonged mastication with premature leakage and a delayed swallow absent when swallowing solids. 3. Disordered esophageal motility with tertiary contractions ACT 112: Negative or not required by law. Electronically signed by: Leonidas Aaron M.D. 05/24/2025 4:04 PM
[2025-05-24] MEDS ORDERED: Nursing to Pharmacy Communication SCH (20:45)
[2025-05-24] MEDS: INSULIN ASPART PER UNIT CHARGE SC SCH (20:49)
[2025-05-25] MEDS: predniSONE 20 MG TAB PO SCH (07:58)
[2025-05-25] MEDS: IRON SUCROSE 200 MG in SODIUM CHLORIDE 0.9% 100 ML IV ONE (07:59)
[2025-05-25 15:03] VITALS: BP 153/66; PULSE 72; RESP 19; TEMP 97.9; O2SAT 98
--- NOTE | 2025-05-25 15:45 | Discharge Summary ---
Discharge Summary Date of Service May 25, 2025 Principal Dx & Hospital Course #1 = Principal Diagnosis (1) CHF (congestive heart failure): (2) Type 2 diabetes mellitus: (3) Acute and chronic respiratory failure with hypercapnia: Plan #Acute on chronic respiratory failure with hypercarbia #COPD #Aspiration - on admission pH: 7.19, pCO2: 94 - biofire neg - s/p solumedrol and duoneb en route - was on cefepime / vanc, vanc d/c-ed, cefepime switched to zosyn given aspiration concern, changed to unasyn, to be given through 05/26 for 5 day course - solumedrol 40mg IV daily changed to prednisone 40mg po daily through 05/26/25 for a total of 5 day course - Video swallow study reviewed, modified diet reordered, no further episodes - cont home inhalers #Chronic diastolic HF - BNP 873 though clinically does not appear overtly volume overloaded - at home takes Lasix 40mg po daily - s/p 1 dose of Lasix 20mg IV in the ED , ordered Lasix 40mg IV daily (hold further dosing as pt received additional dose during Rapid Response) - pt to continue her home lasix dose #DM II - pt is currently NPO - cont glycemic management - monitor BG closely #HLD - cont statin #Iron deficiency - s/p venofer 200mg IV x1 #Code status: DNR / DNI (confirmed with pt) #Dispo: PT / OT recs home with home PT, CM set up home PT Admission HPI Per Admitting Provider 79 yr old F with PMHx of asthma / COPD, chronic respiratory failure on 2-3L supplemental oxygen, moderate aortic stenosis, valvular heart disease, paroxysmal AFib, DM II, h/o AV block s/p PPM presents to [facility] on 05/21 for the evaluation of acute shortness of breath. Pt reports severe shortness of breath that started this morning. Due to being on BiPAP and dyspnea, she is not able to provide much history. She notes she feels tired and weak. She is currently comfortable and not offering any complaints. Discharge Exam Gen: no acute distress, lying in bed comfortable HEENT: NC/AT, MMM, enucleation of right eye Lungs: diminished breath sounds at the bases without expiratory wheezing CVS: s1s2nl, II/V RADHA, RRR Abd: nl bowel sounds, soft, NT / ND : no paez Ext: no edema Neuro: AAOx3 Psych: calm cooperative Discharge Plan Discharge Items Patient Disposition: Home - Home Health Services Reason For Visit: ACUTE DYSPNEA Discharge Diagnosis: Acute dyspnea in the setting of aspiration Condition on Discharge: Serious Activity: Resume your previous activity Non-emergency contact: Primary Care Provider Call non-emergency contact if: you have any medication questions, your symptoms worsen and you have a fever Follow-up/Referrals: Felicia Costa MD [Primary Care Provider] - Diet: Carb Consistent or DM2 and Heart Healthy Diet Texture: Dental soft (bite-sized) Addtl Attending Provider Instructions: Your symptoms were attributed to possible aspiration You were evaluated by speech therapy and your diet has been modified You were treated with antibiotics Please follow up with your primary care doctor in about 7 to 10 days Pending Studies at Discharge: No Stand-Alone Forms: My [employer] (ServiceCEO), Smoking Cessation Medications and DC Order Prescriptions: New prednisone 20 mg Tablet 40 mg PO DAILY Qty: 1 0RF amoxicillin-pot clavulanate 875-125 mg tablet 1 tab PO BID Qty: 3 0RF Continued ferrous sulfate 325 mg (65 mg iron) tablet 325 mg PO 3XWK Rx Instructions: M/W/F with food (DME) lancets 33 gauge misc See Rx Instructions .Route Qty: 200 3RF Rx Instructions: OneTouch Delica - Test blood sugars twice a day insulin aspart U-100 [Novolog FlexPen U-100 Insulin] 100 unit/mL (3 mL) insulin pen See Rx Instructions subcut .COMPLEX MDD 20 units Qty: 30 3RF Hold Instructions: hold for now Rx Instructions: subcutaneously, three times a day with meals, and sliding scale for high blood sugar (DME) OneTouch Verio test strips Strip See Rx Instructions .ROUTE .MEDSUPPLY Qty: 300 3RF Rx Instructions: test blood sugar TID (DME) pen needle, diabetic [UltiCare Pen Needle] 31 gauge x 3/16" needle See Rx Instructions .Route Qty: 200 11RF Rx Instructions: Use 4 per day ropinirole 0.5 mg tablet 1.5 mg PO HS 90 Days Qty: 270 3RF Rx Instructions: TAKE 3 TABLETS (1.5 MG) AT BEDTIME metformin 1,000 mg tablet 1,000 mg PO QAM Qty: 90 3RF Rx Instructions: TAKE 1 TABLET BY MOUTH EVERY MORNING simvastatin 40 mg tablet 40 mg PO HS Qty: 90 3RF Rx Instructions: TAKE 1 TABLET AT BEDTIME dupilumab 300 mg/2 mL pen injector 300 mg subcut .COMPLEX Rx Instructions: inject 300mg SQ every 2 weeks; APPROVED GOOD 02/25/25-04/26/26 [id number] cholecalciferol (vitamin D3) 50 mcg (2,000 unit) capsule 50 mcg PO DAILY Qty: 30 0RF lorazepam 0.5 mg tablet 0.25 mg PO TID PRN (Reason: anxiety or shortness of breath) Qty: 15 0RF docusate sodium [Stool Softener] 100 mg tablet 100 mg PO BID multivitamin Tablet 1 tab PO QAM cyanocobalamin (vitamin B-12) 1,000 mcg capsule 1,000 mcg PO 3XWK Rx Instructions: Thursday, Thursday & Thursday Lantus Solostar U-100 Insulin 100 unit/mL (3 mL) insulin pen 8 unit SUBCUT HS Hold Instructions: hold for now Adult 50 Plus Probiotic 4 billion cell capsule 4,000 mmu cells PO QPM Rx Instructions: administer with a meal Breztri Aerosphere 160-9-4.8 mcg/actuation HFA aerosol inhaler 2 inh inhalation BID Qty: 3 3RF fluticasone propionate [Flonase Allergy Relief] 50 mcg/actuation spray,suspension 1 spray intranasal BID Qty: 18.2 2RF Rx Instructions: administer into each nostril cholecalciferol (vitamin D3) 75 mcg (3,000 unit) tablet 75 mcg PO DAILY albuterol sulfate [Ventolin HFA] 90 mcg/actuation HFA aerosol inhaler 2 puff INHALATION Q4H PRN (Reason: Shortness Of Breath Or Wheezing) Qty: 3 3RF Ohtuvayre 3 mg/2.5 mL suspension for nebulization 3 mg inhalation BID Qty: 150 11RF ipratropium-albuterol 0.5 mg-3 mg(2.5 mg base)/3 mL solution for nebulization 3 ml inhalation QID PRN (Reason: shortness of breath or wheezing) Qty: 360 12RF citalopram 20 mg tablet 20 mg PO DAILY 90 Days Qty: 90 2RF pantoprazole 40 mg tablet,delayed release (DR/EC) 40 mg PO QAM Qty: 90 3RF Rx Instructions: TAKE 1 TABLET DAILY furosemide 40 mg tablet 40 mg PO QAM 30 Days Qty: 90 3RF potassium chloride 20 mEq tablet extended release 20 meq PO DAILY Qty: 90 3RF Rx Instructions: Take with furosemide PreserVision AREDS-2 250-90-40-1 mg Capsule 1 tab PO BID magnesium oxide 400 mg (241.3 mg magnesium) Tablet 400 mg PO BID Qty: 60 0RF Rx Instructions: OTC nystatin-triamcinolone 100,000-0.1 unit/gram-% ointment 1 applic topical TID PRN (Reason: SKIN IRRITATIONS) Rx Instructions: apply sparingly to affected areas Neilmed Sinus Rinse Complete Packet With Rinse Device 1 ea DAILY Rx Instructions: use daily; Discontinued amoxicillin 500 mg tablet 500 mg PO BID 30 Days Qty: 60 3RF Discharge Orders: Discharge Order (Routine); Ordered 05/25/25 Ordered By: Magdalena Llanes Admission Data Admit Date/Time: 05/21/25 17:09 Attending Provider: Magdalena Llanes Admit Provider: Magdalena Llanes Primary Care Provider: Felicia Costa Other Providers: Magdalena Llanes; [facility] Other Interventions: Discharge Summary Assessment (RN) Last Done: 05/25/25 14:10 Hospital Stay Data Consultations 05/21/25 14:57 ED Decision to Admit Stat Diagnostic Imagining Performed 05/24/25 13:45 FL video swallow Routine Discharge Instructions Given to Patient (Per Discharging Provider) Your symptoms were attributed to possible aspiration You were evaluated by speech therapy and your diet has been modified You were treated with antibiotics Please follow up with your primary care doctor in about 7 to 10 days Total Time Total Time Spent Total Time Spent (In Minutes): 35 Coding Level of Care Code 98091 INP/OBS DISCH >30 MIN Diagnoses CHF (congestive heart failure) I50.9 Type 2 diabetes mellitus E11.9 Acute and chronic respiratory failure with hypercapnia J96.22
== END 2025-05-25 16:48 | disposition home health service (06) | DRG 189 ==
LOC: ED 13:37 → 4W 17:09